=== PATIENT | female | born 1955 | race Caucasian/White ===

== ENCOUNTER → 2017-06-17 13:10 | Outpatient (CLI) | payer OTHER, SELFPAY ==
[2017-04-11 13:09] VITALS: BMI 21.4
[2017-04-11 14:24] VITALS: BP 111/46
[2017-06-17 13:37] LABS: Absolute Lymphocyte Count 2.34 X10^3/ul (0.83-4.51); Basophil# 0.03 X10^3/uL; Basophil% 0.4 % (0-1); Eosinophil# 0.07 X10^3/uL; Hematocrit 42.7 % (37-47); Hemoglobin 13.9 g/dl (12.0-15.0); Lymphocyte # 2.34 X10^3/ul (4.0); Lymphocyte % 33.3 % (19-41); Mean Corp Hgb Conc 32.6 g/gl (32-36); Mean Corpuscular Hgb 30.5 pg (27.0-32.0); Mean Corpuscular Volume 93.8 fL (81-99); Mean Platelet Vol. 10.8 fl (6.2-12.0); Monocyte# 0.58 X10^3/uL; Monocyte% 8.3 % (0-10); Neutrophil % 56.9 % (47-70); Platelet Count 170 K/mm3 (150-450); Red Blood Count 4.55 M/mm3 (4.2-5.4)
[2017-06-17 13:41] LABS: POSITIVE COUNT NO; POSITIVE DIFFERENTIAL NO; POSITIVE MORPHOLOGY NO
[2017-06-17 14:02] LABS: AST(SGOT) 19 U/L (15-37); Alanine Aminotransfer ALT/SGPT 27 U/L (13-56); Albumin, Serum 3.9 g/dL (3.2-5.0); Alkaline Phosphatase 88 U/L (45-117); Anion Gap 6 (5-15); BUN 13 mg/dL (7-18); BUN/Creat Ratio 19.3 RATIO (10-20); Calcium,Total 9.3 mg/dL (8.5-10.1); Chloride 107 mmol/L (98-107); Creatinine, Serum 0.67 mg/dL (0.55-1.02); EST Glomerular Filtration Rate 94 mL/min (>60); Est Glom Filt Rate - Afr Amer 114 mL/min (>60); Globulin 3.8 g/dL (2.2-4.2); Glucose 102 mg/dL (74-106); Potassium 4.2 mmol/L (3.5-5.1); Protein, Total 7.7 g/dL (6.4-8.2); Sodium Level 142 mmol/L (136-145)
== END ==
PROVIDERS: Family Provider Family Medicine; PCP Family Medicine; Visit Provider Internal Medicine Rheumatology
DX: L40.59 Other psoriatic arthropathy (principal); Z79.899 Other long term (current) drug therapy; L40.8 Other psoriasis; I49.9 Cardiac arrhythmia, unspecified
CPT/HCPCS: 36415; 80053; 85025

== ENCOUNTER → 2017-09-05 13:23 | Outpatient (CLI) | payer OTHER, SELFPAY ==
[2017-09-05 13:55] LABS: Absolute Lymphocyte Count 2.15 X10^3/ul (0.83-4.51); Absolute Neutrophil Count 3.6 X10^3/uL (2.0-7.7); Basophil# 0.04 X10^3/uL; Basophil% 0.6 % (0-1); Eosinophil# 0.04 X10^3/uL; Eosinophils% 0.6 % (0-5); Hematocrit 39.2 % (37-47); Hemoglobin 13.2 g/dl (12.0-15.0); Lymphocyte # 2.15 X10^3/ul (4.0); Lymphocyte % 32.8 % (19-41); Mean Corp Hgb Conc 33.7 g/gl (32-36); Mean Corpuscular Hgb 31.7 pg (27.0-32.0); Mean Corpuscular Volume 94.2 fL (81-99); Mean Platelet Vol. 10.8 fl (6.2-12.0); Monocyte# 0.72 X10^3/uL; Neutrophil % 54.8 % (47-70); Platelet Count 167 K/mm3 (150-450); RBC Distribution Width CV 14.1 % (11.6-14.6); RBC Distribution Width SD 46.5 fl (35.1-43.9); Red Blood Count 4.16 M/mm3 (4.2-5.4); White Blood Count 6.6 K/mm3 (4.4-11.0)
[2017-09-05 14:02] LABS: POSITIVE COUNT NO; POSITIVE DIFFERENTIAL NO; POSITIVE MORPHOLOGY NO
[2017-09-05 14:15] LABS: ALB/GLOB Ratio 1.1 RATIO (0.9-2.4); AST(SGOT) 29 U/L (15-37); Alanine Aminotransfer ALT/SGPT 32 U/L (13-56); Albumin, Serum 3.9 g/dL (3.2-5.0); Alkaline Phosphatase 93 U/L (45-117); Anion Gap 6 (5-15); BUN 18 mg/dL (7-18); BUN/Creat Ratio 25.1 RATIO (10-20); Chloride 108 mmol/L (98-107); Creatinine, Serum 0.72 mg/dL (0.55-1.02); EST Glomerular Filtration Rate 87 mL/min (>60); Est Glom Filt Rate - Afr Amer 106 mL/min (>60); Globulin 3.6 g/dL (2.2-4.2); Glucose 87 mg/dL (74-106); Potassium 3.7 mmol/L (3.5-5.1); Protein, Total 7.5 g/dL (6.4-8.2); Sodium Level 141 mmol/L (136-145)
== END ==
PROVIDERS: Family Provider Family Medicine; PCP Family Medicine; Visit Provider Internal Medicine Rheumatology
DX: L40.59 Other psoriatic arthropathy (principal); Z79.899 Other long term (current) drug therapy; L40.8 Other psoriasis; I49.9 Cardiac arrhythmia, unspecified
CPT/HCPCS: 36415; 80053; 85025

== ENCOUNTER → 2017-11-30 14:04 | Outpatient (CLI) | payer OTHER, SELFPAY ==
[2017-11-30 15:09] LABS: Basophil% 0.4 % (0-1); Eosinophils% 0.9 % (0-5); Hematocrit 40.7 % (37-47); Hemoglobin 13.5 g/dl (12.0-15.0); Lymphocyte % 29.8 % (19-41); Mean Corp Hgb Conc 33.2 g/gl (32-36); Mean Corpuscular Volume 93.6 fL (81-99); Mean Platelet Vol. 11.3 fl (6.2-12.0); Monocyte% 8.7 % (0-10); Neutrophil # 4.65 X10^3/uL (2.7-7.7); Neutrophil % 60.1 % (47-70); Platelet Count 160 K/mm3 (150-450); RBC Distribution Width CV 13.5 % (11.6-14.6); RBC Distribution Width SD 46.1 fl (35.1-43.9); Red Blood Count 4.35 M/mm3 (4.2-5.4); White Blood Count 7.7 K/mm3 (4.4-11.0)
[2017-11-30 15:10] LABS: Absolute Lymphocyte Count 2.31 X10^3/ul (0.83-4.51); Absolute Neutrophil Count 4.7 X10^3/uL (2.0-7.7); Basophil# 0.03 X10^3/uL; Eosinophil# 0.07 X10^3/uL; Lymphocyte # 2.31 X10^3/ul (4.0); Monocyte# 0.67 X10^3/uL; POSITIVE COUNT NO; POSITIVE DIFFERENTIAL NO; POSITIVE MORPHOLOGY NO
[2017-11-30 16:28] LABS: ALB/GLOB Ratio 1.1 RATIO (0.9-2.4); AST(SGOT) 22 U/L (15-37); Alanine Aminotransfer ALT/SGPT 30 U/L (13-56); Albumin, Serum 3.8 g/dL (3.2-5.0); Alkaline Phosphatase 82 U/L (45-117); Anion Gap 8 (5-15); BUN 18 mg/dL (7-18); Calcium,Total 9.1 mg/dL (8.5-10.1); Chloride 107 mmol/L (98-107); Creatinine, Serum 0.86 mg/dL (0.55-1.02); EST Glomerular Filtration Rate 71 mL/min (>60); Est Glom Filt Rate - Afr Amer 86 mL/min (>60); Globulin 3.6 g/dL (2.2-4.2); Glucose 88 mg/dL (74-106); Potassium 3.7 mmol/L (3.5-5.1); Protein, Total 7.4 g/dL (6.4-8.2); Sodium Level 143 mmol/L (136-145)
== END ==
PROVIDERS: Family Provider Family Medicine; PCP Family Medicine; Visit Provider Internal Medicine Rheumatology
DX: L40.59 Other psoriatic arthropathy (principal); Z79.899 Other long term (current) drug therapy; I49.9 Cardiac arrhythmia, unspecified
CPT/HCPCS: 36415; 80053; 85025

== ENCOUNTER → 2018-03-01 11:30 | Outpatient (CLI) | payer OTHER, SELFPAY ==
[2018-03-01 12:35] LABS: Absolute Lymphocyte Count 1.94 X10^3/ul (0.83-4.51); Absolute Neutrophil Count 2.7 X10^3/uL (2.0-7.7); Basophil# 0.03 X10^3/uL; Basophil% 0.6 % (0-1); Eosinophils% 1.9 % (0-5); Hematocrit 42.4 % (37-47); Hemoglobin 13.9 g/dl (12.0-15.0); Lymphocyte # 1.94 X10^3/ul (4.0); Lymphocyte % 36.7 % (19-41); Mean Corp Hgb Conc 32.8 g/gl (32-36); Mean Corpuscular Hgb 30.8 pg (27.0-32.0); Mean Platelet Vol. 11.1 fl (6.2-12.0); Monocyte# 0.46 X10^3/uL; Monocyte% 8.7 % (0-10); Neutrophil # 2.74 X10^3/uL (2.7-7.7); Neutrophil % 51.9 % (47-70); Platelet Count 186 K/mm3 (150-450); RBC Distribution Width SD 46.7 fl (35.1-43.9); Red Blood Count 4.51 M/mm3 (4.2-5.4); White Blood Count 5.3 K/mm3 (4.4-11.0)
[2018-03-01 12:38] LABS: POSITIVE COUNT NO; POSITIVE DIFFERENTIAL NO; POSITIVE MORPHOLOGY NO
[2018-03-01 12:59] LABS: AST(SGOT) 18 U/L (15-37); Alanine Aminotransfer ALT/SGPT 25 U/L (13-56); Albumin, Serum 3.9 g/dL (3.2-5.0); Alkaline Phosphatase 84 U/L (45-117); Anion Gap 6 (5-15); BUN 14 mg/dL (7-18); BUN/Creat Ratio 19.7 RATIO (10-20); Chloride 107 mmol/L (98-107); Creatinine, Serum 0.71 mg/dL (0.55-1.02); EST Glomerular Filtration Rate 89 mL/min (>60); Est Glom Filt Rate - Afr Amer 107 mL/min (>60); Glucose 84 mg/dL (74-106); Potassium 3.9 mmol/L (3.5-5.1); Protein, Total 7.9 g/dL (6.4-8.2); Sodium Level 141 mmol/L (136-145)
== END ==
PROVIDERS: Family Provider Family Medicine; PCP Family Medicine; Referring Provider Internal Medicine Rheumatology; Visit Provider Internal Medicine Rheumatology
DX: L40.59 Other psoriatic arthropathy (principal); Z79.899 Other long term (current) drug therapy; L40.8 Other psoriasis; I49.9 Cardiac arrhythmia, unspecified
CPT/HCPCS: 36415; 80053; 85025

== ENCOUNTER → 2018-06-01 11:01 | Outpatient (CLI) | payer OTHER, SELFPAY ==
[2018-06-01 11:40] LABS: Absolute Lymphocyte Count 2.36 X10^3/ul (0.83-4.51); Absolute Neutrophil Count 3.6 X10^3/uL (2.0-7.7); Basophil# 0.04 X10^3/uL; Basophil% 0.6 % (0-1); Eosinophil# 0.13 X10^3/uL; Hematocrit 42.8 % (37-47); Hemoglobin 13.7 g/dl (12.0-15.0); Lymphocyte # 2.36 X10^3/ul (4.0); Lymphocyte % 35.5 % (19-41); Mean Corpuscular Hgb 30.4 pg (27.0-32.0); Mean Corpuscular Volume 94.9 fL (81-99); Monocyte# 0.52 X10^3/uL; Monocyte% 7.8 % (0-10); Neutrophil # 3.58 X10^3/uL (2.7-7.7); Neutrophil % 53.8 % (47-70); Platelet Count 173 K/mm3 (150-450); RBC Distribution Width CV 14.5 % (11.6-14.6); Red Blood Count 4.51 M/mm3 (4.2-5.4); White Blood Count 6.7 K/mm3 (4.4-11.0)
[2018-06-01 11:45] LABS: POSITIVE COUNT NO; POSITIVE DIFFERENTIAL NO; POSITIVE MORPHOLOGY NO
[2018-06-01 12:20] LABS: ALB/GLOB Ratio 1.1 RATIO (0.9-2.4); AST(SGOT) 23 U/L (15-37); Alanine Aminotransfer ALT/SGPT 32 U/L (13-56); Alkaline Phosphatase 91 U/L (45-117); Anion Gap 6 (5-15); BUN 16 mg/dL (7-18); BUN/Creat Ratio 22.5 RATIO (10-20); Calcium,Total 9.2 mg/dL (8.5-10.1); Chloride 107 mmol/L (98-107); Creatinine, Serum 0.71 mg/dL (0.55-1.02); EST Glomerular Filtration Rate 88 mL/min (>60); Est Glom Filt Rate - Afr Amer 107 mL/min (>60); Globulin 3.7 g/dL (2.2-4.2); Glucose 75 mg/dL (74-106); Protein, Total 7.7 g/dL (6.4-8.2); Sodium Level 140 mmol/L (136-145)
== END ==
PROVIDERS: Family Provider Family Medicine; PCP Family Medicine; Referring Provider Internal Medicine Rheumatology; Visit Provider Internal Medicine Rheumatology
DX: L40.59 Other psoriatic arthropathy (principal); Z79.899 Other long term (current) drug therapy; L40.8 Other psoriasis; I49.9 Cardiac arrhythmia, unspecified
CPT/HCPCS: 36415; 80053; 85025

== ENCOUNTER → 2018-06-07 12:41 | Outpatient (CLI) | payer OTHER, SELFPAY ==
[2018-06-07 09:34] VITALS: BMI 21.7
== END ==
PROVIDERS: Family Provider Family Medicine; PCP Family Medicine; Referring Provider Nurse Practitioner Women's Health; Visit Provider Nurse Practitioner Women's Health
DX: N89.8 Other specified noninflammatory disorders of vagina (principal)
CPT/HCPCS: 87070; 87205

== ENCOUNTER → 2018-08-22 11:07 | Outpatient (CLI) | payer OTHER, SELFPAY ==
[2018-06-07 09:34] VITALS: BMI 21.7
[2018-08-22 12:22] LABS: Absolute Lymphocyte Count 2.34 X10^3/ul (0.83-4.51); Absolute Neutrophil Count 4.7 X10^3/uL (2.0-7.7); Basophil# 0.03 X10^3/uL; Basophil% 0.4 % (0-1); Eosinophil# 0.05 X10^3/uL; Eosinophils% 0.7 % (0-5); Hematocrit 42.4 % (37-47); Hemoglobin 14.1 g/dl (12.0-15.0); Lymphocyte # 2.34 X10^3/ul (4.0); Mean Corp Hgb Conc 33.3 g/gl (32-36); Mean Corpuscular Volume 93.2 fL (81-99); Mean Platelet Vol. 11.1 fl (6.2-12.0); Monocyte# 0.45 X10^3/uL; Neutrophil # 4.68 X10^3/uL (2.7-7.7); Neutrophil % 61.9 % (47-70); Platelet Count 170 K/mm3 (150-450); RBC Distribution Width CV 14.1 % (11.6-14.6); RBC Distribution Width SD 47.3 fl (35.1-43.9); Red Blood Count 4.55 M/mm3 (4.2-5.4); White Blood Count 7.6 K/mm3 (4.4-11.0)
[2018-08-22 12:28] LABS: POSITIVE COUNT NO; POSITIVE DIFFERENTIAL NO; POSITIVE MORPHOLOGY NO
[2018-08-22 13:04] LABS: ALB/GLOB Ratio 1.1 RATIO (0.9-2.4); AST(SGOT) 22 U/L (15-37); Alanine Aminotransfer ALT/SGPT 25 U/L (13-56); Albumin, Serum 3.9 g/dL (3.2-5.0); Alkaline Phosphatase 90 U/L (45-117); Anion Gap 9 (5-15); BUN 17 mg/dL (7-18); BUN/Creat Ratio 22.5 RATIO (10-20); Calcium,Total 9.2 mg/dL (8.5-10.1); Chloride 106 mmol/L (98-107); Creatinine, Serum 0.76 mg/dL (0.55-1.02); EST Glomerular Filtration Rate 82 mL/min (>60); Est Glom Filt Rate - Afr Amer 100 mL/min (>60); Globulin 3.7 g/dL (2.2-4.2); Glucose 86 mg/dL (74-106); Potassium 3.7 mmol/L (3.5-5.1); Protein, Total 7.6 g/dL (6.4-8.2); Sodium Level 143 mmol/L (136-145)
== END ==
PROVIDERS: Family Provider Family Medicine; PCP Family Medicine; Referring Provider Internal Medicine Rheumatology; Visit Provider Internal Medicine Rheumatology
DX: L40.59 Other psoriatic arthropathy (principal); L40.8 Other psoriasis; I49.9 Cardiac arrhythmia, unspecified; Z79.899 Other long term (current) drug therapy
CPT/HCPCS: 36415; 80053; 85025

== ENCOUNTER → 2018-11-21 | Outpatient (CLI) | payer OTHER, SELFPAY ==
[2018-06-07 09:34] VITALS: BMI 21.7
[2018-11-21 13:29] LABS: Absolute Lymphocyte Count 2.12 X10^3/uL (0.83-4.51); Absolute Neutrophil Count 4.2 X10^3/uL (2.0-7.7); Basophil# 0.05 X10^3/uL; Basophil% 0.7 % (0-1); Eosinophil# 0.14 X10^3/uL; Hematocrit 39.4 % (37-47); Hemoglobin 13.1 g/dL (12.0-15.0); Lymphocyte # 2.12 X10^3/ul (4.0); Mean Corp Hgb Conc 33.2 g/dL (32-36); Mean Corpuscular Hgb 31.3 pg (27.0-32.0); Mean Corpuscular Volume 94.3 fL (81-99); Mean Platelet Vol. 11.2 fl (6.2-12.0); Monocyte# 0.54 X10^3/uL; Monocyte% 7.6 % (0-10); NRBC Flagged by Analyzer 0 % (0-5); Neutrophil % 59.4 % (47-70); Platelet Count 150 K/mm3 (150-450); RBC Distribution Width CV 13.6 % (11.6-14.6); RBC Distribution Width SD 46.3 fl (35.1-43.9); Red Blood Count 4.18 M/mm3 (4.2-5.4); White Blood Count 7.1 K/mm3 (4.4-11.0)
[2018-11-21 13:55] LABS: ALB/GLOB Ratio 1.1 RATIO (0.9-2.4); AST(SGOT) 24 U/L (15-37); Alanine Aminotransfer ALT/SGPT 30 U/L (13-56); Albumin, Serum 3.7 g/dL (3.2-5.0); Alkaline Phosphatase 91 U/L (45-117); Anion Gap 4 (5-15); BUN 18 mg/dL (7-18); BUN/Creat Ratio 23.2 RATIO (10-20); Calcium,Total 8.9 mg/dL (8.5-10.1); Chloride 109 mmol/L (98-107); Creatinine, Serum 0.78 mg/dL (0.55-1.02); EST Glomerular Filtration Rate 80 mL/min (>60); Est Glom Filt Rate - Afr Amer 97 mL/min (>60); Globulin 3.5 g/dL (2.2-4.2); Glucose 107 mg/dL (74-106); Potassium 4.1 mmol/L (3.5-5.1); Protein, Total 7.2 g/dL (6.4-8.2); Sodium Level 141 mmol/L (136-145)
== END | disposition home or self-care (01) ==
LOC: LAB 12:19
PROVIDERS: Family Provider Family Medicine; PCP Family Medicine; Referring Provider Internal Medicine Rheumatology; Visit Provider Internal Medicine Rheumatology
DX: L40.59 Other psoriatic arthropathy (principal); Z79.899 Other long term (current) drug therapy; L40.8 Other psoriasis; I49.9 Cardiac arrhythmia, unspecified
CPT/HCPCS: 36415; 80053; 85025

== ENCOUNTER → 2019-02-16 11:45 | Outpatient (CLI) | payer OTHER, SELFPAY ==
[2018-06-07 09:34] VITALS: BMI 21.7
[2019-02-16 12:43] LABS: Absolute Lymphocyte Count 2.16 X10^3/uL (0.83-4.51); Absolute Neutrophil Count 4.1 X10^3/uL (2.0-7.7); Basophil# 0.05 X10^3/uL; Basophil% 0.7 % (0-1); Eosinophil# 0.09 X10^3/uL; Eosinophils% 1.3 % (0-5); Hematocrit 42.6 % (37-47); Hemoglobin 13.7 g/dL (12.0-15.0); Lymphocyte # 2.16 X10^3/ul (4.0); Lymphocyte % 30.7 % (19-41); Mean Corp Hgb Conc 32.2 g/dL (32-36); Mean Corpuscular Hgb 30.2 pg (27.0-32.0); Mean Platelet Vol. 11.3 fl (6.2-12.0); Monocyte# 0.61 X10^3/uL; Monocyte% 8.7 % (0-10); NRBC Flagged by Analyzer 0 % (0-5); Neutrophil # 4.09 X10^3/uL (2.7-7.7); Platelet Count 162 K/mm3 (150-450); RBC Distribution Width CV 13.5 % (11.6-14.6); RBC Distribution Width SD 46.5 fl (35.1-43.9); Red Blood Count 4.53 M/mm3 (4.2-5.4)
[2019-02-16 13:00] LABS: AST(SGOT) 21 U/L (15-37); Alanine Aminotransfer ALT/SGPT 26 U/L (13-56); Albumin, Serum 3.7 g/dL (3.2-5.0); Alkaline Phosphatase 88 U/L (45-117); Anion Gap 5 (5-15); BUN 19 mg/dL (7-18); BUN/Creat Ratio 22.2 RATIO (10-20); Chloride 108 mmol/L (98-107); Creatinine, Serum 0.86 mg/dL (0.55-1.02); EST Glomerular Filtration Rate 71 mL/min (>60); Est Glom Filt Rate - Afr Amer 86 mL/min (>60); Globulin 3.7 g/dL (2.2-4.2); Glucose 84 mg/dL (74-106); Potassium 3.9 mmol/L (3.5-5.1); Protein, Total 7.4 g/dL (6.4-8.2); Sodium Level 141 mmol/L (136-145)
== END ==
PROVIDERS: Family Provider Family Medicine; PCP Family Medicine; Referring Provider Internal Medicine Rheumatology; Visit Provider Internal Medicine Rheumatology
DX: L40.59 Other psoriatic arthropathy (principal); Z79.899 Other long term (current) drug therapy; L40.8 Other psoriasis; I49.9 Cardiac arrhythmia, unspecified; M72.0 Palmar fascial fibromatosis [Dupuytren]
CPT/HCPCS: 36415; 80053; 81241; 85025

== ENCOUNTER → 2019-06-11 16:40 | Outpatient (CLI) | payer OTHER, SELFPAY ==
[2018-06-07 09:34] VITALS: BMI 21.7
[2019-06-11 17:12] LABS: Absolute Lymphocyte Count 2.28 X10^3/uL (0.83-4.51); Absolute Neutrophil Count 4.8 X10^3/uL (2.0-7.7); Basophil# 0.04 X10^3/uL; Basophil% 0.5 % (0-1); Eosinophil# 0.09 X10^3/uL; Eosinophils% 1.1 % (0-5); Hematocrit 41.6 % (37-47); Hemoglobin 13.1 g/dL (12.0-15.0); Lymphocyte # 2.28 X10^3/ul (4.0); Mean Corp Hgb Conc 31.5 g/dL (32-36); Mean Corpuscular Hgb 29.7 pg (27.0-32.0); Mean Corpuscular Volume 94.3 fL (81-99); Mean Platelet Vol. 10.7 fl (6.2-12.0); Monocyte# 0.65 X10^3/uL; Monocyte% 8.3 % (0-10); NRBC Flagged by Analyzer 0 % (0-5); Neutrophil # 4.78 X10^3/uL (2.7-7.7); Platelet Count 180 K/mm3 (150-450); RBC Distribution Width CV 13.8 % (11.6-14.6); RBC Distribution Width SD 47.6 fl (35.1-43.9); Red Blood Count 4.41 M/mm3 (4.2-5.4); White Blood Count 7.9 K/mm3 (4.4-11.0)
[2019-06-11 18:04] LABS: ALB/GLOB Ratio 1.1 RATIO (0.9-2.4); AST(SGOT) 20 U/L (15-37); Alanine Aminotransfer ALT/SGPT 26 U/L (13-56); Albumin, Serum 3.9 g/dL (3.2-5.0); Alkaline Phosphatase 80 U/L (45-117); Anion Gap 4 (5-15); BUN 21 mg/dL (7-18); BUN/Creat Ratio 28.6 RATIO (10-20); Calcium,Total 9.3 mg/dL (8.5-10.1); Chloride 107 mmol/L (98-107); Creatinine, Serum 0.73 mg/dL (0.55-1.02); EST Glomerular Filtration Rate 85 mL/min (>60); Est Glom Filt Rate - Afr Amer 103 mL/min (>60); Globulin 3.4 g/dL (2.2-4.2); Glucose 88 mg/dL (74-106); Potassium 3.7 mmol/L (3.5-5.1); Protein, Total 7.3 g/dL (6.4-8.2); Sodium Level 139 mmol/L (136-145)
== END ==
PROVIDERS: PCP Family Medicine; Referring Provider Internal Medicine Rheumatology; Visit Provider Internal Medicine Rheumatology
DX: L40.59 Other psoriatic arthropathy (principal); Z79.899 Other long term (current) drug therapy; L40.8 Other psoriasis; M72.0 Palmar fascial fibromatosis [Dupuytren]; I49.9 Cardiac arrhythmia, unspecified
CPT/HCPCS: 36415; 80053; 81240; 85025

== ENCOUNTER → 2019-09-07 14:49 | Outpatient (CLI) | payer OTHER, SELFPAY ==
[2018-06-07 09:34] VITALS: BMI 21.7
[2019-09-07 17:42] LABS: Absolute Lymphocyte Count 1.99 X10^3/uL (0.83-4.51); Absolute Neutrophil Count 5.7 X10^3/uL (2.0-7.7); Basophil# 0.03 X10^3/uL; Basophil% 0.4 % (0-1); Eosinophil# 0.08 X10^3/uL; Hematocrit 40.7 % (37-47); Hemoglobin 12.9 g/dL (12.0-15.0); Lymphocyte # 1.99 X10^3/ul (4.0); Lymphocyte % 23.8 % (19-41); Mean Corp Hgb Conc 31.7 g/dL (32-36); Mean Corpuscular Hgb 29.9 pg (27.0-32.0); Mean Corpuscular Volume 94.4 fL (81-99); Mean Platelet Vol. 11.4 fl (6.2-12.0); Monocyte% 7.2 % (0-10); NRBC Flagged by Analyzer 0 % (0-5); Neutrophil # 5.65 X10^3/uL (2.7-7.7); Neutrophil % 67.4 % (47-70); Platelet Count 161 K/mm3 (150-450); RBC Distribution Width CV 13.7 % (11.6-14.6); RBC Distribution Width SD 47.5 fl (35.1-43.9); Red Blood Count 4.31 M/mm3 (4.2-5.4); White Blood Count 8.4 K/mm3 (4.4-11.0)
[2019-09-07 18:00] LABS: ALB/GLOB Ratio 1.1 RATIO (0.9-2.4); AST(SGOT) 20 U/L (15-37); Alanine Aminotransfer ALT/SGPT 32 U/L (13-56); Albumin, Serum 3.8 g/dL (3.2-5.0); Alkaline Phosphatase 60 U/L (45-117); Anion Gap 5 (5-15); BUN 20 mg/dL (7-18); BUN/Creat Ratio 25.2 RATIO (10-20); Calcium,Total 8.8 mg/dL (8.5-10.1); Chloride 108 mmol/L (98-107); Creatinine, Serum 0.79 mg/dL (0.55-1.02); EST Glomerular Filtration Rate 77 mL/min (>60); Est Glom Filt Rate - Afr Amer 94 mL/min (>60); Globulin 3.5 g/dL (2.2-4.2); Glucose 111 mg/dL (74-106); Potassium 3.5 mmol/L (3.5-5.1); Protein, Total 7.3 g/dL (6.4-8.2); Sodium Level 141 mmol/L (136-145)
== END ==
PROVIDERS: PCP Family Medicine; Referring Provider Internal Medicine Rheumatology; Visit Provider Internal Medicine Rheumatology
DX: L40.59 Other psoriatic arthropathy (principal); Z79.899 Other long term (current) drug therapy; L40.8 Other psoriasis; M72.0 Palmar fascial fibromatosis [Dupuytren]; I49.9 Cardiac arrhythmia, unspecified; D68.51 Activated protein C resistance
CPT/HCPCS: 36415; 80053; 85025

== ENCOUNTER → 2019-12-10 11:46 | Outpatient (CLI) | payer OTHER, SELFPAY ==
[2018-06-07 09:34] VITALS: BMI 21.7
[2019-12-10 12:19] LABS: Absolute Lymphocyte Count 1.89 X10^3/uL (0.83-4.51); Absolute Neutrophil Count 3.9 X10^3/uL (2.0-7.7); Basophil# 0.04 X10^3/uL; Basophil% 0.6 % (0-1); Eosinophil# 0.12 X10^3/uL; Eosinophils% 1.9 % (0-5); Hematocrit 41.4 % (37-47); Hemoglobin 13.6 g/dL (12.0-15.0); Lymphocyte # 1.89 X10^3/ul (4.0); Lymphocyte % 29.3 % (19-41); Mean Corp Hgb Conc 32.9 g/dL (32-36); Mean Corpuscular Volume 94.3 fL (81-99); Monocyte# 0.51 X10^3/uL; Monocyte% 7.9 % (0-10); NRBC Flagged by Analyzer 0 % (0-5); Neutrophil # 3.89 X10^3/uL (2.7-7.7); Neutrophil % 60.1 % (47-70); Platelet Count 154 K/mm3 (150-450); RBC Distribution Width CV 13.5 % (11.6-14.6); RBC Distribution Width SD 46.4 fl (35.1-43.9); Red Blood Count 4.39 M/mm3 (4.2-5.4); White Blood Count 6.5 K/mm3 (4.4-11.0)
[2019-12-10 12:41] LABS: AST(SGOT) 17 U/L (15-37); Alanine Aminotransfer ALT/SGPT 22 U/L (13-56); Albumin, Serum 3.7 g/dL (3.2-5.0); Alkaline Phosphatase 72 U/L (45-117); Anion Gap 4 (5-15); BUN 15 mg/dL (7-18); BUN/Creat Ratio 17.8 RATIO (10-20); Chloride 109 mmol/L (98-107); Creatinine, Serum 0.84 mg/dL (0.55-1.02); EST Glomerular Filtration Rate 72 mL/min (>60); Est Glom Filt Rate - Afr Amer 88 mL/min (>60); Globulin 3.6 g/dL (2.2-4.2); Glucose 107 mg/dL (74-106); Potassium 3.6 mmol/L (3.5-5.1); Protein, Total 7.3 g/dL (6.4-8.2); Sodium Level 142 mmol/L (136-145)
== END ==
PROVIDERS: PCP Family Medicine; Referring Provider Internal Medicine Rheumatology; Visit Provider Internal Medicine Rheumatology
DX: L40.59 Other psoriatic arthropathy (principal); Z79.899 Other long term (current) drug therapy; L40.8 Other psoriasis; M72.0 Palmar fascial fibromatosis [Dupuytren]; I49.9 Cardiac arrhythmia, unspecified; D68.51 Activated protein C resistance
CPT/HCPCS: 36415; 80053; 85025

== ENCOUNTER → 2020-03-10 12:18 | Outpatient (CLI) | payer OTHER, SELFPAY ==
[2018-06-07 09:34] VITALS: BMI 21.7
[2020-03-10 15:10] LABS: Absolute Lymphocyte Count 2.08 X10^3/uL (0.83-4.51); Absolute Neutrophil Count 6.2 X10^3/uL (2.0-7.7); Basophil# 0.04 X10^3/uL; Basophil% 0.4 % (0-1); Eosinophil# 0.05 X10^3/uL; Eosinophils% 0.6 % (0-5); Hemoglobin 14.1 g/dL (12.0-15.0); Lymphocyte # 2.08 X10^3/ul (4.0); Mean Corpuscular Hgb 30.1 pg (27.0-32.0); Mean Platelet Vol. 11.6 fl (6.2-12.0); Monocyte# 0.61 X10^3/uL; Monocyte% 6.7 % (0-10); NRBC Flagged by Analyzer 0 % (0-5); Neutrophil # 6.22 X10^3/uL (2.7-7.7); Neutrophil % 68.9 % (47-70); Platelet Count 169 K/mm3 (150-450); RBC Distribution Width CV 13.6 % (11.6-14.6); RBC Distribution Width SD 47.2 fl (35.1-43.9); Red Blood Count 4.68 M/mm3 (4.2-5.4)
[2020-03-10 15:52] LABS: ALB/GLOB Ratio 1.1 RATIO (0.9-2.4); AST(SGOT) 21 U/L (15-37); Alanine Aminotransfer ALT/SGPT 24 U/L (13-56); Albumin, Serum 4.1 g/dL (3.2-5.0); Alkaline Phosphatase 82 U/L (45-117); Anion Gap 8 (5-15); BUN 20 mg/dL (7-18); BUN/Creat Ratio 23.8 RATIO (10-20); Calcium,Total 9.3 mg/dL (8.5-10.1); Chloride 105 mmol/L (98-107); Creatinine, Serum 0.84 mg/dL (0.55-1.02); EST Glomerular Filtration Rate 72 mL/min (>60); Est Glom Filt Rate - Afr Amer 87 mL/min (>60); Globulin 3.8 g/dL (2.2-4.2); Glucose 89 mg/dL (74-106); Potassium 3.6 mmol/L (3.5-5.1); Protein, Total 7.9 g/dL (6.4-8.2); Sodium Level 139 mmol/L (136-145)
== END ==
PROVIDERS: PCP Family Medicine; Referring Provider Internal Medicine Rheumatology; Visit Provider Internal Medicine Rheumatology
DX: L40.59 Other psoriatic arthropathy (principal); Z79.899 Other long term (current) drug therapy; L40.8 Other psoriasis; M72.0 Palmar fascial fibromatosis [Dupuytren]; I49.9 Cardiac arrhythmia, unspecified; D68.51 Activated protein C resistance; H40.9 Unspecified glaucoma
CPT/HCPCS: 36415; 80053; 85025

== ENCOUNTER → 2020-05-23 12:54 | Outpatient (CLI) | payer OTHER, SELFPAY ==
[2018-06-07 09:34] VITALS: BMI 21.7
[2020-05-23 14:58] LABS: Absolute Neutrophil Count 3.6 X10^3/uL (2.0-7.7); Basophil# 0.04 X10^3/uL; Basophil% 0.6 % (0-1); Eosinophil# 0.07 X10^3/uL; Eosinophils% 1.1 % (0-5); Hematocrit 41.7 % (37-47); Hemoglobin 13.2 g/dL (12.0-15.0); Mean Corp Hgb Conc 31.7 g/dL (32-36); Mean Corpuscular Hgb 30.2 pg (27.0-32.0); Mean Corpuscular Volume 95.4 fL (81-99); Mean Platelet Vol. 11.4 fl (6.2-12.0); Monocyte# 0.56 X10^3/uL; Monocyte% 8.5 % (0-10); NRBC Flagged by Analyzer 0 % (0-5); Neutrophil % 54.6 % (47-70); Platelet Count 165 K/mm3 (150-450); RBC Distribution Width CV 13.6 % (11.6-14.6); RBC Distribution Width SD 47.9 fl (35.1-43.9); Red Blood Count 4.37 M/mm3 (4.2-5.4); White Blood Count 6.6 K/mm3 (4.4-11.0)
[2020-05-23 15:09] LABS: ALB/GLOB Ratio 1.1 RATIO (0.9-2.4); AST(SGOT) 16 U/L (15-37); Alanine Aminotransfer ALT/SGPT 26 U/L (13-56); Albumin, Serum 3.8 g/dL (3.2-5.0); Alkaline Phosphatase 85 U/L (45-117); Anion Gap 4 (5-15); BUN 21 mg/dL (7-18); BUN/Creat Ratio 30.8 RATIO (10-20); Calcium,Total 9.1 mg/dL (8.5-10.1); Chloride 107 mmol/L (98-107); Creatinine, Serum 0.68 mg/dL (0.55-1.02); EST Glomerular Filtration Rate 92 mL/min (>60); Est Glom Filt Rate - Afr Amer 111 mL/min (>60); Globulin 3.5 g/dL (2.2-4.2); Glucose 82 mg/dL (74-106); Potassium 3.6 mmol/L (3.5-5.1); Protein, Total 7.3 g/dL (6.4-8.2); Sodium Level 140 mmol/L (136-145)
== END ==
PROVIDERS: PCP Family Medicine; Referring Provider Internal Medicine Rheumatology; Visit Provider Internal Medicine Rheumatology
DX: L40.59 Other psoriatic arthropathy (principal); Z79.899 Other long term (current) drug therapy; L40.8 Other psoriasis; M72.0 Palmar fascial fibromatosis [Dupuytren]; I49.9 Cardiac arrhythmia, unspecified; D68.51 Activated protein C resistance; H40.9 Unspecified glaucoma
CPT/HCPCS: 36415; 80053; 85025

== ENCOUNTER → 2020-07-30 10:28 | Outpatient (CLI) | payer OTHER, SELFPAY ==
[2020-07-02 10:44] VITALS: BMI 21.0
--- NOTE | 2020-07-30 10:31 | BI_ITS ---
MAMMOGRAPHY - BILATERAL SCREENING REASON FOR EXAM: Female, 65 years old. Routine annual screening examination. PERTINENT HISTORY: Non-contributory. Remote left excisional breast biopsy. TECHNIQUE: Digital bilateral breast molly (3D mammographic acquisition) in the CC and MLO projections. 2-D mediolateral oblique (MLO) and craniocaudad (CC) views of both breasts were obtained. CAD: Full Field Digital Mammography with Computer Added Detection was performed. COMPARISON: Comparison is made with prior examination 08/12/2016. FINDINGS: Breast Composition: The breasts are extremely dense, which lowers the sensitivity of mammography. There are no dominant masses or suspicious calcifications. Stable benign-appearing bilateral calcifications. The battery pack of a pacemaker is seen in the left axillary region. No other significant abnormalities are identified. There has been no significant change since the prior study. BI/SCRN MAMM (CAD)W/MOLLY BILAT IMPRESSION: Stable bilateral screening mammogram. Yearly follow-up mammogram recommended. (A) ASSESSMENT CATEGORY: BIRADS Category 2: Benign. A letter regarding these results will be sent to the patient by the facility within 30 days. Approximately 10% of breast cancers are not detected by mammography. A normal mammogram should not delay biopsy of a clinically suspicious abnormality. [id number] Electronically Signed: Shahriar Keane MD at 12:40 EDT , Service support ,
--- NOTE | 2020-07-30 10:33 | BD_ITS ---
STUDY: DUAL ENERGY X-RAY ABSORPTIOMETRY / DXA REASON FOR EXAM: Female, 65 years old. Postmenopausal TECHNIQUE: Bone Mineral Density (BMD) measurements of lumbar spine and bilateral hips were obtained. COMPARISON: None. FINDINGS: Lumbar Spine (L1-L4): g/cm2 (0.856) / T-score (-2.7) / Z-score (-1.1) Findings are suggestive of osteoporosis with a high fracture risk. Left Femur Total: g/cm2 (0.696) / T-score (-2.5) / Z-score (-1.3) Left Femoral Neck: g/cm2 (0.671) / T-score (-2.6) / Z-score (-1.2) Right Femur Total: g/cm2 (0.756) / T-score (-2.0) / Z-score (-0.8) Right Femoral Neck: g/cm2 (0.739) / T-score (-2.1) / Z-score (-0.7) BD/Dexa Bone Density Study IMPRESSION: The patient is considered osteoporotic as outlined below according to World Rash[employer] Organization (WHO) criteria with a high fracture risk. Reference Information: The T-score is the number of standard deviations above or below the standard which is normal for young adults at their peak bone mineral density. The World Health Organization (WHO) interprets the T-scores as follows: Above -1 Normal bone density Between -1 and -2.5 Osteopenia Equal to / or below -2.5 Osteoporosis As a practical clinical guideline, osteopenia may be graded as follows: Mild -1 through -1.5 Moderate -1.6 through -2.0 Severe -2.1 through -2.4 The Z-score is the number of standard deviations above or below age-matched controls. A Z-score of less than -1.5 would be considered abnormal. References: 1. NIH Osteoporosis and Related Bone Diseases www osteo.org 2. International Society for Clinical Densitometry www iscd.org 3. National Osteoporosis Foundation www nof.org Electronically Signed: Shahriar Keane MD at 14:11 EDT , Service support ,
== END ==
PROVIDERS: PCP Family Medicine; Referring Provider Nurse Practitioner Women's Health; Visit Provider Nurse Practitioner Women's Health
DX: Z12.31 Encounter for screening mammogram for malignant neoplasm of breast (principal); Z78.0 Asymptomatic menopausal state
CPT/HCPCS: 77063; 77067; 77080

== ENCOUNTER → 2020-08-06 14:58 | Outpatient (CLI) | payer OTHER, SELFPAY ==
[2020-07-30 13:03] VITALS: BMI 21.2
[2020-08-06 17:45] LABS: Basophil# 0.04 X10^3/uL; Basophil% 0.6 % (0-1); Eosinophil# 0.07 X10^3/uL; Hematocrit 41.5 % (37-47); Mean Corp Hgb Conc 31.3 g/dL (32-36); Mean Corpuscular Volume 95.8 fL (81-99); Mean Platelet Vol. 11.3 fl (6.2-12.0); Monocyte% 8.6 % (0-10); NRBC Flagged by Analyzer 0 % (0-5); Neutrophil # 3.95 X10^3/uL (2.7-7.7); Neutrophil % 56.5 % (47-70); Platelet Count 179 K/mm3 (150-450); RBC Distribution Width CV 13.5 % (11.6-14.6); RBC Distribution Width SD 48.2 fl (35.1-43.9); Red Blood Count 4.33 M/mm3 (4.2-5.4)
[2020-08-06 18:11] LABS: AST(SGOT) 25 U/L (15-37); Alanine Aminotransfer ALT/SGPT 33 U/L (13-56); Albumin, Serum 3.9 g/dL (3.2-5.0); Alkaline Phosphatase 91 U/L (45-117); Anion Gap 3 (5-15); BUN 18 mg/dL (7-18); BUN/Creat Ratio 20.2 RATIO (10-20); Calcium,Total 9.1 mg/dL (8.5-10.1); Chloride 106 mmol/L (98-107); Creatinine, Serum 0.89 mg/dL (0.55-1.02); EST Glomerular Filtration Rate 68 mL/min (>60); Est Glom Filt Rate - Afr Amer 82 mL/min (>60); Globulin 3.8 g/dL (2.2-4.2); Glucose 87 mg/dL (74-106); Potassium 3.6 mmol/L (3.5-5.1); Protein, Total 7.7 g/dL (6.4-8.2); Sodium Level 138 mmol/L (136-145)
== END ==
PROVIDERS: PCP Family Medicine; Referring Provider Internal Medicine Rheumatology; Visit Provider Internal Medicine Rheumatology
DX: L40.59 Other psoriatic arthropathy (principal); Z79.899 Other long term (current) drug therapy; L40.8 Other psoriasis; M72.0 Palmar fascial fibromatosis [Dupuytren]; I49.9 Cardiac arrhythmia, unspecified; D68.51 Activated protein C resistance; H40.9 Unspecified glaucoma
CPT/HCPCS: 36415; 80053; 85025

== ENCOUNTER → 2020-08-20 10:45 | Outpatient (CLI) | payer OTHER, SELFPAY ==
[2020-08-20 10:12] VITALS: BMI 20.9
[2020-08-20 13:00] LABS: Vitamin D,25 Hydroxy 36.4 ng/mL
[2020-08-20 13:08] LABS: Cholesterol 253 mg/dL (200); High Density Lipoprotein 102 mg/dL; Triglycerides 53 mg/dL; Very Low Density Lipoprotein 11 mg/dL (5-40)
== END ==
PROVIDERS: PCP Internal Medicine; Referring Provider Internal Medicine; Visit Provider Internal Medicine
DX: M81.0 Age-related osteoporosis without current pathological fracture (principal); I48.0 Paroxysmal atrial fibrillation
CPT/HCPCS: 36415; 80061; 82306

== ENCOUNTER → 2020-11-11 16:08 | Outpatient (CLI) | payer OTHER, SELFPAY ==
[2020-09-23 15:20] VITALS: BMI 20.9
[2020-11-11 18:14] LABS: Absolute Lymphocyte Count 2.03 X10^3/uL (0.83-4.51); Absolute Neutrophil Count 3.3 X10^3/uL (2.0-7.7); Basophil# 0.04 X10^3/uL; Basophil% 0.7 % (0-1); Eosinophil# 0.11 X10^3/uL; Eosinophils% 1.8 % (0-5); Hematocrit 38.4 % (37-47); Hemoglobin 12.4 g/dL (12.0-15.0); Lymphocyte # 2.03 X10^3/ul (0.83-4.51); Lymphocyte % 33.2 % (19-41); Mean Corp Hgb Conc 32.3 g/dL (32-36); Mean Corpuscular Hgb 30.6 pg (27.0-32.0); Mean Corpuscular Volume 94.8 fL (81-99); Mean Platelet Vol. 11.1 fl (6.2-12.0); Monocyte# 0.62 X10^3/uL; Monocyte% 10.1 % (0-10); NRBC Flagged by Analyzer 0 % (0-5); Neutrophil # 3.29 X10^3/uL (2.7-7.7); Neutrophil % 53.9 % (47-70); Platelet Count 136 K/mm3 (150-450); RBC Distribution Width CV 13.5 % (11.6-14.6); RBC Distribution Width SD 47.5 fl (35.1-43.9); Red Blood Count 4.05 M/mm3 (4.2-5.4); White Blood Count 6.1 K/mm3 (4.4-11.0)
[2020-11-11 18:29] LABS: ALB/GLOB Ratio 1.1 RATIO (0.9-2.4); AST(SGOT) 21 U/L (15-37); Alanine Aminotransfer ALT/SGPT 29 U/L (13-56); Albumin, Serum 3.5 g/dL (3.2-5.0); Alkaline Phosphatase 71 U/L (45-117); Anion Gap 5 (5-15); BUN 18 mg/dL (7-18); BUN/Creat Ratio 21.3 RATIO (10-20); Calcium,Total 8.7 mg/dL (8.5-10.1); Chloride 109 mmol/L (98-107); Creatinine, Serum 0.85 mg/dL (0.55-1.02); EST Glomerular Filtration Rate 72 mL/min (>60); Est Glom Filt Rate - Afr Amer 87 mL/min (>60); Globulin 3.3 g/dL (2.2-4.2); Glucose 105 mg/dL (74-106); Potassium 3.8 mmol/L (3.5-5.1); Protein, Total 6.8 g/dL (6.4-8.2); Sodium Level 141 mmol/L (136-145)
== END ==
PROVIDERS: PCP Internal Medicine; Referring Provider Internal Medicine Rheumatology; Visit Provider Internal Medicine Rheumatology
DX: L40.59 Other psoriatic arthropathy (principal); Z79.899 Other long term (current) drug therapy; L40.8 Other psoriasis; M72.0 Palmar fascial fibromatosis [Dupuytren]; I49.9 Cardiac arrhythmia, unspecified; D68.51 Activated protein C resistance; H40.9 Unspecified glaucoma
CPT/HCPCS: 36415; 80053; 85025

== ENCOUNTER → 2021-01-26 14:31 | Outpatient (CLI) | payer OTHER, SELFPAY ==
[2021-01-26 18:06] LABS: Absolute Lymphocyte Count 2.11 X10^3/uL (0.83-4.51); Absolute Neutrophil Count 5.2 X10^3/uL (2.0-7.7); Basophil# 0.04 X10^3/uL; Basophil% 0.5 % (0-1); Eosinophils% 1.2 % (0-5); Hemoglobin 13.5 g/dL (12.0-15.0); Lymphocyte # 2.11 X10^3/ul (0.83-4.51); Lymphocyte % 26.3 % (19-41); Mean Corp Hgb Conc 32.1 g/dL (32-36); Mean Corpuscular Volume 96.6 fL (81-99); Mean Platelet Vol. 11.3 fl (6.2-12.0); Monocyte# 0.57 X10^3/uL; Monocyte% 7.1 % (0-10); NRBC Flagged by Analyzer 0 % (0-5); Neutrophil # 5.19 X10^3/uL (2.7-7.7); Neutrophil % 64.7 % (47-70); Platelet Count 161 K/mm3 (150-450); RBC Distribution Width CV 13.9 % (11.6-14.6); RBC Distribution Width SD 49.1 fl (35.1-43.9); Red Blood Count 4.35 M/mm3 (4.2-5.4)
[2021-01-26 18:36] LABS: ALB/GLOB Ratio 0.9 RATIO (0.9-2.4); AST(SGOT) 20 U/L (15-37); Alanine Aminotransfer ALT/SGPT 33 U/L (13-56); Albumin, Serum 3.6 g/dL (3.2-5.0); Alkaline Phosphatase 63 U/L (45-117); Anion Gap 5 (5-15); BUN 17 mg/dL (7-18); BUN/Creat Ratio 20.5 RATIO (10-20); Calcium,Total 9.7 mg/dL (8.5-10.1); Chloride 106 mmol/L (98-107); Creatinine, Serum 0.83 mg/dL (0.55-1.02); EST Glomerular Filtration Rate 73 mL/min (>60); Est Glom Filt Rate - Afr Amer 88 mL/min (>60); Globulin 3.8 g/dL (2.2-4.2); Glucose 100 mg/dL (74-106); Potassium 3.7 mmol/L (3.5-5.1); Protein, Total 7.4 g/dL (6.4-8.2); Sodium Level 141 mmol/L (136-145)
== END ==
PROVIDERS: PCP Internal Medicine; Referring Provider Internal Medicine Rheumatology; Visit Provider Internal Medicine Rheumatology
DX: L40.59 Other psoriatic arthropathy (principal); Z79.899 Other long term (current) drug therapy; L40.8 Other psoriasis; M72.0 Palmar fascial fibromatosis [Dupuytren]; I49.9 Cardiac arrhythmia, unspecified; D68.51 Activated protein C resistance; H40.9 Unspecified glaucoma; M81.0 Age-related osteoporosis without current pathological fracture
CPT/HCPCS: 36415; 80053; 85025

== ENCOUNTER → 2021-04-20 11:41 | Outpatient (CLI) | payer OTHER, SELFPAY ==
[2021-04-20 13:41] LABS: Absolute Lymphocyte Count 1.68 X10^3/uL (0.83-4.51); Basophil# 0.03 X10^3/uL; Basophil% 0.5 % (0-1); Eosinophil# 0.09 X10^3/uL; Eosinophils% 1.6 % (0-5); Hematocrit 40.8 % (37-47); Hemoglobin 13.5 g/dL (12.0-15.0); Lymphocyte # 1.68 X10^3/ul (0.83-4.51); Lymphocyte % 30.6 % (19-41); Mean Corp Hgb Conc 33.1 g/dL (32-36); Mean Corpuscular Hgb 31.3 pg (27.0-32.0); Mean Corpuscular Volume 94.4 fL (81-99); Mean Platelet Vol. 10.8 fl (6.2-12.0); Monocyte# 0.69 X10^3/uL; Monocyte% 12.6 % (0-10); NRBC Flagged by Analyzer 0 % (0-5); Neutrophil # 2.98 X10^3/uL (2.7-7.7); Neutrophil % 54.3 % (47-70); Platelet Count 156 K/mm3 (150-450); RBC Distribution Width CV 13.6 % (11.6-14.6); RBC Distribution Width SD 47.7 fl (35.1-43.9); Red Blood Count 4.32 M/mm3 (4.2-5.4); White Blood Count 5.5 K/mm3 (4.4-11.0)
[2021-04-20 13:52] LABS: AST(SGOT) 20 U/L (15-37); Alanine Aminotransfer ALT/SGPT 26 U/L (13-56); Albumin, Serum 3.7 g/dL (3.2-5.0); Alkaline Phosphatase 66 U/L (45-117); Anion Gap 4 (5-15); BUN 17 mg/dL (7-18); BUN/Creat Ratio 22.2 RATIO (10-20); Calcium,Total 9.1 mg/dL (8.5-10.1); Chloride 109 mmol/L (98-107); Creatinine, Serum 0.77 mg/dL (0.55-1.02); EST Glomerular Filtration Rate 80 mL/min (>60); Est Glom Filt Rate - Afr Amer 97 mL/min (>60); Globulin 3.7 g/dL (2.2-4.2); Glucose 87 mg/dL (74-106); Potassium 3.3 mmol/L (3.5-5.1); Protein, Total 7.4 g/dL (6.4-8.2); Sodium Level 142 mmol/L (136-145)
== END ==
PROVIDERS: PCP Internal Medicine; Referring Provider Internal Medicine Rheumatology; Visit Provider Internal Medicine Rheumatology
DX: L40.59 Other psoriatic arthropathy (principal); Z79.899 Other long term (current) drug therapy; L40.8 Other psoriasis; M72.0 Palmar fascial fibromatosis [Dupuytren]; I49.9 Cardiac arrhythmia, unspecified; D68.51 Activated protein C resistance; H40.9 Unspecified glaucoma; M81.0 Age-related osteoporosis without current pathological fracture
CPT/HCPCS: 36415; 80053; 85025

== ENCOUNTER 2021-06-01 08:58 | Outpatient (CLI) | payer OTHER, SELFPAY ==
[2021-06-01 12:44] LABS: AST(SGOT) 20 U/L (15-37); Alanine Aminotransfer ALT/SGPT 22 U/L (13-56); Albumin, Serum 3.6 g/dL (3.2-5.0); Alkaline Phosphatase 60 U/L (45-117); Anion Gap 5 (5-15); BUN 18 mg/dL (7-18); BUN/Creat Ratio 24.1 RATIO (10-20); Calcium,Total 9.4 mg/dL (8.5-10.1); Chloride 108 mmol/L (98-107); Creatinine, Serum 0.75 mg/dL (0.55-1.02); EST Glomerular Filtration Rate 82 mL/min (>60); Est Glom Filt Rate - Afr Amer 100 mL/min (>60); Globulin 3.6 g/dL (2.2-4.2); Glucose 102 mg/dL (74-106); Protein, Total 7.2 g/dL (6.4-8.2); Sodium Level 141 mmol/L (136-145)
[2021-06-01 12:47] LABS: Absolute Lymphocyte Count 2.36 X10^3/uL (0.83-4.51); Absolute Neutrophil Count 3.1 X10^3/uL (2.0-7.7); Basophil# 0.03 X10^3/uL; Basophil% 0.5 % (0-1); Eosinophil# 0.19 X10^3/uL; Hematocrit 40.2 % (37-47); Hemoglobin 13.1 g/dL (12.0-15.0); Lymphocyte # 2.36 X10^3/ul (0.83-4.51); Lymphocyte % 37.9 % (19-41); Mean Corp Hgb Conc 32.6 g/dL (32-36); Mean Corpuscular Hgb 30.8 pg (27.0-32.0); Mean Corpuscular Volume 94.4 fL (81-99); Mean Platelet Vol. 11.3 fl (6.2-12.0); Monocyte# 0.57 X10^3/uL; Monocyte% 9.1 % (0-10); NRBC Flagged by Analyzer 0 % (0-5); Neutrophil # 3.05 X10^3/uL (2.7-7.7); Platelet Count 166 K/mm3 (150-450); RBC Distribution Width SD 48.3 fl (35.1-43.9); Red Blood Count 4.26 M/mm3 (4.2-5.4); White Blood Count 6.2 K/mm3 (4.4-11.0)
== END 2021-06-01 23:59 | disposition short-term general hospital (02) ==
LOC: BIMLAB 08:59
PROVIDERS: PCP Internal Medicine; Referring Provider Internal Medicine; Visit Provider Internal Medicine
DX: Z01.812 Encounter for preprocedural laboratory examination (principal)
CPT/HCPCS: 36415; 80053; 85025

== ENCOUNTER 2021-06-02 09:55 | Outpatient (CLI) | payer OTHER, SELFPAY ==
--- NOTE | 2021-06-02 09:57 | EKG12_ITS ---
Test Reason : PRE OP Blood Pressure : / mmHG Vent. Rate : 065 BPM Atrial Rate : 065 BPM P-R Int : 208 ms QRS Dur : 074 ms QT Int : 398 ms P-R-T Axes : 114 071 024 degrees QTc Int : 413 ms AV dual-paced rhythm with frequent ventricular-paced complexes Abnormal ECG Confirmed by BIJAN MARRUFO, TYRONE ([id number]), scientific publications editor NILSA CRISTINA ([id number]) on 06/03/2021 9:05:21 AM Referred By: Devin Young Confirmed By:TYRONE THAKKAR MD
== END 2021-06-02 23:59 | disposition short-term general hospital (02) ==
LOC: PSN 09:56
PROVIDERS: PCP Internal Medicine; Referring Provider Internal Medicine; Visit Provider Internal Medicine
DX: Z01.810 Encounter for preprocedural cardiovascular examination (principal); I45.6 Pre-excitation syndrome
CPT/HCPCS: 93005

== ENCOUNTER 2021-07-03 16:52 | Outpatient (CLI) | payer OTHER, SELFPAY ==
[2021-07-03 17:43] LABS: Absolute Neutrophil Count 5.3 X10^3/uL (2.0-7.7); Basophil# 0.05 X10^3/uL; Basophil% 0.6 % (0-1); Eosinophil# 0.18 X10^3/uL; Eosinophils% 2.1 % (0-5); Hematocrit 40.9 % (37-47); Hemoglobin 13.4 g/dL (12.0-15.0); Lymphocyte % 26.7 % (19-41); Mean Corp Hgb Conc 32.8 g/dL (32-36); Mean Corpuscular Hgb 31.4 pg (27.0-32.0); Mean Corpuscular Volume 95.8 fL (81-99); Mean Platelet Vol. 10.6 fl (6.2-12.0); Monocyte# 0.77 X10^3/uL; Monocyte% 8.9 % (0-10); NRBC Flagged by Analyzer 0 % (0-5); Neutrophil % 61.4 % (47-70); Platelet Count 158 K/mm3 (150-450); RBC Distribution Width CV 14.3 % (11.6-14.6); RBC Distribution Width SD 49.5 fl (35.1-43.9); Red Blood Count 4.27 M/mm3 (4.2-5.4); White Blood Count 8.6 K/mm3 (4.4-11.0)
[2021-07-03 18:14] LABS: AST(SGOT) 16 U/L (15-37); Alanine Aminotransfer ALT/SGPT 23 U/L (13-56); Albumin, Serum 3.6 g/dL (3.2-5.0); Alkaline Phosphatase 72 U/L (45-117); Anion Gap 4 (5-15); BUN 24 mg/dL (7-18); Calcium,Total 9.2 mg/dL (8.5-10.1); Chloride 110 mmol/L (98-107); EST Glomerular Filtration Rate 59 mL/min (>60); Est Glom Filt Rate - Afr Amer 71 mL/min (>60); Globulin 3.5 g/dL (2.2-4.2); Glucose 111 mg/dL (74-106); Potassium 3.5 mmol/L (3.5-5.1); Protein, Total 7.1 g/dL (6.4-8.2); Sodium Level 142 mmol/L (136-145)
== END 2021-07-03 23:59 | disposition home or self-care (01) ==
LOC: MTLAB 16:54
PROVIDERS: PCP Internal Medicine; Referring Provider Internal Medicine Rheumatology; Visit Provider Internal Medicine Rheumatology
DX: L40.59 Other psoriatic arthropathy (principal); D68.51 Activated protein C resistance; Z79.899 Other long term (current) drug therapy; L40.8 Other psoriasis; M72.0 Palmar fascial fibromatosis [Dupuytren]; I49.9 Cardiac arrhythmia, unspecified; H40.9 Unspecified glaucoma; M81.0 Age-related osteoporosis without current pathological fracture
CPT/HCPCS: 36415; 80053; 85025

== ENCOUNTER → 2021-10-02 | Outpatient (CLI) | payer OTHER, SELFPAY ==
[2021-10-02 17:43] LABS: Absolute Lymphocyte Count 2.22 X10^3/uL (0.83-4.51); Absolute Neutrophil Count 3.9 X10^3/uL (2.0-7.7); Basophil# 0.04 X10^3/uL; Basophil% 0.6 % (0-1); Eosinophil# 0.09 X10^3/uL; Eosinophils% 1.3 % (0-5); Hematocrit 40.6 % (37-47); Hemoglobin 13.1 g/dL (12.0-15.0); Lymphocyte # 2.22 X10^3/ul (0.83-4.51); Lymphocyte % 32.2 % (19-41); Mean Corp Hgb Conc 32.3 g/dL (32-36); Mean Corpuscular Hgb 31.1 pg (27.0-32.0); Mean Corpuscular Volume 96.4 fL (81-99); Mean Platelet Vol. 10.7 fl (6.2-12.0); Monocyte# 0.63 X10^3/uL; Monocyte% 9.1 % (0-10); NRBC Flagged by Analyzer 0 % (0-5); Neutrophil # 3.88 X10^3/uL (2.7-7.7); Neutrophil % 56.4 % (47-70); Platelet Count 159 K/mm3 (150-450); RBC Distribution Width CV 13.4 % (11.6-14.6); RBC Distribution Width SD 47.5 fl (35.1-43.9); Red Blood Count 4.21 M/mm3 (4.2-5.4); White Blood Count 6.9 K/mm3 (4.4-11.0)
[2021-10-02 18:06] LABS: ALB/GLOB Ratio 1.1 RATIO (0.9-2.4); AST(SGOT) 20 U/L (15-37); Alanine Aminotransfer ALT/SGPT 26 U/L (13-56); Albumin, Serum 3.8 g/dL (3.2-5.0); Alkaline Phosphatase 59 U/L (45-117); Anion Gap 5 (5-15); BUN 20 mg/dL (7-18); BUN/Creat Ratio 25.5 RATIO (10-20); Calcium,Total 8.5 mg/dL (8.5-10.1); Chloride 109 mmol/L (98-107); Creatinine, Serum 0.78 mg/dL (0.55-1.02); EST Glomerular Filtration Rate 78 mL/min (>60); Est Glom Filt Rate - Afr Amer 94 mL/min (>60); Globulin 3.4 g/dL (2.2-4.2); Glucose 100 mg/dL (74-106); Protein, Total 7.2 g/dL (6.4-8.2); Sodium Level 140 mmol/L (136-145)
== END | disposition home or self-care (01) ==
LOC: MTLAB 15:34
PROVIDERS: PCP Internal Medicine; Referring Provider Internal Medicine Rheumatology; Visit Provider Internal Medicine Rheumatology
DX: L40.59 Other psoriatic arthropathy (principal); D68.51 Activated protein C resistance; Z79.899 Other long term (current) drug therapy; L40.8 Other psoriasis; M72.0 Palmar fascial fibromatosis [Dupuytren]; I49.9 Cardiac arrhythmia, unspecified; H40.9 Unspecified glaucoma; M81.0 Age-related osteoporosis without current pathological fracture
CPT/HCPCS: 36415; 80053; 85025

== ENCOUNTER → 2021-11-25 | Outpatient (CLI) | payer OTHER, SELFPAY ==
[2021-11-25 12:45] LABS: Vitamin D,25 Hydroxy 86.2 ng/mL
[2021-11-25 12:52] LABS: T4 Free Direct 0.95 ng/dL (0.76-1.46); Thyroid Stim Hormone (TSH) 0.57 uIU/mL (0.358-3.74)
== END | disposition home or self-care (01) ==
LOC: BIMLAB 09:59
PROVIDERS: PCP Internal Medicine; Referring Provider Internal Medicine; Visit Provider Internal Medicine
DX: K59.09 Other constipation (principal); M81.0 Age-related osteoporosis without current pathological fracture
CPT/HCPCS: 36415; 82306; 84439; 84443

== ENCOUNTER → 2022-01-04 | Outpatient (CLI) | payer OTHER, SELFPAY ==
[2022-01-04 15:08] LABS: AST(SGOT) 18 U/L (15-37); Alanine Aminotransfer ALT/SGPT 24 U/L (13-56); Albumin, Serum 3.6 g/dL (3.2-5.0); Alkaline Phosphatase 57 U/L (45-117); Anion Gap 6 (5-15); BUN 13 mg/dL (7-18); BUN/Creat Ratio 17.6 RATIO (10-20); Calcium,Total 8.7 mg/dL (8.5-10.1); Chloride 107 mmol/L (98-107); Creatinine, Serum 0.74 mg/dL (0.55-1.02); EST Glomerular Filtration Rate 84 mL/min (>60); Est Glom Filt Rate - Afr Amer 101 mL/min (>60); Globulin 3.6 g/dL (2.2-4.2); Glucose 89 mg/dL (74-106); Potassium 3.8 mmol/L (3.5-5.1); Protein, Total 7.2 g/dL (6.4-8.2); Sodium Level 140 mmol/L (136-145)
[2022-01-04 17:57] LABS: Absolute Lymphocyte Count 1.98 X10^3/uL (0.83-4.51); Absolute Neutrophil Count 4.2 X10^3/uL (2.0-7.7); Basophil# 0.04 X10^3/uL; Basophil% 0.6 % (0-1); Eosinophil# 0.12 X10^3/uL; Eosinophils% 1.7 % (0-5); Hematocrit 39.4 % (37-47); Lymphocyte # 1.98 X10^3/ul (0.83-4.51); Lymphocyte % 28.4 % (19-41); Mean Corpuscular Hgb 30.9 pg (27.0-32.0); Mean Corpuscular Volume 93.6 fL (81-99); Mean Platelet Vol. 11.3 fl (6.2-12.0); Monocyte# 0.64 X10^3/uL; Monocyte% 9.2 % (0-10); NRBC Flagged by Analyzer 0 % (0-5); Neutrophil # 4.16 X10^3/uL (2.7-7.7); Neutrophil % 59.8 % (47-70); Platelet Count 165 K/mm3 (150-450); RBC Distribution Width CV 13.8 % (11.6-14.6); RBC Distribution Width SD 46.8 fl (35.1-43.9); Red Blood Count 4.21 M/mm3 (4.2-5.4)
== END | disposition home or self-care (01) ==
PROVIDERS: PCP Internal Medicine; Referring Provider Internal Medicine Rheumatology; Visit Provider Internal Medicine Rheumatology
DX: L40.59 Other psoriatic arthropathy (principal); D68.51 Activated protein C resistance; Z79.899 Other long term (current) drug therapy; L40.8 Other psoriasis; M72.0 Palmar fascial fibromatosis [Dupuytren]; I49.9 Cardiac arrhythmia, unspecified; H40.9 Unspecified glaucoma; M81.0 Age-related osteoporosis without current pathological fracture
CPT/HCPCS: 36415; 80053; 85025

== ENCOUNTER → 2022-02-08 | Outpatient (CLI) | payer OTHER, SELFPAY ==
--- NOTE | 2022-02-08 11:56 | BI_ITS ---
MAMMOGRAPHY - BILATERAL SCREENING REASON FOR EXAM: Female, 66 years old. Routine annual screening examination. PERTINENT HISTORY: Non-contributory. TECHNIQUE: Digital bilateral breast molly (3D mammographic acquisition) in the CC and MLO projections. 2-D mediolateral oblique (MLO) and craniocaudad (CC) views of both breasts were obtained. CAD: Full Field Digital Mammography with Computer Added Detection was performed. COMPARISON: Comparison is made with prior examination of 07/30/2020. FINDINGS: Breast Composition: The breasts are extremely dense, which lowers the sensitivity of mammography. There are no dominant masses or suspicious calcifications. Stable scattered bilateral macrocalcifications. A battery pack from a pacemaker device is seen in the left axillary region. No other significant abnormalities are identified. There has been no significant change since the prior study. BI/SCRN MAMM (CAD)W/MOLLY BILAT IMPRESSION: Stable bilateral screening mammogram. Yearly follow-up mammogram recommended. (A) ASSESSMENT CATEGORY: BIRADS Category 2: Benign. A letter regarding these results will be sent to the patient by the facility within 30 days. Approximately 10% of breast cancers are not detected by mammography. A normal mammogram should not delay biopsy of a clinically suspicious abnormality. [id number] Electronically Signed: Shahriar Keane MD at 12:51 EDT ,
== END | disposition home or self-care (01) ==
LOC: OPBI 11:55
PROVIDERS: PCP Internal Medicine; Visit Provider Internal Medicine
DX: Z12.31 Encounter for screening mammogram for malignant neoplasm of breast (principal)
CPT/HCPCS: 77063; 77067

== ENCOUNTER 2022-03-29 14:28 | Outpatient (CLI) | payer OTHER, SELFPAY ==
[2022-03-29 17:48] LABS: Absolute Lymphocyte Count 1.87 X10^3/uL (0.83-4.51); Absolute Neutrophil Count 4.9 X10^3/uL (2.0-7.7); Basophil# 0.05 X10^3/uL; Basophil% 0.7 % (0-1); Eosinophil# 0.03 X10^3/uL; Eosinophils% 0.4 % (0-5); Hematocrit 42.3 % (37-47); Hemoglobin 13.9 g/dL (12.0-15.0); Lymphocyte # 1.87 X10^3/ul (0.83-4.51); Lymphocyte % 25.2 % (19-41); Mean Corp Hgb Conc 32.9 g/dL (32-36); Mean Corpuscular Hgb 30.8 pg (27.0-32.0); Mean Corpuscular Volume 93.8 fL (81-99); Monocyte% 8.1 % (0-10); NRBC Flagged by Analyzer 0 % (0-5); Neutrophil # 4.85 X10^3/uL (2.7-7.7); Neutrophil % 65.5 % (47-70); Platelet Count 146 K/mm3 (150-450); RBC Distribution Width CV 13.5 % (11.6-14.6); RBC Distribution Width SD 46.5 fl (35.1-43.9); Red Blood Count 4.51 M/mm3 (4.2-5.4); White Blood Count 7.4 K/mm3 (4.4-11.0)
[2022-03-29 18:29] LABS: ALB/GLOB Ratio 1.1 RATIO (0.9-2.4); AST(SGOT) 21 U/L (15-37); Alanine Aminotransfer ALT/SGPT 29 U/L (13-56); Albumin, Serum 3.9 g/dL (3.2-5.0); Alkaline Phosphatase 51 U/L (45-117); Anion Gap 8 (5-15); BUN 21 mg/dL (7-18); Calcium,Total 9.4 mg/dL (8.5-10.1); Chloride 105 mmol/L (98-107); Creatinine, Serum 0.75 mg/dL (0.55-1.02); EST Glomerular Filtration Rate 82 mL/min (>60); Est Glom Filt Rate - Afr Amer 99 mL/min (>60); Globulin 3.6 g/dL (2.2-4.2); Glucose 86 mg/dL (74-106); Potassium 3.8 mmol/L (3.5-5.1); Protein, Total 7.5 g/dL (6.4-8.2); Sodium Level 139 mmol/L (136-145)
== END 2022-03-29 23:59 | disposition home or self-care (01) ==
PROVIDERS: PCP Internal Medicine; Visit Provider Internal Medicine Rheumatology
DX: L40.59 Other psoriatic arthropathy (principal); D68.51 Activated protein C resistance; Z79.899 Other long term (current) drug therapy; L40.8 Other psoriasis; M72.0 Palmar fascial fibromatosis [Dupuytren]; I49.9 Cardiac arrhythmia, unspecified; H40.9 Unspecified glaucoma; M81.0 Age-related osteoporosis without current pathological fracture
CPT/HCPCS: 36415; 80053; 85025

== ENCOUNTER → 2022-06-18 | Outpatient (CLI) | payer OTHER, SELFPAY ==
[2022-06-18 17:45] LABS: Absolute Lymphocyte Count 2.47 X10^3/uL (0.83-4.51); Absolute Neutrophil Count 4.4 X10^3/uL (2.0-7.7); Basophil# 0.05 X10^3/uL; Basophil% 0.7 % (0-1); Eosinophil# 0.07 X10^3/uL; Eosinophils% 0.9 % (0-5); Hematocrit 41.8 % (37-47); Hemoglobin 13.3 g/dL (12.0-15.0); Lymphocyte # 2.47 X10^3/ul (0.83-4.51); Lymphocyte % 32.4 % (19-41); Mean Corp Hgb Conc 31.8 g/dL (32-36); Mean Corpuscular Hgb 30.2 pg (27.0-32.0); Mean Platelet Vol. 11.3 fl (6.2-12.0); Monocyte% 7.9 % (0-10); NRBC Flagged by Analyzer 0 % (0-5); Neutrophil # 4.41 X10^3/uL (2.7-7.7); Neutrophil % 57.7 % (47-70); Platelet Count 159 K/mm3 (150-450); RBC Distribution Width CV 13.9 % (11.6-14.6); RBC Distribution Width SD 48.5 fl (35.1-43.9); White Blood Count 7.6 K/mm3 (4.4-11.0)
[2022-06-18 17:58] LABS: ALB/GLOB Ratio 1.1 RATIO (0.9-2.4); AST(SGOT) 20 U/L (15-37); Alanine Aminotransfer ALT/SGPT 31 U/L (13-56); Albumin, Serum 3.9 g/dL (3.2-5.0); Alkaline Phosphatase 50 U/L (45-117); Anion Gap 8 (5-15); BUN 20 mg/dL (7-18); BUN/Creat Ratio 20.1 RATIO (10-20); Calcium,Total 9.1 mg/dL (8.5-10.1); Chloride 107 mmol/L (98-107); Creatinine, Serum 0.99 mg/dL (0.55-1.02); EST Glomerular Filtration Rate 59 mL/min (>60); Est Glom Filt Rate - Afr Amer 72 mL/min (>60); Globulin 3.6 g/dL (2.2-4.2); Glucose 101 mg/dL (74-106); Protein, Total 7.5 g/dL (6.4-8.2); Sodium Level 142 mmol/L (136-145)
[2022-06-18 18:03] LABS: Vitamin D,25 Hydroxy 104.3 ng/mL
== END | disposition home or self-care (01) ==
LOC: MTLAB 16:23
PROVIDERS: PCP Internal Medicine; Referring Provider Internal Medicine; Visit Provider Internal Medicine
DX: L40.59 Other psoriatic arthropathy (principal); D68.51 Activated protein C resistance; Z79.899 Other long term (current) drug therapy; L40.8 Other psoriasis; M72.0 Palmar fascial fibromatosis [Dupuytren]; I49.9 Cardiac arrhythmia, unspecified; H40.9 Unspecified glaucoma; M81.0 Age-related osteoporosis without current pathological fracture
CPT/HCPCS: 36415; 80053; 82306; 85025

== ENCOUNTER → 2022-08-03 | Outpatient (CLI) | payer OTHER, SELFPAY ==
--- NOTE | 2022-08-03 13:36 | BD_ITS ---
STUDY: DUAL ENERGY X-RAY ABSORPTIOMETRY / DXA REASON FOR EXAM: Female, 67 years old. Osteoporosis TECHNIQUE: Bone Mineral Density (BMD) measurements of lumbar spine and bilateral hips were obtained. COMPARISON: Comparison is made with prior study July 30, 2020. FINDINGS: Lumbar Spine (L1-L4): g/cm2 (0.783) / T-score (-2.4) / Z-score (-0.5) Findings are suggestive of osteopenia with a high fracture risk. Left Femur Total: g/cm2 (0.729) / T-score (-1.7) / Z-score (-0.4) Left Femoral Neck: g/cm2 (0.592) / T-score (-2.3) / Z-score (-0.7) Right Femur Total: g/cm2 (0.767) / T-score (-1.4) / Z-score (-0.1) Right Femoral Neck: g/cm2 (0.616) / T-score (-2.1) / Z-score (-0.5) The T-Scores on the most recent prior examination were: Lumbar Spine (L1-L4): There has been improvement of bone density since the previous examination. Left Femur Total: which represents an improvement of 14.1%. Right Femur Total: which represents an improvement of 9.9%. BD/Dexa Bone Density Study IMPRESSION: The patient is considered osteopenic as outlined below according to World Rash[employer] Organization (WHO) criteria with a high fracture risk. There has been improvement of bone density since the previous examination. Reference Information: The T-score is the number of standard deviations above or below the standard which is normal for young adults at their peak bone mineral density. The World Health Organization (WHO) interprets the T-scores as follows: Above -1 Normal bone density Between -1 and -2.5 Osteopenia Equal to / or below -2.5 Osteoporosis As a practical clinical guideline, osteopenia may be graded as follows: Mild -1 through -1.5 Moderate -1.6 through -2.0 Severe -2.1 through -2.4 The Z-score is the number of standard deviations above or below age-matched controls. A Z-score of less than -1.5 would be considered abnormal. References: 1. NIH Osteoporosis and Related Bone Diseases www osteo.org 2. International Society for Clinical Densitometry www iscd.org 3. National Osteoporosis Foundation www nof.org Electronically Signed: Shahriar Keane MD at 13:21 EDT ,
== END | disposition home or self-care (01) ==
PROVIDERS: PCP Internal Medicine; Visit Provider Internal Medicine
DX: M81.0 Age-related osteoporosis without current pathological fracture (principal); M85.80 Other specified disorders of bone density and structure, unspecified site
CPT/HCPCS: 77080

== ENCOUNTER → 2022-09-02 | Outpatient (CLI) | payer OTHER, SELFPAY ==
[2022-09-02 15:16] LABS: Absolute Lymphocyte Count 2.64 X10^3/uL (0.83-4.51); Absolute Neutrophil Count 3.9 X10^3/uL (2.0-7.7); Basophil# 0.05 X10^3/uL; Basophil% 0.7 % (0-1); Eosinophil# 0.07 X10^3/uL; Hematocrit 41.9 % (37-47); Hemoglobin 13.5 g/dL (12.0-15.0); Lymphocyte # 2.64 X10^3/ul (0.83-4.51); Lymphocyte % 36.1 % (19-41); Mean Corp Hgb Conc 32.2 g/dL (32-36); Mean Corpuscular Hgb 30.6 pg (27.0-32.0); Mean Platelet Vol. 11.6 fl (6.2-12.0); Monocyte# 0.63 X10^3/uL; Monocyte% 8.6 % (0-10); NRBC Flagged by Analyzer 0 % (0-5); Neutrophil % 53.3 % (47-70); Platelet Count 154 K/mm3 (150-450); RBC Distribution Width CV 13.7 % (11.6-14.6); RBC Distribution Width SD 47.9 fl (35.1-43.9); Red Blood Count 4.41 M/mm3 (4.2-5.4); White Blood Count 7.3 K/mm3 (4.4-11.0)
[2022-09-02 15:42] LABS: AST(SGOT) 26 U/L (15-37); Alanine Aminotransfer ALT/SGPT 43 U/L (13-56); Albumin, Serum 3.9 g/dL (3.2-5.0); Alkaline Phosphatase 61 U/L (45-117); Anion Gap 3 (5-15); BUN 20 mg/dL (7-18); BUN/Creat Ratio 25.6 RATIO (10-20); Calcium,Total 9.5 mg/dL (8.5-10.1); Chloride 107 mmol/L (98-107); Creatinine, Serum 0.78 mg/dL (0.55-1.02); EST Glomerular Filtration Rate 78 mL/min (>60); Est Glom Filt Rate - Afr Amer 95 mL/min (>60); Globulin 3.8 g/dL (2.2-4.2); Glucose 104 mg/dL (74-106); Potassium 3.8 mmol/L (3.5-5.1); Protein, Total 7.7 g/dL (6.4-8.2); Sodium Level 138 mmol/L (136-145)
== END | disposition home or self-care (01) ==
LOC: MTLAB 11:48
PROVIDERS: PCP Internal Medicine; Referring Provider Internal Medicine Rheumatology; Visit Provider Internal Medicine Rheumatology
DX: L40.59 Other psoriatic arthropathy (principal); D68.51 Activated protein C resistance; Z79.899 Other long term (current) drug therapy; L40.8 Other psoriasis; M72.0 Palmar fascial fibromatosis [Dupuytren]; I49.9 Cardiac arrhythmia, unspecified; H40.9 Unspecified glaucoma; M81.0 Age-related osteoporosis without current pathological fracture
CPT/HCPCS: 36415; 80053; 85025

== ENCOUNTER → 2022-11-30 | Outpatient (CLI) | payer OTHER, SELFPAY ==
[2022-11-30 17:58] LABS: Absolute Lymphocyte Count 2.21 X10^3/uL (0.83-4.51); Absolute Neutrophil Count 4.1 X10^3/uL (2.0-7.7); Basophil# 0.05 X10^3/uL; Basophil% 0.7 % (0-1); Eosinophil# 0.14 X10^3/uL; Eosinophils% 1.9 % (0-5); Hematocrit 40.6 % (37-47); Hemoglobin 13.2 g/dL (12.0-15.0); Lymphocyte # 2.21 X10^3/ul (0.83-4.51); Lymphocyte % 30.6 % (19-41); Mean Corp Hgb Conc 32.5 g/dL (32-36); Mean Corpuscular Hgb 30.7 pg (27.0-32.0); Mean Corpuscular Volume 94.4 fL (81-99); Mean Platelet Vol. 11.3 fl (6.2-12.0); Monocyte# 0.67 X10^3/uL; Monocyte% 9.3 % (0-10); NRBC Flagged by Analyzer 0 % (0-5); Neutrophil # 4.14 X10^3/uL (2.7-7.7); Neutrophil % 57.4 % (47-70); Platelet Count 156 K/mm3 (150-450); RBC Distribution Width CV 13.5 % (11.6-14.6); RBC Distribution Width SD 46.5 fl (35.1-43.9); White Blood Count 7.2 K/mm3 (4.4-11.0)
[2022-11-30 18:39] LABS: ALB/GLOB Ratio 1.1 RATIO (0.9-2.4); AST(SGOT) 26 U/L (15-37); Alanine Aminotransfer ALT/SGPT 31 U/L (13-56); Albumin, Serum 3.7 g/dL (3.2-5.0); Alkaline Phosphatase 67 U/L (45-117); Anion Gap 5 (5-15); BUN 23 mg/dL (7-18); BUN/Creat Ratio 21.9 RATIO (10-20); Calcium,Total 9.2 mg/dL (8.5-10.1); Chloride 109 mmol/L (98-107); Creatinine, Serum 1.05 mg/dL (0.55-1.02); EST Glomerular Filtration Rate 56 mL/min (>60); Est Glom Filt Rate - Afr Amer 67 mL/min (>60); Globulin 3.4 g/dL (2.2-4.2); Glucose 103 mg/dL (74-106); Potassium 3.8 mmol/L (3.5-5.1); Protein, Total 7.1 g/dL (6.4-8.2); Sodium Level 140 mmol/L (136-145)
== END | disposition home or self-care (01) ==
LOC: MTLAB 15:49
PROVIDERS: PCP Internal Medicine; Referring Provider Internal Medicine Rheumatology; Visit Provider Internal Medicine Rheumatology
DX: L40.59 Other psoriatic arthropathy (principal); D68.51 Activated protein C resistance; Z79.899 Other long term (current) drug therapy; L40.8 Other psoriasis; M72.0 Palmar fascial fibromatosis [Dupuytren]; I49.9 Cardiac arrhythmia, unspecified; H40.9 Unspecified glaucoma; M81.0 Age-related osteoporosis without current pathological fracture
CPT/HCPCS: 36415; 80053; 85025

== ENCOUNTER → 2022-12-01 | Outpatient (CLI) | payer OTHER, SELFPAY ==
--- NOTE | 2022-12-01 07:55 | ECHOD_ITS ---
Reason For Study: MURMUR Procedure This was a 2D Doppler, Color Flow transthoracic echocardiogram. Exam performed in department. Left Ventricle Normal LV size. Left ventricular systolic function is normal. The estimated ejection fraction is 60 %. Stage 1 diastolic dysfunction. No regional wall motion abnormalities noted. Right Ventricle Normal RV size. ICD or pacer leads identified within the right ventricle. Normal systolic function. Atria Normal left atrium. Normal right atrium. Mitral Valve Normal mitral valve. Tricuspid Valve Normal tricuspid valve. Mild (1+) tricuspid valve insufficiency. Pulmonary artery systolic pressure is 35 mmHg. Aortic Valve Trisinus/trileaflet aortic valve. Great Vessels Normal aortic root. The pulmonary artery is normal size. Normal inferior vena cava. Pericardium/Pleural No pericardial effusion. MMode/2D Measurements & Calculations LVIDd: 4.9 cm IVSd: 0.51 cm LAV(MOD-bp): 48.3 ml LVIDs: 4.1 cm LVPWd: 0.69 cm LAV(MOD-bp) Indexed: 28.7 ml/m2 RVDd: 2.5 cm FS: 15.7 % LAV(MOD-sp2): 55.8 ml LAV(MOD-sp4): 39.6 ml LVAd ap4: 26.7 cm2 SV(MOD-sp4): 40.2 ml SV(sp4-el): 43.0 ml LVLd ap4: 7.4 cm EDV(MOD-sp4): 79.0 ml EDV(sp4-el): 81.8 ml LVAs ap4: 17.8 cm2 LVLs ap4: 6.9 cm ESV(MOD-sp4): 38.7 ml ESV(sp4-el): 38.9 ml EF(MOD-sp4): 50.9 % EF(sp4-el): 52.5 % LA A4 area: 16.7 cm2 RA A4 area: 12.0 cm2 Doppler Measurements & Calculations MV E max isiah: 81.9 cm/sec MV V2 max: 106.7 cm/sec Ao V2 max: 222.0 cm/sec MV A max isiah: 105.5 cm/sec MV max P.6 mmHg Ao max P.8 mmHg MV E/A: 0.78 MV V2 mean: 70.7 cm/sec Ao V2 mean: 170.6 cm/sec MV mean P.3 mmHg Ao mean P.7 mmHg MV V2 VTI: 37.9 cm Ao V2 VTI: 56.7 cm AV (velocity ratio): 0.48 LV V1 max: 120.1 cm/sec TR max isiah: 281.4 cm/sec LV V1 max P.8 mmHg TR max P.7 mmHg LV V1 mean P.5 mmHg LV V1 mean: 87.1 cm/sec LV V1 VTI: 27.5 cm ECHO/Echo Complete Interpretation Summary Normal LV size. Left ventricular systolic function is normal. The estimated ejection fraction is 60 %. Mild (1+) tricuspid valve insufficiency. Stage 1 diastolic dysfunction. Ordering Physician: Devin Young Referring Physician: Devin Young Performed By: Widder, Angela, RCS
== END | disposition home or self-care (01) ==
LOC: CVS 07:54
PROVIDERS: PCP Internal Medicine; Referring Provider Internal Medicine; Visit Provider Internal Medicine
DX: R01.1 Cardiac murmur, unspecified (principal)
CPT/HCPCS: 93306

== ENCOUNTER → 2023-02-18 | Outpatient (CLI) | payer OTHER, SELFPAY ==
[2023-02-18 15:16] LABS: Absolute Lymphocyte Count 2.31 X10^3/uL (0.83-4.51); Absolute Neutrophil Count 3.7 X10^3/uL (2.0-7.7); Basophil# 0.05 X10^3/uL; Basophil% 0.7 % (0-1); Eosinophil# 0.08 X10^3/uL; Eosinophils% 1.2 % (0-5); Hematocrit 41.3 % (37-47); Hemoglobin 12.8 g/dL (12.0-15.0); Lymphocyte # 2.31 X10^3/ul (0.83-4.51); Mean Corpuscular Volume 96.9 fL (81-99); Mean Platelet Vol. 10.9 fl (6.2-12.0); Monocyte# 0.62 X10^3/uL; Monocyte% 9.1 % (0-10); NRBC Flagged by Analyzer 0 % (0-5); Neutrophil # 3.71 X10^3/uL (2.7-7.7); Neutrophil % 54.7 % (47-70); Platelet Count 191 K/mm3 (150-450); RBC Distribution Width CV 14.1 % (11.6-14.6); RBC Distribution Width SD 49.7 fl (35.1-43.9); Red Blood Count 4.26 M/mm3 (4.2-5.4); White Blood Count 6.8 K/mm3 (4.4-11.0)
[2023-02-18 15:52] LABS: AST(SGOT) 19 U/L (15-37); Alanine Aminotransfer ALT/SGPT 31 U/L (13-56); Albumin, Serum 3.7 g/dL (3.2-5.0); Alkaline Phosphatase 67 U/L (45-117); Anion Gap 5 (5-15); BUN 24 mg/dL (7-18); BUN/Creat Ratio 24.5 RATIO (10-20); Calcium,Total 9.4 mg/dL (8.5-10.1); Chloride 109 mmol/L (98-107); Creatinine, Serum 0.98 mg/dL (0.55-1.02); EST Glomerular Filtration Rate 60 mL/min (>60); Est Glom Filt Rate - Afr Amer 73 mL/min (>60); Globulin 3.6 g/dL (2.2-4.2); Glucose 99 mg/dL (74-106); Potassium 3.9 mmol/L (3.5-5.1); Protein, Total 7.3 g/dL (6.4-8.2); Sodium Level 140 mmol/L (136-145)
== END | disposition home or self-care (01) ==
LOC: MTLAB 13:21
PROVIDERS: PCP Internal Medicine; Referring Provider Internal Medicine Rheumatology; Visit Provider Internal Medicine Rheumatology
DX: L40.59 Other psoriatic arthropathy (principal); D68.51 Activated protein C resistance; Z79.899 Other long term (current) drug therapy; L40.8 Other psoriasis; M72.0 Palmar fascial fibromatosis [Dupuytren]; I49.9 Cardiac arrhythmia, unspecified; H40.9 Unspecified glaucoma; M81.0 Age-related osteoporosis without current pathological fracture
CPT/HCPCS: 36415; 80053; 85025

== ENCOUNTER → 2023-05-25 | Outpatient (CLI) | payer OTHER, SELFPAY ==
--- OUTSIDE RECORDS SUMMARY | 2023-05-25 10:37 | XMS RPT_ITS | CCD ---
Author Name Unknown Address [id number] [place] [address] Organization [facility] Care Team Providers Care Juvenile Counselor Name Role Phone Janice MARRUFO, Lauren Garcia Unavailable [phone] SUSIE Carlos, aTna Hernandes Unavailable Unavailable SUSIE Carlos, Tana Hernandes Unavailable Unavailable SUSIE Young, Korin Hernandes Unavailable Unavailabigail Young RN, Korin Hernandes Unavailable Unavailabigail Biswas MD, Barrett S Unavailable SUSIE Carlos, Tana Hernandes Unavailable Unavailable José Miguel INWEAVER, Zo S Unavailable [phone] SUSIE Carlos, Tana Hernandes Unavailable Unavailable SUSIE Young, Korin Hernandes Unavailable Unavailabigail Carlos RN, Tana Hernandes Unavailable Unavailable Lauren Camacho MD Unavailable [phone] MD True, Barrett S Unavailable SUSIE Young, Korin Hernandes Unavailable Unavailabigail Young RN, Korin Hernandes Unavailable UnavailGRACIA Cole Attending Unavailable GRACIA PATEL Primary Care Unavailable GRACIA PATEL Admitting Unavailable Medications Completed/Discontinued Medications Medication Drug Class(es) Dates Sig (Normalized) Sig (Original) aspirin 81 mg oral tablet (20 sources) Platelet Aggregation Inhibitor, Nonsteroidal Anti-inflammatory Drug Start: 05-01-2014 take 1 tablet by mouth once daily ASPIRIN 81 MG TABS One tablet by mouth daily ASPIRIN [id number] Barrett Biswas MD Problems Active Problems Problem Classification Problem Date Documented Da te Episodic/Chronic Cardiac dysrhythmias (19 sources) Atrial fibrillation; Translations: [Paroxysmal atrial fibrillation] Onset: 08-12-2010 08-12-2010 Chronic Conduction disorders (20 sources) Cardiac pacemaker in situ; 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] Onset: 08-12-2010 08-12-2010 Chronic Menopausal disorders (4 sources) Atrophic vaginitis; Translations: [Postmenopausal atrophic vaginitis] Onset: 02-09-2017 02-09-2017 Chronic Past or Other Problems Problem Classification Problem Date Documented Da te Episodic/Chronic Cardiac dysrhythmias (19 sources) Palpitations; Translations: [Palpitations] Onset: 1 08-12-2010 Episodic Nonspecific chest pain (19 sources) Chest pain, unspecified; Translations: [Chest pain, unspecified] Onset: 1 08-12-2010 Episodic Other circulatory disease (7 sources) Carotid bruit; Translations: [Other specified symptoms and signs involving the circulatory and respiratory systems] Onset: 1 08-12-2010 Episodic Other female genital disorders (8 sources) Lesion of vulva; Translations: [Other specified noninflammatory disorders of vulva and perineum] Onset: 7 01-20-2017 Episodic Other screening for suspected conditions (not mental disorders or infectious disease) (20 sources) Electrocardiogram abnormal; Translations: [Carotid bruit] Onset: 1 09-22-2016 Episodic Phlebitis; thrombophlebitis and thromboembolism (19 sources) History of thrombophlebitis; Translations: [Personal history of thrombophlebitis] Onset: 1 08-12-2010 Episodic Residual codes; unclassified (19 sources) Family history of stroke; Translations: [Family history of stroke] 05-01-2014 Episodic Results Test Name Value Interpretation Reference Range Facil ity Vital Signs Date Time Vital Sign Value Performing Clinician Maria Luisa wilson 03-09-2017 14:20-0400 BMI (Body Mass Index) 22.14 kg/m2 Zo Valdez NP [facility] 03-09-2017 14:20-0400 Body Temperature 97.1 [degF] Zo Valdez NP [facility] 03-09-2017 14:20-0400 Body Temperature 97.11 [degF] Zo Valdez NP [facility] 03-09-2017 14:20-0400 BP Diastolic 76 mm[Hg] Zo Gallion INWEAVER [facility] 03-09-2017 14:20-0400 BP Systolic 126 mm[Hg] Zo Gallion INWEAVER [facility] 03-09-2017 14:20-0400 Height 170.18 cm Zo José Miguel INWEAVER [facility] 03-09-2017 14:20-0400 Pulse (Heart Rate) 75 /min Zo José Miguel INWEAVER [facility] 03-09-2017 14:20-0400 Respiratory Rate 16 /min Zo Gallion INWEAVER [facility] 03-09-2017 14:20-0400 Weight 64.14 kg Zo Gallion INWEAVER [facility] 02-09-2017 14:19-0400 BMI (Body Mass Index) 21.71 kg/m2 Zo José Miguel INWEAVER [facility] 02-09-2017 14:19-0400 Body Temperature 98.2 [degF] Zo José Miguel INWEAVER [facility] 02-09-2017 14:19-0400 BP Diastolic 72 mm[Hg] Zo José Miguel INWEAVER [facility] 02-09-2017 14:19-0400 BP Systolic 127 mm[Hg] Zo Gallion INWEAVER [facility] 02-09-2017 14:19-0400 Height 170.18 cm Zo Gallion INWEAVER [facility] 02-09-2017 14:19-0400 Pulse (Heart Rate) 88 /min Zo Gallion INWEAVER [facility] 02-09-2017 14:19-0400 Weight 62.87 kg Zo Gallion INWEAVER [facility] 01-20-2017 10:49-0400 BMI (Body Mass Index) 21.8 kg/m2 Lauren Camacho MD [facility] 01-20-2017 10:49-0400 Body Temperature 97.5 [degF] Lauren Camacho MD [facility] 01-20-2017 10:49-0400 BP Diastolic 72 mm[Hg] Lauren Camacho MD [facility] 01-20-2017 10:49-0400 BP Systolic 160 mm[Hg] Lauren Camacho MD [facility] 01-20-2017 10:49-0400 Height 170.18 cm Lauren Camacho MD [facility] 01-20-2017 10:49-0400 Pulse (Heart Rate) 73 /min Lauren Camacho MD [facility] 01-20-2017 10:49-0400 Respiratory Rate 16 /min Lauren Camacho MD [facility] 01-20-2017 10:49-0400 Weight 63.14 kg Lauren Camacho MD [facility] 10-11-2016 09:36-0400 Body surface area Derived from formula 76.60 mL/min SUSIE [facility] Work Phone: 09-22-2016 14:33-0400 BMI (Body Mass Index) 20.99 kg/m2 MD [facility] Work Phone: 09-22-2016 14:33-0400 Body weight 60.78 kg SUSIE [facility] Work Phone: 09-22-2016 14:33-0400 BP Diastolic 70 mm[Hg] MD [facility] Work Phone: 09-22-2016 14:33-0400 BP Systolic 130 mm[Hg] MD [facility] Work Phone: 09-22-2016 14:33-0400 Height 170.18 cm MD [facility] Work Phone: 09-22-2016 14:33-0400 Pulse (Heart Rate) 76 /min MD [facility] Work Phone: 09-22-2016 14:33-0400 Respiratory Rate 20 /min MD [facility] Work Phone: 09-22-2016 14:33-0400 Weight 60.78 kg MD [facility] Work Phone: 09-22-2016 14:31-0400 Heart rate 76 /min MD [facility] Work Phone: 04-15-2016 13:06-0500 BMI (Body Mass Index) 21.55 kg/m2 Barrett Biswas MD [facility] Work Phone: 04-15-2016 13:06-0500 Body weight 62.42 kg MD [facility] Work Phone: 04-15-2016 13:06-0500 BSA (Body Surface Area) 1.73 m2 MD [facility] Work Phone: 04-15-2016 13:06-0500 Pulse (Heart Rate) 84 /min MD [facility] Work Phone: 04-15-2016 13:06-0500 Respiratory Rate 12 /min MD [facility] Work Phone: 05-01-2014 09:51-0500 BP Diastolic 70 mm[Hg] MD [facility] Work Phone: 05-01-2014 09:51-0500 BP Systolic 120 mm[Hg] MD [facility] Work Phone: 03-16-2012 14:48-0500 Heart rate 413 ms MD [facility] Work Phone: 03-16-2012 14:24-0500 Height 170.18 cm MD [facility] Work Phone: Encounters Encounter Date Encounter Type Care Provider Facility Start: 07-22-2020 End: 07-22-2020 Patient encounter procedure GRACIA PATEL [facility] Procedures Date Procedure Procedure Detail Performing Clinician Start: 02-21-2017 End: 02-22-2017 Interrogation eval remote 90 d /2/surgical instrument technician lead pm Karolina Blanc PA-C Work Phone: Start: 01-20-2017 End: 01-21-2017 Herpes simplex virus 1+2 IgG Ab [Units/volume] in Serum Lauren Camacho MD Work Phone: Start: 01-20-2017 End: 01-21-2017 Herpes simplex virus 1+2 IgG Ab [Units/volume] in Serum Lauren Camacho MD Work Phone: Start: 11-15-2016 End: 11-15-2016 Interrogation eval remote 90 d 1/2/surgical instrument technician lead pm Karolina Blanc PA-C Work Phone: Start: 11-15-2016 End: 11-15-2016 Pm device interrogate remote Karolina Blanc PA-C Work Phone: Start: 10-26-2016 End: 10-27-2016 Program eval implantable in persn dual ld pacer Barrett Biswas MD Start: 10-26-2016 End: 10-27-2016 Pm device progr eval, dual Barrett Biswas MD Start: 10-08-2016 End: 10-11-2016 *ROJAS Biswas MD Start: 10-08-2016 End: 10-11-2016 *ROJAS Biswas MD Start: 09-22-2016 End: 09-22-2016 Documentation of current medications Korin Young, SUSIE Start: 09-22-2016 End: 09-22-2016 *ROJAS Biswas MD Start: 09-22-2016 End: 09-22-2016 CBC W Auto Differential panel - Blood Barrett Biswas MD Start: 09-22-2016 End: 12-20-2016 LOAD TALLIER Barrett Biswas MD Start: 09-22-2016 End: 09-22-2016 Ecg routine ecg w/least 12 lds w/i&r Barrett Biswas MD Start: 09-22-2016 End: 12-20-2016 Follow Up Appt 3 months Greta Mcgraw Start: 09-22-2016 End: 09-22-2016 *BMP Barrett Biswas MD Start: 09-22-2016 End: 09-22-2016 CBC W Auto Differential panel - Blood Barrett Biswas MD Start: 09-22-2016 End: 12-20-2016 LOAD TALLIER Barrett Biswas MD Start: 09-22-2016 End: 09-22-2016 Electrocardiogram, complete Barrett Biswas MD Start: 09-22-2016 End: 12-20-2016 Follow Up Appt 3 months Greta Mcgraw Start: 04-26-2016 End: 09-22-2016 Follow Up Appt 6 months Karolina garza PA-C Work Phone: Start: 04-26-2016 End: 04-26-2016 Nurse, Teaching, Wound Check (no charge) Karolina Blanc PA-C Work Phone: Start: 04-26-2016 End: 09-22-2016 Pacer Clinic Karolina Blanc PA-C Work Phone: Start: 04-26-2016 End: 09-22-2016 Follow Up Appt 6 months Karolina garza PA-C Work Phone: Start: 04-26-2016 End: 04-26-2016 Nurse, Teaching, Wound Check (no charge) Karolina Blanc PA-C Work Phone: Start: 04-26-2016 End: 09-22-2016 Pacer Clinic Karolina Blanc PA-C Work Phone: Start: 04-15-2016 End: 04-15-2016 Urinalysis Barrett Biswas MD Start: 04-15-2016 End: 09-22-2016 LIV Biswas MD Start: 04-15-2016 End: 09-22-2016 Follow Up Appt 1 year Barrett Biswas MD Start: 04-15-2016 End: 04-15-2016 Nurse, Teaching, Wound Check (no charge) Barrett Biswas MD Start: 04-15-2016 End: 04-15-2016 Documentation of current medications Barrett Biswas MD Start: 04-15-2016 End: 09-22-2016 LIV Biswas MD Start: 04-15-2016 End: 09-22-2016 Follow Up Appt 1 year Barrett Biswas MD Start: 04-15-2016 End: 04-15-2016 Nurse, Teaching, Wound Check (no charge) Barrett Biswas MD Start: 04-14-2016 End: 04-16-2016 *BMP Barrett Biswas MD Start: 04-14-2016 End: 04-16-2016 *UA - Urinalysis w/o Micro Barrett Biswas MD Start: 04-14-2016 End: 04-16-2016 CBC W Auto Differential panel - Blood Barrett Biswas MD Start: 04-14-2016 End: 04-16-2016 Chest x-ray Barrett Biswas MD Start: 04-14-2016 End: 04-23-2016 Ecg routine ecg w/least 12 lds w/i&r Barrett Biswas MD Start: 04-14-2016 End: 04-16-2016 INR in Platelet poor plasma by Coagulation assay Barrett Biswas MD Start: 04-14-2016 End: 04-23-2016 Pacemaker Generator Change Barrett Biswas MD Start: 04-14-2016 End: 04-14-2016 Program eval implantable in persn dual ld pacer Barrett Biswas MD Start: 04-14-2016 End: 04-16-2016 *BMP Barrett Biswas MD Start: 04-14-2016 End: 04-16-2016 *UA - Urinalysis w/o Micro Barrett Biswas MD Start: 04-14-2016 End: 04-16-2016 CBC W Auto Differential panel - Blood Barrett Biswas MD Start: 04-14-2016 End: 04-16-2016 Chest x-ray Barrett Biswas MD Start: 04-14-2016 End: 04-16-2016 Coagulation factor induced.INR assay in platelet poor plasma Barrett Biswas MD Start: 04-14-2016 End: 04-23-2016 Electrocardiogram, complete Barrett Biswas MD Start: 04-14-2016 End: 04-23-2016 Pacemaker Generator Change Barrett Biswas MD Start: 04-14-2016 End: 04-14-2016 Pm device progr eval, dual Barrett Biswas MD Start: 12-26-2015 End: 04-23-2016 Follow Up Appt 3 months Greta Mcgraw Start: 12-26-2015 End: 04-23-2016 Pacer Clinic Barrett Biswas MD Start: 12-26-2015 End: 12-26-2015 Program eval implantable in persn dual ld pacer Barrett Biswas MD Start: 12-26-2015 End: 04-23-2016 Follow Up Appt 3 months Greta Mcgraw Start: 12-26-2015 End: 04-23-2016 Pacer Clinic Barrett Biswas MD Start: 12-26-2015 End: 12-26-2015 Pm device progr eval, dual Barrett Biswas MD Start: 07-09-2015 End: 04-23-2016 Follow Up Appt 6 months Greta Mcgraw Start: 07-09-2015 End: 04-23-2016 Pacer Clinic Barrett Biswas MD Start: 07-09-2015 End: 07-09-2015 Program eval implantable in persn dual ld pacer Barrett Biswas MD Start: 07-09-2015 End: 04-23-2016 Follow Up Appt 6 months Greta Mcgraw Start: 07-09-2015 End: 04-23-2016 Pacer Clinic Barrett Biswas MD Start: 07-09-2015 End: 07-09-2015 Pm device progr eval, dual Barrett Biswas MD Start: 04-02-2015 End: 04-23-2016 Follow Up Appt 3 months Greta Mcgraw Start: 04-02-2015 End: 04-23-2016 Pacer Clinic Barrett Biswas MD Start: 04-02-2015 End: 04-02-2015 Program eval implantable in persn dual ld pacer Barrett Biswas MD Start: 04-02-2015 End: 04-23-2016 Follow Up Appt 3 months Greta Mcgraw Start: 04-02-2015 End: 04-23-2016 Pacer Clinic Barrett Biswas MD Start: 04-02-2015 End: 04-02-2015 Pm device progr eval, dual Barrett Biswas MD Start: 11-14-2014 End: 04-23-2016 Follow Up Appt 3 months Greta Mcgraw Start: 11-14-2014 End: 04-23-2016 Pacer Clinic Barrett Biswas MD Start: 11-14-2014 End: 11-14-2014 Program eval implantable in persn dual ld asifr Barrett Biswas MD Start: 11-14-2014 End: 04-23-2016 Follow Up Appt 3 months Greta Mcgraw Start: 11-14-2014 End: 04-23-2016 Pacer Clinic Barrett Biswas MD Start: 11-14-2014 End: 11-14-2014 Pm device progr eval, dual Barrett Biswas MD Start: 08-15-2014 End: 04-23-2016 Follow Up Appt 6 months Greta Mcgraw Start: 08-15-2014 End: 04-23-2016 Pacer Clinic Barrett Biswas MD Start: 08-15-2014 End: 08-15-2014 Program eval implantable in persn dual ld pacer Barrett Biswas MD Start: 08-15-2014 End: 04-23-2016 Follow Up Appt 6 months Greta Mcgraw Start: 08-15-2014 End: 04-23-2016 Pacer Clinic Barrett Biswas MD Start: 08-15-2014 End: 08-15-2014 Pm device progr eval, dual Barrett Biswas MD Start: 05-01-2014 End: 05-06-2014 LIV Biswas MD Start: 05-01-2014 End: 04-23-2016 Follow Up Appt 3 months Greta Mcgraw Start: 05-01-2014 End: 05-06-2014 Follow Up Appt 6 months Greta Mcgraw Start: 05-01-2014 End: 04-23-2016 Pacer Clinic Barrett Biswas MD Start: 05-01-2014 End: 05-01-2014 Program eval implantable in persn dual ld pacer Barrett Biswas MD Start: 05-01-2014 End: 05-06-2014 LIV Biswas MD Start: 05-01-2014 End: 04-23-2016 Follow Up Appt 3 months Greta Mcgraw Start: 05-01-2014 End: 05-06-2014 Follow Up Appt 6 months Greta Mcgraw Start: 05-01-2014 End: 04-23-2016 Pacer Clinic Barrett Biswas MD Start: 05-01-2014 End: 05-01-2014 Pm device progr valal, dual Barrett Biswas MD Start: 04-15-2014 End: 04-23-2016 Follow Up Appt 3 months Karolina garza PA-C Work Phone: Start: 04-15-2014 End: 04-23-2016 Pacer Clinic Karolina Blanc PA-C Work Phone: Start: 04-15-2014 End: 04-15-2014 Program eval implantable in persn dual ld pacer Karolina Blanc PA-C Work Phone: Start: 04-15-2014 End: 04-23-2016 Follow Up Appt 3 months Karolina garza PA-C Work Phone: Start: 04-15-2014 End: 04-23-2016 Pacer Clinic Karolina Blanc PA-C Work Phone: Start: 04-15-2014 End: 04-15-2014 Pm device progr eval, dual Karolina Sullivan PA-C Work Phone: Start: 12-28-2013 End: 04-23-2016 Follow Up Appt 3 months Greta Mcgraw Start: 12-28-2013 End: 04-23-2016 Pacer Clinic Barrett Biswas MD Start: 12-28-2013 End: 12-28-2013 Program eval implantable in persn dual ld pacer Barrett Biswas MD Start: 12-28-2013 End: 04-23-2016 Follow Up Appt 3 months Greta Mcgraw Start: 12-28-2013 End: 04-23-2016 Pacer Clinic Barrett Biswas MD Start: 12-28-2013 End: 12-28-2013 Pm device progr eval, dual Barrett Biswas MD Start: 08-15-2013 End: 12-28-2013 Follow Up Appt 3 months Greta Mcgraw Start: 08-15-2013 End: 12-28-2013 Pacer Clinic Barrett Biswas MD Start: 08-15-2013 End: 08-15-2013 Program eval implantable in persn dual ld pacer Barrett Biswas MD Start: 08-15-2013 End: 12-28-2013 Follow Up Appt 3 months Greta Mcgraw Start: 08-15-2013 End: 12-28-2013 Pacer Clinic Barrett Biswas MD Start: 08-15-2013 End: 08-15-2013 Pm device progr eval, dual Barrett Biswas MD Start: 05-15-2013 End: 05-15-2013 Program eval implantable in persn dual ld pacer Barrett Biswas MD Start: 05-15-2013 End: 05-15-2013 Pm device progr eval, dual Barrett Biswas MD Start: 02-01-2013 End: 12-28-2013 Follow Up Appt 3 months Rsos Chew MD Start: 02-01-2013 End: 12-28-2013 Pacer Clinic Ross Chew MD Start: 02-01-2013 End: 02-01-2013 Program eval implantable in persn dual ld pacer Ross Chew MD Start: 02-01-2013 End: 12-28-2013 Follow Up Appt 3 months Ross Chew MD Start: 02-01-2013 End: 12-28-2013 Pacer Clinic Ross Chew MD Start: 02-01-2013 End: 02-01-2013 Pm device progr eval, dual Ross crawford MD Start: 10-23-2012 End: 12-28-2013 Follow Up Appt 3 months Greta Mcgraw Start: 10-23-2012 End: 12-28-2013 Pacer Clinic Barrett Biswas MD Start: 10-23-2012 End: 10-23-2012 Program eval implantable in persn dual ld pacer Barrett Biswas MD Start: 10-23-2012 End: 12-28-2013 Follow Up Appt 3 months Greta Mcgraw Start: 10-23-2012 End: 12-28-2013 Pacer Clinic Barrett Biswas MD Start: 10-23-2012 End: 10-23-2012 Pm device progr eval, dual Barrett Biswas MD Start: 07-19-2012 End: 12-28-2013 Follow Up Appt 3 months Greta Mcgraw Start: 07-19-2012 End: 12-28-2013 Pacer Clinic Barrett Biswas MD Start: 07-19-2012 End: 07-19-2012 Program eval implantable in persn dual ld pacer Barrett Biswas MD Start: 07-19-2012 End: 12-28-2013 Follow Up Appt 3 months Greta Mcgraw Start: 07-19-2012 End: 12-28-2013 Pacer Clinic Barrett Biswas MD Start: 07-19-2012 End: 07-19-2012 Pm device progr eval, dual Barrett Biswas MD Start: 03-16-2012 End: 12-28-2013 Ecg routine ecg w/least 12 lds w/i&r Barrett Biswas MD Start: 03-16-2012 End: 03-16-2012 Follow Up Appt 1 year Barrett Biswas MD Start: 03-16-2012 End: 12-28-2013 Electrocardiogram, complete Barrett iBswas MD Start: 03-16-2012 End: 03-16-2012 Follow Up Appt 1 year Barrett Biswas MD Plan of Treatment Date Care Activity Detail Author Start: 05-31-2017 End: 05-31-2017 Appointment Appointment [facility] Work Phone: Start: 03-09-2017 End: 03-09-2017 Appointment Appointment [facility] Start: 02-21-2017 End: 02-21-2017 Appointment Appointment [facility] Work Phone: Start: 02-21-2017 End: 02-22-2017 Follow Up Appt 3 months Follow Up Appt 3 months [facility] Work Phone: Start: 02-21-2017 End: 02-22-2017 [facility] Clinic [facility] Work Phone: Start: 02-09-2017 End: 02-09-2017 Appointment Appointment [facility] Start: 01-20-2017 End: 01-20-2017 *HSVS HSV Culture Screen [id number] *[facility]VS HSV Culture Screen [id number] [facility] Start: 01-20-2017 End: 01-21-2017 Herpes simplex virus 1+2 IgG Ab [Units/volume] in Serum *HS12G Herpes Simplex Antibody [facility] Start: 01-20-2017 End: 01-20-2017 Appointment Appointment [facility] Start: 01-20-2017 End: 01-20-2017 *HSVS HSV Culture Screen [id number] *[facility]VS HSV Culture Screen [id number] [facility] Start: 01-20-2017 End: 01-21-2017 Herpes simplex virus 1+2 IgG Ab [Units/volume] in Serum *HS12G Herpes Simplex Antibody [facility] Start: 12-23-2016 End: 12-23-2016 Appointment Appointment [facility] Work Phone: Start: 12-23-2016 End: 12-23-2016 Appointment Appointment [facility] Work Phone: Start: 11-15-2016 End: 11-15-2016 Follow Up Appt 3 months Follow Up Appt 3 months [facility] Start: 11-15-2016 End: 11-15-2016 Pacer Clinic [facility] Start: 11-15-2016 End: 11-15-2016 Appointment Appointment [facility] Work Phone: Start: 11-15-2016 End: 11-15-2016 Follow Up Appt 3 months Follow Up Appt 3 months [facility] Work Phone: Start: 11-15-2016 End: 11-15-2016 Pacer Clinic [facility] Work Phone: Start: 10-25-2016 End: 10-25-2016 Appointment Appointment [facility] Work Phone: Start: 10-25-2016 End: 10-25-2016 Appointment Appointment [facility] Work Phone: Start: 10-08-2016 End: 10-08-2016 *BMP *BMP [facility] Start: 10-08-2016 End: 10-08-2016 *BMP *BMP [facility] Work Phone: Start: 09-22-2016 End: 09-22-2016 *BMP *BMP [facility] Start: 09-22-2016 End: 09-22-2016 Appointment Appointment [facility] Work Phone: Start: 09-22-2016 End: 09-22-2016 CBC W Auto Differential panel - Blood *CBC without Diff [facility] Start: 09-22-2016 End: 12-20-2016 LOAD TALLIER LOAD TALLIER [facility] Start: 09-22-2016 End: 09-22-2016 Ecg routine ecg w/least 12 lds w/i&r EKG (In office) [facility] Start: 09-22-2016 End: 12-20-2016 Follow Up Appt 3 months Follow Up Appt 3 months [facility] Start: 09-22-2016 End: 10-08-2016 Left Heart Cath Left Heart Cath [facility] Start: 09-22-2016 End: 09-22-2016 *BMP *BMP [facility] Work Phone: Start: 09-22-2016 End: 09-22-2016 CBC W Auto Differential panel - Blood *CBC without Diff [facility] Work Phone: Start: 09-22-2016 End: 12-20-2016 LOAD TALLIER LOAD TALLIER [facility] Work Phone: Start: 09-22-2016 End: 09-22-2016 Electrocardiogram, complete EKG (In office) [facility] Work Phone: Start: 09-22-2016 End: 12-20-2016 Follow Up Appt 3 months Follow Up Appt 3 months [facility] Work Phone: Start: 09-22-2016 End: 10-08-2016 Left Heart Cath Left Heart Cath [facility] Work Phone: Start: 04-26-2016 End: 09-22-2016 Follow Up Appt 6 months Follow Up Appt 6 months [facility] Start: 04-26-2016 End: 09-22-2016 [facility] Start: 04-26-2016 End: 09-22-2016 Follow Up Appt 6 months Follow Up Appt 6 months [facility] Work Phone: Start: 04-26-2016 End: 09-22-2016 [facility] Work Phone: Start: 04-15-2016 End: 09-22-2016 LOAD TALLIER LOAD TALLIER [facility] Start: 04-15-2016 End: 09-22-2016 Follow Up Appt 1 year Follow Up Appt 1 year [facility] Start: 04-15-2016 End: 09-22-2016 LOAD TALLIER LOAD TALLIER [facility] Work Phone: Start: 04-15-2016 End: 09-22-2016 Follow Up Appt 1 year Follow Up Appt 1 year [facility] Work Phone: Start: 04-14-2016 End: 04-16-2016 *BMP *BMP [facility] Start: 04-14-2016 End: 04-16-2016 *UA - Urinalysis w/o Micro *UA - Urinalysis w/o Micro [facility] Start: 04-14-2016 End: 04-16-2016 CBC W Auto Differential panel - Blood *CBC without Diff [facility] Start: 04-14-2016 End: 04-16-2016 Chest x-ray X-Ray, Chest, PA & Lateral [facility] Start: 04-14-2016 End: 04-23-2016 Ecg routine ecg w/least 12 lds w/i&r EKG (In office) [facility] Start: 04-14-2016 End: 04-16-2016 INR Coag RelTime (PPP) *PT/INR [facility] Start: 04-14-2016 End: 04-15-2016 Pacemaker Generator Change Pacemaker Generator Change [facility] Start: 04-14-2016 End: 04-16-2016 *BMP *BMP [facility] Work Phone: Start: 04-14-2016 End: 04-16-2016 *UA - Urinalysis w/o Micro *UA - Urinalysis w/o Micro [facility] Work Phone: Start: 04-14-2016 End: 04-16-2016 CBC W Auto Differential panel - Blood *CBC without Diff [facility] Work Phone: Start: 04-14-2016 End: 04-16-2016 Chest x-ray X-Ray, Chest, PA & Lateral [facility] Work Phone: Start: 04-14-2016 End: 04-16-2016 Coagulation factor induced.INR assay in platelet poor plasma *PT/INR [facility] Work Phone: Start: 04-14-2016 End: 04-23-2016 Electrocardiogram, complete EKG (In office) [facility] Work Phone: Start: 04-14-2016 End: 04-15-2016 Pacemaker Generator Change Pacemaker Generator Change [facility] Work Phone: Start: 12-26-2015 End: 04-23-2016 Follow Up Appt 3 months Follow Up Appt 3 months [facility] Start: 12-26-2015 End: 04-23-2016 [facility] Start: 12-26-2015 End: 04-23-2016 Follow Up Appt 3 months Follow Up Appt 3 months [facility] Work Phone: Start: 12-26-2015 End: 04-23-2016 [facility] Work Phone: Start: 07-09-2015 End: 04-23-2016 Follow Up Appt 6 months Follow Up Appt 6 months [facility] Start: 07-09-2015 End: 04-23-2016 [facility] Start: 07-09-2015 End: 04-23-2016 Follow Up Appt 6 months Follow Up Appt 6 months [facility] Work Phone: Start: 07-09-2015 End: 04-23-2016 [facility] Work Phone: Start: 04-02-2015 End: 04-23-2016 Follow Up Appt 3 months Follow Up Appt 3 months [facility] Start: 04-02-2015 End: 04-23-2016 [facility] Start: 04-02-2015 End: 04-23-2016 Follow Up Appt 3 months Follow Up Appt 3 months [facility] Work Phone: Start: 04-02-2015 End: 04-23-2016 [facility] Work Phone: Start: 11-14-2014 End: 04-23-2016 Follow Up Appt 3 months Follow Up Appt 3 months [facility] Start: 11-14-2014 End: 04-23-2016 [facility] Start: 11-14-2014 End: 04-23-2016 Follow Up Appt 3 months Follow Up Appt 3 months [facility] Work Phone: Start: 11-14-2014 End: 04-23-2016 [facility] Work Phone: Start: 08-15-2014 End: 04-23-2016 Follow Up Appt 6 months Follow Up Appt 6 months [facility] Start: 08-15-2014 End: 04-23-2016 [facility] Start: 08-15-2014 End: 04-23-2016 Follow Up Appt 6 months Follow Up Appt 6 months [facility] Work Phone: Start: 08-15-2014 End: 04-23-2016 [facility] Work Phone: Start: 05-01-2014 End: 05-06-2014 LOAD TALLIER LOAD TALLIER [facility] Start: 05-01-2014 End: 04-23-2016 Follow Up Appt 3 months Follow Up Appt 3 months [facility] Start: 05-01-2014 End: 05-06-2014 Follow Up Appt 6 months Follow Up Appt 6 months [facility] Start: 05-01-2014 End: 04-23-2016 [facility] Start: 05-01-2014 End: 05-06-2014 LOAD TALLIER LOAD TALLIER [facility] Work Phone: Start: 05-01-2014 End: 04-23-2016 Follow Up Appt 3 months Follow Up Appt 3 months [facility] Work Phone: Start: 05-01-2014 End: 05-06-2014 Follow Up Appt 6 months Follow Up Appt 6 months [facility] Work Phone: Start: 05-01-2014 End: 04-23-2016 [facility] Work Phone: Start: 04-15-2014 End: 04-23-2016 Follow Up Appt 3 months Follow Up Appt 3 months [facility] Start: 04-15-2014 End: 04-23-2016 [facility] Start: 04-15-2014 End: 04-23-2016 Follow Up Appt 3 months Follow Up Appt 3 months [facility] Work Phone: Start: 04-15-2014 End: 04-23-2016 [facility] Work Phone: Start: 12-28-2013 End: 04-23-2016 Follow Up Appt 3 months Follow Up Appt 3 months [facility] Start: 12-28-2013 End: 04-23-2016 [facility] Start: 12-28-2013 End: 04-23-2016 Follow Up Appt 3 months Follow Up Appt 3 months [facility] Work Phone: Start: 12-28-2013 End: 04-23-2016 [facility] Work Phone: Start: 08-15-2013 End: 12-28-2013 Follow Up Appt 3 months Follow Up Appt 3 months [facility] Start: 08-15-2013 End: 12-28-2013 [facility] Start: 08-15-2013 End: 12-28-2013 Follow Up Appt 3 months Follow Up Appt 3 months [facility] Work Phone: Start: 08-15-2013 End: 12-28-2013 [facility] Work Phone: Start: 02-01-2013 End: 12-28-2013 Follow Up Appt 3 months Follow Up Appt 3 months [facility] Start: 02-01-2013 End: 12-28-2013 [facility] Start: 02-01-2013 End: 12-28-2013 Follow Up Appt 3 months Follow Up Appt 3 months [facility] Work Phone: Start: 02-01-2013 End: 12-28-2013 [facility] Work Phone: Start: 10-23-2012 End: 12-28-2013 Follow Up Appt 3 months Follow Up Appt 3 months [facility] Start: 10-23-2012 End: 12-28-2013 [facility] Start: 10-23-2012 End: 12-28-2013 Follow Up Appt 3 months Follow Up Appt 3 months [facility] Work Phone: Start: 10-23-2012 End: 12-28-2013 [facility] Work Phone: Start: 07-19-2012 End: 12-28-2013 Follow Up Appt 3 months Follow Up Appt 3 months [facility] Start: 07-19-2012 End: 12-28-2013 [facility] Start: 07-19-2012 End: 12-28-2013 Follow Up Appt 3 months Follow Up Appt 3 months [facility] Work Phone: Start: 07-19-2012 End: 12-28-2013 [facility] Work Phone: Start: 03-16-2012 End: 12-28-2013 Ecg routine ecg w/least 12 lds w/i&r EKG (In office) [facility] Start: 03-16-2012 End: 03-16-2012 Follow Up Appt 1 year Follow Up Appt 1 year [facility] Start: 03-16-2012 End: 12-28-2013 Electrocardiogram, complete EKG (In office) [facility] Work Phone: Start: 03-16-2012 End: 03-16-2012 Follow Up Appt 1 year Follow Up Appt 1 year [facility] Work Phone: Payers Date Payer Category Payer Unknown [id number] Private Health Insurance [id number] Clinical Note 04-22-2021 Note Date & Type Note Facility 04-22-2021 Note Patient Outreach (ARIANE WHITNEY) RADHA SAWYER ([id number]) 1955 F Date Time Provider Department 04/22/21 BRENDEN CLAUDIO During your visit today, we recorded the following information about you: Brenden Van Shanon Population Health Navigator 04/22/2021 9:47 AM Signed POPULATION HEALTH NAVIGATION OUTREACH Action/FYI I spoke with patient and she is already with a pcp at [facility] No care everywhere Update pcp field Contact made with patient or family member? YES Pt identified by name and : YES Outreach Outcome/Action Spoke to patient or caregiver: PCP confirmed / updated Patient declined PCP field updated Reason for Outreach Attribution: Provider Off-boarding Payer: Payor: [employer] / Plan: [employer] CHOICE POS II / Product Type: POS / Care Gap Reviewed:: Reminder: Reminder note to check Health Maintenance for items below Health Maintenance items due: COVID-19 VACCINE(1) Never done SHINGRIX VACCINE(1 of 2) Never done MAMMOGRAM due on 08/12/2017 DEPRESSION SCREENING due on 02/15/2018 LIPID SCREEN due on 04/03/2019 ADVANCE DIRECTIVE DISCUSSION Never done PNEUMOVAX AGE 65 AND OVER WITH 5YR LOOKBACK(1) Never done INFLUENZA(1) due on 01/07/2021 Advanced Directives Completed: Have you ever planned for future healthcare decisions with a power of environmental attorney, living will, or advance directives? No. Please bring a copy to your next appointment or email to [email or web address] Referrals: N/A Message Sent to Practice: NO Navigation Signature: Brenden Claudio Population Health Navigator April 22, 2021 9:45 AM Allergies As of Date: 04/22/2021 (No Known Allergies) Date Reviewed: 03/20/2020 Reviewed by: Ramila ([facility]) HOSEA Murphy - Fully Assessed Reason for Visit: Population Health Navigation Outreach [[id number]] Cmt: offboarding Prescriptions as of 04/22/2021 - LATANOPROST OPHTHALMIC Use 1 Drop in eyes once daily. - leucovorin (LEUCOVORIN) 15 mg tablet Take 15 mg by mouth one time a week. - dicyclomine (BENTYL) 10 mg capsule Take 1 capsule by mouth three times daily as needed (bowel spasm). - ESTRACE 0.01 % (0.1 mg/gram) vaginal cream insert 1 gram vaginally 3 NIGHTS PER WEEK - folic acid 1 mg tablet Take 2 mg by mouth once daily. - methotrexate 2.5 mg tablet Take 2.5 mg by mouth one time only. Take 6 tablets weekly. - hydroxychloroquine (PLAQUENIL) 200 mg ORAL tablet Take 200 mg by mouth once daily. 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 Author Type: ? Type: Progress Notes Filed: 04/22/2021 9:47 AM Note Text: POPULATION HEALTH NAVIGATION OUTREACH Action/ I spoke with patient and she is already with a pcp at [facility] No care everywhere Update pcp field Contact made with patient or family member? YES Pt identified by name and : YES Outreach Outcome/Action Spoke to patient or caregiver: PCP confirmed / updated Patient declined PCP field updated Reason for Outreach Attribution: Provider Off-boarding Payer: Payor: [employer] / Plan: [employer] CHOICE POS II / Product Type: POS / Care Gap Reviewed:: Reminder: Reminder note to check Health Maintenance for items below Health Maintenance items due: COVID-19 VACCINE(1) Never done SHINGRIX VACCINE(1 of 2) Never done MAMMOGRAM due on 08/12/2017 DEPRESSION SCREENING due on 02/15/2018 LIPID SCREEN due on 04/03/2019 ADVANCE DIRECTIVE DISCUSSION Never done PNEUMOVAX AGE 65 AND OVER WITH 5YR LOOKBACK(1) Never done INFLUENZA(1) due on 01/07/2021 Advanced Directives Completed: Have you ever planned for future healthcare decisions with a power of environmental attorney, living will, or advance directives? No. Please bring a copy to your next appointment or email to Referrals: N/A Message Sent to Practice: NO Navigation Signature: Brenden Claudio Population Health Navigator April 22, 2021 9:45 AM [facility] Summary Purpose Family History No Family History Records FoundNo Family History Records Found Advance Directives No Advanced Directives Records FoundNo Advanced Directives Records Found Additional Source Comments INFORMATION SOURCE (unrecogn ized section and content) DATE CREATED AUTHOR AUTHOR'S ORGANIZ ATION 06/03/2021 [facility] FOR RECORDS PERTAINING TO PATIENTS WHO ARE OR HAVE BEEN ENROLLED IN A CHEMICAL DEPENDENCY/SUBSTANCEABUSE PROGRAM, SOME INFORMATION MAY BE OMITTED. This clinical summary was aggregated from multiple sources. Caution should be exercised in using it in the provision of clinical care. This summary normalizes information from multiple sources, and as a consequence, information in this document may materially change the coding, format and clinical context of patient data. In addition, data may be omitted in some cases. CLINICAL DECISIONS SHOULD BE BASED ON THE PRIMARY CLINICAL RECORDS. [email or web address] [email or web address]. provides no warranty or guarantee of the accuracy or completeness of information in this document.
--- OUTSIDE RECORDS SUMMARY | 2023-05-25 10:42 | XMS RPT_ITS | CCD ---
Author Name Unknown Address [id number] [place] [address] Organization [facility] Care Team Providers Care Cabinetmaker Apprentice Name Role Phone Janice MARRUFO, Lauren Garcia Unavailable [phone] SUSIE Carlos, Tana Hernandes Unavailable Unavailable SUSIE Carlos, Tana Hernandes Unavailable Unavailable SUSIE Young, Korin Hernandes Unavailable Unavailabigail Young RN, Korin Hernandes Unavailable Unavailabigail Biswas MD, Barrett S Unavailable SUSIE Carlos, Tana Hernandes Unavailable Unavailable José Miguel SPECIAL EDUCATION PROFESSOR, Zo S Unavailable [phone] SUSIE Carlos, [...] TABS One tablet by mouth daily ASPIRIN [id number] Barrett Biswas MD Problems Active Problems Problem [...] Mass Index) 22.14 kg/m2 Zo Valdez NP [facility] 03-09-2017 14:20-0400 Body Temperature 97.1 [degF] Zo Valdez NP [facility] 03-09-2017 14:20-0400 Body Temperature 97.11 [degF] Zo Valdez NP [facility] 03-09-2017 14:20-0400 BP Diastolic 76 mm[Hg] Zo Carrollton SPECIAL EDUCATION PROFESSOR [facility] 03-09-2017 14:20-0400 BP Systolic 126 mm[Hg] Zo Carrollton SPECIAL EDUCATION PROFESSOR [facility] 03-09-2017 14:20-0400 Height 170.18 cm Zo José Miguel SPECIAL EDUCATION PROFESSOR [facility] 03-09-2017 14:20-0400 Pulse (Heart Rate) 75 /min Zo José Miguel SPECIAL EDUCATION PROFESSOR [facility] 03-09-2017 14:20-0400 Respiratory Rate 16 /min Zo [place] SPECIAL EDUCATION PROFESSOR [facility] 03-09-2017 14:20-0400 Weight 64.14 kg Zo Carrollton SPECIAL EDUCATION PROFESSOR [facility] 02-09-2017 14:19-0400 BMI (Body Mass Index) 21.71 kg/m2 Zo José Miguel SPECIAL EDUCATION PROFESSOR [facility] 02-09-2017 14:19-0400 Body Temperature 98.2 [degF] Zo José Miguel SPECIAL EDUCATION PROFESSOR [facility] 02-09-2017 14:19-0400 BP Diastolic 72 mm[Hg] Zo José Miguel SPECIAL EDUCATION PROFESSOR [facility] 02-09-2017 14:19-0400 BP Systolic 127 mm[Hg] Zo [place] SPECIAL EDUCATION PROFESSOR [facility] 02-09-2017 14:19-0400 Height 170.18 cm Zo [place]ton SPECIAL EDUCATION PROFESSOR [facility] 02-09-2017 14:19-0400 Pulse (Heart Rate) 88 /min Zo [place] SPECIAL EDUCATION PROFESSOR [facility] 02-09-2017 14:19-0400 Weight 62.87 kg Zo [place]ton SPECIAL EDUCATION PROFESSOR [facility] 01-20-2017 10:49-0400 BMI (Body Mass Index) 21.8 kg/m2 Lauren Camacho MD [facility] 01-20-2017 10:49-0400 Body Temperature 97.5 [degF] Lauren Camacho MD [facility] 01-20-2017 10:49-0400 BP Diastolic 72 mm[Hg] Lauren Camacho MD [facility] 01-20-2017 10:49-0400 BP Systolic 160 mm[Hg] Lauren Camacho MD [facility] 01-20-2017 10:49-0400 Height 170.18 cm Lauren Camacho MD [facility] 01-20-2017 10:49-0400 Pulse (Heart Rate) 73 /min Lauren Camacho MD [facility] 01-20-2017 10:49-0400 Respiratory Rate 16 /min Lauren Camacho MD [facility] 01-20-2017 10:49-0400 Weight 63.14 kg Lauren Camacho MD [facility] 10-11-2016 09:36-0400 Body surface area Derived from [...] Mass Index) 21.55 kg/m2 Barrett Biswas MD [facility] Work Phone: 04-15-2016 13:06-0500 Body [...] End: 07-22-2020 Patient encounter procedure [facility] Procedures Date Procedure Procedure Detail Performing Clinician Start: 02-21-2017 End: 02-22-2017 Interrogation eval remote 90 d /2/vmware administrator lead pm Karolina Blanc PA-C Work Phone: Start: 01-20-2017 End: 01-21-2017 Herpes simplex virus 1+2 IgG Ab [Units/volume] in Serum Lauren Camacho MD Work Phone: Start: 01-20-2017 End: 01-21-2017 Herpes simplex virus 1+2 IgG Ab [Units/volume] in Serum Lauren Camacho MD Work Phone: Start: 11-15-2016 End: 11-15-2016 Interrogation eval remote 90 d 1/2/vmware administrator lead pm Karolina Blanc PA-C Work Phone: [...] Barrett Biswas MD Start: 09-22-2016 End: 12-20-2016 INSPECTING ENGINEER Barrett Biswas MD Start: 09-22-2016 End: 09-22-2016 Ecg routine ecg w/least 12 lds w/i&r Barrett Biswas MD Start: 09-22-2016 End: 12-20-2016 Follow Up Appt 3 months Greta Mcgraw Start: 09-22-2016 End: 09-22-2016 *BMP Barrett Biswas MD Start: 09-22-2016 End: 09-22-2016 CBC W Auto Differential panel - Blood Barrett Biswas MD Start: 09-22-2016 End: 12-20-2016 INSPECTING ENGINEER Barrett Biswas MD Start: 09-22-2016 End: 09-22-2016 [...] End: 09-22-2016 Follow Up Appt 6 months Karolian garza PA-C Work Phone: Start: 04-26-2016 End: [...] Start: 03-16-2012 End: 12-28-2013 Electrocardiogram, complete Barrett Biswas MD Start: 03-16-2012 End: 03-16-2012 Follow Up Appt 1 year Barrett Biswas MD Plan of Treatment Date Care Activity Detail Author Start: 05-31-2017 End: 05-31-2017 Appointment Appointment [facility] Work Phone: Start: 03-09-2017 End: 03-09-[address] [facility] Start: 02-21-2017 End: 02-21-2017 Appointment Appointment [facility] Work Phone: Start: 02-21-2017 End: 02-22-2017 Follow Up Appt 3 months Follow Up Appt 3 months [facility] Work Phone: Start: 02-21-2017 End: 02-22-2017 Pacer Clinic [facility] Work Phone: Start: 02-09-2017 End: 02-09-2017 Appointment Appointment [facility] Start: 01-20-2017 End: 01-20-2017 *HSVS HSV Culture Screen [id number] *HSVS HSV Culture Screen [id number] [facility] Start: 01-20-2017 End: 01-21-2017 Herpes simplex virus 1+2 IgG Ab [Units/volume] in Serum *HS12G Herpes Simplex Antibody [facility] Start: 01-20-2017 End: 01-20-2017 Appointment Appointment [facility] Start: 01-20-2017 End: 01-20-2017 *HSVS HSV Culture Screen [id number] *HSVS HSV Culture Screen [id number] [facility] Start: 01-20-2017 End: 01-21-2017 Herpes simplex virus 1+2 IgG Ab [Units/volume] in Serum *HS12G Herpes Simplex Antibody [facility] Start: 12-23-2016 End: 12-23-2016 Appointment Appointment [facility] Work Phone: Start: 12-23-2016 End: 12-23-2016 Appointment Appointment [facility] Work Phone: Start: 11-15-2016 End: 11-15-2016 Follow Up Appt 3 months Follow Up Appt [address] [facility] Start: 11-15-2016 End: 11-15-2016 Pacer Clinic Pacer [facility] Start: 11-15-2016 End: 11-15-2016 Appointment Appointment [facility] Work Phone: Start: 11-15-2016 End: 11-15-2016 Follow Up Appt 3 months Follow Up Appt 3 months [facility] Work Phone: Start: 11-15-2016 End: 11-15-2016 Pacer Clinic Pacer Clinic [facility] Work Phone: Start: 10-25-2016 End: 10-25-2016 Appointment Appointment [facility] Work Phone: Start: 10-25-2016 End: 10-25-2016 Appointment Appointment [facility] Work Phone: Start: 10-08-2016 End: 10-08-2016 *BMP *BMP [facility] Start: 10-08-2016 End: 10-08-2016 *BMP *BMP [facility] Work Phone: Start: 09-22-2016 End: 09-22-2016 *BMP *BMP [facility] Start: 09-22-2016 End: 09-22-2016 Appointment Appointment [facility] Work Phone: Start: 09-22-2016 End: 09-22-2016 CBC W Auto Differential panel - Blood *CBC without Diff [facility] Start: 09-22-2016 End: 12-20-2016 INSPECTING ENGINEER INSPECTING ENGINEER [facility] Start: 09-22-2016 End: 09-22-2016 Ecg routine ecg w/least 12 lds w/i&r EKG (In office) [facility] Start: 09-22-2016 End: 12-20-2016 Follow Up Appt 3 months Follow Up Appt [address] [facility] Start: 09-22-2016 End: 10-08-2016 Left Heart Cath Left Heart Cath [facility] Start: 09-22-2016 End: 09-22-2016 *BMP *BMP [facility] Work Phone: Start: 09-22-2016 End: 09-22-2016 CBC W Auto Differential panel - Blood *CBC without Diff [facility] Work Phone: Start: 09-22-2016 End: 12-20-2016 INSPECTING ENGINEER INSPECTING ENGINEER [facility] Work Phone: Start: 09-22-2016 End: 09-22-2016 Electrocardiogram, complete EKG (In office) [facility] Work Phone: Start: 09-22-2016 End: 12-20-2016 Follow Up Appt 3 months Follow Up Appt 3 months [facility] Work Phone: Start: 09-22-2016 End: 10-08-2016 Left Heart Cath Left Heart Cath [facility] Work Phone: Start: 04-26-2016 End: 09-22-2016 Follow Up Appt 6 months Follow Up Appt 6 months [facility] Start: 04-26-2016 End: 09-22-2016 [facility] Start: 04-26-2016 End: 09-22-2016 Follow Up Appt 6 months Follow Up Appt 6 months [facility] Work Phone: Start: 04-26-2016 End: 09-22-2016 [facility] Work Phone: Start: 04-15-2016 End: 09-22-2016 INSPECTING ENGINEER INSPECTING ENGINEER [facility] Start: 04-15-2016 End: 09-22-2016 Follow Up Appt 1 year Follow Up Appt 1 year [facility] Start: 04-15-2016 End: 09-22-2016 INSPECTING ENGINEER INSPECTING ENGINEER [facility] Work Phone: Start: 04-15-2016 End: 09-22-2016 Follow Up Appt 1 year Follow Up Appt 1 year [facility] Work Phone: Start: 04-14-2016 End: 04-16-2016 *BMP *BMP [facility] Start: 04-14-2016 End: 04-16-2016 *UA - Urinalysis w/o Micro *UA - Urinalysis w/o Micro [facility] Start: 04-14-2016 End: 04-16-2016 CBC W Auto Differential panel - Blood *CBC without Diff [facility] Start: 04-14-2016 End: 04-16-2016 Chest x-ray X-Ray, Chest, PA & Lateral [facility] Start: 04-14-2016 End: 04-23-2016 Ecg routine ecg w/least 12 lds w/i&r EKG (In office) [facility] Start: 04-14-2016 End: 04-16-2016 INR Coag RelTime (PPP) *PT/INR [facility] Start: 04-14-2016 End: 04-15-2016 Pacemaker Generator Change Pacemaker Generator Change [facility] Start: 04-14-2016 End: 04-16-2016 *BMP *BMP [facility] Work Phone: Start: 04-14-2016 End: 04-16-2016 *UA - Urinalysis w/o Micro *UA - Urinalysis w/o Micro [facility] Work Phone: Start: 04-14-2016 End: 04-16-2016 CBC W Auto Differential panel - Blood *CBC without Diff [facility] Work Phone: Start: 04-14-2016 End: 04-16-2016 Chest x-ray X-Ray, Chest, PA & Lateral [facility] Work Phone: Start: 04-14-2016 End: 04-16-2016 Coagulation factor induced.INR assay in platelet poor plasma *PT/INR [facility] Work Phone: Start: 04-14-2016 End: 04-23-2016 Electrocardiogram, complete EKG (In office) [facility] Work Phone: Start: 04-14-2016 End: 04-15-2016 Pacemaker Generator Change Pacemaker Generator Change [facility] Work Phone: Start: 12-26-2015 End: 04-23-2016 Follow Up Appt 3 months Follow Up Appt 3 months [facility] Start: 12-26-2015 End: 04-23-2016 [facility] Start: 12-26-2015 End: 04-23-2016 Follow Up Appt 3 months Follow Up Appt 3 months [facility] Work Phone: Start: 12-26-2015 End: 04-23-2016 [facility] Work Phone: Start: 07-09-2015 End: 04-23-2016 Follow Up Appt 6 months Follow Up Appt 6 months [facility] Start: 07-09-2015 End: 04-23-2016 [facility] Start: 07-09-2015 End: 04-23-2016 Follow Up Appt 6 months Follow Up Appt 6 months [facility] Work Phone: Start: 07-09-2015 End: 04-23-2016 [facility] Work Phone: Start: 04-02-2015 End: 04-23-2016 Follow Up Appt 3 months Follow Up Appt 3 months [facility] Start: 04-02-2015 End: 04-23-2016 [facility] Start: 04-02-2015 End: 04-23-2016 Follow Up Appt 3 months Follow Up Appt 3 months [facility] Work Phone: Start: 04-02-2015 End: 04-23-2016 [facility] Work Phone: Start: 11-14-2014 End: 04-23-2016 Follow Up Appt 3 months Follow Up Appt 3 months [facility] Start: 11-14-2014 End: 04-23-2016 [facility] Start: 11-14-2014 End: 04-23-2016 Follow Up Appt 3 months Follow Up Appt 3 months [facility] Work Phone: Start: 11-14-2014 End: 04-23-2016 [facility] Work Phone: Start: 08-15-2014 End: 04-23-2016 Follow Up Appt 6 months Follow Up Appt 6 months [facility] Start: 08-15-2014 End: 04-23-2016 [facility] Start: 08-15-2014 End: 04-23-2016 Follow Up Appt 6 months Follow Up Appt 6 months [facility] Work Phone: Start: 08-15-2014 End: 04-23-2016 [facility] Work Phone: Start: 05-01-2014 End: 05-06-2014 INSPECTING ENGINEER INSPECTING ENGINEER [facility] Start: 05-01-2014 End: 04-23-2016 Follow Up Appt 3 months Follow Up Appt 3 months [facility] Start: 05-01-2014 End: 05-06-2014 Follow Up Appt 6 months Follow Up Appt 6 months [facility] Start: 05-01-2014 End: 04-23-2016 [facility] Start: 05-01-2014 End: 05-06-2014 INSPECTING ENGINEER INSPECTING ENGINEER [facility] Work Phone: Start: 05-01-2014 End: 04-23-2016 Follow Up Appt 3 months Follow Up Appt 3 months [facility] Work Phone: Start: 05-01-2014 End: 05-06-2014 Follow Up Appt 6 months Follow Up Appt 6 months [facility] Work Phone: Start: 05-01-2014 End: 04-23-2016 [facility] Work Phone: Start: 04-15-2014 End: 04-23-2016 Follow Up Appt 3 months Follow Up Appt 3 months [facility] Start: 04-15-2014 End: 04-23-2016 [facility] Start: 04-15-2014 End: 04-23-2016 Follow Up Appt 3 months Follow Up Appt 3 months [facility] Work Phone: Start: 04-15-2014 End: 04-23-2016 [facility] Work Phone: Start: 12-28-2013 End: 04-23-2016 Follow Up Appt 3 months Follow Up Appt 3 months [facility] Start: 12-28-2013 End: 04-23-2016 [facility] Start: 12-28-2013 End: 04-23-2016 Follow Up Appt 3 months Follow Up Appt 3 months [facility] Work Phone: Start: 12-28-2013 End: 04-23-2016 [facility] Work Phone: Start: 08-15-2013 End: 12-28-2013 Follow Up Appt 3 months Follow Up Appt 3 months [facility] Start: 08-15-2013 End: 12-28-2013 [facility] Start: 08-15-2013 End: 12-28-2013 Follow Up Appt 3 months Follow Up Appt 3 months [facility] Work Phone: Start: 08-15-2013 End: 12-28-2013 [facility] Work Phone: Start: 02-01-2013 End: 12-28-2013 Follow Up Appt 3 months Follow Up Appt 3 months [facility] Start: 02-01-2013 End: 12-28-2013 [facility] Start: 02-01-2013 End: 12-28-2013 Follow Up Appt 3 months Follow Up Appt 3 months [facility] Work Phone: Start: 02-01-2013 End: 12-28-2013 [facility] Work Phone: Start: 10-23-2012 End: 12-28-2013 Follow Up Appt 3 months Follow Up Appt 3 months [facility] Start: 10-23-2012 End: 12-28-2013 Pacer Clinic Pacer [facility] Start: 10-23-2012 End: 12-28-2013 Follow Up Appt 3 months Follow Up Appt 3 months [facility] Work Phone: Start: 10-23-2012 End: 12-28-2013 [facility] Work Phone: Start: 07-19-2012 End: 12-28-2013 Follow Up Appt 3 months Follow Up Appt 3 months [facility] Start: 07-19-2012 End: 12-28-2013 [facility] Start: 07-19-2012 End: 12-28-2013 Follow Up Appt 3 months Follow Up Appt 3 months [facility] Work Phone: Start: 07-19-2012 End: 12-28-2013 [facility] Work Phone: Start: 03-16-2012 End: 12-28-2013 Ecg routine ecg w/least 12 lds w/i&r EKG (In office) [facility] Start: 03-16-2012 End: 03-16-2012 Follow Up Appt 1 year Follow Up Appt 1 year [facility] Start: 03-16-2012 End: 12-28-2013 Electrocardiogram, complete EKG (In office) [facility] Work Phone: Start: 03-16-2012 End: 03-16-2012 Follow Up Appt 1 year Follow Up Appt 1 year [facility] Work Phone: Payers Date Payer Category Payer Unknown [id number] Private Health Insurance [id number] Clinical Note 04-22-2021 Note Date & Type Note Facility 04-22-2021 Note Patient Outreach (ARIANE WHITNEY) RADHA SAWYER ([id number]) 1955 F Date Time Provider Department 04/22/21 BRENDEN CLAUDIO During your visit today, we recorded the following information about you: Brenden Van Shanon Population Health Navigator 04/22/2021 9:47 AM Signed POPULATION HEALTH NAVIGATION OUTREACH Action/FYI I spoke with patient and she is already with a pcp at [facility] No care everywhere Update pcp field [...] future healthcare decisions with a power of tailoring teacher, living will, or advance directives? No. Please bring a copy to your next appointment or email to [email or web address] Referrals: N/A Message Sent to Practice: NO Navigation Signature: Brenden Claudio Population Health Navigator April 22, 2021 9:45 AM Allergies As of Date: 04/22/2021 (No Known Allergies) Date Reviewed: 03/20/2020 Reviewed by: Ramila ([facility]) HOSEA Murphy - Fully Assessed Reason for [...] POPULATION HEALTH NAVIGATOR, BRENDEN Van on 04/22/21 [facility] Progress note 04-22-2021 Note Date & Type Note Facility 04-22-2021 Note HNO ID: [id number] Author: Brenden Claudio Population Health Navigator Service: ? Author Type: ? Type: Progress Notes Filed: 04/22/2021 9:47 AM Note Text: POPULATION HEALTH NAVIGATION OUTREACH Action/ I spoke with patient and she is already with a pcp at [facility] No care everywhere Update pcp field [...] future healthcare decisions with a power of tailoring teacher, living will, or advance directives? No. Please bring a copy to your next appointment or email to Referrals: N/A Message Sent to Practice: NO Navigation Signature: Brenden Claudio Population Health Navigator April 22, 2021 9:45 AM [facility] Summary Purpose Family History No Family History Records FoundNo Family History Records Found Advance Directives No Advanced Directives Records FoundNo Advanced Directives Records Found Additional Source Comments INFORMATION SOURCE (unrecogn ized section and content) DATE CREATED AUTHOR AUTHOR'S ORGANIZ ATION 06/03/2021 [facility] FOR RECORDS PERTAINING TO PATIENTS WHO [...] BE BASED ON THE PRIMARY CLINICAL RECORDS. [employer] [facility]. provides no warranty or guarantee of the accuracy or completeness of information in this document.
[2023-05-25 12:15] LABS: Absolute Lymphocyte Count 2.16 X10^3/uL (0.83-4.51); Basophil# 0.05 X10^3/uL; Basophil% 0.6 % (0-1); Eosinophil# 0.09 X10^3/uL; Eosinophils% 1.1 % (0-5); Hematocrit 42.2 % (37-47); Hemoglobin 13.5 g/dL (12.0-15.0); Lymphocyte # 2.16 X10^3/ul (0.83-4.51); Lymphocyte % 27.3 % (19-41); Mean Corpuscular Hgb 30.2 pg (27.0-32.0); Mean Corpuscular Volume 94.4 fL (81-99); Mean Platelet Vol. 10.8 fl (6.2-12.0); Monocyte# 0.54 X10^3/uL; Monocyte% 6.8 % (0-10); NRBC Flagged by Analyzer 0 % (0-5); Neutrophil # 5.03 X10^3/uL (2.7-7.7); Neutrophil % 63.7 % (47-70); Platelet Count 210 K/mm3 (150-450); RBC Distribution Width CV 13.9 % (11.6-14.6); RBC Distribution Width SD 48.7 fl (35.1-43.9); Red Blood Count 4.47 M/mm3 (4.2-5.4); White Blood Count 7.9 K/mm3 (4.4-11.0)
[2023-05-25 13:04] LABS: ALB/GLOB Ratio 1.1 RATIO (0.9-2.4); AST(SGOT) 28 U/L (15-37); Alanine Aminotransfer ALT/SGPT 35 U/L (13-56); Albumin, Serum 3.7 g/dL (3.2-5.0); Alkaline Phosphatase 60 U/L (45-117); Anion Gap 4 (5-15); BUN 16 mg/dL (7-18); BUN/Creat Ratio 23.7 RATIO (10-20); Calcium,Total 9.2 mg/dL (8.5-10.1); Chloride 109 mmol/L (98-107); Creatinine, Serum 0.68 mg/dL (0.55-1.02); EST Glomerular Filtration Rate 92 mL/min (>60); Est Glom Filt Rate - Afr Amer 111 mL/min (>60); Globulin 3.5 g/dL (2.2-4.2); Glucose 107 mg/dL (74-106); Potassium 3.7 mmol/L (3.5-5.1); Protein, Total 7.2 g/dL (6.4-8.2); Sodium Level 142 mmol/L (136-145)
== END | disposition home or self-care (01) ==
PROVIDERS: PCP Internal Medicine; Referring Provider Internal Medicine Rheumatology; Visit Provider Internal Medicine Rheumatology
DX: L40.59 Other psoriatic arthropathy (principal); Z79.899 Other long term (current) drug therapy
CPT/HCPCS: 36415; 80053; 85025

== ENCOUNTER → 2023-08-19 | Outpatient (CLI) | payer OTHER, SELFPAY ==
[2023-08-19 15:44] LABS: Absolute Lymphocyte Count 2.32 X10^3/uL (0.83-4.51); Absolute Neutrophil Count 3.6 X10^3/uL (2.0-7.7); Basophil# 0.05 X10^3/uL; Basophil% 0.8 % (0-1); Eosinophils% 1.5 % (0-5); Hematocrit 42.2 % (37-47); Hemoglobin 13.3 g/dL (12.0-15.0); Lymphocyte # 2.32 X10^3/ul (0.83-4.51); Lymphocyte % 35.2 % (19-41); Mean Corp Hgb Conc 31.5 g/dL (32-36); Mean Corpuscular Hgb 29.6 pg (27.0-32.0); Mean Platelet Vol. 11.8 fl (6.2-12.0); Monocyte# 0.47 X10^3/uL; Monocyte% 7.1 % (0-10); NRBC Flagged by Analyzer 0 % (0-5); Neutrophil # 3.63 X10^3/uL (2.7-7.7); Neutrophil % 55.1 % (47-70); Platelet Count 170 K/mm3 (150-450); RBC Distribution Width SD 47.9 fl (35.1-43.9); Red Blood Count 4.49 M/mm3 (4.2-5.4); White Blood Count 6.6 K/mm3 (4.4-11.0)
[2023-08-19 16:19] LABS: ALB/GLOB Ratio 1.1 RATIO (0.9-2.4); AST(SGOT) 21 U/L (15-37); Alanine Aminotransfer ALT/SGPT 29 U/L (13-56); Albumin, Serum 3.8 g/dL (3.2-5.0); Alkaline Phosphatase 65 U/L (45-117); Anion Gap 4 (5-15); BUN 17 mg/dL (7-18); BUN/Creat Ratio 18.4 RATIO (10-20); Calcium,Total 9.4 mg/dL (8.5-10.1); Chloride 107 mmol/L (98-107); Creatinine, Serum 0.92 mg/dL (0.55-1.02); EST Glomerular Filtration Rate 64 mL/min (>60); Est Glom Filt Rate - Afr Amer 78 mL/min (>60); Globulin 3.6 g/dL (2.2-4.2); Glucose 80 mg/dL (74-106); Potassium 3.5 mmol/L (3.5-5.1); Protein, Total 7.4 g/dL (6.4-8.2); Sodium Level 141 mmol/L (136-145)
== END | disposition home or self-care (01) ==
LOC: MTLAB 11:39
PROVIDERS: PCP Internal Medicine; Referring Provider Internal Medicine Rheumatology; Visit Provider Internal Medicine Rheumatology
DX: L40.59 Other psoriatic arthropathy (principal); Z79.899 Other long term (current) drug therapy
CPT/HCPCS: 36415; 80053; 85025

== ENCOUNTER → 2023-11-02 | Outpatient (CLI) | payer OTHER, SELFPAY ==
--- NOTE | 2023-11-02 08:31 | BI_ITS ---
MAMMOGRAPHY - BILATERAL SCREENING REASON FOR EXAM: Female, 68 years old. Routine annual screening examination. PERTINENT HISTORY: Non-contributory. History of prior left excisional breast biopsy. TECHNIQUE: Digital bilateral breast molly (3D mammographic acquisition) in the CC and MLO projections. 2-D mediolateral oblique (MLO) and craniocaudad (CC) views of both breasts were obtained. CAD: Full Field Digital Mammography with Computer Added Detection was performed. COMPARISON: Comparison is made with prior study February 08, 2022 and July 30, 2020. FINDINGS: Breast Composition: The breasts are extremely dense, which lowers the sensitivity of mammography. There are no dominant masses or suspicious calcifications. Stable scattered macrocalcifications. Tiny calcific densities are seen in the right axilla. This most likely represents residue from underarm deodorant. A repeat the mediolateral oblique view of the right breast is recommended without the ordering. No other significant abnormalities are identified. BI/SCRN MAMM (CAD)W/MOLLY BILAT IMPRESSION: Stable bilateral screening mammogram except for calcific densities in the right axilla most likely secondary to particles from deoderant. . A repeat mediolateral oblique view of the right breast is recommended. ASSESSMENT CATEGORY: BIRADS Category 0: Incomplete. Need additional imaging evaluation. A letter regarding these results will be sent to the patient by the facility within 30 days. Approximately 10% of breast cancers are not detected by mammography. A normal mammogram should not delay biopsy of a clinically suspicious abnormality. [id number] Electronically Signed: Shahriar Keane MD at 9:35 EDT ,
--- NOTE | 2023-11-02 10:20 | BI_ITS ---
MAMMOGRAPHY - UNILATERAL DIAGNOSTIC: RIGHT BREAST REASON FOR EXAM: Female, 68 years old. Repeat right MLO view. PERTINENT HISTORY: Non-contributory. TECHNIQUE: A repeat MLO view of the right breast was obtained to rule out possible artifact. Obtained. CAD: Full Field Digital Mammography with Computer Added Detection was performed. COMPARISON: Comparison is made with prior study done earlier today. FINDINGS: Breast Composition: The breasts are extremely dense, which lowers the sensitivity of mammography. There are no dominant masses or suspicious calcifications. No other significant abnormalities are identified. BI/DIAG MAMM W/CAD, UNILAT IMPRESSION: Negative unilateral diagnostic mammogram. Yearly followup mammogram recommended. (A) ASSESSMENT CATEGORY: BIRADS Category 1: Negative. A letter regarding these results will be sent to the patient by the facility within 30 days. Approximately 10% of breast cancers are not detected by mammography. A normal mammogram should not delay biopsy of a clinically suspicious abnormality. Electronically Signed: Shahriar Keane MD at 13:54 EDT ,
== END | disposition home or self-care (01) ==
LOC: OPBI 08:31
PROVIDERS: PCP Internal Medicine; Referring Provider Internal Medicine; Visit Provider Internal Medicine
DX: Z12.31 Encounter for screening mammogram for malignant neoplasm of breast (principal); R92.8 Other abnormal and inconclusive findings on diagnostic imaging of breast
CPT/HCPCS: 77063; 77065; 77067

== ENCOUNTER → 2023-11-09 | Outpatient (CLI) | payer OTHER, SELFPAY ==
[2023-11-09 17:38] LABS: Absolute Lymphocyte Count 2.73 X10^3/uL (0.83-4.51); Absolute Neutrophil Count 4.2 X10^3/uL (2.0-7.7); Basophil# 0.05 X10^3/uL; Basophil% 0.6 % (0-1); Eosinophil# 0.08 X10^3/uL; Hematocrit 39.1 % (37-47); Hemoglobin 12.8 g/dL (12.0-15.0); Lymphocyte # 2.73 X10^3/ul (0.83-4.51); Lymphocyte % 35.4 % (19-41); Mean Corp Hgb Conc 32.7 g/dL (32-36); Mean Corpuscular Hgb 30.3 pg (27.0-32.0); Mean Corpuscular Volume 92.7 fL (81-99); Mean Platelet Vol. 11.1 fl (6.2-12.0); Monocyte# 0.63 X10^3/uL; Monocyte% 8.2 % (0-10); NRBC Flagged by Analyzer 0 % (0-5); Neutrophil # 4.21 X10^3/uL (2.7-7.7); Neutrophil % 54.5 % (47-70); Platelet Count 160 K/mm3 (150-450); RBC Distribution Width CV 13.9 % (11.6-14.6); RBC Distribution Width SD 46.8 fl (35.1-43.9); Red Blood Count 4.22 M/mm3 (4.2-5.4); White Blood Count 7.7 K/mm3 (4.4-11.0)
[2023-11-09 17:55] LABS: ALB/GLOB Ratio 1.2 RATIO (0.9-2.4); AST(SGOT) 22 U/L (15-37); Alanine Aminotransfer ALT/SGPT 27 U/L (13-56); Albumin, Serum 3.8 g/dL (3.2-5.0); Alkaline Phosphatase 58 U/L (45-117); Anion Gap 8 (5-15); BUN 20 mg/dL (7-18); Calcium,Total 9.5 mg/dL (8.5-10.1); Chloride 106 mmol/L (98-107); Creatinine, Serum 0.84 mg/dL (0.55-1.02); EST Glomerular Filtration Rate 72 mL/min (>60); Est Glom Filt Rate - Afr Amer 87 mL/min (>60); Globulin 3.2 g/dL (2.2-4.2); Glucose 92 mg/dL (74-106); Potassium 3.7 mmol/L (3.5-5.1); Sodium Level 139 mmol/L (136-145)
== END | disposition home or self-care (01) ==
PROVIDERS: PCP Internal Medicine; Referring Provider Internal Medicine Rheumatology; Visit Provider Internal Medicine Rheumatology
DX: L40.59 Other psoriatic arthropathy (principal); Z79.899 Other long term (current) drug therapy
CPT/HCPCS: 36415; 80053; 85025

== ENCOUNTER → 2024-02-06 | Outpatient (CLI) | payer OTHER, SELFPAY ==
[2024-02-06 15:07] LABS: Absolute Lymphocyte Count 2.41 X10^3/uL (0.83-4.51); Absolute Neutrophil Count 4.2 X10^3/uL (2.0-7.7); Basophil# 0.06 X10^3/uL; Basophil% 0.8 % (0-1); Eosinophil# 0.05 X10^3/uL; Eosinophils% 0.7 % (0-5); Hematocrit 41.1 % (37-47); Hemoglobin 13.2 g/dL (12.0-15.0); Lymphocyte # 2.41 X10^3/ul (0.83-4.51); Lymphocyte % 32.6 % (19-41); Mean Corp Hgb Conc 32.1 g/dL (32-36); Mean Corpuscular Hgb 30.1 pg (27.0-32.0); Mean Corpuscular Volume 93.8 fL (81-99); Mean Platelet Vol. 11.4 fl (6.2-12.0); Monocyte# 0.67 X10^3/uL; Monocyte% 9.1 % (0-10); NRBC Flagged by Analyzer 0 % (0-5); Neutrophil # 4.19 X10^3/uL (2.7-7.7); Neutrophil % 56.5 % (47-70); Platelet Count 151 K/mm3 (150-450); RBC Distribution Width CV 13.4 % (11.6-14.6); RBC Distribution Width SD 45.9 fl (35.1-43.9); Red Blood Count 4.38 M/mm3 (4.2-5.4); White Blood Count 7.4 K/mm3 (4.4-11.0)
[2024-02-06 15:49] LABS: Vitamin D,25 Hydroxy 67.5 ng/mL
[2024-02-06 16:03] LABS: ALB/GLOB Ratio 1.1 RATIO (0.9-2.4); AST(SGOT) 18 U/L (15-37); Alanine Aminotransfer ALT/SGPT 21 U/L (13-56); Albumin, Serum 3.9 g/dL (3.2-5.0); Alkaline Phosphatase 55 U/L (45-117); Anion Gap 5 (5-15); BUN 17 mg/dL (7-18); BUN/Creat Ratio 20.4 RATIO (10-20); Calcium,Total 9.8 mg/dL (8.5-10.1); Chloride 107 mmol/L (98-107); Cholesterol 237 mg/dL (200); Creatinine, Serum 0.83 mg/dL (0.55-1.02); EST Glomerular Filtration Rate 72 mL/min (>60); Est Glom Filt Rate - Afr Amer 88 mL/min (>60); Globulin 3.4 g/dL (2.2-4.2); Glucose 96 mg/dL (74-106); High Density Lipoprotein 88 mg/dL; Potassium 4.2 mmol/L (3.5-5.1); Protein, Total 7.3 g/dL (6.4-8.2); Sodium Level 140 mmol/L (136-145); Triglycerides 71 mg/dL; Very Low Density Lipoprotein 14 mg/dL (5-40)
== END | disposition home or self-care (01) ==
LOC: MTLAB 13:02
PROVIDERS: PCP Internal Medicine; Referring Provider Internal Medicine; Visit Provider Internal Medicine
DX: L40.59 Other psoriatic arthropathy (principal); Z79.899 Other long term (current) drug therapy; E78.5 Hyperlipidemia, unspecified; M81.0 Age-related osteoporosis without current pathological fracture
CPT/HCPCS: 36415; 80053; 80061; 82306; 85025

== ENCOUNTER → 2024-05-07 | Outpatient (CLI) | payer OTHER, SELFPAY ==
[2024-05-07 17:49] LABS: Absolute Lymphocyte Count 2.05 X10^3/uL (0.83-4.51); Absolute Neutrophil Count 4.2 X10^3/uL (2.0-7.7); Basophil# 0.05 X10^3/uL; Basophil% 0.7 % (0-1); Eosinophils% 1.4 % (0-5); Hematocrit 38.5 % (37-47); Hemoglobin 12.6 g/dL (12.0-15.0); Lymphocyte # 2.05 X10^3/ul (0.83-4.51); Lymphocyte % 29.5 % (19-41); Mean Corp Hgb Conc 32.7 g/dL (32-36); Mean Corpuscular Hgb 30.7 pg (27.0-32.0); Mean Corpuscular Volume 93.9 fL (81-99); Mean Platelet Vol. 10.6 fl (6.2-12.0); Monocyte# 0.49 X10^3/uL; Monocyte% 7.1 % (0-10); NRBC Flagged by Analyzer 0 % (0-5); Neutrophil # 4.24 X10^3/uL (2.7-7.7); Platelet Count 162 K/mm3 (150-450); RBC Distribution Width CV 13.6 % (11.6-14.6); RBC Distribution Width SD 46.2 fl (35.1-43.9)
[2024-05-07 18:11] LABS: ALB/GLOB Ratio 1.1 RATIO (0.9-2.4); AST(SGOT) 18 U/L (15-37); Alanine Aminotransfer ALT/SGPT 27 U/L (13-56); Albumin, Serum 3.7 g/dL (3.2-5.0); Alkaline Phosphatase 60 U/L (45-117); Anion Gap 5 (5-15); BUN 18 mg/dL (7-18); BUN/Creat Ratio 21.8 RATIO (10-20); Calcium,Total 9.4 mg/dL (8.5-10.1); Chloride 106 mmol/L (98-107); Creatinine, Serum 0.83 mg/dL (0.55-1.02); EST Glomerular Filtration Rate 73 mL/min (>60); Est Glom Filt Rate - Afr Amer 88 mL/min (>60); Globulin 3.4 g/dL (2.2-4.2); Glucose 155 mg/dL (74-106); Potassium 3.6 mmol/L (3.5-5.1); Protein, Total 7.1 g/dL (6.4-8.2); Sodium Level 140 mmol/L (136-145)
== END | disposition home or self-care (01) ==
PROVIDERS: PCP Internal Medicine; Referring Provider Internal Medicine Rheumatology; Visit Provider Internal Medicine Rheumatology
DX: L40.59 Other psoriatic arthropathy (principal); Z79.899 Other long term (current) drug therapy
CPT/HCPCS: 36415; 80053; 85025

== ENCOUNTER → 2024-07-31 | Outpatient (CLI) | payer MEDICARE, SELFPAY ==
[2024-07-31 16:12] LABS: Absolute Lymphocyte Count 2.31 X10^3/uL (0.83-4.51); Absolute Neutrophil Count 3.7 X10^3/uL (2.0-7.7); Basophil# 0.05 X10^3/uL; Basophil% 0.7 % (0-1); Eosinophil# 0.15 X10^3/uL; Eosinophils% 2.2 % (0-5); Hematocrit 40.9 % (37-47); Hemoglobin 13.4 g/dL (12.0-15.0); Lymphocyte # 2.31 X10^3/ul (0.83-4.51); Lymphocyte % 33.2 % (19-41); Mean Corp Hgb Conc 32.8 g/dL (32-36); Mean Corpuscular Volume 94.7 fL (81-99); Mean Platelet Vol. 11.2 fl (6.2-12.0); Monocyte% 10.1 % (0-10); NRBC Flagged by Analyzer 0 % (0-5); Neutrophil # 3.74 X10^3/uL (2.7-7.7); Neutrophil % 53.7 % (47-70); Platelet Count 188 K/mm3 (150-450); RBC Distribution Width CV 14.4 % (11.6-14.6); RBC Distribution Width SD 50.4 fl (35.1-43.9); Red Blood Count 4.32 M/mm3 (4.2-5.4)
[2024-07-31 17:23] LABS: ALB/GLOB Ratio 1.5 RATIO (0.9-2.4); AST(SGOT) 30 U/L (<=31); Alanine Aminotransfer ALT/SGPT 46 U/L (<=34); Albumin, Serum 4.2 g/dL (3.4-4.8); Alkaline Phosphatase 70 U/L (35-104); Anion Gap 8 (5-15); BUN 23 mg/dL (4-19); BUN/Creat Ratio 30.9 RATIO (10-20); Calcium,Total 9.9 mg/dL (7.6-11.0); Carbon Dioxide 26.2 mmol/L (21.0-32.0); Chloride 107 mmol/L (98-108); Creatinine, Serum 0.74 mg/dL (0.70-1.20); EST Glomerular Filtration Rate 88 (>60); Globulin 2.8 g/dL (2.2-4.2); Glucose 89 mg/dL (70-99); Sodium Level 141 mmol/L (133-145); Total Bilirubin 0.31 mg/dL (0.00-1.30)
== END | disposition home or self-care (01) ==
PROVIDERS: PCP Internal Medicine; Referring Provider Internal Medicine Rheumatology; Visit Provider Internal Medicine Rheumatology
DX: L40.59 Other psoriatic arthropathy (principal); Z79.899 Other long term (current) drug therapy
CPT/HCPCS: 36415; 80053; 85025

== ENCOUNTER → 2024-08-22 | Outpatient (CLI) | payer MEDICARE, BC, SELFPAY ==
--- NOTE | 2024-08-22 07:17 | US_ITS ---
PROCEDURE: LIVER (USLI), 08/22/2024 REASON FOR EXAM: ELEVATED LIVER ENZYMES COMPARISON: None FINDINGS: Liver: Unremarkable. 12.2 cm in length. Gallbladder: Unremarkable. Reportedly, sonographic Steen's was negative. Biliary tree: Unremarkable. CBD measures 4 mm. Pancreas: Partially obscured by shadowing bowel gas, grossly unremarkable as visualized. Right kidney: Unremarkable. 10.4 cm in length. Other: No visualized free fluid. US/Liver IMPRESSION: 1. Grossly unremarkable sonographic appearance of the hepatic parenchyma. No b iliary dilatation. 2. Additional description as above. Reading Location: [id number]
== END | disposition home or self-care (01) ==
LOC: US 07:16
PROVIDERS: PCP Internal Medicine; Referring Provider Internal Medicine Rheumatology; Visit Provider Internal Medicine Rheumatology
DX: L40.59 Other psoriatic arthropathy (principal); Z79.899 Other long term (current) drug therapy
CPT/HCPCS: 76705

== ENCOUNTER → 2024-08-27 | Outpatient (CLI) | payer MEDICARE, BC, SELFPAY ==
[2024-08-27 18:48] LABS: ALB/GLOB Ratio 1.6 RATIO (0.9-2.4); AST(SGOT) 24 U/L (<=31); Alanine Aminotransfer ALT/SGPT 23 U/L (<=34); Albumin, Serum 4.2 g/dL (3.4-4.8); Alkaline Phosphatase 65 U/L (35-104); Anion Gap 10 (5-15); BUN 21 mg/dL (4-19); BUN/Creat Ratio 26.4 RATIO (10-20); Calcium,Total 9.6 mg/dL (7.6-11.0); Carbon Dioxide 26.5 mmol/L (21.0-32.0); Chloride 108 mmol/L (98-108); Creatinine, Serum 0.81 mg/dL (0.70-1.20); EST Glomerular Filtration Rate 79 (>60); Globulin 2.7 g/dL (2.2-4.2); Glucose 103 mg/dL (70-99); Potassium 3.9 mmol/L (3.3-5.1); Protein, Total 6.8 g/dL (5.9-8.4); Sodium Level 144 mmol/L (133-145); Total Bilirubin 0.27 mg/dL (0.00-1.30)
== END | disposition home or self-care (01) ==
PROVIDERS: PCP Internal Medicine; Referring Provider Internal Medicine Rheumatology; Visit Provider Internal Medicine Rheumatology
DX: L40.59 Other psoriatic arthropathy (principal); Z79.899 Other long term (current) drug therapy
CPT/HCPCS: 36415; 80053

== ENCOUNTER → 2024-10-17 | Outpatient (CLI) | payer MEDICARE, BC, SELFPAY ==
--- OUTSIDE RECORDS SUMMARY | 2024-10-17 07:39 | XMS RPT_ITS | CCD ---
Author Organization [facility] Care Team Providers Care [employer] Teacher Name Role Phone Janice MARRUFO, Lauren Garcia Unavailable [phone] Breanna RN, Tana Hernandes Unavailable Unavailable Breanna RN, Tana M Unavailable Unavailable Hector RN, Korin M Unavailable Unavailabl cristofer Young RN, Korin M Unavailable Unavailabl cristofer Biswas MD, Barrett Botello Unavailable SUSIE Carlos, Tana Hernandes Unavailable Unavailable Baylis STUDENT, Zo S Unavailable [phone] SUSIE Carlos, Tana M Unavailable Unavailable SUSIE Young, Korin M Unavailable Unavailabigail Carlos RN, Tana M Unavailable Unavailable Janice MARRUFO, Lauren Garcia Unavailable [phone] MD True, Barrett Botello Unavailable SUSIE Young, Korin Hernandes Unavailable Unavailabigail Young RN, Korin M Unavailable UnavailGRACIA Cole Attending Unavailable GRACIA PATEL Primary Care Unavailable GRACIA PATEL Admitting Unavailable Dr. Melba Young Primary Care Provider [phone] Dr. Barrett Biswas Attending Provider [phone] Dr. Barrett Biswas Referring Provider [phone] Dr. Melba Young Referring Provider [phone] Olivia Carlos Attending Provider Unavailable Dr. Melba Young Primary Care Provider [phone] Dr. Barrett Biswas Attending Provider [phone] Melba Young Attending Provider [phone] Olivia Carlos Attending Provider Unavailable Hannah, Dr. Beltran Primary Care Provider [phone] Olegrant, Dr. Beltran Referring Provider [phone] MD Barrett Biswas Attending Provider Unavailable Hannah, Dr. Beltran Primary Care Provider [phone] Oleghe, Dr. Beltran Attending Provider [phone] Oleghe, Dr. Beltran Referring Provider [phone] [place], Dr. Beltran Primary Care Provider [phone] [place], Dr. Beltran Attending Provider [phone] Oleghe, Dr. Beltran Referring Provider [phone] Olivia Carlos Attending Provider Unavailable Hannah, Dr. Beltran Primary Care Provider [phone] Oleghe, Dr. Beltran Attending Provider [phone] Olegrant, Dr. Beltran Referring Provider [phone] Hannah, Dr. Beltran Referring Provider [phone] Dr. Barrett Biswas Primary Care Provider [phone] Dr. Barrett Biswas Attending Provider [phone] Dr. Melba Young Primary Care Provider [phone] Olegrant, Dr. Beltran Attending Provider [phone] Olivia Carlos Attending Provider Unavailable Hannah, Dr. Beltran Primary Care Provider [phone] Dr. Barrett Biwsas Attending Provider [phone] Dr. Melba Young Attending Provider [phone] Olegrant, Dr. Beltran Referring Provider [phone] Hannah, Dr. Beltran Primary Care Provider [phone] Dr. Barrett Biswas Attending Provider Unavailable Primary Care Provider Unavailabl e Hannah MARRUFO, Melba B Primary Care Provider [phone] OLEGHE, EFEWONGBE B Primary Care Unavailable Hannah MARRUFO, Dr. Beltran Primary Care Provider Hannha MARRUFO, Dr. Beltran Attending Provider [phone] Hannah MARRUFO, Dr. Beltran Referring Provider [phone] True MARRUFO, Dr. Hyde Attending Provider [phone] You MARRUFO, Dr. Brown Attending Provider You MARRUFO, Dr. Brown Referring Provider Hannah MARRUFO, Dr. Beltran Primary Care Provider Oleghe, Efewongbe Primary Care Unavailable Oleghe, Efewongbe Referring Unavailable Jayashree GAONA, Karolina Hernandes Attending Unavail able Oleghe, Efewongbe Primary Care Unavailable True, Barrett Attending Unavailable True, Barrett Attending Unavailable Oleghe, Efewongbe Primary Care Unavailable Oleghe, Efewongbe Primary Care Unavailable Oleghe, Efewongbe Referring Unavailable True, Moran Attending Unavailable True, Moran Attending Unavailable Oleghe, Efewongbe Primary Care Unavailable Oleghe, Efewongbe Primary Care Unavailable True, Moran Attending Unavailable Oleghe, Efewongbe Primary Care Unavailable Oleghe, Efewongbe Referring Unavailable NURSE, BIM Attending Unavailable Oleghe, Efewongbe Attending Unavailable Oleghe, Efewongbe Referring Unavailable Oleghe, Efewongbe Primary Care Unavailable Oleghe, Efewongbe Primary Care Unavailable Vellanki, Stephanie Attending Unavailable Vellanki, Stephanie Referring Unavailable Oleghe, Efewongbe Primary Care Unavailable Oleghe, Efewongbe Referring Unavailable Vellanki, Stephanie Consulting Unavailable Oleghe, Efewongbe Attending Unavailable Vellanki, Stephanie Referring Unavailable Oleghe, Efewongbe Primary Care Unavailable Vellanki, Stephanie Attending Unavailable Oleghe, Efewongbe Primary Care Unavailable Oleghe, Efewongbe Referring Unavailable Oleghe, Efewongbe Attending Unavailable Oleghe, Efewongbe Primary Care Unavailable Vellanki, Stephanie Referring Unavailable Vellanki, Stephanie Attending Unavailable Vellanki, Stephanie Attending Unavailable Vellanki, Stephanie Referring Unavailable Oleghe, Efewongbe Primary Care Unavailable Oleghe OLS, Efewongbe Referring Unavailabl e Oleghe, Efewongbe Primary Care Unavailable Oleghe, Efewongbe Attending Unavailable Vellanki, Stephanie Attending Unavailable Vellanki, Stephanie Referring Unavailable Oleghe, Efewongbe Primary Care Unavailable Oleghe, Efewongbe Primary Care Unavailable Oleghe, Efewongbe Referring Unavailable Oleghe, Efewongbe Attending Unavailable Oleghe, Efewongbe Primary Care Unavailable True Moran Attending Unavailable Medications Current Medications Medication Drug Class(es) Dates Sig (Normalized) Sig (Original) dicyclomine hydrochloride 10 mg oral capsule (3 sources) Anticholinergic Start: 03-20-2020 take 1 capsule by mouth every eight hours as needed dicyclomine (BENTYL) 10 mg capsule Take 1 capsule by mouth three times daily as needed (bowel spasm). 20 capsule 2 03/20/2020 Active folic acid 1 mg oral tablet (20 sources) Start: 04-07-2017 take 2 mg by mouth once daily Folic Acid Active 2 MG PO DAILY@08April 07, 2017 1:00am Start: 02-23-2017 take 2 tablets by mo [facility] once daily Folic Acid 1 MG tablet Active 2 mg PO DAILY@0800 April 07, 2017 1:00am Start: 01-20-2017 FOLIC ACID 1 M G TABS FOLIC ACID [id number] Lauren Camacho MD hydrOXYzine hydrochloride 25 mg oral tablet (14 sources) Antihistamine Start: 05-31-2022 End: 03-09-2024 take 1 tablet by mouth three times daily as needed for anxiety Hydroxyzine Hcl 25 mg tablet Active 25 mg PO THREE TIMES A DAY as needed for anxiety 90 March 09, 2024 4:25pm latanoprost 0.05 mg/ml ophthalmic solution (16 sources) Prostaglandin Analog Start: 08-15-2020 Latanoprost 0.005 % drops Active 1 NMA OPHTHALMIC DAILY August 15, 2020 12:00am take 1 drop(s) into the eye(s) once daily LATANOPROST OPHTHALMIC Use 1 Drop in eye s once daily. Active leucovorin 15 mg oral tablet (16 sources) Folate Analog Start: 08-20-2020 take 1 tablet by mouth once Leucovorin Calcium 15 mg tablet Active 15 mg PO ONCE August 20, 2020 12:00am methotrexate 2.5 mg oral tablet (20 sources) Folate Analog Metabolic Inhibitor Start: 04-07-2017 Methotrexate Sodium 2.5 MG tablet Active 12.5 mg PO HERNANDEZ April 07, 2017 1:00am Start: 04-07-2017 Methotrexate S odium Active 12.5 MG PO HERNANDEZ April 07, 2017 1:00am Start: 01-20-2017 METHOTREXATE 2 .5 MG TABS METHOTREXATE SODIUM [id number] Lauren Camacho MD take 1 tablet by mouth once meth otrexate 2.5 mg tablet Take 2.5 mg by mouth one time only. Take 6 tablets weekly. Active nitrofurantoin, macrocrystals 25 mg / nitrofurantoin, monohydrate 75 mg oral capsule (20 sources) Nitrofuran Antibacterial Start: 06-27-2024 End: 07-02-2024 take 1 capsule by mouth twice daily nitrofurantoin monohydrate and macrocrystal (MACROBID) 100 mg capsule Take 1 capsule by mouth two times a day for 5 days. 10 capsule 06/27/2024 07/02/2024 Active Start: 03-15-2024 End: 03-20-2024 take 1 capsule by mouth twice daily at mealtime nitrofurantoin monohydrate and macrocrystal (MACROBID) 100 mg capsule Take 1 capsule by mouth two times a day with meals for 5 days. 10 capsule 03/15/2024 03/20/2024 Active Start: 08-12-2010 End: 03-16-2012 take 1 tablet by mouth once daily NITROFURANTOIN MACROCRYSTAL 100 MG CAPS One tablet by mouth daily (is on for 6 months) NITROFURANTOIN MACROCRYSTAL [id number] Ankita Norris zolpidem tartrate 10 mg oral tablet (3 sources) gamma-Aminobutyric Acid-ergic Agonist Start: 02-28-2024 take 10 mg by mouth every twenty-four hours as needed zolpidem (AMBIEN) 10 mg Take 10 mg by mouth at bedtime as needed. 02/28/2024 Active Completed/Discontinued Medications Medication Drug Class(es) Dates Sig (Normalized) Sig (Original) alendronic acid 70 mg oral tablet (20 sources) Bisphosphonate Start: 08-20-2020 End: 05-22-2024 take 1 tablet by mouth every week Alendronate 70 mg tablet Discontinued 70 mg PO EVERY WEEK February 06, 2024 8:23am May 22, 2024 3:02pm aspirin 81 mg oral tablet (20 sources) Platelet Aggregation Inhibitor, Nonsteroidal Anti-inflammatory Drug Start: 05-01-2014 take 1 tablet by mouth once daily ASPIRIN 81 MG TABS One tablet by mouth daily ASPIRIN [id number] Barrett Biswas MD Start: 05-01-2014 End: 01-20-2017 take 1 tablet by mouth once daily ASPIRIN EC 81 MG TBEC One tablet by mouth daily ASPIRIN [id number] Lauren Camacho MD Start: 05-01-2014 take 1 tablet by jodie th once daily ASPIRIN 81 MG TABS One tablet by mouth daily ASPIRIN [id number] Barrett Biswas MD Calcium Carbonate / Vitamin D (20 sources) Start: 08-12-2010 take 1 tablet by mouth once daily CALCIUM CARBONATE-VITAMIN D 600-125 MG-UNIT TABS One tablet by mouth daily CALCIUM CARBONATE-VITAMIN D [id number] Ankita Greta Norris Start: 08-12-2010 End: 01-20-2017 take 1 tablet by mouth once daily CALCIUM CARBONATE-VITAMIN D 600-125 MG-UNIT TABS One tablet by mouth daily CALCIUM CARBONATE-VITAMIN D [id number] Lauren Camacho MD Start: 08-12-2010 End: 01-20-2017 take 1 tablet by mouth once daily CALCIUM CARBONATE-VITAMIN D 600-125 MG-UNIT TABS One tablet by mouth daily CALCIUM CARBONATE-VITAMIN D [id number] Lauren Camacho MD Start: 08-12-2010 take 1 tablet by jodie th once daily CALCIUM CARBONATE-VITAMIN D 600-125 MG-UNIT TABS One tablet by mouth daily CALCIUM CARBONATE-VITAMIN D [id number] Ankita Norris citalopram 20 mg oral tablet (20 sources) Serotonin Reuptake Inhibitor Start: 08-12-2010 End: 03-16-2012 take 1 tablet by mouth every other day CITALOPRAM HYDROBROMIDE 20 MG TABS 1 tablet by mouth every other day CITALOPRAM HYDROBROMIDE [id number] Barrett Biswas MD clopidogrel 75 mg oral tablet (20 sources) P2Y12 Platelet Inhibitor Start: 09-22-2016 End: 10-27-2016 take 1 tablet by mouth once daily PLAVIX 75 MG TABS One tablet by mouth daily CLOPIDOGREL BISULFATE [id number] Barrett Biswas MD estradiol 0.1 mg/ml vaginal cream (20 sources) Estrogen Start: 06-07-2018 End: 05-31-2022 Estradiol 0.01 % (0.1 mg/gram) cream Discontinued 0 VAGINAL .COMPLEX 42.5 July 02, 2020 1:00am May 31, 2022 2:01pm small amount as directed vaginal every other day X 4 weeks then twice a week; Start: 06-07-2018 End: 05-31-2022 Estradiol Discontinued 0 VAG INAL .COMPLEX 42.5 July 02, 2020 1:00am May 31, 2022 2:01pm small amount as directed vaginal every other day X 4 weeks then twice a week; Start: 02-09-2017 ESTRACE 0.01 % (0.1 mg/gram) vaginal cream insert 1 gram vaginally 3 NIGHTS PER WEEK 0 02/09/2017 Active Start: 02-09-2017 ESTRACE 0.1 MG /GM CREA small amount at vaginal opening 2-3 nights per week ESTRADIOL [id number] Zo S José Miguel STUDENT Start: 02-09-2017 ESTRACE 0.1 MG /GM CREA 1gm per vagina 3 nights per week ESTRADIOL [id number] Zo S José Miguel STUDENT eye drops (13 sources) Start: 07-02-2020 End: 08-15-2020 eye drops Discontinued EACH EYE July 02, 2020 11:42am Bruna 9th, 2021 12:08pm Start: 07-02-2020 End: 08-15-2020 eye drops Discontinued EACH EYE July 02, 2020 12:00am August 15, 2020 11:08am Start: 07-02-2020 End: 08-15-2020 eye drops Discontinued EACH EYE July 02, 2020 1:00am August 15, 2020 12:08pm hydroxychloroquine sulfate 200 mg oral tablet (20 sources) Antimalarial, Antirheumatic Agent Start: 03-16-2012 End: 01-20-2017 take 2 tablets by mouth once daily PLAQUENIL 200 MG TABS Two tablets by mouth daily HYDROXYCHLOROQUINE SULFATE [id number] Barrett Biswas MD Start: 03-01-2012 take 1 tablet by jodie th once daily hydroxychloroquine (PLAQUENIL) 200 mg ORAL tablet Take 200 mg by mouth once daily. 0 03/01/2012 Active metoprolol tartrate 25 mg oral tablet (20 sources) beta-Adrenergic Radha Start: 09-22-2016 End: 12-21-2016 take 1 tablet by mouth twice daily METOPROLOL TARTRATE 25 MG TABS One tablet by mouth twice daily METOPROLOL TARTRATE [id number] Linh Sanchez RN potassium chloride 20 meq extended release oral tablet (20 sources) Start: 09-23-2016 End: 01-20-2017 take 2 tablets by mouth once daily POTASSIUM CHLORIDE ER 20 MEQ CR-TABS Two tablets by mouth daily x 2 days. POTASSIUM CHLORIDE [id number] Barrett Biswas MD valACYclovir 1000 mg oral tablet (12 sources) Herpesvirus Nucleoside Analog DNA Polymerase Inhibitor, Herpes Simplex Virus Nucleoside Analog DNA Polymerase Inhibitor, Herpes Zoster Virus Nucleoside Analog DNA Polymerase Inhibitor Start: 01-20-2017 End: 02-09-2017 take 1 tablet by mouth once daily VALTREX 1 GM TABS One tablet by mouth daily VALACYCLOVIR HCL [id number] Lauren Camacho MD Start: 01-20-2017 take 1 tablet by jodie th once daily VALTREX 1 GM TABS One tablet by mouth daily VALACYCLOVIR HCL [id number] Lauren Camacho MD Problems Active Problems Problem Classification Problem Date Documented Da te Episodic/Chronic Acute and unspecified renal failure (9 sources) Injury of kidney; Translations: [Acute kidney failure, unspecified] 06-21-2022 Episodic Anxiety disorders (13 sources) Anxiety; Translations: [Anxiety disorder, unspecified] 05-31-2022 Chronic Cardiac dysrhythmias (20 sources) Atrial fibrillation; Translations: [Paroxysmal atrial fibrillation] Onset: 08-12-2010 08-12-2010 Chronic Coagulation and hemorrhagic disorders (20 sources) Heterozygous Factor V Leiden mutation; Translations: [Activated protein C resistance] 08-15-2020 Chronic Complication of device; implant or graft (13 sources) Malfunction of cardiac pacemaker; Translations: [Breakdown (mechanical) of cardiac pulse generator (battery), initial encounter] 04-11-2017 Episodic Conduction disorders (20 sources) Cardiac pacemaker in situ; Translations: [Dwpio-Uoixozbqi-Lkc te pattern] Onset: 03-28-2008 08-12-2010 Chronic Disorders of lipid metabolism (11 sources) Hyperlipidemia; Translations: [Hyperlipidemia, unspecified] Onset: 04-26-2014 11-22-2022 Chronic Genitourinary symptoms and ill-defined conditions (1 source) Scalding pain on urination ; Translations: [Dysuria] 06-27-2024 Episodic Glaucoma (13 sources) Glaucoma; Translations: [Unspecified glaucoma] 08-15-2020 Chronic Menopausal disorders (4 sources) Atrophic vaginitis; Translations: [Postmenopausal atrophic vaginitis] Onset: 02-09-2017 02-09-2017 Chronic Osteoporosis (20 sources) Osteoporosis; Translations: [Age-related osteoporosis without current pathological fracture] Onset: 10-11-2024 Chronic Other diseases of bladder and urethra (3 sources) Disorder of bladder; Translations: [Bladder disorder, unspecified] Onset: 12-05-2008 12-05-2008 Chronic Other diseases of bladder and urethra (2 sources) Overactive bladder; Translations: [Overactive bladder] 01-13-2024 Chronic Other gastrointestinal disorders (3 sources) Irritable bowel syndrome; Translations: [Mixed irritable bowel syndrome] Onset: 03-20-2020 03-20-2020 Chronic Other gastrointestinal disorders (12 sources) Chronic constipation; Translations: [Other constipation] 11-25-2021 Episodic Other gastrointestinal disorders (6 sources) Other constipation; Translations: [Constipation, unspecified] Episodic Other gastrointestinal disorders (3 sources) Constipation; Translations: [Constipation, unspecified] 01-13-2024 Episodic Other inflammatory condition of skin (1 source) Other psoriatic arthropathy; Translations: [Other psoriatic arthropathy] Onset: 08-29-2024 Chronic Residual codes; unclassified (4 sources) History of eye AND/OR adnexa surgery; Translations: [Other specified postprocedural states] 11-22-2022 Episodic Comment on above: CATARACT SURGERY (R) 09/2022; (L) 10/2022 Rheumatoid arthritis and related disease (20 sources) Rheumatoid arthritis; Translations: [Rheumatoid arthritis, unspecified] Chronic Urinary tract infections (2 sources) Acute urinary tract infection; Translations: [Urinary tract infection, site not specified] 03-15-2024 Episodic Past or Other Problems Problem Classification Problem Date Documented Da te Episodic/Chronic Cardiac dysrhythmias (19 sources) Palpitations; Translations: [Palpitations] Onset: 1 08-12-2010 Episodic Heart valve disorders (10 sources) Heart murmur; Translations: [Cardiac murmur, unspecified] Onset: 4 11-22-2022 Episodic Immunizations and screening for infectious disease (4 sources) Encounter for immunization; Translations: [Need for prophylactic vaccination and inoculation against unspecified single disease] Onset: 4 03-14-2023 Episodic Nonspecific chest pain (19 sources) Chest pain, unspecified; Translations: [Chest pain, unspecified] Onset: 1 08-12-2010 Episodic Other circulatory disease (7 sources) Carotid bruit; Translations: [Other specified symptoms and signs involving the circulatory and respiratory systems] Onset: 1 08-12-2010 Episodic Other connective tissue disease (3 sources) Lateral epicondylitis; Translations: [Lateral epicondylitis, unspecified elbow] Onset: 8 03-28-2008 Episodic Other female genital disorders (8 sources) Lesion of vulva; Translations: [Other specified noninflammatory disorders of vulva and perineum] Onset: 7 01-20-2017 Episodic Other screening for suspected conditions (not mental disorders or infectious disease) (20 sources) Electrocardiogram abnormal; Translations: [Carotid bruit] Onset: 1 09-22-2016 Episodic Other screening for suspected conditions (not mental disorders or infectious disease) (20 sources) Patient encounter status; Translations: [Encounter for screening for malignant neoplasm of colon] Onset: 6 04-11-2017 Episodic Phlebitis; thrombophlebitis and thromboembolism (19 sources) History of thrombophlebitis; Translations: [Personal history of thrombophlebitis] Onset: 1 08-12-2010 Episodic Residual codes; unclassified (19 sources) Family history of stroke; Translations: [Family history of stroke] 05-01-2014 Episodic Residual codes; unclassified (3 sources) History of clinical finding in subject; Translations: [Personal history of other specified conditions] Onset: 2 03-01-2012 Episodic Residual codes; unclassified (3 sources) Family history of Factor V Leiden mutation; Translations: [Family history of diseases of the blood and blood-forming organs and certain disorders involving the immune mechanism] Onset: 7 08-12-2016 Episodic Results Test Name Value Interpretation Reference Range [facility] Metabolic [facility] 08-27-2024 Albumin [Mass/Vol] 4.2 g/dL Normal 3.4-4.8 [facility] Comment on above: Performed By: #### L 500.4050 ####[facility] [address] [facility] [address] [place], [address] Albumin/Globulin [Mass ratio] 1.6 {ratio} Normal 0.9-2.4 [facility] Comment on above: Performed By: #### L 500.4050 ####[facility] [address] [place], [address] ALK PHOS 65 U/L Normal 35-104 [facility] Comment on above: Performed By: #### L 500.4050 ####[facility] [address] [place], [address] ALT [Catalytic activity/Vol] 23 U/L Normal <=34 [facility] Comment on above: Performed By: #### L 500.4050 ####[facility] [address] [place], [address] AST [Catalytic activity/Vol] 24 U/L Normal <=31 [facility] Comment on above: Performed By: #### L 500.4050 ####[facility] [address] [place], [address] Bilirubin [Mass/Vol] 0.27 mg/dL Normal 0.00-1.30 [facility] Comment on above: Performed By: #### L 500.4050 ####[facility] [address] [place], [address] BUN/CRE 26.4 RATIO High 10-20 [facility] Comment on above: Performed By: #### L 500.4050 ####[facility] [address] [place], [address] Calcium [Mass/Vol] 9.6 mg/dL Normal 7.6-11.0 [facility] Comment on above: Performed By: #### L 500.4050 ####[facility] [address] [place], [address] Chloride [Moles/Vol] 108 mmol/L Normal 98-108 [facility] Comment on above: Performed By: #### L 500.4050 ####[facility] [address] [place], [address] CO2 [Moles/Vol] 26.5 mmol/L Normal 21.0-32.0 [facility] Comment on above: Performed By: #### L 500.4050 ####[facility] [address] [place], [address] Creatinine [Mass/Vol] 0.81 mg/dL Normal 0.70-1.20 [facility] Comment on above: Performed By: #### L 500.4050 ####[facility] [address] [place], [address] GAP 10 Normal 5-15 [facility] Comment on above: Performed By: #### L 500.4050 ####[facility] [address] [place], [address] GFR/1.73 sq M.predicted among non-blacks MDRD (S/P/Bld) [Vol rate/Area] 79 mL/min/{1.73_m2} Normal >60 [facility] Comment on above: Result Comment: mL/m in/1.73m2 CKD-EPI Creatinine Equation (2020) Performed By: #### L 500.4050 ####[facility] [address] [place], [address] Globulin (S) [Mass/Vol] 2.7 g/dL Normal 2.2-4.2 [facility] Comment on above: Performed By: #### L 500.4050 ####[facility] [address] [place], [address] Glucose [Mass/Vol] 103 mg/dL High 70-99 [facility] Comment on above: Performed By: #### L 500.4050 ####[facility] [address] [place], [address] Potassium [Moles/Vol] 3.9 mmol/L Normal 3.3-5.1 [facility] Comment on above: Performed By: #### L 500.4050 ####[facility] [address] [place], [address] Sodium [Moles/Vol] 144 mmol/L Normal 133-145 [facility] Comment on above: Performed By: #### L 500.4050 ####[facility] [address] [place], [address] T PROT 6.8 g/dL Normal 5.9-8.4 [facility] Comment on above: Performed By: #### L 500.4050 ####[facility] [address] [place], [place], [address] Urea nitrogen [Mass/Vol] 21 mg/dL High 08-25 [facility] Comment on above: Performed By: #### L 500.4050 ####[facility] [address] [place], [place], [address] Liveron 08-22-2024 Liver [facility] Imaging Services [address] [place], [place] [address] Liver MR#: [id number] Acct: [id number] Name: GISEL SAWYER Rep #: [id number] : [id number] F [id number] From: Cheikh Mahajan MD PCP: Dr. Melba Young MD Status: REG CLI Study: Liver Date of Exam: 08/22/24 Exam# [id number] Ordering Dr: Stephanie Orta MD PROCEDURE: LIVER (USLI), 08/22/2024 REASON FOR EXAM: ELEVATED LIVER ENZYMES COMPARISON: None FINDINGS: Liver: Unremarkable. 12.2 cm in length. Gallbladder: Unremarkable. Reportedly, sonographic Steen's was negative. Biliary tree: Unremarkable. CBD measures 4 mm. Pancreas: Partially obscured by shadowing bowel gas, grossly unremarkable as visualized. Right kidney: Unremarkable. 10.4 cm in length. Other: No visualized free fluid. US/Liver IMPRESSION: 1. Grossly unremarkable sonographic appearance of the hepatic parenchyma. No biliary dilatation. 2. Additional description as above. Reading Location: [facility] CC: Dr. Melba Young MD; Dr. Stephanie Orta MD Web Master: Signed Normal [facility] Absolute neutrophil countOrd ered By: Stephanie Orta on 07-31-2024 Neutrophils (Bld) [#/Vol] 3.7 10*3/uL 2.0-7.7 [facility] Anion gap in Serum or Plasma Ordered By: Stephanie Orta on 07-31-2024 Anion gap [Moles/Vol] 8 mmol/L 5-15 [facility] BUN/creatinine ratioOrdered By: Stephanie You on 07-31-2024 Urea nitrogen/Creatinine [Mass ratio] 30.9 mg/mg High 10-20 [facility] [facility] Basophil percentageOrdered B y: Stephanie Orta on 07-31-2024 Basophils/100 WBC (Bld) 0.7 % 0-1 [facility] Bilirubin, totalOrdered By: Stephanie Orta on 07-31-2024 Bilirubin [Mass/Vol] 0.31 mg/dL 0.00-1.30 [facility] CBC W/Diff, Automatedon 07-08 Absolute Lymph 2.31 X10 3/uL Normal 0.83-4.51 [facility] Comment on above: Performed By: #### L 500.4050, L100.0100 ####[facility] [address] [place], [address] Absolute Neut 3.7 X10 3/uL Normal 2.0-7.7 [facility] Comment on above: Performed By: #### L 500.4050, L100.0100 ####[facility] [address] [place], [address] Basophils/100 WBC (Bld) 0.7 % Normal 0-1 [facility] Comment on above: Performed By: #### L 500.4050, L100.0100 ####[facility] [address] [place], [address] Eosinophils/100 WBC (Bld) 2.2 % Normal 0-5 [facility] Comment on above: Performed By: #### L 500.4050, L100.0100 ####[facility] [address] [place], [address] Erythrocyte distribution width (RBC) [Ratio] 14.4 % Normal 11.6-14.6 [facility] Comment on above: Performed By: #### L 500.4050, L100.0100 ####[facility] [address] [place], [address] Hematocrit (Bld) [Volume fraction] 40.9 % Normal 37-47 [facility] Comment on above: Performed By: #### L 500.4050, L100.0100 ####[facility] [address] [place], [address] Hemoglobin (Bld) [Mass/Vol] 13.4 g/dL Normal 12.0-15.0 [facility] Comment on above: Performed By: #### L 500.4050, L100.0100 ####[facility] [address] [place], [address] IG% 0.100 Normal 0.0-0.9 [facility] Comment on above: Result Comment: IG% - Immature Granulocytes (promyelocytes, myelocytes and metamyelocytes) > 1% indicates that a LEFT SHIFT is Present. Performed By: #### L 500.4050, L100.0100 ####[facility] [address] [place], [address] Lymphocytes/100 WBC (Bld) 33.2 % Normal 19-41 [facility] Comment on above: Performed By: #### L 500.4050, L100.0100 ####[facility] [address] [place], [address] MCH (RBC) [Entitic mass] 31.0 pg Normal 27.0-32.0 [facility] Comment on above: Performed By: #### L 500.4050, L100.0100 ####[facility] [address] [place], [address] MCHC (RBC) [Mass/Vol] 32.8 g/dL Normal 32-36 [facility] Comment on above: Performed By: #### L 500.4050, L100.0100 ####[facility] [address] [place], [address] MCV (RBC) [Entitic vol] 94.7 fL Normal 81-99 [facility] Comment on above: Performed By: #### L 500.4050, L100.0100 ####[facility] [address] [place], [address] Monocytes/100 WBC (Bld) 10.1 % High 0-10 [facility] Comment on above: Performed By: #### L 500.4050, L100.0100 ####[facility] [address] [place], [address] Neutrophils/100 WBC (Bld) 53.7 % Normal 47-70 [facility] Comment on above: Performed By: #### L 500.4050, L100.0100 ####[facility] [address] [place], [address] Nucleated RBC (Bld) [#/Vol] 0 10*3/uL Normal 0-5 [facility] Comment on above: Performed By: #### L 500.4050, L100.0100 ####[facility] [address] [place], [address] Platelet mean volume (Bld) [Entitic vol] 11.2 fL Normal 6.2-12.0 [facility] Comment on above: Performed By: #### L 500.4050, L100.0100 ####[facility] [address] [place], [address] Platelets (Bld) [#/Vol] 188 10*3/uL Normal 150-450 [facility] Comment on above: Performed By: #### L 500.4050, L100.0100 ####[facility] [address] [place], [address] RBC (Bld) [#/Vol] 4.32 10*6/uL Normal 4.2-5.4 [facility] Comment on above: Performed By: #### L 500.4050, L100.0100 ####[facility] [address] [place], [address] RDW SD 50.4 fl High 35.1-43.9 [facility] Comment on above: Performed By: #### L 500.4050, L100.0100 ####[facility] [address] [place], [address] WBC (Bld) [#/Vol] 7.0 10*3/uL Normal 4.4-11.0 [facility] Comment on above: Performed By: #### L 500.4050, L100.0100 ####[facility] [address] [place], [address] Carbon dioxide, total [Moles /volume] in Central venous bloodOrdered By: Stephanie Orta on 07-31-2024 CO2 [Moles/Vol] 26.2 mmol/L 21.0-32.0 [facility] Chloride assayOrdered By: Jimenez Orta on 07-31-2024 Chloride [Moles/Vol] 107 mmol/L 98-108 [facility] Comprehensive Metabolic Prof ilon 07-31-2024 Albumin [Mass/Vol] 4.2 g/dL Normal 3.4-4.8 [facility] Comment on above: Performed By: #### L 500.4050, L100.0100 ####[facility] [address] [place], [address] Albumin/Globulin [Mass ratio] 1.5 {ratio} Normal 0.9-2.4 [facility] Comment on above: Performed By: #### L 500.4050, L100.0100 ####[facility] [address] [place], [address] ALK PHOS 70 U/L Normal 35-104 [facility] Comment on above: Performed By: #### L 500.4050, L100.0100 ####[facility] [address] [place], [address] ALT [Catalytic activity/Vol] 46 U/L High <=34 [facility] Comment on above: Performed By: #### L 500.4050, L100.0100 ####[facility] [address] [place], [address] AST [Catalytic activity/Vol] 30 U/L Normal <=31 [facility] Comment on above: Performed By: #### L 500.4050, L100.0100 ####[facility] [address] [place], [address] Bilirubin [Mass/Vol] 0.31 mg/dL Normal 0.00-1.30 [facility] Comment on above: Performed By: #### L 500.4050, L100.0100 ####[facility] [address] [place], [address] BUN/CRE 30.9 RATIO High 10-20 [facility] Comment on above: Performed By: #### L 500.4050, L100.0100 ####[facility] [address] [place], [address] Calcium [Mass/Vol] 9.9 mg/dL Normal 7.6-11.0 [facility] Comment on above: Performed By: #### L 500.4050, L100.0100 ####[facility] [address] [place], [address] Chloride [Moles/Vol] 107 mmol/L Normal 98-108 [facility] Comment on above: Performed By: #### L 500.4050, L100.0100 ####[facility] [address] [place], [address] CO2 [Moles/Vol] 26.2 mmol/L Normal 21.0-32.0 [facility] Comment on above: Performed By: #### L 500.4050, L100.0100 ####[facility] [address] [place], [address] Creatinine [Mass/Vol] 0.74 mg/dL Normal 0.70-1.20 [facility] Comment on above: Performed By: #### L 500.4050, L100.0100 ####[facility] [address] [place], [address] GAP 8 Normal 5-15 [facility] Comment on above: Performed By: #### L 500.4050, L100.0100 ####[facility] [address] [place], [address] GFR/1.73 sq M.predicted among non-blacks MDRD (S/P/Bld) [Vol rate/Area] 88 mL/min/{1.73_m2} Normal >60 [facility] Comment on above: Result Comment: mL/m in/1.73m2 CKD-EPI Creatinine Equation (2020) Performed By: #### L 500.4050, L100.0100 ####[facility] [address] [place], [address] Globulin (S) [Mass/Vol] 2.8 g/dL Normal 2.2-4.2 [facility] Comment on above: Performed By: #### L 500.4050, L100.0100 ####[facility] [address] [place], [address] Glucose [Mass/Vol] 89 mg/dL Normal 70-99 [facility] Comment on above: Performed By: #### L 500.4050, L100.0100 ####[facility] [address] [place], [address] Potassium [Moles/Vol] 4.0 mmol/L Normal 3.3-5.1 [facility] Comment on above: Performed By: #### L 500.4050, L100.0100 ####[facility] [address] [place], [address] Sodium [Moles/Vol] 141 mmol/L Normal 133-145 [facility] Comment on above: Performed By: #### L 500.4050, L100.0100 ####[facility] [address] [place], [address] T PROT 7.0 g/dL Normal 5.9-8.4 [facility] Comment on above: Performed By: #### L 500.4050, L100.0100 ####[facility] [address] [place], [address] Urea nitrogen [Mass/Vol] 23 mg/dL High 4-19 [facility] Comment on above: Performed By: #### L 500.4050, L100.0100 ####[facility] [address] [place], [address] Eosinophil percentageOrdered By: Stephanie Orta on 07-31-2024 Eosinophils/100 WBC (Bld) 2.2 % 0-5 [facility] Erythrocyte distribution wid th ratioOrdered By: Stephanie Orta on 07-31-2024 Erythrocyte distribution width (RBC) [Ratio] 14.4 % 11.6-14.6 [facility] Erythrocyte distribution wid th standard deviationOrdered By: Stephanie Orta on 07-31-2024 Erythrocyte distribution width (RBC) [Entitic vol] 50.4 fL High 35.1-43.9 [facility] GFR/1.73 sq M.predicted guy g non-blacks MDRD (S/P/Bld) [Vol rate/Area]Ordered By: Stephanie Orta on 07-31-2024 Estimated GFR (MDRD) Non-Af Amer 88 >60 [facility] Comment on above: mL/min/1.73m2 CKD-EP I Creatinine Equation (2020) Hematocrit Auto (Bld) [Volum e fraction]Ordered By: Stephanie Orta on 07-31-2024 Hematocrit (Bld) [Volume fraction] 40.9 % 37-47 [facility] Hemoglobin measurementOrdere d By: Stephanie Orta on 07-31-2024 Hemoglobin (Bld) [Mass/Vol] 13.4 g/dL 12.0-15.0 [facility] Immature granulocytes/100 WB C Auto (Bld)Ordered By: Stephanie Orta on 07-31-2024 Immature granulocytes/100 WBC (Bld) 0.100 % 0.0-0.9 [facility] Comment on above: IG% - Immature Granu locytes (promyelocytes, myelocytes and metamyelocytes) > 1% indicates that a LEFT SHIFT is Present. Laboratory - Chemistry and C hemistry - challengeOrdered By: Stephanie Orta on 07-31-2024 AST [Catalytic activity/Vol] 30 U/L <32 [facility] Lymphocytes Auto (Unsp spec) [#/Vol]Ordered By: Stephanie Orta on 07-31-2024 Lymphocytes (Bld) [#/Vol] 2.31 10*3/uL 0.83-4.51 [facility] Lymphocytes/100 WBC Auto (Un sp spec)Ordered By: Stephanie Orta on 07-31-2024 Lymphocytes/100 WBC (Bld) 33.2 % 19-41 [facility] MCV (mean corpuscular volume ) determinationOrdered By: Stephanie Orta on 07-31-2024 MCV (RBC) [Entitic vol] 94.7 fL 81-99 [facility] Mean corpuscular hemoglobin (MCH) determinationOrdered By: Stephanie Orta on 07-31-2024 MCH (RBC) [Entitic mass] 31.0 pg 27.0-32.0 [facility] Mean corpuscular hemoglobin concentration (MCHC) determinationOrdered By: Stephanie Orta on 07-31-2024 MCHC (RBC) [Mass/Vol] 32.8 g/dL 32-36 [facility] Mean platelet volume determi nationOrdered By: Stephanie Orta on 07-31-2024 Platelet mean volume (Bld) [Entitic vol] 11.2 fL 6.2-12.0 [facility] Monocyte percentageOrdered B y: Stephanie Orta on 07-31-2024 Monocytes/100 WBC (Bld) 10.1 % High 0-10 [facility] Neutrophil percentageOrdered By: Stephanie Orta on 07-31-2024 Neutrophils/100 WBC (Bld) 53.7 % 47-70 [facility] Nucleated red blood cell per centageOrdered By: Stephanie Orta on 07-31-2024 Nucleated RBC/100 WBC (Bld) [Ratio] 0 % 0-5 [facility] Platelet countOrdered By: Jimenez Orta on 07-31-2024 Platelets (Bld) [#/Vol] 188 10*3/uL 150-450 [facility] Potassium (Unsp spec) [Mass/ Vol]Ordered By: Stephanie Orta on 07-31-2024 Potassium [Moles/Vol] 4.0 mmol/L 3.3-5.1 [facility] RBC Auto (Bld) [#/Vol]Ordere d By: Stephanie Orta on 07-31-2024 RBC (Bld) [#/Vol] 4.32 10*6/uL 4.2-5.4 [facility] Serum creatinine measurement (mass/volume)Ordered By: Stephanie Orta on 07-31-2024 Creatinine [Mass/Vol] 0.74 mg/dL 0.70-1.20 [facility] Serum globulin measurementOr dered By: Stephanie Orta on 07-31-2024 Globulin (S) [Mass/Vol] 2.8 g/dL 2.2-4.2 [facility] Serum glucose measurement (m ass/volume)Ordered By: Stephanie Orta on 07-31-2024 Glucose [Mass/Vol] 89 mg/dL 70-99 [facility] Serum or plasma alanine bradford otransferase (ALT) measurementOrdered By: Stephanie Orta on 07-31-2024 ALT [Catalytic activity/Vol] 46 U/L High <35 [facility] Serum or plasma albumin blessing urement (mass/volume)Ordered By: Stephanie Orta on 07-31-2024 Albumin [Mass/Vol] 4.2 g/dL 3.4-4.8 [facility] Serum or plasma albumin/glob ulin mass ratioOrdered By: Stephanie Orta on 07-31-2024 Albumin/Globulin [Mass ratio] 1.5 {ratio} 0.9-2.4 [facility] Serum or plasma alkaline mario sphatase measurementOrdered By: Stephanie Orta on 07-31-2024 ALP [Catalytic activity/Vol] 70 U/L 35-104 [facility] Serum or plasma calcium blessing urement (mass/volume)Ordered By: Stephanie Orta on 07-31-2024 Calcium [Mass/Vol] 9.9 mg/dL 7.6-11.0 [facility] Serum or plasma urea nitroge n measurement (mass/volume)Ordered By: Stephanie Orta on 07-31-2024 Urea nitrogen [Mass/Vol] 23 mg/dL High 4-19 [facility] Sodium levelOrdered By: Jennifer Orta on 07-31-2024 Sodium [Moles/Vol] 141 mmol/L 133-145 [facility] Total proteinOrdered By: Maria Del Rosario Orta on 07-31-2024 Protein [Mass/Vol] 7.0 g/dL 5.9-8.4 [facility] White blood cell (WBC) count Ordered By: Stephanie Orta on 07-31-2024 WBC (Bld) [#/Vol] 7.0 10*3/uL 4.4-11.0 [facility] Bacteria Ur Culton Bacteria identified Cx Nom (U) ORGANISM ID: 1 >=100,000 CFU/ml Escherichia coli ORGANISM ID: 1 (ESCHERICHIA COLI) ANTIBIOTIC INTERPRETATION GLENROY STATUS REFERENCE RANGE Ampicillin S <=2 F Susceptible <=8 , Intermediate >8 , Resistant >16 Cefazolin S <=4 F Susceptible 0-16 , Intermediate <0 or >16 , Resistant >16 For uncomplicated urinary tract infections, cefazolin results can be used to predict susceptibility or resistance to cephalexin. Ceftriaxone S <=1 F Susceptible <=1 , Intermediate >1 , Resistant >=4 Cefepime S <=1 F Susceptible <=2 , Susceptible-Dose Dependent >2 , Resistant >=16 Ertapenem S <=0.5 F Susceptible <=0.5 , Intermediate >.5 , Resistant >1 Meropenem S <=0.25 F Susceptible <=1 , Intermediate >1 , Resistant >2 Ampicillin/Sulbact S <=2 F Susceptible <=8 , Intermediate >8 , Resistant >16 Piperacillin/Tazoba c S <=4 F Susceptible <16 , Susceptible-Dose Dependent >=16 , Resistant >=32 Gentamicin S <=1 F Susceptible <=2 , Intermediate >2 , Resistant >=8 Tobramycin S <=1 F Susceptible <4 , Intermediate >=4 , Resistant >=8 Trimeth sulfameth S <=20 F Susceptible <=40 , Resistant >40 Ciprofloxacin S <=0.25 F Susceptible <0.5 , Intermediate >=.5 , Resistant >=1 Nitrofurantoin S <=16 F Susceptible <=32 , Intermediate >32 , Resistant >64 Abnormal [facility] Comment on above: Performed By: #### 6 30-4 #### [facility] CLIA [id number] [address] [place] [address] [place] 06-27-2024 CNOV Office Visit (UCWSTR) ---- GISEL SAWYER ([id number]) 1955 F Date Time Provider Department 06/27/24 4:45 PM [facility]DR[facility] During your visit today, we recorded the following information about you: Temperature Pulse Respiration Blood pressure 97.6 degrees 70/minute 18/minute 138/82 Weight 55.5 kg Bhupendra Figueroa, JIMENEZ 06/27/2024 4:40 PM Signed This note was created using [employer]. Subjective Gisel Sawyer is a 69 year old female. HPI 69-year-old female presents for UTI symptoms. Patient has had symptoms on and off for about a week. She has urgency, frequency, bladder pressure. She denies any blood in the urine, back pain, abdominal pain, fevers or vomiting. She has had a UTI in the past and this feels similar. She did take care, [id number] a few days ago which did help for short time. No other complaint. PAST MEDICAL HISTORY Diagnosis Date Complex endometrial hyperplasia with atypia Diffuse cystic mastopathy Diverticulosis of colon (without mention of hemorrhage) Internal hemorrhoids without mention of complication PMH - PAST MEDICAL HISTORY OF heart condition WPW PMH - PAST MEDICAL HISTORY OF pacemaker Rheumatoid arthritis (HCC) PAST SURGICAL HISTORY Procedure Laterality Date BIOPSY BREAST OPEN INCISIONAL Bx of breast, incisional, left breast DELIVERY ONLY , low cervical x 2 COLONOSCOPY FLX DX W/COLLJ SPEC WHEN PFRMD 01/24/08 COLONOSCOPY FLX DX W/COLLJ SPEC WHEN PFRMD 04/11/2017 repeat 10 years DILATION AND CURETTAGE DXAND/THER NONOBSTETRIC x 2 PACEMAKER IMPLANT 04/2016 Pacemaker changed out PRTL THYROID LOBECTOMY UNI W/WO ISTHMUSECTOMY TOTAL ABDOMINAL HYSTERECT W/WO RMVL TUBE OVARY 02/23/2007 focal complex endometrial hyperplasia with atypia ALLERGIES Patient has no known allergies. MEDICATIONS alendronate (FOSAMAX) 70 mg tablet Take 1 tablet by mouth one time a week. hydrOXYzine HCl (ATARAX) 25 mg tablet Take 25 mg by mouth three times a day as needed. zolpidem (AMBIEN) 10 mg Take 10 mg by mouth at bedtime as needed. LATANOPROST OPHTHALMIC Use 1 Drop in eyes once daily. leucovorin (LEUCOVORIN) 15 mg tablet Take 15 mg by mouth one time a week. folic acid 1 mg tablet Take 2 mg by mouth once daily. methotrexate 2.5 mg tablet Take 2.5 mg by mouth one time only. Take 6 tablets weekly. nitrofurantoin monohydrate and macrocrystal (MACROBID) 100 mg capsule Take 1 capsule by mouth two times a day for 5 days. dicyclomine (BENTYL) 10 mg capsule Take 1 capsule by mouth three times daily as needed (bowel spasm). (Patient not taking: Reported on 03/15/2024) ESTRACE 0.01 % (0.1 mg/gram) vaginal cream insert 1 gram vaginally 3 NIGHTS PER WEEK (Patient not taking: Reported on 03/15/2024) hydroxychloroquine (PLAQUENIL) 200 mg ORAL tablet Take 200 mg by mouth once daily. (Patient not taking: Reported on 03/15/2024) FAMILY HISTORY Problem Relation Age of Onset Stroke Mother Thyroid Mother Osteoporosis Mother Hyperlipidemia Mother Coronary Artery Disease Father Arthritis Father Heart Father Open Heart Surgery Social History Tobacco Use Smoking status: Never Smokeless tobacco: Never Substance Use Topics Alcohol use: Yes Comment: OCCASIONALLY Drug use: No Review of Systems Constitutional: Negative for chills and fever. HENT: Negative for congestion, ear pain and sore throat. Respiratory: Negative for cough and shortness of breath. Cardiovascular: Negative for chest pain. Gastrointestinal: Negative for abdominal pain, diarrhea and vomiting. Genitourinary: Positive for frequency and urgency. Negative for dysuria, vaginal bleeding and vaginal discharge. Objective BP 138/82 Pulse 70 Temp 36.4 ?C (97.6 ?F) (Tympanic) Resp 18 Wt 55.5 kg (122 lb 5.7 oz) LMP 12/22/2006 SpO2 98% BMI 19.16 kg/m? Physical Exam Vitals and nursing note reviewed. Constitutional: General: She is not in acute distress. Appearance: Normal appearance. She is not toxic-appearing. HENT: Nose: Nose normal. Mouth/Throat: Mouth: Mucous membranes are moist. Eyes: Conjunctiva/sclera: Conjunctivae normal. Cardiovascular: Rate and Rhythm: Normal rate and regular rhythm. Pulmonary: Effort: Pulmonary effort is normal. Breath sounds: Normal breath sounds. Abdominal: General: Abdomen is flat. Palpations: Abdomen is soft. Tenderness: There is no abdominal tenderness. There is no right CVA tenderness, left CVA tenderness, guarding or rebound. Skin: General: Skin is warm and dry. Neurological: Mental Status: She is alert. Assessment and Plan ASSESSMENT/PLAN: 1. Acute UTI - ICD9: 599.0, ICD10: N39.0 (primary diagnosis) acute - UA positive for karen esterase, hematuria, and nitrates - Send urine for culture - Begin treatment with Macrobid 100 mg BID for 5 days - Patient education for prevention given 2. B (more content not included)... Normal [facility] UA DIP, URINE (POC)on 2024 BILIRUBIN UA (POCT) Negative Negative [facility] CLARITY UA (POCT) Cloudy [facility] COLOR UA (POCT) Yellow [facility] GLUCOSE UA (POCT) Negative Negative mg/dL [facility] Hemoglobin Ql (U) Trace-intact Abnormal Negative [facility] Interpretation and review of laboratory results Abnormal [facility] KETONE UA (POCT) Trace Negative mg/dL [facility] LEUKOCYTES UA (POCT) Small Abnormal Negative [facility] NITRITE UA (POCT) Positive Abnormal Negative [facility] PH UA (POCT) 5.5 4.5 - 8.0 [facility] Protein Ql (U) Negative Negative mg/dL [facility] SPECIFIC GRAVITY UA (POCT) >=1.030 1.005 - 1.030 [facility] UROBILINOGEN UA (POCT) 0.2 Nicole l E.U./dL [facility] Location:[address], [place], [place], [id number] [place] [address] POINT OF CARE [facility] Absolute neutrophil countOrd ered By: Stephanie Orta on 05-07-2024 Neutrophils (Bld) [#/Vol] 4.2 10*3/uL 2.0-7.7 [facility] Albumin to globulin ratioOrd ered By: Stephanie Orta on 05-07-2024 Albumin/Globulin [Mass ratio] 1.1 {ratio} 0.9-2.4 [facility] Basophil percentageOrdered B y: Stephanie Orta on 05-07-2024 Basophils/100 WBC (Bld) 0.7 % 0-1 [facility] Bilirubin, totalOrdered By: Stephanie Orta on 05-07-2024 Bilirubin [Mass/Vol] 0.30 mg/dL 0.20-1.00 [facility] Comment on above: For patients on eltr ombopag therapy, use of Dimension [place] TBIL is not recommended. Blood urea nitrogen (BUN)/cr eatinine ratioOrdered By: Stephanie Orta on 05-07-2024 Urea nitrogen/Creatinine [Mass ratio] 21.8 mg/mg High - [facility] CBC W/Diff, Automatedon 04-10 Absolute Lymph 2.05 X10 3/uL Normal 0.83-4.51 [facility] Comment on above: Performed By: #### L 100.0100, L500.4050 ####[facility] [address] [place], [address] Absolute Neut 4.2 X10 3/uL Normal 2.0-7.7 [facility] Comment on above: Performed By: #### L 100.0100, L500.4050 ####[facility] [address] [place], [address] Basophils/100 WBC (Bld) 0.7 % Normal 0-1 [facility] Comment on above: Performed By: #### L 100.0100, L500.4050 ####[facility] [address] [place], [address] Eosinophils/100 WBC (Bld) 1.4 % Normal 0-5 [facility] Comment on above: Performed By: #### L 100.0100, L500.4050 ####[facility] [address] [place], [address] Erythrocyte distribution width (RBC) [Ratio] 13.6 % Normal 11.6-14.6 [facility] Comment on above: Performed By: #### L 100.0100, L500.4050 ####[facility] [address] [place], [address] Hematocrit (Bld) [Volume fraction] 38.5 % Normal 37-47 [facility] Comment on above: Performed By: #### L 100.0100, L500.4050 ####[facility] [address] [place], [address] Hemoglobin (Bld) [Mass/Vol] 12.6 g/dL Normal 12.0-15.0 [facility] Comment on above: Performed By: #### L 100.0100, L500.4050 ####[facility] [address] [place], [address] IG% 0.300 Normal 0.0-0.9 [facility] Comment on above: Result Comment: IG% - Immature Granulocytes (promyelocytes, myelocytes and metamyelocytes) > 1% indicates that a LEFT SHIFT is Present. Performed By: #### L 100.0100, L500.4050 ####[facility] [address] [place], [address] Lymphocytes/100 WBC (Bld) 29.5 % Normal 19-41 [facility] Comment on above: Performed By: #### L 100.0100, L500.4050 ####[facility] [address] [place], [address] MCH (RBC) [Entitic mass] 30.7 pg Normal 27.0-32.0 [facility] Comment on above: Performed By: #### L 100.0100, L500.4050 ####[facility] [address] [place], [address] MCHC (RBC) [Mass/Vol] 32.7 g/dL Normal 32-36 [facility] Comment on above: Performed By: #### L 100.0100, L500.4050 ####[facility] [address] [place], [address] MCV (RBC) [Entitic vol] 93.9 fL Normal 81-99 [facility] Comment on above: Performed By: #### L 100.0100, L500.4050 ####[facility] [address] [place], [address] Monocytes/100 WBC (Bld) 7.1 % Normal 0-10 [facility] Comment on above: Performed By: #### L 100.0100, L500.4050 ####[facility] [address] [place], [address] Neutrophils/100 WBC (Bld) 61.0 % Normal 47-70 [facility] Comment on above: Performed By: #### L 100.0100, L500.4050 ####[facility] [address] [place], [address] Nucleated RBC (Bld) [#/Vol] 0 10*3/uL Normal 0-5 [facility] Comment on above: Performed By: #### L 100.0100, L500.4050 ####[facility] [address] [place], [address] Platelet mean volume (Bld) [Entitic vol] 10.6 fL Normal 6.2-12.0 [facility] Comment on above: Performed By: #### L 100.0100, L500.4050 ####[facility] [address] [place], [address] Platelets (Bld) [#/Vol] 162 10*3/uL Normal 150-450 [facility] Comment on above: Performed By: #### L 100.0100, L500.4050 ####[facility] [address] [place], [address] RBC (Bld) [#/Vol] 4.10 10*6/uL Low 4.2-5.4 [facility] Comment on above: Performed By: #### L 100.0100, L500.4050 ####[facility] [address] [place], [address] RDW SD 46.2 fl High 35.1-43.9 [facility] Comment on above: Performed By: #### L 100.0100, L500.4050 ####[facility] [address] [place], [address] WBC (Bld) [#/Vol] 7.0 10*3/uL Normal 4.4-11.0 [facility] Comment on above: Performed By: #### L 100.0100, L500.4050 ####[facility] [address] [place], [address] Carbon dioxide measurementOr dered By: Stephanie Orta on 05-07-2024 CO2 [Moles/Vol] 29.0 mmol/L 21.0-32.0 [facility] Chloride measurementOrdered By: Stephaniemichelle Orta on 05-07-2024 Chloride [Moles/Vol] 106 mmol/L 98-107 [facility] Comprehensive Metabolic Prof ilon 05-07-2024 Albumin [Mass/Vol] 3.7 g/dL Normal 3.2-5.0 [facility] Comment on above: Performed By: #### L 100.0100, L500.4050 ####[facility] [address] [place], [address] Albumin/Globulin [Mass ratio] 1.1 {ratio} Normal 0.9-2.4 [facility] Comment on above: Performed By: #### L 100.0100, L500.4050 ####[facility] [address] [place], [address] ALK P 60 U/L Normal 45-117 [facility] Comment on above: Performed By: #### L 100.0100, L500.4050 ####[facility] [address] [place], [address] ALT [Catalytic activity/Vol] 27 U/L Normal 13-56 [facility] Comment on above: Performed By: #### L 100.0100, L500.4050 ####[facility] [address] [place], [address] AST [Catalytic activity/Vol] 18 U/L Normal 15-37 [facility] Comment on above: Performed By: #### L 100.0100, L500.4050 ####[facility] [address] [place], [address] Bilirubin [Mass/Vol] 0.30 mg/dL Normal 0.20-1.00 [facility] Comment on above: Result Comment: For patients on eltrombopag therapy, use of Dimension [place] TBIL is not recommended. Performed By: #### L 100.0100, L500.4050 ####[facility] [address] [place], [address] BUN/CRE 21.8 RATIO High 10-20 [facility] Comment on above: Performed By: #### L 100.0100, L500.4050 ####[facility] [address] [place], [address] CA,Total 9.4 mg/dL Normal 8.5-10.1 [facility] Comment on above: Performed By: #### L 100.0100, L500.4050 ####[facility] [address] [place], [address] Chloride [Moles/Vol] 106 mmol/L Normal 98-107 [facility] Comment on above: Performed By: #### L 100.0100, L500.4050 ####[facility] [address] [place], [address] CO2 [Moles/Vol] 29.0 mmol/L Normal 21.0-32.0 [facility] Comment on above: Performed By: #### L 100.0100, L500.4050 ####[facility] [address] [place], [address] Creatinine [Mass/Vol] 0.83 mg/dL Normal 0.55-1.02 [facility] Comment on above: Result Comment: The validity of the calculated GFR GFRAA in patients over 70 years has not been determined. Clinical correlation is essential. Performed By: #### L 100.0100, L500.4050 ####[facility] [address] [place], [address] EST GFR - AA 88 mL/min Normal >60 [facility] Comment on above: Result Comment: Afri can Moz[place]ican GFR Calc Performed By: #### L 100.0100, L500.4050 ####[facility] [address] [place], [address] GAP 5 Normal 5-15 [facility] Comment on above: Performed By: #### L 100.0100, L500.4050 ####[facility] [address] [place], [address] GFR/1.73 sq M.predicted among non-blacks MDRD (S/P/Bld) [Vol rate/Area] 73 mL/min/{1.73_m2} Normal >60 [facility] Comment on above: Result Comment: Non- GFR Calc Performed By: #### L 100.0100, L500.4050 ####[facility] [address] [place], [address] Globulin (S) [Mass/Vol] 3.4 g/dL Normal 2.2-4.2 [facility] Comment on above: Performed By: #### L 100.0100, L500.4050 ####[facility] [address] [place], [address] Glucose [Mass/Vol] 155 mg/dL High 74-106 [facility] Comment on above: Result Comment: Fast ing Glucose result greater than or equal to 126 mg/dL suggests DIABETES MELLITUS per A.D.A. criteria. Performed By: #### L 100.0100, L500.4050 ####[facility] [address] [place], [address] Potassium [Moles/Vol] 3.6 mmol/L Normal 3.5-5.1 [facility] Comment on above: Performed By: #### L 100.0100, L500.4050 ####[facility] [address] [place], [address] Sodium [Moles/Vol] 140 mmol/L Normal 136-145 [facility] Comment on above: Performed By: #### L 100.0100, L500.4050 ####[facility] [address] [place], [address] T PROT 7.1 g/dL Normal 6.4-8.2 [facility] Comment on above: Performed By: #### L 100.0100, L500.4050 ####[facility] [address] [place], [address] Urea nitrogen [Mass/Vol] 18 mg/dL Normal 7-18 [facility] Comment on above: Performed By: #### L 100.0100, L500.4050 ####[facility] [address] [place], [address] Eosinophil percentageOrdered By: Stephanie Orta on 05-07-2024 Eosinophils/100 WBC (Bld) 1.4 % 0-5 [facility] Erythrocyte distribution wid th ratioOrdered By: Stephanie Orta on 05-07-2024 Erythrocyte distribution width (RBC) [Ratio] 13.6 % 11.6-14.6 [facility] Erythrocyte distribution wid th standard deviationOrdered By: Stephanie Orta on 05-07-2024 Erythrocyte distribution width (RBC) [Entitic vol] 46.2 fL High 35.1-43.9 [facility] Estimated glomerular filtrat ion rate (GFR) AmericanOrdered By: Stephanie Orta on 05-07-2024 Estimated GFR (MDRD) Amer 88 mL/min >60 [facility] Comment on above: GFR Calc Glomerular filtration rate ( GFR) estimationOrdered By: Stephanie Orta on 05-07-2024 Estimated GFR (MDRD) Non-Af Amer 73 mL/min >60 [facility] Comment on above: Non- GFR Calc Glucose measurementOrdered B y: Stephanie Orta on 05-07-2024 Glucose [Mass/Vol] 155 mg/dL High 74-106 [facility] Comment on above: Fasting Glucose resu lt greater than or equal to 126 mg/dL suggests DIABETES MELLITUS per A.D.A. criteria. Hematocrit Auto (Bld) [Volum e fraction]Ordered By: Stephanie Orta on 05-07-2024 Hematocrit (Bld) [Volume fraction] 38.5 % 37-47 [facility] Hemoglobin measurementOrdere d By: Stephanie Orta on 05-07-2024 Hemoglobin (Bld) [Mass/Vol] 12.6 g/dL 12.0-15.0 [facility] Immature granulocytes/100 WB C Auto (Bld)Ordered By: Stephanie Orta on 05-07-2024 Immature granulocytes/100 WBC (Bld) 0.300 % 0.0-0.9 [facility] Comment on above: IG% - Immature Granu locytes (promyelocytes, myelocytes and metamyelocytes) > 1% indicates that a LEFT SHIFT is Present. Laboratory - Chemistry and C hemistry - challengeOrdered By: Stephanie Orta on 05-07-2024 AST [Catalytic activity/Vol] 18 U/L 15-37 [facility] Lymphocytes Auto (Unsp spec) [#/Vol]Ordered By: Stephanie Orta on 05-07-2024 Lymphocytes (Bld) [#/Vol] 2.05 10*3/uL 0.83-4.51 [facility] Lymphocytes/100 WBC Auto (Un sp spec)Ordered By: Stephanie Orta on 05-07-2024 Lymphocytes/100 WBC (Bld) 29.5 % 19-41 [facility] MCV (mean corpuscular volume ) determinationOrdered By: Stephanie Orta on 05-07-2024 MCV (RBC) [Entitic vol] 93.9 fL 81-99 [facility] Mean corpuscular hemoglobin (MCH) determinationOrdered By: Stephanie Orta on 05-07-2024 MCH (RBC) [Entitic mass] 30.7 pg 27.0-32.0 [facility] Mean corpuscular hemoglobin concentration (MCHC) determinationOrdered By: Stephanie Orta on 05-07-2024 MCHC (RBC) [Mass/Vol] 32.7 g/dL 32-36 [facility] Mean platelet volume determi nationOrdered By: Stephanie Orta on 05-07-2024 Platelet mean volume (Bld) [Entitic vol] 10.6 fL 6.2-12.0 [facility] Monocyte percentageOrdered B y: Stephanie Orta on 05-07-2024 Monocytes/100 WBC (Bld) 7.1 % 0-10 [facility] Neutrophil percentageOrdered By: Stephanie Orta on 05-07-2024 Neutrophils/100 WBC (Bld) 61.0 % 47-70 [facility] Nucleated red blood cell per centageOrdered By: Stephanie Orta on 05-07-2024 Nucleated RBC/100 WBC (Bld) [Ratio] 0 % 0-5 [facility] Platelet countOrdered By: Jimenez Orta on 05-07-2024 Platelets (Bld) [#/Vol] 162 10*3/uL 150-450 [facility] Potassium measurementOrdered By: Stephanie Orta on 05-07-2024 Potassium [Moles/Vol] 3.6 mmol/L 3.5-5.1 [facility] RBC Auto (Bld) [#/Vol]Ordere d By: Stephanie Orta on 05-07-2024 RBC (Bld) [#/Vol] 4.10 10*6/uL Low 4.2-5.4 [facility] Serum anion gap measurementO rdered By: Stephanie Orta on 05-07-2024 Anion gap [Moles/Vol] 5 mmol/L 5-15 [facility] Serum globulin measurementOr dered By: Stephanie Orta on 05-07-2024 Globulin (S) [Mass/Vol] 3.4 g/dL 2.2-4.2 [facility] Serum or plasma alanine bradford otransferase (ALT) measurementOrdered By: Stephanie Orta on 05-07-2024 ALT [Catalytic activity/Vol] 27 U/L 13-56 [facility] Serum or plasma albumin blessing urement (mass/volume)Ordered By: Stephanie Orta on 05-07-2024 Albumin [Mass/Vol] 3.7 g/dL 3.2-5.0 [facility] Serum or plasma alkaline mario sphatase measurementOrdered By: Stephanie Orta on 05-07-2024 ALP [Catalytic activity/Vol] 60 U/L 45-117 [facility] Serum or plasma calcium blessing urement (mass/volume)Ordered By: Stephanie Orta on 05-07-2024 Calcium [Mass/Vol] 9.4 mg/dL 8.5-10.1 [facility] Serum or plasma creatinine m easurement (mass/volume)Ordered By: Stephanie Orta on 05-07-2024 Creatinine [Mass/Vol] 0.83 mg/dL 0.55-1.02 [facility] Comment on above: The validity of the calculated GFR & GFRAA in patients over 70 years has not been determined. Clinical correlation is essential. Serum or plasma urea nitroge n measurement (mass/volume)Ordered By: Stephanie Orta on 05-07-2024 Urea nitrogen [Mass/Vol] 18 mg/dL 7-18 [facility] Sodium levelOrdered By: Jennifer Orta on 05-07-2024 Sodium [Moles/Vol] 140 mmol/L 136-145 [facility] Total proteinOrdered By: Maria Del Rosario Orta on 05-07-2024 Protein [Mass/Vol] 7.1 g/dL 6.4-8.2 [facility] White blood cell (WBC) count Ordered By: Stephanie Orta on 05-07-2024 WBC (Bld) [#/Vol] 7.0 10*3/uL 4.4-11.0 [facility] Internal Medicine Office Vis iton 04-23-2024 Internal Medicine Office Visit [facility] [address] [place] [address] [place] [address] OFFICE VISIT Date of Service: 04/23/24 MR#: [id number] Acct: [id number] Name: GISEL SAWYER Rep #: [id number] : 1955 Provider: Dr. 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 Is patient in pain?: No Allergies No Known Allergies Allergy (Verified 04/23/24 11:02) Medications ???Medication ???Instructions ???Recorded ???Confirmed ???Type folic acid 1 mg tablet 2 mg PO DAILY@0800 04/07/17 04/23/24 History methotrexate sodium 2.5 mg tablet 12.5 mg PO HERNANDEZ 04/07/17 04/23/24 History latanoprost 0.005 % eye drops 1 drp ophthalmic (eye) DAILY 08/15/20 04/23/24 History leucovorin calcium 15 mg tablet 15 mg PO ONCE 08/20/20 04/23/24 History alendronate 70 mg tablet 70 mg PO QWEEK #7 tabs 02/06/24 04/23/24 Rx hydroxyzine HCl 25 mg tablet 25 mg PO TID PRN anxiety #90 tabs 03/09/24 04/23/24 Rx Have you fallen in the past year?: No PFSH Medical History Flu vaccine need OAB (overactive bladder) Constipation Murmur Hyperlipidemia FREDERIC (acute kidney injury) Health care maintenance Anxiety Chronic constipation Preoperative evaluation to rule out surgical contraindication Rlirc-Jtzifqrzf-Fcm te (WPW) syndrome Osteoporosis Glaucoma Factor 5 Leiden mutation, heterozygous Abnormal Pap smear of cervix Rheumatoid arthritis Surgical History History of eye surgery S/P abdominal hysterectomy History of S/P placement of cardiac pacemaker History of colposcopy Family History Father Myocardial infarction, Onset Age: 70 Arthritis Mother CVA (cerebral vascular accident) Factor 5 Leiden mutation, heterozygous Heart disease Social History Smoking Status: Never smoker alcohol intake: current alcohol intake frequency: holidays/special occasions only substance use type: does not use caffeine: Yes Type: coffee Number of servings: 3 what type of physical activity do you participate in: walking frequency: 3-4 times per week seatbelt use: always do you feel safe at home: Yes 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 No acute concerns at this time. At her last visit, had reported constipation. Since then, she states that she has been taking a stool softener every night and occasionally, takes Metamucil. Has a bowel movement every other day or at the most every third day. No bloating, pain, weight changes or blood in her stool. Also denies nausea or vomiting. She states that she has never been a daily bowel movement person. History of anxiety, takes hydroxyzine as needed. Has been being managed for esophageal cancer and has had some hospital admissions lately. She overall, states that she is doing okay given current situation. History of osteoporosis currently on Fosamax. No muscle pain or weakness. Due for repeat bone density scan in July. Tolerating medication well. ROS Const Constitutional: No body ache, chills, excessive sweating, fatigue, fever(s), frequent falls, headache(s), snoring, weakness, sleep problems or change in appetite Eyes Eyes: No blurry vision, change in vision, bulging eyes, floaters, visual disturbances, eye pain or Light sensitivity ENT ENT: No abnormal hearing, ear or mastoid pain, tinnitus, balance problems, nosebleed/epistaxis , nasal congestion, headache(s), neck pain or sore throat Resp Respiratory: No cough, excessive phlegm production, pain on inspiration, shortness of breath, snoring or wheezing Cardio Cardiology: No chest pain at rest, chest pain with exertion, excessive sweating, shortness of breath, dyspnea on exertion, lightheadedness, orthopnea or palpitations Gastro GI: No abdominal pain, change in bowel habits, constipation, cramping, diarrhea, nausea/dyspepsia or vomiting Genitourinary-Femal e: No burning urination, pain (more content not included)... Normal [facility] Bacteria Ur Culton 4 Bacteria identified Cx Nom (U) ORGANISM ID: 1 >=100,000 CFU/ml Escherichia coli ORGANISM ID: 1 (ESCHERICHIA COLI) ANTIBIOTIC INTERPRETATION GLENROY STATUS REFERENCE RANGE Ampicillin S 4 F Susceptible <=8 , Intermediate >8 , Resistant >16 Cefazolin S <=4 F Susceptible 0-16 , Intermediate <0 or >16 , Resistant >16 For uncomplicated urinary tract infections, cefazolin results can be used to predict susceptibility or resistance to cephalexin. Ceftriaxone S <=1 F Susceptible <=1 , Intermediate >1 , Resistant >=4 Cefepime S <=1 F Susceptible <=2 , Susceptible-Dose Dependent >2 , Resistant >=16 Ertapenem S <=0.5 F Susceptible <=0.5 , Intermediate >.5 , Resistant >1 Meropenem S <=0.25 F Susceptible <=1 , Intermediate >1 , Resistant >2 Ampicillin/Sulbact S <=2 F Susceptible <=8 , Intermediate >8 , Resistant >16 Piperacillin/Tazoba c S <=4 F Susceptible <16 , Susceptible-Dose Dependent >=16 , Resistant >=32 Gentamicin S <=1 F Susceptible <=2 , Intermediate >2 , Resistant >=8 Tobramycin S <=1 F Susceptible <4 , Intermediate >=4 , Resistant >=8 Trimeth sulfameth S <=20 F Susceptible <=40 , Resistant >40 Ciprofloxacin S <=0.25 F Susceptible <0.5 , Intermediate >=.5 , Resistant >=1 Nitrofurantoin S <=16 F Susceptible <=32 , Intermediate >32 , Resistant >64 Abnormal [facility] Comment on above: Performed By: #### 6 30-4 #### [facility] CLIA [id number] [address] [place] [address] STATES OF [facility] CNOVon 03-15-2024 CNOV Office Visit ([facility]) ---- GISEL SAWYER ([id number]) 1955 F Date Time Provider Department 03/15/24 8:45 AM INES ARCOS WSTR During your visit today, we recorded the following information about you: Temperature Pulse Respiration Blood pressure 97.6 degrees 82/minute 20/minute 150/84 Weight 57.6 kg Ines Arcos PA-C 03/15/2024 9:22 AM Signed This note was created using [employer]. Subjective Gisel Sawyer is a 68 year old female. HPI Patient presents with a chief complaint of urinary frequency, dysuria over the past 3 days. She tried some ikfy-uqb-phdhymm urinary medication which did not seem to help so she came in for evaluation. She has had some pelvic cramping as well as urgency. No back pain. No vomiting or fever. No nausea. No vaginal complaints. No history of recurrent UTIs recently. Review of Systems Constitutional: Negative. HENT: Negative. Respiratory: Negative. Cardiovascular: Negative. Gastrointestinal: Negative. Genitourinary: Positive for dysuria, frequency, pelvic pain and urgency. Negative for hematuria, vaginal bleeding, vaginal discharge and vaginal pain. Musculoskeletal: Negative. All other systems reviewed and are negative. PAST MEDICAL HISTORY Diagnosis Date Complex endometrial hyperplasia with atypia Diffuse cystic mastopathy Diverticulosis of colon (without mention of hemorrhage) Internal hemorrhoids without mention of complication PMH - PAST MEDICAL HISTORY OF heart condition WPW PMH - PAST MEDICAL HISTORY OF pacemaker Rheumatoid arthritis (HCC) Current Outpatient Medications Medication Sig Dispense Refill alendronate (FOSAMAX) 70 mg tablet Take 1 tablet by mouth one time a week. hydrOXYzine HCl (ATARAX) 25 mg tablet Take 25 mg by mouth three times a day as needed. zolpidem (AMBIEN) 10 mg Take 10 mg by mouth at bedtime as needed. LATANOPROST OPHTHALMIC Use 1 Drop in eyes once daily. leucovorin (LEUCOVORIN) 15 mg tablet Take 15 mg by mouth one time a week. folic acid 1 mg tablet Take 2 mg by mouth once daily. 0 methotrexate 2.5 mg tablet Take 2.5 mg by mouth one time only. Take 6 tablets weekly. nitrofurantoin monohydrate and macrocrystal (MACROBID) 100 mg capsule Take 1 capsule by mouth two times a day with meals for 5 days. 10 capsule 0 dicyclomine (BENTYL) 10 mg capsule Take 1 capsule by mouth three times daily as needed (bowel spasm). (Patient not taking: Reported on 03/15/2024) 20 capsule 2 ESTRACE 0.01 % (0.1 mg/gram) vaginal cream insert 1 gram vaginally 3 NIGHTS PER WEEK (Patient not taking: Reported on 03/15/2024) 0 hydroxychloroquine (PLAQUENIL) 200 mg ORAL tablet Take 200 mg by mouth once daily. (Patient not taking: Reported on 03/15/2024) 0 No current facility-administer ed medications for this visit. PAST SURGICAL HISTORY Procedure Laterality Date BIOPSY BREAST OPEN INCISIONAL Bx of breast, incisional, left breast DELIVERY ONLY , low cervical x 2 COLONOSCOPY FLX DX W/COLLJ SPEC WHEN PFRMD 01/24/08 COLONOSCOPY FLX DX W/COLLJ SPEC WHEN PFRMD 04/11/2017 repeat 10 years DILATION AND CURETTAGE DXAND/THER NONOBSTETRIC x 2 PACEMAKER IMPLANT 04/2016 Pacemaker changed out PRTL THYROID LOBECTOMY UNI W/WO ISTHMUSECTOMY TOTAL ABDOMINAL HYSTERECT W/WO RMVL TUBE OVARY 02/23/2007 focal complex endometrial hyperplasia with atypia FAMILY HISTORY Problem Relation Age of Onset Stroke Mother Thyroid Mother Osteoporosis Mother Hyperlipidemia Mother Coronary Artery Disease Father Arthritis Father Heart Father Open Heart Surgery Social History Tobacco Use Smoking status: Never Smokeless tobacco: Never Substance Use Topics Alcohol use: Yes Comment: OCCASIONALLY Drug use: No Objective BP 150/84 Pulse 82 Temp 36.4 ?C (97.6 ?F) Resp 20 Wt 57.6 kg (126 lb 15.8 oz) LMP 12/22/2006 SpO2 99% BMI 19.89 kg/m? Physical Exam Vitals reviewed. Constitutional: Appearance: Normal appearance. HENT: Head: Normocephalic and atraumatic. Cardiovascular: Rate and Rhythm: Normal rate and regular rhythm. Heart sounds: Normal heart sounds. Pulmonary: Effort: Pulmonary effort is normal. Breath sounds: Normal breath sounds. Abdominal: General: Abdomen is flat. Palpations: Abdomen is soft. Tenderness: There is no abdominal tenderness. There is no right CVA tenderness, left CVA tenderness or guarding. Musculoskeletal: Cervical back: Neck supple. Lymphadenopathy: Cervical: No cervical adenopathy. Skin: General: Skin is warm and dry. Findings: No rash. Neurological: General: No focal deficit present. Mental Status: She is alert and oriented to person, place, and time. Assessment and Plan ASSESSMENT/PLAN: 1. Acute UTI - ICD9: 599.0, ICD10: N39.0 acute - UA positive for karen esterase, hematuria, and proteinuria - Send urine for culture - Begin treatment with Ma (more content not included)... Normal [facility] UA DIP, URINE (POC)on 2023 BILIRUBIN UA (POCT) Negative Negative [facility] CLARITY UA (POCT) Cloudy [facility] COLOR UA (POCT) Yellow [facility] GLUCOSE UA (POCT) Negative Negative mg/dL [facility] Hemoglobin Ql (U) Small Abnormal Negative [facility] Interpretation and review of laboratory results Abnormal [facility] KETONE UA (POCT) Trace Negative mg/dL [facility] LEUKOCYTES UA (POCT) Moderate [facility]normal [facility] [facility] NITRITE UA (POCT) Negative Negative [facility] PH UA (POCT) 5.5 4.5 - 8.0 [facility] Protein Ql (U) Trace Abnormal Negative mg/dL [facility] SPECIFIC GRAVITY UA (POCT) >=1.030 1.005 - 1.030 [facility] UROBILINOGEN UA (POCT) 0.2 Nicole l E.U./dL [facility] Location:[address], [place], [place], [address] [place] [address] POINT OF CARE [facility] Office Visit Reporton 2023 Office Visit Report [facility] [address] [place] [address] OFFICE VISIT Date of Service: 03/13/24 MR#: [id number] Acct: [id number] Patient: GISEL SAWYER Rep #: [id number] : 1955 Provider: JETT NURSE Age/Sex: 68/F [facility] [facility] Status: Signed Intake Vital Signs 01/13/24 10:08 Height 5 ft 7 in Intake Visit Reasons: FLU SHOT Chief Complaint: Follow-up chronic conditions Allergies No Known Allergies Allergy (Verified 01/13/24 10:06) Have you fallen in the past year?: No Immunizations Fluad Triv (65y up)(PF) 45 mcg (15 mcg x 3)/0.5 mL IM syringe Performing Provider: Melba Young MD Performing Location: [facility] Administered by: Godlie Zavala on 03/13/24 13:17 Dose Route Admin Location Dispensed Lot Number Expiration Date [facility] Man ufacturer 45 mcg IM Left Deltoid 0.5 mL [id number] 09/07/24 49752-666-02 [employer] VIS Given Date VIS Provided VIS Publication Date 03/13/24 Single Vaccine 24 Eligibility Eligibility Date Funding Source Not Applicable Assessment and Plan Assessment and Plan (1) Flu vaccine need: Status: Acute Orders: Orders Influenza Immunization 03/13/24 Z23 - Encounter for immunization Clinical Quality Measures Falls Risk Screening/Assistive Devices Have you fallen in the past year?: No 03/15/24 1417 Date Melba Villalpando Signature: Date (if applicable) CC: Normal [facility] CBC W/Diff, Automatedon 09-3 0-2023 Absolute Lymph 2.41 X10 3/uL Normal 0.83-4.51 [facility] Comment on above: Order Comment: DR. Alayna SWARTZ GETS LIPID AND VITD DR. ORTA GETS CBCD CMP Performed By: #### L 100.0100, L500.4050, L506.1000, L500.4100 #### [facility] [address] [place], [address] Absolute Neut 4.2 X10 3/uL Normal 2.0-7.7 [facility] Comment on above: Order Comment: DR. Alayna SWARTZ GETS LIPID AND VITD DR. ORTA GETS CBCD CMP Performed By: #### L 100.0100, L500.4050, L506.1000, L500.4100 #### [facility] [address] [place], [address] Basophils/100 WBC (Bld) 0.8 % Normal 0-1 [facility] Comment on above: Order Comment: DR. Alayna SWARTZ GETS LIPID AND VITD DR. ORTA GETS CBCD CMP Performed By: #### L 100.0100, L500.4050, L506.1000, L500.4100 #### [facility] [address] [place], [address] Eosinophils/100 WBC (Bld) 0.7 % Normal 0-5 [facility] Comment on above: Order Comment: DR. Alayna SWARTZ GETS LIPID AND VITD DR. ORTA GETS CBCD CMP Performed By: #### L 100.0100, L500.4050, L506.1000, L500.4100 #### [facility] [address] [place], [address] Erythrocyte distribution width (RBC) [Ratio] 13.4 % Normal 11.6-14.6 [facility] Comment on above: Order Comment: DR. Alayna SWARTZ GETS LIPID AND VITD DR. ORTA GETS CBCD CMP Performed By: #### L 100.0100, L500.4050, L506.1000, L500.4100 #### [facility] [address] [place], [address] Hematocrit (Bld) [Volume fraction] 41.1 % Normal 37-47 [facility] Comment on above: Order Comment: DR. Alayna SWARTZ GETS LIPID AND VITD DR. ORTA GETS CBCD CMP Performed By: #### L 100.0100, L500.4050, L506.1000, L500.4100 #### [facility] [address] [place], [address] Hemoglobin (Bld) [Mass/Vol] 13.2 g/dL Normal 12.0-15.0 [facility] Comment on above: Order Comment: DR. Alayna SWARTZ GETS LIPID AND VITD DR. ORTA GETS CBCD CMP Performed By: #### L 100.0100, L500.4050, L506.1000, L500.4100 #### [facility] [address] [place], [address] IG% 0.300 Normal 0.0-0.9 [facility] Comment on above: Order Comment: DR. Alayna SWARTZ GETS LIPID AND VITD DR. ORTA GETS CBCD CMP Result Comment: IG% - Immature Granulocytes (promyelocytes, myelocytes and metamyelocytes) > 1% indicates that a LEFT SHIFT is Present. Performed By: #### L 100.0100, L500.4050, L506.1000, L500.4100 #### [facility] [address] [place], [address] Lymphocytes/100 WBC (Bld) 32.6 % Normal 19-41 [facility] Comment on above: Order Comment: DR. Alayna SWARTZ GETS LIPID AND VITD DR. ORTA GETS CBCD CMP Performed By: #### L 100.0100, L500.4050, L506.1000, L500.4100 #### [facility] [address] [place], [address] MCH (RBC) [Entitic mass] 30.1 pg Normal 27.0-32.0 [facility] Comment on above: Order Comment: DR. Alayna SWARTZ GETS LIPID AND VITD DR. ORTA GETS CBCD CMP Performed By: #### L 100.0100, L500.4050, L506.1000, L500.4100 #### [facility] [address] [place], [address] MCHC (RBC) [Mass/Vol] 32.1 g/dL Normal 32-36 [facility] Comment on above: Order Comment: DR. Alayna SWARTZ GETS LIPID AND VITD DR. ORTA GETS CBCD CMP Performed By: #### L 100.0100, L500.4050, L506.1000, L500.4100 #### [facility] [address] [place], [address] MCV (RBC) [Entitic vol] 93.8 fL Normal 81-99 [facility] Comment on above: Order Comment: DR. Alayna SWARTZ GETS LIPID AND VITD DR. ORTA GETS CBCD CMP Performed By: #### L 100.0100, L500.4050, L506.1000, L500.4100 #### [facility] [address] [place], [address] Monocytes/100 WBC (Bld) 9.1 % Normal 0-10 [facility] Comment on above: Order Comment: DR. Alayna SWARTZ GETS LIPID AND VITD DR. ORTA GETS CBCD CMP Performed By: #### L 100.0100, L500.4050, L506.1000, L500.4100 #### [facility] [address] [place], [address] Neutrophils/100 WBC (Bld) 56.5 % Normal 47-70 [facility] Comment on above: Order Comment: DR. Alayna SWARTZ GETS LIPID AND VITD DR. ORTA GETS CBCD CMP Performed By: #### L 100.0100, L500.4050, L506.1000, L500.4100 #### [facility] [address] [place], [address] Nucleated RBC (Bld) [#/Vol] 0 10*3/uL Normal 0-5 [facility] Comment on above: Order Comment: DR. Alayna SWARTZ GETS LIPID AND VITD DR. ORTA GETS CBCD CMP Performed By: #### L 100.0100, L500.4050, L506.1000, L500.4100 #### [facility] [address] [place], [address] Platelet mean volume (Bld) [Entitic vol] 11.4 fL Normal 6.2-12.0 [facility] Comment on above: Order Comment: DR. Alayna SWARTZ GETS LIPID AND VITD DR. ORTA GETS CBCD CMP Performed By: #### L 100.0100, L500.4050, L506.1000, L500.4100 #### [facility] [address] [place], [address] Platelets (Bld) [#/Vol] 151 10*3/uL Normal 150-450 [facility] Comment on above: Order Comment: DR. Alayna SWARTZ GETS LIPID AND VITD DR. ORTA GETS CBCD CMP Performed By: #### L 100.0100, L500.4050, L506.1000, L500.4100 #### [facility] [address] [place], [address] RBC (Bld) [#/Vol] 4.38 10*6/uL Normal 4.2-5.4 [facility] Comment on above: Order Comment: DR. Alayna SWARTZ GETS LIPID AND VITD DR. ORTA GETS CBCD CMP Performed By: #### L 100.0100, L500.4050, L506.1000, L500.4100 #### [facility] [address] [place], [address] RDW SD 45.9 fl High 35.1-43.9 [facility] Comment on above: Order Comment: DR. Alayna SWARTZ GETS LIPID AND VITD DR. ORTA GETS CBCD CMP Performed By: #### L 100.0100, L500.4050, L506.1000, L500.4100 #### [facility] [address] [place], [address] WBC (Bld) [#/Vol] 7.4 10*3/uL Normal 4.4-11.0 [facility] Comment on above: Order Comment: DR. Alayna SWARTZ GETS LIPID AND VITD DR. ORTA GETS CBCD CMP Performed By: #### L 100.0100, L500.4050, L506.1000, L500.4100 #### [facility] [address] [place], [address] Comprehensive Metabolic Prof [place] 02-06-2024 Albumin [Mass/Vol] 3.9 g/dL Normal 3.2-5.0 [facility] Comment on above: Order Comment: DR. Alayna SWARTZ GETS LIPID AND VITD DR. ORTA GETS CBCD CMP Performed By: #### L 100.0100, L500.4050, L506.1000, L500.4100 #### [facility] [address] [place], [address] Albumin/Globulin [Mass ratio] 1.1 {ratio} Normal 0.9-2.4 [facility] Comment on above: Order Comment: DR. Alayna SWARTZ GETS LIPID AND VITD DR. ORTA GETS CBCD CMP Performed By: #### L 100.0100, L500.4050, L506.1000, L500.4100 #### [facility] [address] [place], [address] ALK P 55 U/L Normal 45-117 [facility] Comment on above: Order Comment: DR. Alayna SWARTZ GETS LIPID AND VITD DR. ORTA GETS CBCD CMP Performed By: #### L 100.0100, L500.4050, L506.1000, L500.4100 #### [facility] [address] [place], [address] ALT [Catalytic activity/Vol] 21 U/L Normal 13-56 [facility] Comment on above: Order Comment: DR. Alayna SWARTZ GETS LIPID AND VITD DR. ORTA GETS CBCD CMP Performed By: #### L 100.0100, L500.4050, L506.1000, L500.4100 #### [facility] [address] [place], [address] AST [Catalytic activity/Vol] 18 U/L Normal 15-37 [facility] Comment on above: Order Comment: DR. Alayna SWARTZ GETS LIPID AND VITD DR. ORTA GETS CBCD CMP Performed By: #### L 100.0100, L500.4050, L506.1000, L500.4100 #### [facility] [address] [place], [address] Bilirubin [Mass/Vol] 0.40 mg/dL Normal 0.20-1.00 [facility] Comment on above: Order Comment: DR. Alayna SWARTZ GETS LIPID AND VITD DR. ORTA GETS CBCD CMP Result Comment: For patients on eltrombopag therapy, use of Dimension [place] TBIL is not recommended. Performed By: #### L 100.0100, L500.4050, L506.1000, L500.4100 #### [facility] [address] [place], [address] BUN/CRE 20.4 RATIO High 10-20 [facility] Comment on above: Order Comment: DR. Alayna SWARTZ GETS LIPID AND VITD DR. ORTA GETS CBCD CMP Performed By: #### L 100.0100, L500.4050, L506.1000, L500.4100 #### [facility] [address] [place], [address] CA,Total 9.8 mg/dL Normal 8.5-10.1 [facility] Comment on above: Order Comment: DR. Alayna SWARTZ GETS LIPID AND VITD DR. ORTA GETS CBCD CMP Performed By: #### L 100.0100, L500.4050, L506.1000, L500.4100 #### [facility] [address] [place], [address] Chloride [Moles/Vol] 107 mmol/L Normal 98-107 [facility] Comment on above: Order Comment: DR. Alayna SWARTZ GETS LIPID AND VITD DR. ORTA GETS CBCD CMP Performed By: #### L 100.0100, L500.4050, L506.1000, L500.4100 #### [facility] [address] [place], [address] CO2 [Moles/Vol] 28.0 mmol/L Normal 21.0-32.0 [facility] Comment on above: Order Comment: DR. Alayna SWARTZ GETS LIPID AND VITD DR. ORTA GETS CBCD CMP Performed By: #### L 100.0100, L500.4050, L506.1000, L500.4100 #### [facility] [address] [place], [address] Creatinine [Mass/Vol] 0.83 mg/dL Normal 0.55-1.02 [facility] Comment on above: Order Comment: DR. Alayna SWARTZ GETS LIPID AND VITD DR. ORTA GETS CBCD CMP Result Comment: The validity of the calculated GFR GFRAA in patients over 70 years has not been determined. Clinical correlation is essential. Performed By: #### L 100.0100, L500.4050, L506.1000, L500.4100 #### [facility] [address] [place], [address] EST GFR - AA 88 mL/min Normal >60 [facility] Comment on above: Order Comment: DR. Alayna SWARTZ GETS LIPID AND VITD DR. ORTA GETS CBCD CMP Result Comment: Afri can [place] GFR Calc Performed By: #### L 100.0100, L500.4050, L506.1000, L500.4100 #### [facility] [address] [place], [address] GAP 5 Normal 5-15 [facility] Comment on above: Order Comment: DR. Alayna SWARTZ GETS LIPID AND VITD DR. ORTA GETS CBCD CMP Performed By: #### L 100.0100, L500.4050, L506.1000, L500.4100 #### [facility] [address] [place], [address] GFR/1.73 sq M.predicted among non-blacks MDRD (S/P/Bld) [Vol rate/Area] 72 mL/min/{1.73_m2} Normal >60 [facility] Comment on above: Order Comment: DR. Alayna SWARTZ GETS LIPID AND VITD DR. ORTA GETS CBCD CMP Result Comment: Non- GFR Calc Performed By: #### L 100.0100, L500.4050, L506.1000, L500.4100 #### [facility] [address] [place], [address] Globulin (S) [Mass/Vol] 3.4 g/dL Normal 2.2-4.2 [facility] Comment on above: Order Comment: DR. Alayna SWARTZ GETS LIPID AND VITD DR. ORAT GETS CBCD CMP Performed By: #### L 100.0100, L500.4050, L506.1000, L500.4100 #### [facility] [address] [place], [address] Glucose [Mass/Vol] 96 mg/dL Normal 74-106 [facility] Comment on above: Order Comment: DR. Alayna SWARTZ GETS LIPID AND VITD DR. ORTA GETS CBCD CMP Performed By: #### L 100.0100, L500.4050, L506.1000, L500.4100 #### [facility] [address] [place], [address] Potassium [Moles/Vol] 4.2 mmol/L Normal 3.5-5.1 [facility] Comment on above: Order Comment: DR. Alayna SWARTZ GETS LIPID AND VITD DR. ORTA GETS CBCD CMP Performed By: #### L 100.0100, L500.4050, L506.1000, L500.4100 #### [facility] [address] [place], [address] Sodium [Moles/Vol] 140 mmol/L Normal 136-145 [facility] Comment on above: Order Comment: DR. Alayna SWARTZ GETS LIPID AND VITD DR. ORTA GETS CBCD CMP Performed By: #### L 100.0100, L500.4050, L506.1000, L500.4100 #### [facility] [address] [place], [address] T PROT 7.3 g/dL Normal 6.4-8.2 [facility] Comment on above: Order Comment: DR. Alayna SWARTZ GETS LIPID AND VITD DR. ORTA GETS CBCD CMP Performed By: #### L 100.0100, L500.4050, L506.1000, L500.4100 #### [facility] [address] [place], [address] Urea nitrogen [Mass/Vol] 17 mg/dL Normal 7-18 [facility] Comment on above: Order Comment: DR. Alayna SWARTZ GETS LIPID AND VITD DR. ORTA GETS CBCD CMP Performed By: #### L 100.0100, L500.4050, L506.1000, L500.4100 #### [facility] [address] [place], [address] Lipid Profileon 02-06-2024 Cholesterol [Mass/Vol] 237 mg/dL High 200 [facility] Comment on above: Order Comment: DR. Alayna SWARTZ GETS LIPID AND VITD DR. ORTA GETS CBCD CMP Result Comment: <200 mg/dL Desirable 200-240 mg/dL Borderline >240 mg/dL High Risk Performed By: #### L 100.0100, L500.4050, L506.1000, L500.4100 #### [facility] [address] [place], [address] Cholesterol in HDL [Mass/Vol] 88 mg/dL Normal [facility] Comment on above: Order Comment: DR. Alayna SWARTZ GETS LIPID AND VITD DR. ORTA GETS CBCD CMP Result Comment: The drugs N-Acetylcysteine and Metamizole may falsely depress this assay. Reference Range HDL <40 mg/dL Low HDL Cholesterol HDL >or= 60 mg/dL High HDL Cholesterol Performed By: #### L 100.0100, L500.4050, L506.1000, L500.4100 #### [facility] [address] [place], [address] Cholesterol in LDL [Mass/Vol] 135 mg/dL High 0-130 [facility] Comment on above: Order Comment: DR. Alayna SWARTZ GETS LIPID AND VITD DR. ORTA GETS CBCD CMP Performed By: #### L 100.0100, L500.4050, L506.1000, L500.4100 #### [facility] [address] [place], [address] Cholesterol in VLDL [Mass/Vol] 14 mg/dL Normal 5-40 [facility] Comment on above: Order Comment: DR. Alayna SWARTZ GETS LIPID AND VITD DR. ORTA GETS CBCD CMP Performed By: #### L 100.0100, L500.4050, L506.1000, L500.4100 #### [facility] [address] [place], [address] Triglyceride [Mass/Vol] 71 mg/dL Normal [facility] Comment on above: Order Comment: DR. Alayna SWARTZ GETS LIPID AND VITD DR. ORTA GETS CBCD CMP Result Comment: The drugs N-Acetylcysteine and Metamizole may falsely depress this assay. Serum Triglycerides Reference Interval Normal <150 mg/dL Borderline high 150 - 199 mg/dL High 200 - 499 mg/dL Very High > or = 500 mg/dL Performed By: #### L 100.0100, L500.4050, L506.1000, L500.4100 #### [facility] [address] [place], [address] Vitamin D,25 Hydroxyon 02-05 Vitamin D 25-OH 67.5 ng/mL Normal [facility] Comment on above: Order Comment: DR. Alayna SWARTZ GETS LIPID AND VITD DR. ORTA GETS CBCD CMP Result Comment: Tessie min D 25(OH) Status Range Deficiency <20 ng/mL (50nmol/L) Insufficiency 20 - 30 ng/mL (50 - 75 nmol/L) Sufficiency 30 - 100 ng/mL (75 - 250 nmol/L) Toxicity >100 ng/mL (>250 nmol/L) Performed By: #### L 100.0100, L500.4050, L506.1000, L500.4100 #### [facility] [address] [place], [address] Internal Medicine Office Vis iton 01-13-2024 Internal Medicine Office Visit [facility] [address] [place] [address] [address] [place] [address] OFFICE VISIT Date of Service: 01/13/24 MR#: [id number] Acct: [id number] Name: GISEL SAWYER Rep #: [id number] : 1955 Provider: Dr. 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 Accompanied by: Self Is patient in pain?: No Allergies No Known Allergies Allergy (Verified 01/13/24 10:06) Medications ???Medication ???Instructions ???Recorded ???Confirmed ???Type folic acid 1 mg tablet 2 mg PO DAILY@0800 04/07/17 01/13/24 History methotrexate sodium 2.5 mg tablet 12.5 mg PO HERNANDEZ 04/07/17 01/13/24 History latanoprost 0.005 % eye drops 1 drp ophthalmic (eye) DAILY 08/15/20 01/13/24 History leucovorin calcium 15 mg tablet 15 mg PO ONCE 08/20/20 01/13/24 History hydroxyzine HCl 25 mg tablet 25 mg PO TID PRN anxiety #90 tabs 05/31/22 01/13/24 Rx alendronate 70 mg tablet 70 mg PO QWEEK #7 tabs 12/19/23 01/13/24 Rx Have you fallen in the past year?: No PFSH Medical History (Updated 01/13/24 @ 10:[address] Melba Young MD) OAB (overactive bladder) Constipation Murmur Hyperlipidemia FREDERIC (acute kidney injury) Health care maintenance Anxiety Chronic constipation Preoperative evaluation to rule out surgical contraindication Oznfo-Cojhgeyye-Fvd te (WPW) syndrome Osteoporosis Glaucoma Factor 5 Leiden mutation, heterozygous Abnormal Pap smear of cervix Rheumatoid arthritis Surgical History History of eye surgery S/P abdominal hysterectomy History of S/P placement of cardiac pacemaker History of colposcopy Family History Father Myocardial infarction, Onset Age: 70 Arthritis Mother CVA (cerebral vascular accident) Factor 5 Leiden mutation, heterozygous Heart disease Social History Smoking Status: Never smoker alcohol intake: current alcohol intake frequency: holidays/special occasions only substance use type: does not use caffeine: Yes Type: coffee Number of servings: 3 what type of physical activity do you participate in: walking frequency: 3-4 times per week seatbelt use: always do you feel safe at home: Yes 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 Also has some concerns. She reports constipation. She states that she has a bowel movement every couple days. Hard with straining when she has to. No blood in her stool. No unintentional weight loss. Last colonoscopy was in 2017 and a 10-year follow-up was recommended. No nausea, vomiting or feeling of unwell. She takes Colace as needed. Also reports urinary frequency, urgency and occasionally incontinence which has been going on for years. Some nights, wakes up up to 5 times and most nights wakes up about 2 times. Able to go back to sleep. No burning with urination, abdominal pain or otherwise feeling of unwell. History of osteoporosis currently on Fosamax. Tolerating medication well. No recent fracture. Last bone density scan in July 2022 did show some improvement and she had come down from osteoporosis to osteopenia with high fracture risk. Also on calcium and vitamin D supplements. Other chronic medical conditions are stable. ROS Const Constitutional: No body ache, chills, excessive sweating, fatigue, fever(s), frequent falls, headache(s), snoring, weakness or change in appetite Eyes Eyes: No blurry vision, change in vision, bulging eyes, eye pain or Light sensitivity ENT ENT: No abnormal hearing, ear or mastoid pain, tinnitus, dizziness/vertigo, balance problems, nasal congestion, headache(s), neck pain or sore throat Resp Respiratory: No cough, excessive phlegm production, pain on inspiration, shortness of breath, snoring or wheezing Cardio Cardiology: No chest pain at rest, chest pain with exertion, excessive sweating, dyspnea on exertion, lightheadedness, orthopnea or p (more content not included)... Normal [facility] Cardiology Visit Reporton Cardiology Visit Report [facility] [address] [place] [address] OFFICE VISIT Date of Service: 01/12/24 MR#: [id number] Acct: [id number] Name: GISEL SAWYER Rep #: [id number] : 1955 Provider: JIMENEZ Muñoz Age/Sex: 68/F [place] [facility] Status: Signed HPI HPI History of Present Illness Details: Pleasant 68-year-old lady with a history of hypertension and heart block requiring a permanent pacemaker implantation, cardiac murmur. From a cardiac standpoint, patient is doing well. She does not have any chest discomfort/heavines s/tightness. Her exercise tolerance is stable for her age. She does not have any worsening symptoms of shortness of breath. She does not have any orthopnea. She denies PND. She does not have any symptoms of congestive heart failure. She does not have any palpitations that she is aware of. She does not have any lightheadedness or dizziness. She does not have any near- syncope or syncope. She does not have any lower extremity edema. She does not have any symptoms of claudication. 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 Accompanied by: Self Is patient in pain?: No Allergies No Known Allergies Allergy (Verified 01/12/24 13:16) Medications ???Medication ???Instructions ???Recorded ???Confirmed ???Type folic acid 1 mg tablet 2 mg PO DAILY@0800 04/07/17 01/12/24 History methotrexate sodium 2.5 mg tablet 12.5 mg PO HERNANDEZ 04/07/17 01/12/24 History latanoprost 0.005 % eye drops 1 drp ophthalmic (eye) DAILY 08/15/20 01/12/24 History leucovorin calcium 15 mg tablet 15 mg PO ONCE 08/20/20 01/12/24 History hydroxyzine HCl 25 mg tablet 25 mg PO TID PRN anxiety #90 tabs 05/31/22 01/12/24 Rx alendronate 70 mg tablet 70 mg PO QWEEK #7 tabs 12/19/23 01/12/24 Rx Have you fallen in the past year?: No PFSH Medical History Murmur Hyperlipidemia FREDERIC (acute kidney injury) Health care maintenance Anxiety Chronic constipation Preoperative evaluation to rule out surgical contraindication Aupqt-Oysvmesbb-Yra te (WPW) syndrome Osteoporosis Glaucoma Factor 5 Leiden mutation, heterozygous Abnormal Pap smear of cervix Rheumatoid arthritis Surgical History History of eye surgery S/P abdominal hysterectomy History of S/P placement of cardiac pacemaker History of colposcopy Family History Father Myocardial infarction, Onset Age: 70 Arthritis Mother CVA (cerebral vascular accident) Factor 5 Leiden mutation, heterozygous Heart disease Social History Smoking Status: Never smoker alcohol intake: current alcohol intake frequency: holidays/special occasions only substance use type: does not use caffeine: Yes Type: coffee Number of servings: 3 what type of physical activity do you participate in: walking frequency: 3-4 times per week seatbelt use: always do you feel safe at home: Yes 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 ROS Const Const: Negative for fatigue or weakness ENT ENT: Negative for dizziness or balance problems Cardio Chest Pain: No Palpitations: No Edema: None Muscle aches with walking: None Resp Respiratory: Negative for SOB with activity, SOB at rest or SOB orthopnea SOB lying down GI GI: Negative nausea, vomiting or heartburn Musc Musc: Negative for muscle weakness or balance problems Neuro Neuro: Negative for dizziness, lightheadedness, near syncope, syncope or weakness Endo Endo: Negative for fatigue Cardiology Exam Const Appearance: cooperative, healthy appearing, comfortable, no acute distress and well developed Orientation: alert, awake and oriented x3 Head Head: normal to inspection Ears: hearing grossly normal bilaterally Nose: external nose normal Face and Sinus: face symmetric Mouth: oral mucosae normal, lip normal and moist mucous membranes Eyes General: appearance normal, both eyes and all related structures Eyelids: eyelids normal Conjunctivae: conjunctivae normal Pupils: PERRL EOM: EOM intact bilaterally Neck Neck: normal visual inspection and trachea midline; Negative no JVD Carotids: Negative bruit Chest Chest inspection: normal inspection of the chest Auscultation: Bilateral: (more content not included)... Normal [facility] Pacemaker Checkon 01-12-2024 Pacemaker Check [facility] [address] [place] [address]. [address] [place] [address] Pacemaker Check Date of Service: 01/12/241736 MR#: [id number] Acct: [id number] Name: GISEL SAWYER Madi Rep #: [id number] : 1955 From: Olivia Carlos Age/Sex: 68/F Location[place] [facility] [place] Status: Signed Billing Codes PM Device Codes: 53829 PM Dev Prog Eval, Dual Assessment and Plan Assessment and Plan (1) Presence of cardiac pacemaker: Status: Chronic (2) Paroxysmal atrial fibrillation: Status: Chronic (3) Bsqrg-Keecraptl-Jyv te syndrome: Status: Chronic 01/12/241737 Date Olivia Villalpando Signature: Date (if applicable) CC: Normal [facility] CBC W/Diff, Automatedon 07-0 3-2024 Absolute Lymph 2.73 X10 3/uL Normal 0.83-4.51 [facility] Comment on above: Performed By: #### L 500.4050, L100.0100 #### [facility] [address] [place], [address] Absolute Neut 4.2 X10 3/uL Normal 2.0-7.7 [facility] Comment on above: Performed By: #### L 500.4050, L100.0100 #### [facility] [address] [place], [address] Basophils/100 WBC (Bld) 0.6 % Normal 0-1 [facility] Comment on above: Performed By: #### L 500.4050, L100.0100 #### [facility] [address] [place], [address] Eosinophils/100 WBC (Bld) 1.0 % Normal 0-5 [facility] Comment on above: Performed By: #### L 500.4050, L100.0100 #### [facility] [address] [place], [address] Erythrocyte distribution width (RBC) [Ratio] 13.9 % Normal 11.6-14.6 [facility] Comment on above: Performed By: #### L 500.4050, L100.0100 #### [facility] [address] [place], [address] Hematocrit (Bld) [Volume fraction] 39.1 % Normal 37-47 [facility] Comment on above: Performed By: #### L 500.4050, L100.0100 #### [facility] [address] [place], [address] Hemoglobin (Bld) [Mass/Vol] 12.8 g/dL Normal 12.0-15.0 [facility] Comment on above: Performed By: #### L 500.4050, L100.0100 #### [facility] [address] [place], [address] IG% 0.300 Normal 0.0-0.9 [facility] Comment on above: Result Comment: IG% - Immature Granulocytes (promyelocytes, myelocytes and metamyelocytes) > 1% indicates that a LEFT SHIFT is Present. Performed By: #### L 500.4050, L100.0100 #### [facility] [address] [place], [address] Lymphocytes/100 WBC (Bld) 35.4 % Normal 19-41 [facility] Comment on above: Performed By: #### L 500.4050, L100.0100 #### [facility] [address] [place], [address] MCH (RBC) [Entitic mass] 30.3 pg Normal 27.0-32.0 [facility] Comment on above: Performed By: #### L 500.4050, L100.0100 #### [facility] [address] [place], [address] MCHC (RBC) [Mass/Vol] 32.7 g/dL Normal 32-36 [facility] Comment on above: Performed By: #### L 500.4050, L100.0100 #### [facility] [address] [place], [address] MCV (RBC) [Entitic vol] 92.7 fL Normal 81-99 [facility] Comment on above: Performed By: #### L 500.4050, L100.0100 #### [facility] [address] [place], [address] Monocytes/100 WBC (Bld) 8.2 % Normal 0-10 [facility] Comment on above: Performed By: #### L 500.4050, L100.0100 #### [facility] [address] [place], [address] Neutrophils/100 WBC (Bld) 54.5 % Normal 47-70 [facility] Comment on above: Performed By: #### L 500.4050, L100.0100 #### [facility] [address] [place], [address] Nucleated RBC (Bld) [#/Vol] 0 10*3/uL Normal 0-5 [facility] Comment on above: Performed By: #### L 500.4050, L100.0100 #### [facility] [address] [place], [address] Platelet mean volume (Bld) [Entitic vol] 11.1 fL Normal 6.2-12.0 [facility] Comment on above: Performed By: #### L 500.4050, L100.0100 #### [facility] [address] [place], [address] Platelets (Bld) [#/Vol] 160 10*3/uL Normal 150-450 [facility] Comment on above: Performed By: #### L 500.4050, L100.0100 #### [facility] [address] [place], [address] RBC (Bld) [#/Vol] 4.22 10*6/uL Normal 4.2-5.4 [facility] Comment on above: Performed By: #### L 500.4050, L100.0100 #### [facility] [address] [place], [address] RDW SD 46.8 fl High 35.1-43.9 [facility] Comment on above: Performed By: #### L 500.4050, L100.0100 #### [facility] [address] [place], [address] WBC (Bld) [#/Vol] 7.7 10*3/uL Normal 4.4-11.0 [facility] Comment on above: Performed By: #### L 500.4050, L100.0100 #### [facility] [address] [place], [address] Comprehensive Metabolic Prof ilon 11-09-2023 Albumin [Mass/Vol] 3.8 g/dL Normal 3.2-5.0 [facility] Comment on above: Performed By: #### L 500.4050, L100.0100 #### [facility] [address] [place], [address] Albumin/Globulin [Mass ratio] 1.2 {ratio} Normal 0.9-2.4 [facility] Comment on above: Performed By: #### L 500.4050, L100.0100 #### [facility] [address] [place], [address] ALK P 58 U/L Normal 45-117 [facility] Comment on above: Performed By: #### L 500.4050, L100.0100 #### [facility] [address] [place], [address] ALT [Catalytic activity/Vol] 27 U/L Normal 13-56 [facility] Comment on above: Performed By: #### L 500.4050, L100.0100 #### [facility] [address] [place], [address] AST [Catalytic activity/Vol] 22 U/L Normal 15-37 [facility] Comment on above: Performed By: #### L 500.4050, L100.0100 #### [facility] [address] [place], [address] Bilirubin [Mass/Vol] 0.30 mg/dL Normal 0.20-1.00 [facility] Comment on above: Result Comment: For patients on eltrombopag therapy, use of Dimension [place] TBIL is not recommended. Performed By: #### L 500.4050, L100.0100 #### [facility] [address] [place], [address] BUN/CRE 24.0 RATIO High 10-20 [facility] Comment on above: Performed By: #### L 500.4050, L100.0100 #### [facility] [address] [place], [address] CA,Total 9.5 mg/dL Normal 8.5-10.1 [facility] Comment on above: Performed By: #### L 500.4050, L100.0100 #### [facility] [address] [place], [address] Chloride [Moles/Vol] 106 mmol/L Normal 98-107 [facility] Comment on above: Performed By: #### L 500.4050, L100.0100 #### [facility] [address] [place], [address] CO2 [Moles/Vol] 25.0 mmol/L Normal 21.0-32.0 [facility] Comment on above: Performed By: #### L 500.4050, L100.0100 #### [facility] [address] [place], [address] Creatinine [Mass/Vol] 0.84 mg/dL Normal 0.55-1.02 [facility] Comment on above: Result Comment: The validity of the calculated GFR GFRAA in patients over 70 years has not been determined. Clinical correlation is essential. Performed By: #### L 500.4050, L100.0100 #### [facility] [address] [place], [address] EST GFR - AA 87 mL/min Normal >60 [facility] Comment on above: Result Comment: Afri can [place] GFR Calc Performed By: #### L 500.4050, L100.0100 #### [facility] [address] [place], [address] GAP 8 Normal 5-15 [facility] Comment on above: Performed By: #### L 500.4050, L100.0100 #### [facility] [address] [place], [address] GFR/1.73 sq M.predicted among non-blacks MDRD (S/P/Bld) [Vol rate/Area] 72 mL/min/{1.73_m2} Normal >60 [facility] Comment on above: Result Comment: Non- GFR Calc Performed By: #### L 500.4050, L100.0100 #### [facility] [address] [place], [address] Globulin (S) [Mass/Vol] 3.2 g/dL Normal 2.2-4.2 [facility] Comment on above: Performed By: #### L 500.4050, L100.0100 #### [facility] [address] [place], [address] Glucose [Mass/Vol] 92 mg/dL Normal 74-106 [facility] Comment on above: Performed By: #### L 500.4050, L100.0100 #### [facility] [address] [place], [address] Potassium [Moles/Vol] 3.7 mmol/L Normal 3.5-5.1 [facility] Comment on above: Performed By: #### L 500.4050, L100.0100 #### [facility] [address] [place], [address] Sodium [Moles/Vol] 139 mmol/L Normal 136-145 [facility] Comment on above: Performed By: #### L 500.4050, L100.0100 #### [facility] [address] [place], [address] T PROT 7.0 g/dL Normal 6.4-8.2 [facility] Comment on above: Performed By: #### L 500.4050, L100.0100 #### [facility] [address] [place], [address] Urea nitrogen [Mass/Vol] 20 mg/dL High 7-18 [facility] Comment on above: Performed By: #### L 500.4050, L100.0100 #### [facility] [address] [place], [address] DIAG MAMM W/CAD, UNILATon DIAG MAMM W/CAD, UNILAT [facility] [address] [place] [address] DIAG MAMM W/CAD, UNILAT MR#: [id number] Acct: [id number] Name: GISEL SAWYER Rep #: [id number] : 1955 F 68 From: Shahrira daniels MD PCP: Dr. Melba Young MD Status: [facility] Study: DIAG MAMM W/CAD, UNILAT Date of Exam: 11/02/23 Exam# [id number] Ordering Dr: Melba Young MD -[id number] MAMMOGRAPHY - UNILATERAL DIAGNOSTIC: RIGHT BREAST REASON FOR EXAM: Female, 68 years old. Repeat right MLO view. PERTINENT HISTORY: Non-contributory. TECHNIQUE: A repeat MLO view of the right breast was obtained to rule out possible artifact. Obtained. CAD: Full Field Digital Mammography with Computer Added Detection was performed. COMPARISON: Comparison is made with prior study done earlier today. FINDINGS: Breast Composition: The breasts are extremely dense, which lowers the sensitivity of mammography. There are no dominant masses or suspicious calcifications. No other significant abnormalities are identified. BI/DIAG MAMM W/CAD, UNILAT IMPRESSION: Negative unilateral diagnostic mammogram. Yearly followup mammogram recommended. (A) ASSESSMENT CATEGORY: BIRADS Category 1: Negative. A letter regarding these results will be sent to the patient by the facility within 30 days. Approximately 10% of breast cancers are not detected by mammography. A normal mammogram should not delay biopsy of a clinically suspicious abnormality. Electronically Signed: Shahriar Keane MD at 13:54 EDT Reading Location ID and State: [facility] / [place] , Service support , CC: Dr. Melba Young MD Web Master: Signed Normal [facility] SCRN MAMM (CAD)W/MOLLY BILATo n 11-02-2023 SCRN MAMM (CAD)W/MOLLY BILAT [facility] [address] [place], [place] [address] SCRN MAMM (CAD)W/MOLLY BILAT MR#: [id number] Acct: [id number] Name: GISEL SAWYER Rep #: [id number] : 1955 F 68 From: Shahriar daniels MD PCP: Dr. Melba Young MD Status: [facility] Study: SCRN MAMM (CAD)W/MOLLY BILAT Date of Exam: 10/08 10/30 Exam# [id number] Ordering Dr: Melba Young MD -[id number] MAMMOGRAPHY - BILATERAL SCREENING REASON FOR EXAM: Female, 68 years old. Routine annual screening examination. PERTINENT HISTORY: Non-contributory. History of prior left excisional breast biopsy. TECHNIQUE: Digital bilateral breast molly (3D mammographic acquisition) in the CC and MLO projections. 2-D mediolateral oblique (MLO) and craniocaudad (CC) views of both breasts were obtained. CAD: Full Field Digital Mammography with Computer Added Detection was performed. COMPARISON: Comparison is made with prior study February 08, 2022 and July 30, 2020. FINDINGS: Breast Composition: The breasts are extremely dense, which lowers the sensitivity of mammography. There are no dominant masses or suspicious calcifications. Stable scattered macrocalcifications . Tiny calcific densities are seen in the right axilla. This most likely represents residue from underarm deodorant. A repeat the mediolateral oblique view of the right breast is recommended without the ordering. No other significant abnormalities are identified. BI/SCRN MAMM (CAD)W/MOLLY BILAT IMPRESSION: Stable bilateral screening mammogram except for calcific densities in the right axilla most likely secondary to particles from deoderant. . A repeat mediolateral oblique view of the right breast is recommended. ASSESSMENT CATEGORY: BIRADS Category 0: Incomplete. Need additional imaging evaluation. A letter regarding these results will be sent to the patient by the facility within 30 days. Approximately 10% of breast cancers are not detected by mammography. A normal mammogram should not delay biopsy of a clinically suspicious abnormality. [id number] Electronically Signed: Shahriar Keane MD at 9:35 EDT , CC: Dr. Melba Young MD Web Master: Signed Normal [facility] Absolute lymphocyte countOrd ered By: Stephanie Orta on 08-19-2023 Lymphocytes Auto (Unsp spec) [#/Vol] 2.32 10*3/uL 0.83-4.51 [facility] Automated lymphocyte count a s percentage of total leukocytesOrdered By: Stephanie Orta on 08-19-2023 Lymphocytes/100 WBC Auto (Unsp spec) 35.2 % 19-41 [facility] Basophil percentageOrdered B y: Stephanie Orta on 08-19-2023 Basophils/100 WBC (Bld) 0.8 % 0-1 [facility] Bilirubin [Mass/Vol] 0.40 mg/dL 0.20-1.00 [facility] Comment on above: For patients on eltr ombopag therapy, use of Dimension [place] TBIL is not recommended. Chloride [Moles/Vol] 107 mmol/L 98-107 [facility] Eosinophils/100 WBC (Bld) 1.5 % 0-5 [facility] Glucose [Mass/Vol] 80 mg/dL 74-106 [facility] Hemoglobin (Bld) [Mass/Vol] 13.3 g/dL 12.0-15.0 [facility] Monocytes/100 WBC (Bld) 7.1 % 0-10 [facility] Neutrophils (Bld) [#/Vol] 3.6 10*3/uL 2.0-7.7 [facility] Neutrophils/100 WBC (Bld) 55.1 % 47-70 [facility] Potassium [Moles/Vol] 3.5 mmol/L 3.5-5.1 [facility] Protein [Mass/Vol] 7.4 g/dL 6.4-8.2 [facility] Sodium [Moles/Vol] 141 mmol/L 136-145 [facility] WBC (Bld) [#/Vol] 6.6 10*3/uL 4.4-11.0 [facility] Determination of erythrocyte mean corpuscular volume (MCV)Ordered By: Stephanie Orta on 08-19-2023 MCV (RBC) [Entitic vol] 94.0 fL 81-99 [facility] Erythrocyte distribution wid th ratioOrdered By: [facility] You on 08-19-2023 Erythrocyte distribution width (RBC) [Ratio] 14.0 % 11.6-14.6 [facility] Erythrocyte distribution wid th standard deviationOrdered By: [facility] You on 08-19-2023 Erythrocyte distribution width (RBC) [Entitic vol] 47.9 fL 35.1-43.9 [facility] Hematocrit Auto (Bld) [Volum e fraction]Ordered By: [facility] You on 08-19-2023 Hematocrit (Bld) [Volume fraction] 42.2 % 37-47 [facility] Immature granulocytes/100 WB C Auto (Bld)Ordered By: [facility] You on 08-19-2023 Immature granulocytes/100 WBC (Bld) 0.300 % 0.0-0.9 [facility] Comment on above: IG% - Immature Granu locytes (promyelocytes, myelocytes and metamyelocytes) > 1% indicates that a LEFT SHIFT is Present. Laboratory - Chemistry and C hemistry - challengeOrdered By: [facility] You on 08-19-2023 Albumin/Globulin [Mass ratio] 1.1 {ratio} 0.9-2.4 [facility] ALP [Catalytic activity/Vol] 65 U/L 45-117 [facility] ALT [Catalytic activity/Vol] 29 U/L 13-56 [facility] CO2 [Moles/Vol] 30.0 mmol/L 21.0-32.0 [facility] Globulin (S) [Mass/Vol] 3.6 g/dL 2.2-4.2 [facility] Urea nitrogen/Creatinine [Mass ratio] 18.4 mg/mg 10-20 [facility] - Hematology and Cell countsOrdered By: Stephaniemichelle Orta on 08-19-2023 MCH (RBC) [Entitic mass] 29.6 pg 27.0-32.0 [facility] MCHC (RBC) [Mass/Vol] 31.5 g/dL 32-36 [facility] Nucleated RBC/100 WBC (Bld) [Ratio] 0 % 0-5 [facility] Platelet mean volume (Bld) [Entitic vol] 11.8 fL 6.2-12.0 [facility] Platelets (Bld) [#/Vol] 170 10*3/uL 150-450 [facility] No Panel InformationOrdered By: Stephanie Orta on 08-19-2023 Estimated GFR (MDRD) Amer 78 mL/min >60 [facility] Comment on above: GFR Calc Estimated GFR (MDRD) Non-Af Amer 64 mL/min >60 [facility] Comment on above: Non- GFR Calc RBC Auto (Bld) [#/Vol]Ordere d By: Stephanie Orta on 08-19-2023 RBC (Bld) [#/Vol] 4.49 10*6/uL 4.2-5.4 [facility] Serum or plasma calcium blessing urement (mass/volume)Ordered By: Stephanie Orta on 08-19-2023 Calcium [Mass/Vol] 9.4 mg/dL 8.5-10.1 [facility] Serum or plasma creatinine m easurement (mass/volume)Ordered By: Stephanie Orta on 08-19-2023 Creatinine [Mass/Vol] 0.92 mg/dL 0.55-1.02 [facility] Comment on above: The validity of the calculated GFR & GFRAA in patients over 70 years has not been determined. Clinical correlation is essential. Serum or plasma urea nitroge n measurement (mass/volume)Ordered By: Stephanie Orta on 08-19-2023 Urea nitrogen [Mass/Vol] 17 mg/dL 7-18 [facility] Thin prep Papanicolaou smear with manual screeningOrdered By: Stephanie Orta on 08-19-2023 Thin prep Papanicolaou smear with manual screening 3.8 g/dL 3.2-5.0 [facility] Thin prep Papanicolaou smear with manual screening 21 U/L 15-37 [facility] Thin prep Papanicolaou smear with manual screening 4 5-15 [facility] Absolute lymphocyte countOrd ered By: Stephanie Orta on 05-25-2023 Lymphocytes Auto (Unsp spec) [#/Vol] 2.16 10*3/uL 0.83-4.51 [facility] Automated lymphocyte count a s percentage of total leukocytesOrdered By: Stephanie Orta on 05-25-2023 Lymphocytes/100 WBC Auto (Unsp spec) 27.3 % 19-41 [facility] Basophil percentageOrdered B y: Stephanie Orta on 05-25-2023 Basophils/100 WBC (Bld) 0.6 % 0-1 [facility] Bilirubin [Mass/Vol] 0.40 mg/dL 0.20-1.00 [facility] Comment on above: For patients on eltr ombopag therapy, use of Dimension [place] TBIL is not recommended. Chloride [Moles/Vol] 109 mmol/L 98-107 [facility] Eosinophils/100 WBC (Bld) 1.1 % 0-5 [facility] Glucose [Mass/Vol] 107 mg/dL 74-106 [facility] Comment on above: Fasting Glucose resu lt from 100 to 125 mg/dL suggests IMPAIRED HOMEOSTASIS per A.D.A. criteria. Hemoglobin (Bld) [Mass/Vol] 13.5 g/dL 12.0-15.0 [facility] Monocytes/100 WBC (Bld) 6.8 % 0-10 [facility] Neutrophils (Bld) [#/Vol] 5.0 10*3/uL 2.0-7.7 [facility] Neutrophils/100 WBC (Bld) 63.7 % 47-70 [facility] Potassium [Moles/Vol] 3.7 mmol/L 3.5-5.1 [facility] Protein [Mass/Vol] 7.2 g/dL 6.4-8.2 [facility] Sodium [Moles/Vol] 142 mmol/L 136-145 [facility] WBC (Bld) [#/Vol] 7.9 10*3/uL 4.4-11.0 [facility] Determination of erythrocyte mean corpuscular volume (MCV)Ordered By: Stephanie Orta on 05-25-2023 MCV (RBC) [Entitic vol] 94.4 fL 81-99 [facility] Erythrocyte distribution wid th ratioOrdered By: Stephanie Orta on 05-25-2023 Erythrocyte distribution width (RBC) [Ratio] 13.9 % 11.6-14.6 [facility] Erythrocyte distribution wid th standard deviationOrdered By: Stephanie Orta on 05-25-2023 Erythrocyte distribution width (RBC) [Entitic vol] 48.7 fL 35.1-43.9 [facility] Hematocrit Auto (Bld) [Volum e fraction]Ordered By: Stephanie Otra on 05-25-2023 Hematocrit (Bld) [Volume fraction] 42.2 % 37-47 [facility] Immature granulocytes/100 WB C Auto (Bld)Ordered By: Stephaniemichelle Orta on 05-25-2023 Immature granulocytes/100 WBC (Bld) 0.500 % 0.0-0.9 [facility] Comment on above: IG% - Immature Granu locytes (promyelocytes, myelocytes and metamyelocytes) > 1% indicates that a LEFT SHIFT is Present. Laboratory - Chemistry and C hemistry - challengeOrdered By: [facility] You on 05-25-2023 Albumin/Globulin [Mass ratio] 1.1 {ratio} 0.9-2.4 [facility] ALP [Catalytic activity/Vol] 60 U/L 45-117 [facility] ALT [Catalytic activity/Vol] 35 U/L 13-56 [facility] CO2 [Moles/Vol] 29.0 mmol/L 21.0-32.0 [facility] Globulin (S) [Mass/Vol] 3.5 g/dL 2.2-4.2 [facility] Urea nitrogen/Creatinine [Mass ratio] 23.7 mg/mg 10-20 [facility] - Hematology and Cell countsOrdered By: Stephaniemichelle Orta on 05-25-2023 MCH (RBC) [Entitic mass] 30.2 pg 27.0-32.0 [facility] MCHC (RBC) [Mass/Vol] 32.0 g/dL 32-36 [facility] Nucleated RBC/100 WBC (Bld) [Ratio] 0 % 0-5 [facility] Platelets (Bld) [#/Vol] 210 10*3/uL 150-450 [facility] No Panel InformationOrdered By: Stephanie Orta on 05-25-2023 Estimated GFR (MDRD) Amer 111 mL/min >60 [facility] Comment on above: GFR Calc Estimated GFR (MDRD) Non-Af Amer 92 mL/min >60 [facility] Comment on above: Non- GFR Calc Platelet mean volume Myles-Ec ker (Bld) [Entitic vol]Ordered By: Stephanie Orta on 05-25-2023 Platelet mean volume (Bld) [Entitic vol] 10.8 fL 6.2-12.0 [facility] RBC Auto (Bld) [#/Vol]Ordere d By: Stephanie Orta on 05-25-2023 RBC (Bld) [#/Vol] 4.47 10*6/uL 4.2-5.4 [facility] Serum or plasma calcium blessing urement (mass/volume)Ordered By: Stephanie Orta on 05-25-2023 Calcium [Mass/Vol] 9.2 mg/dL 8.5-10.1 [facility] Serum or plasma creatinine m easurement (mass/volume)Ordered By: Stephanie Orta on 05-25-2023 Creatinine [Mass/Vol] 0.68 mg/dL 0.55-1.02 [facility] Comment on above: The validity of the calculated GFR & GFRAA in patients over 70 years has not been determined. Clinical correlation is essential. Serum or plasma urea nitroge n measurement (mass/volume)Ordered By: Stephanie Orta on 05-25-2023 Urea nitrogen [Mass/Vol] 16 mg/dL 7-18 [facility] Thin prep Papanicolaou smear with manual screeningOrdered By: Stephanie Orta on 05-25-2023 Thin prep Papanicolaou smear with manual screening 3.7 g/dL 3.2-5.0 [facility] Thin prep Papanicolaou smear with manual screening 28 U/L 15-37 [facility] Thin prep Papanicolaou smear with manual screening 4 5-15 [facility] Absolute lymphocyte countOrd ered By: Stephanie Orta on 02-18-2023 Lymphocytes Auto (Unsp spec) [#/Vol] 2.31 10*3/uL 0.83-4.51 [facility] Basophil percentageOrdered B y: Stephanie Orta on 02-18-2023 Basophils/100 WBC (Bld) 0.7 % 0-1 [facility] Bilirubin [Mass/Vol] 0.30 mg/dL 0.20-1.00 [facility] Comment on above: For patients on eltr ombopag therapy, use of Dimension [place] TBIL is not recommended. Chloride [Moles/Vol] 109 mmol/L 98-107 [facility] Eosinophils/100 WBC (Bld) 1.2 % 0-5 [facility] Glucose [Mass/Vol] 99 mg/dL 74-106 [facility] Neutrophils (Bld) [#/Vol] 3.7 10*3/uL 2.0-7.7 [facility] Neutrophils/100 WBC (Bld) 54.7 % 47-70 [facility] Potassium [Moles/Vol] 3.9 mmol/L 3.5-5.1 [facility] Protein [Mass/Vol] 7.3 g/dL 6.4-8.2 [facility] Sodium [Moles/Vol] 140 mmol/L 136-145 [facility] WBC (Bld) [#/Vol] 6.8 10*3/uL 4.4-11.0 [facility] Blood erythrocytes count (nu mber/volume)Ordered By: Stephanie Orta on 02-18-2023 RBC (Bld) [#/Vol] 4.26 10*6/uL 4.2-5.4 [facility] Blood hemoglobin measurement (mass/volume)Ordered By: Stephanie Orta on 02-18-2023 Hemoglobin (Bld) [Mass/Vol] 12.8 g/dL 12.0-15.0 [facility] Blood lymphocytes/100 leukoc ytesOrdered By: Stephanie Orta on 02-18-2023 Lymphocytes/100 WBC (Bld) 34.0 % 19-41 [facility] Blood monocytes/100 leukocyt esOrdered By: Stephanie Orta on 02-18-2023 Monocytes/100 WBC (Bld) 9.1 % 0-10 [facility] Blood platelet mean volumeOr dered By: Stephanie Orta on 02-18-2023 Platelet mean volume (Bld) [Entitic vol] 10.9 fL 6.2-12.0 [facility] Determination of erythrocyte mean corpuscular volume (MCV)Ordered By: Stephanie Orta on 02-18-2023 MCV (RBC) [Entitic vol] 96.9 fL 81-99 [facility] Hematocrit Auto (Bld) [Volum e fraction]Ordered By: Stephaniemichelle Orta on 02-18-2023 Hematocrit (Bld) [Volume fraction] 41.3 % 37-47 [facility] Laboratory - Chemistry and C hemistry - challengeOrdered By: Stephaniemichelle Orta on 02-18-2023 ALP [Catalytic activity/Vol] 67 U/L 45-117 [facility] ALT [Catalytic activity/Vol] 31 U/L 13-56 [facility] CO2 [Moles/Vol] 26.0 mmol/L 21.0-32.0 [facility] Globulin (S) [Mass/Vol] 3.6 g/dL 2.2-4.2 [facility] Urea nitrogen/Creatinine [Mass ratio] 24.5 mg/mg 10-20 [facility] Laboratory - Hematology and Cell countsOrdered By: [facility] on 02-18-2023 Erythrocyte distribution width (RBC) [Entitic vol] 49.7 fL 35.1-43.9 [facility] Erythrocyte distribution width (RBC) [Ratio] 14.1 % 11.6-14.6 [facility] Immature granulocytes/100 WBC (Bld) 0.300 % 0.0-0.9 [facility] Comment on above: IG% - Immature Granu locytes (promyelocytes, myelocytes and metamyelocytes) > 1% indicates that a LEFT SHIFT is Present. MCH (RBC) [Entitic mass] 30.0 pg 27.0-32.0 [facility] Nucleated RBC/100 WBC (Bld) [Ratio] 0 % 0-5 [facility] MCHC Auto (RBC) [Mass/Vol]Or dered By: Stephaniemichelle Orta on 02-18-2023 MCHC (RBC) [Mass/Vol] 31.0 g/dL 32-36 [facility] No Panel InformationOrdered By: Stephaniemichelle Orta on 02-18-2023 Estimated GFR (MDRD) Amer 73 mL/min >60 [facility] Comment on above: GFR Calc Estimated GFR (MDRD) Non-Af Amer 60 mL/min >60 [facility] Comment on above: Non- GFR Calc Platelets bldOrdered By: Maria Del Rosario Orta on 02-18-2023 Platelets (Bld) [#/Vol] 191 10*3/uL 150-450 [facility] Serum or plasma albumin blessing urement (mass/volume)Ordered By: Stephanie Orta on 02-18-2023 Albumin [Mass/Vol] 3.7 g/dL 3.2-5.0 [facility] Serum or plasma albumin/glob ulin mass ratioOrdered By: Stephanie Orta on 02-18-2023 Albumin/Globulin [Mass ratio] 1.0 {ratio} 0.9-2.4 [facility] Serum or plasma calcium blessing urement (mass/volume)Ordered By: Stephanie Orta on 02-18-2023 Calcium [Mass/Vol] 9.4 mg/dL 8.5-10.1 [facility] Serum or plasma creatinine m easurement (mass/volume)Ordered By: Stephanie Orta on 02-18-2023 Creatinine [Mass/Vol] 0.98 mg/dL 0.55-1.02 [facility] Comment on above: The validity of the calculated GFR & GFRAA in patients over 70 years has not been determined. Clinical correlation is essential. Serum or plasma urea nitroge n measurement (mass/volume)Ordered By: Stephanie Orta on 02-18-2023 Urea nitrogen [Mass/Vol] 24 mg/dL 7-18 [facility] Thin prep Papanicolaou smear with manual screeningOrdered By: Stephanie Orta on 02-18-2023 Thin prep Papanicolaou smear with manual screening 19 U/L 15-37 [facility] Thin prep Papanicolaou smear with manual screening 5 5-15 [facility] Absolute lymphocyte countOrd ered By: Stephanie Orta on 11-30-2022 Lymphocytes Auto (Unsp spec) [#/Vol] 2.21 10*3/uL 0.83-4.51 [facility] Basophil percentageOrdered B y: Stephanie Orta on 11-30-2022 Basophils/100 WBC (Bld) 0.7 % 0-1 [facility] Bilirubin [Mass/Vol] 0.20 mg/dL 0.20-1.00 [facility] Comment on above: For patients on eltr ombopag therapy, use of Dimension [place] TBIL is not recommended. Chloride [Moles/Vol] 109 mmol/L 98-107 [facility] Eosinophils/100 WBC (Bld) 1.9 % 0-5 [facility] Glucose [Mass/Vol] 103 mg/dL 74-106 [facility] Comment on above: Fasting Glucose resu lt from 100 to 125 mg/dL suggests IMPAIRED HOMEOSTASIS per A.D.A. criteria. Neutrophils (Bld) [#/Vol] 4.1 10*3/uL 2.0-7.7 [facility] Neutrophils/100 WBC (Bld) 57.4 % 47-70 [facility] Potassium [Moles/Vol] 3.8 mmol/L 3.5-5.1 [facility] Protein [Mass/Vol] 7.1 g/dL 6.4-8.2 [facility] Sodium [Moles/Vol] 140 mmol/L 136-145 [facility] WBC (Bld) [#/Vol] 7.2 10*3/uL 4.4-11.0 [facility] Blood erythrocytes count (nu mber/volume)Ordered By: Stephanie Orta on 11-30-2022 RBC (Bld) [#/Vol] 4.30 10*6/uL 4.2-5.4 [facility] Blood hemoglobin measurement (mass/volume)Ordered By: Stephanie Orta on 11-30-2022 Hemoglobin (Bld) [Mass/Vol] 13.2 g/dL 12.0-15.0 [facility] Blood lymphocytes/100 leukoc ytesOrdered By: Stephanie Orta on 11-30-2022 Lymphocytes/100 WBC (Bld) 30.6 % 19-41 [facility] Blood monocytes/100 leukocyt esOrdered By: Stephanie Orta on 11-30-2022 Monocytes/100 WBC (Bld) 9.3 % 0-10 [facility] Blood platelet mean volumeOr dered By: Stephanie Orta on 11-30-2022 Platelet mean volume (Bld) [Entitic vol] 11.3 fL 6.2-12.0 [facility] Determination of erythrocyte mean corpuscular volume (MCV)Ordered By: Stephanie Orta on 11-30-2022 MCV (RBC) [Entitic vol] 94.4 fL 81-99 [facility] Hematocrit Auto (Bld) [Volum e fraction]Ordered By: Stephanie Orta on 11-30-2022 Hematocrit (Bld) [Volume fraction] 40.6 % 37-47 [facility] Laboratory - Chemistry and C hemistry - challengeOrdered By: [facility] You on 11-30-2022 ALP [Catalytic activity/Vol] 67 U/L 45-117 [facility] ALT [Catalytic activity/Vol] 31 U/L 13-56 [facility] CO2 [Moles/Vol] 26.0 mmol/L 21.0-32.0 [facility] Globulin (S) [Mass/Vol] 3.4 g/dL 2.2-4.2 [facility] Urea nitrogen/Creatinine [Mass ratio] 21.9 mg/mg 10-20 [facility] - Hematology and Cell countsOrdered By: Stephaniemichelle Orta on 11-30-2022 Erythrocyte distribution width (RBC) [Entitic vol] 46.5 fL 35.1-43.9 [facility] Erythrocyte distribution width (RBC) [Ratio] 13.5 % 11.6-14.6 [facility] Immature granulocytes/100 WBC (Bld) 0.100 % 0.0-0.9 [facility] Comment on above: IG% - Immature Granu locytes (promyelocytes, myelocytes and metamyelocytes) > 1% indicates that a LEFT SHIFT is Present. MCH (RBC) [Entitic mass] 30.7 pg 27.0-32.0 [facility] Nucleated RBC/100 WBC (Bld) [Ratio] 0 % 0-5 [facility] MCHC Auto (RBC) [Mass/Vol]Or dered By: Stephanie Orta on 11-30-2022 MCHC (RBC) [Mass/Vol] 32.5 g/dL 32-36 [facility] No Panel InformationOrdered By: Stephanie Orta on 11-30-2022 Estimated GFR (MDRD) Amer 67 mL/min >60 [facility] Comment on above: GFR Calc Estimated GFR (MDRD) Non-Af Amer 56 mL/min >60 [facility] Comment on above: Non- GFR Calc Platelets bldOrdered By: Maria Del Rosario Orta on 11-30-2022 Platelets (Bld) [#/Vol] 156 10*3/uL 150-450 [facility] Serum or plasma albumin blessing urement (mass/volume)Ordered By: Stephanie Orta on 11-30-2022 Albumin [Mass/Vol] 3.7 g/dL 3.2-5.0 [facility] Serum or plasma albumin/glob ulin mass ratioOrdered By: Stephanie Orta on 11-30-2022 Albumin/Globulin [Mass ratio] 1.1 {ratio} 0.9-2.4 [facility] Serum or plasma calcium blessing urement (mass/volume)Ordered By: Stephanie Orta on 11-30-2022 Calcium [Mass/Vol] 9.2 mg/dL 8.5-10.1 [facility] Serum or plasma creatinine m easurement (mass/volume)Ordered By: Stephanie Orta on 11-30-2022 Creatinine [Mass/Vol] 1.05 mg/dL 0.55-1.02 [facility] Comment on above: The validity of the calculated GFR & GFRAA in patients over 70 years has not been determined. Clinical correlation is essential. Serum or plasma urea nitroge n measurement (mass/volume)Ordered By: Stephanie Orta on 11-30-2022 Urea nitrogen [Mass/Vol] 23 mg/dL 7-18 [facility] Thin prep Papanicolaou smear with manual screeningOrdered By: Stephanie Orta on 11-30-2022 Thin prep Papanicolaou smear with manual screening 26 U/L 15-37 [facility] Thin prep Papanicolaou smear with manual screening 5 5-15 [facility] Absolute lymphocyte countOrd ered By: Dr. Orta on 09-02-2022 Lymphocytes Auto (Unsp spec) [#/Vol] 2.64 10*3/uL 0.83-4.51 [facility] Basophil percentageOrdered B y: Dr. Orta on 09-02-2022 Basophils/100 WBC (Bld) 0.7 % 0-1 [facility] Bilirubin [Mass/Vol] 0.40 mg/dL 0.20-1.00 [facility] Comment on above: For patients on eltr ombopag therapy, use of Dimension [place] TBIL is not recommended. Chloride [Moles/Vol] 107 mmol/L 98-107 [facility] Eosinophils/100 WBC (Bld) 1.0 % 0-5 [facility] Glucose [Mass/Vol] 104 mg/dL 74-106 [facility] Comment on above: Fasting Glucose resu lt from 100 to 125 mg/dL suggests IMPAIRED HOMEOSTASIS per A.D.A. criteria. Neutrophils (Bld) [#/Vol] 3.9 10*3/uL 2.0-7.7 [facility] Neutrophils/100 WBC (Bld) 53.3 % 47-70 [facility] Potassium [Moles/Vol] 3.8 mmol/L 3.5-5.1 [facility] Protein [Mass/Vol] 7.7 g/dL 6.4-8.2 [facility] Sodium [Moles/Vol] 138 mmol/L 136-145 [facility] WBC (Bld) [#/Vol] 7.3 10*3/uL 4.4-11.0 [facility] Blood erythrocytes count (nu mber/volume)Ordered By: Dr. Orta on 09-02-2022 RBC (Bld) [#/Vol] 4.41 10*6/uL 4.2-5.4 [facility] Blood hemoglobin measurement (mass/volume)Ordered By: Dr. Orta on 09-02-2022 Hemoglobin (Bld) [Mass/Vol] 13.5 g/dL 12.0-15.0 [facility] Blood lymphocytes/100 leukoc ytesOrdered By: Dr. Orta on 09-02-2022 Lymphocytes/100 WBC (Bld) 36.1 % 19-41 [facility] Blood monocytes/100 leukocyt esOrdered By: Dr. Orta on 09-02-2022 Monocytes/100 WBC (Bld) 8.6 % 0-10 [facility] Blood platelet mean volumeOr dered By: Dr. Orta on 09-02-2022 Platelet mean volume (Bld) [Entitic vol] 11.6 fL 6.2-12.0 [facility] Determination of erythrocyte mean corpuscular volume (MCV)Ordered By: Dr. Orta on 09-02-2022 MCV (RBC) [Entitic vol] 95.0 fL 81-99 [facility] Hematocrit Auto (Bld) [Volum e fraction]Ordered By: Dr. Orta on 09-02-2022 Hematocrit (Bld) [Volume fraction] 41.9 % 37-47 [facility] Laboratory - Chemistry and C hemistry - challengeOrdered By: Dr. Orta on 09-02-2022 ALP [Catalytic activity/Vol] 61 U/L 45-117 [facility] ALT [Catalytic activity/Vol] 43 U/L 13-56 [facility] CO2 [Moles/Vol] 28.0 mmol/L 21.0-32.0 [facility] Globulin (S) [Mass/Vol] 3.8 g/dL 2.2-4.2 [facility] Urea nitrogen/Creatinine [Mass ratio] 25.6 mg/mg 10-20 [facility] - Hematology and Cell countsOrdered By: Dr. Orta on 09-02-2022 Erythrocyte distribution width (RBC) [Entitic vol] 47.9 fL 35.1-43.9 [facility] Erythrocyte distribution width (RBC) [Ratio] 13.7 % 11.6-14.6 [facility] Immature granulocytes/100 WBC (Bld) 0.300 % 0.0-0.9 [facility] Comment on above: IG% - Immature Granu locytes (promyelocytes, myelocytes and metamyelocytes) > 1% indicates that a LEFT SHIFT is Present. MCH (RBC) [Entitic mass] 30.6 pg 27.0-32.0 [facility] Nucleated RBC/100 WBC (Bld) [Ratio] 0 % 0-5 [facility] MCHC Auto (RBC) [Mass/Vol]Or dered By: Dr. Orta on 09-02-2022 MCHC (RBC) [Mass/Vol] 32.2 g/dL 32-36 [facility] No Panel InformationOrdered By: Dr. Orta on 09-02-2022 Estimated GFR (MDRD) Amer 95 mL/min >60 [facility] Comment on above: GFR Calc Estimated GFR (MDRD) Non-Af Amer 78 mL/min >60 [facility] Comment on above: Non- GFR Calc Platelets bldOrdered By: Dr. Orta on 09-02-2022 Platelets (Bld) [#/Vol] 154 10*3/uL 150-450 [facility] Serum or plasma albumin blessing urement (mass/volume)Ordered By: Dr. Orta on 09-02-2022 Albumin [Mass/Vol] 3.9 g/dL 3.2-5.0 [facility] Serum or plasma albumin/glob ulin mass ratioOrdered By: Dr. Orta on 09-02-2022 Albumin/Globulin [Mass ratio] 1.0 {ratio} 0.9-2.4 [facility] Serum or plasma calcium blessing urement (mass/volume)Ordered By: Dr. Orta on 09-02-2022 Calcium [Mass/Vol] 9.5 mg/dL 8.5-10.1 [facility] Serum or plasma creatinine m easurement (mass/volume)Ordered By: Dr. Orta on 09-02-2022 Creatinine [Mass/Vol] 0.78 mg/dL 0.55-1.02 [facility] Comment on above: The validity of the calculated GFR & GFRAA in patients over 70 years has not been determined. Clinical correlation is essential. Serum or plasma urea nitroge n measurement (mass/volume)Ordered By: Dr. Orta on 09-02-2022 Urea nitrogen [Mass/Vol] 20 mg/dL 7-18 [facility] Thin prep Papanicolaou smear with manual screeningOrdered By: Dr. Orta on 09-02-2022 Thin prep Papanicolaou smear with manual screening 26 U/L 15-37 [facility] Thin prep Papanicolaou smear with manual screening 3 5-15 [facility] Absolute lymphocyte countOrd ered By: Dr. Young on 06-18-2022 Lymphocytes Auto (Unsp spec) [#/Vol] 2.47 10*3/uL 0.83-4.51 [facility] Basophil percentageOrdered B y: Dr. Young on 06-18-2022 Basophils/100 WBC (Bld) 0.7 % 0-1 [facility] Eosinophils/100 WBC (Bld) 0.9 % 0-5 [facility] Neutrophils (Bld) [#/Vol] 4.4 10*3/uL 2.0-7.7 [facility] Neutrophils/100 WBC (Bld) 57.7 % 47-70 [facility] WBC (Bld) [#/Vol] 7.6 10*3/uL 4.4-11.0 [facility] Bilirubin [Mass/Vol] 0.30 mg/dL 0.20-1.00 [facility] Comment on above: For patients on eltr ombopag therapy, use of Dimension [place] TBIL is not recommended. Chloride [Moles/Vol] 107 mmol/L 98-107 [facility] Glucose [Mass/Vol] 101 mg/dL 74-106 [facility] Comment on above: Fasting Glucose resu lt from 100 to 125 mg/dL suggests IMPAIRED HOMEOSTASIS per A.D.A. criteria. Potassium [Moles/Vol] 4.0 mmol/L 3.5-5.1 [facility] Protein [Mass/Vol] 7.5 g/dL 6.4-8.2 [facility] Sodium [Moles/Vol] 142 mmol/L 136-145 [facility] Blood erythrocytes count (nu mber/volume)Ordered By: Dr. Young on 06-18-2022 RBC (Bld) [#/Vol] 4.40 10*6/uL 4.2-5.4 [facility] Blood hemoglobin measurement (mass/volume)Ordered By: Dr. Young on 06-18-2022 Hemoglobin (Bld) [Mass/Vol] 13.3 g/dL 12.0-15.0 [facility] Blood lymphocytes/100 leukoc ytesOrdered By: Dr. Young on 06-18-2022 Lymphocytes/100 WBC (Bld) 32.4 % 19-41 [facility] Blood monocytes/100 leukocyt esOrdered By: Dr. Young on 06-18-2022 Monocytes/100 WBC (Bld) 7.9 % 0-10 [facility] Blood platelet mean volumeOr dered By: Dr. Young on 06-18-2022 Platelet mean volume (Bld) [Entitic vol] 11.3 fL 6.2-12.0 [facility] Determination of erythrocyte mean corpuscular volume (MCV)Ordered By: Dr. Young on 06-18-2022 MCV (RBC) [Entitic vol] 95.0 fL 81-99 [facility] Hematocrit Auto (Bld) [Volum e fraction]Ordered By: Dr. Young on 06-18-2022 Hematocrit (Bld) [Volume fraction] 41.8 % 37-47 [facility] - Chemistry and C hemistry - challengeOrdered By: Dr. Young on 06-18-2022 ALP [Catalytic activity/Vol] 50 U/L 45-117 [facility] ALT [Catalytic activity/Vol] 31 U/L 13-56 [facility] CO2 [Moles/Vol] 27.0 mmol/L 21.0-32.0 [facility] Globulin (S) [Mass/Vol] 3.6 g/dL 2.2-4.2 [facility] Urea nitrogen/Creatinine [Mass ratio] 20.1 mg/mg 10-20 [facility] - Hematology and Cell countsOrdered By: Dr. Young on 06-18-2022 Erythrocyte distribution width (RBC) [Entitic vol] 48.5 fL 35.1-43.9 [facility] Erythrocyte distribution width (RBC) [Ratio] 13.9 % 11.6-14.6 [facility] Immature granulocytes/100 WBC (Bld) 0.400 % 0.0-0.9 [facility] Comment on above: IG% - Immature Granu locytes (promyelocytes, myelocytes and metamyelocytes) > 1% indicates that a LEFT SHIFT is Present. MCH (RBC) [Entitic mass] 30.2 pg 27.0-32.0 [facility] Nucleated RBC/100 WBC (Bld) [Ratio] 0 % 0-5 [facility] MCHC Auto (RBC) [Mass/Vol]Or dered By: Dr. Young on 06-18-2022 MCHC (RBC) [Mass/Vol] 31.8 g/dL 32-36 [facility] No Panel InformationOrdered By: Dr. Young on 06-18-2022 Estimated GFR (MDRD) Amer 72 mL/min >60 [facility] Comment on above: GFR Calc Estimated GFR (MDRD) Non-Af Amer 59 mL/min >60 [facility] Comment on above: Non- GFR Calc Vitamin D 25-Hydroxy 104.3 ng/mL [facility] Comment on above: Vitamin D 25(OH) Sta tus Range Deficiency <20 ng/mL (50nmol/L) Insufficiency 20 - 30 ng/mL (50 - 75 nmol/L) Sufficiency 30 - 100 ng/mL (75 - 250 nmol/L) Toxicity >100 ng/mL (>250 nmol/L)Evidence suggests that patients undergoing fluorescein dye angiography can retain small amounts of fluorescein in the body for up to 48 to 72 hours post-treatment. In the cases of patients with renal insufficiency, retention could be much longer. Samples containing fluorescein can produce falsely elevated values when tested with the [employer] Vitamin D assay. With fluorescein interference, observed Vitamin D values can be as high as >150 ng/mL (>375 nmol/L). Samples should be resubmitted post fluorescein clearance to ensure there is no interference with Vitamin D test results. Platelets bldOrdered By: Dr. Young on 06-18-2022 Platelets (Bld) [#/Vol] 159 10*3/uL 150-450 [facility] Serum or plasma albumin blessing urement (mass/volume)Ordered By: Dr. Young on 06-18-2022 Albumin [Mass/Vol] 3.9 g/dL 3.2-5.0 [facility] Serum or plasma albumin/glob ulin mass ratioOrdered By: Dr. Young on 06-18-2022 Albumin/Globulin [Mass ratio] 1.1 {ratio} 0.9-2.4 [facility] Serum or plasma calcium blessing urement (mass/volume)Ordered By: Dr. Young on 06-18-2022 Calcium [Mass/Vol] 9.1 mg/dL 8.5-10.1 [facility] Serum or plasma creatinine m easurement (mass/volume)Ordered By: Dr. Young on 06-18-2022 Creatinine [Mass/Vol] 0.99 mg/dL 0.55-1.02 [facility] Comment on above: The validity of the calculated GFR & GFRAA in patients over 70 years has not been determined. Clinical correlation is essential. Serum or plasma urea nitroge n measurement (mass/volume)Ordered By: Dr. Young on 06-18-2022 Urea nitrogen [Mass/Vol] 20 mg/dL 7-18 [facility] Thin prep Papanicolaou smear with manual screeningOrdered By: Dr. Young on 06-18-2022 Thin prep Papanicolaou smear with manual screening 20 U/L 15-37 [facility] Thin prep Papanicolaou smear with manual screening 8 5-15 [facility] Absolute lymphocyte countOrd ered By: Dr. Orta on 03-29-2022 Lymphocytes Auto (Unsp spec) [#/Vol] 1.87 10*3/uL 0.83-4.51 [facility] Basophil percentageOrdered B y: Dr. Orta on 03-29-2022 Basophils/100 WBC (Bld) 0.7 % 0-1 [facility] Bilirubin [Mass/Vol] 0.40 mg/dL 0.20-1.00 [facility] Comment on above: For patients on eltr ombopag therapy, use of Dimension [place] TBIL is not recommended. Chloride [Moles/Vol] 105 mmol/L 98-107 [facility] Eosinophils/100 WBC (Bld) 0.4 % 0-5 [facility] Glucose [Mass/Vol] 86 mg/dL 74-106 [facility] Neutrophils (Bld) [#/Vol] 4.9 10*3/uL 2.0-7.7 [facility] Neutrophils/100 WBC (Bld) 65.5 % 47-70 [facility] Potassium [Moles/Vol] 3.8 mmol/L 3.5-5.1 [facility] Protein [Mass/Vol] 7.5 g/dL 6.4-8.2 [facility] Sodium [Moles/Vol] 139 mmol/L 136-145 [facility] WBC (Bld) [#/Vol] 7.4 10*3/uL 4.4-11.0 [facility] Blood erythrocytes count (nu mber/volume)Ordered By: Dr. Orta on 03-29-2022 RBC (Bld) [#/Vol] 4.51 10*6/uL 4.2-5.4 [facility] Blood hemoglobin measurement (mass/volume)Ordered By: Dr. Orta on 03-29-2022 Hemoglobin (Bld) [Mass/Vol] 13.9 g/dL 12.0-15.0 [facility] Blood lymphocytes/100 leukoc ytesOrdered By: Dr. Orta on 03-29-2022 Lymphocytes/100 WBC (Bld) 25.2 % 19-41 [facility] Blood monocytes/100 leukocyt esOrdered By: Dr. Orta on 03-29-2022 Monocytes/100 WBC (Bld) 8.1 % 0-10 [facility] Blood platelet mean volumeOr dered By: Dr. Orta on 03-29-2022 Platelet mean volume (Bld) [Entitic vol] 11.0 fL 6.2-12.0 [facility] Determination of erythrocyte mean corpuscular volume (MCV)Ordered By: Dr. Orta on 03-29-2022 MCV (RBC) [Entitic vol] 93.8 fL 81-99 [facility] Hematocrit Auto (Bld) [Volum e fraction]Ordered By: Dr. Orta on 03-29-2022 Hematocrit (Bld) [Volume fraction] 42.3 % 37-47 [facility] Laboratory - Chemistry and C hemistry - challengeOrdered By: Dr. Orta on 03-29-2022 ALP [Catalytic activity/Vol] 51 U/L 45-117 [facility] ALT [Catalytic activity/Vol] 29 U/L 13-56 [facility] CO2 [Moles/Vol] 26.0 mmol/L 21.0-32.0 [facility] Globulin (S) [Mass/Vol] 3.6 g/dL 2.2-4.2 [facility] Urea nitrogen/Creatinine [Mass ratio] 28.0 mg/mg 10-20 [facility] Laboratory - Hematology and Cell countsOrdered By: Dr. Orta on 03-29-2022 Erythrocyte distribution width (RBC) [Entitic vol] 46.5 fL 35.1-43.9 [facility] Erythrocyte distribution width (RBC) [Ratio] 13.5 % 11.6-14.6 [facility] Immature granulocytes/100 WBC (Bld) 0.100 % 0.0-0.9 [facility] Comment on above: IG% - Immature Granu locytes (promyelocytes, myelocytes and metamyelocytes) > 1% indicates that a LEFT SHIFT is Present. MCH (RBC) [Entitic mass] 30.8 pg 27.0-32.0 [facility] Nucleated RBC/100 WBC (Bld) [Ratio] 0 % 0-5 [facility] MCHC Auto (RBC) [Mass/Vol]Or dered By: Dr. Orta on 03-29-2022 MCHC (RBC) [Mass/Vol] 32.9 g/dL 32-36 [facility] No Panel InformationOrdered By: Dr. Orta on 03-29-2022 Estimated GFR (MDRD) Amer 99 mL/min >60 [facility] Comment on above: GFR Calc Estimated GFR (MDRD) Non-Af Amer 82 mL/min >60 [facility] Comment on above: Non- GFR Calc Platelets bldOrdered By: Dr. Orta on 03-29-2022 Platelets (Bld) [#/Vol] 146 10*3/uL 150-450 [facility] Serum or plasma albumin blessing urement (mass/volume)Ordered By: Dr. Orta on 03-29-2022 Albumin [Mass/Vol] 3.9 g/dL 3.2-5.0 [facility] Serum or plasma albumin/glob ulin mass ratioOrdered By: Dr. Orta on 03-29-2022 Albumin/Globulin [Mass ratio] 1.1 {ratio} 0.9-2.4 [facility] Serum or plasma calcium blessing urement (mass/volume)Ordered By: Dr. Orta on 03-29-2022 Calcium [Mass/Vol] 9.4 mg/dL 8.5-10.1 [facility] Serum or plasma creatinine m easurement (mass/volume)Ordered By: Dr. Orta on 03-29-2022 Creatinine [Mass/Vol] 0.75 mg/dL 0.55-1.02 [facility] Comment on above: The validity of the calculated GFR & GFRAA in patients over 70 years has not been determined. Clinical correlation is essential. Serum or plasma urea nitroge n measurement (mass/volume)Ordered By: Dr. Orta on 03-29-2022 Urea nitrogen [Mass/Vol] 21 mg/dL 7-18 [facility] Thin prep Papanicolaou smear with manual screeningOrdered By: Dr. Orta on 03-29-2022 Thin prep Papanicolaou smear with manual screening 21 U/L 15-37 [facility] Thin prep Papanicolaou smear with manual screening 8 5-15 [facility] Absolute lymphocyte counton 01-04-2022 Lymphocytes Auto (Unsp spec) [#/Vol] 1.98 10*3/uL 0.83-4.51 [facility] Work Phone: Basophil percentageon 2021 Basophils/100 WBC (Bld) 0.6 % 0-1 [facility] Work Phone: Bilirubin [Mass/Vol] 0.40 mg/dL 0.20-1.00 [facility] Work Phone: Comment on above: For patients on eltr ombopag therapy, use of Dimension [place] TBIL is not recommended. Chloride [Moles/Vol] 107 mmol/L 98-107 [facility] Work Phone: Eosinophils/100 WBC (Bld) 1.7 % 0-5 [facility] Work Phone: Glucose [Mass/Vol] 89 mg/dL 74-106 [facility] Work Phone: Neutrophils (Bld) [#/Vol] 4.2 10*3/uL 2.0-7.7 [facility] Work Phone: Neutrophils/100 WBC (Bld) 59.8 % 47-70 [facility] Work Phone: Potassium [Moles/Vol] 3.8 mmol/L 3.5-5.1 [facility] Work Phone: Protein [Mass/Vol] 7.2 g/dL 6.4-8.2 [facility] Work Phone: Sodium [Moles/Vol] 140 mmol/L 136-145 [facility] Work Phone: WBC (Bld) [#/Vol] 7.0 10*3/uL 4.4-11.0 [facility] Work Phone: Blood erythrocytes count (nu mber/volume)on 01-04-2022 RBC (Bld) [#/Vol] 4.21 10*6/uL 4.2-5.4 [facility] Work Phone: Blood hemoglobin measurement (mass/volume)on 01-04-2022 Hemoglobin (Bld) [Mass/Vol] 13.0 g/dL 12.0-15.0 [facility] Work Phone: Blood lymphocytes/100 leukoc yteson 01-04-2022 Lymphocytes/100 WBC (Bld) 28.4 % 19-41 [facility] Work Phone: Blood monocytes/100 leukocyt eson 01-04-2022 Monocytes/100 WBC (Bld) 9.2 % 0-10 [facility] Work Phone: Blood platelet mean volumeon 01-04-2022 Platelet mean volume (Bld) [Entitic vol] 11.3 fL 6.2-12.0 [facility] Work Phone: Determination of erythrocyte mean corpuscular volume (MCV)on 01-04-2022 MCV (RBC) [Entitic vol] 93.6 fL 81-99 [facility] Work Phone: Hematocrit Auto (Bld) [Volum e fraction]on 01-04-2022 Hematocrit (Bld) [Volume fraction] 39.4 % 37-47 [facility] Work Phone: Laboratory - Chemistry and C hemistry - challengeon 01-04-2022 ALP [Catalytic activity/Vol] 57 U/L 45-117 [facility] Work Phone: ALT [Catalytic activity/Vol] 24 U/L 13-56 [facility] Work Phone: CO2 [Moles/Vol] 27.0 mmol/L 21.0-32.0 [facility] Work Phone: Globulin (S) [Mass/Vol] 3.6 g/dL 2.2-4.2 [facility] Work Phone: Urea nitrogen/Creatinine [Mass ratio] 17.6 mg/mg 10-20 [facility] Work Phone: Laboratory - Hematology and Cell countson 01-04-2022 Erythrocyte distribution width (RBC) [Entitic vol] 46.8 fL 35.1-43.9 [facility] Work Phone: Erythrocyte distribution width (RBC) [Ratio] 13.8 % 11.6-14.6 [facility] Work Phone: Immature granulocytes/100 WBC (Bld) 0.300 % 0.0-0.9 [facility] Work Phone: Comment on above: IG% - Immature Granu locytes (promyelocytes, myelocytes and metamyelocytes) > 1% indicates that a LEFT SHIFT is Present. MCH (RBC) [Entitic mass] 30.9 pg 27.0-32.0 [facility] Work Phone: Nucleated RBC/100 WBC (Bld) [Ratio] 0 % 0-5 [facility] Work Phone: MCHC Auto (RBC) [Mass/Vol]on 01-04-2022 MCHC (RBC) [Mass/Vol] 33.0 g/dL 32-36 [facility] Work Phone: No Panel Informationon 01-04 Estimated GFR (MDRD) Amer 101 mL/min >60 [facility] Work Phone: Comment on above: GFR Calc Estimated GFR (MDRD) Non-Af Amer 84 mL/min >60 [facility] Work Phone: Comment on above: Non- GFR Calc Platelets bldon 01-04-2022 Platelets (Bld) [#/Vol] 165 10*3/uL 150-450 [facility] Work Phone: Serum or plasma albumin blessing urement (mass/volume)on 01-04-2022 Albumin [Mass/Vol] 3.6 g/dL 3.2-5.0 [facility] Work Phone: Serum or plasma albumin/glob ulin mass ratioon 01-04-2022 Albumin/Globulin [Mass ratio] 1.0 {ratio} 0.9-2.4 [facility] Work Phone: Serum or plasma calcium blessing urement (mass/volume)on 01-04-2022 Calcium [Mass/Vol] 8.7 mg/dL 8.5-10.1 [facility] Work Phone: Serum or plasma creatinine m easurement (mass/volume)on 01-04-2022 Creatinine [Mass/Vol] 0.74 mg/dL 0.55-1.02 [facility] Work Phone: Comment on above: The validity of the calculated GFR & GFRAA in patients over 70 years has not been determined. Clinical correlation is essential. Serum or plasma urea nitroge n measurement (mass/volume)on 01-04-2022 Urea nitrogen [Mass/Vol] 13 mg/dL 7-18 [facility] Work Phone: Thin prep Papanicolaou smear with manual screeningon 01-04-2022 Thin prep Papanicolaou smear with manual screening 18 U/L 15-37 [facility] Work Phone: Thin prep Papanicolaou smear with manual screening 6 5-15 [facility] Work Phone: Laboratory - Chemistry and C hemistry - challengeon 11-25-2021 Free T4 [Mass/Vol] 0.95 ng/dL 0.76-1.46 [facility] Work Phone: No Panel Informationon 11-25 Thyroid Stimulating Hormone (TSH) 0.57 uIU/mL 0.358-3.74 [facility] Work Phone: Vitamin D 25-Hydroxy 86.2 ng/mL [facility] Work Phone: Comment on above: Vitamin D 25(OH) Sta tus Range Deficiency <20 ng/mL (50nmol/L) Insufficiency 20 - 30 ng/mL (50 - 75 nmol/L) Sufficiency 30 - 100 ng/mL (75 - 250 nmol/L) Toxicity >100 ng/mL (>250 nmol/L) Absolute lymphocyte counton 10-02-2021 Lymphocytes Auto (Unsp spec) [#/Vol] 2.22 10*3/uL 0.83-4.51 [facility] Work Phone: Basophil percentageon 2021 Basophils/100 WBC (Bld) 0.6 % 0-1 [facility] Work Phone: Bilirubin [Mass/Vol] 0.30 mg/dL 0.20-1.00 [facility] Work Phone: Comment on above: For patients on eltr ombopag therapy, use of Dimension [place] TBIL is not recommended. Chloride [Moles/Vol] 109 mmol/L 98-107 [facility] Work Phone: Eosinophils/100 WBC (Bld) 1.3 % 0-5 [facility] Work Phone: Glucose [Mass/Vol] 100 mg/dL 74-106 [facility] Work Phone: Comment on above: Fasting Glucose resu lt from 100 to 125 mg/dL suggests IMPAIRED HOMEOSTASIS per A.D.A. criteria. Neutrophils (Bld) [#/Vol] 3.9 10*3/uL 2.0-7.7 [facility] Work Phone: Neutrophils/100 WBC (Bld) 56.4 % 47-70 [facility] Work Phone: Potassium [Moles/Vol] 4.0 mmol/L 3.5-5.1 [facility] Work Phone: Protein [Mass/Vol] 7.2 g/dL 6.4-8.2 [facility]: Sodium [Moles/Vol] 140 mmol/L 136-145 [facility] Work Phone: WBC (Bld) [#/Vol] 6.9 10*3/uL 4.4-11.0 [facility] Work Phone: Blood erythrocytes count (nu mber/volume)on 10-02-2021 RBC (Bld) [#/Vol] 4.21 10*6/uL 4.2-5.4 [facility]: Blood hemoglobin measurement (mass/volume)on 10-02-2021 Hemoglobin (Bld) [Mass/Vol] 13.1 g/dL 12.0-15.0 [facility] Work Phone: Blood lymphocytes/100 leukoc yteson 10-02-2021 Lymphocytes/100 WBC (Bld) 32.2 % 19-41 [facility] Work Phone: Blood monocytes/100 leukocyt eson 10-02-2021 Monocytes/100 WBC (Bld) 9.1 % 0-10 [facility] Work Phone: Blood platelet mean volumeon 10-02-2021 Platelet mean volume (Bld) [Entitic vol] 10.7 fL 6.2-12.0 [facility] Work Phone: Determination of erythrocyte mean corpuscular volume (MCV)on 10-02-2021 MCV (RBC) [Entitic vol] 96.4 fL 81-99 [facility] Work Phone: Hematocrit Auto (Bld) [Volum e fraction]on 10-02-2021 Hematocrit (Bld) [Volume fraction] 40.6 % 37-47 [facility] Work Phone: Laboratory - Chemistry and C hemistry - challengeon 10-02-2021 ALP [Catalytic activity/Vol] 59 U/L 45-117 [facility] Work Phone: ALT [Catalytic activity/Vol] 26 U/L 13-56 [facility] Work Phone: CO2 [Moles/Vol] 26.0 mmol/L 21.0-32.0 [facility] Work Phone: Globulin (S) [Mass/Vol] 3.4 g/dL 2.2-4.2 [facility] Work Phone: Urea nitrogen/Creatinine [Mass ratio] 25.5 mg/mg 10-20 [facility] Work Phone: Laboratory - Hematology and Cell countson 10-02-2021 Erythrocyte distribution width (RBC) [Entitic vol] 47.5 fL 35.1-43.9 [facility] Work Phone: Erythrocyte distribution width (RBC) [Ratio] 13.4 % 11.6-14.6 [facility] Work Phone: Immature granulocytes/100 WBC (Bld) 0.400 % 0.0-0.9 [facility] Work Phone: Comment on above: IG% - Immature Granu locytes (promyelocytes, myelocytes and metamyelocytes) > 1% indicates that a LEFT SHIFT is Present. MCH (RBC) [Entitic mass] 31.1 pg 27.0-32.0 [facility] Work Phone: Nucleated RBC/100 WBC (Bld) [Ratio] 0 % 0-5 [facility] Work Phone: MCHC Auto (RBC) [Mass/Vol]on 10-02-2021 MCHC (RBC) [Mass/Vol] 32.3 g/dL 32-36 [facility] Work Phone: No Panel Informationon 10-02 Estimated GFR (MDRD) Amer 94 mL/min >60 [facility] Work Phone: Comment on above: GFR Calc Estimated GFR (MDRD) Non-Af Amer 78 mL/min >60 [facility] Work Phone: Comment on above: Non- GFR Calc Platelets bldon 10-02-2021 Platelets (Bld) [#/Vol] 159 10*3/uL 150-450 [facility] Work Phone: Serum or plasma albumin blessing urement (mass/volume)on 10-02-2021 Albumin [Mass/Vol] 3.8 g/dL 3.2-5.0 [facility] Work Phone: Serum or plasma albumin/glob ulin mass ratioon 10-02-2021 Albumin/Globulin [Mass ratio] 1.1 {ratio} 0.9-2.4 [facility] Work Phone: Serum or plasma calcium blessing urement (mass/volume)on 10-02-2021 Calcium [Mass/Vol] 8.5 mg/dL 8.5-10.1 [facility] Work Phone: Serum or plasma creatinine m easurement (mass/volume)on 10-02-2021 Creatinine [Mass/Vol] 0.78 mg/dL 0.55-1.02 [facility] Work Phone: Comment on above: The validity of the calculated GFR & GFRAA in patients over 70 years has not been determined. Clinical correlation is essential. Serum or plasma urea nitroge n measurement (mass/volume)on 10-02-2021 Urea nitrogen [Mass/Vol] 20 mg/dL 7-18 [facility] Work Phone: Thin prep Papanicolaou smear with manual screeningon 10-02-2021 Thin prep Papanicolaou smear with manual screening 20 U/L 15-37 [facility] Work Phone: Thin prep Papanicolaou smear with manual screening 5 5-15 [facility] Work Phone: Absolute lymphocyte counton 07-03-2021 Lymphocytes Auto (Unsp spec) [#/Vol] 2.30 10*3/uL 0.83-4.51 [facility] Work Phone: Basophil percentageon 2021 Basophils/100 WBC (Bld) 0.6 % 0-1 [facility] Work Phone: Bilirubin [Mass/Vol] 0.30 mg/dL 0.20-1.00 [facility] Work Phone: Comment on above: For patients on eltr ombopag therapy, use of Dimension [place] TBIL is not recommended. Chloride [Moles/Vol] 110 mmol/L 98-107 [facility] Work Phone: Eosinophils/100 WBC (Bld) 2.1 % 0-5 [facility] Work Phone: Glucose [Mass/Vol] 111 mg/dL 74-106 [facility] Work Phone: Comment on above: Fasting Glucose resu lt from 100 to 125 mg/dL suggests IMPAIRED HOMEOSTASIS per A.D.A. criteria. Neutrophils (Bld) [#/Vol] 5.3 10*3/uL 2.0-7.7 [facility] Work Phone: Neutrophils/100 WBC (Bld) 61.4 % 47-70 [facility] Work Phone: Potassium [Moles/Vol] 3.5 mmol/L 3.5-5.1 [facility] Work Phone: Protein [Mass/Vol] 7.1 g/dL 6.4-8.2 [facility] Work Phone: Sodium [Moles/Vol] 142 mmol/L 136-145 [facility] Work Phone: WBC (Bld) [#/Vol] 8.6 10*3/uL 4.4-11.0 [facility] Work Phone: Blood erythrocytes count (nu mber/volume)on 07-03-2021 RBC (Bld) [#/Vol] 4.27 10*6/uL 4.2-5.4 [facility] Work Phone: Blood hemoglobin measurement (mass/volume)on 07-03-2021 Hemoglobin (Bld) [Mass/Vol] 13.4 g/dL 12.0-15.0 [facility] Work Phone: Blood lymphocytes/100 leukoc yteson 07-03-2021 Lymphocytes/100 WBC (Bld) 26.7 % 19-41 [facility] Work Phone: Blood monocytes/100 leukocyt eson 07-03-2021 Monocytes/100 WBC (Bld) 8.9 % 0-10 [facility] Work Phone: Blood platelet mean volumeon 07-03-2021 Platelet mean volume (Bld) [Entitic vol] 10.6 fL 6.2-12.0 [facility] Work Phone: Determination of erythrocyte mean corpuscular volume (MCV)on 07-03-2021 MCV (RBC) [Entitic vol] 95.8 fL 81-99 [facility] Work Phone: Hematocrit Auto (Bld) [Volum e fraction]on 07-03-2021 Hematocrit (Bld) [Volume fraction] 40.9 % 37-47 [facility] Work Phone: Laboratory - Chemistry and C hemistry - challengeon 07-03-2021 ALP [Catalytic activity/Vol] 72 U/L 45-117 [facility] Work Phone: ALT [Catalytic activity/Vol] 23 U/L 13-56 [facility] Work Phone: CO2 [Moles/Vol] 28.0 mmol/L 21.0-32.0 [facility] Work Phone: Globulin (S) [Mass/Vol] 3.5 g/dL 2.2-4.2 [facility] Work Phone: Urea nitrogen/Creatinine [Mass ratio] 24.0 mg/mg 10-20 [facility] Work Phone: Laboratory - Hematology and Cell countson 07-03-2021 Erythrocyte distribution width (RBC) [Entitic vol] 49.5 fL 35.1-43.9 [facility] Work Phone: Erythrocyte distribution width (RBC) [Ratio] 14.3 % 11.6-14.6 [facility] Work Phone: Immature granulocytes/100 WBC (Bld) 0.300 % 0.0-0.9 [facility] Work Phone: Comment on above: IG% - Immature Granu locytes (promyelocytes, myelocytes and metamyelocytes) > 1% indicates that a LEFT SHIFT is Present. MCH (RBC) [Entitic mass] 31.4 pg 27.0-32.0 [facility] Work Phone: Nucleated RBC/100 WBC (Bld) [Ratio] 0 % 0-5 [facility] Work Phone: MCHC Auto (RBC) [Mass/Vol]on 07-03-2021 MCHC (RBC) [Mass/Vol] 32.8 g/dL 32-36 [facility] Work Phone: No Panel Informationon 07-03 Estimated GFR (MDRD) Amer 71 mL/min >60 [facility] Work Phone: Comment on above: GFR Calc Estimated GFR (MDRD) Non-Af Amer 59 mL/min >60 [facility] Work Phone: Comment on above: Non- GFR Calc Platelets bldon 07-03-2021 Platelets (Bld) [#/Vol] 158 10*3/uL 150-450 [facility] Work Phone: Serum or plasma albumin blessing urement (mass/volume)on 07-03-2021 Albumin [Mass/Vol] 3.6 g/dL 3.2-5.0 [facility] Work Phone: Serum or plasma albumin/glob ulin mass ratioon 07-03-2021 Albumin/Globulin [Mass ratio] 1.0 {ratio} 0.9-2.4 [facility] Work Phone: Serum or plasma calcium blessing urement (mass/volume)on 07-03-2021 Calcium [Mass/Vol] 9.2 mg/dL 8.5-10.1 [facility] Work Phone: Serum or plasma creatinine m easurement (mass/volume)on 07-03-2021 Creatinine [Mass/Vol] 1.00 mg/dL 0.55-1.02 [facility] Work Phone: Comment on above: The validity of the calculated GFR & GFRAA in patients over 70 years has not been determined. Clinical correlation is essential. Serum or plasma urea nitroge n measurement (mass/volume)on 07-03-2021 Urea nitrogen [Mass/Vol] 24 mg/dL 7-18 [facility] Work Phone: Thin prep Papanicolaou smear with manual screeningon 07-03-2021 Thin prep Papanicolaou smear with manual screening 16 U/L 15-37 [facility] Work Phone: Thin prep Papanicolaou smear with manual screening 4 5-15 [facility] Work Phone: Office Visit: Med Checkon Documentation of current medications (procedure) Done Invalid Interpretation Code [facility] Fall risk assessment No Invalid Interpretation Code [facility] Tobacco smoking status [facility] Never Invalid Interpretation Code [facility] Tobacco use [facility] Never smoker Invalid Interpretation Code [facility] Office Visit: vaginal painon 02-09-2017 Documentation of current medications (procedure) Done Invalid Interpretation Code [employer] Work Phone: Protein mass conc Done Invalid Interpretation Code [facility] Tobacco smoking status NHIS Never Invalid Interpretation Code [facility] Tobacco smoking status VAIS Never smoker Invalid Interpretation Code [facility] Tobacco use [facility] Never smoker Invalid Interpretation Code [facility] [employer] [facility] Work Phone: Replaced Document: (P) HSV C ulture Screenon 01-24-2017 GE use only - for [employer] import when terms are not otherwise specified Negative Invalid Interpretation Code . [facility] HSV CULTURE Negative Invalid Interpretation Code . [facility] Lab Report: HSV 1 AND 2 IgGo n 01-21-2017 GE use only - for [employer] import when terms are not otherwise specified < 0.91 index Invalid Interpretation Code 0.00-0.90 [facility] Office Visit: sore on vagina on 01-20-2017 Documentation of current medications (procedure) Done Invalid Interpretation Code [facility] Fall risk assessment No Invalid Interpretation Code [facility] Protein mass conc Done [facility] Tobacco smoking status NHIS Never [facility] Tobacco smoking status NHIS Never smoker [facility] Tobacco use [facility] Never smoker Invalid Interpretation Code [facility] Lab Report: Basic Metabolic Profile (BMP)on 10-11-2016 Anion gap 11 mmol/L Invalid Interpretation Code 5-15 [employer] Work Phone: Anion gap 4 molar conc 11 Invalid Interpretation Code -15 [facility] Anion gap molar conc 11 mmol/L 5-15 [facility] Work Phone: BUN/Creatinine Ratio 21.5 RATIO High 10-20 [employer] Work Phone: Calcium 8.9 mg/dL Invalid Interpretation Code 8.5-10.1 [employer] Work Phone: Chloride 105 mmol/L Invalid Interpretation Code 98-107 [employer] Work Phone: CO2 27.0 mmol/L Invalid Interpretation Code 21.0-32.0 [employer] Work Phone: CO2 ppres (BldV) 27.0 mmol/L Invalid Interpretation Code 21.0-32.0 [employer] Work Phone: Creatinine 76.60 mL/min Invalid Interpretation Code [employer] Work Phone: Creatinine 0.74 mg/dL Invalid Interpretation Code 0.55-1.02 [employer] Work Phone: eGFR (non-black) 102 mL/min/{1.73_m2} Invalid Interpretation Code >60 [employer] Work Phone: eGFR (non-black) 84 mL/min/{1.73_m2} Invalid Interpretation Code >60 [employer] Work Phone: EST GFR - AA 102 mL/min Invalid Interpretation Code >60 [facility] Work Phone: Glucose 100 mg/dL Invalid Interpretation Code 70-110 [facility] Work Phone: Glucose mass conc 100 mg/dL Invalid Interpretation Code 70-110 [facility] Work Phone: Potassium 3.8 mmol/L Invalid Interpretation Code 3.5-5.1 [facility] Work Phone: Sodium 143 mmol/L Invalid Interpretation Code 136-145 [facility] Work Phone: Urea nitrogen 16 mg/dL Invalid Interpretation Code 7-18 [facility] Work Phone: Lab Report: CBC-Complete Blo od Cnt No Diffon 10-11-2016 Erythrocyte distribution width Auto Ratio (RBC) 44.4 fL High 35.1-43.9 [facility] Erythrocyte distribution width Ratio (RBC) 44.4 fL High 35.1-43.9 [facility] Work Phone: Erythrocyte distribution width Ratio (RBC) 13.6 % 11.6-14.6 [facility] Work Phone: Erythrocytes (RBC) 4.48 10*6/uL Invalid Interpretation Code 4.2-5.4 [facility] Work Phone: Hematocrit (HCT) 40.5 % Invalid Interpretation Code 37-47 [facility] Work Phone: Hematocrit Volume Fraction (Bld) 40.5 % 37-47 [facility] Work Phone: Hemoglobin (HGB) 13.6 g/dL Invalid Interpretation Code 12.0-15.0 [facility] Work Phone: MCH 30.4 pg Invalid Interpretation Code 27.0-32.0 [facility] Work Phone: MCH Entitic mass (RBC) 30.4 pg 27.0-32.0 [facility] Work Phone: MCHC 33.6 G/GL Invalid Interpretation Code 32-36 [facility] Work Phone: MCHC mass conc (RBC) 33.6 G/GL 32-[address] [facility] Work Phone: MCV 90.4 fL Invalid Interpretation Code 81-99 [facility] Work Phone: MCV Entitic volume (RBC) 90.4 fL 81-99 [facility] Work Phone: Platelet mean volume Entitic volume (Bld) 10.7 fL 6.2-12.0 [facility] Work Phone: Platelets 182 10*3/mm3 Invalid Interpretation Code 150-450 [facility] Work Phone: Platelets #/vol (Bld) 182 10*3/mm3 150-450 [facility] Work Phone: PMV by Baldomero 10.7 fL Invalid Interpretation Code 6.2-12.0 [facility] Work Phone: RBC #/vol (Bld) 4.48 10*6/uL 4.2-5.4 [facility] Work Phone: RDW SD 44.4 fL High 35.1-43.9 [facility] Work Phone: RDW-CA 13.6 % Invalid Interpretation Code 11.6-14.6 [facility] Work Phone: red blood cell distribution width, size density 44.4 fL High 35.1-43.9 [facility] Work Phone: WBC #/vol (Bld) 5.7 10*3/uL 4.4-11.0 [facility] Work Phone: WBC (Leukocytes) 5.7 10*3/uL Invalid Interpretation Code 4.4-11.0 [facility] Work Phone: Lab Report: Basic Metabolic Profile (BMP)on 09-22-2016 Anion gap 8 mmol/L Invalid Interpretation Code 09-20 [facility] Work Phone: Anion gap [Moles/Vol] 8 mmol/L 09-20 [facility] Work Phone: Calcium [Mass/Vol] 8.8 mg/dL 8.5-10.1 [facility] Work Phone: Chloride [Moles/Vol] 110 mmol/L High 98-[address] [facility] Work Phone: CO2 27.0 mmol/L Invalid Interpretation Code 21.0-32.0 [facility] Work Phone: CO2 (BldV) [Partial pressure] 27.0 mmol/L 21.0-32.0 [facility] Work Phone: Creatinine [Mass/Vol] 0.71 mg/dL 0.55-1.02 [facility] Work Phone: eGFR (non-black) 107 mL/min/{1.73_m2} Invalid Interpretation Code >60 [facility] Work Phone: EST GFR - AA 107 mL/min >60 [facility] Work Phone: GFR/1.73 sq M predicted among non-blacks MDRD (S/P/Bld) [Vol rate/Area] 88 mL/min/{1.73_m2} >60 [facility] Work Phone: Glucose 98 mg/dL Invalid Interpretation Code 70-110 [facility] Work Phone: Glucose [Mass/Vol] 98 mg/dL 70-110 [facility] Work Phone: Potassium [Moles/Vol] 3.2 mmol/L Low 3.5-5.1 [facility] Work Phone: Sodium [Moles/Vol] 145 mmol/L 136-145 [facility] Work Phone: Urea nitrogen [Mass/Vol] 16 mg/dL 7-18 [facility] Work Phone: Urea nitrogen/Creatinine [Mass ratio] 22.4 RATIO High 10-20 [facility] Work Phone: Lab Report: CBC-Complete Blo od Cnt No Diffon 09-22-2016 Erythrocyte distribution width (RBC) [Ratio] 44.2 fL High 35.1-43.9 [facility] Work Phone: Erythrocyte distribution width (RBC) [Ratio] 13.5 % 11.6-14.6 [facility] Work Phone: Erythrocytes (RBC) 4.48 10*6/uL Invalid Interpretation Code 4.2-5.4 [facility] Work Phone: Hematocrit (Bld) [Volume fraction] 40.4 % 37-47 [facility] Work Phone: Hematocrit (HCT) 40.4 % Invalid Interpretation Code 37-47 [facility] Work Phone: Hemoglobin (Bld) [Mass/Vol] 13.4 g/dL 12.0-15.0 [facility] Work Phone: MCH 29.9 pg Invalid Interpretation Code 27.0-32.0 [facility] Work Phone: MCH (RBC) [Entitic mass] 29.9 pg 27.0-32.0 [facility] Work Phone: MCHC 33.2 G/GL Invalid Interpretation Code 32-36 [facility] Work Phone: MCHC (RBC) [Mass/Vol] 33.2 G/GL 32-36 [facility] Work Phone: MCV 90.2 fL Invalid Interpretation Code 81-99 [facility] Work Phone: MCV (RBC) [Entitic vol] 90.2 fL 81-99 [facility] Work Phone: Platelet mean volume (Bld) [Entitic vol] 11.3 fL 6.2-12.0 [facility] Work Phone: Platelets 172 10*3/mm3 Invalid Interpretation Code 150-450 [facility] Work Phone: Platelets (Bld) [#/Vol] 172 10*3/mm3 150-450 [facility] Work Phone: PMV by Baldom[place] 11.3 fL Invalid Interpretation Code 6.2-12.0 [facility] Work Phone: RBC (Bld) [#/Vol] 4.48 10*6/uL 4.2-5.4 [facility] Work Phone: RDW-CA 13.5 % Invalid Interpretation Code 11.6-14.6 [facility] Work Phone: red blood cell distribution width, size density 44.2 fL High 35.1-43.9 [facility] Work Phone: WBC (Bld) [#/Vol] 6.1 10*3/uL 4.4-11.0 [facility] Work Phone: WBC (Leukocytes) 6.1 10*3/uL Invalid Interpretation Code 4.4-11.0 [facility] Work Phone: Office Visiton 09-22-2016 Documentation of current medications (procedure) Done Invalid Interpretation Code [facility] Work Phone: Fall risk assessment No Invalid Interpretation Code [facility] Work Phone: Protein mass conc Done [facility] Work Phone: Replaced Document: Kennedy Garcia CG Observationson 09-22-2016 EKG QRS axis 56 deg Invalid Interpretation Code [facility] Work Phone: electrocardiogram interpretation 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 - Nonspecific T-abnormality. 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 - Nonspecific T-abnormality. ABNORMAL Invalid Interpretation Code [facility] [employer] Phone: P Veyo 48 deg Invalid Interpretation Code [facility] Work Phone: P wave axis, electrocardiogram 48 deg Invalid Interpretation Code [facility] Work Phone: VA Interval 198 ms Invalid Interpretation Code [facility] Work Phone: VA interval, electrocardiogram 198 ms Invalid Interpretation Code [facility] Work Phone: Pulse (Heart Rate) 76 /min Invalid Interpretation Code [facility] Work Phone: QRS axis, electrocardiogram 56 deg Invalid Interpretation Code [facility] Work Phone: QRS Duration 86 ms Invalid Interpretation Code [facility] Work Phone: QRS duration, electrocardiogram 86 ms Invalid Interpretation Code [facility] Work Phone: QT Interval new path ms Invalid Interpretation Code [facility] Work Phone: QT interval, electrocardiogram new path ms Invalid Interpretation Code [facility] Work Phone: QTc Flores 392 ms [facility] Work Phone: T Veyo -1 deg Invalid Interpretation Code [facility] Work Phone: T wave axis, electrocardiogram -1 deg Invalid Interpretation Code [facility] Work Phone: Office Visit: sore on vagina on 08-08-2016 Breast Mammogram screening Normal Bilateral Invalid Interpretation Code [facility] General categories [Interpretation] of Cervical or vaginal smear or scraping by Cyto stain Normal Invalid Interpretation Code [facility] Lab Report: Basic Metabolic Profile (BMP)on 04-15-2016 Anion gap [Moles/Vol] 6 mmol/L 5-15 [facility] Work Phone: Calcium [Mass/Vol] 9.2 mg/dL 8.5-10.1 [facility] Work Phone: Chloride [Moles/Vol] 106 mmol/L 98-[address] [facility] Work Phone: CO2 (BldV) [Partial pressure] 30.0 mmol/L 21.0-32.0 [facility] Work Phone: Creatinine [Mass/Vol] 0.81 mg/dL 0.55-1.02 [facility] Work Phone: EST GFR - AA 92 mL/min >60 [facility] Work Phone: GFR/1.73 sq M predicted among non-blacks MDRD (S/P/Bld) [Vol rate/Area] 76 mL/min/{1.73_m2} >60 [facility] Work Phone: Glucose [Mass/Vol] 123 mg/dL High 70-110 [facility] Work Phone: Potassium [Moles/Vol] 3.6 mmol/L 3.5-5.1 [facility] Work Phone: Sodium [Moles/Vol] 142 mmol/L 136-145 [facility] Work Phone: Urea nitrogen [Mass/Vol] 16 mg/dL 7-18 [facility] Work Phone: Urea nitrogen/Creatinine [Mass ratio] 19.7 RATIO 10-20 [facility] Work Phone: Lab Report: CBC-Complete Blo od Cnt No Diffon 04-15-2016 Erythrocyte distribution width (RBC) [Ratio] 44.2 fL High 35.1-43.9 [facility] Work Phone: Erythrocyte distribution width (RBC) [Ratio] 13.5 % 11.6-14.6 [facility] Work Phone: Hematocrit (Bld) [Volume fraction] 42.1 % 37-47 [facility] Work Phone: Hemoglobin (Bld) [Mass/Vol] 13.9 g/dL 12.0-15.0 [facility] Work Phone: MCH (RBC) [Entitic mass] 30.2 pg 27.0-32.0 [facility] Work Phone: MCHC (RBC) [Mass/Vol] 33.0 G/GL 32-36 [facility] Work Phone: MCV (RBC) [Entitic vol] 91.3 fL 81-99 [facility] Work Phone: Platelet mean volume (Bld) [Entitic vol] 11.3 fL 6.2-12.0 [facility] Work Phone: Platelets (Bld) [#/Vol] 148 10*3/mm3 Low 150-450 [facility] Work Phone: RBC (Bld) [#/Vol] 4.61 10*6/uL 4.2-5.4 [facility] Work Phone: WBC (Bld) [#/Vol] 7.4 10*3/uL 4.4-11.0 [facility] Work Phone: Lab Report: Prothrombin Time w/INRon 04-15-2016 INR Coag (PPP) [Relative time] 1.0 {INR} Invalid Interpretation Code [facility] Work Phone: INR in blood by coagulation 1.0 {INR} Invalid Interpretation Code [facility] Work Phone: PT Coag (PPP) [Time] 13 s Invalid Interpretation Code 11.7-14.9 [facility] Work Phone: Lab Report: Urinalysis, Rout ine (Dipstick)on 04-15-2016 Albumin Ql (U) 15 High Negative [facility] Work Phone: Bilirubin Ql (U) Negative Invalid Interpretation Code Negative [facility] Work Phone: Clarity (U) Sl. Cloudy Invalid Interpretation Code Clear [facility] Work Phone: Color (U) Yellow Invalid Interpretation Code Yellow [facility] Work Phone: Glucose Ql (U) Normal mg/dl Invalid Interpretation Code Normal [facility] Work Phone: Ketones (U) [Mass/Vol] 5 High Negative [facility] Work Phone: Leukocyte esterase Test strip Ql (U) 500 High Negative [facility] Work Phone: NITRITE UR Negative Invalid Interpretation Code Negative [facility] Work Phone: Nitrite Urine Negative Invalid Interpretation Code Negative [facility] Work Phone: Occult Blood, urine Negative Invalid Interpretation Code Negative [facility] Work Phone: OCCULT BLOOD-UR Negative Invalid Interpretation Code Negative [facility] Work Phone: pH (U) 5.0 [pH] 5.0 - 8.0 [facility] Work Phone: Specific gravity Refractometry (U) [Rel density] 1.025 Invalid Interpretation Code 1.002-1.030 [facility] Work Phone: Urine, bilirubin presence Negative Invalid Interpretation Code Negative [facility] Work Phone: Urine, ketones presence 5 High Negative [facility] Work Phone: Urine, pH 5.0 [pH] Invalid Interpretation Code 5.0 - 8.0 [facility] Work Phone: Urine, protein 15 mg/dL High Negative [facility] Work Phone: UROBILI Normal mg/dl Invalid Interpretation Code Normal [facility] Work Phone: urobilinogen, urine, by dipstick Normal mg/dl Invalid Interpretation Code Normal [facility] Work Phone: Office Visiton 04-15-2016 Tobacco smoking status NHIS Never smoker [facility] Work Phone: Tobacco use CPHS Never smoker Invalid Interpretation Code [facility] Work Phone: External Other: Preferred Me thod of Contacton 07-29-2015 methcontact phone Invalid Interpretation Code [facility] Work Phone: Patient's prefered method of contact phone Invalid Interpretation Code [facility] Work Phone: Office Visiton 05-01-2014 cardiac risk group B Invalid Interpretation Code [facility] Work Phone: General cardiovascular disease 10Y risk [#] Ider.D'Agostcurtis Not enough information Invalid Interpretation Code [facility] Work Phone: Replaced Document: Midmark E CG Observationson 03-16-2012 Pulse (Heart Rate) 413 ms Invalid Interpretation Code [facility] Work Phone: Vital Signs Date Time Vital Sign Value Performing Clinician Faci lity 02-19-2025 16:31-0500 Body mass index (BMI) [Ratio] 19.16 kg/m2 Krislyn Aberegg PA Work Phone: [facility] 06-27-2024 16:31-0500 Body temperature 97.59 [degF] Krislyn Aberegg PA Work Phone: [facility] 06-27-2024 16:31-0500 Body weight 55.5 kg Krislyn Aberegg PA Work Phone: [facility] 06-27-2024 16:31-0500 Diastolic blood pressure 82 mm[Hg] Krislyn Aberegg PA Work Phone: [facility] 06-27-2024 16:31-0500 Heart rate 70 /min Krislyn Aberegg PA Work Phone: [facility] 06-27-2024 16:31-0500 Respiratory rate 18 /min Krislyn Aberegg PA Work Phone: [facility] 06-27-2024 16:31-0500 SaO2% (BldA) [Mass fraction] 98 % Krislyn Aberegg PA Work Phone: [facility] 06-27-2024 16:31-0500 Systolic blood pressure 138 mm[Hg] Krislyn Aberegg PA Work Phone: [facility] 04-23-2024 11:06-0500 Body height 170.[address] Melba Young MD Work Phone: [facility] 04-23-2024 11:06-0500 Body mass index (BMI) [Ratio] 19.7 kg/m2 Dr. Melba Young MD Work Phone: [facility] 04-23-2024 11:06-0500 Body temperature 97.9 [degF] Dr. Melba Young MD Work Phone: [facility] 04-23-2024 11:06-0500 Body weight 57.[address] Melba Young MD Work Phone: [facility] 04-23-2024 11:06-0500 Diastolic blood pressure 62 mm[Hg] Dr. Melba Young MD Work Phone: [facility] 04-23-2024 11:06-0500 Heart rate 51 /min Dr. Melba Young MD Work Phone: [facility] 04-23-2024 11:06-0500 Respiratory rate 14 /min Dr. Melba Young MD Work Phone: [facility] 04-23-2024 11:06-0500 SaO2% (BldA) [Mass fraction] 99 % Dr. Melba Young MD Work Phone: [facility] 04-23-2024 11:06-0500 Systolic blood pressure 110 mm[Hg] Dr. Melba Young MD Work Phone: [facility] 03-15-2024 09:06-0500 Body mass index (BMI) [Ratio] 19.89 kg/m2 Ines Athy PA-C Work Phone: [facility] 03-15-2024 09:06-0500 Body temperature 97.59 [degF] Ines Athy PA-C Work Phone: [facility] 03-15-2024 09:06-0500 Body weight 57.6 kg Ines Athy PA-C Work Phone: [facility] 03-15-2024 09:06-0500 Diastolic blood pressure 84 mm[Hg] Ines Athy PA-C Work Phone: [facility] 03-15-2024 09:06-0500 Heart rate 82 /min Ines Athy PA-C Work Phone: [facility] 03-15-2024 09:06-0500 Respiratory rate 20 /min Ines Athy PA-C Work Phone: [facility] 03-15-2024 09:06-0500 SaO2% (BldA) [Mass fraction] 99 % Ines Rosie GAONA-C Work Phone: [facility] 03-15-2024 09:06-0500 Systolic blood pressure 150 mm[Hg] Ines Rosie PA-C Work Phone: [facility] 01-14-2023 14:23-0400 Body height 170.[address] Melba Young Work Phone: [facility] 01-14-2023 14:23-0400 Body mass index (BMI) [Ratio] 20.9 kg/m2 Dr. Melba Young Work Phone: [facility] 01-14-2023 14:23-0400 Body weight 60.[address] Melba Young Work Phone: [facility] 01-14-2023 14:23-0400 Diastolic blood pressure 62 mm[Hg] Dr. Melba Young Work Phone: [facility] 01-14-2023 14:23-0400 Heart rate 80 /min Dr. Melba Young Work Phone: [facility] 01-14-2023 14:23-0400 Respiratory rate 16 /min Dr. Melba Young Work Phone: [facility] 01-14-2023 14:23-0400 Systolic blood pressure 121 mm[Hg] Dr. Melba Young Work Phone: [facility] 11-22-2022 15:05-0400 Body height 170.[address] Melba Yuong Work Phone: [facility] 11-22-2022 15:05-0400 Body mass index (BMI) [Ratio] 20.8 kg/m2 Dr. Melba Young Work Phone: [facility] 11-22-2022 15:05-0400 Body temperature 99 [degF] Dr. Melba Young Work Phone: [facility] 11-22-2022 15:05-0400 Body weight 60.[address] Melba Young Work Phone: [facility] 11-22-2022 15:05-0400 Diastolic blood pressure 80 mm[Hg] Dr. Melba Young Work Phone: [facility] 11-22-2022 15:05-0400 Heart rate 64 /min Dr. Melba Young Work Phone: [facility] 11-22-2022 15:05-0400 Respiratory rate 16 /min Dr. Melba Young Work Phone: [facility] 11-22-2022 15:05-0400 SaO2% (BldA) [Mass fraction] 98 % Dr. Melba Young Work Phone: [facility] 11-22-2022 15:05-0400 Systolic blood pressure 122 mm[Hg] Dr. Melba Young Work Phone: [facility] 08-03-2022 13:32-0400 Body height 170.[address] Melba Young Work Phone: [facility] 05-31-2022 13:04-0500 Body height 170.[address] Melba Young Work Phone: [facility] 05-31-2022 13:04-0500 Body mass index (BMI) [Ratio] 21.1 kg/m2 Dr. Melba Young Work Phone: [facility] 05-31-2022 13:04-0500 Body temperature 97.7 [degF] Dr. Melba Young Work Phone: [facility] 05-31-2022 13:04-0500 Body weight 61.[address] Melba Young Work Phone: [facility] 05-31-2022 13:04-0500 Diastolic blood pressure 82 mm[Hg] Dr. Melba Young Work Phone: [facility] 05-31-2022 13:04-0500 Heart rate 76 /min Dr. Melba Young Work Phone: [facility] 05-31-2022 13:04-0500 Respiratory rate 14 /min Dr. eMlba Young Work Phone: [facility] 05-31-2022 13:04-0500 SaO2% (BldA) [Mass fraction] 97 % Dr. Melba Young Work Phone: [facility] 05-31-2022 13:04-0500 Systolic blood pressure 134 mm[Hg] Dr. Melba Young Work Phone: [facility] 11-25-2021 09:33-0400 Body height 170.[address] Melba Young Work Phone: [facility] Work Phone: 11-25-2021 09:33-0400 Body mass index (BMI) [Ratio] 20.9 kg/m2 Dr. Melba Young Work Phone: [facility] Work Phone: 11-25-2021 09:33-0400 Body temperature 97.4 [degF] Dr. Melba Young Work Phone: [facility] Work Phone: 11-25-2021 09:33-0400 Body weight 60.[address] Melba Young Work Phone: [facility] Work Phone: 11-25-2021 09:33-0400 Diastolic blood pressure 64 mm[Hg] Dr. Melba Young Work Phone: [facility] Work Phone: 11-25-2021 09:33-0400 Heart rate 80 /min Dr. Melba Young Work Phone: [facility] Work Phone: 11-25-2021 09:33-0400 Respiratory rate 16 /min Dr. Melba Young Work Phone: [facility] Work Phone: 11-25-2021 09:33-0400 SaO2% (BldA) [Mass fraction] 99 % Dr. Melba Young Work Phone: [facility] Work Phone: 11-25-2021 09:33-0400 Systolic blood pressure 114 mm[Hg] Dr. Melba Young Work Phone: [facility] Work Phone: 03-09-2017 14:20-0400 BMI (Body Mass Index) 22.14 kg/m2 Zo Valdez NP [facility] 03-09-2017 14:20-0400 Body Temperature 97.1 [degF] Zo Valdez STUDENT [facility] 03-09-2017 14:20-0400 Body Temperature 97.11 [degF] Zo Valdez STUDENT [facility] 03-09-2017 14:20-0400 BP Diastolic 76 mm[Hg] Zo Valdez STUDENT [facility] 03-09-2017 14:20-0400 BP Systolic 126 mm[Hg] Zo Valdez STUDENT [facility] 03-09-2017 14:20-0400 Height 170.18 cm Zo Valdez NP [facility] 03-09-2017 14:20-0400 Pulse (Heart Rate) 75 /min Zo Valdez NP [facility] 03-09-2017 14:20-0400 Respiratory Rate 16 /min Zo Valdez NP [facility] 03-09-2017 14:20-0400 Weight 64.14 kg Zo Valdez NP [facility] 02-09-2017 14:19-0400 BMI (Body Mass Index) 21.71 kg/m2 Zo Sernas STUDENT [facility] 02-09-2017 14:19-0400 Body Temperature 98.2 [degF] Zo José Miguel STUDENT [facility] 02-09-2017 14:19-0400 BP Diastolic 72 mm[Hg] Zo José Miguel STUDENT [facility] 02-09-2017 14:19-0400 BP Systolic 127 mm[Hg] Zo José Miguel STUDENT [facility] 02-09-2017 14:19-0400 Height 170.18 cm Zo Sernas STUDENT [facility] 02-09-2017 14:19-0400 Pulse (Heart Rate) 88 /min Zocristobal Sernas STUDENT [facility] 02-09-2017 14:19-0400 Weight 62.87 kg Zo Sernas STUDENT [facility] 01-20-2017 10:49-0400 BMI (Body Mass Index) 21.8 kg/m2 Lauren Camacho MD [facility] 01-20-2017 10:49-0400 Body Temperature 97.5 [degF] Lauren Camacho MD [facility] 01-20-2017 10:49-0400 BP Diastolic 72 mm[Hg] Lauren Camacho MD [facility] 01-20-2017 10:49-0400 BP Systolic 160 mm[Hg] Lauren Camacho MD [facility] 01-20-2017 10:49-0400 Height 170.18 cm Lauren Camacho MD [facility] 01-20-2017 10:49-0400 Pulse (Heart Rate) 73 /min Lauren Camacho MD [facility] 01-20-2017 10:49-0400 Respiratory Rate 16 /min Lauren Camacho MD [facility] 01-20-2017 10:49-0400 Weight 63.14 kg Lauren Camacho MD [facility] 10-11-2016 09:36-0400 Body surface area Derived from formula 76.60 mL/min [facility] Work Phone: 09-22-2016 14:33-0400 BMI [...] 13:06-0500 BMI (Body Mass Index) 21.55 kg/m2 MD [facility] Work Phone: 04-15-2016 13:06-0500 Body weight 62.42 kg MD [facility] Work Phone: 04-15-2016 13:06-0500 BSA (Body Surface Area) 1.73 m2 MD [facility] Work Phone: 04-15-2016 13:06-0500 Pulse (Heart Rate) 84 /min [facility] Work Phone: 04-15-2016 13:06-0500 Respiratory Rate 12 /min MD [facility] Work Phone: 05-01-2014 09:51-0500 BP Diastolic 70 mm[Hg] MD [facility] Work Phone: 05-01-2014 09:51-0500 BP Systolic 120 mm[Hg] MD [facility] Work Phone: 03-16-2012 14:48-0500 Heart rate 413 ms MD [facility] Work Phone: 03-16-2012 14:24-0500 Height 170.18 cm Barrett Biswas MD [facility] Work Phone: Encounters Encounter Date Encounter Type Care Provider Facility Start: 10-17-2024 ambulatory Melba BARNES Fa cility:[facility] Start: 08-27-2024 End: 08-27-2024 ambulatory Nasnottinghamkimber Young Facility:[facility] Start: 08-22-2024 End: 08-22-[address] Melba Young MD Work Phone: [facility] Work Phone: Start: 08-22-2024 End: 08-22-[address] Stephanie Orta MD -Ultrasound, [facility] Work Phone: Start: 08-22-2024 End: 08-22-2024 ambulatory Stephanie Orta Facility:[facility] Start: 08-03-2024 End: 08-03-2024 ambulatory Barrett Biswas [facility] Start: 08-03-2024 End: 08-03-[address] Barrett Biswas MD -[facility] Work Phone: Start: 07-31-2024 End: 07-31-[address] eMlba Young MD Work Phone: [facility] Work Phone: Start: 07-31-2024 End: 07-31-[address] Stephanie Orta MD -Laboratory, [place] Work Phone: Start: 07-31-2024 End: 07-31-2024 ambulatory [facility] Facility:[facility] Start: 06-30-2024 End: 06-30-2024 Follow-up encounter Bhupendra GAONA Work Phone: [facility] Start: 06-27-2024 End: 06-27-2024 Patient encounter procedure Bhupendra GAONA Work Phone: [facility] Comment on above: Acute UTI (Primary D x); Burning with urination Start: 06-27-2024 End: 06-27-2024 ambulatory MELBA YOUNG Facility:[facility] Start: 05-07-2024 End: 05-07-[address] Stephanie Orta MD -Laboratory, [place] Work Phone: Start: 05-07-2024 End: 05-07-2024 ambulatory [facility] Facility:[facility] Start: 05-04-2024 End: 05-04-2024 ambulatory Barrett Biswas Facility:[facility] Start: 05-04-2024 End: 05-04-[address] Barrett Biswas MD -[facility] Work Phone: Start: 04-23-2024 End: 04-23-[address] Melba Young MD -[facility] Work Phone: Start: 04-23-2024 End: 04-23-2024 ambulatory Melba Young Facility:[facility] Start: 03-15-2024 End: 03-15-2024 ambulatory EFEWONGBE OLEGHE Facility:[facility] Start: 03-15-2024 End: 03-15-2024 Patient encounter procedure Ines Arcos PA-C Work Phone: [facility] Comment on above: Acute UTI (Primary D x) Start: 03-13-2024 End: 03-13-2024 ambulatory Efewongbe Oleghe Facility:[facility] Start: 02-08-2024 End: 02-08-[facility] Start: 02-06-2024 End: 02-06-2024 ambulatory [facility] Facility:[facility] Start: 01-13-2024 End: 01-13-2024 [facility] Start: 01-12-2024 End: 01-12-20[facility] Start: 11-09-2023 End: 11-09-2023 ambulatory [facility] Facility:[facility] Start: 11-04-2023 End: 11-04-2023 [facility] Start: 11-02-2023 End: 11-02-2023 [facility] Start: 08-19-2023 End: 08-19-[address] Melba Young Work Phone: [facility] [facility] Start: 08-19-2023 End: 08-19-[address] Melba Young Work Phone: [facility] Work Phone: Start: 08-05-2023 End: 08-05-[address] Melba Young Work Phone: [facility] Work Phone: Start: 05-25-2023 End: 05-25-[address] Melba Young Work Phone: [facility] Work Phone: Start: 05-25-2023 End: 05-25-[address] Melba Young Work Phone: [facility] Work Phone: Start: 05-06-2023 End: 05-06-[address] Melba Young Work Phone: [facility] Work Phone: Start: 03-14-2023 End: 03-14-[address] Melba Young Work Phone: [facility] Work Phone: Start: 02-18-2023 End: 02-18-[address] Melba Young Work Phone: [facility] Work Phone: Start: 02-18-2023 End: 02-18-[address] Melba Young Work Phone: [facility] Work Phone: Start: 02-04-2023 End: 02-04-[address] Melba Young Work Phone: [facility] Work Phone: Start: 01-14-2023 End: 01-14-[address] Melba Young Work Phone: [facility] Work Phone: Start: 12-01-2022 Non-patient / Non-visit Dr. Kavon Young Work Phone: [facility] Start: 12-01-2022 End: 12-01-[address] Melba Young Work Phone: [facility] Work Phone: Start: 12-01-2022 End: 12-01-[address] [facility] Work [facility]: Start: 11-30-2022 End: 11-30-[address] Melba Young Work Phone: [facility] Work Phone: Start: 11-22-2022 End: 11-22-2022 Encounter for general adult medical examination without abnormal findings Dr. Melba Young Work Phone: [facility] Start: 11-22-2022 End: 11-22-[address] Melba Young Work Phone: [facility] Work Phone: Start: 10-27-2022 End: 10-27-[address] Melba Young Work Phone: [facility] Work Phone: Start: 09-02-2022 End: 09-02-[address] Melba Young Work Phone: [facility] Work Phone: Start: 09-02-2022 End: 09-02-[address] Melba Young Work Phone: [facility] Start: 08-03-2022 End: 08-03-[address] Melba Young Work Phone: [facility] Work Phone: Start: 08-03-2022 End: 08-03-[address] Melba Young Work Phone: [facility] Start: 07-17-2022 End: 07-17-[address] Melba Young Work Phone: [facility] Start: 06-18-2022 End: 06-18-[address] Melba Young Work Phone: [facility] Work Phone: Start: 06-18-2022 End: 06-18-[address] Melba Young Work Phone: [facility] Start: 05-31-[address] Melba Brannon Phone: [facility] Start: 05-31-2022 End: 05-31-2022 Encounter for general adult medical examination without abnormal findings Dr. Melba Young Work Phone: [facility] Start: 05-31-2022 End: 05-31-[address] Melba Young Work Phone: [facility] Start: 04-16-2022 End: 04-16-[address] Melba Brannon Phone: [facility] Start: 03-29-2022 End: 03-29-[address] Melba Young Work Phone: [facility] Start: 02-08-2022 End: 02-08-[address] Melba Young Work Phone: [facility] Work Phone: Start: 02-08-2022 End: 02-08-[address] Melba Young Work Phone: [facility] Start: 01-04-2022 End: 01-04-[address] Melba Young Work Phone: [facility] Work Phone: Start: 01-04-2022 End: 01-04-[address] Melba Young Work Phone: [facility] Start: 12-30-2021 End: 12-30-[address] Melba Young Work Phone: [facility] Start: 11-25-2021 End: 11-25-[address] Melba Young Work Phone: [facility] Start: 10-02-2021 End: 10-02-[address] Melba Young Work Phone: [facility] Start: 09-23-2021 End: 09-23-[address] Melba Young Work Phone: [facility] Start: 07-03-2021 End: 07-03-[address] Melba Young Work Phone: [facility] Start: 06-17-2021 End: 06-17-[address] Melba Young Work Phone: [facility] Start: 06-01-[address] Melba Young Work Phone: [facility] Start: 07-22-2020 End: 07-22-2020 Patient encounter procedure GRACIA PATEL [facility] Procedures Date Procedure Procedure Detail Performing Clinician Start: 08-22-[address] Melba Young MD Work Phone: Start: 06-27-2024 Urnls dip stick/tablet rgnt auto w/o microscopy Bhupendra GAONA Work Phone: Start: 03-15-2024 Urnls dip stick/tablet rgnt auto w/o microscopy Iavnna MastJose YOU Work Phone: Start: 08-03-2022 Dual energy X-ray absorptiometry Dr. Melba Young Work Phone: Start: 02-08-[address] 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 Karolina Blanc PA-C Work Phone: [...] End: 09-22-2016 Documentation of current medications Korin Young RN Start: 09-22-2016 End: 09-22-2016 *ROJAS Biswas MD Start: 09-22-2016 End: 09-22-2016 CBC W Auto Differential panel - Blood Barrett Biswas MD Start: 09-22-2016 End: 12-20-2016 LIV Biswas MD Start: 09-22-2016 End: 09-22-2016 Ecg routine ecg w/least 12 lds w/i&r Barrett Biswas MD Start: 09-22-2016 End: 12-20-2016 Follow Up Appt 3 months Greta Mcgraw Start: 09-22-2016 End: 09-22-2016 *ROJAS Biswas MD Start: 09-22-2016 End: 09-22-2016 CBC W Auto Differential panel - Blood Barrett Biswas MD Start: 09-22-2016 End: 12-20-2016 LIV Biswas MD Start: 09-22-2016 End: 09-22-2016 Electrocardiogram, complete Barrett Burgess i, MD Start: 09-22-2016 End: 12-20-2016 Follow Up [...] Start: 04-14-2016 End: 04-23-2016 Electrocardiogram, complete Barrett Burgess i, MD Start: 04-14-2016 End: 04-23-2016 Pacemaker Generator [...] Start: 12-26-2015 End: 12-26-2015 Pm device progr valal, dual Barrett Biswas MD Start: 07-09-2015 End: [...] Start: 04-02-2015 End: 04-02-2015 Pm device progr marito, dual Barrett Biswas MD Start: 11-14-2014 End: 04-23-2016 Follow Up Appt 3 months Greta Mcgraw Start: 11-14-2014 End: 04-23-2016 Pacer Clinic Barrett Biswas MD Start: 11-14-2014 End: 11-14-2014 Program eval implantable in persn dual ld pacer Barrett Biswas MD Start: 11-14-2014 End: 04-23-2016 [...] Start: 05-01-2014 End: 05-01-2014 Pm device progr eval, dual Barrett Biswas MD Start: 04-15-2014 End: [...] dual Karolina Sullivan PA-C Work Phone: Start: 04-03-2014 Lipid 1996 panel - Serum or Plasma Ines Arcos PA-C Work Phone: Start: 12-28-2013 End: 04-23-2016 [...] Start: 03-16-2012 End: 12-28-2013 Electrocardiogram, complete Barrett Burgess i, MD Start: 03-16-2012 End: 03-16-2012 Follow Up Appt 1 year Barrett Biswas MD H/O: surgery History of eye surgery Dr. Melba Young Work Phone: Plan of Treatment Date Care Activity Detail Author Start: 2030 RSV Vaccine (1 - 1-d ose 75+ series) RSV Vaccine (1 - 1-dose 75+ series) [facility] Start: 12-01-2027 Urine microalbumin profile DTaP,Tdap,Td Vaccine (2 - Td or Tdap) [facility] Start: 04-11-2027 Screening for malign ant neoplasm of colon [facility] Start: 05-09-2024 Advance Directive Discussion Advance Directive Discussion [facility] Start: 01-08-2024 Covid-19 Vaccine ( season) Covid-19 Vaccine ( season) [facility] Start: 08-07-2023 Diabetes Screening Diabetes Screenin g [facility] Start: 05-09-2023 Advance Directive Discussion Advance Directive Discussion [facility] Start: 2020 Pneumococcal Vaccine : 65+ (1 of 1 - PCV) Pneumococcal Vaccine: 65+ (1 of 1 - PCV) [facility] Start: 04-03-2019 Lipid panel Lipid Screening [facility] Start: 08-12-2017 Screening for malign ant neoplasm of breast Mammogram Screening [facility] Start: 05-31-2017 End: 05-31-2017 Appointment Appointment [facility] Work Phone: Start: 03-09-2017 End: 03-09-2017 Appointment Appointment [facility] Start: 02-21-2017 End: 02-21-2017 Appointment Appointment [facility] Work Phone: Start: 02-21-2017 End: 02-22-2017 Follow Up Appt 3 months Follow Up Appt 3 months [facility] Work Phone: Start: 02-21-2017 End: 02-22-2017 [facility] Work Phone: Start: 02-09-2017 End: 02-09-2017 Appointment Appointment [facility] Start: 01-20-2017 End: 01-20-2017 *HSVS HSV Culture Screen [id number] *HSVS HSV Culture Screen [id number] [facility] Start: 01-20-2017 End: 01-21-2017 Herpes simplex virus 1+2 IgG Ab [Units/volume] in Serum *HS12G Herpes Simplex Antibody [facility] Start: 01-20-2017 End: 01-20-2017 Appointment Appointment [facility] Start: 01-20-2017 End: 01-20-2017 *HSVS HSV Culture Screen [id number] *HSVS HSV Culture Screen [id number] [facility] Start: 01-20-2017 End: 01-21-2017 Herpes simplex virus 1+2 IgG Ab [Units/volume] in Serum *HS12G Herpes Simplex Antibody [facility] Start: 12-23-2016 End: 12-23-2016 Appointment Appointment [facility] Work Phone: Start: 12-23-2016 End: 12-23-2016 Appointment Appointment [facility] Work Phone: Start: 11-15-2016 End: 11-15-2016 Follow Up Appt 3 months Follow Up Appt 3 months [facility] Start: 11-15-2016 End: 11-15-2016 Pacer Clinic Pacer Clinic [facility] Start: 11-15-2016 End: 11-15-2016 Appointment Appointment [facility] Work Phone: Start: 11-15-2016 End: 11-15-2016 Follow Up Appt 3 months Follow Up Appt 3 months [facility] Work Phone: Start: 11-15-2016 End: 11-15-2016 Pacer Clinic Pacer Clinic [facility] Work Phone: Start: 10-25-2016 End: 10-25-2016 Appointment Appointment [facility] Work Phone: Start: 10-25-2016 End: 10-25-2016 Appointment Appointment [facility] Work Phone: Start: 10-08-2016 End: 10-08-2016 *BMP *BMP [facility] Start: 10-08-2016 End: 10-08-2016 *BMP *BMP [facility] Work Phone: Start: 09-22-2016 End: 09-22-2016 *BMP *BMP [facility] Start: 09-22-2016 End: 09-22-2016 Appointment Appointment [facility] Work Phone: Start: 09-22-2016 End: 09-22-2016 CBC W Auto Differential panel - Blood *CBC without Diff [facility] Start: 09-22-2016 End: 12-20-2016 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 [facility] Start: 09-22-2016 End: 09-22-2016 Ecg routine ecg w/least 12 lds w/i&r EKG (In office) [facility] Start: 09-22-2016 End: 12-20-2016 Follow Up Appt 3 months Follow Up Appt 3 months [facility] Start: 09-22-2016 End: 10-08-2016 Left Heart Cath Left Heart Cath [facility] Start: 09-22-2016 End: 09-22-2016 *BMP *BMP [facility] Work Phone: Start: 09-22-2016 End: 09-22-2016 CBC W Auto Differential panel - Blood *CBC without Diff [facility] Work Phone: Start: 09-22-2016 End: 12-20-2016 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 [facility] Work Phone: Start: 09-22-2016 End: 09-22-2016 Electrocardiogram, complete EKG (In office) [facility] Work Phone: Start: 09-22-2016 End: 12-20-2016 Follow Up Appt 3 months Follow Up Appt 3 months [facility] Work Phone: Start: 09-22-2016 End: 10-08-2016 Left Heart Cath Left Heart Cath [facility] Work Phone: Start: 04-26-2016 End: 09-22-2016 Follow Up Appt 6 months Follow Up Appt 6 months [facility] Start: 04-26-2016 End: 09-22-2016 Pacer Clinic Pacer [facility] Start: 04-26-2016 End: 09-22-2016 Follow Up Appt 6 months Follow Up Appt 6 months [facility] Work Phone: Start: 04-26-2016 End: 09-22-2016 [facility] Work Phone: Start: 04-15-2016 End: 09-22-2016 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 [facility] Work Phone: Start: 04-15-2016 End: 09-22-2016 Follow Up Appt 1 year Follow Up Appt 1 year [facility] Work Phone: Start: 04-14-2016 End: 04-16-2016 *BMP *BMP [facility] Start: 04-14-2016 End: 04-16-2016 *UA - Urinalysis w/o Micro *UA - Urinalysis w/o Micro [facility] Start: 04-14-2016 End: 04-16-2016 CBC W Auto Differential panel - Blood *CBC without Diff [facility] Start: 04-14-2016 End: 04-16-2016 Chest x-ray X-Ray, Chest, PA & Lateral [facility] Start: 04-14-2016 End: 04-23-2016 Ecg routine ecg w/least 12 lds w/i&r EKG (In office) [facility] Start: 04-14-2016 End: 04-16-2016 INR Coag RelTime (PPP) *PT/INR [facility] Start: 04-14-2016 End: 04-15-2016 Pacemaker Generator Change Pacemaker Generator Change [facility] Start: 04-14-2016 End: 04-16-2016 *BMP *BMP [facility] Work Phone: Start: 04-14-2016 End: 04-16-2016 *UA - Urinalysis w/o Micro *UA - Urinalysis w/o Micro [facility] Work Phone: Start: 04-14-2016 End: 04-16-2016 CBC W Auto Differential panel - Blood *CBC without Diff [facility] Work Phone: Start: 04-14-2016 End: 04-16-2016 Chest x-ray X-Ray, Chest, PA & Lateral [facility] Work Phone: Start: 04-14-2016 End: 04-16-2016 Coagulation factor induced.INR assay in platelet poor plasma *PT/INR [facility] Work Phone: Start: 04-14-2016 End: 04-23-2016 Electrocardiogram, complete EKG (In office) [facility] Work Phone: Start: 04-14-2016 End: 04-15-2016 Pacemaker Generator Change Pacemaker Generator Change [facility] Work Phone: Start: 12-26-2015 End: 04-23-2016 Follow Up Appt 3 months Follow Up Appt 3 months [facility] Start: 12-26-2015 End: 04-23-2016 [facility] Start: 12-26-2015 End: 04-23-2016 Follow Up Appt 3 months Follow Up Appt 3 months [facility] Work Phone: Start: 12-26-2015 End: 04-23-2016 [facility] Work Phone: Start: 07-09-2015 End: 04-23-2016 Follow Up Appt 6 months Follow Up Appt 6 months [facility] Start: 07-09-2015 End: 04-23-2016 [facility] Start: 07-09-2015 End: 04-23-2016 Follow Up Appt 6 months Follow Up Appt 6 months [facility] Work Phone: Start: 07-09-2015 End: 04-23-2016 [facility] Work Phone: Start: 2015 RSV Vaccine (1 - Ris k 60-74 years 1-dose series) RSV Vaccine (1 - Risk 60-74 years 1-dose series) [facility] Start: 04-02-2015 End: 04-23-2016 Follow Up Appt 3 months Follow Up Appt 3 months [facility] Start: 04-02-2015 End: 04-23-2016 [facility] Start: 04-02-2015 End: 04-23-2016 Follow Up Appt 3 months Follow Up Appt 3 months [facility] Work Phone: Start: 04-02-2015 End: 04-23-2016 [facility] Work Phone: Start: 11-14-2014 End: 04-23-2016 Follow Up Appt 3 months Follow Up Appt 3 months [facility] Start: 11-14-2014 End: 04-23-2016 [facility] Start: 11-14-2014 End: 04-23-2016 Follow Up Appt 3 months Follow Up Appt 3 months [facility] Work Phone: Start: 11-14-2014 End: 04-23-2016 [facility] Work Phone: Start: 08-15-2014 End: 04-23-2016 Follow Up Appt 6 months Follow Up Appt 6 months [facility] Start: 08-15-2014 End: 04-23-2016 [facility] Start: 08-15-2014 End: 04-23-2016 Follow Up Appt 6 months Follow Up Appt 6 months [facility] Work Phone: Start: 08-15-2014 End: 04-23-2016 [facility] Work Phone: Start: 05-01-2014 End: 05-06-2014 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 [facility] Start: 05-01-2014 End: 04-23-2016 Follow Up Appt 3 months Follow Up Appt 3 months [facility] Start: 05-01-2014 End: 05-06-2014 Follow Up Appt 6 months Follow Up Appt 6 months [facility] Start: 05-01-2014 End: 04-23-2016 [facility] Start: 05-01-2014 End: 05-06-2014 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 [facility] Work Phone: Start: 05-01-2014 End: 04-23-2016 Follow Up Appt 3 months Follow Up Appt 3 months [facility] Work Phone: Start: 05-01-2014 End: 05-06-2014 Follow Up Appt 6 months Follow Up Appt 6 months [facility] Work Phone: Start: 05-01-2014 End: 04-23-2016 [facility] Work Phone: Start: 04-15-2014 End: 04-23-2016 Follow Up Appt 3 months Follow Up Appt 3 months [facility] Start: 04-15-2014 End: 04-23-2016 [facility] Start: 04-15-2014 End: 04-23-2016 Follow Up Appt 3 months Follow Up Appt 3 months [facility] Work Phone: Start: 04-15-2014 End: 04-23-2016 [facility] Work Phone: Start: 12-28-2013 End: 04-23-2016 Follow Up Appt 3 months Follow Up Appt 3 months [facility] Start: 12-28-2013 End: 04-23-2016 [facility] Start: 12-28-2013 End: 04-23-2016 Follow Up Appt 3 months Follow Up Appt 3 months [facility] Work Phone: Start: 12-28-2013 End: 04-23-2016 [facility] Work Phone: Start: 08-15-2013 End: 12-28-2013 Follow Up Appt 3 months Follow Up Appt 3 months [facility] Start: 08-15-2013 End: 12-28-2013 [facility] Start: 08-15-2013 End: 12-28-2013 Follow Up Appt 3 months Follow Up Appt 3 months [facility] Work Phone: Start: 08-15-2013 End: 12-28-2013 [facility] Work Phone: Start: 02-01-2013 End: 12-28-2013 Follow Up Appt 3 months Follow Up Appt 3 months [facility] Start: 02-01-2013 End: 12-28-2013 [facility] Start: 02-01-2013 End: 12-28-2013 Follow Up Appt 3 months Follow Up Appt 3 months [facility] Work Phone: Start: 02-01-2013 End: 12-28-2013 [facility] Work Phone: Start: 10-23-2012 End: 12-28-2013 Follow Up Appt 3 months Follow Up Appt 3 months [facility] Start: 10-23-2012 End: 12-28-2013 [facility] Start: 10-23-2012 End: 12-28-2013 Follow Up Appt 3 months Follow Up Appt 3 months [facility] Work Phone: Start: 10-23-2012 End: 12-28-2013 [facility] Work Phone: Start: 07-19-2012 End: 12-28-2013 Follow Up Appt 3 months Follow Up Appt 3 months [facility] Start: 07-19-2012 End: 12-28-2013 [facility] Start: 07-19-2012 End: 12-28-2013 Follow Up Appt 3 months Follow Up Appt 3 months [facility] Work Phone: Start: 07-19-2012 End: 12-28-2013 [facility] Work Phone: Start: 03-16-2012 End: 12-28-2013 Ecg routine ecg w/least 12 lds w/i&r EKG (In office) [facility] Start: 03-16-2012 End: 03-16-2012 Follow Up Appt 1 year Follow Up Appt 1 year [facility] Start: 03-16-2012 End: 12-28-2013 Electrocardiogram, complete EKG (In office) [facility] Work Phone: Start: 03-16-2012 End: 03-16-2012 Follow Up Appt 1 year Follow Up Appt 1 year [facility] Work Phone: Start: 2005 Shingrix Vaccine (1 of 2) Shingrix Vaccine (1 of 2) [facility] Start: 2000 Screening for malign ant neoplasm of colon [facility] Start: 1974 Pneumococcal Vaccine : 50+ (1 of 2 - PCV) Pneumococcal Vaccine: 50+ (1 of 2 - PCV) [facility] Start: 1974 Shingrix Vaccine (1 of 2) Shingrix Vaccine (1 of 2) [facility] Start: 1973 Anxiety Screening Anxiety Screening [facility] Start: 1973 Depression Screening Depression Scre ening [facility] Bacteria identified in Urine by Culture URINE CULTURE Microbiology Routine Acute UTI Ordered: 03/15/2024 [facility] Work Phone: Comment on above: Ordered: 03/15/2024 Bacteria identified in Urine by Culture BACTERIAL CULTURE, URINE Microbiology Routine Burning with urination Ordered: 06/27/2024 [facility] Work Phone: Comment on above: Ordered: 06/27/2024 DXA Bone [Mass/Area] Bone density [facility] Lipid 1996 panel - Serum or Plasma [facility] MG Breast - bilatera l Screening [facility] Work Phone: MG Breast - bilatera l Screening [facility] Immunizations Immunization Date Immunization Notes Care Provider [facility] 03-13-2024 Seasonal trivalent influenza vaccine, adjuvanted, preservative free Dr. Melba Young MD Work Phone: [facility] 03-14-2023 influenza, injectabl e, quadrivalent, preservative free Dr. Melba Young Work Phone: [facility] 04-16-2022 influenza, injectabl e, quadrivalent, preservative free Dr. Melba Young Work Phone: [facility] 04-16-2022 influenza, seasonal, injectable Dr. Melba Young Work Phone: [facility] 07-23-2020 Covid (Andrea & Andrea) Dr. Melba Young Work Phone: [facility] 03-20-2020 influenza, injectabl e, quadrivalent, contains preservative Ines Arcos PA-C Work Phone: [facility] 03-28-2019 influenza, seasonal, injectable Ines Arcos PA-C Work Phone: [facility] 03-27-2018 influenza, injectabl e, quadrivalent, contains preservative Ines Arcos PA-C Work Phone: [facility] 11-30-2017 tetanus toxoid, redu stella diphtheria toxoid, and acellular pertussis vaccine, adsorbed Ines Arcos PA-C Work Phone: [facility] 02-15-2017 influenza, injectabl e, quadrivalent, contains preservative Ines Arcos PA-C Work Phone: [facility] 05-19-2010 influenza virus vaccine, unspecified formulation Ines Arcos PA-C Work Phone: [facility] Payers Date Payer Category Payer [facility] [id number] 2024 Unknown [id number] 2024 Medicare [id number] 2024 Unknown [id number] 2023 Self-pay [id number] 2015 Private Health Insurance JOSEPHINE CORADO POS [id number] 2015-Present [phone] [address] [place] [address] POS [id number] 2015 Private Health Insurance [id number] 2004 Unknown [facility] [id number] 1955 Unknown [id number] 51 Unknown ANTHEM [id number] Unknown [id number] 2.16.840.1.236538.3.579.2.4 62 Unknown [id number] 2.16.840.1.776768.3.579.2.4 62 Unknown [id number] 2.16.840.1.526551.3.579.2.4 62 Unknown [id number] 2.16.840.1.954421.3.579.2.4 62 Unknown [id number] 2.16.840.1.021423.3.579.2.4 62 Unknown [id number] 2.16.840.1.430707.3.579.2.4 62 Unknown [id number] 2.16.840.1.760443.3.579.2.4 62 Unknown [id number] 2.16.840.1.911406.3.579.2.4 62 Unknown [id number] 2.16.840.1.654552.3.579.2.4 62 Unknown [id number] 2.16.840.1.698895.3.579.2.4 62 Unknown [id number] 2.16.840.1.971304.3.579.2.4 62 Unknown [id number] 2.16.840.1.873383.3.579.2.4 62 Unknown [id number] 2.16.840.1.552574.3.579.2.4 62 Unknown [id number] 2.16.840.1.963160.3.579.2.4 62 Unknown [id number] 2.16.840.1.055001.3.579.2.4 62 Unknown [id number] 2.16.840.1.211228.3.579.2.4 62 Unknown [id number] 2.16.840.1.577819.3.579.2.4 62 Unknown [id number] 2.16.840.1.299930.3.579.2.4 62 Unknown [id number] 2.16.840.1.618193.3.579.2.4 62 Social History Date Type Detail Facility Start: 06-01-2021 End: 03-14-2023 Tobacco smoking status VAIS Unknown if ever smoked [facility] Start: 1955 Sex Assigned At Female [facility] Start: 04-14-2012 End: 03-14-2023 Tobacco smoking status NHIS Never smoked tobacco [facility] Work Phone: Start: 04-14-2012 Tobacco use and exposure Smokeless tobacco non-user [facility] Start: 03-15-2024 End: 06-27-2024 Alcoholic beverage intake Current drinker of alcohol (finding) [facility] Start: 2020 End: 03-15-2024 History of Social function [facility] Start: 2020 End: 03-15-2024 Tobacco use panel [facility] National Score (1-10 0), lower number is lower risk Not on file [facility] Start: 1955 Sex assigned at Not on file [facility] Start: 08-06-2024 End: 08-23-2024 Sex Female (finding) [facility] Functional Status Date Assessment Result Facility 04-26-2014 Are you deaf, or do you have serious difficulty hearing No 04/26/2014 10:52 AM Shireen King MA No [facility] 04-26-2014 Are you blind, or do you have serious difficulty seeing, even when wearing glasses No 04/26/2014 10:52 AM Shireen King MA No [facility] 04-26-2014 Do you have serious difficulty walking or climbing stairs No 04/26/2014 10:52 AM Shireen King MA No [facility] 04-26-2014 Do you have difficul ty dressing or bathing No 04/26/2014 10:52 AM Shireen King MA No [facility] 04-26-2014 Because of a physica l, mental, or emotional condition, do you have difficulty doing errands alone such as visiting a physician's office or shopping No 04/26/2014 10:52 AM Shireen King MA [facility] Mental Status Date Assessment Result Facility 04-26-2014 Because of a physica l, mental, or emotional condition, do you have serious difficulty concentrating, remembering, or making decisions No 04/26/2014 10:52 AM EST Shireen Pineda MA No [facility] Clinical Notes 03-15-2024 to 08-22-2024 Telephone Encounter - Marian WolfeMICHELLE - 06/30/2024 12:55 PM ESTTelephone Encounter - Marian WolfeMICHELLE - 06/30/2024 12:55 PM Bhupendra Jacob PA - 06/27/2024 4:38 PM EST Note Date & Type Note Facility 08-22-2024 Radiology Diagnostic study note [facility] Imaging Services [address], [place] [address] Liver MR#: [id number] Acct: [id number] Name: GISEL SAWYER Rep #: [id number] : 1955 F 69 From: Danielle Mahajan MD PCP: Dr. Melba Young MD Status: R EG CLI Study:Liver Date of Exam: 08/22/24 Exam# [id number] Ordering Dr: Stephanie Orta MD PROCEDURE: LIVER (USLI), 08/22/2024 REASON FOR EXAM: ELEVATED LIVER ENZYMES COMPARISON: None FINDINGS: Liver: Unremarkable. 12.2 cm in length. Gallbladder: Unremarkable. Reportedly, sonographic Steen's was negative. Biliary tree: Unremarkable. CBD measures 4 mm. Pancreas: Partially obscured by shadowing bowel gas, grossly unremarkable as visualized. Right kidney: Unremarkable. 10.4 cm in length. Other: No visualized free fluid. US/Liver IMPRESSION: 1. Grossly unremarkable sonographic appearance of the hepatic parenchyma. No biliary dilatation. 2. Additional description as above. Reading Location: [id number] CC: Dr. Melba Young MD; Dr. Stephanie Orta MD ~ Web Master: Signed [facility] 06-30-2024 Telephone encount er Note Patient notified of results, verbalized understanding of instructions given. Marian Wolfe MA [facility] 06-30-2024 Miscellaneous Notes Formattin g of this note might be different from the original. Patient notified of results, verbalized understanding of instructions given. Marian Wolfe MA Please contact patient and let her know she is on appropriate antibiotic therapy. Continue as prescribed. documented in this encounter [facility] 06-30-2024 Telephone encount er Note Please contact patient and let her know she is on appropriate antibiotic therapy. Continue as prescribed. [facility] 06-27-2024 Note HNO ID: [id number] Author: BHUPENDRA FIGUEROA PA Service: ? Author Type: Physician Doctor Of Podiatry Type: Progress Notes Filed: 06/27/2024 16:40 Note Text: This note was created using [employer]. Subjective Gisel Sawyer is a 69 year old female. HPI 69-year-old female presents for UTI symptoms. Patient has had symptoms on and off for about a week. She has urgency, frequency, bladder pressure. She denies any blood in the urine, back pain, abdominal pain, fevers or vomiting. She has had a UTI in the past and this feels similar. She did take care, [id number]-[id number] a few days ago which did help for short time. No other complaint. PAST MEDICAL HISTORY Diagnosis Date Complex endometrial hyperplasia with atypia Diffuse cystic mastopathy Diverticulosis of colon (without mention of hemorrhage) Internal hemorrhoids without mention of complication PMH - PAST MEDICAL HISTORY OF heart condition WPW PMH - PAST MEDICAL HISTORY OF pacemaker Rheumatoid arthritis (HCC) PAST SURGICAL HISTORY Procedure Laterality Date BIOPSY BREAST OPEN INCISIONAL Bx of breast, incisional, left breast DELIVERY ONLY , low cervical x 2 COLONOSCOPY FLX DX W/COLLJ SPEC WHEN PFRMD 01/24/08 COLONOSCOPY FLX DX W/COLLJ SPEC WHEN PFRMD 04/11/2017 repeat 10 years DILATION AND CURETTAGE DXAND/THER NONOBSTETRIC x 2 PACEMAKER IMPLANT 04/2016 Pacemaker changed out PRTL THYROID LOBECTOMY UNI W/WO ISTHMUSECTOMY TOTAL ABDOMINAL HYSTERECT W/WO RMVL TUBE OVARY 02/23/2007 focal complex endometrial hyperplasia with atypia ALLERGIES Patient has no known allergies. MEDICATIONS alendronate (FOSAMAX) 70 mg tablet Take 1 tablet by mouth one time a week. hydrOXYzine HCl (ATARAX) 25 mg tablet Take 25 mg by mouth three times a day as needed. zolpidem (AMBIEN) 10 mg Take 10 mg by mouth at bedtime as needed. LATANOPROST OPHTHALMIC Use 1 Drop in eyes once daily. leucovorin (LEUCOVORIN) 15 mg tablet Take 15 mg by mouth one time a week. folic acid 1 mg tablet Take 2 mg by mouth once daily. methotrexate 2.5 mg tablet Take 2.5 mg by mouth one time only. Take 6 tablets weekly. nitrofurantoin monohydrate and macrocrystal (MACROBID) 100 mg capsule Take 1 capsule by mouth two times a day for 5 days. dicyclomine (BENTYL) 10 mg capsule Take 1 capsule by mouth three times daily as needed (bowel spasm). (Patient not taking: Reported on 03/15/2024) ESTRACE 0.01 % (0.1 mg/gram) vaginal cream insert 1 gram vaginally 3 NIGHTS PER WEEK (Patient not taking: Reported on 03/15/2024) hydroxychloroquine (PLAQUENIL) 200 mg ORAL tablet Take 200 mg by mouth once daily. (Patient not taking: Reported on 03/15/2024) FAMILY HISTORY Problem Relation Age of Onset Stroke Mother Thyroid Mother Osteoporosis Mother Hyperlipidemia Mother Coronary Artery Disease Father Arthritis Father Heart Father Open Heart Surgery Social History Tobacco Use Smoking status: Never Smokeless tobacco: Never Substance Use Topics Alcohol use: Yes Comment: OCCASIONALLY Drug use: No Review of Systems Constitutional: Negative for chills and fever. HENT: Negative for congestion, ear pain and sore throat. Respiratory: Negative for cough and shortness of breath. Cardiovascular: Negative for chest pain. Gastrointestinal: Negative for abdominal pain, diarrhea and vomiting. Genitourinary: Positive for frequency and urgency. Negative for dysuria, vaginal bleeding and vaginal discharge. Objective BP 138/82 Pulse 70 Temp 36.4 ?C (97.6 ?F) (Tympanic) Resp 18 Wt 55.5 kg (122 lb 5.7 oz) LMP 12/22/2006 SpO2 98% BMI 19.16 kg/m? Physical Exam Vitals and nursing note reviewed. Constitutional: General: She is not in acute distress. Appearance: Normal appearance. She is not toxic-appearing. HENT: Nose: Nose normal. Mouth/Throat: Mouth: Mucous membranes are moist. Eyes: Conjunctiva/sclera: Conjunctivae normal. Cardiovascular: Rate and Rhythm: Normal rate and regular rhythm. Pulmonary: Effort: Pulmonary effort is normal. Breath sounds: Normal breath sounds. Abdominal: General: Abdomen is flat. Palpations: Abdomen is soft. Tenderness: There is no abdominal tenderness. There is no right CVA tenderness, left CVA tenderness, guarding or rebound. Skin: General: Skin is warm and dry. Neurological: Mental Status: She is alert. Assessment and Plan ASSESSMENT/PLAN: 1. Acute UTI - ICD9: 599.0, ICD10: N39.0 (primary diagnosis) acute - UA positive for karen esterase, hematuria, and nitrates - Send urine for culture - Begin treatment with Macrobid 100 mg BID for 5 days - Patient education for prevention given 2. Burning with urination - ICD9: 788.1, ICD10: R30.0 - UA DIP, URINE (POC) - BACTERIAL CULTURE, URINE Diagnosis and treatment plan were discussed and questions were answered to the patient's satisfaction. Pt acknowledged understanding of concepts and follow up plan. Specific signs and sy (more content not included)... [facility] 06-27-2024 History of Presen t illness Narrative This note was created using [employer]. Subjective Gisel Sawyer is a 69 year old female. HPI 69-year-old female presents for UTI symptoms. Patient has had symptoms on and off for about a week. She has urgency, frequency, bladder pressure. She denies any blood in the urine, back pain, abdominal pain, fevers or vomiting. She has had a UTI in the past and this feels similar. She did take care, vwft-joq-iddcdim a few days ago which did help for short time. No other complaint. PAST MEDICAL HISTORY Diagnosis Date Complex endometrial hyperplasia with atypia Diffuse cystic mastopathy Diverticulosis of colon (without mention of hemorrhage) Internal hemorrhoids without mention of complication PMH - PAST MEDICAL HISTORY OF heart condition WPW PMH - PAST MEDICAL HISTORY OF pacemaker Rheumatoid arthritis (HCC) PAST SURGICAL HISTORY Procedure Laterality Date BIOPSY BREAST OPEN INCISIONAL Bx of breast, incisional, left breast DELIVERY ONLY , low cervical x 2 COLONOSCOPY FLX DX W/COLLJ SPEC WHEN PFRMD 01/24/08 COLONOSCOPY FLX DX W/COLLJ SPEC WHEN PFRMD 04/11/2017 repeat 10 years DILATION & CURETTAGE DX&/THER NONOBSTETRIC x 2 PACEMAKER IMPLANT 04/2016 Pacemaker changed out PRTL THYROID LOBECTOMY UNI W/WO ISTHMUSECTOMY TOTAL ABDOMINAL HYSTERECT W/WO RMVL TUBE OVARY 02/23/2007 focal complex endometrial hyperplasia with atypia ALLERGIES Patient has no known allergies. MEDICATIONS alendronate (FOSAMAX) 70 mg tablet Take 1 tablet by mouth one time a week. hydrOXYzine HCl (ATARAX) 25 mg tablet Take 25 mg by mouth three times a day as needed. zolpidem (AMBIEN) 10 mg Take 10 mg by mouth at bedtime as needed. LATANOPROST OPHTHALMIC Use 1 Drop in eyes once daily. leucovorin (LEUCOVORIN) 15 mg tablet Take 15 mg by mouth one time a week. folic acid 1 mg tablet Take 2 mg by mouth once daily. methotrexate 2.5 mg tablet Take 2.5 mg by mouth one time only. Take 6 tablets weekly. nitrofurantoin monohydrate and macrocrystal (MACROBID) 100 mg capsule Take 1 capsule by mouth two times a day for 5 days. dicyclomine (BENTYL) 10 mg capsule Take 1 capsule by mouth three times daily as needed (bowel spasm). (Patient not taking: Reported on 03/15/2024) ESTRACE 0.01 % (0.1 mg/gram) vaginal cream insert 1 gram vaginally 3 NIGHTS PER WEEK (Patient not taking: Reported on 03/15/2024) hydroxychloroquine (PLAQUENIL) 200 mg ORAL tablet Take 200 mg by mouth once daily. (Patient not taking: Reported on 03/15/2024) FAMILY HISTORY Problem Relation Age of Onset Stroke Mother Thyroid Mother Osteoporosis Mother Hyperlipidemia Mother Coronary Artery Disease Father Arthritis Father Heart Father Open Heart Surgery Social History Tobacco Use Smoking status: Never Smokeless tobacco: Never Substance Use Topics Alcohol use: Yes Comment: OCCASIONALLY Drug use: No Review of Systems Constitutional: Negative for chills and fever. HENT: Negative for congestion, ear pain and sore throat. Respiratory: Negative for cough and shortness of breath. Cardiovascular: Negative for chest pain. Gastrointestinal: Negative for abdominal pain, diarrhea and vomiting. Genitourinary: Positive for frequency and urgency. Negative for dysuria, vaginal bleeding and vaginal discharge. Objective BP 138/82 Pulse 70 Temp 36.4 C (97.6 F) (Tympanic) Resp 18 Wt 55.5 kg (122 lb 5.7 oz) LMP 12/22/2006 SpO2 98% BMI 19.16 kg/m Physical Exam Vitals and nursing note reviewed. Constitutional: General: She is not in acute distress. Appearance: Normal appearance. She is not toxic-appearing. HENT: Nose: Nose normal. Mouth/Throat: Mouth: Mucous membranes are moist. Eyes: Conjunctiva/sclera: Conjunctivae normal. Cardiovascular: Rate and Rhythm: Normal rate and regular rhythm. Pulmonary: Effort: Pulmonary effort is normal. Breath sounds: Normal breath sounds. Abdominal: General: Abdomen is flat. Palpations: Abdomen is soft. Tenderness: There is no abdominal tenderness. There is no right CVA tenderness, left CVA tenderness, guarding or rebound. Skin: General: Skin is warm and dry. Neurological: Mental Status: She is alert. Assessment and Plan ASSESSMENT/PLAN: 1. Acute UTI - ICD9: 599.0, ICD10: N39.0 (primary diagnosis) acute - UA positive for karen esterase, hematuria, and nitrates - Send urine for culture - Begin treatment with Macrobid 100 mg BID for 5 days - Patient education for prevention given 2. Burning with urination - ICD9: 788.1, ICD10: R30.0 - UA DIP, URINE (POC) - BACTERIAL CULTURE, URINE Diagnosis and treatment plan were discussed and questions were answered to the patient's satisfaction. Pt acknowledged understanding of concepts and follow up plan. Specific signs and symptoms that would indicate the need for higher level of care were discussed in detail warranting prompt ER evaluation. JIMENEZ Perry documented in this encounter [facility] 04-23-2024 Evaluation note Diagnosis Onset Date Resolution Anxiety chronic April 23, 2024 11:00am Constipation chronic April h2023 11:00am Osteoporosis chronic April h2023 11:00am [facility] Work Phone: 1(239) 869-968811-07-2024 NoteHNO ID: [id number] Author: INES ARCOS PA-C Service: ? Author Type: Physician Doctor Of Podiatry Type: Progress Notes Filed: 03/15/2024 09:22 Note Text: This note was created using angelMD. Subjective Gisel Sawyer is a 68 year old female. HPI Patient presents with a chief complaint of urinary frequency, dysuria over the past 3 days. She tried some yawr-upq-jsqguwa urinary medication which did not seem to help so she came in for evaluation. She has had some pelvic cramping as well as urgency. No back pain. No vomiting or fever. No nausea. No vaginal complaints. No history of recurrent UTIs recently. Review of Systems Constitutional: Negative. HENT: Negative. Respiratory: Negative. Cardiovascular: Negative. Gastrointestinal: Negative. Genitourinary: Positive for dysuria, frequency, pelvic pain and urgency. Negative for hematuria, vaginal bleeding, vaginal discharge and vaginal pain. Musculoskeletal: Negative. All other systems reviewed and are negative. PAST MEDICAL HISTORY Diagnosis Date Complex endometrial hyperplasia with atypia Diffuse cystic mastopathy Diverticulosis of colon (without mention of hemorrhage) Internal hemorrhoids without mention of complication PMH - PAST MEDICAL HISTORY OF heart condition WPW PMH - PAST MEDICAL HISTORY OF pacemaker Rheumatoid arthritis (HCC) Current Outpatient Medications Medication Sig Dispense Refill alendronate (FOSAMAX) 70 mg tablet Take 1 tablet by mouth one time a week. hydrOXYzine HCl (ATARAX) 25 mg tablet Take 25 mg by mouth three times a day as needed. zolpidem (AMBIEN) 10 mg Take 10 mg by mouth at bedtime as needed. LATANOPROST OPHTHALMIC Use 1 Drop in eyes once daily. leucovorin (LEUCOVORIN) 15 mg tablet Take 15 mg by mouth one time a week. folic acid 1 mg tablet Take 2 mg by mouth once daily. 0 methotrexate 2.5 mg tablet Take 2.5 mg by mouth one time only. Take 6 tablets weekly. nitrofurantoin monohydrate and macrocrystal (MACROBID) 100 mg capsule Take 1 capsule by mouth two times a day with meals for 5 days. 10 capsule 0 dicyclomine (BENTYL) 10 mg capsule Take 1 capsule by mouth three times daily as needed (bowel spasm). (Patient not taking: Reported on 03/15/2024) 20 capsule 2 ESTRACE 0.01 % (0.1 mg/gram) vaginal cream insert 1 gram vaginally 3 NIGHTS PER WEEK (Patient not taking: Reported on 03/15/2024) 0 hydroxychloroquine (PLAQUENIL) 200 mg ORAL tablet Take 200 mg by mouth once daily. (Patient not taking: Reported on 03/15/2024) 0 No current facility-administered medications for this visit. PAST SURGICAL HISTORY Procedure Laterality Date BIOPSY BREAST OPEN INCISIONAL Bx of breast, incisional, left breast DELIVERY ONLY , low cervical x 2 COLONOSCOPY FLX DX W/COLLJ SPEC WHEN PFRMD 01/24/08 COLONOSCOPY FLX DX W/COLLJ SPEC WHEN PFRMD 04/11/2017 repeat 10 years DILATION AND CURETTAGE DXAND/THER NONOBSTETRIC x 2 PACEMAKER IMPLANT 04/2016 Pacemaker changed out PRTL THYROID LOBECTOMY UNI W/WO ISTHMUSECTOMY TOTAL ABDOMINAL HYSTERECT W/WO RMVL TUBE OVARY 02/23/2007 focal complex endometrial hyperplasia with atypia FAMILY HISTORY Problem Relation Age of Onset Stroke Mother Thyroid Mother Osteoporosis Mother Hyperlipidemia Mother Coronary Artery Disease Father Arthritis Father Heart Father Open Heart Surgery Social History Tobacco Use Smoking status: Never Smokeless tobacco: Never Substance Use Topics Alcohol use: Yes Comment: OCCASIONALLY Drug use: No Objective BP 150/84 Pulse 82 Temp 36.4 ?C (97.6 ?F) Resp 20 Wt 57.6 kg (126 lb 15.8 oz) LMP 12/22/2006 SpO2 99% BMI 19.89 kg/m? Physical Exam Vitals reviewed. Constitutional: Appearance: Normal appearance. HENT: Head: Normocephalic and atraumatic. Cardiovascular: Rate and Rhythm: Normal rate and regular rhythm. Heart sounds: Normal heart sounds. Pulmonary: Effort: Pulmonary effort is normal. Breath sounds: Normal breath sounds. Abdominal: General: Abdomen is flat. Palpations: Abdomen is soft. Tenderness: There is no abdominal tenderness. There is no right CVA tenderness, left CVA tenderness or guarding. Musculoskeletal: Cervical back: Neck supple. Lymphadenopathy: Cervical: No cervical adenopathy. Skin: General: Skin is warm and dry. Findings: No rash. Neurological: General: No focal deficit present. Mental Status: She is alert and oriented to person, place, and time. Assessment and Plan ASSESSMENT/PLAN: 1. Acute UTI - ICD9: 599.0, ICD10: N39.0 acute - UA positive for karen esterase, hematuria, and proteinuria - Send urine for culture - Begin treatment with Macrobid 100 mg BID for 5 days - UA DIP, URINE (POC) - URINE CULTURE JIMENEZ [facility]11-07-2024 History of Present illness Narrative* Ines Arcos PA-C - 03/15/2024 9:20 AM EST This note was created using [employer] Technology[employer]. Subjective Gisel Sawyer is a 68 year old female. HPI Patient presents with a chief complaint of urinary frequency, dysuria over the past 3 days. She tried some hvec-idm-ehnqozf urinary medication which did not seem to help so she came in for evaluation. She has had some pelvic cramping as well as urgency. No back pain. No vomiting or fever. No nausea. No vaginal complaints. No history of recurrent UTIs recently. Review of Systems Constitutional: Negative. HENT: Negative. Respiratory: Negative. Cardiovascular: Negative. Gastrointestinal: Negative. Genitourinary: Positive for dysuria, frequency, pelvic pain and urgency. Negative for hematuria, vaginal bleeding, vaginal discharge and vaginal pain. Musculoskeletal: Negative. All other systems reviewed and are negative. PAST MEDICAL HISTORY Diagnosis Date Complex endometrial hyperplasia with atypia Diffuse cystic mastopathy Diverticulosis of colon (without mention of hemorrhage) Internal hemorrhoids without mention of complication PMH - PAST MEDICAL HISTORY OF heart condition WPW PMH - PAST MEDICAL HISTORY OF pacemaker Rheumatoid arthritis (HCC) Current Outpatient Medications Medication Sig Dispense Refill alendronate (FOSAMAX) 70 mg tablet Take 1 tablet by mouth one time a week. hydrOXYzine HCl (ATARAX) 25 mg tablet Take 25 mg by mouth three times a day as needed. zolpidem (AMBIEN) 10 mg Take 10 mg by mouth at bedtime as needed. LATANOPROST OPHTHALMIC Use 1 Drop in eyes once daily. leucovorin (LEUCOVORIN) 15 mg tablet Take 15 mg by mouth one time a week. folic acid 1 mg tablet Take 2 mg by mouth once daily. 0 methotrexate 2.5 mg tablet Take 2.5 mg by mouth one time only. Take 6 tablets weekly. nitrofurantoin monohydrate and macrocrystal (MACROBID) 100 mg capsule Take 1 capsule by mouth two times a day with meals for 5 days. 10 capsule 0 dicyclomine (BENTYL) 10 mg capsule Take 1 capsule by mouth three times daily as needed (bowel spasm). (Patient not taking: Reported on 03/15/2024) 20 capsule 2 ESTRACE 0.01 % (0.1 mg/gram) vaginal cream insert 1 gram vaginally 3 NIGHTS PER WEEK (Patient not taking: Reported on 03/15/2024) 0 hydroxychloroquine (PLAQUENIL) 200 mg ORAL tablet Take 200 mg by mouth once daily. (Patient not taking: Reported on 03/15/2024) 0 No current facility-administered medications for this visit. PAST SURGICAL HISTORY Procedure Laterality Date BIOPSY BREAST OPEN INCISIONAL Bx of breast, incisional, left breast DELIVERY ONLY , low cervical x 2 COLONOSCOPY FLX DX W/COLLJ SPEC WHEN PFRMD 01/24/08 COLONOSCOPY FLX DX W/COLLJ SPEC WHEN PFRMD 04/11/2017 repeat 10 years DILATION & CURETTAGE DX&/THER NONOBSTETRIC x 2 PACEMAKER IMPLANT 04/2016 Pacemaker changed out PRTL THYROID LOBECTOMY UNI W/WO ISTHMUSECTOMY TOTAL ABDOMINAL HYSTERECT W/WO RMVL TUBE OVARY 02/23/2007 focal complex endometrial hyperplasia with atypia FAMILY HISTORY Problem Relation Age of Onset Stroke Mother Thyroid Mother Osteoporosis Mother Hyperlipidemia Mother Coronary Artery Disease Father Arthritis Father Heart Father Open Heart Surgery Social History Tobacco Use Smoking status: Never Smokeless tobacco: Never Substance Use Topics Alcohol use: Yes Comment: OCCASIONALLY Drug use: No Objective BP 150/84 Pulse 82 Temp 36.4 C (97.6 F) Resp 20 Wt 57.6 kg (126 lb 15.8 oz) LMP 12/22/2006 SpO2 99% BMI 19.89 kg/m Physical Exam Vitals reviewed. Constitutional: Appearance: Normal appearance. HENT: Head: Normocephalic and atraumatic. Cardiovascular: Rate and Rhythm: Normal rate and regular rhythm. Heart sounds: Normal heart sounds. Pulmonary: Effort: Pulmonary effort is normal. Breath sounds: Normal breath sounds. Abdominal: General: Abdomen is flat. Palpations: Abdomen is soft. Tenderness: There is no abdominal tenderness. There is no right CVA tenderness, left CVA tendernessor guarding. Musculoskeletal: Cervical back: Neck supple. Lymphadenopathy: Cervical: No cervical adenopathy. Skin: General: Skin is warm and dry. Findings: No rash. Neurological: General: No focal deficit present. Mental Status: She is alert and oriented to person, place, and time. Assessment and Plan ASSESSMENT/PLAN: 1. Acute UTI - ICD9: 599.0, ICD10: N39.0 acute - UA positive for karen esterase, hematuria, and proteinuria - Send urine for culture - Begin treatment with Macrobid 100 mg BID for 5 days - UA DIP, URINE (POC) - URINE CULTURE Ines Arcos PA-C documented [facility]* Diagnosis Onset Date Resolution Status Paroxysmal atrial fibrillation chronic Presence of cardiac pacemaker chronic Immvn-Jccqfnarf-Decge syndrome chronic Paroxysmal atrial fibrillation chronic Presence of cardiac pacemaker chronic Rhprh-Pnqdifepy-Ylsat syndrome [facility] Work Phone: Evaluation note* Diagnosis Onset Date Resolution Status Paroxysmal atrial fibrillation chronic Presence of cardiac pacemaker chronic Wtset-Jjidzioqr-Jdbae syndrome chronic Chronic constipation chronic Osteoporosis chronic Rheumatoid arthritis [facility] Work Phone: Evaluation note* Diagnosis Onset Date Resolution Status Paroxysmal atrial fibrillation chronic Presence of cardiac pacemaker chronic Dkfrx-Wqmwulywi-Jraxb syndrome chronic Chronic constipation chronic Osteoporosis chronic Rheumatoid arthritis chronic Paroxysmal atrial fibrillation chronic Presence of cardiac pacemaker chronic Rquko-Uiioyhble-Pwruv syndrome [facility] Work Phone: Evaluation note* Diagnosis Onset Date Resolution Status Chronic constipation chronic Osteoporosis chronic Rheumatoid arthritis chronic Paroxysmal atrial fibrillation chronic Presence of cardiac pacemaker chronic Samzt-Ibqfvezae-Lgrcr syndrome [facility] Work Phone: Evaluation note* Diagnosis Onset Date Resolution Status Anxiety acute Health care maintenance acut e Chronic constipation chronic Osteoporosis chronic Rheumatoid arthritis chronic [facility] Work Phone: Evaluation note* Diagnosis Onset Date Resolution Status Anxiety acute Health care maintenance acut e Chronic constipation chronic Osteoporosis chronic Rheumatoid arthritis chronic Paroxysmal atrial fibrillation chronic Presence of cardiac pacemaker chronic Utvzi-Xoyoyslpa-Gyiuq (WPW) syndrome chronic [facility] Work Phone: Evaluation note* Diagnosis Onset Date Resolution Status Paroxysmal atrial fibrillation chronic Presence of cardiac pacemaker chronic Vdvai-Ywuzcesag-Rchjg syndrome chronic Health care maintenance acut e Hyperlipidemia acute Murmur chronic Osteoporosis chronic Rheumatoid arthritis chronic [facility] Work Phone: Evaluation note* Diagnosis Onset Date Resolution Status Paroxysmal atrial fibrillation chronic Presence of cardiac pacemaker chronic Ftucn-Gknuxzobf-Zgtan syndrome chronic Health care maintenance acut e Hyperlipidemia acute Murmur chronic Osteoporosis chronic Rheumatoid arthritis chronic Paroxysmal atrial fibrillation chronic Presence of cardiac pacemaker chronic Wewvy-Porjmzfmk-Kruxt (WPW) syndrome chronic Murmur chronic Presence of cardiac pacemaker chronic Dscfn-Dzqdpirsu-Xxuki (WPW) syndrome chronic [facility] Work Phone: Evaluation note* Diagnosis Onset Date Resolution Status Immunization due noneactive [facility] Work Phone: Evaluation noteNo assessment information available [facility] Work Phone: Evaluation note* Diagnosis Acute UTI- Primary Urinary tract infection, site not specified [facility] Diagnosis Acute UTI- Primary Urinary tract infection, site not specified Burning with urination Dysuria documented in this encounter [facility] for referral (narrative)No reason for referral information available[facility] Work [facility]: Summary Purpose Family History No Family History Records Found Relationship Condition Age at Onset Recorded Date/T mateusz father Myocardial infarction 70 Arthritis Unknown mother Cerebrovascular accident (CVA) Unknown Heterozygous factor V Leiden mutation Unk nown Cardiac disease Unknown Advance Directives No Advanced Directives Records Found Advance Directive Response Recorded Date/ Time Advance Directives No April 16, 2016 11:58am Living Will Yes April 07 017 11:48am Power of Body Engineer No April 11, 2017 8:14pm Advance Directive Response Recorded Date/ Time Advance Directives No April 16, 2016 10:58am Living Will Yes April 07 10:48am Power of Body Engineer No April 11, 2017 7:14pm Advance Directive Response Recorded Date/ Time Living Will Yes April 07 11:48am Do you have a Healthcare Power of Body Engineer? No April 11, 2017 8:14pm Advance Directives No April 16, 2016 11:58am Advance Directive Response Recorded Date/ Time Advance Directives No April 16, 2016 11:58am Chief Complaint and Reason for Visit Chief Complaint 3 mos remote PPM f/u S/O - COPY PCP 3 mos remote PPM f/u STANDING ORDER/COPY PCP Reason for Visit Paroxysmal atrial fi brillation Presence of cardiac pacemaker Xwqdc-Eqdbdlseq-Vjltg syndrome Paroxysmal atrial fibrillation Presence of cardiac pacemaker Msxjb-Qrtfmvdbt-Ugwzd syndrome Chief Complaint 3 mos remote PPM f/u STANDING ORDER/COPY PCP 6 M FU Reason for Visit Paroxysmal atrial fi brillation Presence of cardiac pacemaker Bwfbf-Kszgxamgo-Npgjy syndrome Chronic constipation Osteoporosis Rheumatoid arthritis Chief Complaint 3 mos remote PPM f/u STANDING ORDER/COPY PCP 6 M FU 3 mos remote PPM f/u STANDING ORDER Reason for Visit Paroxysmal atrial fi brillation Presence of cardiac pacemaker Pebas-Dgtzpkgyq-Jonqq syndrome Chronic constipation Osteoporosis Rheumatoid arthritis Paroxysmal atrial fibrillation Presence of cardiac pacemaker Fwfnn-Snrzglhsp-Nulku syndrome Chief Complaint 6 M FU 3 mos remote PPM f/u STANDING ORDER SCREENING Reason for Visit Chronic constipation Osteoporosis Rheumatoid arthritis Paroxysmal atrial fibrillation Presence of cardiac pacemaker Dhlja-Kzvmxaysk-Pkmid syndrome Chief Complaint STANDING ORDER flu shot 6 M FU EORDER AND ADD VELLANKI STANDING ORDER Reason for Visit Anxiety Health care maintenance Chronic constipation Osteoporosis Rheumatoid arthritis Chief Complaint flu shot 6 M FU EORDER AND ADD VELLANKI STANDING ORDER 3 mos remote PPM f/u SCREENING Reason for Visit Anxiety Health care maintenance Chronic constipation Osteoporosis Rheumatoid arthritis Paroxysmal atrial fibrillation Presence of cardiac pacemaker Ubrin-Uthmuremc-Whdng (WPW) syndrome Chief Complaint 6 M FU EORDER AND ADD VELLANKI STANDING ORDER 3 mos remote PPM f/u SCREENING S/O- PAIN - COPY PCP Reason for Visit Anxiety Health care maintenance Chronic constipation Osteoporosis Rheumatoid arthritis Paroxysmal atrial fibrillation Presence of cardiac pacemaker Wzniu-Xtbnookfl-Gesgm (WPW) syndrome Chief Complaint S/O- PAIN - COPY PCP 3 mos remote PPM f/u FOLLOW UP S/O- PAIN- COPY PCP MURMUR Reason for Visit Paroxysmal atrial fi brillation Presence of cardiac pacemaker Gryhy-Yvqcvbihp-Qwikc syndrome Health care maintenance Hyperlipidemia Murmur Osteoporosis Rheumatoid arthritis Chief Complaint 3 mos remote PPM f/u FOLLOW UP S/O- PAIN- COPY PCP MURMUR IN OFFICE 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 / 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 @ 2:30 RE-EST / PREV 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 PT / TANA @ 2 S/O- PAIN COPY PCP Reason for Visit Paroxysmal atrial fi brillation Presence of cardiac pacemaker Csykr-Ydxxddqtp-Vxepr syndrome Health care maintenance Hyperlipidemia Murmur Osteoporosis Rheumatoid arthritis Paroxysmal atrial fibrillation Presence of cardiac pacemaker Lmyol-Whqcvqkpc-Qjaei (WPW) syndrome Murmur Presence of cardiac pacemaker Ayziw-Dnfnrrgye-Mycpy (WPW) syndrome Chief Complaint Pacer Check Remote S/O- PAIN COPY PCP FLU SHOT STANDING ORDER Reason for Visit Immunization due Chief Complaint Pacer Check Remote STANDING ORDER Pacer Check Remote S/O- PAIN- COPY PCP Chief Complaint Admit Date 3 M FU April 23, 2024 11:00am Pacer Check Remote May 04, 2024 2:00am STANDING ORDER - COPY PCP May 07, 2024 1:57pm S/O- PAIN- COPY PCP July 31, 2024 9:2 1am Reason for Visit Admit Date Anxiety April 23, 2024 11:00am Constipation April 23, 2024 11:00am Osteoporosis April 23, 2024 11:00am Chief Complaint Admit Date Pacer Check Remote May 04, 2024 2:00am STANDING ORDER - COPY PCP May 07, 2024 1:57pm S/O- PAIN- COPY PCP July 31, 2024 9:2 1am Pacer Check Remote August 03, 2024 2:1 8am ELEVATED LIVER ENZYMES August 22, 2024 7:15am Additional Source Comments INFORMATION SOURCE (unrecogn ized section and content) DATE CREATED AUTHOR 08/04/2020 Chava Carorll [facility] DATE CREATED AUTHOR AUTHOR'S ORGANIZ ATION 07/02/2024 [facility] DATE CREATED AUTHOR AUTHOR'S ORGANIZ ATION 10/12/2024 [facility] Goals (unrecognized section and content) Goals may be documented in a n alternate sectionGoals may be documented in an alternate sectionGoals may be documented in an alternate sectionGoals may be documented in an alternate sectionGoals may be documented in an alternate sectionGoals may be documented in an alternate sectionGoals may be documented in an alternate sectionGoals may be documented in an alternate sectionGoals may be documented in an alternate sectionGoals may be documented in an alternate sectionGoals may be documented in an alternate sectionGoals may be documented in an alternate sectionGoals may be documented in an alternate section Care Teams (unrecognized sec tion and content) Team Status: Active Member Role Status Dates Dr. Yusef Yan III, MD Family Provider Active Dr. Melba Young MD Primary Care Provider Active Team Status: Inactive Member Role Status Dates Dr. Melba Young MD Primary Care P rovider, Attending Provider, Referring Provider Active Team Status: Inactive Member Role Status Dates Dr. Melba Young MD Primary Care Provider Active Dr. Stephanie Orta MD Attending Provider Active Team Status: Inactive Member Role Status Dates Dr. Melba Young MD Primary Care P rofranklyn, Attending Provider, Referring Provider Active Dr. Stephanie Orta MD Other Provider Active Team Status: Inactive Member Role Status Dates Dr. Melba Young MD Primary Care Provider, Refer ring Provider Active Olivia Carlos Attending Provider Active Team Status: Inactive Member Role Status Dates Dr. Melba Young MD Primary Care Provider, Atten ding Provider Active Team Status: Inactive Member Role Status Dates Dr. Melba Young MD Primary Care Provider Active Dr. Stephanie Orta MD Attending Provider, Referring Provider Active Team Status: Inactive Member Role Status Dates Dr. Melba Young MD Referring Provider Active Olivia Carlos Active Dr. Barrett Biswas MD Primary Care Provider, Attending Provider Active Team Status: Active Member Role Status Dates Dr. Melba Young MD Primary Care Provider Active Dr. Barrett Biswas MD Attending Provider Active Team Status: Inactive Member Role Status Dates Dr. Melba Young MD Primary Care Provider, Refer ring Provider Active Dr. Barrett Biswas MD Attending Provider Active Team Status: Inactive Member Role Status Dates Dr. Melba Young MD Primary Care Provider Active Dr. Barrett Biswas MD Attending Provider Active [employer] Relationship Specialty Start Date End Date Melba Young MD [address] [facility] [address] [place] [id number]- PCP - General Internal Medicine 06/27/24 [employer] Teacher Relationship Specialty Start Date End Date Melba Young MD [address] [facility] [address] [place] [id number] PCP - General Internal Medicine 06/27/24 Team Status: Active Member Role Status Dates Dr. Melba Young MD Primary Care Provider Active Team Status: Inactive Member Role Status Dates Dr. Melba Young MD Primary Care Provider Active Start: April 23, 2024 End: April 23, 2024 Dr. Melba Young MD Attending Provider Active Start: April 23, 2024 End: April 23, 2024 Dr. Melba Young MD Referring Provider Active Start: April 23, 2024 End: April 23, 2024 Team Status: Inactive Member Role Status Dates Dr. Melba Young MD Primary Care Provider Active Start: May 04, 2024 End: May 04, 2024 Dr. Barrett Biswas MD Attending Provider Active S tart: May 04, 2024 End: May 04, 2024 Team Status: Inactive Member Role Status Dates Dr. Melba Young MD Primary Care Provider Active Start: May 07, 2024 End: May 07, 2024 Dr. Stephanie Orta MD Attending Provider Active Start: May 07, 2024 End: May 07, 2024 Dr. Stephanie Orta MD Referring Provider Active Start: May 07, 2024 End: May 07, 2024 Team Status: Inactive Member Role Status Dates Dr. Melba Young MD Primary Care Provider Active Start: July 31, 2024 End: July 31, 2024 Dr. Stephanie Orta MD Attending Provider Active Start: July 31, 2024 End: July 31, 2024 Dr. Stephanie Orta MD Referring Provider Active Start: July 31, 2024 End: July 31, 2024 Team Status: Inactive Member Role Status Dates Dr. Melba Young MD Primary Care Provider Active Start: August 03, 2024 End: August 03, 2024 Dr. Barrett Biswas MD Attending Provider Active S tart: August 03, 2024 End: August 03, 2024 Team Status: Inactive Member Role Status Dates Dr. Melba Young MD Primary Care Provider Active Start: August 22, 2024 End: August 22, 2024 Dr. Stephanie Orta MD Attending Provider Active Start: August 22, 2024 End: August 22, 2024 Dr. Stephanie Orta MD Referring Provider Active Start: August 22, 2024 End: August 22, 2024 Source Comments (unrecognize d section and content) In the event this informatio n is protected by the Federal Confidentiality of Alcohol and Drug Abuse Patient Records regulations: The Federal rules restrict any use of the information to criminally investigate or prosecute any alcohol or drug abuse patient.[facility] HospitalIn the event this information is protected by the Federal Confidentiality of Alcohol and Drug Abuse Patient Records regulations: The Federal rules restrict any use of the information to criminally investigate or prosecute any alcohol or drug abuse patient.[facility] HospitalIn the event this information is protected by the Federal Confidentiality of Alcohol and Drug Abuse Patient Records regulations: The Federal rules restrict any use of the information to criminally investigate or prosecute any alcohol or drug abuse patient.[facility] Reason for Visit (unrecogniz ed section and content) Reason Comments Urinary Problem Frequency, burning w ith urination x 2 days Reason Comments burning with urination Burning, urgency x 1 week FOR RECORDS PERTAINING TO PATIENTS WHO ARE [...] BE BASED ON THE PRIMARY CLINICAL RECORDS. [facility]. provides no warranty or guarantee of the accuracy or completeness of information in this document.
--- NOTE | 2024-10-17 08:02 | BD_ITS ---
PROCEDURE: DEXA BONE DENSITY STUDY 10/17/2024 REASON FOR EXAM: OSTEOPOROSIS F, age 69 y/o . Postmenopausal. TECHNIQUE: DXA scan of sites with data reported below. [facility] COMPARISON: Prior study dated August 03, 2022. FINDINGS: BMD and T-SCORES Lumbar spine: 0.797 g/cm2, T-score -2.3 Levels: L1 through L4 Change from prior: Improvement by 1.7%. Left femoral neck: 0.604 g/cm2, T-score -2.2 Femoral neck comparison data not recommended for monitoring change. Left total hip: 0.719 g/cm2, T-score -1.8 Change from prior: Loss of 1.4%. Right femoral neck: 0.614 g/cm2, T-score -2.1 Femoral neck comparison data not recommended for monitoring change. Right total hip: 0.749 g/cm2, T-score -1.6 Change from prior: Loss of 2.3%. The World Health Organization has defined the following categories based on bone density: Normal bone density: T-score equal to or greater than -1.0 Osteopenia: T-score between -1.0 and -2.5 Osteoporosis: T-score equal to or less than -2.5 The patient does meet the pharmacological treatment recommendations for prevention of osteoporosis. BD/Dexa Bone Density Study IMPRESSION: OSTEOPENIA. Recommend follow-up as clinically warranted. Reading Location: [place] [id number]
--- OUTSIDE RECORDS SUMMARY | 2024-10-17 08:26 | XMS RPT_ITS | CCD ---
Author Organization [facility] Care Team Providers Care Computer Assembler Name Role Phone Janice MARRUFO, Lauren Garcia Unavailable [phone] Breanna RN, Tana Hernandes Unavailable Unavailable Breanna RN, Tana M Unavailable Unavailable Hector RN, Korin M Unavailable Unavailabl cristofer Young RN, Korin M Unavailable Unavailabl cristofer Biswas MD, Barrett Botello Unavailable SUSIE Carlos, Tana Hernandes Unavailable Unavailable [place] QUILLER OPERATOR, Zo S Unavailable [phone] SUSIE Carlos, [...] Provider [phone] Olivia Carlos Attending Provider Unavailable Hananh, Dr. Beltran Primary Care Provider [phone] Dr. Barrett Biswas Attending Provider [phone] Dr. Melba Young Attending Provider [phone] Olegrant, Dr. Beltran Referring Provider [phone] Hannah, Dr. Beltran Primary Care Provider [phone] Dr. Barrett Biswas Attending Provider Unavailable Primary Care Provider Unavailabl e Hannah MARRUFO, Melba B Primary Care Provider [phone] OLEGHE, EFEWONGBE B Primary Care Unavailable Hannah MARRUFO, Dr. Beltran Primary Care Provider Hannah MARRUFO, Dr. Beltran Attending Provider [phone] [...] Care Unavailable Oleghe, Efewongbe Referring Unavailable True, Morrison Attending Unavailable True, Morrison Attending Unavailable Oleghe, Efewongbe Primary Care Unavailable Oleghe, Efewongbe Primary Care Unavailable True, Morrison Attending Unavailable Oleghe, Efewongbe Primary Care Unavailable [...] Unavailable Oleghe, Efewongbe Primary Care Unavailable True Morrison Attending Unavailable Medications Current Medications Medication Drug [...] Start: 02-23-2017 take 2 tablets by mo [facility] once daily Folic Acid 1 MG tablet Active 2 mg PO DAILY@0800 April 07, 2017 1:00am Start: 01-20-2017 FOLIC ACID 1 M G TABS FOLIC ACID [id number] Lauren Camacho MD hydrOXYzine hydrochloride 25 mg [...] METHOTREXATE 2 .5 MG TABS METHOTREXATE SODIUM [id number] Lauren Camacho MD take 1 tablet by [...] (is on for 6 months) NITROFURANTOIN MACROCRYSTAL [id number] Ankita Norris zolpidem tartrate 10 mg oral [...] TABS One tablet by mouth daily ASPIRIN [id number] Barrett Biswas MD Start: 05-01-2014 End: 01-20-2017 take 1 tablet by mouth once daily ASPIRIN EC 81 MG TBEC One tablet by mouth daily ASPIRIN [id number] Lauren Camacho MD Start: 05-01-2014 take 1 tablet by jodie th once daily ASPIRIN 81 MG TABS One tablet by mouth daily ASPIRIN [id number] Barrett Biswas MD Calcium Carbonate / Vitamin D (20 sources) Start: 08-12-2010 take 1 tablet by mouth once daily CALCIUM CARBONATE-VITAMIN D 600-125 MG-UNIT TABS One tablet by mouth daily CALCIUM CARBONATE-VITAMIN D [id number] Ankita Greta Norris Start: 08-12-2010 End: 01-20-2017 take 1 tablet by mouth once daily CALCIUM CARBONATE-VITAMIN D 600-125 MG-UNIT TABS One tablet by mouth daily CALCIUM CARBONATE-VITAMIN D 76007024214 Lauren Camacho MD Start: 08-12-2010 End: 01-20-2017 take 1 tablet by mouth once daily CALCIUM CARBONATE-VITAMIN D 600-125 MG-UNIT TABS One tablet by mouth daily CALCIUM CARBONATE-VITAMIN D 29804330405 Lauren Camacho MD Start: 08-12-2010 take 1 tablet by jodie th once daily CALCIUM CARBONATE-VITAMIN D 600-125 MG-UNIT TABS One tablet by mouth daily CALCIUM CARBONATE-VITAMIN D 48832940659 Ankita Norris citalopram 20 mg oral tablet (20 sources) Serotonin Reuptake Inhibitor Start: 08-12-2010 End: 03-16-2012 take 1 tablet by mouth every other day CITALOPRAM HYDROBROMIDE 20 MG TABS 1 tablet by mouth every other day CITALOPRAM HYDROBROMIDE [id number] Barrett Biswas MD clopidogrel 75 mg oral tablet (20 sources) P2Y12 Platelet Inhibitor Start: 09-22-2016 End: 10-27-2016 take 1 tablet by mouth once daily PLAVIX 75 MG TABS One tablet by mouth daily CLOPIDOGREL BISULFATE 42551513186 Barrtet Biswas MD estradiol 0.1 mg/ml vaginal cream [...] vaginal opening 2-3 nights per week ESTRADIOL [id number] Zo S José Miguel QUILLER OPERATOR Start: 02-09-2017 ESTRACE 0.1 MG /GM CREA 1gm per vagina 3 nights per week ESTRADIOL [id number] Zo S José Miguel QUILLER OPERATOR eye drops (13 sources) Start: 07-02-2020 End: [...] Two tablets by mouth daily HYDROXYCHLOROQUINE SULFATE [id number] Barrett Biswas MD Start: 03-01-2012 take 1 tablet by jodie th once daily hydroxychloroquine (PLAQUENIL) 200 mg ORAL tablet Take 200 mg by mouth once daily. 0 03/01/2012 Active metoprolol tartrate 25 mg oral tablet (20 sources) beta-Adrenergic Radha Start: 09-22-2016 End: 12-21-2016 take 1 tablet by mouth twice daily METOPROLOL TARTRATE 25 MG TABS One tablet by mouth twice daily METOPROLOL TARTRATE 24952513458 Linh Sanchez RN potassium chloride 20 meq extended release oral tablet (20 sources) Start: 09-23-2016 End: 01-20-2017 take 2 tablets by mouth once daily POTASSIUM CHLORIDE ER 20 MEQ CR-TABS Two tablets by mouth daily x 2 days. POTASSIUM CHLORIDE 52270107947 Barrett Biswas MD valACYclovir 1000 mg oral tablet (12 sources) Herpesvirus Nucleoside Analog DNA Polymerase Inhibitor, Herpes Simplex Virus Nucleoside Analog DNA Polymerase Inhibitor, Herpes Zoster Virus Nucleoside Analog DNA Polymerase Inhibitor Start: 01-20-2017 End: 02-09-2017 take 1 tablet by mouth once daily VALTREX 1 GM TABS One tablet by mouth daily VALACYCLOVIR HCL 18548518786 Lauren Camacho MD Start: 01-20-2017 take 1 tablet by jodie th once daily VALTREX 1 GM TABS One tablet by mouth daily VALACYCLOVIR HCL 71693124437 Lauren Camacho MD Problems Active Problems Problem [...] (20 sources) Cardiac pacemaker in situ; 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, [address] Albumin/Globulin [Mass ratio] 1.6 {ratio} Normal 0.9-2.4 [facility] Comment on above: Performed By: #### L 500.4050 ####[facility] [address] [place], [address] ALK PHOS 65 U/L Normal 35-104 [facility] Comment on above: Performed By: #### L 500.4050 ####[facility] [address] [place], [address] ALT [Catalytic activity/Vol] 23 U/L Normal <=34 [facility] Comment on above: Performed By: #### L 500.4050 ####[facility] [address] [place], [address] AST [Catalytic activity/Vol] 24 U/L Normal <=31 [facility] Comment on above: Performed By: #### L 500.4050 ####[facility] [address] [place], [address] Bilirubin [Mass/Vol] 0.27 mg/dL Normal 0.00-1.30 [facility] Comment on above: Performed By: #### L 500.4050 ####[facility] [address] [place], [address] BUN/CRE 26.4 RATIO High 10-20 [facility] Comment on above: Performed By: #### L 500.4050 ####[facility] [address] [place], [address] Calcium [Mass/Vol] 9.6 mg/dL Normal 7.6-11.0 [facility] Comment on above: Performed By: #### L 500.4050 ####[facility] [address] [place], [address] Chloride [Moles/Vol] 108 mmol/L Normal 98-108 [facility] Comment on above: Performed By: #### L 500.4050 ####[facility] [address] [place], [address] CO2 [Moles/Vol] 26.5 mmol/L Normal 21.0-32.0 [facility] Comment on above: Performed By: #### L 500.4050 ####[facility] [address] [place], [address] Creatinine [Mass/Vol] 0.81 mg/dL Normal 0.70-1.20 [place] Comment on above: Performed By: #### L 500.4050 ####[facility] [address] [place], [address] GAP 10 Normal 5-15 [facility] Comment on above: Performed By: #### L 500.4050 ####[facility] [address] [place], [address] GFR/1.73 sq M.predicted among non-blacks MDRD (S/P/Bld) [Vol rate/Area] 79 mL/min/{1.73_m2} Normal >60 [facility] Comment on above: Result Comment: mL/m in/1.73m2 CKD-EPI Creatinine Equation (2020) Performed By: #### L 500.4050 ####[facility] [address] [place], [address] Globulin (S) [Mass/Vol] 2.7 g/dL Normal 2.2-4.2 [facility] Comment on above: Performed By: #### L 500.4050 ####[facility] [address] [place], [address] Glucose [Mass/Vol] 103 mg/dL High 70-99 [facility] Comment on above: Performed By: #### L 500.4050 ####[facility] [address] [place], [address] Potassium [Moles/Vol] 3.9 mmol/L Normal 3.3-5.1 [place] Comment on above: Performed By: #### L 500.4050 ####[facility] [address] [place], [address] Sodium [Moles/Vol] 144 mmol/L Normal 133-145 [facility] Comment on above: Performed By: #### L 500.4050 ####[facility] [address] [place], [address] T PROT 6.8 g/dL Normal 5.9-8.4 [facility] Comment on above: Performed By: #### L 500.4050 ####[facility] [address] [place], [place], [address] Urea nitrogen [Mass/Vol] 21 mg/dL High 08-25 [facility] Comment on above: Performed By: #### L 500.4050 ####[facility] [address] [place], [place], [address] Liveron 08-22-2024 Liver [facility] Imaging Services [address] [place], [place] [address] Liver MR#: [id number] Acct: [id number] Name: GISEL SAWYER Rep #: [id number] : [id number] F [id number] From: Cheikh Mahajan MD PCP: Dr. Melba Young MD Status: REG CLI Study: Liver Date of Exam: 08/22/24 Exam# [id number] Ordering Dr: Stephanie Orta MD PROCEDURE: LIVER [...] 2. Additional description as above. Reading Location: [facility] CC: Dr. Melba Young MD; Dr. Stephanie Orta MD Drier: Signed Normal [facility] Absolute neutrophil countOrd ered By: Stephanie Orta on 07-31-2024 Neutrophils (Bld) [#/Vol] 3.7 10*3/uL 2.0-7.7 [facility] Anion gap in Serum or Plasma Ordered By: Stephanie Orta on 07-31-2024 Anion gap [Moles/Vol] 8 mmol/L 5-15 [place] BUN/creatinine ratioOrdered By: Stephanie You on 07-31-2024 Urea nitrogen/Creatinine [Mass ratio] 30.9 mg/mg High 10-20 [facility] Basophil percentageOrdered B y: Stephanie Orta on 07-31-2024 Basophils/100 WBC (Bld) 0.7 % 0-1 [facility] Bilirubin, totalOrdered By: Stephanie Orta on 07-31-2024 Bilirubin [Mass/Vol] 0.31 mg/dL 0.00-1.30 [facility] CBC W/Diff, Automatedon 07-08 Absolute Lymph 2.31 X10 3/uL Normal 0.83-4.51 [facility] Comment on above: Performed By: #### L 500.4050, L100.0100 ####[facility] [address] [place], [address] Absolute Neut 3.7 X10 3/uL Normal 2.0-7.7 [facility] Comment on above: Performed By: #### L 500.4050, L100.0100 ####[facility] [address] [place], [address] Basophils/100 WBC (Bld) 0.7 % Normal 0-1 [facility] Comment on above: Performed By: #### L 500.4050, L100.0100 ####[facility] [address] [place], [address] Eosinophils/100 WBC (Bld) 2.2 % Normal 0-5 [facility] Comment on above: Performed By: #### L 500.4050, L100.0100 ####[facility] [address] [place], [address] Erythrocyte distribution width (RBC) [Ratio] 14.4 % Normal 11.6-14.6 [facility] Comment on above: Performed By: #### L 500.4050, L100.0100 ####[facility] [address] [place], [address] Hematocrit (Bld) [Volume fraction] 40.9 % Normal 37-47 [facility] Comment on above: Performed By: #### L 500.4050, L100.0100 ####[facility] [address] [place], [address] Hemoglobin (Bld) [Mass/Vol] 13.4 g/dL Normal 12.0-15.0 [facility] Comment on above: Performed By: #### L 500.4050, L100.0100 ####[facility] [address] [place], [address] IG% 0.100 Normal 0.0-0.9 [facility] Comment on above: Result Comment: IG% - Immature Granulocytes (promyelocytes, myelocytes and metamyelocytes) > 1% indicates that a LEFT SHIFT is Present. Performed By: #### L 500.4050, L100.0100 ####[facility] [address] [place], [address] Lymphocytes/100 WBC (Bld) 33.2 % Normal 19-41 [facility] Comment on above: Performed By: #### L 500.4050, L100.0100 ####[facility] [address] [place], [address] MCH (RBC) [Entitic mass] 31.0 pg Normal 27.0-32.0 [facility] Comment on above: Performed By: #### L 500.4050, L100.0100 ####[facility] [address] [place], [address] MCHC (RBC) [Mass/Vol] 32.8 g/dL Normal 32-36 [place] Comment on above: Performed By: #### L 500.4050, L100.0100 ####[facility] [address] [place], [address] MCV (RBC) [Entitic vol] 94.7 fL Normal 81-99 [facility] Comment on above: Performed By: #### L 500.4050, L100.0100 ####[facility] [address] [place], [address] Monocytes/100 WBC (Bld) 10.1 % High 0-10 [facility] Comment on above: Performed By: #### L 500.4050, L100.0100 ####[facility] [address] [place], [address] Neutrophils/100 WBC (Bld) 53.7 % Normal 47-70 [facility] Comment on above: Performed By: #### L 500.4050, L100.0100 ####[facility] [address] [place], [address] Nucleated RBC (Bld) [#/Vol] 0 10*3/uL Normal 0-5 [facility] Comment on above: Performed By: #### L 500.4050, L100.0100 ####[facility] [address] [place], [address] Platelet mean volume (Bld) [Entitic vol] 11.2 fL Normal 6.2-12.0 [facility] Comment on above: Performed By: #### L 500.4050, L100.0100 ####[facility] [address] [place], [address] Platelets (Bld) [#/Vol] 188 10*3/uL Normal 150-450 [facility] Comment on above: Performed By: #### L 500.4050, L100.0100 ####[facility] [address] [place], [address] RBC (Bld) [#/Vol] 4.32 10*6/uL Normal 4.2-5.[address] [facility] Comment on above: Performed By: #### L 500.4050, L100.0100 ####[facility] [address] [place], [address] RDW SD 50.4 fl High 35.1-43.9 [facility] Comment on above: Performed By: #### L 500.4050, L100.0100 ####[facility] [address] [place], [address] WBC (Bld) [#/Vol] 7.0 10*3/uL Normal 4.4-11.0 [facility] Comment on above: Performed By: #### L 500.4050, L100.0100 ####[facility] [address] [place], [address] Carbon dioxide, total [Moles /volume] in Central venous bloodOrdered By: Stephanie Orta on 07-31-2024 CO2 [Moles/Vol] 26.2 mmol/L 21.0-32.0 [facility] Chloride assayOrdered By: Jimenez Orta on 07-31-2024 Chloride [Moles/Vol] 107 mmol/L 98-108 [facility] Comprehensive Metabolic Prof ilon 07-31-2024 Albumin [Mass/Vol] 4.2 g/dL Normal 3.4-4.8 [facility] Comment on above: Performed By: #### L 500.4050, L100.0100 ####[facility] [address] [place], [address] Albumin/Globulin [Mass ratio] 1.5 {ratio} Normal 0.9-2.4 [facility] Comment on above: Performed By: #### L 500.4050, L100.0100 ####[facility] [address] [place], [address] ALK PHOS 70 U/L Normal 35-104 [facility] Comment on above: Performed By: #### L 500.4050, L100.0100 ####[facility] [address] [place], [address] ALT [Catalytic activity/Vol] 46 U/L High <=34 [facility] Comment on above: Performed By: #### L 500.4050, L100.0100 ####[facility] [address] [place], [address] AST [Catalytic activity/Vol] 30 U/L Normal <=31 [facility] Comment on above: Performed By: #### L 500.4050, L100.0100 ####[facility] [address] [place], [address] Bilirubin [Mass/Vol] 0.31 mg/dL Normal 0.00-1.30 [facility] Comment on above: Performed By: #### L 500.4050, L100.0100 ####[facility] [address] [place], [address] BUN/CRE 30.9 RATIO High 10-20 [facility] Comment on above: Performed By: #### L 500.4050, L100.0100 ####[facility] [address] [place], [address] Calcium [Mass/Vol] 9.9 mg/dL Normal 7.6-11.0 [facility] Comment on above: Performed By: #### L 500.4050, L100.0100 ####[facility] [address] [place], [address] Chloride [Moles/Vol] 107 mmol/L Normal 98-108 [facility] Comment on above: Performed By: #### L 500.4050, L100.0100 ####[facility] [address] [place], [address] CO2 [Moles/Vol] 26.2 mmol/L Normal 21.0-32.0 [facility] Comment on above: Performed By: #### L 500.4050, L100.0100 ####[facility] [address] [place], [address] Creatinine [Mass/Vol] 0.74 mg/dL Normal 0.70-1.20 [facility] Comment on above: Performed By: #### L 500.4050, L100.0100 ####[facility] [address] [place], [address] GAP 8 Normal 5-15 [facility] Comment on above: Performed By: #### L 500.4050, L100.0100 ####[facility] [address] [place], [address] GFR/1.73 sq M.predicted among non-blacks MDRD (S/P/Bld) [Vol rate/Area] 88 mL/min/{1.73_m2} Normal >60 [facility] Comment on above: Result Comment: mL/m in/1.73m2 CKD-EPI Creatinine Equation (2020) Performed By: #### L 500.4050, L100.0100 ####[facility] [address] [place], [address] Globulin (S) [Mass/Vol] 2.8 g/dL Normal 2.2-4.2 [facility] Comment on above: Performed By: #### L 500.4050, L100.0100 ####[facility] [address] [place], [address] Glucose [Mass/Vol] 89 mg/dL Normal 70-99 [facility] Comment on above: Performed By: #### L 500.4050, L100.0100 ####[facility] [address] [place], [address] Potassium [Moles/Vol] 4.0 mmol/L Normal 3.3-5.1 [place] Comment on above: Performed By: #### L 500.4050, L100.0100 ####[facility] [address] [place], [address] Sodium [Moles/Vol] 141 mmol/L Normal 133-145 [facility] Comment on above: Performed By: #### L 500.4050, L100.0100 ####[facility] [address] [place], [address] T PROT 7.0 g/dL Normal 5.9-8.4 [facility] Comment on above: Performed By: #### L 500.4050, L100.0100 ####[facility] [address] [place], [address] Urea nitrogen [Mass/Vol] 23 mg/dL High 4-19 [facility] Comment on above: Performed By: #### L 500.4050, L100.0100 ####[facility] [address] [place], [address] Eosinophil percentageOrdered By: Stephanie Orta on 07-31-2024 Eosinophils/100 WBC (Bld) 2.2 % 0-5 [facility] Erythrocyte distribution wid th ratioOrdered By: Stephanie Orta on 07-31-2024 Erythrocyte distribution width (RBC) [Ratio] 14.4 % 11.6-14.6 [facility] Erythrocyte distribution wid th standard deviationOrdered By: Stephanie Orta on 07-31-2024 Erythrocyte distribution width (RBC) [Entitic vol] 50.4 fL High 35.1-43.9 [facility] GFR/1.73 sq M.predicted guy g non-blacks MDRD (S/P/Bld) [Vol rate/Area]Ordered By: Stephanie Orta on 07-31-2024 Estimated GFR (MDRD) Non-Af Amer 88 >60 [facility] Comment on above: mL/min/1.73m2 CKD-EP I Creatinine Equation (2020) Hematocrit Auto (Bld) [Volum e fraction]Ordered By: Stephanie Orta on 07-31-2024 Hematocrit (Bld) [Volume fraction] 40.9 % 37-47 [facility] Hemoglobin measurementOrdere d By: Stephanie Orta on 07-31-2024 Hemoglobin (Bld) [Mass/Vol] 13.4 g/dL 12.0-15.0 [facility] Immature granulocytes/100 WB C Auto (Bld)Ordered By: Stephanie Orta on 07-31-2024 Immature granulocytes/100 WBC (Bld) 0.100 % 0.0-0.9 [facility] Comment on above: IG% - Immature Granu locytes (promyelocytes, myelocytes and metamyelocytes) > 1% indicates that a LEFT SHIFT is Present. Laboratory - Chemistry and C hemistry - challengeOrdered By: Stephanie Orta on 07-31-2024 AST [Catalytic activity/Vol] 30 U/L <32 [facility] Lymphocytes Auto (Unsp spec) [#/Vol]Ordered By: Stephanie Orta on 07-31-2024 Lymphocytes (Bld) [#/Vol] 2.31 10*3/uL 0.83-4.51 [facility] Lymphocytes/100 WBC Auto (Un sp spec)Ordered By: Stephanie Orta on 07-31-2024 Lymphocytes/100 WBC (Bld) 33.2 % 19-41 [facility] MCV (mean corpuscular volume ) determinationOrdered By: Stephanie Orta on 07-31-2024 MCV (RBC) [Entitic vol] 94.7 fL 81-99 [facility] Mean corpuscular hemoglobin (MCH) determinationOrdered By: Stephanie Orta on 07-31-2024 MCH (RBC) [Entitic mass] 31.0 pg 27.0-32.0 [facility] Mean corpuscular hemoglobin concentration (MCHC) determinationOrdered By: Stephanie Orta on 07-31-2024 MCHC (RBC) [Mass/Vol] 32.8 g/dL 32-36 [place] Mean platelet volume determi nationOrdered By: Stephanie Orta on 07-31-2024 Platelet mean volume (Bld) [Entitic vol] 11.2 fL 6.2-12.0 [facility] Monocyte percentageOrdered B y: Stephanie Orta on 07-31-2024 Monocytes/100 WBC (Bld) 10.1 % High 0-10 [facility] Neutrophil percentageOrdered By: Stephanie Orta on 07-31-2024 Neutrophils/100 WBC (Bld) 53.7 % 47-70 [facility] Nucleated red blood cell per centageOrdered By: Stephanie Orta on 07-31-2024 Nucleated RBC/100 WBC (Bld) [Ratio] 0 % 0-5 [facility] Platelet countOrdered By: Jimenez Orta on 07-31-2024 Platelets (Bld) [#/Vol] 188 10*3/uL 150-450 [facility] Potassium (Unsp spec) [Mass/ Vol]Ordered By: Stephanie Orta on 07-31-2024 Potassium [Moles/Vol] 4.0 mmol/L 3.3-5.1 [place] RBC Auto (Bld) [#/Vol]Ordere d By: Stephanie Orta on 07-31-2024 RBC (Bld) [#/Vol] 4.32 10*6/uL 4.2-5.[address] [facility] Serum creatinine measurement (mass/volume)Ordered By: Stephanie Orta on 07-31-2024 Creatinine [Mass/Vol] 0.74 mg/dL 0.70-1.20 [place] Serum globulin measurementOr dered By: Stephanie Orta on 07-31-2024 Globulin (S) [Mass/Vol] 2.8 g/dL 2.2-4.2 [facility] Serum glucose measurement (m ass/volume)Ordered By: Stephanie Orta on 07-31-2024 Glucose [Mass/Vol] 89 mg/dL 70-99 [facility] Serum or plasma alanine bradford otransferase (ALT) measurementOrdered By: Stephanie Orta on 07-31-2024 ALT [Catalytic activity/Vol] 46 U/L High <35 [facility] Serum or plasma albumin blessing urement (mass/volume)Ordered By: Stephanie Orta on 07-31-2024 Albumin [Mass/Vol] 4.2 g/dL 3.4-4.8 [facility] Serum or plasma albumin/glob ulin mass ratioOrdered By: Stephanie Orta on 07-31-2024 Albumin/Globulin [Mass ratio] 1.5 {ratio} 0.9-2.4 [facility] Serum or plasma alkaline mario sphatase measurementOrdered By: Stephanie Orta on 07-31-2024 ALP [Catalytic activity/Vol] 70 U/L 35-104 [facility] Serum or plasma calcium blessing urement (mass/volume)Ordered By: Stephanie Orta on 07-31-2024 Calcium [Mass/Vol] 9.9 mg/dL 7.6-11.0 [facility] Serum or plasma urea nitroge n measurement (mass/volume)Ordered By: Stephanie Orta on 07-31-2024 Urea nitrogen [Mass/Vol] 23 mg/dL High 4-19 [facility] Sodium levelOrdered By: Jennifer Orta on 07-31-2024 Sodium [Moles/Vol] 141 mmol/L 133-145 [facility] Total proteinOrdered By: Maria Del Rosario Orta on 07-31-2024 Protein [Mass/Vol] 7.0 g/dL 5.9-8.4 [facility] White blood cell (WBC) count Ordered By: Stephanie Orta on 07-31-2024 WBC (Bld) [#/Vol] 7.0 10*3/uL 4.4-11.0 [facility] Bacteria Ur Culton Bacteria identified Cx [...] , Intermediate >32 , Resistant >64 Abnormal [facility] Comment on above: Performed By: #### 6 30-4 #### [facility] CLIA [id number] [address] [place] [address] [place] OF [place] 06-27-2024 CNOV Office Visit (UCWSTR) ---- GISEL SAWYER ([id number]) 1955 F Date Time Provider Department 06/27/24 4:45 PM BHUPENDRA FIGUEROA [facility] During your visit today, we recorded the following information about you: Temperature Pulse Respiration Blood pressure 97.6 degrees 70/minute 18/minute 138/82 Weight 55.5 kg Bhupendra Figueroa, JIMENEZ 06/27/2024 4:40 PM Signed This note was created using Base Forty[employer]. Subjective Gisel Sawyer is a 69 year old female. HPI 69-year-old female presents for UTI symptoms. Patient has had symptoms on and off for about a week. She has urgency, frequency, bladder pressure. She denies any blood in the urine, back pain, abdominal pain, fevers or vomiting. She has had a UTI in the past and this feels similar. She did take care, ksrl-utk-gkvidhw a few days ago which did help [...] 2. B (more content not included)... Normal [facility] UA DIP, URINE (POC)on 2024 BILIRUBIN UA (POCT) Negative Negative [facility] CLARITY UA (POCT) Cloudy [facility] COLOR UA (POCT) Yellow [facility] GLUCOSE UA (POCT) Negative Negative mg/dL [facility] Hemoglobin Ql (U) Trace-intact Abnormal Negative [facility] Interpretation and review of laboratory results Abnormal [facility] KETONE UA (POCT) Trace Negative mg/dL [facility] LEUKOCYTES UA (POCT) Small Abnormal Negative [facility] NITRITE UA (POCT) Positive Abnormal Negative [facility] PH UA (POCT) 5.5 4.5 - 8.0 [facility] Protein Ql (U) Negative Negative mg/dL [facility] SPECIFIC GRAVITY UA (POCT) >=1.030 1.005 - 1.030 [facility] UROBILINOGEN UA (POCT) 0.2 Nicole l E.U./dL [facility] Location:[address], [place], [place], [address] [place] [address] POINT OF CARE [facility] Absolute neutrophil countOrd ered By: Stephanie Orta on 05-07-2024 Neutrophils (Bld) [#/Vol] 4.2 10*3/uL 2.0-7.7 [facility] Albumin to globulin ratioOrd ered By: Stephanie Orta on 05-07-2024 Albumin/Globulin [Mass ratio] 1.1 {ratio} 0.9-2.4 [facility] Basophil percentageOrdered B y: Stephanie Orta on 05-07-2024 Basophils/100 WBC (Bld) 0.7 % 0-1 [facility] Bilirubin, totalOrdered By: Stephanie Orta on 05-07-2024 Bilirubin [Mass/Vol] 0.30 mg/dL 0.20-1.00 [facility] Comment on above: For patients on eltr ombopag therapy, use of Dimension [place] TBIL is not recommended. Blood urea nitrogen (BUN)/cr eatinine ratioOrdered By: Stephanie Orta on 05-07-2024 Urea nitrogen/Creatinine [Mass ratio] 21.8 mg/mg High - [facility] CBC W/Diff, Automatedon 04-10 Absolute Lymph 2.05 X10 3/uL Normal 0.83-4.51 [facility] Comment on above: Performed By: #### L 100.0100, L500.4050 ####[facility] [address] [place], [address] Absolute Neut 4.2 X10 3/uL Normal 2.0-7.7 [facility] Comment on above: Performed By: #### L 100.0100, L500.4050 ####[facility] [address] [place], [address] Basophils/100 WBC (Bld) 0.7 % Normal 0-1 [facility] Comment on above: Performed By: #### L 100.0100, L500.4050 ####[facility] [address] [place], [address] Eosinophils/100 WBC (Bld) 1.4 % Normal 0-5 [facility] Comment on above: Performed By: #### L 100.0100, L500.4050 ####[facility] [address] [place], [address] Erythrocyte distribution width (RBC) [Ratio] 13.6 % Normal 11.6-14.6 [facility] Comment on above: Performed By: #### L 100.0100, L500.4050 ####[facility] [address] [place], [address] Hematocrit (Bld) [Volume fraction] 38.5 % Normal 37-47 [facility] Comment on above: Performed By: #### L 100.0100, L500.4050 ####[facility] [address] [place], [address] Hemoglobin (Bld) [Mass/Vol] 12.6 g/dL Normal 12.0-15.0 [facility] Comment on above: Performed By: #### L 100.0100, L500.4050 ####[facility] [address] [place], [address] IG% 0.300 Normal 0.0-0.9 [facility] Comment on above: Result Comment: IG% - Immature Granulocytes (promyelocytes, myelocytes and metamyelocytes) > 1% indicates that a LEFT SHIFT is Present. Performed By: #### L 100.0100, L500.4050 ####[facility] [address] [place], [address] Lymphocytes/100 WBC (Bld) 29.5 % Normal 19-41 [facility] Comment on above: Performed By: #### L 100.0100, L500.4050 ####[facility] [address] [place], [address] MCH (RBC) [Entitic mass] 30.7 pg Normal 27.0-32.0 [facility] Comment on above: Performed By: #### L 100.0100, L500.4050 ####[facility] [address] [place], [address] MCHC (RBC) [Mass/Vol] 32.7 g/dL Normal 32-36 [facility] Comment on above: Performed By: #### L 100.0100, L500.4050 ####[facility] [address] [place], [address] MCV (RBC) [Entitic vol] 93.9 fL Normal 81-99 [facility] Comment on above: Performed By: #### L 100.0100, L500.4050 ####[facility] [address] [place], [address] Monocytes/100 WBC (Bld) 7.1 % Normal 0-10 [facility] Comment on above: Performed By: #### L 100.0100, L500.4050 ####[facility] [address] [place], [address] Neutrophils/100 WBC (Bld) 61.0 % Normal 47-70 [facility] Comment on above: Performed By: #### L 100.0100, L500.4050 ####[facility] [address] [place], [address] Nucleated RBC (Bld) [#/Vol] 0 10*3/uL Normal 0-5 [facility] Comment on above: Performed By: #### L 100.0100, L500.4050 ####[facility] [address] [place], [address] Platelet mean volume (Bld) [Entitic vol] 10.6 fL Normal 6.2-12.0 [facility] Comment on above: Performed By: #### L 100.0100, L500.4050 ####[facility] [address] [place], [address] Platelets (Bld) [#/Vol] 162 10*3/uL Normal 150-450 [facility] Comment on above: Performed By: #### L 100.0100, L500.4050 ####[facility] [address] [place], [address] RBC (Bld) [#/Vol] 4.10 10*6/uL Low 4.2-5.[address] [facility] Comment on above: Performed By: #### L 100.0100, L500.4050 ####[facility] [address] [place], [address] RDW SD 46.2 fl High 35.1-43.9 [facility] Comment on above: Performed By: #### L 100.0100, L500.4050 ####[facility] [address] [place], [address] WBC (Bld) [#/Vol] 7.0 10*3/uL Normal 4.4-11.0 [facility] Comment on above: Performed By: #### L 100.0100, L500.4050 ####[facility] [address] [place], [address] Carbon dioxide measurementOr dered By: Stephanie Orta on 05-07-2024 CO2 [Moles/Vol] 29.0 mmol/L 21.0-32.0 [facility] Chloride measurementOrdered By: Stephaniemichelle Orta on 05-07-2024 Chloride [Moles/Vol] 106 mmol/L 98-107 [facility] Comprehensive Metabolic Prof ilon 05-07-2024 Albumin [Mass/Vol] 3.7 g/dL Normal 3.2-5.0 [facility] Comment on above: Performed By: #### L 100.0100, L500.4050 ####[facility] [address] [place], [address] Albumin/Globulin [Mass ratio] 1.1 {ratio} Normal 0.9-2.4 [facility] Comment on above: Performed By: #### L 100.0100, L500.4050 ####[facility] [address] [place], [address] ALK P 60 U/L Normal 45-117 [facility] Comment on above: Performed By: #### L 100.0100, L500.4050 ####[facility] [address] [place], [address] ALT [Catalytic activity/Vol] 27 U/L Normal 13-56 [facility] Comment on above: Performed By: #### L 100.0100, L500.4050 ####[facility] [address] [place], [address] AST [Catalytic activity/Vol] 18 U/L Normal 15-37 [facility] Comment on above: Performed By: #### L 100.0100, L500.4050 ####[facility] [address] [place], [address] Bilirubin [Mass/Vol] 0.30 mg/dL Normal 0.20-1.00 [facility] Comment on above: Result Comment: For patients on eltrombopag therapy, use of Dimension [place] TBIL is not recommended. Performed By: #### L 100.0100, L500.4050 ####[facility] [address] [place], [address] BUN/CRE 21.8 RATIO High 10-20 [facility] Comment on above: Performed By: #### L 100.0100, L500.4050 ####[facility] [address] [place], [address] CA,Total 9.4 mg/dL Normal 8.5-10.1 [facility] Comment on above: Performed By: #### L 100.0100, L500.4050 ####[facility] [address] [place], [address] Chloride [Moles/Vol] 106 mmol/L Normal 98-107 [facility] Comment on above: Performed By: #### L 100.0100, L500.4050 ####[facility] [address] [place], [address] CO2 [Moles/Vol] 29.0 mmol/L Normal 21.0-32.0 [facility] Comment on above: Performed By: #### L 100.0100, L500.4050 ####[facility] [address] [place], [address] Creatinine [Mass/Vol] 0.83 mg/dL Normal 0.55-1.02 [facility] Comment on above: Result Comment: The validity of the calculated GFR GFRAA in patients over 70 years has not been determined. Clinical correlation is essential. Performed By: #### L 100.0100, L500.4050 ####[facility] [address] [place], [address] EST GFR - AA 88 mL/min Normal >60 [facility] Comment on above: Result Comment: Afri can Niuean GFR Calc Performed By: #### L 100.0100, L500.4050 ####[facility] [address] [place], [address] GAP 5 Normal 5-15 [facility] Comment on above: Performed By: #### L 100.0100, L500.4050 ####[facility] [address] [place], [address] GFR/1.73 sq M.predicted among non-blacks MDRD (S/P/Bld) [Vol rate/Area] 73 mL/min/{1.73_m2} Normal >60 [facility] Comment on above: Result Comment: Non- GFR Calc Performed By: #### L 100.0100, L500.4050 ####[facility] [address] [place], [address] Globulin (S) [Mass/Vol] 3.4 g/dL Normal 2.2-4.2 [facility] Comment on above: Performed By: #### L 100.0100, L500.4050 ####[facility] [address] [place], [address] Glucose [Mass/Vol] 155 mg/dL High 74-106 [facility] Comment on above: Result Comment: Fast ing Glucose result greater than or equal to 126 mg/dL suggests DIABETES MELLITUS per A.D.A. criteria. Performed By: #### L 100.0100, L500.4050 ####[facility] [address] [place], [address] Potassium [Moles/Vol] 3.6 mmol/L Normal 3.5-5.1 [facility] Comment on above: Performed By: #### L 100.0100, L500.4050 ####[facility] [address] [place], [address] Sodium [Moles/Vol] 140 mmol/L Normal 136-145 [facility] Comment on above: Performed By: #### L 100.0100, L500.4050 ####[facility] [address] [place], [address] T PROT 7.1 g/dL Normal 6.4-8.2 [facility] Comment on above: Performed By: #### L 100.0100, L500.4050 ####[facility] [address] [place], [address] Urea nitrogen [Mass/Vol] 18 mg/dL Normal 7-18 [facility] Comment on above: Performed By: #### L 100.0100, L500.4050 ####[facility] [address] [place], [address] Eosinophil percentageOrdered By: Stephanie Orta on 05-07-2024 Eosinophils/100 WBC (Bld) 1.4 % 0-5 [facility] Erythrocyte distribution wid th ratioOrdered By: Stephanie Orta on 05-07-2024 Erythrocyte distribution width (RBC) [Ratio] 13.6 % 11.6-14.6 [facility] Erythrocyte distribution wid th standard deviationOrdered By: Stephanie Orta on 05-07-2024 Erythrocyte distribution width (RBC) [Entitic vol] 46.2 fL High 35.1-43.9 [facility] Estimated glomerular filtrat ion rate (GFR) AmericanOrdered By: Stephanie Orta on 05-07-2024 Estimated GFR (MDRD) Amer 88 mL/min >60 [facility] Comment on above: GFR Calc Glomerular filtration rate ( GFR) estimationOrdered By: Stephanie Orta on 05-07-2024 Estimated GFR (MDRD) Non-Af Amer 73 mL/min >60 [facility] Comment on above: Non- GFR Calc Glucose measurementOrdered B y: Stephanie Orta on 05-07-2024 Glucose [Mass/Vol] 155 mg/dL High 74-106 [facility] Comment on above: Fasting Glucose resu lt greater than or equal to 126 mg/dL suggests DIABETES MELLITUS per A.D.A. criteria. Hematocrit Auto (Bld) [Volum e fraction]Ordered By: Stephanie Orta on 05-07-2024 Hematocrit (Bld) [Volume fraction] 38.5 % 37-47 [facility] Hemoglobin measurementOrdere d By: Stephanie Orta on 05-07-2024 Hemoglobin (Bld) [Mass/Vol] 12.6 g/dL 12.0-15.0 [facility] Immature granulocytes/100 WB C Auto (Bld)Ordered By: Stephanie Orta on 05-07-2024 Immature granulocytes/100 WBC (Bld) 0.300 % 0.0-0.9 [facility] Comment on above: IG% - Immature Granu locytes (promyelocytes, myelocytes and metamyelocytes) > 1% indicates that a LEFT SHIFT is Present. Laboratory - Chemistry and C hemistry - challengeOrdered By: Stephanie Orta on 05-07-2024 AST [Catalytic activity/Vol] 18 U/L 15-37 [facility] Lymphocytes Auto (Unsp spec) [#/Vol]Ordered By: Stephanie Orta on 05-07-2024 Lymphocytes (Bld) [#/Vol] 2.05 10*3/uL 0.83-4.51 [facility] Lymphocytes/100 WBC Auto (Un sp spec)Ordered By: Stephanie Orta on 05-07-2024 Lymphocytes/100 WBC (Bld) 29.5 % 19-41 [facility] MCV (mean corpuscular volume ) determinationOrdered By: Stephanie Orta on 05-07-2024 MCV (RBC) [Entitic vol] 93.9 fL 81-99 [facility] Mean corpuscular hemoglobin (MCH) determinationOrdered By: Stephanie Orta on 05-07-2024 MCH (RBC) [Entitic mass] 30.7 pg 27.0-32.0 [facility] Mean corpuscular hemoglobin concentration (MCHC) determinationOrdered By: Stephanie Orta on 05-07-2024 MCHC (RBC) [Mass/Vol] 32.7 g/dL 32-36 [facility] Mean platelet volume determi nationOrdered By: Stephanie Orta on 05-07-2024 Platelet mean volume (Bld) [Entitic vol] 10.6 fL 6.2-12.0 [facility] Monocyte percentageOrdered B y: Stephanie Orta on 05-07-2024 Monocytes/100 WBC (Bld) 7.1 % 0-10 [facility] Neutrophil percentageOrdered By: Stephanie Orta on 05-07-2024 Neutrophils/100 WBC (Bld) 61.0 % 47-70 [facility] Nucleated red blood cell per centageOrdered By: Stephanie Orta on 05-07-2024 Nucleated RBC/100 WBC (Bld) [Ratio] 0 % 0-5 [facility] Platelet countOrdered By: Jimenez Orta on 05-07-2024 Platelets (Bld) [#/Vol] 162 10*3/uL 150-450 [facility] Potassium measurementOrdered By: Stephanie Orta on 05-07-2024 Potassium [Moles/Vol] 3.6 mmol/L 3.5-5.1 [facility] RBC Auto (Bld) [#/Vol]Ordere d By: Stephanie Orta on 05-07-2024 RBC (Bld) [#/Vol] 4.10 10*6/uL Low 4.2-5.[address] [facility] Serum anion gap measurementO rdered By: Stephanie Orta on 05-07-2024 Anion gap [Moles/Vol] 5 mmol/L 5-15 [facility] Serum globulin measurementOr dered By: Stephanie Orta on 05-07-2024 Globulin (S) [Mass/Vol] 3.4 g/dL 2.2-4.2 [facility] Serum or plasma alanine bradford otransferase (ALT) measurementOrdered By: Stephanie Orta on 05-07-2024 ALT [Catalytic activity/Vol] 27 U/L 13-56 [facility] Serum or plasma albumin blessing urement (mass/volume)Ordered By: Stephanie Orta on 05-07-2024 Albumin [Mass/Vol] 3.7 g/dL 3.2-5.0 [facility] Serum or plasma alkaline mario sphatase measurementOrdered By: Stephanie Orta on 05-07-2024 ALP [Catalytic activity/Vol] 60 U/L 45-117 [facility] Serum or plasma calcium blessing urement (mass/volume)Ordered By: Stephanie Orta on 05-07-2024 Calcium [Mass/Vol] 9.4 mg/dL 8.5-10.1 [facility] Serum or plasma creatinine m easurement (mass/volume)Ordered By: Stephanie Orta on 05-07-2024 Creatinine [Mass/Vol] 0.83 mg/dL 0.55-1.02 [facility] Comment on above: The validity of the calculated GFR & GFRAA in patients over 70 years has not been determined. Clinical correlation is essential. Serum or plasma urea nitroge n measurement (mass/volume)Ordered By: Stephanie Orta on 05-07-2024 Urea nitrogen [Mass/Vol] 18 mg/dL 7-18 [facility] Sodium levelOrdered By: Jennifer Orta on 05-07-2024 Sodium [Moles/Vol] 140 mmol/L 136-145 [facility] Total proteinOrdered By: Maria Del Rosario Orta on 05-07-2024 Protein [Mass/Vol] 7.1 g/dL 6.4-8.2 [facility] White blood cell (WBC) count Ordered By: Stephanie Orta on 05-07-2024 WBC (Bld) [#/Vol] 7.0 10*3/uL 4.4-11.0 [facility] Internal Medicine Office Vis iton 04-23-2024 Internal Medicine Office Visit [facility] [address] [place] [address] [place] [address] OFFICE VISIT Date of Service: 04/23/24 MR#: [id number] Acct: [id number] Name: GISEL SAWYER Rep #: [id number] : 1955 Provider: Dr. 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 Normal [facility] Bacteria Ur Culton 4 Bacteria identified Cx [...] , Intermediate >32 , Resistant >64 Abnormal [facility] Comment on above: Performed By: #### 6 30-4 #### [facility] CLIA [id number] [address] [place] [address] STATES OF [facility] CNOVon 03-15-2024 CNOV Office Visit (UCWSTR) ---- GISEL SAWYER ([id number]) 1955 F Date Time Provider Department 03/15/24 8:45 AM INES ARCOS WSTR During your visit today, we recorded the following information about you: Temperature Pulse Respiration Blood pressure 97.6 degrees 82/minute 20/minute 150/84 Weight 57.6 kg Ines Arcos PA-C 03/15/2024 9:22 AM Signed This note was created using [employer]. Subjective Gisel Sawyer is a 68 year old female. HPI Patient presents with a chief complaint of urinary frequency, dysuria over the past 3 days. She tried some xrqc-onf-awnaour urinary medication which did not seem to [...] with Ma (more content not included)... Normal [facility] UA DIP, URINE (POC)on 2023 BILIRUBIN UA (POCT) Negative Negative [facility] CLARITY UA (POCT) Cloudy [facility] COLOR UA (POCT) Yellow [facility] GLUCOSE UA (POCT) Negative Negative mg/dL [facility] Hemoglobin Ql (U) Small Abnormal Negative [facility] Interpretation and review of laboratory results Abnormal [facility] KETONE UA (POCT) Trace Negative mg/dL [facility] LEUKOCYTES UA (POCT) Moderate Abnormal [facility]) Negative [facility] PH UA (POCT) 5.5 4.5 - 8.0 [facility] Protein Ql (U) Trace Abnormal Negative mg/dL [facility] SPECIFIC GRAVITY UA (POCT) >=1.030 1.005 - 1.030 [facility] UROBILINOGEN UA (POCT) 0.2 Nicole l E.U./dL [facility] Location:[address], [place], [place], [address] [place] [address] POINT OF CARE [facility] Office Visit Reporton 2023 Office Visit Report [facility] [address] [place] [address] OFFICE VISIT Date of Service: 03/13/24 MR#: [id number] Acct: [id number] Patient: GISEL SAWYER Rep #: [id number] : 1955 Provider: JETT NURSE Age/Sex: 68/F Location: [facility] Status: Signed Intake Vital Signs 01/13/24 10:08 Height 5 ft 7 in Intake Visit Reasons: FLU SHOT Chief Complaint: Follow-up chronic conditions Allergies No Known Allergies Allergy (Verified 01/13/24 10:06) Have you fallen in the past year?: No Immunizations Fluad Triv (65y up)(PF) 45 mcg (15 mcg x 3)/0.5 mL IM syringe Performing Provider: Melba Young MD Performing Location: [facility] Administered by: Goldie Zavala on 03/13/24 13:17 Dose Route Admin Location Dispensed Lot Number Expiration Date [facility] Man ufacturer 45 mcg IM Left Deltoid 0.5 mL [id number] 09/07/24 75505-951-69 [employer] VIS Given Date VIS Provided VIS [...] Villalpando Signature: Date (if applicable) CC: Normal [facility] CBC W/Diff, Automatedon 09-3 0-2023 Absolute Lymph 2.41 X10 3/uL Normal 0.83-4.51 [facility] Comment on above: Order Comment: DR. Aalyna SWARTZ GETS LIPID AND VITD DR. ORTA GETS CBCD CMP Performed By: #### L 100.0100, L500.4050, L506.1000, L500.4100 #### [facility] [address] [place], [address] Absolute Neut 4.2 X10 3/uL Normal 2.0-7.7 [facility] Comment on above: Order Comment: DR. Alayna SWARTZ GETS LIPID AND VITD DR. ORTA GETS CBCD CMP Performed By: #### L 100.0100, L500.4050, L506.1000, L500.4100 #### [facility] [address] [place], [address] Basophils/100 WBC (Bld) 0.8 % Normal 0-1 [facility] Comment on above: Order Comment: DR. Alayna SWARTZ GETS LIPID AND VITD DR. ORTA GETS CBCD CMP Performed By: #### L 100.0100, L500.4050, L506.1000, L500.4100 #### [facility] [address] [place], [address] Eosinophils/100 WBC (Bld) 0.7 % Normal 0-5 [facility] Comment on above: Order Comment: DR. Alayna SWARTZ GETS LIPID AND VITD DR. ORTA GETS CBCD CMP Performed By: #### L 100.0100, L500.4050, L506.1000, L500.4100 #### [facility] [address] [place], [address] Erythrocyte distribution width (RBC) [Ratio] 13.4 % Normal 11.6-14.6 [facility] Comment on above: Order Comment: DR. Alayna SWARTZ GETS LIPID AND VITD DR. ORTA GETS CBCD CMP Performed By: #### L 100.0100, L500.4050, L506.1000, L500.4100 #### [facility] [address] [place], [address] Hematocrit (Bld) [Volume fraction] 41.1 % Normal 37-47 [facility] Comment on above: Order Comment: DR. Alayna SWARTZ GETS LIPID AND VITD DR. ORTA GETS CBCD CMP Performed By: #### L 100.0100, L500.4050, L506.1000, L500.4100 #### [facility] [address] [place], [address] Hemoglobin (Bld) [Mass/Vol] 13.2 g/dL Normal 12.0-15.0 [facility] Comment on above: Order Comment: DR. Alayna SWARTZ GETS LIPID AND VITD DR. ORTA GETS CBCD CMP Performed By: #### L 100.0100, L500.4050, L506.1000, L500.4100 #### [facility] [address] [place], [address] IG% 0.300 Normal 0.0-0.9 [facility] Comment on above: Order Comment: DR. Alayna SWARTZ GETS LIPID AND VITD DR. ORTA GETS CBCD CMP Result Comment: IG% - Immature Granulocytes (promyelocytes, myelocytes and metamyelocytes) > 1% indicates that a LEFT SHIFT is Present. Performed By: #### L 100.0100, L500.4050, L506.1000, L500.4100 #### [facility] [address] [place] [place], [address] Lymphocytes/100 WBC (Bld) 32.6 % Normal 19-41 [facility] Comment on above: Order Comment: DR. Alayna SWARTZ GETS LIPID AND VITD DR. ORTA GETS CBCD CMP Performed By: #### L 100.0100, L500.4050, L506.1000, L500.4100 #### [facility] [address] [place], [address] MCH (RBC) [Entitic mass] 30.1 pg Normal 27.0-32.0 [facility] Comment on above: Order Comment: DR. Alayna SWARTZ GETS LIPID AND VITD DR. ORTA GETS CBCD CMP Performed By: #### L 100.0100, L500.4050, L506.1000, L500.4100 #### [facility] [address] [place], [address] MCHC (RBC) [Mass/Vol] 32.1 g/dL Normal 32-36 [place] Comment on above: Order Comment: DR. Alayna SWARTZ GETS LIPID AND VITD DR. ORTA GETS CBCD CMP Performed By: #### L 100.0100, L500.4050, L506.1000, L500.4100 #### [facility] [address] [place], [address] MCV (RBC) [Entitic vol] 93.8 fL Normal 81-99 [facility] Comment on above: Order Comment: DR. Alayna SWARTZ GETS LIPID AND VITD DR. ORTA GETS CBCD CMP Performed By: #### L 100.0100, L500.4050, L506.1000, L500.4100 #### [facility] [address] [place], [address] Monocytes/100 WBC (Bld) 9.1 % Normal 0-10 [facility] Comment on above: Order Comment: DR. Alayna SWARTZ GETS LIPID AND VITD DR. ORTA GETS CBCD CMP Performed By: #### L 100.0100, L500.4050, L506.1000, L500.4100 #### [facility] [address] [place], [address] Neutrophils/100 WBC (Bld) 56.5 % Normal 47-70 [facility] Comment on above: Order Comment: DR. Alayna SWARTZ GETS LIPID AND VITD DR. ORTA GETS CBCD CMP Performed By: #### L 100.0100, L500.4050, L506.1000, L500.4100 #### [facility] [address] [place], [address] Nucleated RBC (Bld) [#/Vol] 0 10*3/uL Normal 0-5 [facility] Comment on above: Order Comment: DR. Alayna SWARTZ GETS LIPID AND VITD DR. ORTA GETS CBCD CMP Performed By: #### L 100.0100, L500.4050, L506.1000, L500.4100 #### [facility] [address] [place], [address] Platelet mean volume (Bld) [Entitic vol] 11.4 fL Normal 6.2-12.0 [facility] Comment on above: Order Comment: DR. Alayna SWARTZ GETS LIPID AND VITD DR. ORTA GETS CBCD CMP Performed By: #### L 100.0100, L500.4050, L506.1000, L500.4100 #### [facility] [address] [place] [place], [address] Platelets (Bld) [#/Vol] 151 10*3/uL Normal 150-450 [facility] Comment on above: Order Comment: DR. Alayna SWARTZ GETS LIPID AND VITD DR. ORTA GETS CBCD CMP Performed By: #### L 100.0100, L500.4050, L506.1000, L500.4100 #### [facility] [address] [place], [address] RBC (Bld) [#/Vol] 4.38 10*6/uL Normal 4.2-5.[address] [facility] Comment on above: Order Comment: DR. Alayna SWARTZ GETS LIPID AND VITD DR. ORTA GETS CBCD CMP Performed By: #### L 100.0100, L500.4050, L506.1000, L500.4100 #### [facility] [address] [place], [address] RDW SD 45.9 fl High 35.1-43.9 [facility] Comment on above: Order Comment: DR. Alayna SWARTZ GETS LIPID AND VITD DR. ORTA GETS CBCD CMP Performed By: #### L 100.0100, L500.4050, L506.1000, L500.4100 #### [facility] [address] [place], [address] WBC (Bld) [#/Vol] 7.4 10*3/uL Normal 4.4-11.0 [facility] Comment on above: Order Comment: DR. Alayna SWARTZ GETS LIPID AND VITD DR. ORTA GETS CBCD CMP Performed By: #### L 100.0100, L500.4050, L506.1000, L500.4100 #### [facility] [address] [place], [address] Comprehensive Metabolic Prof [facility] 02-06-2024 Albumin [Mass/Vol] 3.9 g/dL Normal 3.2-5.0 [facility] Comment on above: Order Comment: DR. Alayna SWARTZ GETS LIPID AND VITD DR. ORTA GETS CBCD CMP Performed By: #### L 100.0100, L500.4050, L506.1000, L500.4100 #### [facility] [address] [place], [address] Albumin/Globulin [Mass ratio] 1.1 {ratio} Normal 0.9-2.4 [facility] Comment on above: Order Comment: DR. Alayna SWARTZ GETS LIPID AND VITD DR. ORTA GETS CBCD CMP Performed By: #### L 100.0100, L500.4050, L506.1000, L500.4100 #### [facility] [address] [place], [address] ALK P 55 U/L Normal 45-117 [facility] Comment on above: Order Comment: DR. Alayna SWARTZ GETS LIPID AND VITD DR. ORTA GETS CBCD CMP Performed By: #### L 100.0100, L500.4050, L506.1000, L500.4100 #### [facility] [address] [place], [address] ALT [Catalytic activity/Vol] 21 U/L Normal 13-56 [facility] Comment on above: Order Comment: DR. Alayna SWARTZ GETS LIPID AND VITD DR. ORTA GETS CBCD CMP Performed By: #### L 100.0100, L500.4050, L506.1000, L500.4100 #### [facility] [address] [place], [address] AST [Catalytic activity/Vol] 18 U/L Normal 15-37 [facility] Comment on above: Order Comment: DR. Alayna SWARTZ GETS LIPID AND VITD DR. ORTA GETS CBCD CMP Performed By: #### L 100.0100, L500.4050, L506.1000, L500.4100 #### [facility] [address] [place], [address] Bilirubin [Mass/Vol] 0.40 mg/dL Normal 0.20-1.00 [facility] Comment on above: Order Comment: DR. Alayna SWARTZ GETS LIPID AND VITD DR. ORTA GETS CBCD CMP Result Comment: For patients on eltrombopag therapy, use of Dimension [place] TBIL is not recommended. Performed By: #### L 100.0100, L500.4050, L506.1000, L500.4100 #### [facility] [address] [place], [address] BUN/CRE 20.4 RATIO High 10-20 [facility] Comment on above: Order Comment: DR. Alayna SWARTZ GETS LIPID AND VITD DR. ORTA GETS CBCD CMP Performed By: #### L 100.0100, L500.4050, L506.1000, L500.4100 #### [facility] [address] [place], [address] CA,Total 9.8 mg/dL Normal 8.5-10.1 [facility] Comment on above: Order Comment: DR. Alayna SWARTZ GETS LIPID AND VITD DR. ORTA GETS CBCD CMP Performed By: #### L 100.0100, L500.4050, L506.1000, L500.4100 #### [facility] [address] [place], [address] Chloride [Moles/Vol] 107 mmol/L Normal 98-107 [facility] Comment on above: Order Comment: DR. Alayna SWARTZ GETS LIPID AND VITD DR. ORTA GETS CBCD CMP Performed By: #### L 100.0100, L500.4050, L506.1000, L500.4100 #### [facility] [address] [place], [address] CO2 [Moles/Vol] 28.0 mmol/L Normal 21.0-32.0 [facility] Comment on above: Order Comment: DR. Alayna SWARTZ GETS LIPID AND VITD DR. ORTA GETS CBCD CMP Performed By: #### L 100.0100, L500.4050, L506.1000, L500.4100 #### [facility] [address] [place], [address] Creatinine [Mass/Vol] 0.83 mg/dL Normal 0.55-1.02 [place] Comment on above: Order Comment: DR. Alayna SWARTZ GETS LIPID AND VITD DR. ORTA GETS CBCD CMP Result Comment: The validity of the calculated GFR GFRAA in patients over 70 years has not been determined. Clinical correlation is essential. Performed By: #### L 100.0100, L500.4050, L506.1000, L500.4100 #### [facility] [address] [place], [address] EST GFR - AA 88 mL/min Normal >60 [facility] Comment on above: Order Comment: DR. Alayna SWARTZ GETS LIPID AND VITD DR. ORTA GETS CBCD CMP Result Comment: Afri can Niuean GFR Calc Performed By: #### L 100.0100, L500.4050, L506.1000, L500.4100 #### [facility] [address] [place], [address] GAP 5 Normal 5-15 [facility] Comment on above: Order Comment: DR. Alayna SWARTZ GETS LIPID AND VITD DR. ORTA GETS CBCD CMP Performed By: #### L 100.0100, L500.4050, L506.1000, L500.4100 #### [facility] [address] [place], [address] GFR/1.73 sq M.predicted among non-blacks MDRD (S/P/Bld) [Vol rate/Area] 72 mL/min/{1.73_m2} Normal >60 [facility] Comment on above: Order Comment: DR. Alayna SWARTZ GETS LIPID AND VITD DR. ORTA GETS CBCD CMP Result Comment: Non- GFR Calc Performed By: #### L 100.0100, L500.4050, L506.1000, L500.4100 #### [facility] [address] [place], [address] Globulin (S) [Mass/Vol] 3.4 g/dL Normal 2.2-4.2 [facility] Comment on above: Order Comment: DR. Alayna SWARTZ GETS LIPID AND VITD DR. ORTA GETS CBCD CMP Performed By: #### L 100.0100, L500.4050, L506.1000, L500.4100 #### [facility] [address] [place], [address] Glucose [Mass/Vol] 96 mg/dL Normal 74-106 [facility] Comment on above: Order Comment: DR. Alayna SWARTZ GETS LIPID AND VITD DR. ORTA GETS CBCD CMP Performed By: #### L 100.0100, L500.4050, L506.1000, L500.4100 #### [facility] [address] [place], [address] Potassium [Moles/Vol] 4.2 mmol/L Normal 3.5-5.1 [place] Comment on above: Order Comment: DR. Alayna SWARTZ GETS LIPID AND VITD DR. ORTA GETS CBCD CMP Performed By: #### L 100.0100, L500.4050, L506.1000, L500.4100 #### [facility] [address] [place], [address] Sodium [Moles/Vol] 140 mmol/L Normal 136-145 [facility] Comment on above: Order Comment: DR. Alayna SWARTZ GETS LIPID AND VITD DR. ORTA GETS CBCD CMP Performed By: #### L 100.0100, L500.4050, L506.1000, L500.4100 #### [facility] [address] [place], [address] T PROT 7.3 g/dL Normal 6.4-8.2 [facility] Comment on above: Order Comment: DR. Alayna SWARTZ GETS LIPID AND VITD DR. ORTA GETS CBCD CMP Performed By: #### L 100.0100, L500.4050, L506.1000, L500.4100 #### [facility] [address] [place], [address] Urea nitrogen [Mass/Vol] 17 mg/dL Normal 7-18 [facility] Comment on above: Order Comment: DR. Alayna SWARTZ GETS LIPID AND VITD DR. ORTA GETS CBCD CMP Performed By: #### L 100.0100, L500.4050, L506.1000, L500.4100 #### [facility] [address] [place], [address] Lipid Profileon 02-06-2024 Cholesterol [Mass/Vol] 237 mg/dL High 200 [facility] Comment on above: Order Comment: DR. Alayna SWARTZ GETS LIPID AND VITD DR. ORTA GETS CBCD CMP Result Comment: <200 mg/dL Desirable 200-240 mg/dL Borderline >240 mg/dL High Risk Performed By: #### L 100.0100, L500.4050, L506.1000, L500.4100 #### [facility] [address] [place], [address] Cholesterol in HDL [Mass/Vol] 88 mg/dL Normal [facility] Comment on above: Order Comment: DR. Alayna SWARTZ GETS LIPID AND VITD DR. ORTA GETS CBCD CMP Result Comment: The drugs N-Acetylcysteine and Metamizole may falsely depress this assay. Reference Range HDL <40 mg/dL Low HDL Cholesterol HDL >or= 60 mg/dL High HDL Cholesterol Performed By: #### L 100.0100, L500.4050, L506.1000, L500.4100 #### [facility] [address] [place], [address] Cholesterol in LDL [Mass/Vol] 135 mg/dL High 0-130 [facility] Comment on above: Order Comment: DR. Alayna SWARTZ GETS LIPID AND VITD DR. ORTA GETS CBCD CMP Performed By: #### L 100.0100, L500.4050, L506.1000, L500.4100 #### [facility] [address] [place], [address] Cholesterol in VLDL [Mass/Vol] 14 mg/dL Normal 5-40 [facility] Comment on above: Order Comment: DR. Alayna SWARTZ GETS LIPID AND VITD DR. ORTA GETS CBCD CMP Performed By: #### L 100.0100, L500.4050, L506.1000, L500.4100 #### [facility] [address] [place], [address] Triglyceride [Mass/Vol] 71 mg/dL Normal [facility] Comment on above: Order Comment: DR. Alayna SWARTZ GETS LIPID AND VITD DR. ORTA GETS CBCD CMP Result Comment: The drugs N-Acetylcysteine and Metamizole may falsely depress this assay. Serum Triglycerides Reference Interval Normal <150 mg/dL Borderline high 150 - 199 mg/dL High 200 - 499 mg/dL Very High > or = 500 mg/dL Performed By: #### L 100.0100, L500.4050, L506.1000, L500.4100 #### [facility] [address] [place], [address] Vitamin D,25 Hydroxyon 02-05 Vitamin D 25-OH 67.5 ng/mL Normal [facility] Comment on above: Order Comment: DR. Alayna SWARTZ GETS LIPID AND VITD DR. ORTA GETS CBCD CMP Result Comment: Tessie min D 25(OH) Status Range Deficiency <20 ng/mL (50nmol/L) Insufficiency 20 - 30 ng/mL (50 - 75 nmol/L) Sufficiency 30 - 100 ng/mL (75 - 250 nmol/L) Toxicity >100 ng/mL (>250 nmol/L) Performed By: #### L 100.0100, L500.4050, L506.1000, L500.4100 #### [facility] [address] [place], [address] Internal Medicine Office Vis iton 01-13-2024 Internal Medicine Office Visit [facility] [address] [place] [address] [place] [address] OFFICE VISIT Date of Service: 01/13/24 MR#: [id number] Acct: [id number] Name: GISEL SAWYER Rep #: [id number] : 1955 Provider: Dr. 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 Normal [facility] Cardiology Visit Reporton Cardiology Visit Report [facility] 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 Normal [facility] Pacemaker Checkon 01-12-2024 Pacemaker Check [facility] [address] [place] [address]. [address] [place] [address] Pacemaker Check Date of Service: 01/12/241736 MR#: [id number] Acct: [id number] Name: GISEL SAWYER Madi Rep #: [id number] : 1955 From: Olivia Carlos Age/Sex: 68/F Location: [facility] [place] Status: Signed Billing Codes PM Device Codes: 38585 PM Dev Prog Eval, Dual Assessment and Plan Assessment and Plan (1) Presence of cardiac pacemaker: Status: Chronic (2) Paroxysmal atrial fibrillation: Status: Chronic (3) Lgvfs-Scsejacba-Iwn te syndrome: Status: Chronic 01/12/241737 Date Olivia Villalpando Signature: Date (if applicable) CC: Normal [facility] CBC W/Diff, Automatedon 07-0 3-2024 Absolute Lymph 2.73 X10 3/uL Normal 0.83-4.51 [facility] Comment on above: Performed By: #### L 500.4050, L100.0100 #### [facility] [address] [place], [address] Absolute Neut 4.2 X10 3/uL Normal 2.0-7.7 [facility] Comment on above: Performed By: #### L 500.4050, L100.0100 #### [facility] [address] [place], [address] Basophils/100 WBC (Bld) 0.6 % Normal 0-1 [facility] Comment on above: Performed By: #### L 500.4050, L100.0100 #### [facility] [address] [place], [address] Eosinophils/100 WBC (Bld) 1.0 % Normal 0-5 [facility] Comment on above: Performed By: #### L 500.4050, L100.0100 #### [facility] [address] [place], [address] Erythrocyte distribution width (RBC) [Ratio] 13.9 % Normal 11.6-14.6 [facility] Comment on above: Performed By: #### L 500.4050, L100.0100 #### [facility] [address] [place], [address] Hematocrit (Bld) [Volume fraction] 39.1 % Normal 37-47 [facility] Comment on above: Performed By: #### L 500.4050, L100.0100 #### [facility] [address] [place], [address] Hemoglobin (Bld) [Mass/Vol] 12.8 g/dL Normal 12.0-15.0 [facility] Comment on above: Performed By: #### L 500.4050, L100.0100 #### [facility] [address] [place], [address] IG% 0.300 Normal 0.0-0.9 [facility] Comment on above: Result Comment: IG% - Immature Granulocytes (promyelocytes, myelocytes and metamyelocytes) > 1% indicates that a LEFT SHIFT is Present. Performed By: #### L 500.4050, L100.0100 #### [facility] [address] [place], [address] Lymphocytes/100 WBC (Bld) 35.4 % Normal 19-41 [facility] Comment on above: Performed By: #### L 500.4050, L100.0100 #### [facility] [address] [place], [address] MCH (RBC) [Entitic mass] 30.3 pg Normal 27.0-32.0 [facility] Comment on above: Performed By: #### L 500.4050, L100.0100 #### [facility] [address] [place], [address] MCHC (RBC) [Mass/Vol] 32.7 g/dL Normal 32-36 [facility] Comment on above: Performed By: #### L 500.4050, L100.0100 #### [facility] [address] [place], [address] MCV (RBC) [Entitic vol] 92.7 fL Normal 81-99 [facility] Comment on above: Performed By: #### L 500.4050, L100.0100 #### [facility] [address] [place], [address] Monocytes/100 WBC (Bld) 8.2 % Normal 0-10 [facility] Comment on above: Performed By: #### L 500.4050, L100.0100 #### [facility] [address] [place], [address] Neutrophils/100 WBC (Bld) 54.5 % Normal 47-70 [facility] Comment on above: Performed By: #### L 500.4050, L100.0100 #### [facility] [address] [place], [address] Nucleated RBC (Bld) [#/Vol] 0 10*3/uL Normal 0-5 [facility] Comment on above: Performed By: #### L 500.4050, L100.0100 #### [facility] [address] [place], [address] Platelet mean volume (Bld) [Entitic vol] 11.1 fL Normal 6.2-12.0 [facility] Comment on above: Performed By: #### L 500.4050, L100.0100 #### [facility] [address] [place], [address] Platelets (Bld) [#/Vol] 160 10*3/uL Normal 150-450 [facility] Comment on above: Performed By: #### L 500.4050, L100.0100 #### [facility] [address] [place], [address] RBC (Bld) [#/Vol] 4.22 10*6/uL Normal 4.2-5.[address] [facility] Comment on above: Performed By: #### L 500.4050, L100.0100 #### [facility] [address] [place], [address] RDW SD 46.8 fl High 35.1-43.9 [facility] Comment on above: Performed By: #### L 500.4050, L100.0100 #### [facility] [address] [place], [address] WBC (Bld) [#/Vol] 7.7 10*3/uL Normal 4.4-11.0 [facility] Comment on above: Performed By: #### L 500.4050, L100.0100 #### [facility] [address] [place], [address] Comprehensive Metabolic Prof ilon 11-09-2023 Albumin [Mass/Vol] 3.8 g/dL Normal 3.2-5.0 [facility] Comment on above: Performed By: #### L 500.4050, L100.0100 #### [facility] [address] [place], [address] Albumin/Globulin [Mass ratio] 1.2 {ratio} Normal 0.9-2.4 [facility] Comment on above: Performed By: #### L 500.4050, L100.0100 #### [facility] [address] [place], [address] ALK P 58 U/L Normal 45-117 [facility] Comment on above: Performed By: #### L 500.4050, L100.0100 #### [facility] [address] [place], [address] ALT [Catalytic activity/Vol] 27 U/L Normal 13-56 [facility] Comment on above: Performed By: #### L 500.4050, L100.0100 #### [facility] [address] [place], [address] AST [Catalytic activity/Vol] 22 U/L Normal 15-37 [facility] Comment on above: Performed By: #### L 500.4050, L100.0100 #### [facility] [address] [place], [address] Bilirubin [Mass/Vol] 0.30 mg/dL Normal 0.20-1.00 [facility] Comment on above: Result Comment: For patients on eltrombopag therapy, use of Dimension [place] TBIL is not recommended. Performed By: #### L 500.4050, L100.0100 #### [facility] [address] [place], [address] BUN/CRE 24.0 RATIO High 10-20 [facility] Comment on above: Performed By: #### L 500.4050, L100.0100 #### [facility] [address] [place], [address] CA,Total 9.5 mg/dL Normal 8.5-10.1 [facility] Comment on above: Performed By: #### L 500.4050, L100.0100 #### [facility] [address] [place], [address] Chloride [Moles/Vol] 106 mmol/L Normal 98-107 [facility] Comment on above: Performed By: #### L 500.4050, L100.0100 #### [facility] [address] [place], [address] CO2 [Moles/Vol] 25.0 mmol/L Normal 21.0-32.0 [facility] Comment on above: Performed By: #### L 500.4050, L100.0100 #### [facility] [address] [place], [address] Creatinine [Mass/Vol] 0.84 mg/dL Normal 0.55-1.02 [facility] Comment on above: Result Comment: The validity of the calculated GFR GFRAA in patients over 70 years has not been determined. Clinical correlation is essential. Performed By: #### L 500.4050, L100.0100 #### [facility] [address] [place], [address] EST GFR - AA 87 mL/min Normal >60 [facility] Comment on above: Result Comment: Afri can Niuean GFR Calc Performed By: #### L 500.4050, L100.0100 #### [facility] [address] [place], [address] GAP 8 Normal 5-15 [facility] Comment on above: Performed By: #### L 500.4050, L100.0100 #### [facility] [address] [place], [address] GFR/1.73 sq M.predicted among non-blacks MDRD (S/P/Bld) [Vol rate/Area] 72 mL/min/{1.73_m2} Normal >60 [facility] Comment on above: Result Comment: Non- GFR Calc Performed By: #### L 500.4050, L100.0100 #### [facility] [address] [place], [address] Globulin (S) [Mass/Vol] 3.2 g/dL Normal 2.2-4.2 [facility] Comment on above: Performed By: #### L 500.4050, L100.0100 #### [facility] [address] [place], [address] Glucose [Mass/Vol] 92 mg/dL Normal 74-106 [facility] Comment on above: Performed By: #### L 500.4050, L100.0100 #### [facility] [address] [place], [address] Potassium [Moles/Vol] 3.7 mmol/L Normal 3.5-5.1 [facility] Comment on above: Performed By: #### L 500.4050, L100.0100 #### [facility] [address] [place], [address] Sodium [Moles/Vol] 139 mmol/L Normal 136-145 [facility] Comment on above: Performed By: #### L 500.4050, L100.0100 #### [facility] [address] [place], [address] T PROT 7.0 g/dL Normal 6.4-8.2 [facility] Comment on above: Performed By: #### L 500.4050, L100.0100 #### [facility] [address] [place], [address] Urea nitrogen [Mass/Vol] 20 mg/dL High 7-18 [facility] Comment on above: Performed By: #### L 500.4050, L100.0100 #### [facility] [address] [place], [address] DIAG MAMM W/CAD, UNILATon DIAG MAMM W/CAD, UNILAT [facility] Imaging Services [address] [place] [address] DIAG MAMM W/CAD, UNILAT MR#: [id number] Acct: [id number] Name: GISEL SAWYER Rep #: [id number] : 1955 F 68 From: Shahriar daniels MD PCP: Dr. Melba Young MD Status: [facility] Study: DIAG MAMM W/CAD, UNILAT Date of Exam: 11/02/23 Exam# [id number] Ordering Dr: Melba Young MD -[id number] MAMMOGRAPHY - UNILATERAL DIAGNOSTIC: RIGHT BREAST [...] 13:54 EDT Reading Location ID and State: [facility] / [place] , Service support , CC: Dr. Melba Young MD Drier: Signed Normal [facility] SCRN MAMM (CAD)W/MOLLY BILATo n 11-02-2023 SCRN MAMM (CAD)W/MOLLY BILAT [facility] Imaging Services [address] [place], [place] [address] SCRN MAMM (CAD)W/MOLLY BILAT MR#: [id number] Acct: [id number] Name: GISEL SAWYER Rep #: [id number] : 1955 F 68 From: Shahriar daniels MD PCP: Dr. Melba Young MD Status: [facility] Study: SCRN MAMM (CAD)W/MOLLY BILAT Date of Exam: 10/08 10/30 Exam# [id number] Ordering Dr: Melba Young MD -[id number] MAMMOGRAPHY - BILATERAL SCREENING REASON FOR [...] delay biopsy of a clinically suspicious abnormality. [id number] Electronically Signed: Shahriar Keane MD at 9:35 EDT , CC: Dr. Melba Young MD Drier: Signed Normal [facility] Absolute lymphocyte countOrd ered By: Stephanie Orta on 08-19-2023 Lymphocytes Auto (Unsp spec) [#/Vol] 2.32 10*3/uL 0.83-4.51 [facility] Automated lymphocyte count a s percentage of total leukocytesOrdered By: Stephanie Orta on 08-19-2023 Lymphocytes/100 WBC Auto (Unsp spec) 35.2 % 19-41 [facility] Basophil percentageOrdered B y: Stephanei Orta on 08-19-2023 Basophils/100 WBC (Bld) 0.8 % 0-1 [facility] Bilirubin [Mass/Vol] 0.40 mg/dL 0.20-1.00 [facility] Comment on above: For patients on eltr ombopag therapy, use of Dimension [place] TBIL is not recommended. Chloride [Moles/Vol] 107 mmol/L 98-107 [facility] Eosinophils/100 WBC (Bld) 1.5 % 0-5 [facility] Glucose [Mass/Vol] 80 mg/dL 74-106 [facility] Hemoglobin (Bld) [Mass/Vol] 13.3 g/dL 12.0-15.0 [facility] Monocytes/100 WBC (Bld) 7.1 % 0-10 [facility] Neutrophils (Bld) [#/Vol] 3.6 10*3/uL 2.0-7.7 [facility] Neutrophils/100 WBC (Bld) 55.1 % 47-70 [facility] Potassium [Moles/Vol] 3.5 mmol/L 3.5-5.1 [place] Protein [Mass/Vol] 7.4 g/dL 6.4-8.2 [facility] Sodium [Moles/Vol] 141 mmol/L 136-145 [facility] WBC (Bld) [#/Vol] 6.6 10*3/uL 4.4-11.0 [facility] Determination of erythrocyte mean corpuscular volume (MCV)Ordered By: Stephanie Orta on 08-19-2023 MCV (RBC) [Entitic vol] 94.0 fL 81-99 [facility] Erythrocyte distribution wid th ratioOrdered By: [facility] You on 08-19-2023 Erythrocyte distribution width (RBC) [Ratio] 14.0 % 11.6-14.6 [facility] Erythrocyte distribution wid th standard deviationOrdered By: [facility] You on 08-19-2023 Erythrocyte distribution width (RBC) [Entitic vol] 47.9 fL 35.1-43.9 [facility] Hematocrit Auto (Bld) [Volum e fraction]Ordered By: [facility] You on 08-19-2023 Hematocrit (Bld) [Volume fraction] 42.2 % 37-47 [facility] Immature granulocytes/100 WB C Auto (Bld)Ordered By: [facility] You on 08-19-2023 Immature granulocytes/100 WBC (Bld) 0.300 % 0.0-0.9 [facility] Comment on above: IG% - Immature Granu locytes (promyelocytes, myelocytes and metamyelocytes) > 1% indicates that a LEFT SHIFT is Present. Laboratory - Chemistry and C hemistry - challengeOrdered By: [facility] You on 08-19-2023 Albumin/Globulin [Mass ratio] 1.1 {ratio} 0.9-2.4 [facility] ALP [Catalytic activity/Vol] 65 U/L 45-117 [facility] ALT [Catalytic activity/Vol] 29 U/L 13-56 [facility] CO2 [Moles/Vol] 30.0 mmol/L 21.0-32.0 [facility] Globulin (S) [Mass/Vol] 3.6 g/dL 2.2-4.2 [facility] Urea nitrogen/Creatinine [Mass ratio] 18.4 mg/mg 10-20 [facility] Laboratory - Hematology and Cell countsOrdered By: Stephaniemichelle Orta on 08-19-2023 MCH (RBC) [Entitic mass] 29.6 pg 27.0-32.0 [facility] MCHC (RBC) [Mass/Vol] 31.5 g/dL 32-36 [place] Nucleated RBC/100 WBC (Bld) [Ratio] 0 % 0-5 [facility] Platelet mean volume (Bld) [Entitic vol] 11.8 fL 6.2-12.0 [facility] Platelets (Bld) [#/Vol] 170 10*3/uL 150-450 [facility] No Panel InformationOrdered By: Stephanie Orta on 08-19-2023 Estimated GFR (MDRD) Amer 78 mL/min >60 [facility] Comment on above: GFR Calc Estimated GFR (MDRD) Non-Af Amer 64 mL/min >60 [facility] Comment on above: Non- GFR Calc RBC Auto (Bld) [#/Vol]Ordere d By: Stephanie Orta on 08-19-2023 RBC (Bld) [#/Vol] 4.49 10*6/uL 4.2-5.[address] [facility] Serum or plasma calcium blessing urement (mass/volume)Ordered By: Stephanie Orta on 08-19-2023 Calcium [Mass/Vol] 9.4 mg/dL 8.5-10.1 [facility] Serum or plasma creatinine m easurement (mass/volume)Ordered By: Stephanie Orta on 08-19-2023 Creatinine [Mass/Vol] 0.92 mg/dL 0.55-1.02 [place] Comment on above: The validity of the calculated GFR & GFRAA in patients over 70 years has not been determined. Clinical correlation is essential. Serum or plasma urea nitroge n measurement (mass/volume)Ordered By: Stephanie Orta on 08-19-2023 Urea nitrogen [Mass/Vol] 17 mg/dL 7-18 [facility] Thin prep Papanicolaou smear with manual screeningOrdered By: Stephanie Orta on 08-19-2023 Thin prep Papanicolaou smear with manual screening 3.8 g/dL 3.2-5.0 [facility] Thin prep Papanicolaou smear with manual screening 21 U/L 15-37 [facility] Thin prep Papanicolaou smear with manual screening 4 5-15 [facility] Absolute lymphocyte countOrd ered By: Stephanie Orta on 05-25-2023 Lymphocytes Auto (Unsp spec) [#/Vol] 2.16 10*3/uL 0.83-4.51 [facility] Automated lymphocyte count a s percentage of total leukocytesOrdered By: Stephanie Orta on 05-25-2023 Lymphocytes/100 WBC Auto (Unsp spec) 27.3 % 19-41 [facility] Basophil percentageOrdered B y: Stephanie Orta on 05-25-2023 Basophils/100 WBC (Bld) 0.6 % 0-1 [facility] Bilirubin [Mass/Vol] 0.40 mg/dL 0.20-1.00 [facility] Comment on above: For patients on eltr ombopag therapy, use of Dimension [place] TBIL is not recommended. Chloride [Moles/Vol] 109 mmol/L 98-107 [facility] Eosinophils/100 WBC (Bld) 1.1 % 0-5 [facility] Glucose [Mass/Vol] 107 mg/dL 74-106 [facility] Comment on above: Fasting Glucose resu lt from 100 to 125 mg/dL suggests IMPAIRED HOMEOSTASIS per A.D.A. criteria. Hemoglobin (Bld) [Mass/Vol] 13.5 g/dL 12.0-15.0 [facility] Monocytes/100 WBC (Bld) 6.8 % 0-10 [facility] Neutrophils (Bld) [#/Vol] 5.0 10*3/uL 2.0-7.7 [facility] Neutrophils/100 WBC (Bld) 63.7 % 47-70 [facility] Potassium [Moles/Vol] 3.7 mmol/L 3.5-5.1 [place] Protein [Mass/Vol] 7.2 g/dL 6.4-8.2 [facility] Sodium [Moles/Vol] 142 mmol/L 136-145 [facility] WBC (Bld) [#/Vol] 7.9 10*3/uL 4.4-11.0 [facility] Determination of erythrocyte mean corpuscular volume (MCV)Ordered By: Stephanie Orta on 05-25-2023 MCV (RBC) [Entitic vol] 94.4 fL 81-99 [facility] Erythrocyte distribution wid th ratioOrdered By: Stephanie Orta on 05-25-2023 Erythrocyte distribution width (RBC) [Ratio] 13.9 % 11.6-14.6 [facility] Erythrocyte distribution wid th standard deviationOrdered By: Stephanie Orta on 05-25-2023 Erythrocyte distribution width (RBC) [Entitic vol] 48.7 fL 35.1-43.9 [facility] Hematocrit Auto (Bld) [Volum e fraction]Ordered By: Stephanie Orta on 05-25-2023 Hematocrit (Bld) [Volume fraction] 42.2 % 37-47 [facility] Immature granulocytes/100 WB C Auto (Bld)Ordered By: Stephaniemichelle Orta on 05-25-2023 Immature granulocytes/100 WBC (Bld) 0.500 % 0.0-0.9 [facility] Comment on above: IG% - Immature Granu locytes (promyelocytes, myelocytes and metamyelocytes) > 1% indicates that a LEFT SHIFT is Present. Laboratory - Chemistry and C hemistry - challengeOrdered By: [facility] You on 05-25-2023 Albumin/Globulin [Mass ratio] 1.1 {ratio} 0.9-2.4 [facility] ALP [Catalytic activity/Vol] 60 U/L 45-117 [facility] ALT [Catalytic activity/Vol] 35 U/L 13-56 [facility] CO2 [Moles/Vol] 29.0 mmol/L 21.0-32.0 [facility] Globulin (S) [Mass/Vol] 3.5 g/dL 2.2-4.2 [facility] Urea nitrogen/Creatinine [Mass ratio] 23.7 mg/mg 10-20 [facility] Laboratory - Hematology and Cell countsOrdered By: Stephaniemichelle Orta on 05-25-2023 MCH (RBC) [Entitic mass] 30.2 pg 27.0-32.0 [facility] MCHC (RBC) [Mass/Vol] 32.0 g/dL 32-36 [place] Nucleated RBC/100 WBC (Bld) [Ratio] 0 % 0-5 [facility] Platelets (Bld) [#/Vol] 210 10*3/uL 150-450 [facility] No Panel InformationOrdered By: Stephanie Orta on 05-25-2023 Estimated GFR (MDRD) Amer 111 mL/min >60 [facility] Comment on above: GFR Calc Estimated GFR (MDRD) Non-Af Amer 92 mL/min >60 [facility] Comment on above: Non- GFR Calc Platelet mean volume Myles-Ec ker (Bld) [Entitic vol]Ordered By: Stephanie Orta on 05-25-2023 Platelet mean volume (Bld) [Entitic vol] 10.8 fL 6.2-12.0 [facility] RBC Auto (Bld) [#/Vol]Ordere d By: Stephanie Orta on 05-25-2023 RBC (Bld) [#/Vol] 4.47 10*6/uL 4.2-5.[address] [facility] Serum or plasma calcium blessing urement (mass/volume)Ordered By: Stephanie Orta on 05-25-2023 Calcium [Mass/Vol] 9.2 mg/dL 8.5-10.1 [facility] Serum or plasma creatinine m easurement (mass/volume)Ordered By: Stephanie Orta on 05-25-2023 Creatinine [Mass/Vol] 0.68 mg/dL 0.55-1.02 [place] Comment on above: The validity of the calculated GFR & GFRAA in patients over 70 years has not been determined. Clinical correlation is essential. Serum or plasma urea nitroge n measurement (mass/volume)Ordered By: Stephanie Orta on 05-25-2023 Urea nitrogen [Mass/Vol] 16 mg/dL 7-18 [facility] Thin prep Papanicolaou smear with manual screeningOrdered By: Stephanie Orta on 05-25-2023 Thin prep Papanicolaou smear with manual screening 3.7 g/dL 3.2-5.0 [facility] Thin prep Papanicolaou smear with manual screening 28 U/L 15-37 [facility] Thin prep Papanicolaou smear with manual screening 4 5-15 [facility] Absolute lymphocyte countOrd ered By: Stephanie Orta on 02-18-2023 Lymphocytes Auto (Unsp spec) [#/Vol] 2.31 10*3/uL 0.83-4.51 [facility] Basophil percentageOrdered B y: Stephanie Orta on 02-18-2023 Basophils/100 WBC (Bld) 0.7 % 0-1 [facility] Bilirubin [Mass/Vol] 0.30 mg/dL 0.20-1.00 [facility] Comment on above: For patients on eltr ombopag therapy, use of Dimension [place] TBIL is not recommended. Chloride [Moles/Vol] 109 mmol/L 98-107 [facility] Eosinophils/100 WBC (Bld) 1.2 % 0-5 [facility] Glucose [Mass/Vol] 99 mg/dL 74-106 [facility] Neutrophils (Bld) [#/Vol] 3.7 10*3/uL 2.0-7.7 [facility] Neutrophils/100 WBC (Bld) 54.7 % 47-70 [facility] Potassium [Moles/Vol] 3.9 mmol/L 3.5-5.1 [place] Protein [Mass/Vol] 7.3 g/dL 6.4-8.2 [facility] Sodium [Moles/Vol] 140 mmol/L 136-145 [facility] WBC (Bld) [#/Vol] 6.8 10*3/uL 4.4-11.0 [facility] Blood erythrocytes count (nu mber/volume)Ordered By: Stephanie Orat on 02-18-2023 RBC (Bld) [#/Vol] 4.26 10*6/uL 4.2-5.[address] [facility] Blood hemoglobin measurement (mass/volume)Ordered By: Stephanie Orta on 02-18-2023 Hemoglobin (Bld) [Mass/Vol] 12.8 g/dL 12.0-15.0 [facility] Blood lymphocytes/100 leukoc ytesOrdered By: Stephanie Orta on 02-18-2023 Lymphocytes/100 WBC (Bld) 34.0 % 19-41 [facility] Blood monocytes/100 leukocyt esOrdered By: Stephanie Orta on 02-18-2023 Monocytes/100 WBC (Bld) 9.1 % 0-10 [facility] Blood platelet mean volumeOr dered By: Stephaine Orta on 02-18-2023 Platelet mean volume (Bld) [Entitic vol] 10.9 fL 6.2-12.0 [facility] Determination of erythrocyte mean corpuscular volume (MCV)Ordered By: Stephanie Orta on 02-18-2023 MCV (RBC) [Entitic vol] 96.9 fL 81-99 [facility] Hematocrit Auto (Bld) [Volum e fraction]Ordered By: Stephaniemichelle Orta on 02-18-2023 Hematocrit (Bld) [Volume fraction] 41.3 % 37-47 [facility] Laboratory - Chemistry and C hemistry - challengeOrdered By: Stephaniemichelle Orta on 02-18-2023 ALP [Catalytic activity/Vol] 67 U/L 45-117 [facility] ALT [Catalytic activity/Vol] 31 U/L 13-56 [facility] CO2 [Moles/Vol] 26.0 mmol/L 21.0-32.0 [facility] Globulin (S) [Mass/Vol] 3.6 g/dL 2.2-4.2 [facility] Urea nitrogen/Creatinine [Mass ratio] 24.5 mg/mg 10-20 [facility] Laboratory - Hematology and Cell countsOrdered By: [facility] You on 02-18-2023 Erythrocyte distribution width (RBC) [Entitic vol] 49.7 fL 35.1-43.9 [facility] Erythrocyte distribution width (RBC) [Ratio] 14.1 % 11.6-14.6 [facility] Immature granulocytes/100 WBC (Bld) 0.300 % 0.0-0.9 [facility] Comment on above: IG% - Immature Granu locytes (promyelocytes, myelocytes and metamyelocytes) > 1% indicates that a LEFT SHIFT is Present. MCH (RBC) [Entitic mass] 30.0 pg 27.0-32.0 [facility] Nucleated RBC/100 WBC (Bld) [Ratio] 0 % 0-5 [facility] MCHC Auto (RBC) [Mass/Vol]Or dered By: Stephaniemichelle Orta on 02-18-2023 MCHC (RBC) [Mass/Vol] 31.0 g/dL 32-36 [place] No Panel InformationOrdered By: Stephaniemichelle Orta on 02-18-2023 Estimated GFR (MDRD) Amer 73 mL/min >60 [facility] Comment on above: GFR Calc Estimated GFR (MDRD) Non-Af Amer 60 mL/min >60 [facility] Comment on above: Non- GFR Calc Platelets bldOrdered By: Maria Del Rosario Orta on 02-18-2023 Platelets (Bld) [#/Vol] 191 10*3/uL 150-450 [facility] Serum or plasma albumin blessing urement (mass/volume)Ordered By: Stephanie Orta on 02-18-2023 Albumin [Mass/Vol] 3.7 g/dL 3.2-5.0 [facility] Serum or plasma albumin/glob ulin mass ratioOrdered By: Stephanie Orta on 02-18-2023 Albumin/Globulin [Mass ratio] 1.0 {ratio} 0.9-2.4 [facility] Serum or plasma calcium blessing urement (mass/volume)Ordered By: Stephanie Orta on 02-18-2023 Calcium [Mass/Vol] 9.4 mg/dL 8.5-10.1 [facility] Serum or plasma creatinine m easurement (mass/volume)Ordered By: Stephanie Orta on 02-18-2023 Creatinine [Mass/Vol] 0.98 mg/dL 0.55-1.02 [place] Comment on above: The validity of the calculated GFR & GFRAA in patients over 70 years has not been determined. Clinical correlation is essential. Serum or plasma urea nitroge n measurement (mass/volume)Ordered By: Stephanie Orta on 02-18-2023 Urea nitrogen [Mass/Vol] 24 mg/dL 7-18 [facility] Thin prep Papanicolaou smear with manual screeningOrdered By: Stephanie Orta on 02-18-2023 Thin prep Papanicolaou smear with manual screening 19 U/L 15-37 [facility] Thin prep Papanicolaou smear with manual screening 5 5-15 [facility] Absolute lymphocyte countOrd ered By: Stephanie Orta on 11-30-2022 Lymphocytes Auto (Unsp spec) [#/Vol] 2.21 10*3/uL 0.83-4.51 [facility] Basophil percentageOrdered B y: Stephanie Orta on 11-30-2022 Basophils/100 WBC (Bld) 0.7 % 0-1 [facility] Bilirubin [Mass/Vol] 0.20 mg/dL 0.20-1.00 [facility] Comment on above: For patients on eltr ombopag therapy, use of Dimension [place] TBIL is not recommended. Chloride [Moles/Vol] 109 mmol/L 98-107 [facility] Eosinophils/100 WBC (Bld) 1.9 % 0-5 [facility] Glucose [Mass/Vol] 103 mg/dL 74-106 [facility] Comment on above: Fasting Glucose resu lt from 100 to 125 mg/dL suggests IMPAIRED HOMEOSTASIS per A.D.A. criteria. Neutrophils (Bld) [#/Vol] 4.1 10*3/uL 2.0-7.7 [facility] Neutrophils/100 WBC (Bld) 57.4 % 47-70 [facility] Potassium [Moles/Vol] 3.8 mmol/L 3.5-5.1 [place] Protein [Mass/Vol] 7.1 g/dL 6.4-8.2 [facility] Sodium [Moles/Vol] 140 mmol/L 136-145 [facility] WBC (Bld) [#/Vol] 7.2 10*3/uL 4.4-11.0 [facility] Blood erythrocytes count (nu mber/volume)Ordered By: Stephanie Orta on 11-30-2022 RBC (Bld) [#/Vol] 4.30 10*6/uL 4.2-5.[address] [facility] Blood hemoglobin measurement (mass/volume)Ordered By: Stephanie Orta on 11-30-2022 Hemoglobin (Bld) [Mass/Vol] 13.2 g/dL 12.0-15.0 [facility] Blood lymphocytes/100 leukoc ytesOrdered By: Stephanie Orta on 11-30-2022 Lymphocytes/100 WBC (Bld) 30.6 % 19-41 [facility] Blood monocytes/100 leukocyt esOrdered By: Stephanie Orta on 11-30-2022 Monocytes/100 WBC (Bld) 9.3 % 0-10 [facility] Blood platelet mean volumeOr dered By: Stephanie Orta on 11-30-2022 Platelet mean volume (Bld) [Entitic vol] 11.3 fL 6.2-12.0 [facility] Determination of erythrocyte mean corpuscular volume (MCV)Ordered By: Stephanie Orta on 11-30-2022 MCV (RBC) [Entitic vol] 94.4 fL 81-99 [facility] Hematocrit Auto (Bld) [Volum e fraction]Ordered By: Stephanie Orta on 11-30-2022 Hematocrit (Bld) [Volume fraction] 40.6 % 37-47 [facility] Laboratory - Chemistry and C hemistry - challengeOrdered By: [facility] You on 11-30-2022 ALP [Catalytic activity/Vol] 67 U/L 45-117 [facility] ALT [Catalytic activity/Vol] 31 U/L 13-56 [facility] CO2 [Moles/Vol] 26.0 mmol/L 21.0-32.0 [facility] Globulin (S) [Mass/Vol] 3.4 g/dL 2.2-4.2 [facility] Urea nitrogen/Creatinine [Mass ratio] 21.9 mg/mg 10-20 [facility] Laboratory - Hematology and Cell countsOrdered By: Stephaniemichelle Orta on 11-30-2022 Erythrocyte distribution width (RBC) [Entitic vol] 46.5 fL 35.1-43.9 [facility] Erythrocyte distribution width (RBC) [Ratio] 13.5 % 11.6-14.6 [facility] Immature granulocytes/100 WBC (Bld) 0.100 % 0.0-0.9 [facility] Comment on above: IG% - Immature Granu locytes (promyelocytes, myelocytes and metamyelocytes) > 1% indicates that a LEFT SHIFT is Present. MCH (RBC) [Entitic mass] 30.7 pg 27.0-32.0 [facility] Nucleated RBC/100 WBC (Bld) [Ratio] 0 % 0-5 [facility] MCHC Auto (RBC) [Mass/Vol]Or dered By: Stephanie Orta on 11-30-2022 MCHC (RBC) [Mass/Vol] 32.5 g/dL 32-36 [place] No Panel InformationOrdered By: Stephanie Orta on 11-30-2022 Estimated GFR (MDRD) Amer 67 mL/min >60 [facility] Comment on above: GFR Calc Estimated GFR (MDRD) Non-Af Amer 56 mL/min >60 [facility] Comment on above: Non- GFR Calc Platelets bldOrdered By: Maria Del Rosario Orta on 11-30-2022 Platelets (Bld) [#/Vol] 156 10*3/uL 150-450 [facility] Serum or plasma albumin blessing urement (mass/volume)Ordered By: Stephanie Orta on 11-30-2022 Albumin [Mass/Vol] 3.7 g/dL 3.2-5.0 [facility] Serum or plasma albumin/glob ulin mass ratioOrdered By: Stephanie Orta on 11-30-2022 Albumin/Globulin [Mass ratio] 1.1 {ratio} 0.9-2.4 [facility] Serum or plasma calcium blessing urement (mass/volume)Ordered By: Stephanie Orta on 11-30-2022 Calcium [Mass/Vol] 9.2 mg/dL 8.5-10.1 [facility] Serum or plasma creatinine m easurement (mass/volume)Ordered By: Stephanie Orta on 11-30-2022 Creatinine [Mass/Vol] 1.05 mg/dL 0.55-1.02 [place] Comment on above: The validity of the calculated GFR & GFRAA in patients over 70 years has not been determined. Clinical correlation is essential. Serum or plasma urea nitroge n measurement (mass/volume)Ordered By: Stephanie Orta on 11-30-2022 Urea nitrogen [Mass/Vol] 23 mg/dL 7-18 [facility] Thin prep Papanicolaou smear with manual screeningOrdered By: Stephanie Orta on 11-30-2022 Thin prep Papanicolaou smear with manual screening 26 U/L 15-37 [facility] Thin prep Papanicolaou smear with manual screening 5 5-15 [facility] Absolute lymphocyte countOrd ered By: Dr. Orta on 09-02-2022 Lymphocytes Auto (Unsp spec) [#/Vol] 2.64 10*3/uL 0.83-4.51 [facility] Basophil percentageOrdered B y: Dr. Orta on 09-02-2022 Basophils/100 WBC (Bld) 0.7 % 0-1 [facility] Bilirubin [Mass/Vol] 0.40 mg/dL 0.20-1.00 [facility] Comment on above: For patients on eltr ombopag therapy, use of Dimension [place] TBIL is not recommended. Chloride [Moles/Vol] 107 mmol/L 98-107 [facility] Eosinophils/100 WBC (Bld) 1.0 % 0-5 [facility] Glucose [Mass/Vol] 104 mg/dL 74-106 [facility] Comment on above: Fasting Glucose resu lt from 100 to 125 mg/dL suggests IMPAIRED HOMEOSTASIS per A.D.A. criteria. Neutrophils (Bld) [#/Vol] 3.9 10*3/uL 2.0-7.7 [facility] Neutrophils/100 WBC (Bld) 53.3 % 47-70 [facility] Potassium [Moles/Vol] 3.8 mmol/L 3.5-5.1 [place] Protein [Mass/Vol] 7.7 g/dL 6.4-8.2 [facility] Sodium [Moles/Vol] 138 mmol/L 136-145 [facility] WBC (Bld) [#/Vol] 7.3 10*3/uL 4.4-11.0 [facility] Blood erythrocytes count (nu mber/volume)Ordered By: Dr. Orta on 09-02-2022 RBC (Bld) [#/Vol] 4.41 10*6/uL 4.2-5.[address] [facility] Blood hemoglobin measurement (mass/volume)Ordered By: Dr. Orta on 09-02-2022 Hemoglobin (Bld) [Mass/Vol] 13.5 g/dL 12.0-15.0 [facility] Blood lymphocytes/100 leukoc ytesOrdered By: Dr. Orta on 09-02-2022 Lymphocytes/100 WBC (Bld) 36.1 % 19-41 [facility] Blood monocytes/100 leukocyt esOrdered By: Dr. Orta on 09-02-2022 Monocytes/100 WBC (Bld) 8.6 % 0-10 [facility] Blood platelet mean volumeOr dered By: Dr. Orta on 09-02-2022 Platelet mean volume (Bld) [Entitic vol] 11.6 fL 6.2-12.0 [facility] Determination of erythrocyte mean corpuscular volume (MCV)Ordered By: Dr. Orta on 09-02-2022 MCV (RBC) [Entitic vol] 95.0 fL 81-99 [facility] Hematocrit Auto (Bld) [Volum e fraction]Ordered By: Dr. Orta on 09-02-2022 Hematocrit (Bld) [Volume fraction] 41.9 % 37-47 [facility] Laboratory - Chemistry and C hemistry - challengeOrdered By: Dr. Orta on 09-02-2022 ALP [Catalytic activity/Vol] 61 U/L 45-117 [facility] ALT [Catalytic activity/Vol] 43 U/L 13-56 [facility] CO2 [Moles/Vol] 28.0 mmol/L 21.0-32.0 [facility] Globulin (S) [Mass/Vol] 3.8 g/dL 2.2-4.2 [facility] Urea nitrogen/Creatinine [Mass ratio] 25.6 mg/mg 10-20 [facility] Laboratory - Hematology and Cell countsOrdered By: Dr. Orta on 09-02-2022 Erythrocyte distribution width (RBC) [Entitic vol] 47.9 fL 35.1-43.9 [facility] Erythrocyte distribution width (RBC) [Ratio] 13.7 % 11.6-14.6 [facility] Immature granulocytes/100 WBC (Bld) 0.300 % 0.0-0.9 [facility] Comment on above: IG% - Immature Granu locytes (promyelocytes, myelocytes and metamyelocytes) > 1% indicates that a LEFT SHIFT is Present. MCH (RBC) [Entitic mass] 30.6 pg 27.0-32.0 [facility] Nucleated RBC/100 WBC (Bld) [Ratio] 0 % 0-5 [facility] MCHC Auto (RBC) [Mass/Vol]Or dered By: Dr. Orta on 09-02-2022 MCHC (RBC) [Mass/Vol] 32.2 g/dL 32-36 [place] No Panel InformationOrdered By: Dr. Orta on 09-02-2022 Estimated GFR (MDRD) Amer 95 mL/min >60 [facility] Comment on above: GFR Calc Estimated GFR (MDRD) Non-Af Amer 78 mL/min >60 [facility] Comment on above: Non- GFR Calc Platelets bldOrdered By: Dr. Orta on 09-02-2022 Platelets (Bld) [#/Vol] 154 10*3/uL 150-450 [facility] Serum or plasma albumin blessing urement (mass/volume)Ordered By: Dr. Orta on 09-02-2022 Albumin [Mass/Vol] 3.9 g/dL 3.2-5.0 [facility] Serum or plasma albumin/glob ulin mass ratioOrdered By: Dr. Orta on 09-02-2022 Albumin/Globulin [Mass ratio] 1.0 {ratio} 0.9-2.4 [facility] Serum or plasma calcium blessing urement (mass/volume)Ordered By: Dr. Orta on 09-02-2022 Calcium [Mass/Vol] 9.5 mg/dL 8.5-10.1 [facility] Serum or plasma creatinine m easurement (mass/volume)Ordered By: Dr. Orta on 09-02-2022 Creatinine [Mass/Vol] 0.78 mg/dL 0.55-1.02 [place] Comment on above: The validity of the calculated GFR & GFRAA in patients over 70 years has not been determined. Clinical correlation is essential. Serum or plasma urea nitroge n measurement (mass/volume)Ordered By: Dr. Orta on 09-02-2022 Urea nitrogen [Mass/Vol] 20 mg/dL 7-18 [facility] Thin prep Papanicolaou smear with manual screeningOrdered By: Dr. Orta on 09-02-2022 Thin prep Papanicolaou smear with manual screening 26 U/L 15-37 [facility] Thin prep Papanicolaou smear with manual screening 3 5-15 [facility] Absolute lymphocyte countOrd ered By: Dr. Young on 06-18-2022 Lymphocytes Auto (Unsp spec) [#/Vol] 2.47 10*3/uL 0.83-4.51 [facility] Basophil percentageOrdered B y: Dr. Young on 06-18-2022 Basophils/100 WBC (Bld) 0.7 % 0-1 [facility] Eosinophils/100 WBC (Bld) 0.9 % 0-5 [facility] Neutrophils (Bld) [#/Vol] 4.4 10*3/uL 2.0-7.7 [facility] Neutrophils/100 WBC (Bld) 57.7 % 47-70 [facility] WBC (Bld) [#/Vol] 7.6 10*3/uL 4.4-11.0 [facility] Bilirubin [Mass/Vol] 0.30 mg/dL 0.20-1.00 [facility] Comment on above: For patients on eltr ombopag therapy, use of Dimension [place] TBIL is not recommended. Chloride [Moles/Vol] 107 mmol/L 98-107 [facility] Glucose [Mass/Vol] 101 mg/dL 74-106 [facility] Comment on above: Fasting Glucose resu lt from 100 to 125 mg/dL suggests IMPAIRED HOMEOSTASIS per A.D.A. criteria. Potassium [Moles/Vol] 4.0 mmol/L 3.5-5.1 [place] Protein [Mass/Vol] 7.5 g/dL 6.4-8.2 [facility] Sodium [Moles/Vol] 142 mmol/L 136-145 [facility] Blood erythrocytes count (nu mber/volume)Ordered By: Dr. Young on 06-18-2022 RBC (Bld) [#/Vol] 4.40 10*6/uL 4.2-5.[address] [facility] Blood hemoglobin measurement (mass/volume)Ordered By: Dr. Young on 06-18-2022 Hemoglobin (Bld) [Mass/Vol] 13.3 g/dL 12.0-15.0 [facility] Blood lymphocytes/100 leukoc ytesOrdered By: Dr. Young on 06-18-2022 Lymphocytes/100 WBC (Bld) 32.4 % 19-41 [facility] Blood monocytes/100 leukocyt esOrdered By: Dr. Young on 06-18-2022 Monocytes/100 WBC (Bld) 7.9 % 0-10 [facility] Blood platelet mean volumeOr dered By: Dr. Young on 06-18-2022 Platelet mean volume (Bld) [Entitic vol] 11.3 fL 6.2-12.0 [facility] Determination of erythrocyte mean corpuscular volume (MCV)Ordered By: Dr. Young on 06-18-2022 MCV (RBC) [Entitic vol] 95.0 fL 81-99 [facility] Hematocrit Auto (Bld) [Volum e fraction]Ordered By: Dr. Young on 06-18-2022 Hematocrit (Bld) [Volume fraction] 41.8 % 37-47 [facility] Laboratory - Chemistry and C hemistry - challengeOrdered By: Dr. Young on 06-18-2022 ALP [Catalytic activity/Vol] 50 U/L 45-117 [facility] ALT [Catalytic activity/Vol] 31 U/L 13-56 [facility] CO2 [Moles/Vol] 27.0 mmol/L 21.0-32.0 [facility] Globulin (S) [Mass/Vol] 3.6 g/dL 2.2-4.2 [facility] Urea nitrogen/Creatinine [Mass ratio] 20.1 mg/mg 10-20 [facility] Laboratory - Hematology and Cell countsOrdered By: Dr. Young on 06-18-2022 Erythrocyte distribution width (RBC) [Entitic vol] 48.5 fL 35.1-43.9 [facility] Erythrocyte distribution width (RBC) [Ratio] 13.9 % 11.6-14.6 [facility] Immature granulocytes/100 WBC (Bld) 0.400 % 0.0-0.9 [facility] Comment on above: IG% - Immature Granu locytes (promyelocytes, myelocytes and metamyelocytes) > 1% indicates that a LEFT SHIFT is Present. MCH (RBC) [Entitic mass] 30.2 pg 27.0-32.0 [facility] Nucleated RBC/100 WBC (Bld) [Ratio] 0 % 0-5 [facility] MCHC Auto (RBC) [Mass/Vol]Or dered By: Dr. Young on 06-18-2022 MCHC (RBC) [Mass/Vol] 31.8 g/dL 32-36 [place] No Panel InformationOrdered By: Dr. Young on 06-18-2022 Estimated GFR (MDRD) Amer 72 mL/min >60 [facility] Comment on above: GFR Calc Estimated GFR (MDRD) Non-Af Amer 59 mL/min >60 [facility] Comment on above: Non- GFR Calc Vitamin D 25-Hydroxy 104.3 ng/mL [place] Comment on above: Vitamin D 25(OH) Sta [...] 06-18-2022 Platelets (Bld) [#/Vol] 159 10*3/uL 150-450 [facility] Serum or plasma albumin blessing urement (mass/volume)Ordered By: Dr. Young on 06-18-2022 Albumin [Mass/Vol] 3.9 g/dL 3.2-5.0 [facility] Serum or plasma albumin/glob ulin mass ratioOrdered By: Dr. Young on 06-18-2022 Albumin/Globulin [Mass ratio] 1.1 {ratio} 0.9-2.4 [facility] Serum or plasma calcium blessing urement (mass/volume)Ordered By: Dr. Young on 06-18-2022 Calcium [Mass/Vol] 9.1 mg/dL 8.5-10.1 [facility] Serum or plasma creatinine m easurement (mass/volume)Ordered By: Dr. Young on 06-18-2022 Creatinine [Mass/Vol] 0.99 mg/dL 0.55-1.02 [place] Comment on above: The validity of the calculated GFR & GFRAA in patients over 70 years has not been determined. Clinical correlation is essential. Serum or plasma urea nitroge n measurement (mass/volume)Ordered By: Dr. Young on 06-18-2022 Urea nitrogen [Mass/Vol] 20 mg/dL 7-18 [facility] Thin prep Papanicolaou smear with manual screeningOrdered By: Dr. Young on 06-18-2022 Thin prep Papanicolaou smear with manual screening 20 U/L 15-37 [facility] Thin prep Papanicolaou smear with manual screening 8 5-15 [facility] Absolute lymphocyte countOrd ered By: Dr. Orta on 03-29-2022 Lymphocytes Auto (Unsp spec) [#/Vol] 1.87 10*3/uL 0.83-4.51 [facility] Basophil percentageOrdered B y: Dr. Orta on 03-29-2022 Basophils/100 WBC (Bld) 0.7 % 0-1 [facility] Bilirubin [Mass/Vol] 0.40 mg/dL 0.20-1.00 [facility] Comment on above: For patients on eltr ombopag therapy, use of Dimension [place] TBIL is not recommended. Chloride [Moles/Vol] 105 mmol/L 98-107 [facility] Eosinophils/100 WBC (Bld) 0.4 % 0-5 [facility] Glucose [Mass/Vol] 86 mg/dL 74-106 [facility] Neutrophils (Bld) [#/Vol] 4.9 10*3/uL 2.0-7.7 [facility] Neutrophils/100 WBC (Bld) 65.5 % 47-70 [facility] Potassium [Moles/Vol] 3.8 mmol/L 3.5-5.1 [place] Protein [Mass/Vol] 7.5 g/dL 6.4-8.2 [facility] Sodium [Moles/Vol] 139 mmol/L 136-145 [facility] WBC (Bld) [#/Vol] 7.4 10*3/uL 4.4-11.0 [facility] Blood erythrocytes count (nu mber/volume)Ordered By: Dr. Orta on 03-29-2022 RBC (Bld) [#/Vol] 4.51 10*6/uL 4.2-5.[address] [facility] Blood hemoglobin measurement (mass/volume)Ordered By: Dr. Orta on 03-29-2022 Hemoglobin (Bld) [Mass/Vol] 13.9 g/dL 12.0-15.0 [facility] Blood lymphocytes/100 leukoc ytesOrdered By: Dr. Orta on 03-29-2022 Lymphocytes/100 WBC (Bld) 25.2 % 19-41 [facility] Blood monocytes/100 leukocyt esOrdered By: Dr. Orta on 03-29-2022 Monocytes/100 WBC (Bld) 8.1 % 0-10 [facility] Blood platelet mean volumeOr dered By: Dr. Orta on 03-29-2022 Platelet mean volume (Bld) [Entitic vol] 11.0 fL 6.2-12.0 [facility] Determination of erythrocyte mean corpuscular volume (MCV)Ordered By: Dr. Orta on 03-29-2022 MCV (RBC) [Entitic vol] 93.8 fL 81-99 [facility] Hematocrit Auto (Bld) [Volum e fraction]Ordered By: Dr. Orta on 03-29-2022 Hematocrit (Bld) [Volume fraction] 42.3 % 37-47 [facility] Laboratory - Chemistry and C hemistry - challengeOrdered By: Dr. Orta on 03-29-2022 ALP [Catalytic activity/Vol] 51 U/L 45-117 [facility] ALT [Catalytic activity/Vol] 29 U/L 13-56 [facility] CO2 [Moles/Vol] 26.0 mmol/L 21.0-32.0 [facility] Globulin (S) [Mass/Vol] 3.6 g/dL 2.2-4.2 [facility] Urea nitrogen/Creatinine [Mass ratio] 28.0 mg/mg 10-20 [facility] Laboratory - Hematology and Cell countsOrdered By: Dr. Orta on 03-29-2022 Erythrocyte distribution width (RBC) [Entitic vol] 46.5 fL 35.1-43.9 [facility] Erythrocyte distribution width (RBC) [Ratio] 13.5 % 11.6-14.6 [facility] Immature granulocytes/100 WBC (Bld) 0.100 % 0.0-0.9 [facility] Comment on above: IG% - Immature Granu locytes (promyelocytes, myelocytes and metamyelocytes) > 1% indicates that a LEFT SHIFT is Present. MCH (RBC) [Entitic mass] 30.8 pg 27.0-32.0 [facility] Nucleated RBC/100 WBC (Bld) [Ratio] 0 % 0-5 [facility] MCHC Auto (RBC) [Mass/Vol]Or dered By: Dr. Orta on 03-29-2022 MCHC (RBC) [Mass/Vol] 32.9 g/dL 32-36 [place] No Panel InformationOrdered By: Dr. Orta on 03-29-2022 Estimated GFR (MDRD) Amer 99 mL/min >60 [facility] Comment on above: GFR Calc Estimated GFR (MDRD) Non-Af Amer 82 mL/min >60 [facility] Comment on above: Non- GFR Calc Platelets bldOrdered By: Dr. Orta on 03-29-2022 Platelets (Bld) [#/Vol] 146 10*3/uL 150-450 [facility] Serum or plasma albumin blessing urement (mass/volume)Ordered By: Dr. Orta on 03-29-2022 Albumin [Mass/Vol] 3.9 g/dL 3.2-5.0 [facility] Serum or plasma albumin/glob ulin mass ratioOrdered By: Dr. Orta on 03-29-2022 Albumin/Globulin [Mass ratio] 1.1 {ratio} 0.9-2.4 [facility] Serum or plasma calcium blessing urement (mass/volume)Ordered By: Dr. Orta on 03-29-2022 Calcium [Mass/Vol] 9.4 mg/dL 8.5-10.1 [facility] Serum or plasma creatinine m easurement (mass/volume)Ordered By: Dr. Orta on 03-29-2022 Creatinine [Mass/Vol] 0.75 mg/dL 0.55-1.02 [place] Comment on above: The validity of the calculated GFR & GFRAA in patients over 70 years has not been determined. Clinical correlation is essential. Serum or plasma urea nitroge n measurement (mass/volume)Ordered By: Dr. Orta on 03-29-2022 Urea nitrogen [Mass/Vol] 21 mg/dL 7-18 [facility] Thin prep Papanicolaou smear with manual screeningOrdered By: Dr. Orta on 03-29-2022 Thin prep Papanicolaou smear with manual screening 21 U/L 15-37 [facility] Thin prep Papanicolaou smear with manual screening 8 5-15 [facility] Absolute lymphocyte counton 01-04-2022 Lymphocytes Auto (Unsp spec) [#/Vol] 1.98 10*3/uL 0.83-4.51 [facility] Work Phone: Basophil percentageon 2021 Basophils/100 WBC (Bld) 0.6 % 0-1 [facility] Work Phone: Bilirubin [Mass/Vol] 0.40 mg/dL 0.20-1.00 [facility] Work Phone: Comment on above: For patients on eltr ombopag therapy, use of Dimension [place] TBIL is not recommended. Chloride [Moles/Vol] 107 mmol/L 98-107 [facility] Work Phone: Eosinophils/100 WBC (Bld) 1.7 % 0-5 [facility] Work Phone: Glucose [Mass/Vol] 89 mg/dL 74-106 [facility] Work Phone: Neutrophils (Bld) [#/Vol] 4.2 10*3/uL 2.0-7.7 [facility] Work Phone: Neutrophils/100 WBC (Bld) 59.8 % 47-70 [facility] Work Phone: Potassium [Moles/Vol] 3.8 mmol/L 3.5-5.1 [facility] Work Phone: Protein [Mass/Vol] 7.2 g/dL 6.4-8.2 [facility] Work Phone: Sodium [Moles/Vol] 140 mmol/L 136-145 [facility] Work Phone: WBC (Bld) [#/Vol] 7.0 10*3/uL 4.4-11.0 [facility] Work Phone: Blood erythrocytes count (nu mber/volume)on 01-04-2022 RBC (Bld) [#/Vol] 4.21 10*6/uL 4.2-5.4 [facility] Work Phone: Blood hemoglobin measurement (mass/volume)on 01-04-2022 Hemoglobin (Bld) [Mass/Vol] 13.0 g/dL 12.0-15.0 [facility] Work Phone: Blood lymphocytes/100 leukoc yteson 01-04-2022 Lymphocytes/100 WBC (Bld) 28.4 % 19-41 [facility] Work Phone: Blood monocytes/100 leukocyt eson 01-04-2022 Monocytes/100 WBC (Bld) 9.2 % 0-10 [facility] Work Phone: Blood platelet mean volumeon 01-04-2022 Platelet mean volume (Bld) [Entitic vol] 11.3 fL 6.2-12.0 [facility] Work Phone: Determination of erythrocyte mean corpuscular volume (MCV)on 01-04-2022 MCV (RBC) [Entitic vol] 93.6 fL 81-99 [facility] Work Phone: Hematocrit Auto (Bld) [Volum e fraction]on 01-04-2022 Hematocrit (Bld) [Volume fraction] 39.4 % 37-47 [facility] Work Phone: Laboratory - Chemistry and C hemistry - challengeon 01-04-2022 ALP [Catalytic activity/Vol] 57 U/L 45-117 [facility] Work Phone: ALT [Catalytic activity/Vol] 24 U/L 13-56 [facility] Work Phone: CO2 [Moles/Vol] 27.0 mmol/L 21.0-32.0 [facility] Work Phone: Globulin (S) [Mass/Vol] 3.6 g/dL 2.2-4.2 [facility] Work Phone: Urea nitrogen/Creatinine [Mass ratio] 17.6 mg/mg 10-20 [facility] Work Phone: Laboratory - Hematology and Cell countson 01-04-2022 Erythrocyte distribution width (RBC) [Entitic vol] 46.8 fL 35.1-43.9 [facility] Work Phone: Erythrocyte distribution width (RBC) [Ratio] 13.8 % 11.6-14.6 [facility] Work Phone: Immature granulocytes/100 WBC (Bld) 0.300 % 0.0-0.9 [facility] Work Phone: Comment on above: IG% - Immature Granu locytes (promyelocytes, myelocytes and metamyelocytes) > 1% indicates that a LEFT SHIFT is Present. MCH (RBC) [Entitic mass] 30.9 pg 27.0-32.0 [facility] Work Phone: Nucleated RBC/100 WBC (Bld) [Ratio] 0 % 0-5 [facility] Work Phone: MCHC Auto (RBC) [Mass/Vol]on 01-04-2022 MCHC (RBC) [Mass/Vol] 33.0 g/dL 32-36 [place] Work Phone: No Panel Informationon 01-04 Estimated GFR (MDRD) Amer 101 mL/min >60 [facility] Work Phone: Comment on above: GFR Calc Estimated GFR (MDRD) Non-Af Amer 84 mL/min >60 [facility] Work Phone: Comment on above: Non- GFR Calc Platelets bldon 01-04-2022 Platelets (Bld) [#/Vol] 165 10*3/uL 150-450 [facility] Work Phone: Serum or plasma albumin blessing urement (mass/volume)on 01-04-2022 Albumin [Mass/Vol] 3.6 g/dL 3.2-5.0 [facility] Work Phone: Serum or plasma albumin/glob ulin mass ratioon 01-04-2022 Albumin/Globulin [Mass ratio] 1.0 {ratio} 0.9-2.4 [facility] Work Phone: Serum or plasma calcium blessing urement (mass/volume)on 01-04-2022 Calcium [Mass/Vol] 8.7 mg/dL 8.5-10.1 [facility] Work Phone: Serum or plasma creatinine m easurement (mass/volume)on 01-04-2022 Creatinine [Mass/Vol] 0.74 mg/dL 0.55-1.02 [place] Work Phone: Comment on above: The validity of the calculated GFR & GFRAA in patients over 70 years has not been determined. Clinical correlation is essential. Serum or plasma urea nitroge n measurement (mass/volume)on 01-04-2022 Urea nitrogen [Mass/Vol] 13 mg/dL 7-18 [facility] Work Phone: Thin prep Papanicolaou smear with manual screeningon 01-04-2022 Thin prep Papanicolaou smear with manual screening 18 U/L 15-37 [facility] Work Phone: Thin prep Papanicolaou smear with manual screening 6 5-15 [facility] Work Phone: Laboratory - Chemistry and C hemistry - challengeon 11-25-2021 Free T4 [Mass/Vol] 0.95 ng/dL 0.76-1.46 [facility] Work Phone: No Panel Informationon 11-25 Thyroid Stimulating Hormone (TSH) 0.57 uIU/mL 0.358-3.74 [facility] Work Phone: Vitamin D 25-Hydroxy 86.2 ng/mL [facility] Work Phone: Comment on above: Vitamin D 25(OH) Sta tus Range Deficiency <20 ng/mL (50nmol/L) Insufficiency 20 - 30 ng/mL (50 - 75 nmol/L) Sufficiency 30 - 100 ng/mL (75 - 250 nmol/L) Toxicity >100 ng/mL (>250 nmol/L) Absolute lymphocyte counton 10-02-2021 Lymphocytes Auto (Unsp spec) [#/Vol] 2.22 10*3/uL 0.83-4.51 [facility] Work Phone: Basophil percentageon 2021 Basophils/100 WBC (Bld) 0.6 % 0-1 [facility] Work Phone: Bilirubin [Mass/Vol] 0.30 mg/dL 0.20-1.00 [facility] Work Phone: Comment on above: For patients on eltr ombopag therapy, use of Dimension [place] TBIL is not recommended. Chloride [Moles/Vol] 109 mmol/L 98-107 [facility] Work Phone: Eosinophils/100 WBC (Bld) 1.3 % 0-5 [facility] Work Phone: Glucose [Mass/Vol] 100 mg/dL 74-106 [facility] Work Phone: Comment on above: Fasting Glucose resu lt from 100 to 125 mg/dL suggests IMPAIRED HOMEOSTASIS per A.D.A. criteria. Neutrophils (Bld) [#/Vol] 3.9 10*3/uL 2.0-7.7 [facility] Work Phone: Neutrophils/100 WBC (Bld) 56.4 % 47-70 [facility] Work Phone: Potassium [Moles/Vol] 4.0 mmol/L 3.5-5.1 [facility] Work Phone: Protein [Mass/Vol] 7.2 g/dL 6.4-8.2 [facility] Work [facility]: Sodium [Moles/Vol] 140 mmol/L 136-145 [facility] Work Phone: WBC (Bld) [#/Vol] 6.9 10*3/uL 4.4-11.0 [facility] Work Phone: Blood erythrocytes count (nu mber/volume)on 10-02-2021 RBC (Bld) [#/Vol] 4.21 10*6/uL [facility].2-5.[facility]: Blood hemoglobin measurement (mass/volume)on 10-02-2021 Hemoglobin (Bld) [Mass/Vol] 13.1 g/dL 12.0-15.0 [facility] Work Phone: Blood lymphocytes/100 leukoc yteson 10-02-2021 Lymphocytes/100 WBC (Bld) 32.2 % 19-41 [facility] Work Phone: Blood monocytes/100 leukocyt eson 10-02-2021 Monocytes/100 WBC (Bld) 9.1 % 0-10 [facility] Work Phone: Blood platelet mean volumeon 10-02-2021 Platelet mean volume (Bld) [Entitic vol] 10.7 fL 6.2-12.0 [facility] Work Phone: Determination of erythrocyte mean corpuscular volume (MCV)on 10-02-2021 MCV (RBC) [Entitic vol] 96.4 fL 81-99 [facility] Work Phone: Hematocrit Auto (Bld) [Volum e fraction]on 10-02-2021 Hematocrit (Bld) [Volume fraction] 40.6 % 37-47 [facility] Work Phone: Laboratory - Chemistry and C hemistry - challengeon 10-02-2021 ALP [Catalytic activity/Vol] 59 U/L 45-117 [facility] Work Phone: ALT [Catalytic activity/Vol] 26 U/L 13-56 [facility] Work Phone: CO2 [Moles/Vol] 26.0 mmol/L 21.0-32.0 [facility] Work Phone: Globulin (S) [Mass/Vol] 3.4 g/dL 2.2-4.2 [facility] Work Phone: Urea nitrogen/Creatinine [Mass ratio] 25.5 mg/mg 10-20 [facility] Work Phone: Laboratory - Hematology and Cell countson 10-02-2021 Erythrocyte distribution width (RBC) [Entitic vol] 47.5 fL 35.1-43.9 [facility] Work Phone: Erythrocyte distribution width (RBC) [Ratio] 13.4 % 11.6-14.6 [facility] Work Phone: Immature granulocytes/100 WBC (Bld) 0.400 % 0.0-0.9 [facility] Work Phone: Comment on above: IG% - Immature Granu locytes (promyelocytes, myelocytes and metamyelocytes) > 1% indicates that a LEFT SHIFT is Present. MCH (RBC) [Entitic mass] 31.1 pg 27.0-32.0 [facility] Work Phone: Nucleated RBC/100 WBC (Bld) [Ratio] 0 % 0-5 [facility] Work Phone: MCHC Auto (RBC) [Mass/Vol]on 10-02-2021 MCHC (RBC) [Mass/Vol] 32.3 g/dL 32-36 [facility] Work [facility]: No Panel Informationon 10-02 Estimated GFR (MDRD) Amer 94 mL/min >60 [facility] Work Phone: Comment on above: GFR Calc Estimated GFR (MDRD) Non-Af Amer 78 mL/min >60 [facility] Work Phone: Comment on above: Non- GFR Calc Platelets bldon 10-02-2021 Platelets (Bld) [#/Vol] 159 10*3/uL 150-450 [facility] Work Phone: Serum or plasma albumin blessing urement (mass/volume)on 10-02-2021 Albumin [Mass/Vol] 3.8 g/dL 3.2-5.0 [facility] Work Phone: Serum or plasma albumin/glob ulin mass ratioon 10-02-2021 Albumin/Globulin [Mass ratio] 1.1 {ratio} 0.9-2.4 [facility] Work Phone: Serum or plasma calcium blessing urement (mass/volume)on 10-02-2021 Calcium [Mass/Vol] 8.5 mg/dL 8.5-10.1 [facility] Work Phone: Serum or plasma creatinine m easurement (mass/volume)on 10-02-2021 Creatinine [Mass/Vol] 0.78 mg/dL 0.55-1.02 [place] Work Phone: Comment on above: The validity of the calculated GFR & GFRAA in patients over 70 years has not been determined. Clinical correlation is essential. Serum or plasma urea nitroge n measurement (mass/volume)on 10-02-2021 Urea nitrogen [Mass/Vol] 20 mg/dL 7-18 [facility] Work Phone: Thin prep Papanicolaou smear with manual screeningon 10-02-2021 Thin prep Papanicolaou smear with manual screening 20 U/L 15-37 [facility] Work Phone: Thin prep Papanicolaou smear with manual screening 5 5-15 [facility] Work Phone: Absolute lymphocyte counton 07-03-2021 Lymphocytes Auto (Unsp spec) [#/Vol] 2.30 10*3/uL 0.83-4.51 [facility] Work Phone: Basophil percentageon 2021 Basophils/100 WBC (Bld) 0.6 % 0-1 [facility] Work Phone: Bilirubin [Mass/Vol] 0.30 mg/dL 0.20-1.00 [facility] Work Phone: Comment on above: For patients on eltr ombopag therapy, use of Dimension [place] TBIL is not recommended. Chloride [Moles/Vol] 110 mmol/L 98-107 [facility] Work Phone: Eosinophils/100 WBC (Bld) 2.1 % 0-5 [facility] Work Phone: Glucose [Mass/Vol] 111 mg/dL 74-106 [facility] Work Phone: Comment on above: Fasting Glucose resu lt from 100 to 125 mg/dL suggests IMPAIRED HOMEOSTASIS per A.D.A. criteria. Neutrophils (Bld) [#/Vol] 5.3 10*3/uL 2.0-7.7 [facility] Work Phone: Neutrophils/100 WBC (Bld) 61.4 % 47-70 [facility] Work Phone: Potassium [Moles/Vol] 3.5 mmol/L 3.5-5.1 [place] Work Phone: Protein [Mass/Vol] 7.1 g/dL 6.4-8.2 [facility] Work Phone: Sodium [Moles/Vol] 142 mmol/L 136-145 [facility] Work Phone: WBC (Bld) [#/Vol] 8.6 10*3/uL 4.4-11.0 [facility] Work Phone: Blood erythrocytes count (nu mber/volume)on 07-03-2021 RBC (Bld) [#/Vol] 4.27 10*6/uL 4.2-5.[address] [facility] Work Phone: Blood hemoglobin measurement (mass/volume)on 07-03-2021 Hemoglobin (Bld) [Mass/Vol] 13.4 g/dL 12.0-15.0 [facility] Work Phone: Blood lymphocytes/100 leukoc yteson 07-03-2021 Lymphocytes/100 WBC (Bld) 26.7 % 19-41 [facility] Work Phone: Blood monocytes/100 leukocyt eson 07-03-2021 Monocytes/100 WBC (Bld) 8.9 % 0-10 [facility] Work Phone: Blood platelet mean volumeon 07-03-2021 Platelet mean volume (Bld) [Entitic vol] 10.6 fL 6.2-12.0 [facility] Work Phone: Determination of erythrocyte mean corpuscular volume (MCV)on 07-03-2021 MCV (RBC) [Entitic vol] 95.8 fL 81-99 [facility] Work Phone: Hematocrit Auto (Bld) [Volum e fraction]on 07-03-2021 Hematocrit (Bld) [Volume fraction] 40.9 % 37-47 [facility] Work Phone: Laboratory - Chemistry and C hemistry - challengeon 07-03-2021 ALP [Catalytic activity/Vol] 72 U/L 45-117 [facility] Work Phone: ALT [Catalytic activity/Vol] 23 U/L 13-56 [facility] Work Phone: CO2 [Moles/Vol] 28.0 mmol/L 21.0-32.0 [facility] Work Phone: Globulin (S) [Mass/Vol] 3.5 g/dL 2.2-4.2 [facility] Work Phone: Urea nitrogen/Creatinine [Mass ratio] 24.0 mg/mg 10-20 [facility] Work Phone: Laboratory - Hematology and Cell countson 07-03-2021 Erythrocyte distribution width (RBC) [Entitic vol] 49.5 fL 35.1-43.9 [facility] Work Phone: Erythrocyte distribution width (RBC) [Ratio] 14.3 % 11.6-14.6 [facility] Work Phone: Immature granulocytes/100 WBC (Bld) 0.300 % 0.0-0.9 [facility] Work Phone: Comment on above: IG% - Immature Granu locytes (promyelocytes, myelocytes and metamyelocytes) > 1% indicates that a LEFT SHIFT is Present. MCH (RBC) [Entitic mass] 31.4 pg 27.0-32.0 [facility] Work Phone: Nucleated RBC/100 WBC (Bld) [Ratio] 0 % 0-5 [facility] Work Phone: MCHC Auto (RBC) [Mass/Vol]on 07-03-2021 MCHC (RBC) [Mass/Vol] 32.8 g/dL 32-36 [place] Work Phone: No Panel Informationon 07-03 Estimated GFR (MDRD) Amer 71 mL/min >60 [facility] Work Phone: Comment on above: GFR Calc Estimated GFR (MDRD) Non-Af Amer 59 mL/min >60 [facility] Work Phone: Comment on above: Non- GFR Calc Platelets bldon 07-03-2021 Platelets (Bld) [#/Vol] 158 10*3/uL 150-450 [facility] Work Phone: Serum or plasma albumin blessing urement (mass/volume)on 07-03-2021 Albumin [Mass/Vol] 3.6 g/dL 3.2-5.0 [facility] Work Phone: Serum or plasma albumin/glob ulin mass ratioon 07-03-2021 Albumin/Globulin [Mass ratio] 1.0 {ratio} 0.9-2.4 [facility] Work Phone: Serum or plasma calcium blessing urement (mass/volume)on 07-03-2021 Calcium [Mass/Vol] 9.2 mg/dL 8.5-10.1 [facility] Work Phone: Serum or plasma creatinine m easurement (mass/volume)on 07-03-2021 Creatinine [Mass/Vol] 1.00 mg/dL 0.55-1.02 [place] Work Phone: Comment on above: The validity of the calculated GFR & GFRAA in patients over 70 years has not been determined. Clinical correlation is essential. Serum or plasma urea nitroge n measurement (mass/volume)on 07-03-2021 Urea nitrogen [Mass/Vol] 24 mg/dL 7-18 [facility] Work Phone: Thin prep Papanicolaou smear with manual screeningon 07-03-2021 Thin prep Papanicolaou smear with manual screening 16 U/L 15-37 [facility] Work Phone: Thin prep Papanicolaou smear with manual screening 4 5-15 [facility] Work Phone: Office Visit: Med Checkon Documentation of current medications (procedure) Done Invalid Interpretation Code [facility] Fall risk assessment No Invalid Interpretation Code [facility] Tobacco smoking status [facility] Never Invalid Interpretation Code [facility] Tobacco use [facility] Never smoker Invalid Interpretation Code [facility] Office Visit: vaginal painon 02-09-2017 Documentation of current medications (procedure) Done Invalid Interpretation Code [place] [employer] Work Phone: Protein mass conc Done Invalid Interpretation Code [facility] Tobacco smoking status NHIS Never Invalid Interpretation Code [facility] Tobacco smoking status KYIS Never smoker Invalid Interpretation Code [facility] Tobacco use [facility] Never smoker Invalid Interpretation Code [place] [facility] Work Phone: Replaced Document: (P) HSV C ulture Screenon 01-24-2017 GE use only - for LinkLogic import when terms are not otherwise specified Negative Invalid Interpretation Code . [facility] HSV CULTURE Negative Invalid Interpretation Code . [facility] Lab Report: HSV 1 AND 2 IgGo n 01-21-2017 GE use only - for [employer] import when terms are not otherwise specified < 0.91 index Invalid Interpretation Code 0.00-0.90 [facility] Office Visit: sore on vagina on 01-20-2017 Documentation of current medications (procedure) Done Invalid Interpretation Code [facility] Fall risk assessment No Invalid Interpretation Code [facility] Protein mass conc Done [facility] Tobacco smoking status NHIS Never [facility] Tobacco smoking status NHIS Never smoker [facility] Tobacco use [facility] Never smoker Invalid Interpretation Code [facility] Lab Report: Basic Metabolic Profile (BMP)on 10-11-2016 Anion gap 11 mmol/L Invalid Interpretation Code 5-15 [employer] Work Phone: Anion gap 4 molar conc 11 Invalid Interpretation Code -15 [facility] Anion gap molar conc 11 mmol/L 5-15 [facility] Work Phone: BUN/Creatinine Ratio 21.5 RATIO High 10-20 [employer] Work Phone: Calcium 8.9 mg/dL Invalid Interpretation Code 8.5-10.1 [employer] Work Phone: Chloride 105 mmol/L Invalid Interpretation Code 98-107 [employer] Work Phone: CO2 27.0 mmol/L Invalid Interpretation Code 21.0-32.0 [employer] Work Phone: CO2 ppres (BldV) 27.0 mmol/L Invalid Interpretation Code 21.0-32.0 [employer] Work Phone: Creatinine 76.60 mL/min Invalid Interpretation Code [employer] Work Phone: Creatinine 0.74 mg/dL Invalid Interpretation Code 0.55-1.02 [employer] Work Phone: eGFR (non-black) 102 mL/min/{1.73_m2} Invalid Interpretation Code >60 [employer] Work Phone: eGFR (non-black) 84 mL/min/{1.73_m2} Invalid Interpretation Code >60 [employer] Work Phone: EST GFR - AA 102 mL/min Invalid Interpretation Code >60 [facility] Work Phone: Glucose 100 mg/dL Invalid Interpretation Code 70-110 [facility] Work Phone: Glucose mass conc 100 mg/dL Invalid Interpretation Code 70-110 [facility] Work Phone: Potassium 3.8 mmol/L Invalid Interpretation Code 3.5-5.1 [facility] Work Phone: Sodium 143 mmol/L Invalid Interpretation Code 136-145 [facility] Work Phone: Urea nitrogen 16 mg/dL Invalid Interpretation Code 7-18 [facility] Work Phone: Lab Report: CBC-Complete Blo od Cnt No Diffon 10-11-2016 Erythrocyte distribution width Auto Ratio (RBC) 44.4 fL High 35.1-43.9 [facility] Erythrocyte distribution width Ratio (RBC) 44.4 fL High 35.1-43.9 [facility] Work Phone: Erythrocyte distribution width Ratio (RBC) 13.6 % 11.6-14.6 [facility] Work Phone: Erythrocytes (RBC) 4.48 10*6/uL Invalid Interpretation Code 4.2-5.4 [facility] Work Phone: Hematocrit (HCT) 40.5 % Invalid Interpretation Code 37-47 [facility] Work Phone: Hematocrit Volume Fraction (Bld) 40.5 % 37-47 [facility] Work Phone: Hemoglobin (HGB) 13.6 [...] MCV Entitic volume (RBC) 90.4 fL 81-99 [facility] Work Phone: Platelet mean volume Entitic volume (Bld) 10.7 fL 6.2-12.0 [facility] Work Phone: Platelets 182 10*3/mm3 Invalid Interpretation Code 150-450 [facility] Work Phone: Platelets #/vol (Bld) 182 10*3/mm3 150-450 [facility] Work Phone: PMV by Baldomero 10.7 fL Invalid Interpretation Code 6.2-12.0 [facility] Work Phone: RBC #/vol (Bld) 4.48 10*6/uL 4.2-5.4 [facility] Work Phone: RDW SD 44.4 fL High 35.1-43.9 [facility] Work Phone: RDW-CA 13.6 % Invalid Interpretation Code 11.6-14.6 [facility] Work Phone: red blood cell distribution width, size density 44.4 fL High 35.1-43.9 [facility] Work Phone: WBC #/vol (Bld) 5.7 10*3/uL 4.4-11.0 [facility] Work Phone: WBC (Leukocytes) 5.7 10*3/uL Invalid Interpretation Code 4.4-11.0 [facility] Work Phone: Lab Report: Basic Metabolic Profile (BMP)on 09-22-2016 Anion gap 8 mmol/L Invalid Interpretation Code 09-20 [facility] Work Phone: Anion gap [Moles/Vol] 8 mmol/L 09-20 [facility] Work Phone: Calcium [Mass/Vol] 8.8 mg/dL 8.5-10.1 [facility] Work Phone: Chloride [Moles/Vol] 110 mmol/L High 98-[address] [facility] Work Phone: CO2 27.0 mmol/L Invalid Interpretation Code 21.0-32.0 [facility] Work Phone: CO2 (BldV) [Partial pressure] 27.0 mmol/L 21.0-32.0 [facility] Work Phone: Creatinine [Mass/Vol] 0.71 [...] Phone: Urea nitrogen [Mass/Vol] 16 mg/dL 7-18 [facility] Work Phone: Urea nitrogen/Creatinine [Mass ratio] 22.4 RATIO High 10-20 [facility] Work Phone: Lab Report: CBC-Complete Blo od Cnt No Diffon 09-22-2016 Erythrocyte distribution width (RBC) [Ratio] 44.2 fL High 35.1-43.9 [facility] Work Phone: Erythrocyte distribution width (RBC) [Ratio] 13.5 % 11.6-14.6 [facility] Work Phone: Erythrocytes (RBC) 4.48 10*6/uL Invalid Interpretation Code 4.2-5.4 [facility] Work Phone: Hematocrit (Bld) [Volume fraction] 40.4 % 37-47 [facility] Work Phone: Hematocrit (HCT) 40.4 % Invalid Interpretation Code 37-47 [facility] Work Phone: Hemoglobin (Bld) [Mass/Vol] 13.4 g/dL 12.0-15.0 [facility] Work Phone: MCH 29.9 pg Invalid Interpretation Code 27.0-32.0 [facility] Work Phone: MCH (RBC) [Entitic mass] 29.9 pg 27.0-32.0 [facility] Work Phone: MCHC 33.2 G/GL Invalid Interpretation Code 32-36 [facility] Work Phone: MCHC (RBC) [Mass/Vol] 33.2 G/GL 32-36 [facility] Work Phone: MCV 90.2 fL Invalid Interpretation Code 81-99 [facility] Work Phone: MCV (RBC) [Entitic vol] 90.2 fL 81-99 [facility] Work Phone: Platelet mean volume (Bld) [Entitic vol] 11.3 fL 6.2-12.0 [facility] Work Phone: Platelets 172 10*3/mm3 Invalid Interpretation Code 150-450 [facility] Work Phone: Platelets (Bld) [#/Vol] 172 10*3/mm3 150-450 [facility] Work Phone: PMV by Baldomero 11.3 fL Invalid Interpretation Code 6.2-12.0 [facility] Work Phone: RBC (Bld) [#/Vol] 4.48 10*6/uL 4.2-5.4 [facility] Work Phone: RDW-CA 13.5 % Invalid Interpretation Code 11.6-14.6 [facility] Work Phone: red blood cell distribution width, size density 44.2 fL High 35.1-43.9 [facility] Work Phone: WBC (Bld) [#/Vol] 6.1 10*3/uL 4.4-11.0 [facility] Work Phone: WBC (Leukocytes) 6.1 10*3/uL Invalid Interpretation Code 4.4-11.0 [place] [employer] Work Phone: Office Visiton 09-22-2016 Documentation of current medications (procedure) Done Invalid Interpretation Code [facility] Work Phone: Fall risk assessment No Invalid Interpretation Code [facility] Work Phone: Protein mass conc Done [facility] Work Phone: Replaced Document: Kennedy Garcia CG Observationson 09-22-2016 EKG QRS axis 56 deg Invalid Interpretation Code [facility] Work Phone: electrocardiogram interpretation 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 - Nonspecific T-abnormality. 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 - Nonspecific T-abnormality. ABNORMAL Invalid Interpretation Code [facility] Phone: P [place] 48 deg Invalid Interpretation Code [facility] Work Phone: P wave axis, electrocardiogram 48 deg Invalid Interpretation Code [facility] Work Phone: NE Interval 198 ms Invalid Interpretation Code [facility] Work Phone: NE interval, electrocardiogram 198 ms Invalid Interpretation Code [facility] Work Phone: Pulse (Heart Rate) 76 /min Invalid Interpretation Code [facility] Work Phone: QRS axis, electrocardiogram 56 deg Invalid Interpretation Code [facility] Work Phone: QRS Duration 86 ms Invalid Interpretation Code [facility] Work Phone: QRS duration, electrocardiogram 86 ms Invalid Interpretation Code [facility] Work Phone: QT Interval new path ms Invalid Interpretation Code [facility] Work Phone: QT interval, electrocardiogram new path ms Invalid Interpretation Code [facility] Work Phone: QTc Flores 392 ms [facility] Work Phone: T [place] -1 deg Invalid Interpretation Code [facility] Work Phone: T wave axis, electrocardiogram -1 deg Invalid Interpretation Code [facility] Work Phone: Office Visit: sore on vagina on 08-08-2016 Breast Mammogram screening Normal Bilateral Invalid Interpretation Code [facility] General categories [Interpretation] of Cervical or vaginal smear or scraping by Cyto stain Normal Invalid Interpretation Code [facility] Lab Report: Basic Metabolic Profile (BMP)on 04-15-2016 Anion gap [Moles/Vol] 6 mmol/L 5-15 [facility] Work Phone: Calcium [Mass/Vol] 9.2 mg/dL 8.5-10.1 [facility] Work Phone: Chloride [Moles/Vol] 106 mmol/L 98-[address] [facility] Work Phone: CO2 (BldV) [Partial pressure] 30.0 mmol/L 21.0-32.0 [facility] Work Phone: Creatinine [Mass/Vol] 0.81 mg/dL 0.55-1.02 [facility] Work Phone: EST GFR - AA 92 mL/min >60 [facility] Work Phone: GFR/1.73 sq M predicted among non-blacks MDRD (S/P/Bld) [Vol rate/Area] 76 mL/min/{1.73_m2} >60 [facility] Work Phone: Glucose [Mass/Vol] 123 mg/dL High 70-110 [facility] Work Phone: Potassium [Moles/Vol] 3.6 mmol/L 3.5-5.1 [facility] Work Phone: Sodium [Moles/Vol] 142 mmol/L 136-145 [facility] Work Phone: Urea nitrogen [Mass/Vol] 16 mg/dL 7-18 [facility] Work Phone: Urea nitrogen/Creatinine [Mass ratio] 19.7 RATIO 10-20 [facility] Work Phone: Lab Report: CBC-Complete Blo od Cnt No Diffon 04-15-2016 Erythrocyte distribution width (RBC) [Ratio] 44.2 fL High 35.1-43.9 [facility] Work Phone: Erythrocyte distribution width (RBC) [Ratio] 13.5 % 11.6-14.6 [facility] Work Phone: Hematocrit (Bld) [Volume fraction] 42.1 % 37-47 [facility] Work Phone: Hemoglobin (Bld) [Mass/Vol] 13.9 g/dL 12.0-15.0 [facility] Work Phone: MCH (RBC) [Entitic mass] 30.2 pg 27.0-32.0 [facility] Work Phone: MCHC (RBC) [Mass/Vol] 33.0 G/GL 32-36 [facility] Work Phone: MCV (RBC) [Entitic vol] 91.3 fL 81-99 [facility] Work Phone: Platelet mean volume (Bld) [Entitic vol] 11.3 fL 6.2-12.0 [facility] Work Phone: Platelets (Bld) [#/Vol] 148 10*3/mm3 Low 150-450 [facility] Work Phone: RBC (Bld) [#/Vol] 4.61 10*6/uL 4.2-5.4 [facility] Work Phone: WBC (Bld) [#/Vol] 7.4 10*3/uL 4.4-11.0 [facility] Work Phone: Lab Report: Prothrombin Time w/INRon 04-15-2016 INR Coag (PPP) [Relative time] 1.0 {INR} Invalid Interpretation Code [facility] Work Phone: INR in blood by coagulation 1.0 {INR} Invalid Interpretation Code [facility] Work Phone: PT Coag (PPP) [Time] 13 s Invalid Interpretation Code 11.7-14.9 [facility] Work Phone: Lab Report: Urinalysis, Rout ine (Dipstick)on 04-15-2016 Albumin Ql (U) 15 High Negative [facility] Work Phone: Bilirubin Ql (U) Negative Invalid Interpretation Code Negative [facility] Work Phone: Clarity (U) Sl. Cloudy Invalid Interpretation Code Clear [facility] Work Phone: Color (U) Yellow Invalid Interpretation Code Yellow [facility] Work Phone: Glucose Ql (U) Normal mg/dl Invalid Interpretation Code Normal [facility] Work Phone: Ketones (U) [Mass/Vol] 5 High Negative [facility] Work Phone: Leukocyte esterase Test strip Ql (U) 500 High Negative [facility] Work Phone: NITRITE UR Negative Invalid Interpretation Code Negative [facility] Work Phone: Nitrite Urine Negative Invalid Interpretation Code Negative [facility] Work Phone: Occult Blood, urine Negative Invalid Interpretation Code Negative [facility] Work Phone: OCCULT BLOOD-UR Negative Invalid Interpretation Code Negative [facility] Work Phone: pH (U) 5.0 [pH] 5.0 - 8.0 [facility] Work Phone: Specific gravity Refractometry (U) [Rel density] 1.025 Invalid Interpretation Code 1.002-1.030 [facility] Work Phone: Urine, bilirubin presence Negative Invalid Interpretation Code Negative [facility] Work Phone: Urine, ketones presence 5 High Negative [facility] Work Phone: Urine, pH 5.0 [pH] Invalid Interpretation Code 5.0 - 8.0 [facility] Work Phone: Urine, protein 15 mg/dL High Negative [facility] Work Phone: UROBILI Normal mg/dl Invalid Interpretation Code Normal [facility] Work Phone: urobilinogen, urine, by dipstick Normal mg/dl Invalid Interpretation Code Normal [facility] Work Phone: Office Visiton 04-15-2016 Tobacco smoking status NHIS Never smoker [facility] Work Phone: Tobacco use [facility] Never smoker Invalid Interpretation Code [facility] Work Phone: External Other: Preferred Me thod of Contacton 07-29-2015 methcontact phone Invalid Interpretation Code [facility] Work Phone: Patient's prefered method of contact phone Invalid Interpretation Code [facility] Work Phone: Office Visiton 05-01-2014 cardiac risk group B Invalid Interpretation Code [facility] Work Phone: General cardiovascular disease 10Y risk [#] Aurora.D'Agostcurtis Not enough information Invalid Interpretation Code [facility] Work Phone: Replaced Document: Midmark E CG Observationson 03-16-2012 Pulse (Heart Rate) 413 ms Invalid Interpretation Code [facility] Work Phone: Vital Signs Date Time Vital Sign Value Performing Clinician Faci lity 02-19-2025 16:31-0500 Body mass index (BMI) [Ratio] 19.16 kg/m2 Krislyn Aberegg PA Work Phone: [facility] 06-27-2024 16:31-0500 Body temperature 97.59 [degF] Krislyn Aberegg PA Work Phone: [facility] 06-27-2024 16:31-0500 Body weight 55.5 kg Krislyn Aberegg PA Work Phone: [facility] 06-27-2024 16:31-0500 Diastolic blood pressure 82 mm[Hg] Krislyn Aberegg PA Work Phone: [facility] 06-27-2024 16:31-0500 Heart rate 70 /min Krislyn Aberegg PA Work Phone: [facility] 06-27-2024 16:31-0500 Respiratory rate 18 /min Krislyn Aberegg PA Work Phone: [facility] 06-27-2024 16:31-0500 SaO2% (BldA) [Mass fraction] 98 % Krislyn Aberegg PA Work Phone: [facility] 06-27-2024 16:31-0500 Systolic blood pressure 138 mm[Hg] Krislyn Aberegg PA Work Phone: [facility] 04-23-2024 11:06-0500 Body height 170.[address] Melba Young MD Work Phone: [facility] 04-23-2024 11:06-0500 Body mass index (BMI) [Ratio] 19.7 kg/m2 Dr. Melba Young MD Work Phone: [facility] 04-23-2024 11:06-0500 Body temperature 97.9 [degF] Dr. Melba Young MD Work Phone: [facility] 04-23-2024 11:06-0500 Body weight 57.[address] Melba Young MD Work Phone: [facility] 04-23-2024 11:06-0500 Diastolic blood pressure 62 mm[Hg] Dr. Melba Young MD Work Phone: [facility] 04-23-2024 11:06-0500 Heart rate 51 /min Dr. Melba Young MD Work Phone: [facility] 04-23-2024 11:06-0500 Respiratory rate 14 /min Dr. Melba Young MD Work Phone: [facility] 04-23-2024 11:06-0500 SaO2% (BldA) [Mass fraction] 99 % Dr. Melba Young MD Work Phone: [facility] 04-23-2024 11:06-0500 Systolic blood pressure 110 mm[Hg] Dr. Melba Young MD Work Phone: [facility] 03-15-2024 09:06-0500 Body mass index (BMI) [Ratio] 19.89 kg/m2 Ines Athy PA-C Work Phone: [facility] 03-15-2024 09:06-0500 Body temperature 97.59 [degF] Ines Athy PA-C Work Phone: [facility] 03-15-2024 09:06-0500 Body weight 57.6 kg Ines Athy PA-C Work Phone: [facility] 03-15-2024 09:06-0500 Diastolic blood pressure 84 mm[Hg] Ines Athy PA-C Work Phone: [facility] 03-15-2024 09:06-0500 Heart rate 82 /min Ines Athy PA-C Work Phone: [facility] 03-15-2024 09:06-0500 Respiratory rate 20 /min Ines Athy PA-C Work Phone: [facility] 03-15-2024 09:06-0500 SaO2% (BldA) [Mass fraction] 99 % Ines Rosie GAONA-C Work Phone: [facility] 03-15-2024 09:06-0500 Systolic blood pressure 150 mm[Hg] Ines Rosie PA-C Work Phone: [facility] 01-14-2023 14:23-0400 Body height 170.[address] Melba Young Work Phone: [facility] 01-14-2023 14:23-0400 Body mass index (BMI) [Ratio] 20.9 kg/m2 Dr. Melba Young Work Phone: [facility] 01-14-2023 14:23-0400 Body weight 60.[address] Melba Young Work Phone: [facility] 01-14-2023 14:23-0400 Diastolic blood pressure 62 mm[Hg] Dr. Melba Young Work Phone: [facility] 01-14-2023 14:23-0400 Heart rate 80 /min Dr. Melba Young Work Phone: [facility] 01-14-2023 14:23-0400 Respiratory rate 16 /min Dr. Melba Young Work Phone: [facility] 01-14-2023 14:23-0400 Systolic blood pressure 121 mm[Hg] Dr. Melba Young Work Phone: [facility] 11-22-2022 15:05-0400 Body height 170.[address] Melba Young Work Phone: [facility] 11-22-2022 15:05-0400 Body mass index (BMI) [Ratio] 20.8 kg/m2 Dr. Melba Young Work Phone: [facility] 11-22-2022 15:05-0400 Body temperature 99 [degF] Dr. Melba Young Work Phone: [facility] 11-22-2022 15:05-0400 Body weight 60.[address] Melba Young Work Phone: [facility] 11-22-2022 15:05-0400 Diastolic blood pressure 80 mm[Hg] Dr. Melba Young Work Phone: [facility] 11-22-2022 15:05-0400 Heart rate 64 /min Dr. Melba Young Work Phone: [facility] 11-22-2022 15:05-0400 Respiratory rate 16 /min Dr. Melba Young Work Phone: [facility] 11-22-2022 15:05-0400 SaO2% (BldA) [Mass fraction] 98 % Dr. Melba Young Work Phone: [facility] 11-22-2022 15:05-0400 Systolic blood pressure 122 mm[Hg] Dr. Melba Young Work Phone: [facility] 08-03-2022 13:32-0400 Body height 170.[address] Melba Young Work Phone: [facility] 05-31-2022 13:04-0500 Body height 170.[address] Melba Young Work Phone: [facility] 05-31-2022 13:04-0500 Body mass index (BMI) [Ratio] 21.1 kg/m2 Dr. Melba Young Work Phone: [facility] 05-31-2022 13:04-0500 Body temperature 97.7 [degF] Dr. Melba Young Work Phone: [facility] 05-31-2022 13:04-0500 Body weight 61.[address] Melba Young Work Phone: [facility] 05-31-2022 13:04-0500 Diastolic blood pressure 82 mm[Hg] Dr. Melba Young Work Phone: [facility] 05-31-2022 13:04-0500 Heart rate 76 /min Dr. Melba Young Work Phone: [facility] 05-31-2022 13:04-0500 Respiratory rate 14 /min Dr. Melba Young Work Phone: [facility] 05-31-2022 13:04-0500 SaO2% (BldA) [Mass fraction] 97 % Dr. Melba Young Work Phone: [facility] 05-31-2022 13:04-0500 Systolic blood pressure 134 mm[Hg] Dr. Melba Young Work Phone: [facility] 11-25-2021 09:33-0400 Body height 170.[address] Melba Young Work Phone: [facility] Work Phone: 11-25-2021 09:33-0400 Body mass index (BMI) [Ratio] 20.9 kg/m2 Dr. Melba Young Work Phone: [facility] Work Phone: 11-25-2021 09:33-0400 Body temperature 97.4 [degF] Dr. Melba Young Work Phone: [facility] Work Phone: 11-25-2021 09:33-0400 Body weight 60.[address] Melba Young Work Phone: [facility] Work Phone: 11-25-2021 09:33-0400 Diastolic blood pressure 64 mm[Hg] Dr. Melba Young Work Phone: [facility] Work Phone: 11-25-2021 09:33-0400 Heart rate 80 /min Dr. Melba Young Work Phone: [facility] Work Phone: 11-25-2021 09:33-0400 Respiratory rate 16 /min Dr. Melba Young Work Phone: [facility] Work Phone: 11-25-2021 09:33-0400 SaO2% (BldA) [Mass fraction] 99 % Dr. Melba Young Work Phone: [facility] Work Phone: 11-25-2021 09:33-0400 Systolic blood pressure 114 mm[Hg] Dr. Melba Young Work Phone: [facility] Work Phone: 03-09-2017 14:20-0400 BMI (Body Mass Index) 22.14 kg/m2 Zo Valdez NP [facility] 03-09-2017 14:20-0400 Body Temperature 97.1 [degF] Zo Valdez QUILLER OPERATOR [facility] 03-09-2017 14:20-0400 Body Temperature 97.11 [degF] Zo Valdez QUILLER OPERATOR [facility] 03-09-2017 14:20-0400 BP Diastolic 76 mm[Hg] Zo Valdez QUILLER OPERATOR [facility] men's [facility] 03-09-2017 14:20-0400 BP Systolic 126 mm[Hg] Zo Valdez QUILLER OPERATOR [facility] 03-09-2017 14:20-0400 Height 170.18 cm Zo Valdez NP [facility] 03-09-2017 14:20-0400 Pulse (Heart Rate) 75 /min Zo Valdez NP [facility] 03-09-2017 14:20-0400 Respiratory Rate 16 /min Zo Valdez NP [facility] 03-09-2017 14:20-0400 Weight 64.14 kg Zo Valdez NP [facility] Care 02-09-2017 14:19-0400 BMI (Body Mass Index) 21.71 kg/m2 Zo Sernas QUILLER OPERATOR [facility] 02-09-2017 14:19-0400 Body Temperature 98.2 [degF] Zo José Miguel QUILLER OPERATOR [facility] omen's Care 02-09-2017 14:19-0400 BP Diastolic 72 mm[Hg] Zo José Miguel QUILLER OPERATOR [facility] men's Care 02-09-2017 14:19-0400 BP Systolic 127 mm[Hg] Zo José Miguel QUILLER OPERATOR [facility] men's Care 02-09-2017 14:19-0400 Height 170.18 cm Zo Sernas QUILLER OPERATOR [facility] men's Care 02-09-2017 14:19-0400 Pulse (Heart Rate) 88 /min Zocristobal Sernas QUILLER OPERATOR [facility] 02-09-2017 14:19-0400 Weight 62.87 kg Zo Sernas QUILLER OPERATOR [facility] 01-20-2017 10:49-0400 BMI (Body Mass Index) 21.8 kg/m2 Lauren Camacho MD [facility] 01-20-2017 10:49-0400 Body Temperature 97.5 [degF] Lauren Camacho MD [facility] 01-20-2017 10:49-0400 BP Diastolic 72 mm[Hg] Lauren Camacho MD [facility] 01-20-2017 10:49-0400 BP Systolic 160 mm[Hg] Lauren Camacho MD [facility] 01-20-2017 10:49-0400 Height 170.18 cm Lauren Camacho MD [facility] 01-20-2017 10:49-0400 Pulse (Heart Rate) 73 /min Lauren Camacho MD [facility] 01-20-2017 10:49-0400 Respiratory Rate 16 /min Lauren Camacho MD [facility] 01-20-2017 10:49-0400 Weight 63.14 kg Lauren Camacho MD [facility] 10-11-2016 09:36-0400 Body surface area Derived from [...] 14:24-0500 Height 170.18 cm Barrett Biswas MD [facility] Work Phone: Encounters Encounter Date Encounter Type Care Provider Facility Start: 10-17-2024 ambulatory Melba BARNES Fa cility:[facility] Start: 08-27-2024 End: 08-27-2024 ambulatory [place] [facility] Young Facility:[facility] Start: 08-22-2024 End: 08-22-[address] Melba Young MD Work Phone: [facility] Work Phone: Start: 08-22-2024 End: 08-22-[address] Stephanie Orta MD -Ultrasound, [facility] Work Phone: Start: 08-22-2024 End: 08-22-2024 ambulatory Stephanie Orta Facility:[facility] Start: 08-03-2024 End: 08-03-2024 ambulatory Barrett Biswas Facility:[facility] Start: 08-03-2024 End: 08-03-[address] Barrett Biswas MD -[facility] Work Phone: Start: 07-31-2024 End: 07-31-[address] Melba Young MD Work Phone: [facility] Work Phone: Start: 07-31-2024 End: 07-31-[address] Stephanie Orta MD -Laboratory, [place] Work Phone: Start: 07-31-2024 End: 07-31-2024 ambulatory [facility] Facility:[facility] Start: 06-30-2024 End: 06-30-2024 Follow-up encounter Bhupendra GAONA Work Phone: [facility] Start: 06-27-2024 End: 06-27-2024 Patient encounter procedure Bhupendra GAONA Work Phone: [facility] Comment on above: Acute UTI (Primary D x); Burning with urination Start: 06-27-2024 End: 06-27-2024 ambulatory MELBA YOUNG Facility:[facility] Start: 05-07-2024 End: 05-07-[address] Stephanie Orta MD -Laboratory, [place] Work Phone: Start: 05-07-2024 End: 05-07-2024 ambulatory [facility] Facility:[facility] Start: 05-04-2024 End: 05-04-2024 ambulatory Barrett Biswas Facility:[facility] Start: 05-04-2024 End: 05-04-[address] Barrett Biswas MD -[facility] Work Phone: Start: 04-23-2024 End: 04-23-[address] Melba Young MD -[facility] Work Phone: Start: 04-23-2024 End: 04-23-2024 ambulatory Melba Young Facility:[facility] Start: 03-15-2024 End: 03-15-2024 ambulatory EFEWONGBE OLEGHE Facility:[facility] Start: 03-15-2024 End: 03-15-2024 Patient encounter procedure Ines Arcos PA-C Work Phone: [facility] Comment on above: Acute UTI (Primary D x) Start: 03-13-2024 End: 03-13-2024 ambulatory Efewongbe Oleghe Facility:[facility] Start: 02-08-2024 End: 02-08-2024 [facility] Start: 02-06-2024 End: 02-06-2024 ambulatory [facility] Facility:[facility] Start: 01-13-2024 End: 01-13-2024 [facility] Start: 01-12-2024 End: 01-12-2024 [facility] Start: 11-09-2023 End: 11-09-2023 ambulatory [facility] Facility:[facility] Start: 11-04-2023 End: 11-04-2023 ambulatory [facility] Facility:[facility] Start: 11-02-2023 End: 11-02-2023 ambulatory [facility] Facility:[facility] Start: 08-19-2023 End: 08-19-[address] Melba Young Work Phone: [facility] Work Phone: Start: 08-19-2023 End: 08-19-[address] Melba Young Work Phone: [facility] Work Phone: Start: 08-05-2023 End: 08-05-[address] Melba Young Work Phone: [facility] Work Phone: Start: 05-25-2023 End: 05-25-[address] Melba Young Work Phone: [facility] Work Phone: Start: 05-25-2023 End: 05-25-[address] Melba Young Work Phone: [facility] Work Phone: Start: 05-06-2023 End: 05-06-[address] eMlba Young Work Phone: [facility] Work Phone: Start: 03-14-2023 End: 03-14-[address] Melba Young Work Phone: [facility] Work Phone: Start: 02-18-2023 End: 02-18-[address] Melba Young Work Phone: [facility] Work Phone: Start: 02-18-2023 End: 02-18-[address] Melba Young Work Phone: [facility] Work Phone: Start: 02-04-2023 End: 02-04-[address] Melba Young Work Phone: [facility] Work Phone: Start: 01-14-2023 End: 01-14-[address] Melba Young Work Phone: [facility] Work Phone: Start: 12-01-2022 Non-patient / Non-visit Dr. Kavon Young Work Phone: [facility] Start: 12-01-2022 End: 12-01-[address] Melba Young Work Phone: [facility] Work Phone: Start: 12-01-2022 End: 12-01-[address] [facility] Work [facility]: Start: 11-30-2022 End: 11-30-[address] Melba Young Work Phone: [facility] Work Phone: Start: 11-22-2022 End: 11-22-2022 Encounter for general adult medical examination without abnormal findings Dr. Melba Young Work Phone: [facility] Start: 11-22-2022 End: 11-22-[address] Melba Young Work Phone: [facility] Work Phone: Start: 10-27-2022 End: 10-27-[address] Melba Young Work Phone: [facility] Work Phone: Start: 09-02-2022 End: 09-02-[address] Melba Young Work Phone: [facility] Work Phone: Start: 09-02-2022 End: 09-02-[address] Melba Young Work Phone: [facility] Start: 08-03-2022 End: 08-03-[address] Melba Young Work Phone: [facility] Work Phone: Start: 08-03-2022 End: 08-03-[address] Melba Young Work Phone: [facility] Start: 07-17-2022 End: 07-17-[address] Melba Young Work Phone: [facility] Start: 06-18-2022 End: 06-18-[address] Melba Young Work Phone: [facility] Work Phone: Start: 06-18-2022 End: 06-18-[address] Melba Young Work Phone: [facility] Start: 05-31-[address] Melba Brannon Phone: [facility] Start: 05-31-2022 End: 05-31-2022 Encounter for general adult medical examination without abnormal findings Dr. Melba Young Work Phone: [facility] Start: 05-31-2022 End: 05-31-[address] Melba Young Work Phone: [facility] Start: 04-16-2022 End: 04-16-[address] Melba Brannon Phone: [facility] Start: 03-29-2022 End: 03-29-[address] Melba Young Work Phone: [facility] Start: 02-08-2022 End: 02-08-[address] Melba Young Work Phone: [facility] Work Phone: Start: 02-08-2022 End: 02-08-[address] Melba Young Work Phone: [facility] Start: 01-04-2022 End: 01-04-[address] Melba Young Work Phone: [facility] Work Phone: Start: 01-04-2022 End: 01-04-[address] Melba Young Work Phone: [facility] Start: 12-30-2021 End: 12-30-[address] Melba Young Work Phone: [facility] Start: 11-25-2021 End: 11-25-[address] Melba Young Work Phone: [facility] Start: 10-02-2021 End: 10-02-[address] Melba Young Work Phone: [facility] Start: 09-23-2021 End: 09-23-[address] Melba Young Work Phone: [facility] Start: 07-03-2021 End: 07-03-[address] Melba Young Work Phone: [facility] Start: 06-17-2021 End: 06-17-[address] Melba Young Work Phone: [facility] Start: 06-01-[address] Melba Young Work Phone: [facility] Start: 07-22-2020 End: 07-22-2020 Patient encounter procedure GRACIA PATEL [facility] Procedures Date Procedure Procedure Detail Performing Clinician Start: 08-22-[address] Melba Young MD Work Phone: Start: 06-27-2024 Urnls dip stick/tablet rgnt auto w/o microscopy Bhupendra GAONA Work Phone: Start: 03-15-2024 Urnls dip stick/tablet rgnt auto w/o microscopy Ivanna MastJose YOU Work Phone: Start: 08-03-2022 Dual energy X-ray absorptiometry Dr. Melba Young Work Phone: Start: 02-08-[address] 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 pm Karolina Blanc PA-C Work Phone: [...] RSV Vaccine (1 - 1-dose 75+ series) [facility] Start: 12-01-2027 Urine microalbumin profile DTaP,Tdap,Td Vaccine (2 - Td or Tdap) [facility] Start: 04-11-2027 Screening for malign ant neoplasm of colon [facility] Start: 05-09-2024 Advance Directive Discussion Advance Directive Discussion [facility] Start: 01-08-2024 Covid-19 Vaccine ( season) Covid-19 Vaccine ( season) [facility] Start: 08-07-2023 Diabetes Screening Diabetes Screenin g [facility] Start: 05-09-2023 Advance Directive Discussion Advance Directive Discussion [facility] Start: 2020 Pneumococcal Vaccine : 65+ (1 of 1 - PCV) Pneumococcal Vaccine: 65+ (1 of 1 - PCV) [facility] Start: 04-03-2019 Lipid panel Lipid Screening [facility] Start: 08-12-2017 Screening for malign ant neoplasm of breast Mammogram Screening [facility] Start: 05-31-2017 End: 05-31-2017 Appointment Appointment [facility] Work Phone: Start: 03-09-2017 End: 03-09-2017 Appointment Appointment [facility] Start: 02-21-2017 End: 02-21-2017 Appointment Appointment [facility] Work Phone: Start: 02-21-2017 End: 02-22-2017 Follow Up Appt 3 months Follow Up Appt 3 months [facility] Work Phone: Start: 02-21-2017 End: 02-22-2017 [facility] Work Phone: Start: 02-09-2017 End: 02-09-[address] [facility] Start: 01-20-2017 End: 01-20-2017 *HSVS HSV Culture Screen [id number] *HSVS HSV Culture Screen [id number] [facility] Start: 01-20-2017 End: 01-21-2017 Herpes simplex virus 1+2 IgG Ab [Units/volume] in Serum *HS12G Herpes Simplex Antibody [facility] Start: 01-20-2017 End: 01-20-[address] [facility] Start: 01-20-2017 End: 01-20-2017 *HSVS HSV Culture Screen [id number] *HSVS HSV Culture Screen [id number] [facility] Start: 01-20-2017 End: 01-21-2017 Herpes simplex virus 1+2 IgG Ab [Units/volume] in Serum *HS12G Herpes Simplex Antibody [facility] Start: 12-23-2016 End: 12-23-2016 Appointment Appointment [facility] Work Phone: Start: 12-23-2016 End: 12-23-2016 Appointment Appointment [facility] Work Phone: Start: 11-15-2016 End: 11-15-2016 Follow Up Appt 3 months Follow Up Appt [address] [facility] Start: 11-15-2016 End: 11-15-2016 Pacer [address] Clinic [facility] Start: 11-15-2016 End: 11-15-2016 Appointment Appointment [facility] Work Phone: Start: 11-15-2016 End: 11-15-2016 Follow Up Appt 3 months Follow Up Appt 3 months [facility] Work Phone: Start: 11-15-2016 End: 11-15-2016 Pacer Clinic Pacer Clinic [facility] Work Phone: Start: 10-25-2016 End: 10-25-2016 Appointment Appointment [facility] Work Phone: Start: 10-25-2016 End: 10-25-2016 Appointment Appointment [facility] Work Phone: Start: 10-08-2016 End: 10-08-2016 *BMP *BMP [facility] Start: 10-08-2016 End: 10-08-2016 *BMP *BMP [facility] Work Phone: Start: 09-22-2016 End: 09-22-2016 *BMP *BMP [facility] Start: 09-22-2016 End: 09-22-2016 Appointment Appointment [facility] Work Phone: Start: 09-22-2016 End: 09-22-2016 CBC W Auto Differential panel - Blood *CBC without Diff [facility] Start: 09-22-2016 End: 12-20-2016 VP COMPLIANCE VP COMPLIANCE [facility] Start: 09-22-2016 End: 09-22-2016 Ecg routine ecg w/least 12 lds w/i&r EKG (In office) [facility] Start: 09-22-2016 End: 12-20-2016 Follow Up Appt 3 months Follow Up Appt [address] [facility] Start: 09-22-2016 End: 10-08-2016 Left Heart Cath Left Heart Cath [facility] Start: 09-22-2016 End: 09-22-2016 *BMP *BMP [facility] Work Phone: Start: 09-22-2016 End: 09-22-2016 CBC W Auto Differential panel - Blood *CBC without Diff [facility] Work Phone: Start: 09-22-2016 End: 12-20-2016 VP COMPLIANCE VP COMPLIANCE [facility] Work Phone: Start: 09-22-2016 End: 09-22-2016 Electrocardiogram, complete EKG (In office) [facility] Work Phone: Start: 09-22-2016 End: 12-20-2016 Follow Up Appt 3 months Follow Up Appt 3 months [facility] Work Phone: Start: 09-22-2016 End: 10-08-2016 Left Heart Cath Left Heart Cath [facility] Work Phone: Start: 04-26-2016 End: 09-22-2016 Follow Up Appt 6 months Follow Up Appt 6 months [facility] Start: 04-26-2016 End: 09-22-2016 Pacer Clinic Pacer [facility] Start: 04-26-2016 End: 09-22-2016 Follow Up Appt 6 months Follow Up Appt 6 months [facility] Work Phone: Start: 04-26-2016 End: 09-22-2016 [facility] Work Phone: Start: 04-15-2016 End: 09-22-2016 VP COMPLIANCE VP COMPLIANCE [facility] Start: 04-15-2016 End: 09-22-2016 Follow Up Appt 1 year Follow Up Appt 1 year [facility] Start: 04-15-2016 End: 09-22-2016 VP COMPLIANCE VP COMPLIANCE [facility] Work Phone: Start: 04-15-2016 End: 09-22-2016 Follow Up Appt 1 year Follow Up Appt 1 year [facility] Work Phone: Start: 04-14-2016 End: 04-16-2016 *BMP *BMP [facility] Start: 04-14-2016 End: 04-16-2016 *UA - Urinalysis w/o Micro *UA - Urinalysis w/o Micro [facility] Start: 04-14-2016 End: 04-16-2016 CBC W Auto Differential panel - Blood *CBC without Diff [facility] Start: 04-14-2016 End: 04-16-2016 Chest x-ray X-Ray, Chest, PA & Lateral [facility] Start: 04-14-2016 End: 04-23-2016 Ecg routine ecg w/least 12 lds w/i&r EKG (In office) [facility] Start: 04-14-2016 End: 04-16-2016 INR Coag RelTime (PPP) *PT/INR [facility] Start: 04-14-2016 End: 04-15-2016 Pacemaker Generator Change Pacemaker Generator Change [facility] Start: 04-14-2016 End: 04-16-2016 *BMP *BMP [facility] Work Phone: Start: 04-14-2016 End: 04-16-2016 *UA - Urinalysis w/o Micro *UA - Urinalysis w/o Micro [facility] Work Phone: Start: 04-14-2016 End: 04-16-2016 CBC W Auto Differential panel - Blood *CBC without Diff [facility] Work Phone: Start: 04-14-2016 End: 04-16-2016 Chest x-ray X-Ray, Chest, PA & Lateral [facility] Work Phone: Start: 04-14-2016 End: 04-16-2016 Coagulation factor induced.INR assay in platelet poor plasma *PT/INR [facility] Work Phone: Start: 04-14-2016 End: 04-23-2016 Electrocardiogram, complete EKG (In office) [facility] Work Phone: Start: 04-14-2016 End: 04-15-2016 Pacemaker Generator Change Pacemaker Generator Change [facility] Work Phone: Start: 12-26-2015 End: 04-23-2016 Follow Up Appt 3 months Follow Up Appt [address] [facility] Start: 12-26-2015 End: 04-23-2016 [facility] Start: 12-26-2015 End: 04-23-2016 Follow Up Appt 3 months Follow Up Appt 3 months [facility] Work Phone: Start: 12-26-2015 End: 04-23-2016 [facility] Work Phone: Start: 07-09-2015 End: 04-23-2016 Follow Up Appt 6 months Follow Up Appt [address] [facility] Start: 07-09-2015 End: 04-23-2016 [facility] Start: 07-09-2015 End: 04-23-2016 Follow Up Appt 6 months Follow Up Appt 6 months [facility] Work Phone: Start: 07-09-2015 End: 04-23-2016 [facility] Work Phone: Start: 2015 RSV Vaccine (1 - Ris k 60-74 years 1-dose series) RSV Vaccine (1 - Risk 60-74 years 1-dose series) [facility] Start: 04-02-2015 End: 04-23-2016 Follow Up Appt 3 months Follow Up Appt [address] [facility] Start: 04-02-2015 End: 04-23-2016 [facility] Start: 04-02-2015 End: 04-23-2016 Follow Up Appt 3 months Follow Up Appt 3 months [facility] Work Phone: Start: 04-02-2015 End: 04-23-2016 [facility] Work Phone: Start: 11-14-2014 End: 04-23-2016 Follow Up Appt 3 months Follow Up Appt [address] [facility] Start: 11-14-2014 End: 04-23-2016 [facility] Start: 11-14-2014 End: 04-23-2016 Follow Up Appt 3 months Follow Up Appt 3 months [facility] Work Phone: Start: 11-14-2014 End: 04-23-2016 [facility] Work Phone: Start: 08-15-2014 End: 04-23-2016 Follow Up Appt 6 months Follow Up Appt [address] [facility] Start: 08-15-2014 End: 04-23-2016 [facility] Start: 08-15-2014 End: 04-23-2016 Follow Up Appt 6 months Follow Up Appt 6 months [facility] Work Phone: Start: 08-15-2014 End: 04-23-2016 [facility] Work Phone: Start: 05-01-2014 End: 05-06-2014 VP COMPLIANCE [facility] Start: 05-01-2014 End: 04-23-2016 Follow Up Appt 3 months Follow Up Appt [address] [facility] Start: 05-01-2014 End: 05-06-2014 Follow Up Appt 6 months Follow Up Appt [address] [facility] Start: 05-01-2014 End: 04-23-2016 [facility] Start: 05-01-2014 End: 05-06-2014 VP COMPLIANCE VP COMPLIANCE [facility] Work Phone: Start: 05-01-2014 End: 04-23-2016 Follow Up Appt 3 months Follow Up Appt 3 months [facility] Work Phone: Start: 05-01-2014 End: 05-06-2014 Follow Up Appt 6 months Follow Up Appt 6 months [facility] Work Phone: Start: 05-01-2014 End: 04-23-2016 [facility] Work Phone: Start: 04-15-2014 End: 04-23-2016 Follow Up Appt 3 months Follow Up Appt [address] [facility] Start: 04-15-2014 End: 04-23-2016 [facility] Pacer [facility] Start: 04-15-2014 End: 04-23-2016 Follow Up Appt 3 months Follow Up Appt 3 months [facility] Work Phone: Start: 04-15-2014 End: 04-23-2016 [facility] Work Phone: Start: 12-28-2013 End: 04-23-2016 Follow Up Appt 3 months Follow Up Appt [address] [facility] Start: 12-28-2013 End: 04-23-2016 [facility] Start: 12-28-2013 End: 04-23-2016 Follow Up Appt 3 months Follow Up Appt 3 months [facility] Work Phone: Start: 12-28-2013 End: 04-23-2016 [facility] Work Phone: Start: 08-15-2013 End: 12-28-2013 Follow Up Appt 3 months Follow Up Appt [address] [facility] Start: 08-15-2013 End: 12-28-2013 [facility] Start: 08-15-2013 End: 12-28-2013 Follow Up Appt 3 months Follow Up Appt 3 months [facility] Work Phone: Start: 08-15-2013 End: 12-28-2013 [facility] Work Phone: Start: 02-01-2013 End: 12-28-2013 Follow Up Appt 3 months Follow Up Appt 3 months [facility] Start: 02-01-2013 End: 12-28-2013 [facility] Start: 02-01-2013 End: 12-28-2013 Follow Up Appt 3 months Follow Up Appt 3 months [facility] Work Phone: Start: 02-01-2013 End: 12-28-2013 [facility] Work Phone: Start: 10-23-2012 End: 12-28-2013 Follow Up Appt 3 months Follow Up Appt [address] [facility] Start: 10-23-2012 End: 12-28-2013 [facility] Start: 10-23-2012 End: 12-28-2013 Follow Up Appt 3 months Follow Up Appt 3 months [facility] Work Phone: Start: 10-23-2012 End: 12-28-2013 [facility] Work Phone: Start: 07-19-2012 End: 12-28-2013 Follow Up Appt 3 months Follow Up Appt [address] [facility] Start: 07-19-2012 End: 12-28-2013 [facility] Start: 07-19-2012 End: 12-28-2013 Follow Up Appt 3 months Follow Up Appt 3 months [facility] Work Phone: Start: 07-19-2012 End: 12-28-2013 [facility] Work Phone: Start: 03-16-2012 End: 12-28-2013 Ecg routine ecg w/least 12 lds w/i&r EKG (In office) [facility] Start: 03-16-2012 End: 03-16-2012 Follow Up Appt 1 year Follow Up Appt 1 year [facility] Start: 03-16-2012 End: 12-28-2013 Electrocardiogram, complete EKG (In office) [facility] Work Phone: Start: 03-16-2012 End: 03-16-2012 Follow Up Appt 1 year Follow Up Appt 1 year [facility] Work Phone: Start: 2005 Shingrix Vaccine (1 of 2) Shingrix Vaccine (1 of 2) [facility] Start: 2000 Screening for malign ant neoplasm of colon [facility] Start: 1974 Pneumococcal Vaccine : 50+ (1 of 2 - PCV) Pneumococcal Vaccine: 50+ (1 of 2 - PCV) [facility] Start: 1974 Shingrix Vaccine (1 of 2) Shingrix Vaccine (1 of 2) [facility] Start: 1973 Anxiety Screening Anxiety Screening [facility] Start: 1973 Depression Screening Depression Scre ening [facility] Bacteria identified in Urine by Culture URINE CULTURE Microbiology Routine Acute UTI Ordered: 03/15/2024 [facility] Work Phone: Comment on above: Ordered: 03/15/2024 Bacteria identified in Urine by Culture BACTERIAL CULTURE, URINE Microbiology Routine Burning with urination Ordered: 06/27/2024 [facility] Work Phone: Comment on above: Ordered: 06/27/2024 DXA Bone [Mass/Area] Bone density [facility] Lipid 1996 panel - Serum or Plasma [facility] MG Breast - bilatera l Screening [facility] Work Phone: MG Breast - bilatera l Screening [facility] Immunizations Immunization Date Immunization Notes Care Provider [facility] 03-13-2024 Seasonal trivalent influenza vaccine, adjuvanted, preservative free Dr. Melba Young MD Work Phone: [facility] 03-14-2023 influenza, injectabl e, quadrivalent, preservative free Dr. Melba Young Work Phone: [facility] 04-16-2022 influenza, injectabl e, quadrivalent, preservative free Dr. Melba Young Work Phone: [facility] 04-16-2022 influenza, seasonal, injectable Dr. Melba Young Work Phone: [facility] 07-23-2020 Covid (Andrea & Andrea) Dr. Melba Young Work Phone: [facility] 03-20-2020 influenza, injectabl e, quadrivalent, contains preservative Ines Arcos PA-C Work Phone: [facility] 03-28-2019 influenza, seasonal, injectable Ines Arcos PA-C Work Phone: [facility] 03-27-2018 influenza, injectabl e, quadrivalent, contains preservative Ines Arcos PA-C Work Phone: [facility] 11-30-2017 tetanus toxoid, redu stella diphtheria toxoid, and acellular pertussis vaccine, adsorbed Ines Arcos PA-C Work Phone: [facility] 02-15-2017 influenza, injectabl e, quadrivalent, contains preservative Ines Arcos PA-C Work Phone: [facility] 05-19-2010 influenza virus vaccine, unspecified formulation Ines Arcos PA-C Work Phone: [facility] Payers Date Payer Category Payer [facility] [id number] 2024 Unknown [id number] 2024 Medicare [id number] 2024 Unknown [id number] 2023 Self-pay [id number] 2015 Private Health Insurance JOSEPHINE CORADO POS [id number] 2015-Present [phone] [address] [place] [address] POS [id number] 2015 Private Health Insurance [id number] 2004 Unknown [facility] [id number] 1955 Unknown [id number] 51 Unknown ANTHEM [id number] Unknown [id number] 2.16.840.1.268731.3.579.2.4 62 Unknown [id number] 2.16.840.1.445867.3.579.2.4 62 Unknown [id number] 2.16.840.1.827671.3.579.2.4 62 Unknown [id number] 2.16.840.1.692347.3.579.2.4 62 Unknown [id number] 2.16.840.1.639964.3.579.2.4 62 Unknown [id number] 2.16.840.1.421479.3.579.2.4 62 Unknown [id number] 2.16.840.1.291953.3.579.2.4 62 Unknown [id number] 2.16.840.1.740474.3.579.2.4 62 Unknown [id number] 2.16.840.1.390823.3.579.2.4 62 Unknown [id number] 2.16.840.1.268563.3.579.2.4 62 Unknown [id number] 2.16.840.1.956231.3.579.2.4 62 Unknown [id number] 2.16.840.1.308936.3.579.2.4 62 Unknown [id number] 2.16.840.1.451593.3.579.2.4 62 Unknown [id number] 2.16.840.1.249579.3.579.2.4 62 Unknown [id number] 2.16.840.1.520942.3.579.2.4 62 Unknown [id number] 2.16.840.1.501089.3.579.2.4 62 Unknown [id number] 2.16.840.1.893739.3.579.2.4 62 Unknown [id number] 2.16.840.1.219555.3.579.2.4 62 Unknown [id number] [id number] 62 Social History Date Type Detail Facility Start: 06-01-2021 End: 03-14-2023 Tobacco smoking status KYIS Unknown if ever smoked [facility] Start: 1955 Sex Assigned At Female W [facility] Start: 04-14-2012 End: 03-14-2023 Tobacco smoking status NHIS Never smoked tobacco [facility] Work Phone: Start: 04-14-2012 Tobacco use and exposure Smokeless tobacco non-user [facility] Start: 03-15-2024 End: 06-27-2024 Alcoholic beverage intake Current drinker of alcohol (finding) [facility] Start: 2020 End: 03-15-2024 History of Social function [facility] Start: 2020 End: 03-15-2024 Tobacco use panel [facility] National Score (1-10 0), lower number is lower risk Not on file [facility] Start: 1955 Sex assigned at Not on file [facility] Start: 08-06-2024 End: 08-23-2024 Sex Female (finding) [facility] Functional Status Date Assessment Result Facility 04-26-2014 Are you deaf, or do you have serious difficulty hearing No 04/26/2014 10:52 AM Shireen King MA No [facility] 04-26-2014 Are you blind, or do you have serious difficulty seeing, even when wearing glasses No 04/26/2014 10:52 AM Shireen King MA No [facility] 04-26-2014 Do you have serious difficulty walking or climbing stairs No 04/26/2014 10:52 AM Shireen King MA No [facility] 04-26-2014 Do you have difficul ty dressing or bathing No 04/26/2014 10:52 AM Shireen King MA No [facility] 04-26-2014 Because of a physica l, mental, or emotional condition, do you have difficulty doing errands alone such as visiting a physician's office or shopping No 04/26/2014 10:52 AM Shireen King MA [facility] Mental Status Date Assessment Result Facility 04-26-2014 Because of a physica l, mental, or emotional condition, do you have serious difficulty concentrating, remembering, or making decisions No 04/26/2014 10:52 AM EST Shireen Pineda MA No [facility] Clinical Notes 03-15-2024 to 08-22-2024 Telephone Encounter - Marian WolfeMICHELLE - 06/30/2024 12:55 PM ESTTelephone Encounter - Marian WolfeMICHELLE - 06/30/2024 12:55 PM Bhupendra Jacob PA - 06/27/2024 4:38 PM EST Note Date & Type Note Facility 08-22-2024 Radiology Diagnostic study note [facility] Imaging Services [address] [place], [place] [address] Liver MR#: [id number] Acct: [id number] Name: GISEL SAWYER Rep #: [id number] : 1955 F 69 From: Danielle Mahajan MD PCP: Dr. Melba Young MD Status: R EG CLI Study:Liver Date of Exam: 08/22/24 Exam# [id number] Ordering Dr: Stephanie Orta MD PROCEDURE: LIVER [...] 2. Additional description as above. Reading Location: [id number] CC: Dr. Melba Young MD; Dr. Stephanie Orta MD ~ Drier: Signed [facility] 06-30-2024 Telephone encount er Note Patient notified of results, verbalized understanding of instructions given. Marian Wolfe MA [facility] 06-30-2024 Miscellaneous Notes Formattin g of this note might be different from the original. Patient notified of results, verbalized understanding of instructions given. Marian Wolfe MA Please contact patient and let her know she is on appropriate antibiotic therapy. Continue as prescribed. documented in this encounter [facility] 06-30-2024 Telephone encount er Note Please contact patient and let her know she is on appropriate antibiotic therapy. Continue as prescribed. [facility] 06-27-2024 Note HNO ID: [id number] Author: BHUPENDRA FIGUEROA PA Service: ? Author Type: Physician Key Cutter Type: Progress Notes Filed: 06/27/2024 16:40 Note Text: This note was created using Base Fortyriter. Subjective Gisel Sawyer is a 69 year old female. HPI 69-year-old female presents for UTI symptoms. Patient has had symptoms on and off for about a week. She has urgency, frequency, bladder pressure. She denies any blood in the urine, back pain, abdominal pain, fevers or vomiting. She has had a UTI in the past and this feels similar. She did take care, dewl-gsw-whantpa a few days ago which did help [...] signs and sy (more content not included)... [facility] 06-27-2024 History of Presen t illness Narrative This note was created using Base Fortyriter. Subjective Gisel Sawyer is a 69 year old female. HPI 69-year-old female presents for UTI symptoms. Patient has had symptoms on and off for about a week. She has urgency, frequency, bladder pressure. She denies any blood in the urine, back pain, abdominal pain, fevers or vomiting. She has had a UTI in the past and this feels similar. She did take care, mjkk-rlc-uivdxtl a few days ago which did help [...] evaluation. JIMENEZ Perry documented in this encounter [facility] 04-23-2024 Evaluation note Diagnosis Onset Date Resolution Anxiety chronic April 23, 2024 11:00am Constipation chronic April h2023 11:00am Osteoporosis chronic April h2023 11:00am [facility] Work Phone: 1(816) 168-116711-07-2024 NoteHNO ID: [id number] Author: INES ARCOS PA-C Service: ? Author Type: Physician Key Cutter Type: Progress Notes Filed: 03/15/2024 09:22 Note Text: This note was created using NuORDER. Subjective Gisel Sawyer is a 68 year old female. HPI Patient presents with a chief complaint of urinary frequency, dysuria over the past 3 days. She tried some ggsa-icq-rgofmnu urinary medication which did not seem to [...] DIP, URINE (POC) - URINE CULTURE JIMENEZ [facility]11-07-2024 History of Present illness Narrative* Ines Arcos PA-C - 03/15/2024 9:20 AM EST This note was created using Base Fortyriter. Subjective Gisel Sawyer is a 68 year old female. HPI Patient presents with a chief complaint of urinary frequency, dysuria over the past 3 days. She tried some qnir-sul-ealobmq urinary medication which did not seem to [...] CULTURE Ines Arcos PA-C [facility] Diagnosis Onset Date Resolution Status Paroxysmal atrial fibrillation chronic Presence of cardiac pacemaker chronic Urhzl-Vyxglguor-Fcquz syndrome chronic Paroxysmal atrial fibrillation chronic Presence of cardiac pacemaker chronic Ojebv-Hahtosaal-Avbkp syndrome [facility] Work Phone: Evaluation note* Diagnosis Onset Date Resolution Status Paroxysmal atrial fibrillation chronic Presence of cardiac pacemaker chronic Nudox-Icdpdxqrn-Fvacg syndrome chronic Chronic constipation chronic Osteoporosis chronic Rheumatoid arthritis [facility] Work Phone: Evaluation note* Diagnosis Onset Date Resolution Status Paroxysmal atrial fibrillation chronic Presence of cardiac pacemaker chronic Nmxml-Oxvrjkmwv-Jrqch syndrome chronic Chronic constipation chronic Osteoporosis chronic Rheumatoid arthritis chronic Paroxysmal atrial fibrillation chronic Presence of cardiac pacemaker chronic Zkmav-Ustwmwred-Jpzbb syndrome [facility] Work Phone: Evaluation note* Diagnosis Onset Date Resolution Status Chronic constipation chronic Osteoporosis chronic Rheumatoid arthritis chronic Paroxysmal atrial fibrillation chronic Presence of cardiac pacemaker chronic Wrtjm-Xftiqjwie-Dfqvt syndrome [facility] Work Phone: Evaluation note* Diagnosis Onset Date Resolution Status Anxiety acute Health care maintenance acut e Chronic constipation chronic Osteoporosis chronic Rheumatoid arthritis chronic [facility] Work Phone: Evaluation note* Diagnosis Onset Date Resolution Status Anxiety acute Health care maintenance acut e Chronic constipation chronic Osteoporosis chronic Rheumatoid arthritis chronic Paroxysmal atrial fibrillation chronic Presence of cardiac pacemaker chronic Srwns-Rvflvrxbq-Omjec (WPW) syndrome chronic [facility] Work Phone: Evaluation note* Diagnosis Onset Date Resolution Status Paroxysmal atrial fibrillation chronic Presence of cardiac pacemaker chronic Imydh-Apnlydfkk-Uqatc syndrome chronic Health care maintenance acut e Hyperlipidemia acute Murmur chronic Osteoporosis chronic Rheumatoid arthritis chronic [facility] Work Phone: Evaluation note* Diagnosis Onset Date Resolution Status Paroxysmal atrial fibrillation chronic Presence of cardiac pacemaker chronic Zxhgq-Rlhdgxpia-Gryrx syndrome chronic Health care maintenance acut e Hyperlipidemia acute Murmur chronic Osteoporosis chronic Rheumatoid arthritis chronic Paroxysmal atrial fibrillation chronic Presence of cardiac pacemaker chronic Wbfza-Gexkjwino-Dcbxg (WPW) syndrome chronic Murmur chronic Presence of cardiac pacemaker chronic Xnmpw-Rfgdnqnjk-Bwhid (WPW) syndrome chronic [facility] Work Phone: Evaluation note* Diagnosis Onset Date Resolution Status Immunization due noneactive [facility] Work Phone: Evaluation noteNo assessment information available [facility] Work Phone: Evaluation note* Diagnosis Acute UTI- Primary Urinary tract infection, site not specified [facility] Diagnosis Acute UTI- Primary Urinary tract infection, site not specified Burning with urination Dysuria documented in this encounter [facility] for referral (narrative)No reason for referral information available[facility] Work Phone: Summary Purpose Family History No [...] Yes April 07 017 11:48am Power of Family Court Justice No April 11, 2017 8:14pm Advance Directive Response Recorded Date/ Time Advance Directives No April 16, 2016 10:58am Living Will Yes April 07 10:48am Power of Family Court Justice No April 11, 2017 7:14pm Advance Directive Response Recorded Date/ Time Living Will Yes April 07 11:48am Do you have a Healthcare Power of Family Court Justice? No April 11, 2017 8:14pm Advance Directives No April 16, 2016 11:58am Advance Directive Response Recorded Date/ Time Advance Directives No April 16, 2016 11:58am Chief Complaint and Reason for Visit Chief Complaint 3 mos remote PPM f/u S/O - COPY PCP 3 mos remote PPM f/u STANDING ORDER/COPY PCP Reason for Visit Paroxysmal atrial fi brillation Presence of cardiac pacemaker Zxlkf-Goaqubquk-Ztifm syndrome Paroxysmal atrial fibrillation Presence of cardiac pacemaker Dngid-Amqcsjkxm-Jueae syndrome Chief Complaint 3 mos remote PPM f/u STANDING ORDER/COPY PCP 6 M FU Reason for Visit Paroxysmal atrial fi brillation Presence of cardiac pacemaker Vpnmy-Ktnjxxhhj-Hjkcj syndrome Chronic constipation Osteoporosis Rheumatoid arthritis Chief Complaint 3 mos remote PPM f/u STANDING ORDER/COPY PCP 6 M FU 3 mos remote PPM f/u STANDING ORDER Reason for Visit Paroxysmal atrial fi brillation Presence of cardiac pacemaker Hjofh-Qmpdqjohs-Nsgaz syndrome Chronic constipation Osteoporosis Rheumatoid arthritis Paroxysmal atrial fibrillation Presence of cardiac pacemaker Jwpyx-Wfxjehxdp-Yksth syndrome Chief Complaint 6 M FU 3 mos remote PPM f/u STANDING ORDER SCREENING Reason for Visit Chronic constipation Osteoporosis Rheumatoid arthritis Paroxysmal atrial fibrillation Presence of cardiac pacemaker Njlwr-Lcijvbkqy-Xpabe syndrome Chief Complaint STANDING ORDER flu shot [...] Paroxysmal atrial fibrillation Presence of cardiac pacemaker Ejgfe-Xqzjvofdo-Sqdhr (WPW) syndrome Chief Complaint 6 M FU EORDER AND ADD VELLANKI STANDING ORDER 3 mos remote PPM f/u SCREENING S/O- PAIN - COPY PCP Reason for Visit Anxiety Health care maintenance Chronic constipation Osteoporosis Rheumatoid arthritis Paroxysmal atrial fibrillation Presence of cardiac pacemaker Goqjc-Aplnkfjga-Atsrv (WPW) syndrome Chief Complaint S/O- PAIN - COPY PCP 3 mos remote PPM f/u FOLLOW UP S/O- PAIN- COPY PCP MURMUR Reason for Visit Paroxysmal atrial fi brillation Presence of cardiac pacemaker Etctk-Ohitsjyrr-Hexgv syndrome Health care maintenance Hyperlipidemia Murmur Osteoporosis Rheumatoid arthritis Chief Complaint 3 mos remote PPM f/u FOLLOW UP S/O- PAIN- COPY PCP MURMUR IN OFFICE PACER CHECK / VP COMPLIANCE @ 2:30 RE-EST / PREV VP COMPLIANCE PT / TANA @ 2 S/O- PAIN COPY PCP Reason for Visit Paroxysmal atrial fi brillation Presence of cardiac pacemaker Ugcmv-Zwdvejvsd-Ijpre syndrome Health care maintenance Hyperlipidemia Murmur Osteoporosis Rheumatoid arthritis Paroxysmal atrial fibrillation Presence of cardiac pacemaker Ahivy-Vcjtrefqm-Dnaiq (WPW) syndrome Murmur Presence of cardiac pacemaker Oektd-Lldmpvyvf-Yjreo (WPW) syndrome Chief Complaint Pacer Check Remote [...] and content) DATE CREATED AUTHOR 08/04/2020 Chava Carroll [facility] DATE CREATED AUTHOR AUTHOR'S ORGANIZ ATION 07/02/2024 [facility] DATE CREATED AUTHOR AUTHOR'S ORGANIZ ATION 10/12/2024 [facility] Goals (unrecognized section and content) Goals may [...] Dr. Barrett Biswas MD Attending Provider Active Computer Assembler Relationship Specialty Start Date End Date Melba Young MD [address] [facility] [address] [place] [phone] PCP - General Internal Medicine 06/27/24 Computer Assembler Relationship Specialty Start Date End Date Melba Young MD [address] [facility] [address] [place] [phone] PCP - General Internal Medicine 06/27/24 Team [...] or prosecute any alcohol or drug abuse patient.[facility] the event this information is protected by the Federal Confidentiality of Alcohol and Drug Abuse Patient Records regulations: The Federal rules restrict any use of the information to criminally investigate or prosecute any alcohol or drug abuse patient.[facility] the event this information is protected by the Federal Confidentiality of Alcohol and Drug Abuse Patient Records regulations: The Federal rules restrict any use of the information to criminally investigate or prosecute any alcohol or drug abuse patient.[facility] Reason for Visit (unrecogniz ed section [...] BE BASED ON THE PRIMARY CLINICAL RECORDS. [facility] [employer] [facility]. provides no warranty or guarantee of the accuracy or completeness of information in this document.
== END | disposition home or self-care (01) ==
LOC: OPBD 07:57
PROVIDERS: PCP Internal Medicine; Referring Provider Internal Medicine; Visit Provider Internal Medicine
DX: M85.88 Other specified disorders of bone density and structure, other site (principal)
CPT/HCPCS: 77080

== ENCOUNTER → 2024-11-23 | Outpatient (CLI) | payer MEDICARE, BC, SELFPAY ==
[2024-11-23 10:40] LABS: Hematocrit 41.8 % (37-47); Hemoglobin 13.5 g/dL (12.0-15.0); Immature Granulocytes Count 0.010 X10^3/uL (0.0-0.0); Mean Corp Hgb Conc 32.3 g/dL (32-36); Mean Corpuscular Volume 93.3 fL (81-99); Mean Platelet Vol. 11.0 fl (6.2-12.0); NRBC Flagged by Analyzer 0 % (0-5); Platelet Count 168 K/mm3 (150-450); RBC Distribution Width CV 14.2 % (11.6-14.6); RBC Distribution Width SD 48.9 fl (35.1-43.9); Red Blood Count 4.48 M/mm3 (4.2-5.4); White Blood Count 5.9 K/mm3 (4.4-11.0)
[2024-11-23 11:11] LABS: AST(SGOT) 29 U/L (<=31); Alanine Aminotransfer ALT/SGPT 26 U/L (<=34); Albumin, Serum 4.4 g/dL (3.4-4.8); Alkaline Phosphatase 76 U/L (35-104); Anion Gap 11 (5-15); BUN 16 mg/dL (4-19); BUN/Creat Ratio 22.3 RATIO (10-20); Calcium,Total 10.0 mg/dL (7.6-11.0); Carbon Dioxide 25.9 mmol/L (21.0-32.0); Chloride 105 mmol/L (98-108); Globulin 2.7 g/dL (2.2-4.2); Glucose 91 mg/dL (70-99); Potassium 4.2 mmol/L (3.3-5.1)
== END | disposition home or self-care (01) ==
PROVIDERS: PCP Internal Medicine; Referring Provider Internal Medicine Rheumatology; Visit Provider Internal Medicine Rheumatology
DX: L40.59 Other psoriatic arthropathy (principal); Z79.899 Other long term (current) drug therapy
CPT/HCPCS: 36415; 80053; 85025

== ENCOUNTER → 2025-02-14 | Outpatient (CLI) | payer MEDICARE, BC, SELFPAY ==
--- NOTE | 2025-02-14 09:48 | ECHOD_ITS ---
Reason For Study Reason For Study: MURMUR Procedure This was a 2D Doppler, Color Flow transthoracic echocardiogram. Exam performed in department. Left Ventricle Normal LV size. Left ventricular systolic function is normal. The left ventricular ejection fraction is 70 %. Stage 1 diastolic dysfunction. No regional wall motion abnormalities noted. Right Ventricle Normal RV size. ICD or pacer leads identified within the right ventricle. Normal systolic function. Atria Normal left atrium. Normal right atrium. Mitral Valve Normal mitral valve. Mild (1+) eccentric mitral valve insufficiency. Tricuspid Valve Normal tricuspid valve. Mild (1+) tricuspid valve insufficiency. Aortic Valve Trisinus/trileaflet aortic valve. Mild focal aortic valve calcification. Peak aortic valve gradient 33 mmHg. Mean aortic valve gradient 19 mmHg. Mild aortic stenosis. Pulmonic Valve Normal pulmonic valve. Great Vessels Normal aortic root. The pulmonary artery is normal size. Inferior vena cava collapse with respiration. Pericardium/Pleural No pericardial effusion. MMode/2D Measurements & Calculations LVIDd: 4.1 cm IVSd: 0.74 cm LVOT diam: 2.0 cm LVIDs: 3.0 cm LVPWd: 1.1 cm LVOT area: 3.2 cm2 RVDd: 2.8 cm FS: 27.2 % Ao root diam: 3.1 cm LAV(MOD-bp): 37.7 ml LVAd ap4: 28.4 cm2 LAV(MOD-bp) Indexed: 22.9 ml/m2 LVLd ap4: 8.5 cm LAV(MOD-sp2): 38.8 ml EDV(MOD-sp4): 79.3 ml LAV(MOD-sp4): 32.1 ml EDV(sp4-el): 80.0 ml LVAs ap4: 13.9 cm2 LVLs ap4: 7.1 cm ESV(MOD-sp4): 24.3 ml ESV(sp4-el): 23.2 ml EF(MOD-sp4): 69.3 % EF(sp4-el): 71.0 % SV(MOD-sp4): 55.0 ml SV(sp4-el): 56.8 ml LA A4 area: 14.8 cm2 SI(MOD-sp4): 33.4 ml/m2 LA dimension(2D): 3.5 cm RA A4 area: 11.7 cm2 Time Measurements MV dec time: 0.36 sec Doppler Measurements & Calculations MV E max nico: 71.9 cm/sec Lat Peak E' Nico: 13.6 cm/sec Med Peak E' Nico: 7.9 cm/sec MV A max nico: 79.4 cm/sec E/E' lat: 5.3 E/E' med: 9.1 MV E/A: 0.91 MV V2 max: 96.0 cm/sec Ao V2 max: 290.7 cm/sec MV max P.7 mmHg MV dec slope: 207.0 cm/sec2 Ao max P.9 mmHg MV V2 mean: 56.9 cm/sec Ao V2 mean: 200.9 cm/sec MV mean P.5 mmHg Ao mean P.9 mmHg MV V2 VTI: 38.6 cm Ao V2 VTI: 73.6 cm AV (velocity ratio): 0.35 MVA(VTI): 2.1 cm2 JAJA(I,D): 1.1 cm2 JAJA(V,D): 1.3 cm2 LV V1 max: 119.0 cm/sec SV(LVOT): 81.3 ml PA V2 max: 89.1 cm/sec LV V1 max P.7 mmHg PA V2 mean: 70.1 cm/sec LV V1 mean P.9 mmHg LV V1 mean: 79.1 cm/sec LV V1 VTI: 25.5 cm TR max nico: 248.6 cm/sec TR max P.7 mmHg ECHO/Echo Complete Interpretation Summary Normal LV size. Left ventricular systolic function is normal. The left ventricular ejection fraction is 70 %. Stage 1 diastolic dysfunction. Mild focal aortic valve calcification. Mild aortic stenosis. Mean aortic valve gradient 19 mmHg. Ordering Physician: Karolina Blanc Referring Physician: Karolina Blanc Performed By: Angela Kulkarni RCS
== END | disposition home or self-care (01) ==
PROVIDERS: PCP Internal Medicine; Referring Provider Physician Assistant Medical; Visit Provider Physician Assistant Medical
DX: R01.1 Cardiac murmur, unspecified (principal)
CPT/HCPCS: 93306

== ENCOUNTER → 2025-02-15 | Outpatient (CLI) | payer MEDICARE, BC, SELFPAY ==
[2025-02-15 15:14] LABS: Hematocrit 39.5 % (37-47); Hemoglobin 13.0 g/dL (12.0-15.0); Immature Granulocytes Count 0.010 X10^3/uL (0.0-0.0); Mean Corp Hgb Conc 32.9 g/dL (32-36); Mean Corpuscular Volume 91.9 fL (81-99); Mean Platelet Vol. 11.2 fl (6.2-12.0); NRBC Flagged by Analyzer 0 % (0-5); Platelet Count 161 K/mm3 (150-450); RBC Distribution Width CV 13.7 % (11.6-14.6); RBC Distribution Width SD 46.3 fl (35.1-43.9); Red Blood Count 4.30 M/mm3 (4.2-5.4); White Blood Count 6.2 K/mm3 (4.4-11.0)
[2025-02-15 15:19] LABS: AST(SGOT) 28 U/L (<=31); Alanine Aminotransfer ALT/SGPT 26 U/L (<=34); Albumin, Serum 4.1 g/dL (3.4-4.8); Alkaline Phosphatase 59 U/L (35-104); Anion Gap 10 (5-15); BUN 16 mg/dL (4-19); BUN/Creat Ratio 17.5 RATIO (10-20); Calcium,Total 9.3 mg/dL (7.6-11.0); Carbon Dioxide 26.1 mmol/L (21.0-32.0); Chloride 106 mmol/L (98-108); Globulin 2.5 g/dL (2.2-4.2); Glucose 93 mg/dL (70-99); Potassium 4.1 mmol/L (3.3-5.1)
== END | disposition home or self-care (01) ==
LOC: MTLAB 13:18
PROVIDERS: PCP Internal Medicine; Referring Provider Internal Medicine Rheumatology; Visit Provider Internal Medicine Rheumatology
DX: L40.59 Other psoriatic arthropathy (principal); Z79.899 Other long term (current) drug therapy
CPT/HCPCS: 36415; 80053; 85025

== ENCOUNTER → 2025-03-01 | Outpatient (CLI) | payer MEDICARE, BC, SELFPAY ==
[2025-03-01 11:53] LABS: Color, Urine Yellow (Yellow); Glucose, Dipstick Normal (Normal); Ketone-Dipstick 5 mg/dl (Negative); Leukocyte Esterase-Dipstick 500 /ul (Negative); Nitrite-Dipstick Negative (Negative); Occult Blood-Urine 50 /ul (Negative); Protein-Dipstick 30 mg/dl (Negative); Specific Gravity, Urine 1.025 (1.002-1.030); Urine Bilirubin Dipstick Negative (Negative)
[2025-03-01 12:12] LABS: Mucous, Urine 2+ /hpf (<or=2+)
[2025-03-01 12:14] LABS: Red Blood Cells-Urine 0-5 SEEN /hpf (0-5); Squamous Epithelial Cells - UA 0-5 SEEN /hpf (5-10)
== END | disposition home or self-care (01) ==
LOC: LAB 11:06
PROVIDERS: PCP Internal Medicine; Referring Provider Nurse Practitioner Family; Visit Provider Nurse Practitioner Family
DX: R31.9 Hematuria, unspecified (principal)
CPT/HCPCS: 81001; 87086; 87088

== ENCOUNTER → 2025-03-28 | Outpatient (CLI) | payer MEDICARE, BC, SELFPAY ==
[2025-03-28 12:35] LABS: Mucous, Urine 0 SEEN /hpf (<or=2+); Red Blood Cells-Urine 0 SEEN /hpf (0-5); Squamous Epithelial Cells - UA 0 SEEN /hpf (5-10)
[2025-03-28 13:28] LABS: Color, Urine Yellow (Yellow); Glucose, Dipstick Normal (Normal); Ketone-Dipstick Negative (Negative); Leukocyte Esterase-Dipstick 500 /ul (Negative); Nitrite-Dipstick Positive (Negative); Occult Blood-Urine 25 /ul (Negative); Protein-Dipstick 30 mg/dl (Negative); Specific Gravity, Urine 1.025 (1.002-1.030); Urine Bilirubin Dipstick Negative (Negative)
== END | disposition home or self-care (01) ==
LOC: LAB 12:28
PROVIDERS: PCP Internal Medicine; Referring Provider Internal Medicine; Visit Provider Internal Medicine
DX: R30.0 Dysuria (principal)
CPT/HCPCS: 81001; 87077; 87086; 87088; 87186

== ENCOUNTER → 2025-04-30 | Outpatient (CLI) | payer MEDICARE, BC, SELFPAY ==
--- NOTE | 2025-04-30 13:20 | CYSPIN_PTH ---
PATIENT: RADHA SAWYER LOC: [facility] U#:[id number] AGE/SX: 70/F ROOM: RE04/30/[address]: Dr. Mary Ann Hartman MD : 1955 BED: DIS: 04/30/2025 SPEC #: [id number] RECD: 05/01/25 08:35 STATUS: LEE REQ #: [id number] LAMONT: 04/30/25 13:[address]: Mary Ann Hartman DEPT: CYTOLOGY RECD BY: Modesta Araujo ENTERED: 05/01/25 08:36 SP TYPE: CYSPIN FL OTHR DR: Dr. Devin Young MD Tissues: Urine Procedures: Pap Stain (control) Special Stain Group II Cytospin Fluid HEADER OPERATION: Urine PRE-OP DIAGNOSIS: Gross hematuria TISSUE SUBMITTED: Urine DIAGNOSIS CYTOLOGY A. Urine, nos (cytospin): - No malignant cells identified. - Mild acute inflammation noted, with abundant malathi-shaped bacteria. CYTOLOGY STUDY Slides are reviewed. CYTOLOGY GROSS Received is 60 ml of dark gold cloudy fluid labeled with the patient's name and and designated per the requisition as "urine." Submitted for cytology preparation. SC:pastor 04/30/2025 CPT: 74944
[2025-04-30 16:23] LABS: Cytology, Body Fluid / CSF SEE PATHOLOGY REPORT
--- OUTSIDE RECORDS SUMMARY | 2025-04-30 17:52 | XMS RPT_ITS | CCD ---
Author Organization [facility] Care Team Providers Care Device Processing Engineer Name Role Phone Janice MARRUFO, Lauren Garcia Unavailable [phone] Breanna RN, Tana Hernandes Unavailable Unavailable Breanna RN, Tana M Unavailable Unavailable Hector RN, Korin M Unavailable Unavailabl radha Young RN, Korin M Unavailable Unavailabl radha Biswas MD, Barrett Botello Unavailable SUSIE Carlos, Tana Hernandes Unavailable Unavailable [place] SANDWICH PEDDLER, Zo S Unavailable [phone] SUSIE Carlos, [...] Care Provider Unavailabl e Hannah MARRUFO, Melba Garcia Primary Care Provider [phone] MELBA YOUNG Primary Care Unavailable Hannah MARRUFO, Dr. Beltran Primary Care Provider Hannah MARRUFO, Dr. Beltran Attending Provider [phone] Hannah MARRUFO, Dr. Beltran Referring Provider [phone] True MARRUFO, Dr. Hyde Attending Provider [phone] You MARRUFO, Dr. Brown Attending Provider You MARRUFO, Dr. Brown Referring Provider Hannah MARRUFO, Dr. Beltran Primary Care Provider Hannah MARRUFO, Dr. Beltran Primary Care Provider You MARRUFO, Dr. Brown Attending Provider You MARRUFO, Dr. Brown Referring Provider True MARRUFO, Dr. Hyde Attending Provider [phone] Hannah MARRUFO, Dr. Beltran Attending Provider [phone] Hannah MARRUFO, Dr. Beltran Referring Provider [phone] Hannah MARRUFO, Dr. Beltran Primary Care Provider True MARRUFO, Dr. Hyde Attending Provider [phone] You MARRUFO, Dr. Brown Attending Provider You MARRUFO, Dr. Brown Referring Provider Olivia Carlos Attending Provider Unavailable Karolina Mccabe Attending Provider [phone] Hannah MARRUFO, Dr. Beltran Primary Care Physician Hannah MARRUFO, Dr. Beltran Attending Physician [phone] True MARRUFO, Dr. Hyde Attending Physician You MARRUFO, Dr. Brown Attending Physician Karolina Mccabe Attending Physician [phone] Vellanki, Stephanie Referring Unavailable Oleghe, Efewongbe Primary Care Unavailable Vellanki, Stephanie Attending Unavailable Vellanki, Stephanie Attending Unavailable Vellanki, Stephanie Referring Unavailable Oleghe, Efewongbe Primary Care Unavailable Vellanki, Stephanie Attending Unavailable Vellanki, Stpehanie Referring Unavailable Oleghe, Efewongbe Primary Care Unavailable Oleghe, Efewongbe Primary Care Unavailable Karolina Mccabe Referring Unavail able Karolina Mccabe Attending Unavail able Vellanki, Stephanie Referring Unavailable Oleghe, Efewongbe Primary Care Unavailable Vellanki, Stephanie Attending Unavailable Oleghe, Efewongbe Primary Care Unavailable True, Barrett Attending Unavailable Oleghe, Efewongbe Primary Care Unavailable True, Stanley Attending Unavailable Oleghe, Efewongbe Attending Unavailable Oleghe, Efewongbe Referring Unavailable Oleghe, Efewongbe Primary Care Unavailable Oleghe, Efewongbe Primary Care Unavailable True, Barrett Attending Unavailable Oleghe, Efewongbe Attending Unavailable Oleghe, Efewongbe Primary Care Unavailable Oleghe, Efewongbe Referring Unavailable Oleghe, Efewongbe Primary Care Unavailable True, Stanley Attending Unavailable NURSE, BIM Attending Unavailable Oleghe, Efewongbe Primary Care Unavailable Oleghe, Efewongbe Referring Unavailable True, Barrett Attending Unavailable Oleghe, Efewongbe Primary Care Unavailable Oleghe, Efewongbe Primary Care Unavailable Oleghe, Efewongbe Referring Unavailable Karolina Mccabe Attending Unavail able Oleghe, Efewongbe Attending Unavailable Oleghe, Efewongbe Referring Unavailable Oleghe, Efewongbe Primary Care Unavailable Oleghe, Efewongbe Primary Care Unavailable Ungerer, Elena Referring Unavailable Ungerer, Elena Attending Unavailable Oleghe, Efewongbe Primary Care Unavailable Oleghe, Efewongbe Referring Unavailable True, Barrett Attending Unavailable Oleghe, Efewongbe Referring Unavailable Oleghe, Efewongbe Primary Care Unavailable Ungerer, Elena Attending Unavailable Oleghe, Efewongbe Primary Care Unavailable Ungerer, Elena Attending Unavailable [place], Efewongbe Referring Unavailable Oleghe, Efewongbe Primary Care Unavailable Barrett Biswas Attending Unavailable Vellanki, Stephanie Referring Unavailable Oleghe, Efewongbe Primary Care Unavailable Vellanki, Stephanie Attending Unavailable Isiahlanlawson, Stephanie Referring Unavailable You, Stephanie Attending Unavailable Hannah, Kavonjosefinaongbe Primary Care Unavailable Hannah MARRUFO, Dr. Beltran Primary Care Physician Dr. Melba Young MD Referring Provider [phone] True MARRUFO, Dr. Hyde Attending Physician Karolina Mccabe Referring Provider [phone] Myla SANDWICH PEDDLER-CElena Attending Physician Myla SANDWICH PEDDLER-C, Elena Referring Provider [phone] Medications Current Medications Medication Drug Class(es) Dates Sig (Normalized) Sig (Original) dicyclomine hydrochloride 10 mg oral capsule (3 sources) Anticholinergic Start: 03-20-2020 take 1 capsule by mouth every eight hours as needed dicyclomine (BENTYL) 10 mg capsule Take 1 capsule by mouth three times daily as needed (bowel spasm). 20 capsule 2 03/20/2020 Active Avxabyg-Edhwzzr-Sjyu con-Terbin 4-2-1-4 % solution (8 sources) Start: 10-24-2024 Start: 10-24-2024 Flucona-Ibupro y-Tthpiqm-Usoenw 4-2-1-4 % solution Active mL TOPICAL TWICE A DAY October 24, 2024 12:00am Left great toe folic acid 1 mg oral tablet (20 sources) Start: 04-07-2017 take 2 mg by mouth once daily Folic Acid Active 2 MG PO DAILY@0800 April 07, 2017 1:00am Start: 02-23-2017 take 2 tablets by mo [facility] once daily Start: 01-20-2017 FOLIC ACID 1 M G TABS FOLIC ACID [id number] Lauren Camacho MD latanoprost 0.05 mg/ml ophth almic solution (20 sources) Prostaglandin Analog Start: 08-15-2020 take 1 drop(s) into the eye(s) once daily LATANOPROST OPHTHALMIC Use 1 Drop in eye s once daily. Active leucovorin 15 mg oral tablet (20 sources) Folate Analog Start: 08-20-2020 take 1 tablet by mouth once methotrexate 2.5 mg oral tablet (20 sources) Folate Analog Metabolic Inhibitor Start: 04-07-2017 Start: 04-07-2017 Methotrexate S odium Active 12.5 MG PO HERNANDEZ April 07, 2017 1:00am Start: 01-20-2017 METHOTREXATE 2 .5 MG TABS METHOTREXATE SODIUM [id number] Lauren Camacho MD take 1 tablet by mouth once meth otrexate 2.5 mg tablet Take 2.5 mg by mouth one time only. Take 6 tablets weekly. Active nitrofurantoin, macrocrystals 25 mg / nitrofurantoin, monohydrate 75 mg oral capsule (20 sources) Nitrofuran Antibacterial Start: 03-01-2025 take 1 capsule by mouth every twelve hours at mealtime Start: 06-27-2024 End: 07-02-2024 take 1 capsule [...] (is on for 6 months) NITROFURANTOIN MACROCRYSTAL [id number] Ankita Norris zolpidem tartrate 10 mg oral tablet (3 sources) gamma-Aminobutyric Acid-ergic Agonist Start: 02-28-2024 take 10 mg by mouth every twenty-four hours as needed zolpidem (AMBIEN) 10 mg Take 10 mg by mouth at bedtime as needed. 02/28/2024 Active Completed/Discontinued Medications Medication Drug Class(es) Dates Sig (Normalized) Sig (Original) alendronic acid 70 mg oral tablet (20 sources) Bisphosphonate Start: 08-20-2020 End: 11-19-2024 take 1 tablet by mouth every week Alendronate 70 mg tablet Discontinued 70 mg PO EVERY WEEK 12 90 1 May 22, 2024 3:01pm November 19, 2024 1:19pm aspirin 81 mg oral tablet (20 sources) Platelet Aggregation Inhibitor, Nonsteroidal Anti-inflammatory Drug Start: 05-01-2014 take 1 tablet by mouth once daily ASPIRIN 81 MG TABS One tablet by mouth daily ASPIRIN [id number] Barrett Biswas MD Start: 05-01-2014 End: 01-20-2017 take 1 tablet by mouth once daily ASPIRIN EC 81 MG TBEC One tablet by mouth daily ASPIRIN [id number] Lauren Camacho MD Start: 05-01-2014 take 1 tablet by jodie th once daily ASPIRIN 81 MG TABS One tablet by mouth daily ASPIRIN [id number] Barrett Biswas MD Calcium Carbonate / Vitamin D (20 sources) Start: 08-12-2010 take 1 tablet by mouth once daily CALCIUM CARBONATE-VITAMIN D 600-125 MG-UNIT TABS One tablet by mouth daily CALCIUM CARBONATE-VITAMIN D [id number] Ankita M Jr Start: 08-12-2010 End: 01-20-2017 take 1 tablet by mouth once daily CALCIUM CARBONATE-VITAMIN D 600-125 MG-UNIT TABS One tablet by mouth daily CALCIUM CARBONATE-VITAMIN D [id number] Lauren Camacho MD Start: 08-12-2010 End: 01-20-2017 take 1 tablet by mouth once daily CALCIUM CARBONATE-VITAMIN D 600-125 MG-UNIT TABS One tablet by mouth daily CALCIUM CARBONATE-VITAMIN D [id number] Lauren Camacho MD Start: 08-12-2010 take 1 tablet by jodie th once daily CALCIUM CARBONATE-VITAMIN D 600-125 MG-UNIT TABS One tablet by mouth daily CALCIUM CARBONATE-VITAMIN D [id number] Ankita Norris citalopram 20 mg oral tablet (20 sources) Serotonin Reuptake Inhibitor Start: 08-12-2010 End: 03-16-2012 take 1 tablet by mouth every other day CITALOPRAM HYDROBROMIDE 20 MG TABS 1 tablet by mouth every other day CITALOPRAM HYDROBROMIDE [id number] Barrett Biswas MD clopidogrel 75 mg oral tablet (20 sources) P2Y12 Platelet Inhibitor Start: 09-22-2016 End: 10-27-2016 take 1 tablet by mouth once daily PLAVIX 75 MG TABS One tablet by mouth daily CLOPIDOGREL BISULFATE [id number] Barrett Biswas MD estradiol 0.1 mg/ml vaginal cream (20 sources) Estrogen Start: 06-07-2018 End: 05-31-2022 Estradiol 0.01 % (0.1 mg/gram) cream Discontinued 0 VAGINAL .COMPLEX 42.5 2 July 02, 2020 1:00am May 31, 2022 [...] vaginal opening 2-3 nights per week ESTRADIOL [id number] Zo S José Miguel SANDWICH PEDDLER Start: 02-09-2017 ESTRACE 0.1 MG /GM CREA 1gm per vagina 3 nights per week ESTRADIOL [id number] Zo S José Miguel SANDWICH PEDDLER eye drops (20 sources) Start: 07-02-2020 End: 08-15-2020 eye drops Discontinued EACH EYE July 02, 2020 11:42am August 15, 2020 12:08pm Start: 07-02-2020 End: 08-15-2020 eye drops Discontinued EACH EYE 0 July 02, 2020 1:00am August 15, 2020 12:08pm for glaucoma Start: 07-02-2020 End: 08-15-2020 eye drops Discontinued [...] Two tablets by mouth daily HYDROXYCHLOROQUINE SULFATE [id number] Barrett Biswas MD Start: 03-01-2012 take 1 tablet by jodie once daily hydroxychloroquine (PLAQUENIL) 200 mg ORAL tablet Take 200 mg by mouth once daily. 0 03/01/2012 Active hydrOXYzine hydrochloride 25 mg oral tablet (20 sources) Antihistamine Start: 05-31-2022 End: 01-16-2025 take 1 tablet by mouth three times daily as needed for anxiety Hydroxyzine Hcl 25 mg tablet Discontinued 25 mg PO THREE TIMES A DAY as needed for anxiety 90 3 March 09, 2024 4:25pm January 16, 2025 10:50am metoprolol tartrate 25 mg oral tablet (20 sources) beta-Adrenergic Radha Start: 09-22-2016 End: 12-21-2016 take 1 tablet by mouth twice daily METOPROLOL TARTRATE 25 MG TABS One tablet by mouth twice daily METOPROLOL TARTRATE [id number] Linh Sanchez RN potassium chloride 20 meq extended release oral tablet (20 sources) Start: 09-23-2016 End: 01-20-2017 take 2 tablets by mouth once daily POTASSIUM CHLORIDE ER 20 MEQ CR-TABS Two tablets by mouth daily x 2 days. POTASSIUM CHLORIDE [id number] Barrett Biswas MD valACYclovir 1000 mg oral tablet (12 sources) Herpesvirus Nucleoside Analog DNA Polymerase Inhibitor, Herpes Simplex Virus Nucleoside Analog DNA Polymerase Inhibitor, Herpes Zoster Virus Nucleoside Analog DNA Polymerase Inhibitor Start: 01-20-2017 End: 02-09-2017 take 1 tablet by mouth once daily VALTREX 1 GM TABS One tablet by mouth daily VALACYCLOVIR HCL [id number] Lauren Camacho MD Start: 01-20-2017 take 1 tablet by jodie th once daily VALTREX 1 GM TABS One tablet by mouth daily VALACYCLOVIR HCL [id number] Lauren Camacho MD Problems Active Problems Problem Classification Problem Date Documented Da te Episodic/Chronic Acute and unspecified renal failure (18 sources) Injury of kidney; Translations: [Acute kidney failure, unspecified] 06-21-2022 Episodic Anxiety disorders (20 sources) Anxiety; Translations: [Anxiety disorder, unspecified] 05-31-2022 Chronic Cardiac dysrhythmias (20 sources) Atrial fibrillation; Translations: [Paroxysmal atrial fibrillation] Onset: 1 08-12-2010 Chronic Coagulation and hemorrhagic disorders (20 sources) Heterozygous Factor V Leiden mutation; Translations: [Activated protein C resistance] 08-15-2020 Chronic Complication of device; implant or graft (20 sources) Malfunction of cardiac pacemaker; Translations: [Breakdown (mechanical) of cardiac pulse generator (battery), initial encounter] 04-11-2017 Episodic Conduction disorders (20 sources) Cardiac pacemaker in situ; Translations: [Zbhqc-Ihvisahdp-Pyhnw pattern] Onset: 8 08-12-2010 Chronic Disorders of lipid metabolism (20 sources) Hyperlipidemia; Translations: [Hyperlipidemia, unspecified] Onset: 4 11-22-2022 Chronic Genitourinary symptoms and ill-defined conditions (4 sources) Scalding pain on urination ; Translations: [Dysuria] 06-27-2024 Episodic Glaucoma (20 sources) Glaucoma; Translations: [Unspecified glaucoma] 08-15-2020 Chronic Heart valve disorders (20 sources) Heart murmur; Translations: [Cardiac murmur, unspecified] Onset: 5 11-22-2022 Episodic Immunizations and screening for infectious disease (13 sources) Encounter for immunization; Translations: [Need for prophylactic vaccination and inoculation against unspecified single disease] Onset: 5 03-14-2023 Episodic Menopausal disorders (4 sources) Atrophic vaginitis; Translations: [Postmenopausal atrophic vaginitis] Onset: 7 02-09-2017 Chronic Osteoporosis (20 sources) Osteoporosis; Translations: [Age-related osteoporosis without current pathological fracture] Chronic Other diseases of bladder and urethra (3 sources) Disorder of bladder; Translations: [Bladder disorder, unspecified] Onset: 9 12-05-2008 Chronic Other diseases of bladder and urethra (17 sources) Overactive bladder; Translations: [Overactive bladder] 01-13-2024 Chronic Other gastrointestinal disorders (3 sources) Irritable bowel syndrome; Translations: [Mixed irritable bowel syndrome] Onset: 0 03-20-2020 Chronic Other gastrointestinal disorders (20 sources) Chronic constipation; Translations: [Other constipation] 11-25-2021 Episodic Other gastrointestinal disorders (6 sources) Other constipation; Translations: [Constipation, unspecified] Episodic Other gastrointestinal disorders (18 sources) Constipation; Translations: [Constipation, unspecified] 01-13-2024 Episodic Other inflammatory condition of skin (1 source) Other psoriatic arthropathy; Translations: [Other psoriatic arthropathy] Onset: 5 Chronic Other screening for suspected conditions (not mental disorders or infectious disease) (20 sources) Patient encounter status; Translations: [Encounter for screening for malignant neoplasm of colon] Onset: 6 04-11-2017 Episodic Residual codes; unclassified (13 sources) History of eye AND/OR adnexa surgery; Translations: [Other specified postprocedural states] 11-22-2022 Episodic Comment on above: CATARACT SURGERY (R) 09/2022; (L) 10/2022 Rheumatoid arthritis and related disease (20 sources) Rheumatoid arthritis; Translations: [Rheumatoid arthritis, unspecified] Chronic Unclassified (1 source) Other supraventricular tachycardia; Translations: [Other supraventricular tachycardia] Onset: 5 Unclassified (1 source) R31.9 - Hematuria, unspecified Urinary tract infections (2 sources) Acute urinary tract infection; Translations: [Urinary tract infection, site not specified] 03-15-2024 Episodic Past or Other Problems Problem Classification Problem Date Documented Da te Episodic/Chronic Cardiac dysrhythmias (19 sources) Palpitations; Translations: [Palpitations] Onset: 1 08-12-2010 Episodic Nonspecific chest pain (19 sources) Chest pain, unspecified; Translations: [Chest pain, unspecified] Onset: 1 08-12-2010 Episodic Other bone disease and musculoskeletal deformities (1 source) Other specified disorders of bone density and structure, other site; Translations: [Other specified disorders of bone density and structure, other site] Onset: 5 Episodic Other circulatory disease (7 sources) Carotid [...] Results Test Name Value Interpretation Reference Range Facility Urine Cultureon 03-03-2025 URC Below infection level. Mixed Gram Positive Organisms [place] Count 1000-10,000 MIXC Mixed contaminants. Submit a new specimen if indicated. [facility] Comment on above: Performed By: #### M 100.2200, L400.0001 #### [facility] [address] [place], [address] Bilirubin Test strip Ql (U)O rdered By: Elena Lanza on 03-01-2025 Bilirubin Ql (U) Negative Negative [facility] Internal Medicine Office Vis iton 03-01-2025 Internal Medicine Office Visit [facility] Internal Medicine [address] [place] [address] [place] [address] OFFICE VISIT Date of Service: 03/01/25 MR#: [id number] Acct: [id number] Name: GISEL SAWYER Rep #: [id number] : 1955 Provider: DEBRA del real Age/Sex: 69/F [place] [facility] Status: Signed Intake Vital Signs 01/16/25 10:41 03/01/25 08:42 Height 5 ft 7 in 5 ft 7 in Weight: 126 lb BMI 19.7 BP 128/88 H Blood Pressure Location Lt brachial Position Sitting Respiration 18 Pulse 92 Pulse Source Monitor Temp 96.8 F L Temp Source Temporal Pulse Oximetry (%) 98 Oxygen Delivery Method room air Intake Visit Reasons: blood noted after urinating Chief Complaint: blood noted after urinating Is patient in pain?: No Allergies No Known Allergies Allergy (Verified 03/01/25 08:43) Medications ???Medication ???Instructions ???Recorded ???Confirmed ???Type folic acid 1 mg tablet 2 mg PO DAILY@0800 04/07/17 History methotrexate sodium 2.5 mg tablet 12.5 mg PO HERNANDEZ 04/07/17 03/01/25 H istory latanoprost 0.005 % eye drops 1 drp ophthalmic (eye) DAILY 08/1503/01/25 History leucovorin calcium 15 mg tablet 15 mg PO ONCE 08/20/20 03/01/25 Hi story fluconazole 4 %-ibuprofen 2 ml topical BID 10/24/24 03/01/25 H istory %-itraconazole 1 %-terbin 4 % topical soln alendronate 70 mg tablet 70 mg PO QWEEK 3 months #12 tabs 0 11/19/24 03/01/25 Rx Have you fallen in the past year?: No PFSH Medical History Paroxysmal atrial tachycardia Flu vaccine need OAB (overactive bladder) Constipation Murmur Hyperlipidemia FREDERIC (acute kidney injury) Health care maintenance Anxiety Chronic constipation Preoperative evaluation to rule out surgical contraindication Fnomo-Wqyiocejn-Dql te (WPW) syndrome Osteoporosis Glaucoma Factor 5 [...] at home: Yes additional social history: - [employer] 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 Patient states 2 nights ago she noticed bright red blood when she wiped. She believes it is coming from the front not her vagina. She states yesterday that on there was always somewhat light pink when she wiped she did not notice blood in the toilet. She has had no fever no chills no abdominal pain no increase in urgency or frequency. Patient does not have a long history of bladder frequency and states she previously had recurrent UTIs. Her sister was previously diagnosed with bladder cancer so she is concerned about the possibility of this. No other concerns. ROS Const Constitutional: No body ache, chills, excessive sweating, fatigue, fever(s), frequent falls, headache(s), snoring, weight change, sleep problems, abnormal sleep pattern or change in appetite Eyes Eyes: No blurry vision, change in vision, eye pain or Light sensitivity ENT ENT: No abnormal hearing, ear or mastoid pain, tinnitus, nasal congestion, headache(s), neck pain or sore throat Resp Respiratory: No cough, shortness of breath, snoring or wheezing Cardio Cardiology: No chest pain at rest, chest pain with exertion, excessive sweating, shortness of breath, dyspnea on exertion, lightheadedness, orthopnea or palpitations Gastro GI: No abdominal pain, change in bowel habits, constipation, cramping, diarrhea, nausea/dyspepsia or vomiting Genitourinary-Femal e: No burning urination, painful urination, urinary incontinence, urinary frequency, abnormal vaginal bleeding or pelvic pain Musc Musculoskeletal: No abnormal gait, joint pain, back pain, limited range of motion, neck pain, numbness or tingling (more content not included)... Normal [facility] Ketones Test strip Ql (U)Ord ered By: Elena Lanza on 03-01-2025 Ketones Ql (U) 5 mg/dl High Negative [facility] Microscopic analysis of urin e for red blood cells (RBC)Ordered By: Elena Lanza on 03-01-2025 Microscopic analysis of urine for red blood cells (RBC) 0-5 SEEN /hpf 0-5 [facility] Mucus LM Ql (Urine sed)Order ed By: Elena Lanza on 03-01-2025 Mucus Ql (Urine sed) 2+ /hpf [facility] Nitrite Test strip Ql (U)Ord ered By: Elena Lanza on 03-01-2025 Nitrite Ql (U) Negative Negative [facility] Protein Test strip Ql (U)Ord ered By: Elena Lanza on 03-01-2025 Protein Ql (U) 30 mg/dl High Negative [facility] Squamous epithelial cells de tection in urine sediment by light microscopyOrdered By: Elena Lanza on 03-01-2025 Epithelial cells.squamous LM Ql (Urine sed) 0-5 SEEN /hpf 5-10 [facility] Urinalysis, Completeon 03-01 EPI,SQUAMOUS 0-5 SEEN Normal 5-10 [facility] Comment on above: Order Comment: LUIS DANIEL CTOR TO SPECIFY Performed By: #### M 100.2200, L400.0001 #### [facility] [address] [place], [address] RBC 0-5 SEEN Normal 0-5 [facility] Comment on above: Order Comment: COLLE CTOR TO SPECIFY Performed By: #### M 100.2200, L400.0001 #### [facility] [address] [place], [address] WBC 5-10 SEEN Normal 0-5 [facility] Comment on above: Order Comment: LUIS DANIEL CTOR TO SPECIFY Performed By: #### M 100.2200, L400.0001 #### [facility] [address] [place], [address] BACTERIA 1+ /hpf Normal None Seen [facility] Comment on above: Order Comment: LUIS DANIEL CTOR TO SPECIFY Performed By: #### M 100.2200, L400.0001 #### [facility] [address] [place], [address] Mucus Ql (Urine sed) 2+ /hpf Normal [facility] Comment on above: Order Comment: LUIS DANIEL CTOR TO SPECIFY Performed By: #### M 100.2200, L400.0001 #### [facility] [address] [place], [address] Urine clarityOrdered By: Gemini Lanza on 03-01-2025 Clarity (U) Sl. Cloudy Clear [facility] Urine color determinationOrd ered By: Elena Lanza on 03-01-2025 Color (U) Yellow Yellow [facility] Urine cultureOrdered By: Gemini Lanza on 03-01-2025 Bacteria identified Cx Nom (U) Positive Abnormal [facility] Urine glucose detectionOrder ed By: Elena Lanza on 03-01-2025 Glucose Ql (U) Normal mg/dl Normal [facility] Urine leukocyte esterase det ection by dipstickOrdered By: Elena Lanza on 03-01-2025 Leukocyte esterase Test strip Ql (U) 500 /ul High Negative [facility] Urine pHOrdered By: Elena Lanza on 03-01-2025 pH (U) 5.0 [pH] 5.0 - 8.0 [facility] Urine sediment bacteria coun t by microscopy (number/high power field)Ordered By: Elena Lanza on 03-01-2025 Bacteria LM.HPF (Urine sed) [#/Area] 1 /[HPF] None Seen [facility] Urine specific gravity measu rementOrdered By: Elena Lanza on 03-01-2025 Specific gravity (U) [Rel density] 1.025 1.002-1.030 [facility] Urine urobilinogen measureme ntOrdered By: Elena Lanza on 03-01-2025 Urobilinogen Ql (U) Normal mg/dl Normal [facility] White blood cell countOrdere d By: Elena Lanza on 03-01-2025 White blood cell count 5-10 SEEN /hpf 0-5 [facility] Office Visit Reporton 2024 Office Visit Report [facility] [address] [place] [address] OFFICE VISIT Date of Service: 02/21/25 MR#: [id number] Acct: [id number] Patient: GISEL SAWYER Rep #: [id number] : 1955 Provider: JETT NURSE Age/Sex: 69/F Location: [facility] Status: Signed Intake Vital Signs 01/16/25 10:41 Height 5 ft 7 in Intake Visit Reasons: FLU SHOT Chief Complaint: 6 M FU Allergies No Known Allergies Allergy (Verified 01/16/25 10:49) Have you fallen in the past year?: No Immunizations Fluad 65yr up(PF)45 mcg(15 mcgx3)/0.5 mL intramuscular syringe Performing Provider: DEBRA Das Performing Location: [facility] Administered by: Ramila Vaughn LPN on 02/21/25 10:13 Dose Route Admin Location Dispensed Lot Number Expiration Date Package NDC NDC Filing And Polishing Supervisor 45 mcg IM Left Deltoid 0.5 mL [id number] 09/03/25 77848-161-05 [id number] [employer]. VIS Given Date VIS Provided VIS Publication Date 02/21/25 Single Vaccine 24 Eligibility Eligibility Date Funding Source Not Applicable Administration Comments: pt presented to the office for flu immunization pt completed and signed consent form, VIS given requested left arm for injection, pt tolerated well no concerns. pt denies any adverse/allergic reactions to influenza immunizations in the past. Assessment and Plan Assessment and Plan Orders: Orders Influenza Immunization Today Z23 - Encounter for immunization Clinical Quality Measures Falls Risk Screening/Assistive Devices Have you fallen in the past year?: No 02/21/25 1337 Date Elena Sánchezigner Signature: Date (if applicable) CC: Normal [facility] Absolute lymphocyte countOrd ered By: Stephanie Orta on 02-15-2025 Lymphocytes Auto (Unsp spec) [#/Vol] 1.85 10*3/uL 0.83-4.51 [facility] Absolute neutrophil countOrd ered By: Stephanie Orta on 02-15-2025 Neutrophils (Bld) [#/Vol] 3.8 10*3/uL 2.0-7.7 [facility] Anion gap in Serum or Plasma Ordered By: Stephanie Orta on 02-15-2025 Anion gap [Moles/Vol] 10 mmol/L 5-15 [facility] Automated lymphocyte count a s percentage of total leukocytesOrdered By: Stephanie Orta on 02-15-2025 Lymphocytes/100 WBC Auto (Unsp spec) 29.7 % 19-41 [facility] BUN/creatinine ratioOrdered By: Stephanie Orta on 02-15-2025 Urea nitrogen/Creatinine [Mass ratio] 17.5 mg/mg 10- [facility] Basophil percentageOrdered B y: Stephanie Quirogalawson on 02-15-2025 Basophils/100 WBC (Bld) 0.6 % 0-1 [facility] Bilirubin, totalOrdered By: Stephanie Orta on 02-15-2025 Bilirubin [Mass/Vol] 0.33 mg/dL 0.00-1.30 [facility] CBC W/Diff, Automatedon 02-06 Absolute Lymph 1.85 X10 3/uL Normal 0.83-4.51 [facility] Comment on above: Performed By: #### L 100.0100, L500.4050 #### [facility] Laboratory [address] [place], [address] Absolute Neut 3.8 X10 3/uL Normal 2.0-7.7 [facility] Comment on above: Performed By: #### L 100.0100, L500.4050 #### [facility] [address] [place], [address] Basophils/100 WBC (Bld) 0.6 % Normal 0-1 [facility] Comment on above: Performed By: #### L 100.0100, L500.4050 #### [facility] [address] [place], [address] Eosinophils/100 WBC (Bld) 0.6 % Normal 0-5 [facility] Comment on above: Performed By: #### L 100.0100, L500.4050 #### [facility] [address] [place], [address] Erythrocyte distribution width (RBC) [Ratio] 13.7 % Normal 11.6-14.6 [facility] Comment on above: Performed By: #### L 100.0100, L500.4050 #### [facility] [address] [place], [address] Hematocrit (Bld) [Volume fraction] 39.5 % Normal 37-47 [facility] Comment on above: Performed By: #### L 100.0100, L500.4050 #### [facility] [address] [place], [address] Hemoglobin (Bld) [Mass/Vol] 13.0 g/dL Normal 12.0-15.0 [facility] Comment on above: Performed By: #### L 100.0100, L500.4050 #### [facility] [address] [place], [address] IG% 0.200 Normal 0.0-0.9 [facility] Comment on above: Result Comment: IG% - Immature Granulocytes (promyelocytes, myelocytes and metamyelocytes) > 1% indicates that a LEFT SHIFT is Present. Performed By: #### L 100.0100, L500.4050 #### [facility] [address] [place], [address] Lymphocytes/100 WBC (Bld) 29.7 % Normal 19-41 [facility] Comment on above: Performed By: #### L 100.0100, L500.4050 #### [facility] [address] [place], [address] MCH (RBC) [Entitic mass] 30.2 pg Normal 27.0-32.0 [facility] Comment on above: Performed By: #### L 100.0100, L500.4050 #### [facility] [address] [place], [address] MCHC (RBC) [Mass/Vol] 32.9 g/dL Normal 32-36 [facility] Comment on above: Performed By: #### L 100.0100, L500.4050 #### [facility] [address] [place], [address] MCV (RBC) [Entitic vol] 91.9 fL Normal 81-99 [facility] Comment on above: Performed By: #### L 100.0100, L500.4050 #### [facility] [address] [place], [address] Monocytes/100 WBC (Bld) 8.3 % Normal 0-10 [facility] Comment on above: Performed By: #### L 100.0100, L500.4050 #### [facility] [address] [place], [address] Neutrophils/100 WBC (Bld) 60.6 % Normal 47-70 [facility] Comment on above: Performed By: #### L 100.0100, L500.4050 #### [facility] [address] [place], [address] Nucleated RBC (Bld) [#/Vol] 0 10*3/uL Normal 0-5 [facility] Comment on above: Performed By: #### L 100.0100, L500.4050 #### [facility] [address] [place], [address] Platelet mean volume (Bld) [Entitic vol] 11.2 fL Normal 6.2-12.0 [facility] Comment on above: Performed By: #### L 100.0100, L500.4050 #### [facility] [address] [place], [address] Platelets (Bld) [#/Vol] 161 10*3/uL Normal 150-450 [facility] Comment on above: Performed By: #### L 100.0100, L500.4050 #### [facility] [address] [place], [address] RBC (Bld) [#/Vol] 4.30 10*6/uL Normal 4.2-5.4 [facility] Comment on above: Performed By: #### L 100.0100, L500.4050 #### [facility] [address] [place], [address] RDW SD 46.3 fl High 35.1-43.9 [facility] Comment on above: Performed By: #### L 100.0100, L500.4050 #### [facility] [address] [place], [address] WBC (Bld) [#/Vol] 6.2 10*3/uL Normal 4.4-11.0 [facility] Comment on above: Performed By: #### L 100.0100, L500.4050 #### [facility] [address] [place], [address] Carbon dioxide, total [Moles /volume] in Central venous bloodOrdered By: Stephanie Orta on 02-15-2025 CO2 [Moles/Vol] 26.1 mmol/L 21.0-32.0 [facility] Chloride assayOrdered By: Jimenez Orta on 02-15-2025 Chloride [Moles/Vol] 106 mmol/L 98-108 [facility] Comprehensive Metabolic Prof ilon 02-15-2025 Albumin [Mass/Vol] 4.1 g/dL Normal 3.4-4.8 [facility] Comment on above: Performed By: #### L 100.0100, L500.4050 #### [facility] [address] [place], [address] Albumin/Globulin [Mass ratio] 1.6 {ratio} Normal 0.9-2.4 [facility] Comment on above: Performed By: #### L 100.0100, L500.4050 #### [facility] [address] [place], [address] ALK PHOS 59 U/L Normal 35-104 [facility] Comment on above: Performed By: #### L 100.0100, L500.4050 #### [facility] [address] [place], [address] ALT [Catalytic activity/Vol] 26 U/L Normal <=34 [facility] Comment on above: Performed By: #### L 100.0100, L500.4050 #### [facility] [address] [place], [address] AST [Catalytic activity/Vol] 28 U/L Normal <=31 [facility] Comment on above: Performed By: #### L 100.0100, L500.4050 #### [facility] [address] [place], [address] Bilirubin [Mass/Vol] 0.33 mg/dL Normal 0.00-1.30 [facility] Comment on above: Performed By: #### L 100.0100, L500.4050 #### [facility] [address] [place], [address] BUN/CRE 17.5 RATIO Normal 10-20 [facility] Comment on above: Performed By: #### L 100.0100, L500.4050 #### [facility] [address] [place], [address] Calcium [Mass/Vol] 9.3 mg/dL Normal 7.6-11.0 [facility] Comment on above: Performed By: #### L 100.0100, L500.4050 #### [facility] [address] [place], [address] Chloride [Moles/Vol] 106 mmol/L Normal 98-108 [facility] Comment on above: Performed By: #### L 100.0100, L500.4050 #### [facility] [address] [place], [address] CO2 [Moles/Vol] 26.1 mmol/L Normal 21.0-32.0 [facility] Comment on above: Performed By: #### L 100.0100, L500.4050 #### [facility] [address] [place], [address] Creatinine [Mass/Vol] 0.89 mg/dL Normal 0.70-1.20 [facility] Comment on above: Performed By: #### L 100.0100, L500.4050 #### [facility] [address] [place], [address] GAP 10 Normal 5-15 [facility] Comment on above: Performed By: #### L 100.0100, L500.4050 #### [facility] [address] [place], [address] GFR/1.73 sq M.predicted among non-blacks MDRD (S/P/Bld) [Vol rate/Area] 70 mL/min/{1.73_m2} Normal >60 [facility] Comment on above: Result Comment: mL/m in/1.73m2 CKD-EPI Creatinine Equation (2020) Performed By: #### L 100.0100, L500.4050 #### [facility] [address] [place], [address] Globulin (S) [Mass/Vol] 2.5 g/dL Normal 2.2-4.2 [facility] Comment on above: Performed By: #### L 100.0100, L500.4050 #### [facility] [address] [place], [address] Glucose [Mass/Vol] 93 mg/dL Normal 70-99 [facility] Comment on above: Performed By: #### L 100.0100, L500.4050 #### [facility] [address] [place], [address] Potassium [Moles/Vol] 4.1 mmol/L Normal 3.3-5.1 [facility] Comment on above: Performed By: #### L 100.0100, L500.4050 #### [facility] [address] [place], [address] Sodium [Moles/Vol] 142 mmol/L Normal 133-145 [facility] Comment on above: Performed By: #### L 100.0100, L500.4050 #### [facility] [address] [place], [address] T PROT 6.6 g/dL Normal 5.9-8.4 [facility] Comment on above: Performed By: #### L 100.0100, L500.4050 #### [facility] [address] [place], [address] Urea nitrogen [Mass/Vol] 16 mg/dL Normal 4-19 [facility] Comment on above: Performed By: #### L 100.0100, L500.4050 #### [facility] [address] [place], [address] Eosinophil percentageOrdered By: Stephanie Orta on 02-15-2025 Eosinophils/100 WBC (Bld) 0.6 % 0-5 [facility] Erythrocyte distribution wid th ratioOrdered By: Stephnaie You on 02-15-2025 Erythrocyte distribution width (RBC) [Ratio] 13.7 % 11.6-14.6 [facility] Erythrocyte distribution wid th standard deviationOrdered By: [facility] You on 02-15-2025 Erythrocyte distribution width (RBC) [Ratio] 46.3 fl High 35.1-43.9 [facility] Glomerular filtration rate ( GFR) estimation/1.73 sq m using serum, plasma, or whole bOrdered By: Stephanie Orta on 02-15-2025 GFR/1.73 sq M.predicted among non-blacks MDRD (S/P/Bld) [Vol rate/Area] 70 mL/min/{1.73_m2} >60 [facility] Comment on above: mL/min/1.73m2 CKD-EP I Creatinine Equation (2020) Hematocrit Auto (Bld) [Volum e fraction]Ordered By: Stephanie Orta on 02-15-2025 Hematocrit (Bld) [Volume fraction] 39.5 % 37-47 [facility] Hemoglobin measurementOrdere d By: Stephanie Orta on 02-15-2025 Hemoglobin (Bld) [Mass/Vol] 13.0 g/dL 12.0-15.0 [facility] Immature granulocytes/100 WB C Auto (Bld)Ordered By: Stephanie Orta on 02-15-2025 Immature granulocytes/100 WBC (Bld) 0.200 % 0.0-0.9 [facility] Comment on above: IG% - Immature Granu locytes (promyelocytes, myelocytes and metamyelocytes) > 1% indicates that a LEFT SHIFT is Present. Laboratory - Chemistry and C hemistry - challengeOrdered By: Stephanie Orta on 02-15-2025 AST [Catalytic activity/Vol] 28 U/L <32 [facility] MCV (mean corpuscular volume ) determinationOrdered By: Stephanie Orta on 02-15-2025 MCV (RBC) [Entitic vol] 91.9 fL 81-99 [facility] Mean corpuscular hemoglobin (MCH) determinationOrdered By: Stephanie Orta on 02-15-2025 MCH (RBC) [Entitic mass] 30.2 pg 27.0-32.0 [facility] Mean corpuscular hemoglobin concentration (MCHC) determinationOrdered By: Stephanie Orta on 02-15-2025 MCHC (RBC) [Mass/Vol] 32.9 g/dL 32-36 [facility] Mean platelet volume determi nationOrdered By: Stephanie Orta on 02-15-2025 Platelet mean volume (Bld) [Entitic vol] 11.2 fL 6.2-12.0 [facility] Monocyte percentageOrdered B y: Stephanie Orta on 02-15-2025 Monocytes/100 WBC (Bld) 8.3 % 0-10 [facility] Neutrophil percentageOrdered By: Stephanie Orta on 02-15-2025 Neutrophils/100 WBC (Bld) 60.6 % 47-70 [facility] Nucleated red blood cell per centageOrdered By: Stephanie Orta on 02-15-2025 Nucleated RBC/100 WBC (Bld) [Ratio] 0 % 0-5 [facility] Platelet countOrdered By: Jimenez Orta on 02-15-2025 Platelets (Bld) [#/Vol] 161 10*3/uL 150-450 [facility] Potassium measurement (mass/ volume)Ordered By: Stephanie Orta on 02-15-2025 Potassium (Unsp spec) [Mass/Vol] 4.1 mmol/L 3.3-5.1 [facility] RBC Auto (Bld) [#/Vol]Ordere d By: Stephanie Orta on 02-15-2025 RBC (Bld) [#/Vol] 4.30 10*6/uL 4.2-5.4 [facility] Serum creatinine measurement (mass/volume)Ordered By: Stephanie Orta on 02-15-2025 Creatinine [Mass/Vol] 0.89 mg/dL 0.70-1.20 [facility] Serum globulin measurementOr dered By: Stephanie Orta on 02-15-2025 Globulin (S) [Mass/Vol] 2.5 g/dL 2.2-4.2 [facility] Serum glucose measurement (m ass/volume)Ordered By: Stephanie Orta on 02-15-2025 Glucose [Mass/Vol] 93 mg/dL 70-99 [facility] Serum or plasma alanine bradford otransferase (ALT) measurementOrdered By: Stephanie Orta on 02-15-2025 ALT [Catalytic activity/Vol] 26 U/L <35 [facility] Serum or plasma albumin blessing urement (mass/volume)Ordered By: Stephanie Orta on 02-15-2025 Albumin [Mass/Vol] 4.1 g/dL 3.4-4.8 [facility] Serum or plasma albumin/glob ulin mass ratioOrdered By: Stephanie Orta on 02-15-2025 Albumin/Globulin [Mass ratio] 1.6 {ratio} 0.9-2.4 [facility] Serum or plasma alkaline mario sphatase measurementOrdered By: Stephanie Orta on 02-15-2025 ALP [Catalytic activity/Vol] 59 U/L 35-104 [facility] Serum or plasma calcium blessing urement (mass/volume)Ordered By: Stephanie Orta on 02-15-2025 Calcium [Mass/Vol] 9.3 mg/dL 7.6-11.0 [facility] Serum or plasma urea nitroge n measurement (mass/volume)Ordered By: Stephanie Orta on 02-15-2025 Urea nitrogen [Mass/Vol] 16 mg/dL 4-19 [facility] Sodium levelOrdered By: Jennifer Orta on 02-15-2025 Sodium [Moles/Vol] 142 mmol/L 133-145 [facility] Total proteinOrdered By: Maria Del Rosario Orta on 02-15-2025 Protein [Mass/Vol] 6.6 g/dL 5.9-8.4 [facility] White blood cell (WBC) count Ordered By: Stephanie Orta on 02-15-2025 WBC (Bld) [#/Vol] 6.2 10*3/uL 4.4-11.0 [facility] Echo Completeon 02-14-2025 Echo Complete [facility] [address] [place] [address] Echo Complete 02/14/25 0956 MR#: [id number] Acct: [id number] Name: GISEL SAWYER Rep #: [id number] : 1955 69 From: Barrett Biswas MD Attending Dr: JIMENEZ Goode Status: REG CLI Ordering Dr: Karolina Blanc Date: 01/31 Location: [facility] Sex: F C Admitted: Reason For Study Reason For Study: MURMUR Procedure This was a 2D Doppler, Color Flow transthoracic echocardiogram. Exam performed in department. Left Ventricle Normal LV size. Left ventricular systolic function is normal. The left ventricular ejection fraction is 70 %. Stage 1 diastolic dysfunction. No regional wall motion abnormalities noted. Right Ventricle Normal RV size. ICD or pacer leads identified within the right ventricle. Normal systolic function. Atria Normal left atrium. Normal right atrium. Mitral Valve Normal mitral valve. Mild (1+) eccentric mitral valve insufficiency. Tricuspid Valve Normal tricuspid valve. Mild (1+) tricuspid valve insufficiency. Aortic Valve Trisinus/trileaflet aortic valve. Mild focal aortic valve calcification. Peak aortic valve gradient 33 mmHg. Mean aortic valve gradient 19 mmHg. Mild aortic stenosis. Pulmonic Valve Normal pulmonic valve. Great Vessels Normal aortic root. The pulmonary artery is normal size. Inferior vena cava collapse with respiration. Pericardium/Pleural No pericardial effusion. MMode/2D Measurements Calculations LVIDd: 4.1 cm IVSd: 0.74 cm LVOT diam: 2.0 cm LVIDs: 3.0 cm LVPWd: 1.1 cm LVOT area: 3.2 cm2 RVDd: 2.8 cm FS: 27.2 % __ Ao root diam: 3.1 cm LAV(MOD-bp): 37.7 ml LVAd ap4: 28.4 cm2 LAV(MOD-bp) Indexed: 22.9 ml/m2 LVLd ap4: 8.5 cm LAV(MOD-sp2): 38.8 ml EDV(MOD-sp4): 79.3 ml LAV(MOD-sp4): 32.1 ml EDV(sp4-el): 80.0 ml LVAs ap4: 13.9 cm2 LVLs ap4: 7.1 cm ESV(MOD-sp4): 24.3 ml ESV(sp4-el): 23.2 ml EF(MOD-sp4): 69.3 % EF(sp4-el): 71.0 % __ SV(MOD-sp4): 55.0 ml SV(sp4-el): 56.8 ml LA A4 area: 14.8 cm2 SI(MOD-sp4): 33.4 ml/m2 __ LA dimension(2D): 3.5 cm RA A4 area: 11.7 cm2 Time Measurements MV dec time: 0.36 sec Doppler Measurements Calculations MV E max isiah: 71.9 cm/sec Lat Peak E' Isiah: 13.6 cm/sec Med Peak E' Isiah: 7.9 cm/sec MV A max isiah: 79.4 cm/sec E/E' lat: 5.3 E/E' med: 9.1 MV E/A: 0.91 __ MV V2 max: 96.0 cm/sec Ao V2 max: 290.7 cm/sec MV max P.7 mmHg MV dec slope: 207.0 cm/sec2 Ao max P.9 mmHg MV V2 mean: 56.9 cm/sec Ao V2 mean: 200.9 cm/sec MV mean P.5 mmHg Ao mean P.9 mmHg MV V2 VTI: 38.6 cm Ao V2 VTI: 73.6 cm AV (velocity ratio): 0.35 MVA(VTI): 2.1 cm2 JAJA(I,D): 1.1 cm2 JAJA(V,D): 1.3 cm2 __ LV V1 max: 119.0 cm/sec SV(LVOT): 81.3 ml PA V2 max: 89.1 cm/sec LV V1 max P.7 mmHg PA V2 mean: 70.1 cm/sec LV V1 mean P.9 mmHg LV V1 mean: 79.1 cm/sec LV V1 VTI: 25.5 cm __ TR max isiah: 248.6 cm/sec TR max P.7 mmHg ECHO/Echo Complete Interpretation Summary Normal LV size. Left ventricular systolic function is normal. The left ventricular ejection fraction is 70 %. Stage 1 diastolic dysfunction. Mild focal aortic valve calcification. Mild aortic stenosis. Mean aortic valve gradient 19 mmHg. __ Ordering Physician: Karolina Blanc Referring Physician: Karolina Blanc Performed By: Angela Kulkarni RCS 02/14/25 1238 Date Barrett Biswas MD CC: Dr. Melba Young MD; JIMENEZ Goode Date Dictated: 02/14/25 0956 Date Transcribed: 02/14/25 1238 Coffee Taster: Signed Normal [facility] Cardiology Visit Reporton Cardiology Visit Report [facility] [address] [place] [address] OFFICE VISIT Date of Service: 01/16/25 MR#: [id number] Acct: [id number] Name: GISEL SAWYER Rep #: [id number] : 1955 Provider: JIMENEZ Muñoz Age/Sex: 69/F Location[place] [facility] Status: Signed HPI HPI History of Present Illness Details: Pleasant 69-year-old lady with a history of hypertension and [...] any symptoms of claudication. Intake Vital Signs 01/12/24 13:15 10/24/24 11:02 01/16/25 10:41 Height 5 ft 7 in 5 ft 7 in 5 ft 7 in Weight: 123 lb 126 lb BMI 19.3 19.7 BP 142/78 H 131/68 H Blood Pressure Location Lt brachial Lt brachial Position Sitting Sitting Respiration 18 16 Pulse 83 54 L Pulse Source Monitor Monitor Temp 97.3 F L Pulse Oximetry (%) 98 Oxygen Delivery Method room air Intake Visit Reasons: 1 Y FU/ Sees Tana @ 10:30 Mallet Cutter Required: No Accompanied by: Self Is patient in pain?: No Allergies No Known Allergies Allergy (Verified 01/16/25 10:49) Medications ???Medication ???Instructions ???Recorded ???Confirmed ???Type folic acid 1 mg tablet 2 mg PO DAILY@0800 04/07/17 History methotrexate sodium 2.5 mg tablet 12.5 mg PO HERNANDEZ 04/07/17 01/16/25 H istory latanoprost 0.005 % eye drops 1 drp ophthalmic (eye) DAILY 08/1501/16/25 History leucovorin calcium 15 mg tablet 15 mg PO ONCE 08/20/20 01/16/25 Hi story fluconazole 4 %-ibuprofen 2 ml topical BID 10/24/24 01/16/25 H istory %-itraconazole 1 %-terbin 4 % topical soln alendronate 70 mg tablet 70 mg PO QWEEK 3 months #12 tabs 0 11/19/24 01/16/25 Rx Have you fallen in the past year?: No PFSH Medical History Abnormal Pap smear of cervix FREDERIC (acute kidney injury) Anxiety Chronic constipation Constipation Factor 5 Leiden mutation, heterozygous Flu vaccine need Glaucoma Health care maintenance Hyperlipidemia Murmur OAB (overactive bladder) Osteoporosis Preoperative evaluation to rule out surgical contraindication Rheumatoid arthritis Aggfv-Fczebqsxz-Mlf te (WPW) syndrome Surgical History History of History of colposcopy History of eye surgery S/P abdominal hysterectomy S/P placement of cardiac pacemaker Family History Father Myocardial infarction, Onset Age: [...] at home: Yes additional social history: - [employer] Welfare 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 ROS Const Const: Negative for fatigue, weakness, headache(s), daytime sleepiness or difficulty sleeping ENT ENT: Negative for headache(s), dizziness or Nosebleed/epistaxis Cardio Chest Pain: No Palpitations: Yes (infrequently) Edema: None Resp Respiratory: Negative for SOB with activity, SOB at rest, SOB orthopnea SOB lying down or Cough GI GI: Negative nausea, vomiting or heartburn Neuro Neuro: Negative for dizziness, lightheadedness, near syncope, headache(s) or weakness Endo Endo: Negative for fatigue [...] Conjunctivae: conjunctivae normal Pupils: PERRL EOM: EOM in (more content not included)... Normal [facility] Pacemaker Checkon 01-16-2025 Pacemaker Check [facility] [address] [place] [address]. [address] [place] [address] Pacemaker Check Date of Service: 01/16/25 1626 MR#: [id number] Acct: [id number] Name: GISEL SAWYER Rep #: [id number] : 1955 From: Olivia Carlos Age/Sex: 69/F [place] [facility] [place]: Signed Billing Codes PM Device Codes: 00533 PM Dev Prog Eval, Dual Assessment and Plan Assessment and Plan (1) Nbfjj-Pesgknork-Pyu te syndrome: Status: Chronic (2) Presence of cardiac pacemaker: Status: Chronic (3) Paroxysmal atrial tachycardia: Status: Acute 01/16/25 1628 Date Olivia Villalpando Signature: Date (if applicable) CC: Normal [facility] Absolute lymphocyte countOrd ered By: Stephanie Orta on 11-23-2024 Lymphocytes Auto (Unsp spec) [#/Vol] 2.21 10*3/uL 0.83-4.51 [facility] Absolute neutrophil countOrd ered By: Stephaniemichelle Orta on 11-23-2024 Neutrophils (Bld) [#/Vol] 2.7 10*3/uL 2.0-7.7 [facility] Anion gap in Serum or Plasma Ordered By: Stephanie Orta on 11-23-2024 Anion gap [Moles/Vol] 11 mmol/L 5- [facility] Automated lymphocyte count a s percentage of total leukocytesOrdered By: Stephanie Orta on 11-23-2024 Lymphocytes/100 WBC Auto (Unsp spec) 37.5 % - [facility] BUN/creatinine ratioOrdered By: Stephaniemichelle Orta on 11-23-2024 Urea nitrogen/Creatinine [Mass ratio] 22.3 mg/mg High 10- [facility] Basophil percentageOrdered B y: Stephanie Orta on 11-23-2024 Basophils/100 WBC (Bld) 0.7 % 0-1 [facility] Bilirubin, totalOrdered By: Stephanie Orta on 11-23-2024 Bilirubin [Mass/Vol] 0.19 mg/dL 0.00-1.30 [facility] CBC W/Diff, Automatedon 11-06 Absolute Lymph 2.21 X10 3/uL Normal 0.83-4.51 [facility] Comment on above: Performed By: #### L 500.4050, L100.0100 #### [facility] Laboratory [address] [place], [address] Absolute Neut 2.7 X10 3/uL Normal 2.0-7.7 [facility] Comment on above: Performed By: #### L 500.4050, L100.0100 #### [facility] [address] [place], [address] Basophils/100 WBC (Bld) 0.7 % Normal 0-1 [facility] Comment on above: Performed By: #### L 500.4050, L100.0100 #### [facility] [address] [place], [address] Eosinophils/100 WBC (Bld) 1.4 % Normal 0-5 [facility] Comment on above: Performed By: #### L 500.4050, L100.0100 #### [facility] [address] [place], [address] Erythrocyte distribution width (RBC) [Ratio] 14.2 % Normal 11.6-14.6 [facility] Comment on above: Performed By: #### L 500.4050, L100.0100 #### [facility] [address] [place], [address] Hematocrit (Bld) [Volume fraction] 41.8 % Normal 37-47 [facility] Comment on above: Performed By: #### L 500.4050, L100.0100 #### [facility] [address] [place], [address] Hemoglobin (Bld) [Mass/Vol] 13.5 g/dL Normal 12.0-15.0 [facility] Comment on above: Performed By: #### L 500.4050, L100.0100 #### [facility] [address] [place], [address] IG% 0.200 Normal 0.0-0.9 [facility] Comment on above: Result Comment: IG% - Immature Granulocytes (promyelocytes, myelocytes and metamyelocytes) > 1% indicates that a LEFT SHIFT is Present. Performed By: #### L 500.4050, L100.0100 #### [facility] [address] [place], [address] Lymphocytes/100 WBC (Bld) 37.5 % Normal 19-41 [facility] Comment on above: Performed By: #### L 500.4050, L100.0100 #### [facility] [address] [place], [address] MCH (RBC) [Entitic mass] 30.1 pg Normal 27.0-32.0 [facility] Comment on above: Performed By: #### L 500.4050, L100.0100 #### [facility] [address] [place], [address] MCHC (RBC) [Mass/Vol] 32.3 g/dL Normal 32-36 [facility] Comment on above: Performed By: #### L 500.4050, L100.0100 #### [facility] [address] [place], [address] MCV (RBC) [Entitic vol] 93.3 fL Normal 81-99 [facility] Comment on above: Performed By: #### L 500.4050, L100.0100 #### [facility] [address] [place], [address] Monocytes/100 WBC (Bld) 14.3 % High 0-10 [facility] Comment on above: Performed By: #### L 500.4050, L100.0100 #### [facility] [address] [place], [address] Neutrophils/100 WBC (Bld) 45.9 % Low 47-70 [facility] Comment on above: Performed By: #### L 500.4050, L100.0100 #### [facility] [address] [place], [address] Nucleated RBC (Bld) [#/Vol] 0 10*3/uL Normal 0-5 [facility] Comment on above: Performed By: #### L 500.4050, L100.0100 #### [facility] [address] [place], [address] Platelet mean volume (Bld) [Entitic vol] 11.0 fL Normal 6.2-12.0 [facility] Comment on above: Performed By: #### L 500.4050, L100.0100 #### [facility] [address] [place], [address] Platelets (Bld) [#/Vol] 168 10*3/uL Normal 150-450 [facility] Comment on above: Performed By: #### L 500.4050, L100.0100 #### [facility] [address] [place], [address] RBC (Bld) [#/Vol] 4.48 10*6/uL Normal 4.2-5.4 [facility] Comment on above: Performed By: #### L 500.4050, L100.0100 #### [facility] [address] [place], [address] RDW SD 48.9 fl High 35.1-43.9 [facility] Comment on above: Performed By: #### L 500.4050, L100.0100 #### [facility] [address] [place], [address] WBC (Bld) [#/Vol] 5.9 10*3/uL Normal 4.4-11.0 [facility] Comment on above: Performed By: #### L 500.4050, L100.0100 #### [facility] [address] [place], [address] Carbon dioxide, total [Moles /volume] in Central venous bloodOrdered By: Stephanie Orta on 11-23-2024 CO2 [Moles/Vol] 25.9 mmol/L 21.0-32.0 [facility] Chloride assayOrdered By: Jimenez Orta on 11-23-2024 Chloride [Moles/Vol] 105 mmol/L 98-108 [facility] Comprehensive Metabolic Prof ilon 11-23-2024 Albumin [Mass/Vol] 4.4 g/dL Normal 3.4-4.8 [facility] Comment on above: Performed By: #### M 100.2200, L400.0001 #### [facility] [address] [place], [address] Albumin/Globulin [Mass ratio] 1.6 {ratio} Normal 0.9-2.4 [facility] Comment on above: Performed By: #### M 100.2200, L400.0001 #### [facility] [address] [place], [address] ALK PHOS 76 U/L Normal 35-104 [facility] Comment on above: Performed By: #### M 100.2200, L400.0001 #### [facility] [address] [place], [address] ALT [Catalytic activity/Vol] 26 U/L Normal <=34 [facility] Comment on above: Performed By: #### M 100.2200, L400.0001 #### [facility] [address] [place], [address] AST [Catalytic activity/Vol] 29 U/L Normal <=31 [facility] Comment on above: Performed By: #### M 100.2200, L400.0001 #### [facility] [address] [place], [address] Bilirubin [Mass/Vol] 0.19 mg/dL Normal 0.00-1.30 [facility] Comment on above: Performed By: #### M 100.2200, L400.0001 #### [facility] [address] [place], [address] BUN/CRE 22.3 RATIO High 10-20 [facility] Comment on above: Performed By: #### M 100.2200, L400.0001 #### [facility] [address] [place], [address] Calcium [Mass/Vol] 10.0 mg/dL Normal 7.6-11.0 [facility] Comment on above: Performed By: #### M 100.2200, L400.0001 #### [facility] [address] [place], [address] Chloride [Moles/Vol] 105 mmol/L Normal 98-108 [facility] Comment on above: Performed By: #### M 100.2200, L400.0001 #### [facility] [address] [place], [address] CO2 [Moles/Vol] 25.9 mmol/L Normal 21.0-32.0 [facility] Comment on above: Performed By: #### M 100.2200, L400.0001 #### [facility] [address] [place], [address] Creatinine [Mass/Vol] 0.73 mg/dL Normal 0.70-1.20 [facility] Comment on above: Performed By: #### M 100.2200, L400.0001 #### [facility] [address] [place], [address] GAP 11 Normal 5-15 [facility] Comment on above: Performed By: #### M 100.2200, L400.0001 #### [facility] [address] [place], [address] GFR/1.73 sq M.predicted among non-blacks MDRD (S/P/Bld) [Vol rate/Area] 88 mL/min/{1.73_m2} Normal >60 [facility] Comment on above: Result Comment: mL/m in/1.73m2 CKD-EPI Creatinine Equation (2020) Performed By: #### M 100.2200, L400.0001 #### [facility] [address] [place], [address] Globulin (S) [Mass/Vol] 2.7 g/dL Normal 2.2-4.2 [facility] Comment on above: Performed By: #### M 100.2200, L400.0001 #### [facility] [address] [place], [address] Glucose [Mass/Vol] 91 mg/dL Normal 70-99 [facility] Comment on above: Performed By: #### M 100.2200, L400.0001 #### [facility] [address] [place], [address] Potassium [Moles/Vol] 4.2 mmol/L Normal 3.3-5.1 [facility] Comment on above: Performed By: #### M 100.2200, L400.0001 #### [facility] [address] [place], [address] Sodium [Moles/Vol] 142 mmol/L Normal 133-145 [facility] Comment on above: Performed By: #### M 100.2200, L400.0001 #### [facility] [address] [place], [address] T PROT 7.1 g/dL Normal 5.9-8.4 [facility] Comment on above: Performed By: #### M 100.2200, L400.0001 #### [facility] [address] [place], [address] Urea nitrogen [Mass/Vol] 16 mg/dL Normal 4-19 [facility] Comment on above: Performed By: #### M 100.2200, L400.0001 #### [facility] [address] [place], [address] Eosinophil percentageOrdered By: Stephanie Orta on 11-23-2024 Eosinophils/100 WBC (Bld) 1.4 % 0-5 [facility] Erythrocyte distribution wid th ratioOrdered By: Stephanie Orta on 11-23-2024 Erythrocyte distribution width (RBC) [Ratio] 14.2 % 11.6-14.6 [facility] Erythrocyte distribution wid th standard deviationOrdered By: Stephanie Orta on 11-23-2024 Erythrocyte distribution width (RBC) [Ratio] 48.9 fl High 35.1-43.9 [facility] Glomerular filtration rate ( GFR) estimation/1.73 sq m using serum, plasma, or whole bOrdered By: Stephanie Orta on 11-23-2024 GFR/1.73 sq M.predicted among non-blacks MDRD (S/P/Bld) [Vol rate/Area] 88 mL/min/{1.73_m2} >60 [facility] Comment on above: mL/min/1.73m2 CKD-EP I Creatinine Equation (2020) Hematocrit Auto (Bld) [Volum e fraction]Ordered By: Stephanie Orta on 11-23-2024 Hematocrit (Bld) [Volume fraction] 41.8 % 37-47 [facility] Hemoglobin measurementOrdere d By: Stephanie Orta on 11-23-2024 Hemoglobin (Bld) [Mass/Vol] 13.5 g/dL 12.0-15.0 [facility] Immature granulocytes/100 WB C Auto (Bld)Ordered By: Stephanie Orta 11-23-2024 Immature granulocytes/100 WBC (Bld) 0.200 % 0.0-0.9 [facility] Comment on above: IG% - Immature Granu locytes (promyelocytes, myelocytes and metamyelocytes) > 1% indicates that a LEFT SHIFT is Present. Laboratory - Chemistry and C hemistry - challengeOrdered By: Stephanie Orta 11-23-2024 AST [Catalytic activity/Vol] 29 U/L <32 [facility] MCV (mean corpuscular volume ) determinationOrdered By: Stephanie Orta 11-23-2024 MCV (RBC) [Entitic vol] 93.3 fL 81-99 [facility] Mean corpuscular hemoglobin (MCH) determinationOrdered By: Stephanie Orta 11-23-2024 MCH (RBC) [Entitic mass] 30.1 pg 27.0-32.0 [facility] Mean corpuscular hemoglobin concentration (MCHC) determinationOrdered By: Stephanie Orta 11-23-2024 MCHC (RBC) [Mass/Vol] 32.3 g/dL 32-36 [facility] Mean platelet volume determi nationOrdered By: Stephanie Orta on 11-23-2024 Platelet mean volume (Bld) [Entitic vol] 11.0 fL 6.2-12.0 [facility] Monocyte percentageOrdered B y: Stephanie Orta on 11-23-2024 Monocytes/100 WBC (Bld) 14.3 % High 0-10 [facility] Neutrophil percentageOrdered By: Stephanie Orta on 11-23-2024 Neutrophils/100 WBC (Bld) 45.9 % Low 47-70 [facility] Nucleated red blood cell per centageOrdered By: Stephanie Orta on 11-23-2024 Nucleated RBC/100 WBC (Bld) [Ratio] 0 % 0-5 [facility] Platelet countOrdered By: Jimenez Orta on 11-23-2024 Platelets (Bld) [#/Vol] 168 10*3/uL 150-450 [facility] Potassium measurement (mass/ volume)Ordered By: Stephanie Orta on 11-23-2024 Potassium (Unsp spec) [Mass/Vol] 4.2 mmol/L 3.3-5.1 [facility] RBC Auto (Bld) [#/Vol]Ordere d By: Stephanie Orta on 11-23-2024 RBC (Bld) [#/Vol] 4.48 10*6/uL 4.2-5.4 [facility] Serum creatinine measurement (mass/volume)Ordered By: Stephanie Orta on 11-23-2024 Creatinine [Mass/Vol] 0.73 mg/dL 0.70-1.20 [facility] Serum globulin measurementOr dered By: Stephanie Orta on 11-23-2024 Globulin (S) [Mass/Vol] 2.7 g/dL 2.2-4.2 [facility] Serum glucose measurement (m ass/volume)Ordered By: Stephanie Orta on 11-23-2024 Glucose [Mass/Vol] 91 mg/dL 70-99 [facility] Serum or plasma alanine bradford otransferase (ALT) measurementOrdered By: Stephanie Orta on 11-23-2024 ALT [Catalytic activity/Vol] 26 U/L <35 [facility] Serum or plasma albumin blessing urement (mass/volume)Ordered By: Stephanie Orta on 11-23-2024 Albumin [Mass/Vol] 4.4 g/dL 3.4-4.8 [facility] Serum or plasma albumin/glob ulin mass ratioOrdered By: Stephanie Orta on 11-23-2024 Albumin/Globulin [Mass ratio] 1.6 {ratio} 0.9-2.4 [facility] Serum or plasma alkaline mario sphatase measurementOrdered By: Stephanie Orta on 11-23-2024 ALP [Catalytic activity/Vol] 76 U/L 35-104 [facility] Serum or plasma calcium blessing urement (mass/volume)Ordered By: Stephanie Orta on 11-23-2024 Calcium [Mass/Vol] 10.0 mg/dL 7.6-11.0 [facility] Serum or plasma urea nitroge n measurement (mass/volume)Ordered By: Stephanie Orta on 11-23-2024 Urea nitrogen [Mass/Vol] 16 mg/dL 4-19 [facility] Sodium levelOrdered By: Jennifer Orta on 11-23-2024 Sodium [Moles/Vol] 142 mmol/L 133-145 [facility] Total proteinOrdered By: Maria Del Rosario Orta on 11-23-2024 Protein [Mass/Vol] 7.1 g/dL 5.9-8.4 [facility] White blood cell (WBC) count Ordered By: Stephanie Orta on 11-23-2024 WBC (Bld) [#/Vol] 5.9 10*3/uL 4.4-11.0 [facility] Internal Medicine Office Vis pravin 10-24-2024 Internal Medicine Office Visit [facility] [address] [place] [address] [id number] OFFICE VISIT Date of Service: 10/24/24 MR#: [id number] Acct: [id number] Name: GISEL SAWYER Rep #: [id number] : 1955 Provider: Dr. Melba dyer MD Age/Sex: 69/F [place] [facility] Status: Signed Intake Vital Signs 04/23/24 11:06 10/24/24 11:02 Height 5 ft 7 in 5 ft 7 in Weight: 123 lb BMI 19.3 BP 142/78 H Blood Pressure Location Lt brachial Position Sitting Respiration 18 Pulse 83 Pulse Source Monitor Temp 97.3 F L Temp Source Temporal Pulse Oximetry (%) 98 Oxygen Delivery Method room air Intake Visit Reasons: 6 M FU Chief Complaint: 6 M FU Is patient in pain?: No Allergies No Known Allergies Allergy (Verified 10/24/24 11:02) Medications ???Medication ???Instructions ???Recorded ???Confirmed ???Type folic acid 1 mg tablet 2 mg PO DAILY@0800 04/07/17 History methotrexate sodium 2.5 mg tablet 12.5 mg PO HERNANDEZ 04/07/17 10/24/24 H istory latanoprost 0.005 % eye drops 1 drp ophthalmic (eye) DAILY 08/1510/24/24 History leucovorin calcium 15 mg tablet 15 mg PO ONCE 08/20/20 10/24/24 Hi story hydroxyzine HCl 25 mg tablet 25 mg PO TID PRN anxiety #90 tabs 03/09/24 10/24/24 Rx alendronate 70 mg tablet 70 mg PO QWEEK 3 months #12 tabs 0 05/22/24 10/24/24 Rx fluconazole 4 %-ibuprofen 2 ml topical BID 10/24/24 10/24/24 H istory %-itraconazole 1 %-terbin 4 % topical soln Have you fallen in the past year?: No PFSH Medical History Flu vaccine need OAB (overactive bladder) Constipation Murmur Hyperlipidemia FREDERIC (acute kidney injury) Health care maintenance Anxiety Chronic constipation Preoperative evaluation to rule out surgical contraindication Yljir-Uhpkyfucp-Fck te (WPW) syndrome Osteoporosis Glaucoma Factor 5 [...] at home: Yes additional social history: - [employer] 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 The patient reports experiencing increased frequency of urination, particularly at night, for the past six months. She denies any burning sensation or pain during urination. The patient notes that she does not feel she completely empties her bladder, leading to frequent trips to the bathroom. The patient is concerned about her posture, noticing a forward lean of her head. She has been attempting exercises to improve her posture but remains worried about its progression. The patient has a history of osteoporosis, with recent bone density tests showing improvement. She has been on Fosamax for several years and continues to take calcium and vitamin D supplements. The patient reports anxiety, particularly following the of her in June. She occasionally uses anxiety medication and has considered therapy. The patient has a known heart murmur, with a previous echocardiogram showing no significant issues. Attestation: Documentation on this patient encounter was supported using ambient scribe technology/ voice AI technology. The patient consented to recording for the purpose of documenting the encounter. Provider reviewed content of the generated note prior to signature. ROS Const Constitutional: No body ache, chills, excessive sweating, fatigue, fever(s), frequent falls, headache(s), snoring, weight change, sleep problems, abnormal sleep pattern or change in appetite Eyes Eyes: No blurry vision, change in vision, eye pain or Light sensitivity ENT ENT: No abnormal hearing, ear or mastoid pain, tinnitus, nasal congestion, headache(s), neck pain or sore throat Resp Respiratory: No cough, shortness (more content not included)... Normal [facility] Bone density reportOrdered B y: Shahriar Keane on 10-17-2024 Study report Skeletal system DXA [facility] Services [address] [place] [address] Dexa Bone Density Study MR#: [id number] Acct: [id number] Name: GISEL SAWYER Rep #: [id number] : 1955 F 69 From: Kelechi Keane MD PCP: Dr. Melba Young MD Status: R EG CLI Study:Dexa Bone Density Study Date of Exam: 10/17/24 Exam# [id number] Ordering Dr: Radha Young MD PROCEDURE: DEXA BONE DENSITY STUDY 10/17/2024 REASON FOR EXAM: OSTEOPOROSIS F, age 69 y/o . Postmenopausal. TECHNIQUE: DXA scan of sites with data reported below. [facility] Adult Positions COMPARISON: Prior study dated August 03, 2022. FINDINGS: BMD and T-SCORES Lumbar spine: 0.797 g/cm2, T-score -2.3 Levels: L1 through L4 Change from prior: Improvement by 1.7%. Left femoral neck: 0.604 g/cm2, T-score -2.2 Femoral neck comparison data not recommended for monitoring change. Left total hip: 0.719 g/cm2, T-score -1.8 Change from prior: Loss of 1.4%. Right femoral neck: 0.614 g/cm2, T-score -2.1 Femoral neck comparison data not recommended for monitoring change. Right total hip: 0.749 g/cm2, T-score -1.6 Change from prior: Loss of 2.3%. The World Health Organization has defined the following categories based on bonedensity: Normal bone density: T-score equal to or greater than -1.0 Osteopenia: T-score between -1.0 and -2.5 Osteoporosis: T-score equal to or less than -2.5 The patient does meet the pharmacological treatment recommendations for prevention of osteoporosis. BD/Dexa Bone Density Study IMPRESSION: OSTEOPENIA. Recommend follow-up as clinically warranted. Reading Location: [place] [address] CC: Dr. Melba Young MD ~ Coffee Taster: Signed [facility] Dexa Bone Density Studyon Dexa Bone Density Study [facility] [address] [place] [address] Dexa Bone Density Study MR#: [id number] Acct: [id number] Name: GISEL SAWYER Rep #: [id number] : 1955 F 69 From: Shahriar daniels MD PCP: Dr. Melba Young MD Status: REG CLI Study: Dexa Bone Density Study Date of Exam: 10/17/24 Exam# [id number] Ordering Dr: Melba Young MD PROCEDURE: DEXA BONE DENSITY STUDY 10/17/2024 REASON FOR EXAM: OSTEOPOROSIS F, age 69 y/o . Postmenopausal. TECHNIQUE: DXA scan of sites with data reported below. REFERENCE LINKS: [facility] Adult Positions COMPARISON: Prior study dated August 03, 2022. FINDINGS: BMD and T-SCORES Lumbar spine: 0.797 g/cm2, T-score -2.3 Levels: L1 through L4 Change from prior: Improvement by 1.7%. Left femoral neck: 0.604 g/cm2, T-score -2.2 Femoral neck comparison data not recommended for monitoring change. Left total hip: 0.719 g/cm2, T-score -1.8 Change from prior: Loss of 1.4%. Right femoral neck: 0.614 g/cm2, T-score -2.1 Femoral neck comparison data not recommended for monitoring change. Right total hip: 0.749 g/cm2, T-score -1.6 Change from prior: Loss of 2.3%. The World Health Organization has defined the following categories based on bone density: Normal bone density: T-score equal to or greater than -1.0 Osteopenia: T-score between -1.0 and -2.5 Osteoporosis: T-score equal to or less than -2.5 The patient does meet the pharmacological treatment recommendations for prevention of osteoporosis. BD/Dexa Bone Density Study IMPRESSION: OSTEOPENIA. Recommend follow-up as clinically warranted. Reading Location: [place] [address] CC: Dr. Melba Young MD Coffee Taster: Signed Normal [facility] Anion gap in Serum or Plasma Ordered By: Stephanie Orta on 08-27-2024 Anion gap [Moles/Vol] 10 mmol/L 5-15 [facility] BUN/creatinine ratioOrdered By: Stephanie Orta on 08-27-2024 Urea nitrogen/Creatinine [Mass ratio] 26.4 mg/mg High 10-20 [facility] Bilirubin, totalOrdered By: Stephanie Orta on 08-27-2024 Bilirubin [Mass/Vol] 0.27 mg/dL 0.00-1.30 [facility] Carbon dioxide, total [Moles /volume] in Central venous bloodOrdered By: Stephanie Orta on 08-27-2024 CO2 [Moles/Vol] 26.5 mmol/L 21.0-32.0 [facility] Chloride assayOrdered By: Jimenez Orta on 08-27-2024 Chloride [Moles/Vol] 108 mmol/L 98-108 [facility] Comprehensive Metabolic Prof ilon 08-27-2024 Albumin [Mass/Vol] 4.2 g/dL Normal 3.4-4.8 [facility] Comment on above: Performed By: #### L 500.4050 #### [facility] Laboratory [address] [place], [address] Albumin/Globulin [Mass ratio] 1.6 {ratio} Normal 0.9-2.4 [facility] Comment on above: Performed By: #### L 500.4050 #### [facility] Laboratory [address] [place], [address] ALK PHOS 65 U/L Normal 35-104 [facility] Comment on above: Performed By: #### L 500.4050 #### [facility] Laboratory [address] [place], [address] ALT [Catalytic activity/Vol] 23 U/L Normal <=34 [facility] Comment on above: Performed By: #### L [id number] #### [facility] Laboratory [address] [place], [address] AST [Catalytic activity/Vol] 24 U/L Normal <=31 [facility] Comment on above: Performed By: #### L [id number] #### [facility] Laboratory [address] [place], [address] Bilirubin [Mass/Vol] 0.27 mg/dL Normal 0.00-1.30 [facility] Comment on above: Performed By: #### L [id number] #### [facility] Laboratory [address] [place], [address] BUN/CRE 26.4 RATIO High 10-20 [facility] Comment on above: Performed By: #### L [id number] #### [facility] Laboratory [address] [place], [address] Calcium [Mass/Vol] 9.6 mg/dL Normal 7.6-11.0 [facility] Comment on above: Performed By: #### L 500.4050 #### [facility] Laboratory [address] [place], [address] Chloride [Moles/Vol] 108 mmol/L Normal 98-108 [facility] Comment on above: Performed By: #### L [id number] #### [facility] Laboratory [address] [place], [address] CO2 [Moles/Vol] 26.5 mmol/L Normal 21.0-32.0 [facility] Comment on above: Performed By: #### L [id number] #### [facility] Laboratory [address] [place], [address] Creatinine [Mass/Vol] 0.81 mg/dL Normal 0.70-1.20 [facility] Comment on above: Performed By: #### L [id number] #### [facility] Laboratory [address] [place], [address] GAP 10 Normal 5-15 [facility] Comment on above: Performed By: #### L 500.4050 #### [facility] Laboratory [address] [place], [address] GFR/1.73 sq M.predicted among non-blacks MDRD (S/P/Bld) [Vol rate/Area] 79 mL/min/{1.73_m2} Normal >60 [facility] Comment on above: Result Comment: mL/m in/1.73m2 CKD-EPI Creatinine Equation (2020) Performed By: #### L 500.4050 #### [facility] Laboratory [address] [place], [address] Globulin (S) [Mass/Vol] 2.7 g/dL Normal 2.2-4.2 [facility] Comment on above: Performed By: #### L 500.4050 #### [facility] Laboratory [address] [place], [address] Glucose [Mass/Vol] 103 mg/dL High 70-99 [facility] Comment on above: Performed By: #### L 500.4050 #### [facility] Laboratory [address] [place], [address] Potassium [Moles/Vol] 3.9 mmol/L Normal 3.3-5.1 [facility] Comment on above: Performed By: #### L 500.4050 #### [facility] Laboratory [address] [place], [address] Sodium [Moles/Vol] 144 mmol/L Normal 133-145 [facility] Comment on above: Performed By: #### L 500.4050 #### [facility] Laboratory [address] [place], [place], [id number] T PROT 6.8 g/dL Normal 5.9-8.4 [facility] Comment on above: Performed By: #### L 500.4050 #### [facility] Laboratory [address] [place], [place], [id number] Urea nitrogen [Mass/Vol] 21 mg/dL High 4-19 [facility] Comment on above: Performed By: #### L 500.4050 #### [facility] Laboratory [address] [place], [place], [id number] Glomerular filtration rate ( GFR) estimation/1.73 sq m using serum, plasma, or whole bOrdered By: Stephanie Orta on 08-27-2024 GFR/1.73 sq M.predicted among non-blacks MDRD (S/P/Bld) [Vol rate/Area] 79 mL/min/{1.73_m2} >60 [facility] Comment on above: mL/min/1.73m2 CKD-EP I Creatinine Equation (2020) Laboratory - Chemistry and C hemistry - challengeOrdered By: Stephanie Orta on 08-27-2024 AST [Catalytic activity/Vol] 24 U/L <32 [facility] Potassium measurement (mass/ volume)Ordered By: Stephanie Orta on 08-27-2024 Potassium (Unsp spec) [Mass/Vol] 3.9 mmol/L 3.3-5.1 [facility] Serum creatinine measurement (mass/volume)Ordered By: Stephanie Orta on 08-27-2024 Creatinine [Mass/Vol] 0.81 mg/dL 0.70-1.20 [facility] Serum globulin measurementOr dered By: Stephanie Orta on 08-27-2024 Globulin (S) [Mass/Vol] 2.7 g/dL 2.2-4.2 [facility] Serum glucose measurement (m ass/volume)Ordered By: Stephanie Orta on 08-27-2024 Glucose [Mass/Vol] 103 mg/dL High 70-99 [facility] Serum or plasma alanine bradford otransferase (ALT) measurementOrdered By: Stephanie Orta on 08-27-2024 ALT [Catalytic activity/Vol] 23 U/L <35 [facility] Serum or plasma albumin blessing urement (mass/volume)Ordered By: Stephanie Orta on 08-27-2024 Albumin [Mass/Vol] 4.2 g/dL 3.4-4.8 [facility] Serum or plasma albumin/glob ulin mass ratioOrdered By: Stephanie Orta on 08-27-2024 Albumin/Globulin [Mass ratio] 1.6 {ratio} 0.9-2.4 [facility] Serum or plasma alkaline mario sphatase measurementOrdered By: Stephanie Orta on 08-27-2024 ALP [Catalytic activity/Vol] 65 U/L 35-104 [facility] Serum or plasma calcium blessing urement (mass/volume)Ordered By: Stephanie Orta on 08-27-2024 Calcium [Mass/Vol] 9.6 mg/dL 7.6-11.0 [facility] Serum or plasma urea nitroge n measurement (mass/volume)Ordered By: Stephanie Orta on 08-27-2024 Urea nitrogen [Mass/Vol] 21 mg/dL High 4-19 [facility] Sodium levelOrdered By: Jennifer Orta on 08-27-2024 Sodium [Moles/Vol] 144 mmol/L 133-145 [facility] Total proteinOrdered By: Maria Del Rosario Orta on 08-27-2024 Protein [Mass/Vol] 6.8 g/dL 5.9-8.4 [facility] Liveron 08-22-2024 Liver [facility] Services [address] [place] [address] Liver MR#: [id number] Acct: [id number] Name: GISEL SAWYER Rep #: [id number] : 1955 F 69 From: Cheikh Mahajan MD PCP: Dr. Melba Young MD Status: REG CLI Study: Liver Date of Exam: 08/22/24 Exam# [id number] Ordering Dr: Stephanie Orta MD PROCEDURE: LIVER [...] 2. Additional description as above. Reading Location: [facility] CC: Dr. Melba Young MD; Dr. Stephanie Orta MD Coffee Taster: Signed Normal [facility] Absolute lymphocyte countOrd ered By: Stephanie Orta on 07-31-2024 Lymphocytes Auto (Unsp spec) [#/Vol] 2.31 10*3/uL 0.83-4.51 [facility] Absolute neutrophil countOrd ered By: Stephanie Orta on 07-31-2024 Neutrophils (Bld) [#/Vol] 3.7 10*3/uL 2.0-7.7 [facility] Anion gap in Serum or Plasma Ordered By: Stephanie Orta on 07-31-2024 Anion gap [Moles/Vol] 8 mmol/L 5-15 [facility] Automated lymphocyte count a s percentage of total leukocytesOrdered By: Stephanie Orta on 07-31-2024 Lymphocytes/100 WBC Auto (Unsp spec) 33.2 % 19-41 [facility] BUN/creatinine ratioOrdered By: Stephanie Orta on 07-31-2024 Urea nitrogen/Creatinine [Mass ratio] 30.9 mg/mg High 10-20 [facility] Basophil percentageOrdered B y: Stephanie Orta on 07-31-2024 Basophils/100 WBC (Bld) 0.7 % 0-1 [facility] Bilirubin, totalOrdered By: Stephanie Orta on 07-31-2024 Bilirubin [Mass/Vol] 0.31 mg/dL 0.00-1.30 [facility] CBC W/Diff, Automatedon 03-2 Absolute Lymph 2.31 X10 3/uL Normal 0.83-4.51 [facility] Comment on above: Performed By: #### L 500.4050, L100.0100 #### [facility] Laboratory [address] [place], [address] Absolute Neut 3.7 X10 3/uL Normal 2.0-7.7 [facility] Comment on above: Performed By: #### L 500.4050, L100.0100 #### [facility] Laboratory [address] [place], [address] Basophils/100 WBC (Bld) 0.7 % Normal 0-1 [facility] Comment on above: Performed By: #### L 500.4050, L100.0100 #### [facility] Laboratory [address] [place], [address] Eosinophils/100 WBC (Bld) 2.2 % Normal 0-5 [facility] Comment on above: Performed By: #### L 500.4050, L100.0100 #### [facility] Laboratory [address] [place], [address] Erythrocyte distribution width (RBC) [Ratio] 14.4 % Normal 11.6-14.6 [facility] Comment on above: Performed By: #### L 500.4050, L100.0100 #### [facility] Laboratory [address] [place], [address] Hematocrit (Bld) [Volume fraction] 40.9 % Normal 37-47 [facility] Comment on above: Performed By: #### L 500.4050, L100.0100 #### [facility] Laboratory [address] [place], [address] Hemoglobin (Bld) [Mass/Vol] 13.4 g/dL Normal 12.0-15.0 [facility] Comment on above: Performed By: #### L 500.4050, L100.0100 #### [facility] Laboratory [address] [place], [address] IG% 0.100 Normal 0.0-0.9 [facility] Comment on above: Result Comment: IG% - Immature Granulocytes (promyelocytes, myelocytes and metamyelocytes) > 1% indicates that a LEFT SHIFT is Present. Performed By: #### L 500.4050, L100.0100 #### [facility] Laboratory [address] [place], [address] Lymphocytes/100 WBC (Bld) 33.2 % Normal 19-41 [facility] Comment on above: Performed By: #### L 500.4050, L100.0100 #### [facility] Laboratory [address] [place], [address] MCH (RBC) [Entitic mass] 31.0 pg Normal 27.0-32.0 [facility] Comment on above: Performed By: #### L [id number], L100.0100 #### [facility] Laboratory [address] [place], [address] MCHC (RBC) [Mass/Vol] 32.8 g/dL Normal 32-36 [facility] Comment on above: Performed By: #### L 500.4050, L100.0100 #### [facility] Laboratory [address] [place], [address] MCV (RBC) [Entitic vol] 94.7 fL Normal 81-99 [facility] Comment on above: Performed By: #### L 500.4050, L100.0100 #### [facility] Laboratory [address] [place], [address] Monocytes/100 WBC (Bld) 10.1 % High 0-10 [facility] Comment on above: Performed By: #### L 500.4050, L100.0100 #### [facility] Laboratory [address] [place], [address] Neutrophils/100 WBC (Bld) 53.7 % Normal 47-70 [facility] Comment on above: Performed By: #### L 500.4050, L100.0100 #### [facility] Laboratory [address] [place], [address] Nucleated RBC (Bld) [#/Vol] 0 10*3/uL Normal 0-5 [facility] Comment on above: Performed By: #### L 500.4050, L100.0100 #### [facility] Laboratory [address] [place], [address] Platelet mean volume (Bld) [Entitic vol] 11.2 fL Normal 6.2-12.0 [facility] Comment on above: Performed By: #### L 500.4050, L100.0100 #### [facility] Laboratory [address] [place], [address] Platelets (Bld) [#/Vol] 188 10*3/uL Normal 150-450 [facility] Comment on above: Performed By: #### L 500.4050, L100.0100 #### [facility] Laboratory [address] [place], [address] RBC (Bld) [#/Vol] 4.32 10*6/uL Normal 4.2-5.4 [facility] Comment on above: Performed By: #### L 500.4050, L100.0100 #### [facility] Laboratory [address] [place], [address] RDW SD 50.4 fl High 35.1-43.9 [facility] Comment on above: Performed By: #### L 500.4050, L100.0100 #### [facility] Laboratory [address] [place], [address] WBC (Bld) [#/Vol] 7.0 10*3/uL Normal 4.4-11.0 [facility] Comment on above: Performed By: #### L 500.4050, L100.0100 #### [facility] Laboratory [address] [place], [address] Carbon dioxide, total [Moles /volume] in Central venous bloodOrdered By: Stephanie Orta on 07-31-2024 CO2 [Moles/Vol] 26.2 mmol/L 21.0-32.0 [facility] Chloride assayOrdered By: Jimenez Orta on 07-31-2024 Chloride [Moles/Vol] 107 mmol/L 98-108 [facility] Comprehensive Metabolic Prof ilon 07-31-2024 Albumin [Mass/Vol] 4.2 g/dL Normal 3.4-4.8 [facility] Comment on above: Performed By: #### L 500.4050, L100.0100 #### [facility] Laboratory [address] [place], [address] Albumin/Globulin [Mass ratio] 1.5 {ratio} Normal 0.9-2.4 [facility] Comment on above: Performed By: #### L 500.4050, L100.0100 #### [facility] Laboratory [address] [place], [address] ALK PHOS 70 U/L Normal 35-104 [facility] Comment on above: Performed By: #### L 500.4050, L100.0100 #### [facility] Laboratory [address] [place], [address] ALT [Catalytic activity/Vol] 46 U/L High <=34 [facility] Comment on above: Performed By: #### L 500.4050, L100.0100 #### [facility] Laboratory [address] [place], [address] AST [Catalytic activity/Vol] 30 U/L Normal <=31 [facility] Comment on above: Performed By: #### L 500.4050, L100.0100 #### [facility] Laboratory [address] [place], [address] Bilirubin [Mass/Vol] 0.31 mg/dL Normal 0.00-1.30 [facility] Comment on above: Performed By: #### L 500.4050, L100.0100 #### [facility] Laboratory [address] [place], [address] BUN/CRE 30.9 RATIO High 10-20 [facility] Comment on above: Performed By: #### L 500.4050, L100.0100 #### [facility] Laboratory [address] [place], [address] Calcium [Mass/Vol] 9.9 mg/dL Normal 7.6-11.0 [facility] Comment on above: Performed By: #### L 500.4050, L100.0100 #### [facility] Laboratory [address] [place], [address] Chloride [Moles/Vol] 107 mmol/L Normal 98-108 [facility] Comment on above: Performed By: #### L 500.4050, L100.0100 #### [facility] Laboratory [address] [place], [address] CO2 [Moles/Vol] 26.2 mmol/L Normal 21.0-32.0 [facility] Comment on above: Performed By: #### L 500.4050, L100.0100 #### [facility] Laboratory [address] [place], [address] Creatinine [Mass/Vol] 0.74 mg/dL Normal 0.70-1.20 [facility] Comment on above: Performed By: #### L 500.4050, L100.0100 #### [facility] Laboratory [address] [place], [address] GAP 8 Normal 5-15 [facility] Comment on above: Performed By: #### L 500.4050, L100.0100 #### [facility] Laboratory [address] [place], [address] GFR/1.73 sq M.predicted among non-blacks MDRD (S/P/Bld) [Vol rate/Area] 88 mL/min/{1.73_m2} Normal >60 [facility] Comment on above: Result Comment: mL/m in/1.73m2 CKD-EPI Creatinine Equation (2020) Performed By: #### L 500.4050, L100.0100 #### [facility] Laboratory [address] [place], [address] Globulin (S) [Mass/Vol] 2.8 g/dL Normal 2.2-4.2 [facility] Comment on above: Performed By: #### L 500.4050, L100.0100 #### [facility] Laboratory [address] [place], [address] Glucose [Mass/Vol] 89 mg/dL Normal 70-99 [facility] Comment on above: Performed By: #### L 500.4050, L100.0100 #### [facility] Laboratory [address] [place], [address] Potassium [Moles/Vol] 4.0 mmol/L Normal 3.3-5.1 [facility] Comment on above: Performed By: #### L 500.4050, L100.0100 #### [facility] Laboratory [address] [place], [address] Sodium [Moles/Vol] 141 mmol/L Normal 133-145 [facility] Comment on above: Performed By: #### L 500.4050, L100.0100 #### [facility] Laboratory [address] [place], [address] T PROT 7.0 g/dL Normal 5.9-8.4 [facility] Comment on above: Performed By: #### L 500.4050, L100.0100 #### [facility] Laboratory [address] [place], [address] Urea nitrogen [Mass/Vol] 23 mg/dL High 4-19 [facility] Comment on above: Performed By: #### L 500.4050, L100.0100 #### [facility] Laboratory [address] [place], [address] Eosinophil percentageOrdered By: Stephanie Orta on 07-31-2024 Eosinophils/100 WBC (Bld) 2.2 % 0-5 [facility] Erythrocyte distribution wid th ratioOrdered By: Stephanie Orta on 07-31-2024 Erythrocyte distribution width (RBC) [Ratio] 14.4 % 11.6-14.6 [facility] Erythrocyte distribution wid th standard deviationOrdered By: Stephaniemichelle Orta on 07-31-2024 Erythrocyte distribution width (RBC) [Entitic vol] 50.4 fL High 35.1-43.9 [facility] Erythrocyte distribution width (RBC) [Ratio] 50.4 fl High 35.1-43.9 [facility] GFR/1.73 sq M.predicted guy g non-blacks MDRD (S/P/Bld) [Vol rate/Area]Ordered By: Stephanie Orta on 07-31-2024 Estimated GFR (MDRD) Non-Af Amer 88 >60 [facility] Comment on above: mL/min/1.73m2 CKD-EP I Creatinine Equation (2020) Glomerular filtration rate ( GFR) estimation/1.73 sq m using serum, plasma, or whole bOrdered By: Stephanie Orta on 07-31-2024 GFR/1.73 sq M.predicted among non-blacks MDRD (S/P/Bld) [Vol rate/Area] 88 mL/min/{1.73_m2} >60 [facility] Comment on above: mL/min/1.73m2 CKD-EP I Creatinine Equation (2020) Hematocrit Auto (Bld) [Volum e fraction]Ordered By: Stephanie Orta on 07-31-2024 Hematocrit (Bld) [Volume fraction] 40.9 % 37-47 [facility] Hemoglobin measurementOrdere d By: Stephanie Orta on 07-31-2024 Hemoglobin (Bld) [Mass/Vol] 13.4 g/dL 12.0-15.0 [facility] Immature granulocytes/100 WB C Auto (Bld)Ordered By: Stephanie Orta on 07-31-2024 Immature granulocytes/100 WBC (Bld) 0.100 % 0.0-0.9 [facility] Comment on above: IG% - Immature Granu locytes (promyelocytes, myelocytes and metamyelocytes) > 1% indicates that a LEFT SHIFT is Present. Laboratory - Chemistry and C hemistry - challengeOrdered By: Stpehanie Orta on 07-31-2024 AST [Catalytic activity/Vol] 30 U/L <32 [facility] Lymphocytes Auto (Unsp spec) [#/Vol]Ordered By: Stephanie Orta on 07-31-2024 Lymphocytes (Bld) [#/Vol] 2.31 10*3/uL 0.83-4.51 [facility] Lymphocytes/100 WBC Auto (Un sp spec)Ordered By: Stephanie Orta on 07-31-2024 Lymphocytes/100 WBC (Bld) 33.2 % 19-41 [facility] MCV (mean corpuscular volume ) determinationOrdered By: Stephanie Orta on 07-31-2024 MCV (RBC) [Entitic vol] 94.7 fL 81-99 [facility] Mean corpuscular hemoglobin (MCH) determinationOrdered By: Stephanie Orta on 07-31-2024 MCH (RBC) [Entitic mass] 31.0 pg 27.0-32.0 [facility] Mean corpuscular hemoglobin concentration (MCHC) determinationOrdered By: Stephanie Orta on 07-31-2024 MCHC (RBC) [Mass/Vol] 32.8 g/dL 32-36 [facility] Mean platelet volume determi nationOrdered By: Stephanie Orta on 07-31-2024 Platelet mean volume (Bld) [Entitic vol] 11.2 fL 6.2-12.0 [facility] Monocyte percentageOrdered B y: Stephanie Orta on 07-31-2024 Monocytes/100 WBC (Bld) 10.1 % High 0-10 [facility] Neutrophil percentageOrdered By: Stephanie Orta on 07-31-2024 Neutrophils/100 WBC (Bld) 53.7 % 47-70 [facility] Nucleated red blood cell per centageOrdered By: Stephanie Orta on 07-31-2024 Nucleated RBC/100 WBC (Bld) [Ratio] 0 % 0-5 [facility] Platelet countOrdered By: Jimenez Orta on 07-31-2024 Platelets (Bld) [#/Vol] 188 10*3/uL 150-450 [facility] Potassium (Unsp spec) [Mass/ Vol]Ordered By: Stephanie Orta on 07-31-2024 Potassium [Moles/Vol] 4.0 mmol/L 3.3-5.1 [facility] Potassium measurement (mass/ volume)Ordered By: Stephanie Orta on 07-31-2024 Potassium (Unsp spec) [Mass/Vol] 4.0 mmol/L 3.3-5.1 [facility] RBC Auto (Bld) [#/Vol]Ordere d By: Stephanie Orta on 07-31-2024 RBC (Bld) [#/Vol] 4.32 10*6/uL 4.2-5.4 [facility] Serum creatinine measurement (mass/volume)Ordered By: Stephanie Orta on 07-31-2024 Creatinine [Mass/Vol] 0.74 mg/dL 0.70-1.20 [facility] Serum globulin measurementOr dered By: Stephanie Orta on 07-31-2024 Globulin (S) [Mass/Vol] 2.8 g/dL 2.2-4.2 [facility] Serum glucose measurement (m ass/volume)Ordered By: Stephanie Orta on 07-31-2024 Glucose [Mass/Vol] 89 mg/dL 70-99 [facility] Serum or plasma alanine bradford otransferase (ALT) measurementOrdered By: Stephanie Orta on 07-31-2024 ALT [Catalytic activity/Vol] 46 U/L High <35 [facility] Serum or plasma albumin blessing urement (mass/volume)Ordered By: Stephanie Orta on 07-31-2024 Albumin [Mass/Vol] 4.2 g/dL 3.4-4.8 [facility] Serum or plasma albumin/glob ulin mass ratioOrdered By: Stephanie Orta on 07-31-2024 Albumin/Globulin [Mass ratio] 1.5 {ratio} 0.9-2.4 [facility] Serum or plasma alkaline mario sphatase measurementOrdered By: Stephanie Orta on 07-31-2024 ALP [Catalytic activity/Vol] 70 U/L 35-104 [facility] Serum or plasma calcium blessing urement (mass/volume)Ordered By: Stephanie Orta on 07-31-2024 Calcium [Mass/Vol] 9.9 mg/dL 7.6-11.0 [facility] Serum or plasma urea nitroge n measurement (mass/volume)Ordered By: Stephanie Orta on 07-31-2024 Urea nitrogen [Mass/Vol] 23 mg/dL High 4-19 [facility] Sodium levelOrdered By: Jennifer Orta on 07-31-2024 Sodium [Moles/Vol] 141 mmol/L 133-145 [facility] Total proteinOrdered By: Maria Del Rosario Orta on 07-31-2024 Protein [Mass/Vol] 7.0 g/dL 5.9-8.4 [facility] White blood cell (WBC) count Ordered By: Stephanie Orta on 07-31-2024 WBC (Bld) [#/Vol] 7.0 10*3/uL 4.4-11.0 [facility] Bacteria Ur Culton Bacteria identified Cx Nom [...] , Intermediate >32 , Resistant >64 Abnormal [facility] Comment on above: Performed By: #### 6 30-4 #### [facility] CLIA [id number] [address] [place] [address] [place] CNOVon 06-27-2024 CNOV Office Visit (UCWSTR) ---- GISEL SAWYER ([id number]) 1955 F Date Time Provider Department 06/27/24 4:45 PM BHUPENDRA FIGUEROA [facility] During your visit today, we recorded the following information about you: Temperature Pulse Respiration Blood pressure 97.6 degrees 70/minute 18/minute 138/82 Weight 55.5 kg Bhupendra Figueroa PA 06/27/2024 4:40 PM Signed This note was created using [employer]. Subjective Gisel Sawyer is a 69 year old female. HPI 69-year-old female presents for UTI symptoms. Patient has had symptoms on and off for about a week. She has urgency, frequency, bladder pressure. She denies any blood in the urine, back pain, abdominal pain, fevers or vomiting. She has had a UTI in the past and this feels similar. She did take care, [id number] a few days ago which did help [...] 2. B (more content not included)... Normal [facility] UA DIP, URINE (POC)on 2024 BILIRUBIN UA (POCT) Negative Negative [facility] CLARITY UA (POCT) Cloudy [facility] COLOR UA (POCT) Yellow [facility] GLUCOSE UA (POCT) Negative Negative mg/dL [facility] Hemoglobin Ql (U) Trace-intact Abnormal Negative [facility] Interpretation and review of laboratory results Abnormal [facility] KETONE UA (POCT) Trace Negative mg/dL [facility] LEUKOCYTES UA (POCT) Small Abnormal Negative [facility] NITRITE UA (POCT) Positive Abnormal Negative [facility] PH UA (POCT) 5.5 4.5 - 8.0 [facility] Protein Ql (U) Negative Negative mg/dL [facility] SPECIFIC GRAVITY UA (POCT) >=1.030 1.005 - 1.030 [facility] UROBILINOGEN UA (POCT) 0.2 Nicole l E.U./dL [facility] Location:[facility], [address] [place] [address], [place], [address] [facility] POINT OF CARE [facility] Absolute neutrophil countOrd ered By: Stephanie Orta on 05-07-2024 Neutrophils (Bld) [#/Vol] 4.2 10*3/uL 2.0-7.7 [facility] Albumin to globulin ratioOrd ered By: Stephanie Orta on 05-07-2024 Albumin/Globulin [Mass ratio] 1.1 {ratio} 0.9-2.4 [facility] Basophil percentageOrdered B y: Stephanie Orta on 05-07-2024 Basophils/100 WBC (Bld) 0.7 % 0-1 [facility] Bilirubin, totalOrdered By: Stephanie Quirogalawson on 05-07-2024 Bilirubin [Mass/Vol] 0.30 mg/dL 0.20-1.00 [facility] Comment on above: For patients on eltr ombopag therapy, use of Dimension [place] TBIL is not recommended. Blood urea nitrogen (BUN)/cr eatinine ratioOrdered By: Stephanie You on 05-07-2024 Urea nitrogen/Creatinine [Mass ratio] 21.8 mg/mg High 10- [facility] CBC W/Diff, Automatedon 04-10 Absolute Lymph 2.05 X10 3/uL Normal 0.83-4.51 [facility] Comment on above: Performed By: #### L 500.4050, L100.0100 #### [facility] [address] [place], [address] Absolute Neut 4.2 X10 3/uL Normal 2.0-7.7 [facility] Comment on above: Performed By: #### L 500.4050, L100.0100 #### [facility] [address] [place], [address] Basophils/100 WBC (Bld) 0.7 % Normal 0-1 [facility] Comment on above: Performed By: #### L 500.4050, L100.0100 #### [facility] [address] [place], [address] Eosinophils/100 WBC (Bld) 1.4 % Normal 0-5 [facility] Comment on above: Performed By: #### L 500.4050, L100.0100 #### [facility] [address] [place], [address] Erythrocyte distribution width (RBC) [Ratio] 13.6 % Normal 11.6-14.6 [facility] Comment on above: Performed By: #### L 500.4050, L100.0100 #### [facility] [address] [place], [address] Hematocrit (Bld) [Volume fraction] 38.5 % Normal 37-47 [facility] Comment on above: Performed By: #### L 500.4050, L100.0100 #### [facility] [address] [place], [address] Hemoglobin (Bld) [Mass/Vol] 12.6 g/dL Normal 12.0-15.0 [facility] Comment on above: Performed By: #### L 500.4050, L100.0100 #### [facility] [address] [place], [address] IG% 0.300 Normal 0.0-0.9 [facility] Comment on above: Result Comment: IG% - Immature Granulocytes (promyelocytes, myelocytes and metamyelocytes) > 1% indicates that a LEFT SHIFT is Present. Performed By: #### L 500.4050, L100.0100 #### [facility] [address] [place], [address] Lymphocytes/100 WBC (Bld) 29.5 % Normal 19-41 [facility] Comment on above: Performed By: #### L 500.4050, L100.0100 #### [facility] [address] [place], [address] MCH (RBC) [Entitic mass] 30.7 pg Normal 27.0-32.0 [facility] Comment on above: Performed By: #### L 500.4050, L100.0100 #### [facility] [address] [place], [address] MCHC (RBC) [Mass/Vol] 32.7 g/dL Normal 32-36 [facility] Comment on above: Performed By: #### L 500.4050, L100.0100 #### [facility] [address] [place], [address] MCV (RBC) [Entitic vol] 93.9 fL Normal 81-99 [facility] Comment on above: Performed By: #### L 500.4050, L100.0100 #### [facility] [address] [place], [address] Monocytes/100 WBC (Bld) 7.1 % Normal 0-10 [facility] Comment on above: Performed By: #### L 500.4050, L100.0100 #### [facility] [address] [place], [address] Neutrophils/100 WBC (Bld) 61.0 % Normal 47-70 [facility] Comment on above: Performed By: #### L 500.4050, L100.0100 #### [facility] [address] [place], [address] Nucleated RBC (Bld) [#/Vol] 0 10*3/uL Normal 0-5 [facility] Comment on above: Performed By: #### L 500.4050, L100.0100 #### [facility] [address] [place], [address] Platelet mean volume (Bld) [Entitic vol] 10.6 fL Normal 6.2-12.0 [facility] Comment on above: Performed By: #### L 500.4050, L100.0100 #### [facility] [address] [place], [address] Platelets (Bld) [#/Vol] 162 10*3/uL Normal 150-450 [facility] Comment on above: Performed By: #### L 500.4050, L100.0100 #### [facility] [address] [place], [address] RBC (Bld) [#/Vol] 4.10 10*6/uL Low 4.2-5.4 [facility] Comment on above: Performed By: #### L 500.4050, L100.0100 #### [facility] [address] [place], [address] RDW SD 46.2 fl High 35.1-43.9 [facility] Comment on above: Performed By: #### L 500.4050, L100.0100 #### [facility] [address] [place], [address] WBC (Bld) [#/Vol] 7.0 10*3/uL Normal 4.4-11.0 [facility] Comment on above: Performed By: #### L 500.4050, L100.0100 #### [facility] [address] [place], [address] Carbon dioxide measurementOr dered By: Stephanie Orta on 05-07-2024 CO2 [Moles/Vol] 29.0 mmol/L 21.0-32.0 [facility] Chloride measurementOrdered By: Stephanie Orta on 05-07-2024 Chloride [Moles/Vol] 106 mmol/L 98-107 [facility] Comprehensive Metabolic Prof ilon 05-07-2024 Albumin [Mass/Vol] 3.7 g/dL Normal 3.2-5.0 [facility] Comment on above: Performed By: #### L 500.4050, L100.0100 #### [facility] [address] [place], [address] Albumin/Globulin [Mass ratio] 1.1 {ratio} Normal 0.9-2.4 [facility] Comment on above: Performed By: #### L 500.4050, L100.0100 #### [facility] [address] [place], [address] ALK P 60 U/L Normal 45-117 [facility] Comment on above: Performed By: #### L 500.4050, L100.0100 #### [facility] [address] [place], [address] ALT [Catalytic activity/Vol] 27 U/L Normal 13-56 [facility] Comment on above: Performed By: #### L 500.4050, L100.0100 #### [facility] [address] [place], [address] AST [Catalytic activity/Vol] 18 U/L Normal 15-37 [facility] Comment on above: Performed By: #### L 500.4050, L100.0100 #### [facility] [address] [place], [address] Bilirubin [Mass/Vol] 0.30 mg/dL Normal 0.20-1.00 [facility] Comment on above: Result Comment: For patients on eltrombopag therapy, use of Dimension [place] TBIL is not recommended. Performed By: #### L 500.4050, L100.0100 #### [facility] [address] [place], [address] BUN/CRE 21.8 RATIO High 10-20 [facility] Comment on above: Performed By: #### L 500.4050, L100.0100 #### [facility] [address] [place], [address] CA,Total 9.4 mg/dL Normal 8.5-10.1 [facility] Comment on above: Performed By: #### L 500.4050, L100.0100 #### [facility] [address] [place], [address] Chloride [Moles/Vol] 106 mmol/L Normal 98-107 [facility] Comment on above: Performed By: #### L 500.4050, L100.0100 #### [facility] [address] [place], [address] CO2 [Moles/Vol] 29.0 mmol/L Normal 21.0-32.0 [facility] Comment on above: Performed By: #### L 500.4050, L100.0100 #### [facility] [address] [place], [address] Creatinine [Mass/Vol] 0.83 mg/dL Normal 0.55-1.02 [facility] Comment on above: Result Comment: The validity of the calculated GFR GFRAA in patients over 70 years has not been determined. Clinical correlation is essential. Performed By: #### L 500.4050, L100.0100 #### [facility] [address] [place], [address] EST GFR - AA 88 mL/min Normal >60 [facility] Comment on above: Result Comment: Afri can Czech GFR Calc Performed By: #### L 500.4050, L100.0100 #### [facility] [address] [place], [address] GAP 5 Normal 5-15 [facility] Comment on above: Performed By: #### L 500.4050, L100.0100 #### [facility] [address] [place], [address] GFR/1.73 sq M.predicted among non-blacks MDRD (S/P/Bld) [Vol rate/Area] 73 mL/min/{1.73_m2} Normal >60 [facility] Comment on above: Result Comment: Non- GFR Calc Performed By: #### L 500.4050, L100.0100 #### [facility] [address] [place], [address] Globulin (S) [Mass/Vol] 3.4 g/dL Normal 2.2-4.2 [facility] Comment on above: Performed By: #### L 500.4050, L100.0100 #### [facility] [address] [place], [address] Glucose [Mass/Vol] 155 mg/dL High 74-106 [facility] Comment on above: Result Comment: Fast ing Glucose result greater than or equal to 126 mg/dL suggests DIABETES MELLITUS per A.D.A. criteria. Performed By: #### L 500.4050, L100.0100 #### [facility] [address] [place], [address] Potassium [Moles/Vol] 3.6 mmol/L Normal 3.5-5.1 [facility] Comment on above: Performed By: #### L 500.4050, L100.0100 #### [facility] [address] [place], [address] Sodium [Moles/Vol] 140 mmol/L Normal 136-145 [facility] Comment on above: Performed By: #### L 500.4050, L100.0100 #### [facility] [address] [place], [address] T PROT 7.1 g/dL Normal 6.4-8.2 [facility] Comment on above: Performed By: #### L 500.4050, L100.0100 #### [facility] [address] [place], [address] Urea nitrogen [Mass/Vol] 18 mg/dL Normal 7-18 [facility] Comment on above: Performed By: #### L 500.4050, L100.0100 #### [facility] [address] [place], [address] Eosinophil percentageOrdered By: Stephanie Orta on 05-07-2024 Eosinophils/100 WBC (Bld) 1.4 % 0-5 [facility] Erythrocyte distribution wid th ratioOrdered By: Stephanie Orta on 05-07-2024 Erythrocyte distribution width (RBC) [Ratio] 13.6 % 11.6-14.6 [facility] Erythrocyte distribution wid th standard deviationOrdered By: Stephanie Orta on 05-07-2024 Erythrocyte distribution width (RBC) [Entitic vol] 46.2 fL High 35.1-43.9 [facility] Estimated glomerular filtrat ion rate (GFR) AmericanOrdered By: Stephanie Orta on 05-07-2024 Estimated GFR (MDRD) Amer 88 mL/min >60 [facility] Comment on above: GFR Calc Glomerular filtration rate ( GFR) estimationOrdered By: Stephanie Orta on 05-07-2024 Estimated GFR (MDRD) Non-Af Amer 73 mL/min >60 [facility] Comment on above: Non- GFR Calc Glucose measurementOrdered B y: Stpehanie Orta on 05-07-2024 Glucose [Mass/Vol] 155 mg/dL High 74-106 [facility] Comment on above: Fasting Glucose resu lt greater than or equal to 126 mg/dL suggests DIABETES MELLITUS per A.D.A. criteria. Hematocrit Auto (Bld) [Volum e fraction]Ordered By: Stephanie Orta on 05-07-2024 Hematocrit (Bld) [Volume fraction] 38.5 % 37-47 [facility] Hemoglobin measurementOrdere d By: Stephanie Orta on 05-07-2024 Hemoglobin (Bld) [Mass/Vol] 12.6 g/dL 12.0-15.0 [facility] Immature granulocytes/100 WB C Auto (Bld)Ordered By: Stephanie Orta on 05-07-2024 Immature granulocytes/100 WBC (Bld) 0.300 % 0.0-0.9 [facility] Comment on above: IG% - Immature Granu locytes (promyelocytes, myelocytes and metamyelocytes) > 1% indicates that a LEFT SHIFT is Present. Laboratory - Chemistry and C hemistry - challengeOrdered By: Stephanie Orta on 05-07-2024 AST [Catalytic activity/Vol] 18 U/L 15-37 [facility] Lymphocytes Auto (Unsp spec) [#/Vol]Ordered By: Stephanie Orta on 05-07-2024 Lymphocytes (Bld) [#/Vol] 2.05 10*3/uL 0.83-4.51 [facility] Lymphocytes/100 WBC Auto (Un sp spec)Ordered By: Stephanie Orta on 05-07-2024 Lymphocytes/100 WBC (Bld) 29.5 % 19-41 [facility] MCV (mean corpuscular volume ) determinationOrdered By: Stephanie Orta on 05-07-2024 MCV (RBC) [Entitic vol] 93.9 fL 81-99 [facility] Mean corpuscular hemoglobin (MCH) determinationOrdered By: Stephanie Orta on 05-07-2024 MCH (RBC) [Entitic mass] 30.7 pg 27.0-32.0 [facility] Mean corpuscular hemoglobin concentration (MCHC) determinationOrdered By: Stephanie Orta on 05-07-2024 MCHC (RBC) [Mass/Vol] 32.7 g/dL 32-36 [facility] Mean platelet volume determi nationOrdered By: Stephanie Orta on 05-07-2024 Platelet mean volume (Bld) [Entitic vol] 10.6 fL 6.2-12.0 [facility] Monocyte percentageOrdered B y: Stephanie Orta on 05-07-2024 Monocytes/100 WBC (Bld) 7.1 % 0-10 [facility] Neutrophil percentageOrdered By: Stephanie Orta on 05-07-2024 Neutrophils/100 WBC (Bld) 61.0 % 47-70 [facility] Nucleated red blood cell per centageOrdered By: Stephanie Orta on 05-07-2024 Nucleated RBC/100 WBC (Bld) [Ratio] 0 % 0-5 [facility] Platelet countOrdered By: Jimenez Orta on 05-07-2024 Platelets (Bld) [#/Vol] 162 10*3/uL 150-450 [facility] Potassium measurementOrdered By: Stephanie Orta on 05-07-2024 Potassium [Moles/Vol] 3.6 mmol/L 3.5-5.1 [facility] RBC Auto (Bld) [#/Vol]Ordere d By: Stephanie Orta on 05-07-2024 RBC (Bld) [#/Vol] 4.10 10*6/uL Low 4.2-5.4 [facility] Serum anion gap measurementO rdered By: Stephanie Orta on 05-07-2024 Anion gap [Moles/Vol] 5 mmol/L 5-15 [facility] Serum globulin measurementOr dered By: Stephanie Orta on 05-07-2024 Globulin (S) [Mass/Vol] 3.4 g/dL 2.2-4.2 [facility] Serum or plasma alanine bradford otransferase (ALT) measurementOrdered By: Stephanie Orta on 05-07-2024 ALT [Catalytic activity/Vol] 27 U/L 13-56 [facility] Serum or plasma albumin blessing urement (mass/volume)Ordered By: Stephanie Orta on 05-07-2024 Albumin [Mass/Vol] 3.7 g/dL 3.2-5.0 [facility] Serum or plasma alkaline mario sphatase measurementOrdered By: Stephanie Orta on 05-07-2024 ALP [Catalytic activity/Vol] 60 U/L 45-117 [facility] Serum or plasma calcium blessing urement (mass/volume)Ordered By: Stephanie Orta on 05-07-2024 Calcium [Mass/Vol] 9.4 mg/dL 8.5-10.1 [facility] Serum or plasma creatinine m easurement (mass/volume)Ordered By: Stephanie Orta on 05-07-2024 Creatinine [Mass/Vol] 0.83 mg/dL 0.55-1.02 [facility] Comment on above: The validity of the calculated GFR & GFRAA in patients over 70 years has not been determined. Clinical correlation is essential. Serum or plasma urea nitroge n measurement (mass/volume)Ordered By: Stephanie Orta on 05-07-2024 Urea nitrogen [Mass/Vol] 18 mg/dL 7-18 [facility] Sodium levelOrdered By: Jennifer Orta on 05-07-2024 Sodium [Moles/Vol] 140 mmol/L 136-145 [facility] Total proteinOrdered By: Maria Del Rosario Orta on 05-07-2024 Protein [Mass/Vol] 7.1 g/dL 6.4-8.2 [facility] White blood cell (WBC) count Ordered By: Stephanie Orta on 05-07-2024 WBC (Bld) [#/Vol] 7.0 10*3/uL 4.4-11.0 [facility] Internal Medicine Office Vis iton 04-23-2024 Internal Medicine Office Visit [facility] [address] [place] [address] [place] [address] OFFICE VISIT Date of Service: 04/23/24 MR#: [id number] Acct: [id number] Name: GISEL SAWYER Rep #: [id number] : 1955 Provider: Dr. 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 History of anxiety, takes hydroxyzine as needed. [...] urination, pain (more content not included)... Normal [facility] Bacteria Ur Culton 4 Bacteria identified Cx [...] , Intermediate >32 , Resistant >64 Abnormal [facility] Comment on above: Performed By: #### 6 30-4 #### [facility] CLIA [id number] [address] [place] [address] [place] CNOVon 03-15-2024 CNOV Office Visit ([facility]) ---- GISEL SAWYER ([id number]) 1955 F Date Time Provider Department 03/15/24 8:45 AM INES ARCOS [facility] During your visit today, we recorded the following information about you: Temperature Pulse Respiration Blood pressure 97.6 degrees 82/minute 20/minute 150/84 Weight 57.6 kg Ines Arcos PA-C 03/15/2024 9:22 AM Signed This note was created using Haparariter. Subjective Gisel Sawyer is a 68 year old female. HPI Patient presents with a chief complaint of urinary frequency, dysuria over the past 3 days. She tried some wywp-xkf-zmtltdc urinary medication which did not seem to [...] with Ma (more content not included)... Normal [facility] UA DIP, URINE (POC)on 2023 BILIRUBIN UA (POCT) Negative Negative [facility] CLARITY UA (POCT) Cloudy [facility] COLOR UA (POCT) Yellow [facility] GLUCOSE UA (POCT) Negative Negative mg/dL [facility] Hemoglobin Ql (U) Small Abnormal Negative [facility] Interpretation and review of laboratory results Abnormal [facility] KETONE UA (POCT) Trace Negative mg/dL [facility] LEUKOCYTES UA (POCT) Moderate Abnormal [facility] N[facility] ([facility]) Negative Negative [facility] PH UA (POCT) 5.5 4.5 - 8.0 [facility] Protein Ql (U) Trace Abnormal Negative mg/dL [facility] SPECIFIC GRAVITY UA (POCT) >=1.030 1.005 - 1.030 [facility] UROBILINOGEN UA (POCT) 0.2 Nicole l E.U./dL [facility] Location:[address], [place], [place], [address] [place] [address] POINT OF CARE [facility] Office Visit Reporton 2023 Office Visit Report [facility] [address] [place] [address] OFFICE VISIT Date of Service: 03/13/24 MR#: [id number] Acct: [id number] Patient: GISEL SAWYER Rep #: [id number] : 1955 Provider: JETT NURSE Age/Sex: 68/F Location[place] [facility] Status: Signed Intake Vital Signs 01/13/24 10:08 Height 5 ft 7 in Intake Visit Reasons: FLU SHOT Chief Complaint: Follow-up chronic conditions Allergies No Known Allergies Allergy (Verified 01/13/24 10:06) Have you fallen in the past year?: No Immunizations Fluad Triv (65y up)(PF) 45 mcg (15 mcg x 3)/0.5 mL IM syringe Performing Provider: Melba Young MD Performing Location: [facility] Administered by: Goldie Zavala on 03/13/24 13:17 Dose Route Admin Location Dispensed Lot Number Expiration Date [facility] Man ufacturer 45 mcg IM Left Deltoid 0.5 mL [id number] 09/07/24 79624-619-14 [employer], [employer]. VIS Given Date VIS Provided VIS Publication [...] Villalpando Signature: Date (if applicable) CC: Normal [facility] Absolute lymphocyte countOrd ered By: Stephanie Orta on 08-19-2023 Lymphocytes Auto (Unsp spec) [#/Vol] 2.32 10*3/uL 0.83-4.51 [facility] Automated lymphocyte count a s percentage of total leukocytesOrdered By: Stephanie Orta on 08-19-2023 Lymphocytes/100 WBC Auto (Unsp spec) 35.2 % 19-41 [facility] Basophil percentageOrdered B y: Stephanie Orta on 08-19-2023 Basophils/100 WBC (Bld) 0.8 % 0-1 [facility] Bilirubin [Mass/Vol] 0.40 mg/dL 0.20-1.00 [facility] Comment on above: For patients on eltr ombopag therapy, use of Dimension [place] TBIL is not recommended. Chloride [Moles/Vol] 107 mmol/L 98-107 [facility] Eosinophils/100 WBC (Bld) 1.5 % 0-5 [facility] Glucose [Mass/Vol] 80 mg/dL 74-106 [facility] Hemoglobin (Bld) [Mass/Vol] 13.3 g/dL 12.0-15.0 [facility] Monocytes/100 WBC (Bld) 7.1 % 0-10 [facility] Neutrophils (Bld) [#/Vol] 3.6 10*3/uL 2.0-7.7 [facility] Neutrophils/100 WBC (Bld) 55.1 % 47-70 [facility] Potassium [Moles/Vol] 3.5 mmol/L 3.5-5.1 [facility] Protein [Mass/Vol] 7.4 g/dL 6.4-8.2 [facility] Sodium [Moles/Vol] 141 mmol/L 136-145 [facility] WBC (Bld) [#/Vol] 6.6 10*3/uL 4.4-11.0 [facility] Determination of erythrocyte mean corpuscular volume (MCV)Ordered By: Stephanie Orta on 08-19-2023 MCV (RBC) [Entitic vol] 94.0 fL 81-99 [facility] Erythrocyte distribution wid th ratioOrdered By: Stephanie Orta on 08-19-2023 Erythrocyte distribution width (RBC) [Ratio] 14.0 % 11.6-14.6 [facility] Erythrocyte distribution wid th standard deviationOrdered By: Stephanie Orta on 08-19-2023 Erythrocyte distribution width (RBC) [Entitic vol] 47.9 fL 35.1-43.9 [facility] Hematocrit Auto (Bld) [Volum e fraction]Ordered By: Stephanie Orta on 08-19-2023 Hematocrit (Bld) [Volume fraction] 42.2 % 37-47 [facility] Immature granulocytes/100 WB C Auto (Bld)Ordered By: Stephanie Orta on 08-19-2023 Immature granulocytes/100 WBC (Bld) 0.300 % 0.0-0.9 [facility] Comment on above: IG% - Immature Granu locytes (promyelocytes, myelocytes and metamyelocytes) > 1% indicates that a LEFT SHIFT is Present. Laboratory - Chemistry and C hemistry - challengeOrdered By: Stephanie Orta on 08-19-2023 Albumin/Globulin [Mass ratio] 1.1 {ratio} 0.9-2.4 [facility] ALP [Catalytic activity/Vol] 65 U/L 45-117 [facility] ALT [Catalytic activity/Vol] 29 U/L 13-56 [facility] CO2 [Moles/Vol] 30.0 mmol/L 21.0-32.0 [facility] Globulin (S) [Mass/Vol] 3.6 g/dL 2.2-4.2 [facility] Urea nitrogen/Creatinine [Mass ratio] 18.4 mg/mg 10-20 [facility] Laboratory - Hematology and Cell countsOrdered By: Stephanie Orta on 08-19-2023 MCH (RBC) [Entitic mass] 29.6 pg 27.0-32.0 [facility] MCHC (RBC) [Mass/Vol] 31.5 g/dL 32-36 [facility] Nucleated RBC/100 WBC (Bld) [Ratio] 0 % 0-5 [facility] Platelet mean volume (Bld) [Entitic vol] 11.8 fL 6.2-12.0 [facility] Platelets (Bld) [#/Vol] 170 10*3/uL 150-450 [facility] No Panel InformationOrdered By: Stephanie Orta on 08-19-2023 Estimated GFR (MDRD) Amer 78 mL/min >60 [facility] Comment on above: GFR Calc Estimated GFR (MDRD) Non-Af Amer 64 mL/min >60 [facility] Comment on above: Non- GFR Calc RBC Auto (Bld) [#/Vol]Ordere d By: Stephanie Orta on 08-19-2023 RBC (Bld) [#/Vol] 4.49 10*6/uL 4.2-5.4 [facility] Serum or plasma calcium blessing urement (mass/volume)Ordered By: Stephanie Orta on 08-19-2023 Calcium [Mass/Vol] 9.4 mg/dL 8.5-10.1 [facility] Serum or plasma creatinine m easurement (mass/volume)Ordered By: Stephanie Orta on 08-19-2023 Creatinine [Mass/Vol] 0.92 mg/dL 0.55-1.02 [facility] Comment on above: The validity of the calculated GFR & GFRAA in patients over 70 years has not been determined. Clinical correlation is essential. Serum or plasma urea nitroge n measurement (mass/volume)Ordered By: Stephanie Orta on 08-19-2023 Urea nitrogen [Mass/Vol] 17 mg/dL 7-18 [facility] Thin prep Papanicolaou smear with manual screeningOrdered By: Stephanie Orta on 08-19-2023 Thin prep Papanicolaou smear with manual screening 3.8 g/dL 3.2-5.0 [facility] Thin prep Papanicolaou smear with manual screening 21 U/L 15-37 [facility] Thin prep Papanicolaou smear with manual screening 4 5-15 [facility] Absolute lymphocyte countOrd ered By: Stephanie Orta on 05-25-2023 Lymphocytes Auto (Unsp spec) [#/Vol] 2.16 10*3/uL 0.83-4.51 [facility] Automated lymphocyte count a s percentage of total leukocytesOrdered By: Stephanie Orta on 05-25-2023 Lymphocytes/100 WBC Auto (Unsp spec) 27.3 % 19-41 [facility] Basophil percentageOrdered B y: Stephanie Orta on 05-25-2023 Basophils/100 WBC (Bld) 0.6 % 0-1 [facility] Bilirubin [Mass/Vol] 0.40 mg/dL 0.20-1.00 [facility] Comment on above: For patients on eltr ombopag therapy, use of Dimension [place] TBIL is not recommended. Chloride [Moles/Vol] 109 mmol/L 98-107 [facility] Eosinophils/100 WBC (Bld) 1.1 % 0-5 [facility] Glucose [Mass/Vol] 107 mg/dL 74-106 [facility] Comment on above: Fasting Glucose resu lt from 100 to 125 mg/dL suggests IMPAIRED HOMEOSTASIS per A.D.A. criteria. Hemoglobin (Bld) [Mass/Vol] 13.5 g/dL 12.0-15.0 [facility] Monocytes/100 WBC (Bld) 6.8 % 0-10 [facility] Neutrophils (Bld) [#/Vol] 5.0 10*3/uL 2.0-7.7 [facility] Neutrophils/100 WBC (Bld) 63.7 % 47-70 [facility] Potassium [Moles/Vol] 3.7 mmol/L 3.5-5.1 [facility] Protein [Mass/Vol] 7.2 g/dL 6.4-8.2 [facility] Sodium [Moles/Vol] 142 mmol/L 136-145 [facility] WBC (Bld) [#/Vol] 7.9 10*3/uL 4.4-11.0 [facility] Determination of erythrocyte mean corpuscular volume (MCV)Ordered By: Stephanie Orta on 05-25-2023 MCV (RBC) [Entitic vol] 94.4 fL 81-99 [facility] Erythrocyte distribution wid th ratioOrdered By: Stephanie Orta on 05-25-2023 Erythrocyte distribution width (RBC) [Ratio] 13.9 % 11.6-14.6 [facility] Erythrocyte distribution wid th standard deviationOrdered By: Stephanie Orta on 05-25-2023 Erythrocyte distribution width (RBC) [Entitic vol] 48.7 fL 35.1-43.9 [facility] Hematocrit Auto (Bld) [Volum e fraction]Ordered By: Stephanie Orta on 05-25-2023 Hematocrit (Bld) [Volume fraction] 42.2 % 37-47 [facility] Immature granulocytes/100 WB C Auto (Bld)Ordered By: [facility] You on 05-25-2023 Immature granulocytes/100 WBC (Bld) 0.500 % 0.0-0.9 [facility] Comment on above: IG% - Immature Granu locytes (promyelocytes, myelocytes and metamyelocytes) > 1% indicates that a LEFT SHIFT is Present. Laboratory - Chemistry and C hemistry - challengeOrdered By: Stephanie Orta on 05-25-2023 Albumin/Globulin [Mass ratio] 1.1 {ratio} 0.9-2.4 [facility] ALP [Catalytic activity/Vol] 60 U/L 45-117 [facility] ALT [Catalytic activity/Vol] 35 U/L 13-56 [facility] CO2 [Moles/Vol] 29.0 mmol/L 21.0-32.0 [facility] Globulin (S) [Mass/Vol] 3.5 g/dL 2.2-4.2 [facility] Urea nitrogen/Creatinine [Mass ratio] 23.7 mg/mg 10-20 [facility] Laboratory - Hematology and Cell countsOrdered By: Stephanie Orta on 05-25-2023 MCH (RBC) [Entitic mass] 30.2 pg 27.0-32.0 [facility] MCHC (RBC) [Mass/Vol] 32.0 g/dL 32-36 [facility] Nucleated RBC/100 WBC (Bld) [Ratio] 0 % 0-5 [facility] Platelets (Bld) [#/Vol] 210 10*3/uL 150-450 [facility] No Panel InformationOrdered By: Stephanie Orta on 05-25-2023 Estimated GFR (MDRD) Amer 111 mL/min >60 [facility] Comment on above: GFR Calc Estimated GFR (MDRD) Non-Af Amer 92 mL/min >60 [facility] Comment on above: Non- GFR Calc Platelet mean volume Myles-Ec ker (Bld) [Entitic vol]Ordered By: Stephanie Orta on 05-25-2023 Platelet mean volume (Bld) [Entitic vol] 10.8 fL 6.2-12.0 [facility] RBC Auto (Bld) [#/Vol]Ordere d By: Stephanie Orta on 05-25-2023 RBC (Bld) [#/Vol] 4.47 10*6/uL 4.2-5.4 [facility] Serum or plasma calcium blessing urement (mass/volume)Ordered By: Stephanie Orta on 05-25-2023 Calcium [Mass/Vol] 9.2 mg/dL 8.5-10.1 [facility] Serum or plasma creatinine m easurement (mass/volume)Ordered By: Stephanie Orta on 05-25-2023 Creatinine [Mass/Vol] 0.68 mg/dL 0.55-1.02 [facility] Comment on above: The validity of the calculated GFR & GFRAA in patients over 70 years has not been determined. Clinical correlation is essential. Serum or plasma urea nitroge n measurement (mass/volume)Ordered By: Stephanie Orta on 05-25-2023 Urea nitrogen [Mass/Vol] 16 mg/dL 7-18 [facility] Thin prep Papanicolaou smear with manual screeningOrdered By: Stephanie Orta on 05-25-2023 Thin prep Papanicolaou smear with manual screening 3.7 g/dL 3.2-5.0 [facility] Thin prep Papanicolaou smear with manual screening 28 U/L 15-37 [facility] Thin prep Papanicolaou smear with manual screening 4 5-15 [facility] Absolute lymphocyte countOrd ered By: Stephanie Orta on 02-18-2023 Lymphocytes Auto (Unsp spec) [#/Vol] 2.31 10*3/uL 0.83-4.51 [facility] Basophil percentageOrdered B y: Stephanie Orta on 02-18-2023 Basophils/100 WBC (Bld) 0.7 % 0-1 [facility] Bilirubin [Mass/Vol] 0.30 mg/dL 0.20-1.00 [facility] Comment on above: For patients on eltr ombopag therapy, use of Dimension [place] TBIL is not recommended. Chloride [Moles/Vol] 109 mmol/L 98-107 [facility] Eosinophils/100 WBC (Bld) 1.2 % 0-5 [facility] Glucose [Mass/Vol] 99 mg/dL 74-106 [facility] Neutrophils (Bld) [#/Vol] 3.7 10*3/uL 2.0-7.7 [facility] Neutrophils/100 WBC (Bld) 54.7 % 47-70 [facility] Potassium [Moles/Vol] 3.9 mmol/L 3.5-5.1 [facility] Protein [Mass/Vol] 7.3 g/dL 6.4-8.2 [facility] Sodium [Moles/Vol] 140 mmol/L 136-145 [facility] WBC (Bld) [#/Vol] 6.8 10*3/uL 4.4-11.0 [facility] Blood erythrocytes count (nu mber/volume)Ordered By: Stephanie Orta on 02-18-2023 RBC (Bld) [#/Vol] 4.26 10*6/uL 4.2-5.4 [facility] Blood hemoglobin measurement (mass/volume)Ordered By: Stephanie Orta on 02-18-2023 Hemoglobin (Bld) [Mass/Vol] 12.8 g/dL 12.0-15.0 [facility] Blood lymphocytes/100 leukoc ytesOrdered By: Stephanie Orta on 02-18-2023 Lymphocytes/100 WBC (Bld) 34.0 % 19-41 [facility] Blood monocytes/100 leukocyt esOrdered By: Stephanie Orta on 02-18-2023 Monocytes/100 WBC (Bld) 9.1 % 0-10 [facility] Blood platelet mean volumeOr dered By: Stephanie Orta on 02-18-2023 Platelet mean volume (Bld) [Entitic vol] 10.9 fL 6.2-12.0 [facility] Determination of erythrocyte mean corpuscular volume (MCV)Ordered By: Stephanie Orta on 02-18-2023 MCV (RBC) [Entitic vol] 96.9 fL 81-99 [facility] Hematocrit Auto (Bld) [Volum e fraction]Ordered By: Stephanie Orta on 02-18-2023 Hematocrit (Bld) [Volume fraction] 41.3 % 37-47 [facility] Laboratory - Chemistry and C hemistry - challengeOrdered By: Stephanie Orta on 02-18-2023 ALP [Catalytic activity/Vol] 67 U/L 45-117 [facility] ALT [Catalytic activity/Vol] 31 U/L 13-56 [facility] CO2 [Moles/Vol] 26.0 mmol/L 21.0-32.0 [facility] Globulin (S) [Mass/Vol] 3.6 g/dL 2.2-4.2 [facility] Urea nitrogen/Creatinine [Mass ratio] 24.5 mg/mg 10-20 [facility] Laboratory - Hematology and Cell countsOrdered By: Stephaniemichelle Orta on 02-18-2023 Erythrocyte distribution width (RBC) [Entitic vol] 49.7 fL 35.1-43.9 [facility] Erythrocyte distribution width (RBC) [Ratio] 14.1 % 11.6-14.6 [facility] Immature granulocytes/100 WBC (Bld) 0.300 % 0.0-0.9 [facility] Comment on above: IG% - Immature Granu locytes (promyelocytes, myelocytes and metamyelocytes) > 1% indicates that a LEFT SHIFT is Present. MCH (RBC) [Entitic mass] 30.0 pg 27.0-32.0 [facility] Nucleated RBC/100 WBC (Bld) [Ratio] 0 % 0-5 [facility] MCHC Auto (RBC) [Mass/Vol]Or dered By: Stephanie Orta on 02-18-2023 MCHC (RBC) [Mass/Vol] 31.0 g/dL 32-36 [facility] No Panel InformationOrdered By: Stephanie Orat on 02-18-2023 Estimated GFR (MDRD) Amer 73 mL/min >60 [facility] Comment on above: GFR Calc Estimated GFR (MDRD) Non-Af Amer 60 mL/min >60 [facility] Comment on above: Non- GFR Calc Platelets bldOrdered By: Maria Del Rosario Orta on 02-18-2023 Platelets (Bld) [#/Vol] 191 10*3/uL 150-450 [facility] Serum or plasma albumin blessing urement (mass/volume)Ordered By: Stephanie Orta on 02-18-2023 Albumin [Mass/Vol] 3.7 g/dL 3.2-5.0 [facility] Serum or plasma albumin/glob ulin mass ratioOrdered By: Stephanie Orta on 02-18-2023 Albumin/Globulin [Mass ratio] 1.0 {ratio} 0.9-2.4 [facility] Serum or plasma calcium blessing urement (mass/volume)Ordered By: Stephanie Orta on 02-18-2023 Calcium [Mass/Vol] 9.4 mg/dL 8.5-10.1 [facility] Serum or plasma creatinine m easurement (mass/volume)Ordered By: Stephanie Orta on 02-18-2023 Creatinine [Mass/Vol] 0.98 mg/dL 0.55-1.02 [facility] Comment on above: The validity of the calculated GFR & GFRAA in patients over 70 years has not been determined. Clinical correlation is essential. Serum or plasma urea nitroge n measurement (mass/volume)Ordered By: Stephanie Orta on 02-18-2023 Urea nitrogen [Mass/Vol] 24 mg/dL 7-18 [facility] Thin prep Papanicolaou smear with manual screeningOrdered By: Stephanie Orta on 02-18-2023 Thin prep Papanicolaou smear with manual screening 19 U/L 15-37 [facility] Thin prep Papanicolaou smear with manual screening 5 5-15 [facility] Absolute lymphocyte countOrd ered By: Stephanie Orta on 11-30-2022 Lymphocytes Auto (Unsp spec) [#/Vol] 2.21 10*3/uL 0.83-4.51 [facility] Basophil percentageOrdered B y: Stephanie Orta on 11-30-2022 Basophils/100 WBC (Bld) 0.7 % 0-1 [facility] Bilirubin [Mass/Vol] 0.20 mg/dL 0.20-1.00 [facility] Comment on above: For patients on eltr ombopag therapy, use of Dimension [place] TBIL is not recommended. Chloride [Moles/Vol] 109 mmol/L 98-107 [facility] Eosinophils/100 WBC (Bld) 1.9 % 0-5 [facility] Glucose [Mass/Vol] 103 mg/dL 74-106 [facility] Comment on above: Fasting Glucose resu lt from 100 to 125 mg/dL suggests IMPAIRED HOMEOSTASIS per A.D.A. criteria. Neutrophils (Bld) [#/Vol] 4.1 10*3/uL 2.0-7.7 [facility] Neutrophils/100 WBC (Bld) 57.4 % 47-70 [facility] Potassium [Moles/Vol] 3.8 mmol/L 3.5-5.1 [facility] Protein [Mass/Vol] 7.1 g/dL 6.4-8.2 [facility] Sodium [Moles/Vol] 140 mmol/L 136-145 [facility] WBC (Bld) [#/Vol] 7.2 10*3/uL 4.4-11.0 [facility] Blood erythrocytes count (nu mber/volume)Ordered By: Stephanie Orta on 11-30-2022 RBC (Bld) [#/Vol] 4.30 10*6/uL 4.2-5.4 [facility] Blood hemoglobin measurement (mass/volume)Ordered By: Stephanie Orta on 11-30-2022 Hemoglobin (Bld) [Mass/Vol] 13.2 g/dL 12.0-15.0 [facility] Blood lymphocytes/100 leukoc ytesOrdered By: Stephanie Orta on 11-30-2022 Lymphocytes/100 WBC (Bld) 30.6 % 19-41 [facility] Blood monocytes/100 leukocyt esOrdered By: Stephanie Orta on 11-30-2022 Monocytes/100 WBC (Bld) 9.3 % 0-10 [facility] Blood platelet mean volumeOr dered By: Stephanie Orta on 11-30-2022 Platelet mean volume (Bld) [Entitic vol] 11.3 fL 6.2-12.0 [facility] Determination of erythrocyte mean corpuscular volume (MCV)Ordered By: Stephanie Orta on 11-30-2022 MCV (RBC) [Entitic vol] 94.4 fL 81-99 [facility] Hematocrit Auto (Bld) [Volum e fraction]Ordered By: Stephanie Orta on 11-30-2022 Hematocrit (Bld) [Volume fraction] 40.6 % 37-47 [facility] Laboratory - Chemistry and C hemistry - challengeOrdered By: Stephaniemichelle Orta on 11-30-2022 ALP [Catalytic activity/Vol] 67 U/L 45-117 [facility] ALT [Catalytic activity/Vol] 31 U/L 13-56 [facility] CO2 [Moles/Vol] 26.0 mmol/L 21.0-32.0 [facility] Globulin (S) [Mass/Vol] 3.4 g/dL 2.2-4.2 [facility] Urea nitrogen/Creatinine [Mass ratio] 21.9 mg/mg 10-20 [facility] Laboratory - Hematology and Cell countsOrdered By: Stephanie Orta on 11-30-2022 Erythrocyte distribution width (RBC) [Entitic vol] 46.5 fL 35.1-43.9 [facility] Erythrocyte distribution width (RBC) [Ratio] 13.5 % 11.6-14.6 [facility] Immature granulocytes/100 WBC (Bld) 0.100 % 0.0-0.9 [facility] Comment on above: IG% - Immature Granu locytes (promyelocytes, myelocytes and metamyelocytes) > 1% indicates that a LEFT SHIFT is Present. MCH (RBC) [Entitic mass] 30.7 pg 27.0-32.0 [facility] Nucleated RBC/100 WBC (Bld) [Ratio] 0 % 0-5 [facility] MCHC Auto (RBC) [Mass/Vol]Or dered By: Stephanie Orta on 11-30-2022 MCHC (RBC) [Mass/Vol] 32.5 g/dL 32-36 [facility] No Panel InformationOrdered By: Stephanie Orta on 11-30-2022 Estimated GFR (MDRD) Amer 67 mL/min >60 [facility] Comment on above: GFR Calc Estimated GFR (MDRD) Non-Af Amer 56 mL/min >60 [facility] Comment on above: Non- GFR Calc Platelets bldOrdered By: Maria Del Rosario Orta on 11-30-2022 Platelets (Bld) [#/Vol] 156 10*3/uL 150-450 [facility] Serum or plasma albumin blessing urement (mass/volume)Ordered By: Stephanie Orta on 11-30-2022 Albumin [Mass/Vol] 3.7 g/dL 3.2-5.0 [facility] Serum or plasma albumin/glob ulin mass ratioOrdered By: Stephanie Orta on 11-30-2022 Albumin/Globulin [Mass ratio] 1.1 {ratio} 0.9-2.4 [facility] Serum or plasma calcium blessing urement (mass/volume)Ordered By: Stephanie Orta on 11-30-2022 Calcium [Mass/Vol] 9.2 mg/dL 8.5-10.1 [facility] Serum or plasma creatinine m easurement (mass/volume)Ordered By: Stephanie Orta on 11-30-2022 Creatinine [Mass/Vol] 1.05 mg/dL 0.55-1.02 [facility] Comment on above: The validity of the calculated GFR & GFRAA in patients over 70 years has not been determined. Clinical correlation is essential. Serum or plasma urea nitroge n measurement (mass/volume)Ordered By: Stephanie Orta on 11-30-2022 Urea nitrogen [Mass/Vol] 23 mg/dL 7-18 [facility] Thin prep Papanicolaou smear with manual screeningOrdered By: Stephanie Orta on 11-30-2022 Thin prep Papanicolaou smear with manual screening 26 U/L 15-37 [facility] Thin prep Papanicolaou smear with manual screening 5 5-15 [facility] Absolute lymphocyte countOrd ered By: Dr. Orta on 09-02-2022 Lymphocytes Auto (Unsp spec) [#/Vol] 2.64 10*3/uL 0.83-4.51 [facility] Basophil percentageOrdered B y: Dr. Orta on 09-02-2022 Basophils/100 WBC (Bld) 0.7 % 0-1 [facility] Bilirubin [Mass/Vol] 0.40 mg/dL 0.20-1.00 [facility] Comment on above: For patients on eltr ombopag therapy, use of Dimension [place] TBIL is not recommended. Chloride [Moles/Vol] 107 mmol/L 98-107 [facility] Eosinophils/100 WBC (Bld) 1.0 % 0-5 [facility] Glucose [Mass/Vol] 104 mg/dL 74-106 [facility] Comment on above: Fasting Glucose resu lt from 100 to 125 mg/dL suggests IMPAIRED HOMEOSTASIS per A.D.A. criteria. Neutrophils (Bld) [#/Vol] 3.9 10*3/uL 2.0-7.7 [facility] Neutrophils/100 WBC (Bld) 53.3 % 47-70 [facility] Potassium [Moles/Vol] 3.8 mmol/L 3.5-5.1 [facility] Protein [Mass/Vol] 7.7 g/dL 6.4-8.2 [facility] Sodium [Moles/Vol] 138 mmol/L 136-145 [facility] WBC (Bld) [#/Vol] 7.3 10*3/uL 4.4-11.0 [facility] Blood erythrocytes count (nu mber/volume)Ordered By: Dr. Orta on 09-02-2022 RBC (Bld) [#/Vol] 4.41 10*6/uL 4.2-5.4 [facility] Blood hemoglobin measurement (mass/volume)Ordered By: Dr. Orta on 09-02-2022 Hemoglobin (Bld) [Mass/Vol] 13.5 g/dL 12.0-15.0 [facility] Blood lymphocytes/100 leukoc ytesOrdered By: Dr. Orta on 09-02-2022 Lymphocytes/100 WBC (Bld) 36.1 % 19-41 [facility] Blood monocytes/100 leukocyt esOrdered By: Dr. Orta on 09-02-2022 Monocytes/100 WBC (Bld) 8.6 % 0-10 [facility] Blood platelet mean volumeOr dered By: Dr. Orta on 09-02-2022 Platelet mean volume (Bld) [Entitic vol] 11.6 fL 6.2-12.0 [facility] Determination of erythrocyte mean corpuscular volume (MCV)Ordered By: Dr. Orta on 09-02-2022 MCV (RBC) [Entitic vol] 95.0 fL 81-99 [facility] Hematocrit Auto (Bld) [Volum e fraction]Ordered By: Dr. Orta on 09-02-2022 Hematocrit (Bld) [Volume fraction] 41.9 % 37-47 [facility] Laboratory - Chemistry and C hemistry - challengeOrdered By: Dr. Orta on 09-02-2022 ALP [Catalytic activity/Vol] 61 U/L 45-117 [facility] ALT [Catalytic activity/Vol] 43 U/L 13-56 [facility] CO2 [Moles/Vol] 28.0 mmol/L 21.0-32.0 [facility] Globulin (S) [Mass/Vol] 3.8 g/dL 2.2-4.2 [facility] Urea nitrogen/Creatinine [Mass ratio] 25.6 mg/mg 10-20 [facility] Laboratory - Hematology and Cell countsOrdered By: Dr. Orta on 09-02-2022 Erythrocyte distribution width (RBC) [Entitic vol] 47.9 fL 35.1-43.9 [facility] Erythrocyte distribution width (RBC) [Ratio] 13.7 % 11.6-14.6 [facility] Immature granulocytes/100 WBC (Bld) 0.300 % 0.0-0.9 [facility] Comment on above: IG% - Immature Granu locytes (promyelocytes, myelocytes and metamyelocytes) > 1% indicates that a LEFT SHIFT is Present. MCH (RBC) [Entitic mass] 30.6 pg 27.0-32.0 [facility] Nucleated RBC/100 WBC (Bld) [Ratio] 0 % 0-5 [facility] MCHC Auto (RBC) [Mass/Vol]Or dered By: Dr. Orta on 09-02-2022 MCHC (RBC) [Mass/Vol] 32.2 g/dL 32-36 [facility] No Panel InformationOrdered By: Dr. Orta on 09-02-2022 Estimated GFR (MDRD) Amer 95 mL/min >60 [facility] Comment on above: GFR Calc Estimated GFR (MDRD) Non-Af Amer 78 mL/min >60 [facility] Comment on above: Non- GFR Calc Platelets bldOrdered By: Dr. Orta on 09-02-2022 Platelets (Bld) [#/Vol] 154 10*3/uL 150-450 [facility] Serum or plasma albumin blessing urement (mass/volume)Ordered By: Dr. Orta on 09-02-2022 Albumin [Mass/Vol] 3.9 g/dL 3.2-5.0 [facility] Serum or plasma albumin/glob ulin mass ratioOrdered By: Dr. Orta on 09-02-2022 Albumin/Globulin [Mass ratio] 1.0 {ratio} 0.9-2.4 [facility] Serum or plasma calcium blessing urement (mass/volume)Ordered By: Dr. Orta on 09-02-2022 Calcium [Mass/Vol] 9.5 mg/dL 8.5-10.1 [facility] Serum or plasma creatinine m easurement (mass/volume)Ordered By: Dr. Orta on 09-02-2022 Creatinine [Mass/Vol] 0.78 mg/dL 0.55-1.02 [facility] Comment on above: The validity of the calculated GFR & GFRAA in patients over 70 years has not been determined. Clinical correlation is essential. Serum or plasma urea nitroge n measurement (mass/volume)Ordered By: Dr. Orta on 09-02-2022 Urea nitrogen [Mass/Vol] 20 mg/dL 7-18 [facility] Thin prep Papanicolaou smear with manual screeningOrdered By: Dr. Orta on 09-02-2022 Thin prep Papanicolaou smear with manual screening 26 U/L 15-37 [facility] Thin prep Papanicolaou smear with manual screening 3 5-15 [facility] Absolute lymphocyte countOrd ered By: Dr. Young on 06-18-2022 Lymphocytes Auto (Unsp spec) [#/Vol] 2.47 10*3/uL 0.83-4.51 [facility] Basophil percentageOrdered B y: Dr. Young on 06-18-2022 Basophils/100 WBC (Bld) 0.7 % 0-1 [facility] Eosinophils/100 WBC (Bld) 0.9 % 0-5 [facility] Neutrophils (Bld) [#/Vol] 4.4 10*3/uL 2.0-7.7 [facility] Neutrophils/100 WBC (Bld) 57.7 % 47-70 [facility] WBC (Bld) [#/Vol] 7.6 10*3/uL 4.4-11.0 [facility] Bilirubin [Mass/Vol] 0.30 mg/dL 0.20-1.00 [facility] Comment on above: For patients on eltr ombopag therapy, use of Dimension [place] TBIL is not recommended. Chloride [Moles/Vol] 107 mmol/L 98-107 [facility] Glucose [Mass/Vol] 101 mg/dL 74-106 [facility] Comment on above: Fasting Glucose resu lt from 100 to 125 mg/dL suggests IMPAIRED HOMEOSTASIS per A.D.A. criteria. Potassium [Moles/Vol] 4.0 mmol/L 3.5-5.1 [facility] Protein [Mass/Vol] 7.5 g/dL 6.4-8.2 [facility] Sodium [Moles/Vol] 142 mmol/L 136-145 [facility] Blood erythrocytes count (nu mber/volume)Ordered By: Dr. Young on 06-18-2022 RBC (Bld) [#/Vol] 4.40 10*6/uL 4.2-5.4 [facility] Blood hemoglobin measurement (mass/volume)Ordered By: Dr. Young on 06-18-2022 Hemoglobin (Bld) [Mass/Vol] 13.3 g/dL 12.0-15.0 [facility] Blood lymphocytes/100 leukoc ytesOrdered By: Dr. Young on 06-18-2022 Lymphocytes/100 WBC (Bld) 32.4 % 19-41 [facility] Blood monocytes/100 leukocyt esOrdered By: Dr. Young on 06-18-2022 Monocytes/100 WBC (Bld) 7.9 % 0-10 [facility] Blood platelet mean volumeOr dered By: Dr. Young on 06-18-2022 Platelet mean volume (Bld) [Entitic vol] 11.3 fL 6.2-12.0 [facility] Determination of erythrocyte mean corpuscular volume (MCV)Ordered By: Dr. Young on 06-18-2022 MCV (RBC) [Entitic vol] 95.0 fL 81-99 [facility] Hematocrit Auto (Bld) [Volum e fraction]Ordered By: Dr. Young on 06-18-2022 Hematocrit (Bld) [Volume fraction] 41.8 % 37-47 [facility] Laboratory - Chemistry and C hemistry - challengeOrdered By: Dr. Young on 06-18-2022 ALP [Catalytic activity/Vol] 50 U/L 45-117 [facility] ALT [Catalytic activity/Vol] 31 U/L 13-56 [facility] CO2 [Moles/Vol] 27.0 mmol/L 21.0-32.0 [facility] Globulin (S) [Mass/Vol] 3.6 g/dL 2.2-4.2 [facility] Urea nitrogen/Creatinine [Mass ratio] 20.1 mg/mg 10-20 [facility] Laboratory - Hematology and Cell countsOrdered By: Dr. Young on 06-18-2022 Erythrocyte distribution width (RBC) [Entitic vol] 48.5 fL 35.1-43.9 [facility] Erythrocyte distribution width (RBC) [Ratio] 13.9 % 11.6-14.6 [facility] Immature granulocytes/100 WBC (Bld) 0.400 % 0.0-0.9 [facility] Comment on above: IG% - Immature Granu locytes (promyelocytes, myelocytes and metamyelocytes) > 1% indicates that a LEFT SHIFT is Present. MCH (RBC) [Entitic mass] 30.2 pg 27.0-32.0 [facility] Nucleated RBC/100 WBC (Bld) [Ratio] 0 % 0-5 [facility] MCHC Auto (RBC) [Mass/Vol]Or dered By: Dr. Young on 06-18-2022 MCHC (RBC) [Mass/Vol] 31.8 g/dL 32-36 [facility] No Panel InformationOrdered By: Dr. Young on 06-18-2022 Estimated GFR (MDRD) Amer 72 mL/min >60 [facility] Comment on above: GFR Calc Estimated GFR (MDRD) Non-Af Amer 59 mL/min >60 [facility] Comment on above: Non- GFR Calc Vitamin D 25-Hydroxy 104.3 ng/mL [facility] Comment on above: Vitamin D 25(OH) Sta [...] elevated values when tested with the [employer] Vitamin D assay. With fluorescein interference, observed Vitamin D values can be as high as >150 ng/mL (>375 nmol/L). Samples should be resubmitted post fluorescein clearance to ensure there is no interference with Vitamin D test results. Platelets bldOrdered By: Dr. Young on 06-18-2022 Platelets (Bld) [#/Vol] 159 10*3/uL 150-450 [facility] Serum or plasma albumin blessing urement (mass/volume)Ordered By: Dr. Young on 06-18-2022 Albumin [Mass/Vol] 3.9 g/dL 3.2-5.0 [facility] Serum or plasma albumin/glob ulin mass ratioOrdered By: Dr. Young on 06-18-2022 Albumin/Globulin [Mass ratio] 1.1 {ratio} 0.9-2.4 [facility] Serum or plasma calcium blessing urement (mass/volume)Ordered By: Dr. Young on 06-18-2022 Calcium [Mass/Vol] 9.1 mg/dL 8.5-10.1 [facility] Serum or plasma creatinine m easurement (mass/volume)Ordered By: Dr. Young on 06-18-2022 Creatinine [Mass/Vol] 0.99 mg/dL 0.55-1.02 [facility] Comment on above: The validity of the calculated GFR & GFRAA in patients over 70 years has not been determined. Clinical correlation is essential. Serum or plasma urea nitroge n measurement (mass/volume)Ordered By: Dr. Young on 06-18-2022 Urea nitrogen [Mass/Vol] 20 mg/dL 7-18 [facility] Thin prep Papanicolaou smear with manual screeningOrdered By: Dr. Young on 06-18-2022 Thin prep Papanicolaou smear with manual screening 20 U/L 15-37 [facility] Thin prep Papanicolaou smear with manual screening 8 5-15 [facility] Absolute lymphocyte countOrd ered By: Dr. Orta on 03-29-2022 Lymphocytes Auto (Unsp spec) [#/Vol] 1.87 10*3/uL 0.83-4.51 [facility] Basophil percentageOrdered B y: Dr. Orta on 03-29-2022 Basophils/100 WBC (Bld) 0.7 % 0-1 [facility] Bilirubin [Mass/Vol] 0.40 mg/dL 0.20-1.00 [facility] Comment on above: For patients on eltr ombopag therapy, use of Dimension [place] TBIL is not recommended. Chloride [Moles/Vol] 105 mmol/L 98-107 [facility] Eosinophils/100 WBC (Bld) 0.4 % 0-5 [facility] Glucose [Mass/Vol] 86 mg/dL 74-106 [facility] Neutrophils (Bld) [#/Vol] 4.9 10*3/uL 2.0-7.7 [facility] Neutrophils/100 WBC (Bld) 65.5 % 47-70 [facility] Potassium [Moles/Vol] 3.8 mmol/L 3.5-5.1 [facility] Protein [Mass/Vol] 7.5 g/dL 6.4-8.2 [facility] Sodium [Moles/Vol] 139 mmol/L 136-145 [facility] WBC (Bld) [#/Vol] 7.4 10*3/uL 4.4-11.0 [facility] Blood erythrocytes count (nu mber/volume)Ordered By: Dr. Orta on 03-29-2022 RBC (Bld) [#/Vol] 4.51 10*6/uL 4.2-5.4 [facility] Blood hemoglobin measurement (mass/volume)Ordered By: Dr. Orta on 03-29-2022 Hemoglobin (Bld) [Mass/Vol] 13.9 g/dL 12.0-15.0 [facility] Blood lymphocytes/100 leukoc ytesOrdered By: Dr. Orta on 03-29-2022 Lymphocytes/100 WBC (Bld) 25.2 % 19-41 [facility] Blood monocytes/100 leukocyt esOrdered By: Dr. Orta on 03-29-2022 Monocytes/100 WBC (Bld) 8.1 % 0-10 [facility] Blood platelet mean volumeOr dered By: Dr. Orta on 03-29-2022 Platelet mean volume (Bld) [Entitic vol] 11.0 fL 6.2-12.0 [facility] Determination of erythrocyte mean corpuscular volume (MCV)Ordered By: Dr. Orta on 03-29-2022 MCV (RBC) [Entitic vol] 93.8 fL 81-99 [facility] Hematocrit Auto (Bld) [Volum e fraction]Ordered By: Dr. Orta on 03-29-2022 Hematocrit (Bld) [Volume fraction] 42.3 % 37-47 [facility] Laboratory - Chemistry and C hemistry - challengeOrdered By: Dr. Orta on 03-29-2022 ALP [Catalytic activity/Vol] 51 U/L 45-117 [facility] ALT [Catalytic activity/Vol] 29 U/L 13-56 [facility] CO2 [Moles/Vol] 26.0 mmol/L 21.0-32.0 [facility] Globulin (S) [Mass/Vol] 3.6 g/dL 2.2-4.2 [facility] Urea nitrogen/Creatinine [Mass ratio] 28.0 mg/mg 10-20 [facility] Laboratory - Hematology and Cell countsOrdered By: Dr. Orta on 03-29-2022 Erythrocyte distribution width (RBC) [Entitic vol] 46.5 fL 35.1-43.9 [facility] Erythrocyte distribution width (RBC) [Ratio] 13.5 % 11.6-14.6 [facility] Immature granulocytes/100 WBC (Bld) 0.100 % 0.0-0.9 [facility] Comment on above: IG% - Immature Granu locytes (promyelocytes, myelocytes and metamyelocytes) > 1% indicates that a LEFT SHIFT is Present. MCH (RBC) [Entitic mass] 30.8 pg 27.0-32.0 [facility] Nucleated RBC/100 WBC (Bld) [Ratio] 0 % 0-5 [facility] MCHC Auto (RBC) [Mass/Vol]Or dered By: Dr. Orta on 03-29-2022 MCHC (RBC) [Mass/Vol] 32.9 g/dL 32-36 [facility] No Panel InformationOrdered By: Dr. Orta on 03-29-2022 Estimated GFR (MDRD) Amer 99 mL/min >60 [facility] Comment on above: GFR Calc Estimated GFR (MDRD) Non-Af Amer 82 mL/min >60 [facility] Comment on above: Non- GFR Calc Platelets bldOrdered By: Dr. Orta on 03-29-2022 Platelets (Bld) [#/Vol] 146 10*3/uL 150-450 [facility] Serum or plasma albumin blessing urement (mass/volume)Ordered By: Dr. Orta on 03-29-2022 Albumin [Mass/Vol] 3.9 g/dL 3.2-5.0 [facility] Serum or plasma albumin/glob ulin mass ratioOrdered By: Dr. Orta on 03-29-2022 Albumin/Globulin [Mass ratio] 1.1 {ratio} 0.9-2.4 [facility] Serum or plasma calcium blessing urement (mass/volume)Ordered By: Dr. Orta on 03-29-2022 Calcium [Mass/Vol] 9.4 mg/dL 8.5-10.1 [facility] Serum or plasma creatinine m easurement (mass/volume)Ordered By: Dr. Orta on 03-29-2022 Creatinine [Mass/Vol] 0.75 mg/dL 0.55-1.02 [facility] Comment on above: The validity of the calculated GFR & GFRAA in patients over 70 years has not been determined. Clinical correlation is essential. Serum or plasma urea nitroge n measurement (mass/volume)Ordered By: Dr. Orta on 03-29-2022 Urea nitrogen [Mass/Vol] 21 mg/dL 7-18 [facility] Thin prep Papanicolaou smear with manual screeningOrdered By: Dr. Orta on 03-29-2022 Thin prep Papanicolaou smear with manual screening 21 U/L 15-37 [facility] Thin prep Papanicolaou smear with manual screening 8 5-15 [facility] Absolute lymphocyte counton 01-04-2022 Lymphocytes Auto (Unsp spec) [#/Vol] 1.98 10*3/uL 0.83-4.51 [facility] Work Phone: Basophil percentageon 2021 Basophils/100 WBC (Bld) 0.6 % 0-1 [facility] Work Phone: Bilirubin [Mass/Vol] 0.40 mg/dL 0.20-1.00 [facility] Work Phone: Comment on above: For patients on eltr ombopag therapy, use of Dimension [place] TBIL is not recommended. Chloride [Moles/Vol] 107 mmol/L 98-107 [facility] Work Phone: Eosinophils/100 WBC (Bld) 1.7 % 0-5 [facility] Work Phone: Glucose [Mass/Vol] 89 mg/dL 74-106 [facility] Work Phone: Neutrophils (Bld) [#/Vol] 4.2 10*3/uL 2.0-7.7 [facility] Work Phone: Neutrophils/100 WBC (Bld) 59.8 % 47-70 [facility] Work Phone: Potassium [Moles/Vol] 3.8 mmol/L 3.5-5.1 [facility] Work Phone: Protein [Mass/Vol] 7.2 g/dL 6.4-8.2 [facility] Work Phone: Sodium [Moles/Vol] 140 mmol/L 136-145 [facility] Work Phone: WBC (Bld) [#/Vol] 7.0 10*3/uL 4.4-11.0 [facility] Work Phone: Blood erythrocytes count (nu mber/volume)on 01-04-2022 RBC (Bld) [#/Vol] 4.21 10*6/uL 4.2-5.4 [facility] Work Phone: Blood hemoglobin measurement (mass/volume)on 01-04-2022 Hemoglobin (Bld) [Mass/Vol] 13.0 g/dL 12.0-15.0 [facility] Work Phone: Blood lymphocytes/100 leukoc yteson 01-04-2022 Lymphocytes/100 WBC (Bld) 28.4 % 19-41 [facility] Work Phone: Blood monocytes/100 leukocyt eson 01-04-2022 Monocytes/100 WBC (Bld) 9.2 % 0-10 [facility] Work Phone: Blood platelet mean volumeon 01-04-2022 Platelet mean volume (Bld) [Entitic vol] 11.3 fL 6.2-12.0 [facility] Work Phone: Determination of erythrocyte mean corpuscular volume (MCV)on 01-04-2022 MCV (RBC) [Entitic vol] 93.6 fL 81-99 [facility] Work Phone: Hematocrit Auto (Bld) [Volum e fraction]on 01-04-2022 Hematocrit (Bld) [Volume fraction] 39.4 % 37-47 [facility] Work Phone: Laboratory - Chemistry and C hemistry - challengeon 01-04-2022 ALP [Catalytic activity/Vol] 57 U/L 45-117 [facility] Work Phone: ALT [Catalytic activity/Vol] 24 U/L 13-56 [facility] Work Phone: CO2 [Moles/Vol] 27.0 mmol/L 21.0-32.0 [facility] Work Phone: Globulin (S) [Mass/Vol] 3.6 g/dL 2.2-4.2 [facility] Work Phone: Urea nitrogen/Creatinine [Mass ratio] 17.6 mg/mg 10-20 [facility] Work Phone: Laboratory - Hematology and Cell countson 01-04-2022 Erythrocyte distribution width (RBC) [Entitic vol] 46.8 fL 35.1-43.9 [facility] Work Phone: Erythrocyte distribution width (RBC) [Ratio] 13.8 % 11.6-14.6 [facility] Work Phone: Immature granulocytes/100 WBC (Bld) 0.300 % 0.0-0.9 [facility] Work Phone: Comment on above: IG% - Immature Granu locytes (promyelocytes, myelocytes and metamyelocytes) > 1% indicates that a LEFT SHIFT is Present. MCH (RBC) [Entitic mass] 30.9 pg 27.0-32.0 [facility] Work Phone: Nucleated RBC/100 WBC (Bld) [Ratio] 0 % 0-5 [facility] Work Phone: MCHC Auto (RBC) [Mass/Vol]on 01-04-2022 MCHC (RBC) [Mass/Vol] 33.0 g/dL 32-36 [facility] Work Phone: No Panel Informationon 01-04 Estimated GFR (MDRD) Amer 101 mL/min >60 [facility] Work Phone: Comment on above: GFR Calc Estimated GFR (MDRD) Non-Af Amer 84 mL/min >60 [facility] Work Phone: Comment on above: Non- GFR Calc Platelets bldon 01-04-2022 Platelets (Bld) [#/Vol] 165 10*3/uL 150-450 [facility] Work Phone: Serum or plasma albumin blessing urement (mass/volume)on 01-04-2022 Albumin [Mass/Vol] 3.6 g/dL 3.2-5.0 [facility] Work Phone: Serum or plasma albumin/glob ulin mass ratioon 01-04-2022 Albumin/Globulin [Mass ratio] 1.0 {ratio} 0.9-2.4 [facility] Work Phone: Serum or plasma calcium blessing urement (mass/volume)on 01-04-2022 Calcium [Mass/Vol] 8.7 mg/dL 8.5-10.1 [facility] Work Phone: Serum or plasma creatinine m easurement (mass/volume)on 01-04-2022 Creatinine [Mass/Vol] 0.74 mg/dL 0.55-1.02 [facility] Work Phone: Comment on above: The validity of the calculated GFR & GFRAA in patients over 70 years has not been determined. Clinical correlation is essential. Serum or plasma urea nitroge n measurement (mass/volume)on 01-04-2022 Urea nitrogen [Mass/Vol] 13 mg/dL 7-18 [facility] Work Phone: Thin prep Papanicolaou smear with manual screeningon 01-04-2022 Thin prep Papanicolaou smear with manual screening 18 U/L 15-37 [facility] Work Phone: Thin prep Papanicolaou smear with manual screening 6 5-15 [facility] Work Phone: Laboratory - Chemistry and C hemistry - challengeon 11-25-2021 Free T4 [Mass/Vol] 0.95 ng/dL 0.76-1.46 [facility] Work Phone: No Panel Informationon 11-25 Thyroid Stimulating Hormone (TSH) 0.57 uIU/mL 0.358-3.74 [facility] Work Phone: Vitamin D 25-Hydroxy 86.2 ng/mL [facility] Work Phone: Comment on above: Vitamin D 25(OH) Sta tus Range Deficiency <20 ng/mL (50nmol/L) Insufficiency 20 - 30 ng/mL (50 - 75 nmol/L) Sufficiency 30 - 100 ng/mL (75 - 250 nmol/L) Toxicity >100 ng/mL (>250 nmol/L) Absolute lymphocyte counton 10-02-2021 Lymphocytes Auto (Unsp spec) [#/Vol] 2.22 10*3/uL 0.83-4.51 [facility] Work Phone: Basophil percentageon 2021 Basophils/100 WBC (Bld) 0.6 % 0-1 [facility] Work Phone: Bilirubin [Mass/Vol] 0.30 mg/dL 0.20-1.00 [facility] Work Phone: Comment on above: For patients on eltr ombopag therapy, use of Dimension [place] TBIL is not recommended. Chloride [Moles/Vol] 109 mmol/L 98-[address] [facility] Work Phone: Eosinophils/100 WBC (Bld) 1.3 % 0-5 [facility] Work Phone: Glucose [Mass/Vol] 100 mg/dL 74-106 [facility] Work Phone: Comment on above: Fasting Glucose resu lt from 100 to 125 mg/dL suggests IMPAIRED HOMEOSTASIS per A.D.A. criteria. Neutrophils (Bld) [#/Vol] 3.9 10*3/uL 2.0-7.7 [facility] Work Phone: Neutrophils/100 WBC (Bld) 56.4 % 47-70 [facility] Work Phone: Potassium [Moles/Vol] 4.0 mmol/L 3.5-5.1 [facility] Work Phone: Protein [Mass/Vol] 7.2 g/dL 6.4-8.2 [facility] Work Phone: Sodium [Moles/Vol] 140 mmol/L 136-145 [facility] Work Phone: WBC (Bld) [#/Vol] 6.9 10*3/uL 4.4-11.0 [facility] Work Phone: Blood erythrocytes count (nu mber/volume)on 10-02-2021 RBC (Bld) [#/Vol] 4.21 10*6/uL 4.2-5.4 [facility] Work Phone: Blood hemoglobin measurement (mass/volume)on 10-02-2021 Hemoglobin (Bld) [Mass/Vol] 13.1 g/dL 12.0-15.0 [facility] Work Phone: Blood lymphocytes/100 leukoc yteson 10-02-2021 Lymphocytes/100 WBC (Bld) 32.2 % 19-41 [facility] Work Phone: Blood monocytes/100 leukocyt eson 10-02-2021 Monocytes/100 WBC (Bld) 9.1 % 0-10 [facility] Work Phone: Blood platelet mean volumeon 10-02-2021 Platelet mean volume (Bld) [Entitic vol] 10.7 fL 6.2-12.0 [facility] Work Phone: Determination of erythrocyte mean corpuscular volume (MCV)on 10-02-2021 MCV (RBC) [Entitic vol] 96.4 fL 81-99 [facility] Work Phone: Hematocrit Auto (Bld) [Volum e fraction]on 10-02-2021 Hematocrit (Bld) [Volume fraction] 40.6 % 37-47 [facility] Work Phone: Laboratory - Chemistry and C hemistry - challengeon 10-02-2021 ALP [Catalytic activity/Vol] 59 U/L 45-117 [facility] Work Phone: ALT [Catalytic activity/Vol] 26 U/L 13-56 [facility] Work Phone: CO2 [Moles/Vol] 26.0 mmol/L 21.0-32.0 [facility] Work Phone: Globulin (S) [Mass/Vol] 3.4 g/dL 2.2-4.2 [facility] Work Phone: Urea nitrogen/Creatinine [Mass ratio] 25.5 mg/mg 10-20 [facility] Work Phone: Laboratory - Hematology and Cell countson 10-02-2021 Erythrocyte distribution width (RBC) [Entitic vol] 47.5 fL 35.1-43.9 [facility] Work Phone: Erythrocyte distribution width (RBC) [Ratio] 13.4 % 11.6-14.6 [facility] Work Phone: Immature granulocytes/100 WBC (Bld) 0.400 % 0.0-0.9 [facility] Work Phone: Comment on above: IG% - Immature Granu locytes (promyelocytes, myelocytes and metamyelocytes) > 1% indicates that a LEFT SHIFT is Present. MCH (RBC) [Entitic mass] 31.1 pg 27.0-32.0 [facility] Work Phone: Nucleated RBC/100 WBC (Bld) [Ratio] 0 % 0-5 [facility] Work Phone: MCHC Auto (RBC) [Mass/Vol]on 10-02-2021 MCHC (RBC) [Mass/Vol] 32.3 g/dL 32-36 [facility] Work Phone: No Panel Informationon 10-02 Estimated GFR (MDRD) Amer 94 mL/min >60 [facility] Work Phone: Comment on above: GFR Calc Estimated GFR (MDRD) Non-Af Amer 78 mL/min >60 [facility] Work Phone: Comment on above: Non- GFR Calc Platelets bldon 10-02-2021 Platelets (Bld) [#/Vol] 159 10*3/uL 150-450 [facility] Work Phone: Serum or plasma albumin blessing urement (mass/volume)on 10-02-2021 Albumin [Mass/Vol] 3.8 g/dL 3.2-5.0 [facility] Work Phone: Serum or plasma albumin/glob ulin mass ratioon 10-02-2021 Albumin/Globulin [Mass ratio] 1.1 {ratio} 0.9-2.4 [facility] Work Phone: Serum or plasma calcium blessing urement (mass/volume)on 10-02-2021 Calcium [Mass/Vol] 8.5 mg/dL 8.5-10.1 [facility] Work Phone: Serum or plasma creatinine m easurement (mass/volume)on 10-02-2021 Creatinine [Mass/Vol] 0.78 mg/dL 0.55-1.02 [facility] Work Phone: Comment on above: The validity of the calculated GFR & GFRAA in patients over 70 years has not been determined. Clinical correlation is essential. Serum or plasma urea nitroge n measurement (mass/volume)on 10-02-2021 Urea nitrogen [Mass/Vol] 20 mg/dL 7-18 [facility] Work Phone: Thin prep Papanicolaou smear with manual screeningon 10-02-2021 Thin prep Papanicolaou smear with manual screening 20 U/L 15-37 [facility] Work Phone: Thin prep Papanicolaou smear with manual screening 5 5-15 [facility] Work Phone: Absolute lymphocyte counton 07-03-2021 Lymphocytes Auto (Unsp spec) [#/Vol] 2.30 10*3/uL 0.83-4.51 [facility] Work Phone: Basophil percentageon 2021 Basophils/100 WBC (Bld) 0.6 % 0-1 [facility] Work Phone: Bilirubin [Mass/Vol] 0.30 mg/dL 0.20-1.00 [facility] Work Phone: Comment on above: For patients on eltr ombopag therapy, use of Dim[employer] [place] TBIL is not recommended. Chloride [Moles/Vol] 110 mmol/L 98-107 [facility] Work Phone: Eosinophils/100 WBC (Bld) 2.1 % 0-5 [facility] Work Phone: Glucose [Mass/Vol] 111 mg/dL 74-106 [facility] Work Phone: Comment on above: Fasting Glucose resu lt from 100 to 125 mg/dL suggests IMPAIRED HOMEOSTASIS per A.D.A. criteria. Neutrophils (Bld) [#/Vol] 5.3 10*3/uL 2.0-7.7 [facility] Work Phone: Neutrophils/100 WBC (Bld) 61.4 % 47-70 [facility] Work Phone: Potassium [Moles/Vol] 3.5 mmol/L 3.5-5.1 [facility] Work Phone: Protein [Mass/Vol] 7.1 g/dL 6.4-8.2 [facility] Work Phone: Sodium [Moles/Vol] 142 mmol/L 136-145 [facility] Work Phone: WBC (Bld) [#/Vol] 8.6 10*3/uL 4.4-11.0 [facility] Work Phone: Blood erythrocytes count (nu mber/volume)on 07-03-2021 RBC (Bld) [#/Vol] 4.27 10*6/uL 4.2-5.4 [facility] Work Phone: Blood hemoglobin measurement (mass/volume)on 07-03-2021 Hemoglobin (Bld) [Mass/Vol] 13.4 g/dL 12.0-15.0 [facility] Work Phone: Blood lymphocytes/100 leukoc yteson 07-03-2021 Lymphocytes/100 WBC (Bld) 26.7 % 19-41 [facility] Work Phone: Blood monocytes/100 leukocyt eson 07-03-2021 Monocytes/100 WBC (Bld) 8.9 % 0-10 [facility] Work Phone: Blood platelet mean volumeon 07-03-2021 Platelet mean volume (Bld) [Entitic vol] 10.6 fL 6.2-12.0 [facility] Work Phone: Determination of erythrocyte mean corpuscular volume (MCV)on 07-03-2021 MCV (RBC) [Entitic vol] 95.8 fL 81-99 [facility] Work Phone: Hematocrit Auto (Bld) [Volum e fraction]on 07-03-2021 Hematocrit (Bld) [Volume fraction] 40.9 % 37-47 [facility] Work Phone: Laboratory - Chemistry and C hemistry - challengeon 07-03-2021 ALP [Catalytic activity/Vol] 72 U/L 45-117 [facility] Work Phone: ALT [Catalytic activity/Vol] 23 U/L 13-56 [facility] Work Phone: CO2 [Moles/Vol] 28.0 mmol/L 21.0-32.0 [facility] Work Phone: Globulin (S) [Mass/Vol] 3.5 g/dL 2.2-4.2 [facility] Work Phone: Urea nitrogen/Creatinine [Mass ratio] 24.0 mg/mg 10-20 [facility] Work Phone: Laboratory - Hematology and Cell countson 07-03-2021 Erythrocyte distribution width (RBC) [Entitic vol] 49.5 fL 35.1-43.9 [facility] Work Phone: Erythrocyte distribution width (RBC) [Ratio] 14.3 % 11.6-14.6 [facility] Work Phone: Immature granulocytes/100 WBC (Bld) 0.300 % 0.0-0.9 [facility] Work Phone: Comment on above: IG% - Immature Granu locytes (promyelocytes, myelocytes and metamyelocytes) > 1% indicates that a LEFT SHIFT is Present. MCH (RBC) [Entitic mass] 31.4 pg 27.0-32.0 [facility] Work Phone: Nucleated RBC/100 WBC (Bld) [Ratio] 0 % 0-5 [facility] Work Phone: MCHC Auto (RBC) [Mass/Vol]on 07-03-2021 MCHC (RBC) [Mass/Vol] 32.8 g/dL 32-36 [facility] Work Phone: No Panel Informationon 07-03 Estimated GFR (MDRD) Amer 71 mL/min >60 [facility] Work Phone: Comment on above: GFR Calc Estimated GFR (MDRD) Non-Af Amer 59 mL/min >60 [facility] Work Phone: Comment on above: Non- GFR Calc Platelets bldon 07-03-2021 Platelets (Bld) [#/Vol] 158 10*3/uL 150-450 [facility] Work Phone: Serum or plasma albumin blessing urement (mass/volume)on 07-03-2021 Albumin [Mass/Vol] 3.6 g/dL 3.2-5.0 [facility] Work Phone: Serum or plasma albumin/glob ulin mass ratioon 07-03-2021 Albumin/Globulin [Mass ratio] 1.0 {ratio} 0.9-2.4 [facility] Work Phone: Serum or plasma calcium blessing urement (mass/volume)on 07-03-2021 Calcium [Mass/Vol] 9.2 mg/dL 8.5-10.1 [facility] Work Phone: Serum or plasma creatinine m easurement (mass/volume)on 07-03-2021 Creatinine [Mass/Vol] 1.00 mg/dL 0.55-1.02 [facility] Work Phone: Comment on above: The validity of the calculated GFR & GFRAA in patients over 70 years has not been determined. Clinical correlation is essential. Serum or plasma urea nitroge n measurement (mass/volume)on 07-03-2021 Urea nitrogen [Mass/Vol] 24 mg/dL 7-18 [facility] Work Phone: Thin prep Papanicolaou smear with manual screeningon 07-03-2021 Thin prep Papanicolaou smear with manual screening 16 U/L 15-37 [facility] Work Phone: Thin prep Papanicolaou smear with manual screening 4 5-15 [facility] Work Phone: Office Visit: Med Checkon Documentation of current medications (procedure) Done Invalid Interpretation Code [facility] Fall risk assessment No Invalid Interpretation Code [facility] Tobacco smoking status NHIS Never Invalid Interpretation Code [facility] Tobacco use [facility] Never smoker Invalid Interpretation Code [facility] Office Visit: vaginal painon 10-04-2017 Documentation of current medications (procedure) Done Invalid Interpretation Code [employer] Work Phone: Protein mass conc Done Invalid Interpretation Code [facility] Tobacco smoking status NHIS Never Invalid Interpretation Code [facility] Tobacco smoking status NHIS Never smoker Invalid Interpretation Code [facility] Tobacco use [facility] Never smoker Invalid Interpretation Code [employer] Work Phone: Replaced Document: (P) HSV C ulture Screenon 01-24-2017 GE use only - for [employer] import when terms are not otherwise specified Negative Invalid Interpretation Code . [facility] HSV CULTURE Negative Invalid Interpretation Code . [facility] Lab Report: HSV 1 AND 2 IgGo n 01-21-2017 GE use only - for [employer] import when terms are not otherwise specified < 0.91 index Invalid Interpretation Code 0.00-0.90 [facility] Office Visit: sore on vagina on 01-20-2017 Documentation of current medications (procedure) Done Invalid Interpretation Code [facility] Fall risk assessment No Invalid Interpretation Code [facility] Protein mass conc Done [facility] Tobacco smoking status NHIS Never [facility] Tobacco smoking status NHIS Never smoker [facility] Tobacco use CP Never smoker Invalid Interpretation Code [facility] Lab Report: Basic Metabolic Profile (BMP)on 10-11-2016 Anion gap 11 mmol/L Invalid Interpretation Code 09-20 [employer] Work Phone: Anion gap 4 molar conc 11 Invalid Interpretation Code -15 [facility] Anion gap molar conc 11 mmol/L 5-15 [employer] Work Phone: BUN/Creatinine Ratio 21.5 RATIO High 10-20 [employer] Work Phone: Calcium 8.9 mg/dL Invalid Interpretation Code 8.5-10.1 [employer] Work Phone: Chloride 105 mmol/L Invalid Interpretation Code 98-107 [employer] Work Phone: CO2 27.0 mmol/L Invalid Interpretation Code 21.0-32.0 [employer] Work Phone: CO2 ppres (BldV) 27.0 mmol/L Invalid Interpretation Code 21.0-32.0 [employer] Work Phone: Creatinine 76.60 mL/min Invalid Interpretation Code [employer] Work Phone: Creatinine 0.74 mg/dL Invalid Interpretation Code 0.55-1.02 [employer] Work Phone: eGFR (non-black) 102 mL/min/{1.73_m2} Invalid Interpretation Code >60 [employer] Work Phone: eGFR (non-black) 84 mL/min/{1.73_m2} Invalid Interpretation Code >60 [employer] Work Phone: EST GFR - AA 102 mL/min Invalid Interpretation Code >60 [employer] Work Phone: Glucose 100 mg/dL Invalid Interpretation Code 70-110 [employer] Work Phone: Glucose mass conc 100 mg/dL Invalid Interpretation Code 70-110 [employer] Work Phone: Potassium 3.8 mmol/L Invalid Interpretation Code 3.5-5.1 [employer] Work Phone: Sodium 143 mmol/L Invalid Interpretation Code 136-145 [employer] Work Phone: Urea nitrogen 16 mg/dL Invalid Interpretation Code 7-18 [employer] Work Phone: Lab Report: CBC-Complete Blo od Cnt No Diffon 10-11-2016 Erythrocyte distribution width Auto Ratio (RBC) 44.4 fL High 35.1-43.9 [facility] Erythrocyte distribution width Ratio (RBC) 44.4 fL High 35.1-43.9 [employer] Work Phone: Erythrocyte distribution width Ratio (RBC) 13.6 % 11.6-14.6 [employer] Work Phone: Erythrocytes (RBC) 4.48 10*6/uL Invalid Interpretation Code 4.2-5.4 [employer] Work Phone: Hematocrit (HCT) 40.5 % Invalid Interpretation Code 37-47 [facility] Work Phone: Hematocrit Volume Fraction (Bld) 40.5 % 37-47 [facility] Work Phone: Hemoglobin (HGB) 13.6 g/dL Invalid Interpretation Code 12.0-15.0 [facility] Work Phone: MCH 30.4 pg Invalid Interpretation Code 27.0-32.0 [facility] Work Phone: MCH Entitic mass (RBC) 30.4 pg 27.0-32.0 [facility] Work Phone: MCHC 33.6 G/GL Invalid Interpretation Code 32-36 [facility] Work Phone: MCHC mass conc (RBC) 33.6 G/GL 32-[address] [facility] Work Phone: MCV 90.4 fL Invalid Interpretation Code 81-99 [facility] Work Phone: MCV Entitic volume (RBC) 90.4 fL 81-99 [facility] Work Phone: Platelet mean volume Entitic volume (Bld) 10.7 fL 6.2-12.0 [facility] Work Phone: Platelets 182 10*3/mm3 Invalid Interpretation Code 150-450 [facility] Work Phone: Platelets #/vol (Bld) 182 10*3/mm3 150-450 [facility] Work Phone: PMV by Baldomero 10.7 fL Invalid Interpretation Code 6.2-12.0 [facility] Work Phone: RBC #/vol (Bld) 4.48 10*6/uL 4.2-5.4 [facility] Work Phone: RDW SD 44.4 fL High 35.1-43.9 [facility] Work Phone: RDW-CA 13.6 % Invalid Interpretation Code 11.6-14.6 [facility] Work Phone: red blood cell distribution width, size density 44.4 fL High 35.1-43.9 [facility] Work Phone: WBC #/vol (Bld) 5.7 10*3/uL 4.4-11.0 [facility] Work Phone: WBC (Leukocytes) 5.7 10*3/uL Invalid Interpretation Code 4.4-11.0 [facility] Work Phone: Lab Report: Basic Metabolic Profile (BMP)on 09-22-2016 Anion gap 8 mmol/L Invalid Interpretation Code - [facility] Work Phone: Anion gap [Moles/Vol] 8 mmol/L 5- [facility] Work Phone: Calcium [Mass/Vol] 8.8 mg/dL 8.5-10.1 [facility] Work Phone: Chloride [Moles/Vol] 110 mmol/L High 98-[address] [facility] Work Phone: CO2 27.0 mmol/L Invalid Interpretation Code 21.0-32.0 [facility] Work Phone: CO2 (BldV) [Partial pressure] 27.0 mmol/L 21.0-32.0 [facility] Work Phone: Creatinine [Mass/Vol] 0.71 mg/dL 0.55-1.02 [facility] Work Phone: eGFR (non-black) 107 mL/min/{1.73_m2} Invalid Interpretation Code >60 [facility] Work Phone: EST GFR - [...] width (RBC) [Ratio] 44.2 fL High 35.1-43.9 [facility] Work Phone: Erythrocyte distribution width (RBC) [Ratio] 13.5 % 11.6-14.6 [facility] Work Phone: Erythrocytes (RBC) 4.48 10*6/uL Invalid Interpretation Code 4.2-5.4 [facility] Work Phone: Hematocrit (Bld) [Volume fraction] 40.4 % 37-47 [facility] Work Phone: Hematocrit (HCT) 40.4 % Invalid Interpretation Code 37-47 [facility] Work Phone: Hemoglobin (Bld) [Mass/Vol] 13.4 g/dL 12.0-15.0 [facility] Work Phone: MCH 29.9 pg Invalid Interpretation Code 27.0-32.0 [facility] Work Phone: MCH (RBC) [Entitic mass] 29.9 pg 27.0-32.0 [facility] Work Phone: MCHC 33.2 G/GL Invalid Interpretation Code 32-36 [facility] Work Phone: MCHC (RBC) [Mass/Vol] 33.2 G/GL 32-36 [facility] Work Phone: MCV 90.2 fL Invalid Interpretation Code 81-99 [facility] Work Phone: MCV (RBC) [Entitic vol] 90.2 fL 81-99 [facility] Work Phone: Platelet mean volume (Bld) [Entitic vol] 11.3 fL 6.2-12.0 [facility] Work Phone: Platelets 172 10*3/mm3 Invalid Interpretation Code 150-450 [facility] Work Phone: Platelets (Bld) [#/Vol] 172 10*3/mm3 150-450 [facility] Work Phone: PMV by Baldomero 11.3 fL Invalid Interpretation Code 6.2-12.0 [facility] Work Phone: RBC (Bld) [#/Vol] 4.48 10*6/uL 4.2-5.4 [facility] Work Phone: RDW-CA 13.5 % Invalid Interpretation Code 11.6-14.6 [facility] Work Phone: red blood cell distribution width, size density 44.2 fL High 35.1-43.9 [facility] Work Phone: WBC (Bld) [#/Vol] 6.1 10*3/uL 4.4-11.0 [facility] Work Phone: WBC (Leukocytes) 6.1 10*3/uL Invalid Interpretation Code 4.4-11.0 [facility] Work Phone: Office Visiton 09-22-2016 Documentation of current medications (procedure) Done Invalid Interpretation Code [facility] Work Phone: Fall risk assessment No Invalid Interpretation Code [facility] Work Phone: Protein mass conc Done [facility] Work Phone: Replaced Document: [place] E CG Observationson 09-22-2016 EKG QRS axis 56 deg Invalid Interpretation Code [facility] Work Phone: electrocardiogram interpretation 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 - Nonspecific T-abnormality. 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 - Nonspecific T-abnormality. ABNORMAL Invalid Interpretation Code [employer] Phone: P Nelson 48 deg Invalid Interpretation Code [facility] Work Phone: P wave axis, electrocardiogram 48 deg Invalid Interpretation Code [facility] Phone: TN Interval 198 ms Invalid Interpretation Code [facility] Phone: TN interval, electrocardiogram 198 ms Invalid Interpretation Code [facility] Phone: Pulse (Heart Rate) 76 /min Invalid Interpretation Code [facility] Phone: QRS axis, electrocardiogram 56 deg Invalid Interpretation Code [facility] Phone: QRS Duration 86 ms Invalid Interpretation Code [facility] Phone: QRS duration, electrocardiogram 86 ms Invalid Interpretation Code [facility] Phone: QT Interval new path ms Invalid Interpretation Code [facility] Phone: QT interval, electrocardiogram new path ms Invalid Interpretation Code [facility] Phone: QTc Flores 392 ms [facility] Work Phone: T Nelson -1 deg Invalid Interpretation Code [facility] Phone: T wave axis, electrocardiogram -1 deg Invalid Interpretation Code [facility] Phone: Office Visit: sore on vagina on 08-08-2016 Breast Mammogram screening Normal Bilateral Invalid Interpretation Code [facility] General categories [Interpretation] of Cervical or vaginal smear or scraping by Cyto stain Normal Invalid Interpretation Code [facility] Lab Report: Basic Metabolic Profile (BMP)on 04-15-2016 Anion gap [Moles/Vol] 6 mmol/L 5-15 [facility] Work Phone: Calcium [Mass/Vol] 9.2 mg/dL 8.5-10.1 [facility] Work Phone: Chloride [Moles/Vol] 106 mmol/L 98-[address] [facility] Work Phone: CO2 (BldV) [Partial pressure] 30.0 mmol/L 21.0-32.0 [facility] Work Phone: Creatinine [Mass/Vol] 0.81 mg/dL 0.55-1.02 [facility] Work Phone: EST GFR - AA 92 mL/min >60 [facility] Work Phone: GFR/1.73 sq M predicted among non-blacks MDRD (S/P/Bld) [Vol rate/Area] 76 mL/min/{1.73_m2} >60 [facility] Work Phone: Glucose [Mass/Vol] 123 mg/dL High 70-110 [facility] Work Phone: Potassium [Moles/Vol] 3.6 mmol/L 3.5-5.1 [facility] Work Phone: Sodium [Moles/Vol] 142 mmol/L 136-145 [facility] Work Phone: Urea nitrogen [Mass/Vol] 16 mg/dL 7-18 [facility] Work Phone: Urea nitrogen/Creatinine [Mass ratio] 19.7 RATIO 10-20 [facility] Work Phone: Lab Report: CBC-Complete Blo od Cnt No Diffon 04-15-2016 Erythrocyte distribution width (RBC) [Ratio] 44.2 fL High 35.1-43.9 [facility] Work Phone: Erythrocyte distribution width (RBC) [Ratio] 13.5 % 11.6-14.6 [facility] Work Phone: Hematocrit (Bld) [Volume fraction] 42.1 % 37-47 [facility] Work Phone: Hemoglobin (Bld) [Mass/Vol] 13.9 g/dL 12.0-15.0 [facility] Work Phone: MCH (RBC) [Entitic mass] 30.2 pg 27.0-32.0 [facility] Work Phone: MCHC (RBC) [Mass/Vol] 33.0 G/GL 32-36 [facility] Work Phone: MCV (RBC) [Entitic vol] 91.3 fL 81-99 [facility] Work Phone: Platelet mean volume (Bld) [Entitic vol] 11.3 fL 6.2-12.0 [facility] Work Phone: Platelets (Bld) [#/Vol] 148 10*3/mm3 Low 150-450 [facility] Work Phone: RBC (Bld) [#/Vol] 4.61 10*6/uL 4.2-5.4 [facility] Work Phone: WBC (Bld) [#/Vol] 7.4 10*3/uL 4.4-11.0 [facility] Work Phone: Lab Report: Prothrombin Time w/INRon 04-15-2016 INR Coag (PPP) [Relative time] 1.0 {INR} Invalid Interpretation Code [facility] Work Phone: INR in blood by coagulation 1.0 {INR} Invalid Interpretation Code [facility] Work Phone: PT Coag (PPP) [Time] 13 s Invalid Interpretation Code 11.7-14.9 [facility] Work Phone: Lab Report: Urinalysis, Rout ine (Dipstick)on 04-15-2016 Albumin Ql (U) 15 High Negative [facility] Work Phone: Bilirubin Ql (U) Negative Invalid Interpretation Code Negative [facility] Work Phone: Clarity (U) Sl. Cloudy Invalid Interpretation Code Clear [facility] Work Phone: Color (U) Yellow Invalid Interpretation Code Yellow [facility] Work Phone: Glucose Ql (U) Normal mg/dl Invalid Interpretation Code Normal [facility] Work Phone: Ketones (U) [Mass/Vol] 5 High Negative [facility] Work Phone: Leukocyte esterase Test strip Ql (U) 500 High Negative [facility] Work Phone: NITRITE UR Negative Invalid Interpretation Code Negative [facility] Work Phone: Nitrite Urine Negative Invalid Interpretation Code Negative [facility] Work Phone: Occult Blood, urine Negative Invalid Interpretation Code Negative [facility] Work Phone: OCCULT BLOOD-UR Negative Invalid Interpretation Code Negative [facility] Work Phone: pH (U) 5.0 [pH] 5.0 - 8.0 [facility] Work Phone: Specific gravity Refractometry (U) [Rel density] 1.025 Invalid Interpretation Code 1.002-1.030 [facility] Work Phone: Urine, bilirubin presence Negative Invalid Interpretation Code Negative [facility] Work Phone: Urine, ketones presence 5 High Negative [facility] Work Phone: Urine, pH 5.0 [pH] Invalid Interpretation Code 5.0 - 8.0 [facility] Work Phone: Urine, protein 15 mg/dL High Negative [facility] Work Phone: UROBILI Normal mg/dl Invalid Interpretation Code Normal [facility] Work Phone: urobilinogen, urine, by dipstick Normal mg/dl Invalid Interpretation Code Normal [facility] Work Phone: Office Visiton 04-15-2016 Tobacco smoking status NHIS Never smoker [facility] Work Phone: Tobacco use CPHS Never smoker Invalid Interpretation Code [facility] Work Phone: External Other: Preferred Me thod of Contacton 07-29-2015 methcontact phone Invalid Interpretation Code [facility] Work Phone: Patient's prefered method of contact phone Invalid Interpretation Code [facility] Work Phone: Office Visiton 05-01-2014 cardiac risk group B Invalid Interpretation Code [facility] Work Phone: General cardiovascular disease 10Y risk [#] [place]ost[place] Not enough information Invalid Interpretation Code [facility] Work Phone: Replaced Document: [facility] E CG Observationson 03-16-2012 Pulse (Heart Rate) 413 ms Invalid Interpretation Code [facility] Work Phone: Vital Signs Date Time Vital Sign Value Performing Clinician Faci lity 03-01-2025 08:42-0400 Body height 170.[address] Melba Young MD Work Phone: [facility] 03-01-2025 08:42-0400 Body mass index (BMI) [Ratio] 19.7 kg/m2 Dr. Melba Young MD Work Phone: [facility] 03-01-2025 08:42-0400 Body temperature 96.8 [degF] Dr. Melba Young MD Work Phone: [facility] 03-01-2025 08:42-0400 Body weight 57.[address] Melba Young MD Work Phone: [facility] 03-01-2025 08:42-0400 Diastolic blood pressure 88 mm[Hg] Dr. Melba Young MD Work Phone: [facility] 03-01-2025 08:42-0400 Heart rate 92 /min Dr. Melba Young MD Work Phone: [facility] 03-01-2025 08:42-0400 Respiratory rate 18 /min Dr. Melba Young MD Work Phone: [facility] 03-01-2025 08:42-0400 SaO2% (BldA) [Mass fraction] 98 % Dr. Melba Young MD Work Phone: [facility] 03-01-2025 08:42-0400 Systolic blood pressure 128 mm[Hg] Dr. Melba Young MD Work Phone: [facility] 01-16-2025 10:41-0400 Body height 170.[address] Melba Young MD Work Phone: [facility] 01-16-2025 10:41-0400 Body mass index (BMI) [Ratio] 19.7 kg/m2 Dr. Melba Young MD Work Phone: [facility] 01-16-2025 10:41-0400 Body weight 57.[address] Melba Young MD Work Phone: [facility] 01-16-2025 10:41-0400 Diastolic blood pressure 68 mm[Hg] Dr. Melba Young MD Work Phone: [facility] 01-16-2025 10:41-0400 Heart rate 54 /min Dr. Melba Young MD Work Phone: [facility] 01-16-2025 10:41-0400 Respiratory rate 16 /min Dr. Melba Young MD Work Phone: [facility] 01-16-2025 10:41-0400 Systolic blood pressure 131 mm[Hg] Dr. Melba Young MD Work Phone: [facility] 10-24-2024 11:02-0400 Body height 170.[address] Melba Young MD Work Phone: [facility] 10-24-2024 11:02-0400 Body mass index (BMI) [Ratio] 19.3 kg/m2 Dr. Melba Young MD Work Phone: [facility] 10-24-2024 11:02-0400 Body temperature 97.3 [degF] Dr. Melba Young MD Work Phone: [facility] 10-24-2024 11:02-0400 Body weight 55.[address] Melba Young MD Work Phone: [facility] 10-24-2024 11:02-0400 Diastolic blood pressure 78 mm[Hg] Dr. Melba Young MD Work Phone: [facility] 10-24-2024 11:02-0400 Heart rate 83 /min Dr. Melba Young MD Work Phone: [facility] 10-24-2024 11:02-0400 Respiratory rate 18 /min Dr. Melba Young MD Work Phone: [facility] 10-24-2024 11:02-0400 SaO2% (BldA) [Mass fraction] 98 % Dr. Melba Young MD Work Phone: [facility] 10-24-2024 11:02-0400 Systolic blood pressure 142 mm[Hg] Dr. Melba Young MD Work Phone: [facility] 06-27-2024 16:31-0500 Body mass index (BMI) [Ratio] 19.16 kg/m2 Krislyn Aberegg PA Work Phone: [facility] 06-27-2024 16:31-0500 Body temperature 97.59 [degF] Krislyn Aberegg PA Work Phone: [facility] 06-27-2024 16:31-0500 Body weight 55.5 kg Krislyn Aberegg PA Work Phone: [facility] 06-27-2024 16:31-0500 Diastolic blood pressure 82 mm[Hg] Krislyn Aberegg PA Work Phone: [facility] 06-27-2024 16:31-0500 Heart rate 70 /min Krislyn Aberegg PA Work Phone: [facility] 06-27-2024 16:31-0500 Respiratory rate 18 /min Krislyn Aberegg PA Work Phone: [facility] 06-27-2024 16:31-0500 SaO2% (BldA) [Mass fraction] 98 % Krislyn Aberegg PA Work Phone: [facility] 06-27-2024 16:31-0500 Systolic blood pressure 138 mm[Hg] Krislyn Aberegg PA Work Phone: [facility] 04-23-2024 11:06-0500 Body height 170.[address] Melba Young MD Work Phone: [facility] 04-23-2024 11:06-0500 Body mass index (BMI) [Ratio] 19.7 kg/m2 Dr. Melba Young MD Work Phone: [facility] 04-23-2024 11:06-0500 Body temperature 97.9 [degF] Dr. Melba Young MD Work Phone: [facility] 04-23-2024 11:06-0500 Body weight 57.[address] Melba Young MD Work Phone: [facility] 04-23-2024 11:06-0500 Diastolic blood pressure 62 mm[Hg] Dr. Melba Young MD Work Phone: [facility] 04-23-2024 11:06-0500 Heart rate 51 /min Dr. Melba Young MD Work Phone: [facility] 04-23-2024 11:06-0500 Respiratory rate 14 /min Dr. Melba Young MD Work Phone: [facility] 04-23-2024 11:06-0500 SaO2% (BldA) [Mass fraction] 99 % Dr. Melba Young MD Work Phone: [facility] 04-23-2024 11:06-0500 Systolic blood pressure 110 mm[Hg] Dr. Melba Young MD Work Phone: [facility] 03-15-2024 09:06-0500 Body mass index (BMI) [Ratio] 19.89 kg/m2 Ines Athy PA-C Work Phone: [facility] 03-15-2024 09:06-0500 Body temperature 97.59 [degF] Ines Athy PA-C Work Phone: [facility] 03-15-2024 09:06-0500 Body weight 57.6 kg Ines Athy PA-C Work Phone: [facility] 03-15-2024 09:06-0500 Diastolic blood pressure 84 mm[Hg] Ines Athy PA-C Work Phone: [facility] 03-15-2024 09:06-0500 Heart rate 82 /min Ines Athy PA-C Work Phone: [facility] 03-15-2024 09:06-0500 Respiratory rate 20 /min Ines Athy PA-C Work Phone: [facility] 03-15-2024 09:06-0500 SaO2% (BldA) [Mass fraction] 99 % Ines Athy PA-C Work Phone: [facility] 03-15-2024 09:06-0500 Systolic blood pressure 150 mm[Hg] Ines Athy PA-C Work Phone: [facility] 01-14-2023 14:23-0400 Body height 170.[address] Melba Young Work Phone: [facility] 01-14-2023 14:23-0400 Body mass index (BMI) [Ratio] 20.9 kg/m2 Dr. Melba Young Work Phone: [facility] 01-14-2023 14:23-0400 Body weight 60.[address] Melba Young Work Phone: [facility] 01-14-2023 14:23-0400 Diastolic blood pressure 62 mm[Hg] Dr. Melba Young Work Phone: [facility] 01-14-2023 14:23-0400 Heart rate 80 /min Dr. Melba Young Work Phone: [facility] 01-14-2023 14:23-0400 Respiratory rate 16 /min Dr. Melba Young Work Phone: [facility] 01-14-2023 14:23-0400 Systolic blood pressure 121 mm[Hg] Dr. Melba Young Work Phone: [facility] 11-22-2022 15:05-0400 Body height 170.[address] Melba Young Work Phone: [facility] 11-22-2022 15:05-0400 Body mass index (BMI) [Ratio] 20.8 kg/m2 Dr. Melba Young Work Phone: [facility] 11-22-2022 15:05-0400 Body temperature 99 [degF] Dr. Melba Young Work Phone: [facility] 11-22-2022 15:05-0400 Body weight 60.[address] Melba Young Work Phone: [facility] 11-22-2022 15:05-0400 Diastolic blood pressure 80 mm[Hg] Dr. Melba Young Work Phone: [facility] 11-22-2022 15:05-0400 Heart rate 64 /min Dr. Melba Young Work Phone: [facility] 11-22-2022 15:05-0400 Respiratory rate 16 /min Dr. Melba Young Work Phone: [facility] 11-22-2022 15:05-0400 SaO2% (BldA) [Mass fraction] 98 % Dr. Melba Young Work Phone: [facility] 11-22-2022 15:05-0400 Systolic blood pressure 122 mm[Hg] Dr. Melba Young Work Phone: [facility] 08-03-2022 13:32-0400 Body height 170.[address] Melba Young Work Phone: [facility] 05-31-2022 13:04-0500 Body height 170.[address] Melba Young Work Phone: [facility] 05-31-2022 13:04-0500 Body mass index (BMI) [Ratio] 21.1 kg/m2 Dr. Melba Young Work Phone: [facility] 05-31-2022 13:04-0500 Body temperature 97.7 [degF] Dr. Melba Young Work Phone: [facility] 05-31-2022 13:04-0500 Body weight 61.[address] Melba Young Work Phone: [facility] 05-31-2022 13:04-0500 Diastolic blood pressure 82 mm[Hg] Dr. Melba Young Work Phone: [facility] 05-31-2022 13:04-0500 Heart rate 76 /min Dr. Melba Young Work Phone: [facility] 05-31-2022 13:04-0500 Respiratory rate 14 /min Dr. Melba Young Work Phone: [facility] 05-31-2022 13:04-0500 SaO2% (BldA) [Mass fraction] 97 % Dr. Melba Young Work Phone: [facility] 05-31-2022 13:04-0500 Systolic blood pressure 134 mm[Hg] Dr. Melba Young Work Phone: [facility] 11-25-2021 09:33-0400 Body height 170.[address] Melba Young Work Phone: [facility] Work Phone: 11-25-2021 09:33-0400 Body mass index (BMI) [Ratio] 20.9 kg/m2 Dr. Melba Young Work Phone: [facility] Work Phone: 11-25-2021 09:33-0400 Body temperature 97.4 [degF] Dr. Melba Young Work Phone: [facility] Work Phone: 11-25-2021 09:33-0400 Body weight 60.[address] Melba Young Work Phone: [facility] Work Phone: 11-25-2021 09:33-0400 Diastolic blood pressure 64 mm[Hg] Dr. Melba Young Work Phone: [facility] Work Phone: 11-25-2021 09:33-0400 Heart rate 80 /min Dr. Melba Young Work Phone: [facility] Work Phone: 11-25-2021 09:33-0400 Respiratory rate 16 /min Dr. Melba Young Work Phone: [facility] Work Phone: 11-25-2021 09:33-0400 SaO2% (BldA) [Mass fraction] 99 % Dr. Melba Young Work Phone: [facility] Work Phone: 11-25-2021 09:33-0400 Systolic blood pressure 114 mm[Hg] Dr. Melba Young Work Phone: [facility] Work Phone: 03-09-2017 14:20-0400 BMI (Body Mass Index) 22.14 kg/m2 Zo Valdez NP [facility] 03-09-2017 14:20-0400 Body Temperature 97.1 [degF] Zo Valdez [employer] [facility] 03-09-2017 14:20-0400 Body Temperature 97.11 [degF] Zo Valdez [employer] [facility] 03-09-2017 14:20-0400 BP Diastolic 76 mm[Hg] Zo Valdez [employer] [facility] 03-09-2017 14:20-0400 BP Systolic 126 mm[Hg] Zo Valdez [employer] [facility] 03-09-2017 14:20-0400 Height 170.18 cm Zo Valdez [employer] [facility] 03-09-2017 14:20-0400 Pulse (Heart Rate) 75 /min Zo Valdez [employer] [facility] 03-09-2017 14:20-0400 Respiratory Rate 16 /min Zo Valdez [employer] [facility] 03-09-2017 14:20-0400 Weight 64.14 kg Zo Valdez [employer] [facility] 02-09-2017 14:19-0400 BMI (Body Mass Index) 21.71 kg/m2 Zo Valdez [employer] [facility] 02-09-2017 14:19-0400 Body Temperature 98.2 [degF] Zo Valdez [employer] [facility] 02-09-2017 14:19-0400 BP Diastolic 72 mm[Hg] Zo Valdez [employer] [facility] 02-09-2017 14:19-0400 BP Systolic 127 mm[Hg] Zo Valdez [employer] [facility] 02-09-2017 14:19-0400 Height 170.18 cm Zo Valdez [employer] [facility] 02-09-2017 14:19-0400 Pulse (Heart Rate) 88 /min Zo Valdez NP [facility] 02-09-2017 14:19-0400 Weight 62.87 kg Zo Valdez NP [facility] 01-20-2017 10:49-0400 BMI (Body Mass Index) 21.8 kg/m2 Lauren Camacho MD [facility] 01-20-2017 10:49-0400 Body Temperature 97.5 [degF] Lauren Camacho MD [facility] 01-20-2017 10:49-0400 BP Diastolic 72 mm[Hg] Lauren Camacho MD [facility] 01-20-2017 10:49-0400 BP Systolic 160 mm[Hg] Lauren Camacho MD [facility] 01-20-2017 10:49-0400 Height 170.18 cm Lauren Camacho MD [facility] 01-20-2017 10:49-0400 Pulse (Heart Rate) 73 /min Lauren Camacho MD [facility] 01-20-2017 10:49-0400 Respiratory Rate 16 /min Lauren Camacho MD [facility] 01-20-2017 10:49-0400 Weight 63.14 kg Lauren Camacho MD [facility] 10-11-2016 09:36-0400 Body surface area Derived from formula 76.60 mL/min Korin Young RN [facility] Work Phone: 09-22-2016 14:33-0400 BMI (Body Mass Index) 20.99 kg/m2 Barrett Biswas MD [facility] Work Phone: 09-22-2016 14:33-0400 Body weight 60.78 kg Korin Young RN [facility] Work Phone: 09-22-2016 14:33-0400 BP [...] Phone: 03-16-2012 14:48-0500 Heart rate 413 ms Barrett Biswas MD [facility] Work Phone: 03-16-2012 14:24-0500 Height 170.18 cm Barrett Biswas MD [facility] Work Phone: Encounters Encounter Date Encounter Type Care Provider Facility Start: 03-01-2025 ambulatory [facility] ty:[facility] Start: 03-01-2025 End: 03-01-2025 ambulatory [facility] [place] Start: 02-21-2025 End: 02-21-2025 Patient encounter procedure Elena RICHARDSON [facility] Work Phone: Start: 02-21-2025 End: 02-21-2025 ambulatory [facility] [place] Start: 02-15-[address] Stephanie Orta MD -[facility] Work Phone: Start: 02-14-2025 End: 02-15-2025 ambulatory Stephanie Orta Facility:[facility] Start: 02-14-2025 Non-patient / Non-visit Dr. Ju MARRUFO -[facility] Start: 02-14-2025 End: 02-14-2025 Patient encounter procedure Karolina Blanc PA -[facility] Work Phone: Start: 02-14-2025 End: 02-14-2025 ambulatory [facility] Facility:[facility] Start: 02-01-2025 End: 02-01-[address] Melba Young MD Work Phone: [facility] Start: 02-01-2025 End: 02-01-[address] Barrett Biswas MD -[facility] Work Phone: Start: 01-16-2025 End: 01-16-[address] Melba Young MD Work Phone: -[facility] Start: 01-16-2025 End: 01-16-[address] Barrett Biswas MD -[facility] Work Phone: Start: 01-16-2025 End: 01-16-2025 Patient encounter procedure Karolina lBanc [place] -[facility] Work Phone: Start: 01-16-2025 End: 01-16-[address] Melba Young MD Work Phone: -[facility] Start: 11-23-2024 End: 11-23-[address] Melba Young MD Work Phone: -[facility] Start: 11-23-2024 End: 11-23-[address] Stephanie Orta MD -[facility] Work Phone: Start: 11-23-2024 End: 11-23-2024 ambulatory Stephanie Orta Facility:[facility] Start: 11-02-2024 End: 11-02-[address] Melba Young MD Work Phone: -[facility] Start: 11-02-2024 End: 11-02-[address] Barrett Biswas MD -[facility] Work Phone: Start: 10-24-2024 End: 10-24-[address] Melba Young MD -[facility] Work Phone: Start: 10-24-2024 End: 10-24-[address] Melba Young MD Work Phone: [facility] Work Phone: Start: 10-17-2024 End: 10-17-[address] Melba Young MD Work Phone: [facility] Work Phone: Start: 10-17-2024 End: 10-17-[address] Melba Young MD -Outpatient [facility] Work Phone: Start: 10-17-2024 End: 10-17-2024 ambulatory [facility] Facility:[facility] Start: 08-27-2024 End: 08-27-[address] Stephanie Orta MD -[facility] Work Phone: Start: 08-27-2024 End: 08-27-2024 ambulatory [facility] Facility:[facility] Start: 08-22-2024 End: 08-22-[address] Melba Young MD Work Phone: [facility] Work Phone: Start: 08-22-2024 End: 08-22-[address] Stephanie Orta MD -[facility], [facility] [facility] Work Phone: Start: 08-22-2024 End: 08-22-2024 ambulatory [facility] Facility:[facility] Start: 08-03-2024 End: 08-03-2024 ambulatory Barrett True Facility:[facility] Start: 08-03-2024 End: 08-03-[address] Barrett Biswas MD -[facility] Work Phone: Start: 07-31-2024 End: 07-31-[address] Melba Young MD Work Phone: [facility] Work Phone: Start: 07-31-2024 End: 07-31-[address] Stephanie Orta MD -Laboratory, [place] Work Phone: Start: 07-31-2024 End: 07-31-2024 ambulatory [facility] Facility:[facility] Start: 06-30-2024 End: 06-30-2024 Follow-up encounter Bhupendra GAONA Work Phone: [facility] Start: 06-27-2024 End: 06-27-2024 Patient encounter procedure Bhupendra GAONA Work Phone: [facility] Comment on above: Acute UTI (Primary D x); Burning with urination Start: 06-27-2024 End: 06-27-2024 ambulatory MELBA YOUNG Facility:[facility] Start: 05-07-2024 End: 05-07-[address] Stephanie Orta MD -[facility] Work Phone: Start: 05-07-2024 End: 05-07-2024 ambulatory Stephanie Orta Facility:[facility] Start: 05-04-2024 End: 05-04-2024 ambulatory [facility] Facility[facility] Start: 05-04-2024 End: 05-04-[address] Barrett Biswas MD -[facility] Work Phone: Start: 04-23-2024 End: 04-23-[address] Melba Young MD -[facility] Work Phone: Start: 04-23-2024 End: 04-23-2024 ambulatory Melba Young Facility[facility] Start: 03-15-2024 End: 03-15-2024 [facility] Start: 03-15-2024 End: 03-15-2024 Patient encounter procedure Ines Arcos PA-C Work Phone: [facility] Comment on above: Acute UTI (Primary D x) Start: 03-13-2024 End: 03-13-2024 ambulatory FILLMORE NURSE Facility:[facility] Start: 08-19-2023 End: 08-19-[address] Melba Young Work Phone: [facility] Work Phone: Start: 08-19-2023 End: 08-19-[address] Melba Young Work Phone: [facility] Work Phone: Start: 08-05-2023 End: 08-05-[address] Melba Young Work Phone: [facility] Work Phone: Start: 05-25-2023 End: 05-25-[address] Melba Young Work Phone: [facility] Work Phone: Start: 05-25-2023 End: 05-25-[address] Melba Young Work Phone: [facility] Work Phone: Start: 05-06-2023 End: 05-06-[address] Melba Young Work Phone: [facility] Work Phone: Start: 03-14-2023 End: 03-14-[address] Melba Young Work Phone: [facility] Work Phone: Start: 02-18-2023 End: 02-18-[address] Melba Young Work Phone: [facility] Work Phone: Start: 02-18-2023 End: 02-18-[address] Melba Young Work Phone: [facility] Work Phone: Start: 02-04-2023 End: 02-04-[address] Melba Young Work Phone: [facility] Work Phone: Start: 01-14-2023 End: 01-14-[address] Melba Young Work Phone: [facility] Work Phone: Start: 12-01-2022 Non-patient / Non-visit Dr. Kavon Young Work Phone: [facility] Start: 12-01-2022 End: 12-01-[address] Melba Young Work Phone: [facility] Work Phone: Start: 12-01-2022 End: 12-01-[address] [facility] Work [facility]: Start: 11-30-2022 End: 11-30-[address] Melba Young Work Phone: [facility] Work Phone: Start: 11-22-2022 End: 11-22-2022 Encounter for general adult medical examination without abnormal findings Dr. Melba Young Work Phone: [facility] Start: 11-22-2022 End: 11-22-[address] Melba Young Work Phone: [facility] Work Phone: Start: 10-27-2022 End: 10-27-[address] Melba Young Work Phone: [facility] Work Phone: Start: 09-02-2022 End: 09-02-[address] Melba Young Work Phone: [facility] Work Phone: Start: 09-02-2022 End: 09-02-[address] Melba Young Work Phone: [facility] Start: 08-03-2022 End: 08-03-[address] Melba Young Work Phone: [facility] Work Phone: Start: 08-03-2022 End: 08-03-[address] Melba Young Work Phone: [facility]-Outpatient Bone Densitometry Start: 07-17-2022 End: 07-17-[address] Melba Young Work Phone: [facility] Start: 06-18-2022 End: 06-18-[address] Melba Young Work Phone: [facility] Work Phone: Start: 06-18-2022 End: 06-18-[address] Melba Young Work Phone: [facility] Start: 05-31-[address] Melba Young Work Phone: [facility] Start: 05-31-2022 End: 05-31-2022 Encounter for general adult medical examination without abnormal findings Dr. Melba Young Work Phone: [facility] Start: 05-31-2022 End: 05-31-[address] Melba Young Work Phone: [facility] Start: 04-16-2022 End: 04-16-[address] Melba Young Work Phone: [facility] Start: 03-29-2022 End: 03-29-[address] Melba Young Work Phone: [facility] Start: 02-08-2022 End: 02-08-[address] Melba Young Work Phone: [facility] Work Phone: Start: 02-08-2022 End: 02-08-[address] Melba Young Work Phone: [facility]-Outpatient Breast Imaging Start: 01-04-2022 End: 01-04-[address] Melba Young Work Phone: [facility] Work Phone: Start: 01-04-2022 End: 01-04-[address] Melba Young Work Phone: [facility] Start: 12-30-2021 End: 12-30-[address] Melba Young Work Phone: [facility] Start: 11-25-2021 End: 11-25-[address] Melba Young Work Phone: [facility] Start: 10-02-2021 End: 10-02-[address] Melba Young Work Phone: [facility] Start: 09-23-2021 End: 09-23-[address] Melba Young Work Phone: [facility] Start: 07-03-2021 End: 07-03-[address] Melba Young Work Phone: [facility] Start: 06-17-2021 End: 06-17-[address] Melba Young Work Phone: [facility] Start: 06-01-[address] Melba Young Work Phone: [facility] Start: 07-22-2020 End: 07-22-2020 Patient encounter procedure GRACIA PATEL [facility] Procedures Date Procedure Procedure Detail Performing Clinician Start: 03-01-2025 Urnls dip stick/tablet reagent auto microscopy Dr. Melba Young MD Work Phone: Start: 10-17-2024 Dual energy X-ray absorptiometry Dr. Melba Young MD Work Phone: Start: 08-22-[address] Melba Young MD Work Phone: Start: 06-27-2024 Urnls dip stick/tablet rgnt auto w/o microscopy Bhupendra GAONA Work Phone: Start: 03-15-2024 Urnls dip stick/tablet rgnt auto w/o microscopy Ivanna Vivas APRN.CNP Work Phone: Start: 08-03-2022 Dual energy X-ray absorptiometry Dr. Melba Young Work Phone: Start: 02-08-[address] 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 eval remote 90 d 1/2/emergency care tech lead pm Karolina Blanc PA-C Work Phone: Start: 01-20-2017 End: 01-21-2017 Herpes simplex virus 1+2 IgG Ab [Units/volume] in Serum Lauren Camacho MD Work Phone: Start: 01-20-2017 End: 01-21-2017 Herpes simplex virus 1+2 IgG Ab [Units/volume] in Serum Lauren Camacho MD Work Phone: Start: 11-15-2016 End: 11-15-2016 Interrogation eval remote 90 d 1/2/emergency care tech lead pm Karolina Blanc PA-C Work Phone: [...] Barrett Biswas MD Start: 09-22-2016 End: 12-20-2016 TELESCOPE REPAIRER Barrett Biswas MD Start: 09-22-2016 End: 09-22-2016 Ecg routine ecg w/least 12 lds w/i&r Barrett Biswas MD Start: 09-22-2016 End: 12-20-2016 Follow Up Appt 3 months Greta Mcgraw Start: 09-22-2016 End: 09-22-2016 *ROJAS Biswas MD Start: 09-22-2016 End: 09-22-2016 CBC W Auto Differential panel - Blood Barrett Biswas MD Start: 09-22-2016 End: 12-20-2016 TELESCOPE REPAIRER Barrett Biswas MD Start: 09-22-2016 End: 09-22-2016 [...] Barrett Biswas MD Start: 04-15-2016 End: 09-22-2016 TELESCOPE REPAIRER Barrett Biswas MD Start: 04-15-2016 End: 09-22-2016 Follow Up Appt 1 year Barrett Biswas MD Start: 04-15-2016 End: 04-15-2016 Nurse, Teaching, Wound Check (no charge) Barrett Biswas MD Start: 04-15-2016 End: 04-15-2016 Documentation of current medications Barrett Biswas MD Start: 04-15-2016 End: 09-22-2016 TELESCOPE REPAIRER Barrett Biswas MD Start: 04-15-2016 End: 09-22-2016 Follow Up Appt 1 year Barrett Biswas MD Start: 04-15-2016 End: 04-15-2016 Nurse, Teaching, Wound Check (no charge) Barrett Biswas MD Start: 04-14-2016 End: 04-16-2016 *ROJAS Biswas MD Start: 04-14-2016 End: 04-16-2016 *UA [...] Barrett Biswas MD Start: 04-14-2016 End: 04-16-2016 *ROJAS Biswas MD Start: 04-14-2016 End: 04-16-2016 *UA [...] Barrett Biswas MD Start: 05-01-2014 End: 05-06-2014 TELESCOPE REPAIRER Barrett Biswas MD Start: 05-01-2014 End: 04-23-2016 Follow Up Appt 3 months Greta Mcgraw Start: 05-01-2014 End: 05-06-2014 Follow Up Appt 6 months Greta Mcgraw Start: 05-01-2014 End: 04-23-2016 Pacer Clinic Barrett Biswas MD Start: 05-01-2014 End: 05-01-2014 Program eval implantable in persn dual ld pacer Barrett Biswas MD Start: 05-01-2014 End: 05-06-2014 TELESCOPE REPAIRER Barrett Biswas MD Start: 05-01-2014 End: 04-23-2016 Follow [...] Start: 10-23-2012 End: 10-23-2012 Pm device progr valal, dual Barrett Biswas MD Start: 07-19-2012 End: [...] Start: 07-19-2012 End: 07-19-2012 Pm device progr marito dual Barrett Biswas MD Start: 03-16-2012 End: [...] RSV Vaccine (1 - 1-dose 75+ series) [facility] Start: 12-01-2027 Urine microalbumin profile DTaP,Tdap,Td Vaccine (2 - Td or Tdap) [facility] Start: 04-11-2027 Screening for malign ant neoplasm of colon [facility] Start: 03-01-2025 Urine culture Urine Culture [facility] Start: 03-01-2025 Patient encounter procedure Registered Clinical -Laboratory Work Phone: Start: 03-01-2025 End: 03-01-2025 Patient encounter procedure Hem[facility] Work Phone: Start: 05-09-2024 Advance Directive Discussion Advance Directive Discussion [facility] Start: 01-08-2024 Covid-19 Vaccine ( season) Covid-19 Vaccine () [facility] Start: 08-07-2023 Diabetes Screening Diabetes Screenin g [facility] Start: 05-09-2023 Advance Directive Discussion Advance Directive Discussion [facility] Start: 2020 Pneumococcal Vaccine : 65+ (1 of 1 - PCV) Pneumococcal Vaccine: 65+ (1 of 1 - PCV) [facility] Start: 04-03-2019 Lipid panel Lipid Screening [facility] Start: 08-12-2017 Screening for malign ant neoplasm of breast Mammogram Screening [facility] Start: 05-31-2017 End: 05-31-2017 Appointment Appointment [facility] Work Phone: Start: 03-09-2017 End: 03-09-2017 Appointment Appointment [facility] Start: 02-21-2017 End: 02-21-2017 Appointment Appointment [facility] Work Phone: Start: 02-21-2017 End: 02-22-2017 Follow Up Appt 3 months Follow Up Appt 3 months [facility] Work Phone: Start: 02-21-2017 End: 02-22-2017 Pacer [facility] Work Phone: Start: 02-09-2017 End: 02-09-2017 Appointment Appointment [facility] Start: 01-20-2017 End: 01-20-2017 *HSVS HSV Culture Screen [id number] *HSVS HSV Culture Screen [id number] [facility] Start: 01-20-2017 End: 01-21-2017 Herpes simplex virus 1+2 IgG Ab [Units/volume] in Serum *HS12G Herpes Simplex Antibody [facility] Start: 01-20-2017 End: 01-20-2017 Appointment Appointment [facility] Start: 01-20-2017 End: 01-20-2017 *HSVS HSV Culture Screen [id number] *HSVS HSV Culture Screen [id number] [facility] Start: 01-20-2017 End: 01-21-2017 Herpes simplex virus 1+2 IgG Ab [Units/volume] in Serum *HS12G Herpes Simplex Antibody [facility] Start: 12-23-2016 End: 12-23-2016 Appointment Appointment [facility] Work Phone: Start: 12-23-2016 End: 12-23-2016 Appointment Appointment [facility] Work Phone: Start: 11-15-2016 End: 11-15-2016 Follow Up Appt 3 months Follow Up Appt 3 months [facility] Start: 11-15-2016 End: 11-15-[address] [facility] Start: 11-15-2016 End: 11-15-2016 Appointment Appointment [facility] Work Phone: Start: 11-15-2016 End: 11-15-2016 Follow Up Appt 3 months Follow Up Appt 3 months [facility] Work Phone: Start: 11-15-2016 End: 11-15-2016 Pacer [facility] Clinic [facility] Work Phone: Start: 10-25-2016 End: 10-25-2016 Appointment Appointment [facility] Work Phone: Start: 10-25-2016 End: 10-25-2016 Appointment Appointment [facility] Work Phone: Start: 10-08-2016 End: 10-08-2016 *BMP *BMP [facility] Start: 10-08-2016 End: 10-08-2016 *BMP *BMP [facility] Work Phone: Start: 09-22-2016 End: 09-22-2016 *BMP *BMP [facility] Start: 09-22-2016 End: 09-22-2016 Appointment Appointment [facility] Work Phone: Start: 09-22-2016 End: 09-22-2016 CBC W Auto Differential panel - Blood *CBC without Diff [facility] Start: 09-22-2016 End: 12-20-2016 TELESCOPE REPAIRER TELESCOPE REPAIRER [facility] Start: 09-22-2016 End: 09-22-2016 Ecg routine ecg w/least 12 lds w/i&r EKG (In office) [facility] Start: 09-22-2016 End: 12-20-2016 Follow Up Appt 3 months Follow Up Appt 3 months [facility] Start: 09-22-2016 End: 10-08-2016 Left Heart Cath Left Heart Cath [facility] Start: 09-22-2016 End: 09-22-2016 *BMP *BMP [facility] Work Phone: Start: 09-22-2016 End: 09-22-2016 CBC W Auto Differential panel - Blood *CBC without Diff [facility] Work Phone: Start: 09-22-2016 End: 12-20-2016 TELESCOPE REPAIRER TELESCOPE REPAIRER [facility] Work Phone: Start: 09-22-2016 End: 09-22-2016 Electrocardiogram, complete EKG (In office) [facility] Work Phone: Start: 09-22-2016 End: 12-20-2016 Follow Up Appt 3 months Follow Up Appt 3 months [facility] Work Phone: Start: 09-22-2016 End: 10-08-2016 Left Heart Cath Left Heart Cath [facility] Work Phone: Start: 04-26-2016 End: 09-22-2016 Follow Up Appt 6 months Follow Up Appt 6 months [facility] Start: 04-26-2016 End: 09-22-2016 Pacer Clinic Pacer Clinic [facility] Start: 04-26-2016 End: 09-22-2016 Follow Up Appt 6 months Follow Up Appt 6 months [facility] Work Phone: Start: 04-26-2016 End: 09-22-2016 Pacer Clinic Pacer Clinic [facility] Work Phone: Start: 04-15-2016 End: 09-22-2016 TELESCOPE REPAIRER TELESCOPE REPAIRER [facility] Start: 04-15-2016 End: 09-22-2016 Follow Up Appt 1 year Follow Up Appt 1 year [facility] Start: 04-15-2016 End: 09-22-2016 [facility] Work Phone: Start: 04-15-2016 End: 09-22-2016 Follow Up Appt 1 year Follow Up Appt 1 year [facility] Work Phone: Start: 04-14-2016 End: 04-16-2016 *BMP *BMP [facility] Start: 04-14-2016 End: 04-16-2016 *UA - Urinalysis w/o Micro *UA - Urinalysis w/o Micro [facility] Start: 04-14-2016 End: 04-16-2016 CBC W Auto Differential panel - Blood *CBC without Diff [facility] Start: 04-14-2016 End: 04-16-2016 Chest x-ray X-Ray, Chest, PA & Lateral [facility] Start: 04-14-2016 End: 04-23-2016 Ecg routine ecg w/least 12 lds w/i&r EKG (In office) [facility] Start: 04-14-2016 End: 04-16-2016 INR Coag RelTime (PPP) *PT/INR [facility] Start: 04-14-2016 End: 04-15-2016 Pacemaker Generator Change Pacemaker Generator Change [facility] Start: 04-14-2016 End: 04-16-2016 *BMP *BMP [facility] Work Phone: Start: 04-14-2016 End: 04-16-2016 *UA - Urinalysis w/o Micro *UA - Urinalysis w/o Micro [facility] Work Phone: Start: 04-14-2016 End: 04-16-2016 CBC W Auto Differential panel - Blood *CBC without Diff [facility] Work Phone: Start: 04-14-2016 End: 04-16-2016 Chest x-ray X-Ray, Chest, PA & Lateral [facility] Work Phone: Start: 04-14-2016 End: 04-16-2016 Coagulation factor induced.INR assay in platelet poor plasma *PT/INR [facility] Work Phone: Start: 04-14-2016 End: 04-23-2016 Electrocardiogram, complete EKG (In office) [facility] Work Phone: Start: 04-14-2016 End: 04-15-2016 Pacemaker Generator Change Pacemaker Generator Change [employer] Work Phone: Start: 12-26-2015 End: 04-23-2016 Follow Up Appt 3 months Follow Up Appt 3 months [facility] Start: 12-26-2015 End: 04-23-[address] [facility] Start: 12-26-2015 End: 04-23-2016 Follow Up Appt 3 months Follow Up Appt 3 months [facility] Work Phone: Start: 12-26-2015 End: 04-23-2016 Pacer Clinic Pacer Clinic [facility] Work Phone: Start: 07-09-2015 End: 04-23-2016 Follow Up Appt 6 months Follow Up Appt 6 months [facility] Start: 07-09-2015 End: 04-23-2016 Pacer Clinic Pacer Clinic [facility] Start: 07-09-2015 End: 04-23-2016 Follow Up Appt 6 months Follow Up Appt 6 months [facility] Work Phone: Start: 07-09-2015 End: 04-23-2016 Pacer Clinic Pacer Clinic [facility] Work Phone: Start: 2015 RSV Vaccine (1 - Ris k 60-74 years 1-dose series) RSV Vaccine (1 - Risk 60-74 years 1-dose series) [facility] Start: 04-02-2015 End: 04-23-2016 Follow Up Appt 3 months Follow Up Appt 3 months [facility] Start: 04-02-2015 End: 04-23-2016 [facility] Start: 04-02-2015 End: 04-23-2016 Follow Up Appt 3 months Follow Up Appt 3 months [facility] [employer] [facility] Work Phone: Start: 04-02-2015 End: 04-23-2016 [facility] Work Phone: Start: 11-14-2014 End: 04-23-2016 Follow Up Appt 3 months Follow Up Appt 3 months [facility] Start: 11-14-2014 End: 04-23-2016 [facility] Start: 11-14-2014 End: 04-23-2016 Follow Up Appt 3 months Follow Up Appt 3 months [employer] Work Phone: Start: 11-14-2014 End: 04-23-2016 [facility] Work Phone: Start: 08-15-2014 End: 04-23-2016 Follow Up Appt 6 months Follow Up Appt 6 months [facility] Start: 08-15-2014 End: 04-23-2016 [facility] Start: 08-15-2014 End: 04-23-2016 Follow Up Appt 6 months Follow Up Appt 6 months [facility] Work Phone: Start: 08-15-2014 End: 04-23-2016 [facility] Work Phone: Start: 05-01-2014 End: 05-06-2014 TELESCOPE REPAIRER TELESCOPE REPAIRER [facility] Start: 05-01-2014 End: 04-23-2016 Follow Up Appt 3 months Follow Up Appt 3 months [facility] Start: 05-01-2014 End: 05-06-2014 Follow Up Appt 6 months Follow Up Appt 6 months [facility] Start: 05-01-2014 End: 04-23-2016 [facility] Start: 05-01-2014 End: 05-06-2014 TELESCOPE REPAIRER TELESCOPE REPAIRER [facility] Work Phone: Start: 05-01-2014 End: 04-23-2016 Follow Up Appt 3 months Follow Up Appt 3 months [facility] Work Phone: Start: 05-01-2014 End: 05-06-2014 Follow Up Appt 6 months Follow Up Appt 6 months [facility] Work Phone: Start: 05-01-2014 End: 04-23-2016 [facility] Work Phone: Start: 04-15-2014 End: 04-23-2016 Follow Up Appt 3 months Follow Up Appt 3 months [facility] Start: 04-15-2014 End: 04-23-2016 [facility] Start: 04-15-2014 End: 04-23-2016 Follow Up Appt 3 months Follow Up Appt 3 months [facility] Work Phone: Start: 04-15-2014 End: 04-23-2016 [facility] Work Phone: Start: 12-28-2013 End: 04-23-2016 Follow Up Appt 3 months Follow Up Appt 3 months [facility] Start: 12-28-2013 End: 04-23-2016 [facility] Start: 12-28-2013 End: 04-23-2016 Follow Up Appt 3 months Follow Up Appt 3 months [facility] Work Phone: Start: 12-28-2013 End: 04-23-2016 Pacer Clinic Pacer [facility] Work Phone: Start: 08-15-2013 End: 12-28-2013 Follow Up Appt 3 months Follow Up Appt 3 months [facility] Start: 08-15-2013 End: 12-28-2013 [facility] Start: 08-15-2013 End: 12-28-2013 Follow Up Appt 3 months Follow Up Appt 3 months [facility] Work Phone: Start: 08-15-2013 End: 12-28-2013 Pacer [facility] Work Phone: Start: 02-01-2013 End: 12-28-2013 Follow Up Appt 3 months Follow Up Appt 3 months [facility] Start: 02-01-2013 End: 12-28-[facility] Start: 02-01-2013 End: 12-28-2013 Follow Up Appt 3 months Follow Up Appt 3 months [facility] Work Phone: Start: 02-01-2013 End: 12-28-2013 [facility] [facility] Work Phone: Start: 10-23-2012 End: 12-28-2013 Follow Up Appt 3 months Follow Up Appt 3 months [facility] Start: 10-23-2012 End: 12-28-2013 [facility] Start: 10-23-2012 End: 12-28-2013 Follow Up Appt 3 months Follow Up Appt 3 months [facility] Work Phone: Start: 10-23-2012 End: 12-28-2013 [facility] Work Phone: Start: 07-19-2012 End: 12-28-2013 Follow Up Appt 3 months Follow Up Appt 3 months [facility] Start: 07-19-2012 End: 12-28-2013 [facility] Start: 07-19-2012 End: 12-28-2013 Follow Up Appt 3 months Follow Up Appt 3 months [facility] Work Phone: Start: 07-19-2012 End: 12-28-2013 Pac[facility] Clinic Pacer [facility] Work Phone: Start: 03-16-2012 End: 12-28-2013 Ecg routine ecg w/least 12 lds w/i&r EKG (In office) [facility] Start: 03-16-2012 End: 03-16-2012 Follow Up Appt 1 year Follow Up Appt 1 year [facility] Start: 03-16-2012 End: 12-28-2013 Electrocardiogram, complete EKG (In office) [facility] Work Phone: Start: 03-16-2012 End: 03-16-2012 Follow Up Appt 1 year Follow Up Appt 1 year [facility] Work Phone: Start: 2005 Shingrix Vaccine (1 of 2) Shingrix Vaccine (1 of 2) [facility] Start: 2000 Screening for malign ant neoplasm of colon [facility] Start: 1974 Pneumococcal Vaccine : 50+ (1 of 2 - PCV) Pneumococcal Vaccine: 50+ (1 of 2 - PCV) [facility] Start: 1974 Shingrix Vaccine (1 of 2) Shingrix Vaccine (1 of 2) [facility] Start: 1973 Anxiety Screening Anxiety Screening [facility] Start: 1973 Depression Screening Depression Scre ening [facility] Bacteria identified in Urine by Culture URINE CULTURE Microbiology Routine Acute UTI Ordered: 03/15/2024 [facility] Work Phone: Comment on above: Ordered: 03/15/2024 Bacteria identified in Urine by Culture BACTERIAL CULTURE, URINE Microbiology Routine Burning with urination Ordered: 06/27/2024 [facility] Work Phone: Comment on above: Ordered: 06/27/2024 DXA Bone [Mass/Area] Bone density [facility] Lipid 1996 panel - Serum or Plasma [facility] MG Breast - bilatera l Screening [facility] Work Phone: MG Breast - bilatera l Screening [facility] Immunizations Immunization Date Immunization Notes Care Provider Fa esha 02-21-2025 Seasonal trivalent influenza vaccine, adjuvanted, preservative free Dr. Melba Young MD Work Phone: [facility] 03-13-2024 Seasonal trivalent influenza vaccine, adjuvanted, preservative free Dr. Melba Young MD Work Phone: [facility] 03-14-2023 influenza, injectabl e, quadrivalent, preservative free Dr. Melba Young Work Phone: [facility] 04-16-2022 influenza, injectabl e, quadrivalent, preservative free Dr. Melba Young Work Phone: [facility] 04-16-2022 influenza, seasonal, injectable Dr. Melba Young Work Phone: [facility] 04-17-2021 Covid (Pfizer) Dr. Melba Young MD Work Phone: [facility] 07-23-2020 Covid (Andrea & Andrea) Dr. Melba Young Work Phone: [facility] 07-22-2020 Covid (Andrea & Andrea) Dr. Melba Young MD Work Phone: [facility] 03-20-2020 influenza, injectabl e, quadrivalent, contains preservative Ines Athy PA-C Work Phone: [facility] 03-20-2020 influenza, injectabl e, quadrivalent, preservative free Dr. Melba Young MD Work Phone: [facility] 03-28-2019 influenza, injectabl e, quadrivalent, preservative free Dr. Melba Young MD Work Phone: [facility] 03-28-2019 influenza, seasonal, injectable Ines Athy PA-C Work Phone: [facility] 03-27-2018 influenza, injectabl e, quadrivalent, contains preservative Ines Athy PA-C Work Phone: [facility] 03-27-2018 influenza, injectabl e, quadrivalent, preservative free Dr. Melba Young MD Work Phone: [facility] 11-30-2017 tetanus toxoid, redu stella diphtheria toxoid, and acellular pertussis vaccine, adsorbed Ines Rosie PA-Chintan Work Phone: [facility] 02-15-2017 influenza, injectabl e, quadrivalent, contains preservative Ines Athy PA-C Work Phone: [facility] 02-15-2017 influenza, injectabl e, quadrivalent, preservative free Dr. Melba Young MD Work Phone: [facility] 05-19-2010 influenza virus vaccine, unspecified formulation Ines Athy PA-C Work Phone: [facility] Payers Date Payer Category Payer [facility] [id number] 2024 Unknown [id number] 2024 Self-pay [id number] 2024 Medicare [id number] 2024 Unknown [id number] 2015 Private Health Insurance [employer] A ETNA POS [id number] 2015-Present [phone] [address] [place] [address] POS [id number] 2015 Private Health Insurance [id number] 2004 Unknown [facility] [id number] 1955 Unknown [id number] 2.16.840.1.531242.3.579.2.6 51 Unknown ANTHEM [id number] Unknown [id number] 2.16.840.1.327471.3.579.2.4 62 Unknown [id number] 2.16.840.1.253260.3.579.2.4 62 Unknown [id number] 2.16.840.1.110343.3.579.2.4 62 Unknown [id number] 2.16.840.1.851889.3.579.2.4 62 Unknown [id number] 2.16.840.1.491601.3.579.2.4 62 Unknown [id number] 2.16.840.1.015984.3.579.2.4 62 Unknown [id number] 2.16.840.1.564619.3.579.2.4 62 Unknown [id number] 2.16.840.1.069238.3.579.2.4 62 Unknown [id number] 2.16.840.1.855291.3.579.2.4 62 Unknown [id number] 2.16.840.1.410239.3.579.2.4 62 Unknown [id number] 2.16.840.1.296004.3.579.2.4 62 Unknown [id number] 2.16.840.1.714750.3.579.2.4 62 Unknown [id number] 2.16.840.1.771106.3.579.2.4 62 Unknown [id number] 2.16.840.1.828031.3.579.2.4 62 Unknown [id number] 2.16.840.1.675083.3.579.2.4 62 Unknown [id number] 2.16.840.1.148182.3.579.2.4 62 Unknown [id number] 2.16.840.1.220725.3.579.2.4 62 Unknown [id number] 2.16.840.1.207611.3.579.2.4 62 Unknown [id number] 2.16.840.1.556586.3.579.2.4 62 Unknown [id number] 2.16.840.1.940230.3.579.2.4 62 Unknown [id number] 2.16.840.1.587959.3.579.2.4 62 Unknown [id number] 2.16.840.1.430337.3.579.2.4 62 Unknown [id number] 2.16.840.1.463342.3.579.2.4 62 Social History Date Type Detail Facility Start: 06-01-2021 End: 03-14-2023 Tobacco smoking status INIS Unknown if ever smoked [facility] Start: 1955 Sex Assigned At Female [facility] Start: 04-14-2012 End: 03-14-2023 Tobacco smoking status NHIS Never smoked tobacco [facility] Work Phone: Start: 04-14-2012 Tobacco use and exposure Smokeless tobacco non-user [facility] Start: 03-15-2024 End: 06-27-2024 Alcoholic beverage intake Current drinker of alcohol (finding) [facility] Start: 2020 End: 03-15-2024 History of Social function [facility] Start: 2020 End: 03-15-2024 Tobacco use panel [facility] National Score (1-10 0), lower number is lower risk Not on file [facility] Start: 1955 Sex assigned at Not on file [facility] Start: 08-06-2024 End: 08-23-2024 Sex Female (finding) [facility] Functional Status Date Assessment Result Facility 04-26-2014 Are you deaf, or do you have serious difficulty hearing No 04/26/2014 10:52 AM Shireen King MA No [facility] 04-26-2014 Are you blind, or do you have serious difficulty seeing, even when wearing glasses No 04/26/2014 10:52 AM Shireen King MA No [facility] 04-26-2014 Do you have serious difficulty walking or climbing stairs No 04/26/2014 10:52 AM Shireen King MA No [facility] 04-26-2014 Do you have difficul ty dressing or bathing No 04/26/2014 10:52 AM Shireen King MA No [facility] 04-26-2014 Because of a physica l, mental, or emotional condition, do you have difficulty doing errands alone such as visiting a physician's office or shopping No 04/26/2014 10:52 AM Shireen King MA No [facility] Mental Status Date Assessment Result Facility 04-26-2014 Because of a physica l, mental, or emotional condition, do you have serious difficulty concentrating, remembering, or making decisions No 04/26/2014 10:52 AM Shireen King MA No [facility] Clinical Notes 03-15-2024 to 02-21-2025 Note Date & Type Note Facility 02-21-2025 Progress note [facility] 01-16-2025 Procedure note [facility] 01-16-2025 Evaluation note Diagnosis Onset Date Resolution Paroxysmal atrial tachycardia acute January 16, 2025 10:27am Presence of cardiac pacemaker chronic January 16, 2025 10:27am Bvykr-Admraotem-Cwgsf syndrome chronic January 16, 2025 10:27am Murmur chronic January 10:28am Presence of cardiac pacemaker chronic January 16, 2025 10:28am Jbckv-Srxfewgmm-Efvjr (WPW) syndrome chronic January 16, 2025 10:28am Hematuria acute March 01, 2025 8:28am [facility] Work Phone: 1(677) 328-179106-18-2025 Evaluation note* Diagnosis Onset Date Resolution Status Admit Date Anxiety chronic October 24 10:58am Constipation chronic October 24 025 10:58am Hyperlipidemia chronic October 24, 2024 10:58am Murmur chronic October 24 10:58am OAB (overactive bladder) chronic October 24, 2024 10:58am Osteoporosis chronic October 24 10:58am [facility] Work Phone: 1(550) 987-733206-18-2025 Evaluation note* Diagnosis Onset Date Resolution Status Admit Date Anxiety chronic October 24 10:58am Constipation chronic October 24, 025 10:58am Hyperlipidemia chronic October 24, 2024 10:58am Murmur chronic October 24 10:58am OAB (overactive bladder) chronic October 24, 2024 10:58am Osteoporosis chronic October 24 025 10:58am Murmur chronic January 10:28am Presence of cardiac pacemaker chroni c January 16, 2025 10:28am Ncigx-Gwaphvcbv-Updxt (WPW) syndrome chronic January 16, 2025 10:28am [facility] Work Phone: 1(510) 872-614206-18-2025 Evaluation note* Diagnosis Onset Date Resolution Status Admit Date Anxiety chronic October 24 10:58am Constipation chronic October 24, 025 10:58am Hyperlipidemia chronic October 24, 2024 10:58am Murmur chronic October 24 10:58am OAB (overactive bladder) chronic October 24, 2024 10:58am Osteoporosis chronic October 24 10:58am Paroxysmal atrial tachycardia acute January 16, 2025 10:27am Presence of cardiac pacemaker chroni c January 16, 2025 10:27am Pcooi-Vdlplsenb-Uzcba syndrome chron ic January 16, 2025 10:27am Murmur chronic January 10:28am Presence of cardiac pacemaker chroni c January 16, 2025 10:28am Tzvsj-Katrfapvg-Efsbc (WPW) syndrome chronic January 16, 2025 10:28am [facility] Work Phone: 1(240) 638-928104-16-2025 Radiology Diagnostic study note [facility] Imaging Services [address] [place], [place] [address] Liver MR#: [id number] Acct: [id number] Name: GISEL SAWYER Rep #: [id number] : 1955 F 69 From: Danielle Mahajan MD PCP: Dr. Melba Young MD Status: R EG CLI Study:Liver Date of Exam: 08/22/24 Exam# [id number] Ordering Dr: Stephanie Orta MD PROCEDURE: LIVER [...] 2. Additional description as above. Reading Location: [id number] CC: Dr. Melba Young MD; Dr. Stephanie Orta MD ~ Coffee Taster: Signed [facility]02-22-2025 Telephone encounter Note* Telephone Encounter - Marian Wolfe MA - 06/30/2024 12:55 PM EST Patient notified of results, verbalized understanding of instructions given. Marian Wolfe MA [facility]02-22-2025 Miscellaneous Notes* Telephone Encounter - Marian Wolfe MA - 06/30/2024 12:55 PM EST Patient notified of results, verbalized understanding of instructions given. Marian Wolfe MA * Telephone Encounter - Bhupendra Figueroa PA - 06/30/2024 8:08 AM EST Please contact patient and let her know she is on appropriate antibiotic therapy. Continue as prescribed. [facility] Telephone encounter Note * Telephone Encounter - Bhupendra Figueroa PA - 06/30/2024 8:08 AM EST Please contact patient and let her know she is on appropriate antibiotic therapy. Continue as prescribed. [facility]02-19-2025 NoteHNO ID: [id number] Author: BHUPENDRA FIGUEROA PA Service: ? Author Type: Physician Data Warehousing Manager Type: Progress Notes Filed: 06/27/2024 16:40 Note Text: This note was created using Yap. Subjective Gisel Sawyer is a 69 year old female. HPI 69-year-old female presents for UTI symptoms. Patient has had symptoms on and off for about a week. She has urgency, frequency, bladder pressure. She denies any blood in the urine, back pain, abdominal pain, fevers or vomiting. She has had a UTI in the past and this feels similar. She did take care, acbd-xvo-aodkfee a few days ago which did help [...] Specific signs and sy (more content not included)...[facility]02-19-2025 History of Present illness Narrative* Bhupendra Figueroa PA - 06/27/2024 4:38 PM EST This note was created using Haparariter. Subjective Gisel Sawyer is a 69 year old female. HPI 69-year-old female presents for UTI symptoms. Patient has had symptoms on and off for about a week. She has urgency, frequency, bladder pressure. She denies any blood in the urine, back pain, abdominal pain, fevers or vomiting. She has had a UTI in the past and this feels similar. She did take care, njcu-arj-qaucupb a few days ago which did help [...] Wt 55.5 kg (122 lb 5.7 oz) LMP12/22/2006 SpO2 98% BMI 19.16 kg/m Physical Exam [...] ER evaluation. JIMENEZ Perry [facility] Evaluation note* Diagnosis Onset Date Resolution Status Admit Date Anxiety chronic April 23, 2024 11:00am Constipation chronic April h2023 11:00am Osteoporosis chronic April 11:00am [facility] Work Phone: 1(262) 448-750311-07-2024 NoteHNO ID: [id number] Author: INES ARCOS PA-C Service: ? Author Type: Physician Data Warehousing Manager Type: Progress Notes Filed: 03/15/2024 09:22 Note Text: This note was created using Haparariter. Subjective Gisel Sawyer is a 68 year old female. HPI Patient presents with a chief complaint of urinary frequency, dysuria over the past 3 days. She tried some jwwi-dfn-qpwumbw urinary medication which did not seem to [...] DIP, URINE (POC) - URINE CULTURE JIMENEZ [facility]11-07-2024 History of Present illness Narrative* Ines Arcos PA-C - 03/15/2024 9:20 AM EST This note was created using Haparariter. Subjective Gisel Sawyer is a 68 year old female. HPI Patient presents with a chief complaint of urinary frequency, dysuria over the past 3 days. She tried some ptaj-avo-puqikbd urinary medication which did not seem to [...] CULTURE Ines Arcos PA-C documented [facility] encounter[facility] HospitalEvaluation [facility]* Diagnosis Onset Date Resolution Status Paroxysmal atrial fibrillation chronic Presence of cardiac pacemaker chronic Mlwbt-Jneueerzu-Csozu syndrome chronic Paroxysmal atrial fibrillation chronic Presence of cardiac pacemaker chronic Skhqz-Qfnngwxyd-Ctipe syndrome [facility] Work Phone: Evaluation note* Diagnosis Onset Date Resolution Status Paroxysmal atrial fibrillation chronic Presence of cardiac pacemaker chronic Yldds-Yjsgirdqe-Zsiph syndrome chronic Chronic constipation chronic Osteoporosis chronic Rheumatoid arthritis [facility] Work Phone: Evaluation note* Diagnosis Onset Date Resolution Status Paroxysmal atrial fibrillation chronic Presence of cardiac pacemaker chronic Etudk-Asvlcharz-Nohke syndrome chronic Chronic constipation chronic Osteoporosis chronic Rheumatoid arthritis chronic Paroxysmal atrial fibrillation chronic Presence of cardiac pacemaker chronic Kxhhx-Hsznagohm-Wxvgf syndrome [facility] Work Phone: Evaluation note* Diagnosis Onset Date Resolution Status Chronic constipation chronic Osteoporosis chronic Rheumatoid arthritis chronic Paroxysmal atrial fibrillation chronic Presence of cardiac pacemaker chronic Ebekr-Akabpvlkw-Wzkvu syndrome [facility] Work Phone: Evaluation note* Diagnosis Onset Date Resolution Status Anxiety acute Health care maintenance acut e Chronic constipation chronic Osteoporosis chronic Rheumatoid arthritis [facility] Work Phone: Evaluation note* Diagnosis Onset Date Resolution Status Anxiety acute Health care maintenance acut e Chronic constipation chronic Osteoporosis chronic Rheumatoid arthritis chronic Paroxysmal atrial fibrillation chronic Presence of cardiac pacemaker chronic Bmehh-Jflhzxpcs-Tpnzu (WPW) syndrome [facility] Work Phone: Evaluation note* Diagnosis Onset Date Resolution Status Paroxysmal atrial fibrillation chronic Presence of cardiac pacemaker chronic Tajfh-Kqqsoltck-Zrrnj syndrome chronic Health care maintenance acut e Hyperlipidemia acute Murmur chronic Osteoporosis chronic Rheumatoid arthritis [facility] Work Phone: Evaluation note* Diagnosis Onset Date Resolution Status Paroxysmal atrial fibrillation chronic Presence of cardiac pacemaker chronic Jlhsk-Edgzqycas-Ykomk syndrome chronic Health care maintenance acut e Hyperlipidemia acute Murmur chronic Osteoporosis chronic Rheumatoid arthritis chronic Paroxysmal atrial fibrillation chronic Presence of cardiac pacemaker chronic Divcz-Rfbvlwsld-Fvgcz (WPW) syndrome chronic Murmur chronic Presence of cardiac pacemaker chronic Vfqgm-Etsiswyvx-Dylxo (WPW) syndrome chronic [facility] Work Phone: Evaluation note* Diagnosis Onset Date Resolution Status Immunization due noneactive [facility] Work Phone: Evaluation noteNo assessment information available [facility] Work Phone: Evaluation note* Diagnosis Acute UTI- Primary Urinary tract infection, site not specified [facility] encounter [facility] Diagnosis Acute UTI- Primary Urinary tract infection, site not specified Burning with urination Dysuria documented in this encounter [facility] Author Elena Lanza [facility] Note Date/Time February 21, 2025 1 0:52am [facility] [address] [place] [address] OFFICE VISIT Date of Service: 02/21/25 MR#: [id number] Acct: [id number] Patient: GISEL SAWYER Rep #: [id number] : 1955 Provider: JETT Garcia Age/Sex: 69/F Location[facility] Status: Signed Intake Vital Signs 01/16/25 10:41 Height 5 ft 7 in Intake Visit Reasons: FLU SHOT Chief Complaint: 6 M FU Allergies No Known Allergies Allergy (Verified 01/16/25 10:49) Have you fallen in the past year?: No Immunizations Fluad 65yr up(PF)45 mcg(15 mcgx3)/0.5 mL intramuscular syringe Performing Provider: DEBRA Das Performing Location: [facility] Administered by: Ramila Vaughn LPN on 02/21/25 10:13 Dose Route Admin Location Dispensed Lot Number Expiration Date Pack age NDC NDC Filing And Polishing Supervisor 45 mcg IM Left Deltoid 0.5 mL [id number] 09/03/25 88699-847-63 [id number] [employer]. VIS Given Date VIS Provided VIS Publication Date 02/21/25 Single Vaccine 24 Eligibility Eligibility Date Funding Source Not Applicable Administration Comments: pt presented to the office for flu immunization pt completed and signed consent form, VIS given requested left arm for injection, pt tolerated well no concerns. pt denies any adverse/allergic reactions to influenza immunizations in the past. Assessment and Plan Assessment and Plan Orders: Orders Influenza Immunization Today Z23 - Encounter for immunization Clinical Quality Measures Falls Risk Screening/Assistive Devices Have you fallen in the past year?: No 02/21/25 1337 <Electronically signed by Elena kaur NP-C> Date _ Elena Lanza SANDWICH PEDDLER-C Cosigner Signature: Date (if applicable) CC: ~ [facility] Work Phone: Reason for referral (narrative)No reason for referral information [facility]WT[facility] Work Phone: Summary Purpose Family History Relationship Condition Age at Onset Recorded Date/T mateusz father Myocardial infarction 70 Arthritis Unknown mother Cerebrovascular accident (CVA) Unknown Heterozygous factor V Leiden mutation Unk nown Cardiac disease Unknown Advance Directives Advance Directive Response Recorded Date/ Time Advance Directives No April 16, 2016 11:58am Living Will Yes April 07 11:48am Power of County Director Welfare No April 11, 2017 8:14pm Advance Directive Response Recorded Date/ Time Advance Directives No April 16, 2016 10:58am Living Will Yes April 07 10:48am Power of County Director Welfare No April 11, 2017 7:14pm Advance Directive Response Recorded Date/ Time Living Will Yes April 07 11:48am Do you have a Healthcare Power of County Director Welfare? No April 11, 2017 8:14pm Advance Directives No April 16, 2016 11:58am Advance Directive Response Recorded Date/ Time Advance Directives No April 16, 2016 11:58am Chief Complaint and Reason for Visit Chief Complaint 3 mos remote PPM f/u S/O - COPY PCP 3 mos remote PPM f/u STANDING ORDER/COPY PCP Reason for Visit Paroxysmal atrial fi brillation Presence of cardiac pacemaker Cyzyi-Gelszooii-Mxfwu syndrome Paroxysmal atrial fibrillation Presence of cardiac pacemaker Iayfo-Nxvjeqeka-Biong syndrome Chief Complaint 3 mos remote PPM f/u STANDING ORDER/COPY PCP 6 M FU Reason for Visit Paroxysmal atrial fi brillation Presence of cardiac pacemaker Lyttx-Xssuyavks-Blhvz syndrome Chronic constipation Osteoporosis Rheumatoid arthritis Chief Complaint 3 mos remote PPM f/u STANDING ORDER/COPY PCP 6 M FU 3 mos remote PPM f/u STANDING ORDER Reason for Visit Paroxysmal atrial fi brillation Presence of cardiac pacemaker Bufvm-Ggftxuvze-Fmeco syndrome Chronic constipation Osteoporosis Rheumatoid arthritis Paroxysmal atrial fibrillation Presence of cardiac pacemaker Ccsap-Ufmbrxche-Xtsbk syndrome Chief Complaint 6 M FU 3 mos remote PPM f/u STANDING ORDER SCREENING Reason for Visit Chronic constipation Osteoporosis Rheumatoid arthritis Paroxysmal atrial fibrillation Presence of cardiac pacemaker Iiyzj-Ziwjnydjn-Pkger syndrome Chief Complaint STANDING ORDER flu shot [...] Paroxysmal atrial fibrillation Presence of cardiac pacemaker Jvluk-Agcmkownh-Ffhbu (WPW) syndrome Chief Complaint 6 M FU EORDER AND ADD VELLANKI STANDING ORDER 3 mos remote PPM f/u SCREENING S/O- PAIN - COPY PCP Reason for Visit Anxiety Health care maintenance Chronic constipation Osteoporosis Rheumatoid arthritis Paroxysmal atrial fibrillation Presence of cardiac pacemaker Wcuvs-Xplojhoky-Yvbdq (WPW) syndrome Chief Complaint S/O- PAIN - COPY PCP 3 mos remote PPM f/u FOLLOW UP S/O- PAIN- COPY PCP MURMUR Reason for Visit Paroxysmal atrial fi brillation Presence of cardiac pacemaker Icqnh-Dvgidtjsa-Pajmm syndrome Health care maintenance Hyperlipidemia Murmur Osteoporosis Rheumatoid arthritis Chief Complaint 3 mos remote PPM f/u FOLLOW UP S/O- PAIN- COPY PCP MURMUR IN OFFICE PACER CHECK / TELESCOPE REPAIRER @ 2:30 RE-EST / PREV TELESCOPE REPAIRER PT / TANA @ 2 S/O- PAIN COPY PCP Reason for Visit Paroxysmal atrial fi brillation Presence of cardiac pacemaker Xdfrg-Gcleydind-Gsixc syndrome Health care maintenance Hyperlipidemia Murmur Osteoporosis Rheumatoid arthritis Paroxysmal atrial fibrillation Presence of cardiac pacemaker Ronvg-Hgyhgxsqr-Bmmad (WPW) syndrome Murmur Presence of cardiac pacemaker Wbcsb-Vumocpwcg-Koeet (WPW) syndrome Chief Complaint Pacer Check Remote [...] ELEVATED LIVER ENZYMES August 22, 2024 7:15am Chief Complaint Admit Date S/O- PAIN- COPY PCP July 31, 2024 9:2 1am Pacer Check Remote August 03, 2024 2:1 8am ELEVATED LIVER ENZYMES August 22, 2024 7:15am PAIN- COPY PCP August 27, 2024 2:2 1pm OSTEO October 17, 2024 7:34 am Chief Complaint Admit Date S/O- PAIN- COPY PCP July 31, 2024 9:2 1am Pacer Check Remote August 03, 2024 2:1 8am ELEVATED LIVER ENZYMES August 22, 2024 7:15am PAIN- COPY PCP August 27, 2024 2:2 1pm OSTEO October 17, 2024 7:34 am 6 M FU October 24, 2024 10:5 8am Chief Complaint Admit Date S/O- PAIN- COPY PCP July 31, 2024 9:2 1am Pacer Check Remote August 03, 2024 2:1 8am ELEVATED LIVER ENZYMES August 22, 2024 7:15am PAIN- COPY PCP August 27, 2024 2:2 1pm OSTEO October 17, 2024 7:34 am 6 M FU October 24, 2024 10:5 8am Pacer Check Remote November 02, 2024 2:00 am Reason for Visit Admit Date Anxiety October 24, 2024 10:5 8am Constipation October 24, 2024 10:5 8am Hyperlipidemia October 24, 2024 10:5 8am Murmur October 24, 2024 10:5 8am OAB (overactive bladder) October 24, 2024 10:58am Osteoporosis October 24, 2024 10:5 8am Chief Complaint Admit Date S/O- PAIN- COPY PCP July 31, 2024 9:2 1am Pacer Check Remote August 03, 2024 2:1 8am ELEVATED LIVER ENZYMES August 22, 2024 7:15am PAIN- COPY PCP August 27, 2024 2:2 1pm OSTEO October 17, 2024 7:34 am 6 M FU October 24, 2024 10:5 8am Pacer Check Remote November 02, 2024 2:00 am S/O November 23, 2024 9:05 am Chief Complaint Admit Date OSTEO October 17, 2024 7:34 am 6 M FU October 24, 2024 10:5 8am Pacer Check Remote November 02, 2024 2:00 am S/O November 23, 2024 9:05 am Annual In-Clinic Check/ Sees MMM @ 11 Se pt2024 10:27am 1 Y FU/ Sees Tana @ 10:30 January 16, 2025 10:28am Reason for Visit Admit Date Anxiety October 24, 2024 10:5 8am Constipation October 24, 2024 10:5 8am Hyperlipidemia October 24, 2024 10:5 8am Murmur October 24, 2024 10:5 8am OAB (overactive bladder) October 24, 2024 10:58am Osteoporosis October 24, 2024 10:5 8am Murmur January 16, 2025 10:28am Presence of cardiac pacemaker January 16, 2025 10:28am Gsunv-Ufcutxsow-Tztmd (WPW) syndrome Sep tember 2024 10:28am Reason for Visit Admit Date Anxiety October 24, 2024 10:5 8am Constipation October 24, 2024 10:5 8am Hyperlipidemia October 24, 2024 10:5 8am Murmur October 24, 2024 10:5 8am OAB (overactive bladder) October 24, 2024 10:58am Osteoporosis October 24, 2024 10:5 8am Paroxysmal atrial tachycardia January 16, 2025 10:27am Presence of cardiac pacemaker January 16, 2025 10:27am Uczjg-Vsgjvwrrs-Nxlqz syndrome January 16, 2025 10:27am Murmur January 16, 2025 10:28am Presence of cardiac pacemaker January 16, 2025 10:28am Iqyyr-Ckigzveqg-Hsxal (WPW) syndrome Sep tem2024 10:28am Chief Complaint Admit Date OSTEO October 17, 2024 7:34 am 6 M FU October 24, 2024 10:5 8am Pacer Check Remote November 02, 2024 2:00 am S/O November 23, 2024 9:05 am Annual In-Clinic Check/ Sees MMM @ 11 ptember 2024 10:27am 1 Y FU/ Sees Tana @ 10:30 January 16, 2025 10:28am Pacer Check Remote January 16, 2025 3:22pm Chief Complaint Admit Date OSTEO October 17, 2024 7:34 am 6 M FU October 24, 2024 10:5 8am Pacer Check Remote November 02, 2024 2:00 am S/O November 23, 2024 9:05 am Annual In-Clinic Check/ Sees MMM @ 11 ptember 2024 10:27am 1 Y FU/ Sees Tana @ 10:30 January 16, 2025 10:28am Pacer Check Remote January 16, 2025 3:22pm Pacer Check Remote February 01, 2025 3:36am Chief Complaint Admit Date S/O November 23, 2024 9:05 am Annual In-Clinic Check/ Sees MMM @ 11 ptember 2024 10:27am 1 Y FU/ Sees Tana @ 10:30 January 16, 2025 10:28am Pacer Check Remote January 16, 2025 3:22pm Pacer Check Remote February 01, 2025 3:36am CARDIAC MURMUR, UNSPECIFIED February 14, 2025 9:46am FLU SHOT February 21, 2025 9 :54am blood noted after urinating February 8:28am E ORDER March 01, 2025 1 1:02am Reason for Visit Admit Date Paroxysmal atrial tachycardia January 16, 2025 10:27am Presence of cardiac pacemaker January 16, 2025 10:27am Uwlks-Zmxnzraoy-Tgkmi syndrome January 16, 2025 10:27am Murmur January 16, 2025 10:28am Presence of cardiac pacemaker January 16, 2025 10:28am Upgjp-Yvfsclhtf-Rpmeu (WPW) syndrome Sep tember 2024 10:28am Hematuria March 01, 2025 8 :28am Additional Source Comments INFORMATION SOURCE (unrecogn ized section and content) DATE CREATED AUTHOR 08/04/2020 Chava Carroll [facility] DATE CREATED AUTHOR AUTHOR'S ORGANIZ ATION 07/02/2024 [facility] DATE CREATED AUTHOR AUTHOR'S ORGANIZ ATION 03/06/2025 [facility] Goals (unrecognized section and content) Goals may [...] Status: Inactive Member Role Status Dates Dr. Melab Young MD Primary Care Provider Active Dr. Stephanie Orta MD Attending Provider Active Team Status: Inactive Member Role Status Dates Dr. Melba Young MD Primary Care P robroder, Attending Provider, Referring Provider Active Dr. Stephanie [...] Dr. Barrett Biswas MD Attending Provider Active Device Processing Engineer Relationship Specialty Start Date End Date Melba Young MD [address] [facility] [address] [place] [id number] PCP - General Internal Medicine 06/27/24 Device Processing Engineer Relationship Specialty Start Date End Date Melba Young MD [address] [facility] [address] [place] [id number] PCP - General Internal Medicine 06/27/24 Team [...] August 22, 2024 End: August 22, 2024 Team Status: Inactive Member Role Status Dates Dr. Melba Young MD Primary Care Provider Active Start: August 27, 2024 End: August 27, 2024 Dr. Stephanie Orta MD Attending Provider Active Start: August 27, 2024 End: August 27, 2024 Dr. Stephanie Orta MD Referring Provider Active Start: August 27, 2024 End: August 27, 2024 Team Status: Inactive Member Role Status Dates Dr. Melba Young MD Primary Care Provider Active Start: October 17, 2024 End: October 17, 2024 Dr. Melba Young MD Attending Provider Active Start: October 17, 2024 End: October 17, 2024 Dr. Melba Young MD Referring Provider Active Start: October 17, 2024 End: October 17, 2024 Team Status: Inactive Member Role Status Dates Dr. Melba Young MD Primary Care Provider Active Start: October 24, 2024 End: October 24, 2024 Dr. Melba Young MD Attending Provider Active Start: October 24, 2024 End: October 24, 2024 Dr. Melba Young MD Referring Provider Active Start: October 24, 2024 End: October 24, 2024 Team Status: Active Member Role/Relationship Status Dates Dr. Melba Young MD Primary Care Provider Active Team Status: Inactive Member Role/Relationship Status Dates Dr. Melba Young MD Primary Care Provider Active Start: July 31, 2024 End: July 31, 2024 Dr. Stephanie Orta MD Attending Provider Active Start: July 31, 2024 End: July 31, 2024 Dr. Stephanie Orta MD Referring Provider Active Start: July 31, 2024 End: July 31, 2024 Team Status: Inactive Member Role/Relationship Status Dates Dr. Melba Young MD Primary Care Provider Active Start: August 03, 2024 End: August 03, 2024 Dr. Barrett Biswas MD Attending Provider Active S tart: August 03, 2024 End: August 03, 2024 Team Status: Inactive Member Role/Relationship Status Dates Dr. Melba Young MD Primary Care Provider Active Start: August 22, 2024 End: August 22, 2024 Dr. Stephanie Orta MD Attending Provider Active Start: August 22, 2024 End: August 22, 2024 Dr. Stephanie Orta MD Referring Provider Active Start: August 22, 2024 End: August 22, 2024 Team Status: Inactive Member Role/Relationship Status Dates Dr. Melba Young MD Primary Care Provider Active Start: August 27, 2024 End: August 27, 2024 Dr. Stpehanie Orta MD Attending Provider Active Start: August 27, 2024 End: August 27, 2024 Dr. Stephanie Orta MD Referring Provider Active Start: August 27, 2024 End: August 27, 2024 Team Status: Inactive Member Role/Relationship Status Dates Dr. Melba Young MD Primary Care Provider Active Start: October 17, 2024 End: October 17, 2024 Dr. Melba Young MD Attending Provider Active Start: October 17, 2024 End: October 17, 2024 Dr. Melba Young MD Referring Provider Active Start: October 17, 2024 End: October 17, 2024 Team Status: Inactive Member Role/Relationship Status Dates Dr. Melba Young MD Primary Care Provider Active Start: October 24, 2024 End: October 24, 2024 Dr. Mleba Young MD Attending Provider Active Start: October 24, 2024 End: October 24, 2024 Dr. Melba Young MD Referring Provider Active Start: October 24, 2024 End: October 24, 2024 Team Status: Inactive Member Role/Relationship Status Dates Dr. Melba Young MD Primary Care Provider Active Start: November 02, 2024 End: November 02, 2024 Dr. Barrett Biswas MD Attending Provider Active S tart: November 02, 2024 End: November 02, 2024 Team Status: Inactive Member Role/Relationship Status Dates Dr. Melba Young MD Primary Care Provider Active Start: November 23, 2024 End: November 23, 2024 Dr. Stephanie Orta MD Attending Provider Active Start: November 23, 2024 End: November 23, 2024 Dr. Stephanie Orta MD Referring Provider Active Start: November 23, 2024 End: November 23, 2024 Team Status: Inactive Member Role/Relationship Status Dates Dr. Melba Young MD Primary Care Provider Active Start: October 17, 2024 End: October 17, 2024 Dr. Melba Young MD Attending Provider Active Start: October 17, 2024 End: October 17, 2024 Dr. Melba Young MD Referring Provider Active Start: October 17, 2024 End: October 17, 2024 Team Status: Inactive Member Role/Relationship Status Dates Dr. Melba Young MD Primary Care Provider Active Start: October 24, 2024 End: October 24, 2024 Dr. Melba Young MD Attending Provider Active Start: October 24, 2024 End: October 24, 2024 Dr. Melba Young MD Referring Provider Active Start: October 24, 2024 End: October 24, 2024 Team Status: Inactive Member Role/Relationship Status Dates Dr. Melba Young MD Primary Care Provider Active Start: November 02, 2024 End: November 02, 2024 Dr. Barrett Biswas MD Attending Provider Active S tart: November 02, 2024 End: November 02, 2024 Team Status: Inactive Member Role/Relationship Status Dates Dr. Melba Young MD Primary Care Provider Active Start: November 23, 2024 End: November 23, 2024 Dr. Stephanie Orta MD Attending Provider Active Start: November 23, 2024 End: November 23, 2024 Dr. Stephanie Orta MD Referring Provider Active Start: November 23, 2024 End: November 23, 2024 Team Status: Active Member Role/Relationship Status Dates Dr. Melba Young MD Primary Care Provider Active Start: January 16, 2025 Dr. Melba Young MD Referring Provider Active Start: January 16, 2025 Olivia Carlos Attending Provider Active Start: 2024 Team Status: Inactive Member Role/Relationship Status Dates Dr. Mleba Young MD Primary Care Provider Active Start: January 16, 2025 End: January 16, 2025 Dr. Melba Young MD Referring Provider Active Start: January 16, 2025 End: January 16, 2025 Karolina Blanc PA, PA Attending Provider Active Start: January 16, 2025 End: January 16, 2025 Team Status: Inactive Member Role/Relationship Status Dates Dr. Melba Young MD Primary Care Provider Active Start: January 16, 2025 End: January 16, 2025 Dr. Melba Young MD Referring Provider Active Start: January 16, 2025 End: January 16, 2025 Olivia Carlos Attending Provider Active Start: 2024 End: January 16, 2025 Team Status: Inactive Member Role/Relationship Status Dates Dr. Melba Young MD Primary Care Provider Active Start: January 16, 2025 End: January 16, 2025 Dr. Barrett Biswas MD Attending Provider Active S tart: January 16, 2025 End: January 16, 2025 Team Status: Active Member Role/Relationship Status Dates Dr. Melba Young MD Primary care physician Activ e Team Status: Inactive Member Role/Relationship Status Dates Dr. Melba Young MD Primary care physician Activ e Start: October 17, 2024 End: October 17, 2024 Dr. Melba Young MD Attending physician Active Start: October 17, 2024 End: October 17, 2024 Dr. Melba Young MD Referring Provider Active Start: October 17, 2024 End: October 17, 2024 Team Status: Inactive Member Role/Relationship Status Dates Dr. Melba Young MD Primary care physician Activ e Start: October 24, 2024 End: October 24, 2024 Dr. Melba Yougn MD Attending physician Active Start: October 24, 2024 End: October 24, 2024 Dr. Melba Young MD Referring Provider Active Start: October 24, 2024 End: October 24, 2024 Team Status: Inactive Member Role/Relationship Status Dates Dr. Melba Young MD Primary care physician Activ e Start: November 02, 2024 End: November 02, 2024 Dr. Barrett Biswas MD Attending physician Active Start: November 02, 2024 End: November 02, 2024 Team Status: Inactive Member Role/Relationship Status Dates Dr. Melba Young MD Primary care physician Activ e Start: November 23, 2024 End: November 23, 2024 Dr. Stephanie Orta MD Attending physician Active Start: November 23, 2024 End: November 23, 2024 Dr. Stephanie Orta MD Referring Provider Active Start: November 23, 2024 End: November 23, 2024 Team Status: Inactive Member Role/Relationship Status Dates Dr. Melba Young MD Primary care physician Activ e Start: January 16, 2025 End: January 16, 2025 Dr. Melba Young MD Referring Provider Active Start: January 16, 2025 End: January 16, 2025 Dr. Barrett Biswas MD Attending physician Active Start: January 16, 2025 End: January 16, 2025 Team Status: Inactive Member Role/Relationship Status Dates Dr. Melba Young MD Primary care physician Activ e Start: January 16, 2025 End: January 16, 2025 Dr. Melba Young MD Referring Provider Active Start: January 16, 2025 End: January 16, 2025 Karolina Blanc PA, PA Attending physician Active Start: January 16, 2025 End: January 16, 2025 Team Status: Inactive Member Role/Relationship Status Dates Dr. Melba Young MD Primary care physician Activ e Start: January 16, 2025 End: January 16, 2025 Dr. Barrett Biswas MD Attending physician Active Start: January 16, 2025 End: January 16, 2025 Team Status: Inactive Member Role/Relationship Status Dates Dr. Melba Young MD Primary care physician Activ e Start: February 01, 2025 End: February 01, 2025 Dr. Barrett Biswas MD Attending physician Active Start: February 01, 2025 End: February 01, 2025 Team Status: Inactive Member Role/Relationship Status Dates Dr. Melba Young MD Primary care physician Activ e Start: November 23, 2024 End: November 23, 2024 Dr. Stephanie Orta MD Attending physician Active Start: November 23, 2024 End: November 23, 2024 Dr. Stephanie Orta MD Referring Provider Active Start: November 23, 2024 End: November 23, 2024 Team Status: Inactive Member Role/Relationship Status Dates Dr. Melba Young MD Primary care physician Activ e Start: January 16, 2025 End: January 16, 2025 Dr. Melba Young MD Referring Provider Active Start: January 16, 2025 End: January 16, 2025 Dr. Barrett Biswas MD Attending physician Active Start: January 16, 2025 End: January 16, 2025 Team Status: Inactive Member Role/Relationship Status Dates Dr. Melba Young MD Primary care physician Activ e Start: January 16, 2025 End: January 16, 2025 Dr. Melba Young MD Referring Provider Active Start: January 16, 2025 End: January 16, 2025 Karolina GAONA PA Attending physician Active Start: January 16, 2025 End: January 16, 2025 Team Status: Inactive Member Role/Relationship Status Dates Dr. Melba Young MD Primary care physician Activ e Start: January 16, 2025 End: January 16, 2025 Dr. Barrett Biswas MD Attending physician Active Start: January 16, 2025 End: January 16, 2025 Team Status: Inactive Member Role/Relationship Status Dates Dr. Melba Young MD Primary care physician Activ e Start: February 01, 2025 End: February 01, 2025 Dr. Barrett Biswas MD Attending physician Active Start: February 01, 2025 End: February 01, 2025 Team Status: Inactive Member Role/Relationship Status Dates Dr. Melba Young MD Primary care physician Activ e Start: February 14, 2025 End: February 14, 2025 Karolina GAONA, PA Attending physician Active Start: February 14, 2025 End: February 14, 2025 Karolina Blanc PA, PA Referring Provider Active Start: February 14, 2025 End: February 14, 2025 Team Status: Active Member Role/Relationship Status Dates Dr. Melba Young MD Primary care physician Activ e Start: February 14, 2025 Dr. Barrett Biswas MD Attending physician Active Start: February 14, 2025 Team Status: Active Member Role/Relationship Status Dates Dr. Melba Young MD Primary care physician Activ e Start: February 15, 2025 Dr. Stephanie Orta MD Attending physician Active Start: February 15, 2025 Dr. Stephanie Orta MD Referring Provider Active Start: February 15, 2025 Team Status: Inactive Member Role/Relationship Status Dates Dr. Melba Young MD Primary care physician Activ e Start: February 21, 2025 End: February 21, 2025 Dr. Melba Young MD Referring Provider Active Start: February 21, 2025 End: February 21, 2025 Elena Lanza NP-C Attending physician Active Start: February 21, 2025 End: February 21, 2025 Team Status: Inactive Member Role/Relationship Status Dates Dr. Melba Young MD Primary care physician Activ e Start: March 01, 2025 End: March 01, 2025 Dr. Melba Young MD Referring Provider Active Start: March 01, 2025 End: March 01, 2025 J LUIS DasC Attending physician Active Start: March 01, 2025 End: March 01, 2025 Team Status: Active Member Role/Relationship Status Dates Dr. Melba Young MD Primary care physician Activ e Start: March 01, 2025 J LUIS DasC Attending physician Active Start: March 01, 2025 Elena Lanza NP-C Referring Provider Active Start: March 01, 2025 Source Comments (unrecognize d section and content) In the event this informatio n is protected by the Federal Confidentiality of Alcohol and Drug Abuse Patient Records regulations: The Federal rules restrict any use of the information to criminally investigate or prosecute any alcohol or drug abuse patient.[facility] the event this information is protected by the Federal Confidentiality of Alcohol and Drug Abuse Patient Records regulations: The Federal rules restrict any use of the information to criminally investigate or prosecute any alcohol or drug abuse patient.[facility] the event this information is protected by the Federal Confidentiality of Alcohol and Drug Abuse Patient Records regulations: The Federal rules restrict any use of the information to criminally investigate or prosecute any alcohol or drug abuse patient.[facility] Reason for Visit (unrecogniz ed [...] BE BASED ON THE PRIMARY CLINICAL RECORDS. [facility]. provides no warranty or guarantee of the accuracy or completeness of information in this document.
== END | disposition home or self-care (01) ==
LOC: LABSPEC 16:16
PROVIDERS: PCP Internal Medicine; Referring Provider Urology; Visit Provider Urology
DX: R31.0 Gross hematuria (principal)
CPT/HCPCS: 88108; 88313